=== PATIENT | female | born 1980 | race Caucasian/White ===

== ENCOUNTER 2023-04-29 14:19 | Outpatient (OUT) | payer OTHER, SELFPAY ==
--- NOTE | 2023-04-29 14:20 | XR_ITS ---
[address] [address] Patient Name: SERA MAHONEY MRN: [id number] date: 1980 Sex: F Assigned Patient Location: [facility] Current Patient Location: [facility] Accession/Order Number: [id number] Exam Date: 04/29/2023 14:20 Report Date: 04/29/2023 21:47 At the request of: STEFAN SOTO Procedure: XR ankle RT min 3V PROCEDURE: XR ankle RT min 3V COMPARISON: 02/20/2023 HISTORY: RIGHT ANKLE PAIN FINDINGS: BONES:Stable talus arthroplasty. Moderate enthesopathic spurring of the calcaneus. No acute fracture, dislocation or joint effusion SOFT TISSUES:Negative. No visible soft tissue swelling. EFFUSION:No significant joint effusion OTHER: Negative. IMPRESSION: Stable talus arthroplasty Electronically authenticated by: WELLINGTON NIX Date: 04/29/2023 21:47
== END 2023-04-29 14:20 | disposition home or self-care (01) ==
LOC: RAD 14:19
PROVIDERS: Visit Provider Physician Assistant
DX: M19.171 Post-traumatic osteoarthritis, right ankle and foot (principal)
CPT/HCPCS: 73610

== ENCOUNTER 2023-11-20 10:46 | Outpatient (OUT) | payer OTHER, SELFPAY ==
--- NOTE | 2023-11-20 | XR_ITS ---
The [address] [address] Patient Name: SERA MAHONEY MRN: [id number] date: 1980 Sex: F Assigned Patient Location: [facility] Current Patient Location: [facility] Accession/Order Number: [id number] Exam Date: 11/20/2023 10:50 Report Date: 11/20/2023 12:37 At the request of: FRANCIA COLLAZO Procedure: XR ankle RT min 3V PROCEDURE: XR ankle RT min 3V COMPARISON: 04/29/2023 HISTORY: RIGHT ANKLE PAIN FINDINGS: BONES:Stable talus replacement. Anatomic alignment with no acute fracture, dislocation or mechanical failure. Mild to moderate degenerative changes with joint space narrowing. Moderate enthesopathic spurring of the calcaneus at the Achilles and plantar insertions SOFT TISSUES:Negative. No visible soft tissue swelling. EFFUSION:None visible. OTHER: Negative. XR/XR ankle RT min 3V IMPRESSION: Stable talus replacement Electronically authenticated by: WELLINGTON NIX Date: 11/20/2023 12:37
== END 2023-11-20 10:47 | disposition home or self-care (01) ==
LOC: RAD 10:46
PROVIDERS: Visit Provider Podiatrist Foot & Ankle Surgery
DX: Z96.661 Presence of right artificial ankle joint (principal)
CPT/HCPCS: 73610

== ENCOUNTER 2023-12-04 09:27 | Outpatient (OUT) | payer OTHER, SELFPAY ==
--- OUTSIDE RECORDS SUMMARY | 2023-12-04 09:33 | XMS_ITS | CCD ---
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 HETAL RAMOS Primary Care ARLETH Ji Attending Unavailable CELESTE, Dr. HETAL RAMOS Primary Care ARLETH Ji Attending Unavailable CELESTE, Dr. HETAL RAMOS Referring Unapai labviola ALONSO, Dr. HETAL RAMOS Primary Care Unavai labviola ALONSO, Dr. HETAL RAMOS Attending Unavai labviola ALONSO, Dr. HETAL RAMOS Referring Unavai labviola ALONSO, Dr. HETAL RAMOS Attending Unavai labviola ALONSO, Dr. HETAL RAMOS Referring Unavai labviola ALONSO, Dr. HETAL RAMOS Primary Care Dinavai labviola ALONSO, Dr. HETAL RAMOS Primary Care Dinapai labviola ALONSO, Dr. HETAL RAMOS Attending Unavai labviola ALONSO, Dr. HETAL RAMOS Referring Unavai lable ALONSO, Dr. HETAL RAMOS Attending Unavai labviola ALONSO, Dr. HETAL RAMOS Referring Unavai labviola ALONSO, Dr. HETAL RAMOS Primary Care DinavaFRANCIA Mukherjee Admitting Unavailable FRANCIA COLLAZO Attending Unavailable BOYD, DR WELLINGTON Forrest Consulting Unavailable FRANCIA COLLAZO Consulting Unavailable FRANCIA COLLAZO Admitting Unavailable FRANCIA COLLAZO Attending Unavailable LIT, DR JERZY Watts Consulting Unavailable FRANCIA COLLAZO Consulting Unavailable FRANCIA COLLAZO Admitting Unavailable HIGHLANDER, FRANCIA Anderson Attending Unavailable LIT, DR JERZY Watts Consulting Unavailable HIGHLANDER, FRANCIA Anderson Consulting Unavailable HIGHLANDER, FRANCIA Anderson Admitting Unavailable HIGHLANDER, FRANCIA Anderson Attending Unavailable HIGHLANDER, FRANCIA Anderson Admitting Unavailable HIGHLANDER, FRANCIA Anderson Attending Unavailable ZIEBER, DR JERZY Watts Consulting Unavailable HIGHLANDER, FRANCIA Anderson Consulting Unavailable HIGHLANDER, FRANCIA Anderson Admitting Unavailable HIGHLANDER, FRANCIA Anderson Attending Unavailable HIGHLANDER, FRANCIA Anderson Consulting Unavailable COOPERMARLYN Consulting Unavailable HIGHLANDER, FRANCIA Anderson Admitting Unavailable HIGHLANDER, FRANCIA Anderson Attending Unavailable HIGHLANDER, FRANCIA Anderson Consulting Unavailable KERN, CALEB Consulting Unavailable JOSE ., JENNI MITCHELL Consulting Unavailable SHARP, ELYSE Consulting Unavailable JEFF II, KIM Consulting Unavailable HIGHLANDER, FRANCIA Anderson Admitting Unavailable HIGHLANDER, FRANCIA Anderson Attending Unavailable ZIMARIUSZER, DR JERZY Watts Consulting Unavailable HIGHLANDER, FRANCIA Anderson Consulting Unavailable RbadenCesar agarwalif Unavailable Celeste VALE, Hetal Recio Primary Care Provider Hetal Alonso MD K Unavailable ALONSO, HETAL Primary Care Unavailable HUTCHINSON DPM, KOREY Attending Unavailable HUTCHINSON DPM, KOREY Referring Unavailable ALONSO, HETAL Primary Care Unavailable DEWAYNE GARRISON MD Attending Unavailable DEWAYNE GARRISON MD Referring Unavailable ALONSO, HETAL Primary Care Unavailable ALONSO, HETAL Primary Care Unavailable STEFAN SOTO Attending Unavailabl e STEFAN SOTO Referring Unavailabl e DEWAYNE GARRISON MD Attending Unavailable DEWAYNE GARRISON MD Referring Unavailable ALONSO, HETAL Primary Care Unavailable ALONSO, HETAL Primary Care Unavailable ALONSO, HETAL Primary Care Unavailable STEFAN SOTO Attending Unavailabl e ALONSO, HETAL K Attending Unavailable ALONSO, HETAL K Primary Care Unavailable ALONSO, HETAL K Attending Unavailable ALONSO, HETAL K Primary Care Unavailable ALONSO, HETAL Primary Care Unavailable HIGHLANDER, FRANCIA Anderson Attending Unavailable ALONSO, HETAL Primary Care Unavailable STEFAN SOTO Attending Unavailabl e STEFAN SOTO Referring Unavailabl e ALONSO, HETAL Primary Care Unavailable HUTCHINSON DPM, KOREY Attending Unavailable ALONSO, HETAL Primary Care Unavailable HUTCHINSON DPM, KOREY Attending Unavailable ALONSO, HETAL Primary Care Unavailable HUTCHINSON DPM, KOREY Attending Unavailable HUTCHINSON DPM, KOREY Referring Unavailable HETAL ALONSO MD Attending Unavailable HETAL ALONSO Primary Care Unavailable Allergies Allergy Classification Reported Allergen(s) Allergy Type Date of Onset Reaction(s) Facility Acetaminophen / oxyCODONE (2 sources) Acetaminophen / oxyCODONE; Translations: [Percocet TABS] [facility]: Macrolides (antibiotic) (1 source) Azithromycin; Translations: [Zithromax PACK] [facility] Work Phone: (20 sources) Acetaminophen / oxyCODONE; Translations: [Percocet TABS] Drug Allergy 2 Halluc[facility], Rash [facility] Work Phone: (18 sources) Azithromycin; Translations: [Zithromax PACK] Drug Allergy 2 [facility] Work Phone: (2 sources) Acetaminophen / oxyCODONE Drug Allergy [facility] [place] Repository (2 sources) Adhesive agent Drug allergy (disorder) [facility] [place] Repository (3 sources) Azithromycin; Translations: [AZITHROMYCIN] Drug Allergy 2 [facility] [place] Repository (1 source) Acetaminophen / oxyCODONE; Translations: [OXYCODONE-ACETAM INOPHEN] Drug Allergy [address] [facility] 3 Repository Medications Current Medications Medication Drug Class(es) Dates Sig (Normalized) Sig (Original) acetaminophen 325 mg / HYDROcodone bitartrate 5 mg oral tablet (6 sources) Opioid Agonist take 1 tablet by mouth every six hours HYDROcodone-Aceta minophen 5-325 MG 1 tablet as needed Orally every 6 hrs Active [id number] actuat albuterol 0.09 mg/actuat metered dose inhaler (1 source) beta2-Adrenergic Agonist Start: 10-21-2023 End: 10-20-2024 take 2 puff(s) by inhalation every four hours for wheezing albuterol (ProAir HFA) 90 mcg/actuation inhaler Indications: Bronchitis Inhale 2 puffs every 4 hours if needed for wheezing or shortness of breath. 8.5 g 0 10/21/2023 10/20/2024 Active amLODIPine 5 mg / benazepril hydrochloride 20 mg oral capsule (20 sources) Dihydropyridine Calcium Channel Irina, Angiotensin Converting Enzyme Inhibitor Start: 03-17-2023 End: 06-28-2023 take 1 capsule by mouth once daily amLODIPine-benaze priL (Lotrel) 5-20 mg capsule Indications: Benign essential hypertension Take 1 capsule by mouth once daily. 90 capsule 3 06/28/2023 Active Start: 12-14-2020 take 5-20 mg by mout h once daily amLODIPine Besy-Benazepril HCl - 5-20 MG Oral Capsule TAKE 1 CAPSULE Daily Quantity: 90 Refills: 1 Ordered: 28-Jul-2022 Hetal Alonso MD Start : 14-Dec-2020 Active amLODIPine Benzoate 1 MG/ML (6 sources) take 1 mg by mouth once daily amLODIPine Benzoate 1 MG/ML 5 mL Orally Once a day Active DULoxetine 20 mg delayed release oral capsule (13 sources) Serotonin and Norepinephrine Reuptake Inhibitor Start: take 1 capsule by mouth once daily in the morning Cymbalta 20 MG 1 capsule Orally daily in the AM for 30 days Apr, Active Start: 07-18-2022 take 1 capsule by mo uth once daily DULoxetine HCl - 20 MG Oral Capsule Delayed Release Particles one by mouth daily Quantity: 90 Refills: 3 Ordered: 18-Jul-2022 Hetal Alonso MD Start : 18-Jul-2022 Active Ethinyl Estradiol / Levonorgestrel (2 sources) Progestin, Estrogen, Progestin-containing Intrauterine Device Start: 04-12-2020 take 1 tablet by mouth once daily L norgest/e.estradioL-e.estrad (Seasonique) 0.15 mg-30 mcg (84)/10 mcg (7) tablets,dose pack,3 month tablet Take 1 tablet by mouth once daily. 0 04/12/2020 Active gabapentin 300 mg oral capsule (6 sources) Anti-epileptic Agent take 1 capsule by mouth twice daily Gabapentin 300 MG 1 capsule Orally twice daily G89.29 Active meloxicam 15 mg oral tablet (17 sources) Nonsteroidal Anti-inflammatory Drug Start: 06-28-2023 End: 06-28-2023 take 1 tablet by mouth once daily meloxicam (Mobic) 15 mg tablet Indications: Avascular necrosis of right talus (CMS/HCC) Take 1 tablet (15 mg) by mouth once daily. 90 tablet 3 06/28/2023 Active Start: 03-24-2021 End: 07-18-2022 Meloxicam 15 MG Oral Tablet Quantity: 0 Refills: 0 Ordered: 24-Mar-2021 DO Start : 24-Mar-2021 End : 18-Jul-2022 Complete norethindrone 0.35 mg oral tablet (6 sources) take 1 tablet by akhil th every twenty-four hours Norethindrone 0.35 MG 1 tablet Orally Once a day Active [id number] Amitriptyline HCL 2%, Capsaicin 0.025%, Clonidine HCL 0.23%, Gabapentin 6%, Lidocaine HCL 5% (6 sources) Start: 04-05-2023 [id number] Amitriptyline HCL 2%, Capsaicin 0.025%, Clonidine HCL 0.23%, Gabapentin 6%, Lidocaine HCL 5% as directed Topical 1-2 grams every 6-8 hours as needed for 30 days Apr, Active TENS Unit (1 source) Start: 05-24-2023 TENS Unit Use as directed. May, Active Completed/Discontinued Medications Medication Drug Class(es) Dates Sig (Normalized) Sig (Original) amoxicillin 500 mg oral tablet (2 sources) Penicillin-class Antibacterial Start: 09-11-2022 take 1 tablet by mouth twice daily Amoxicillin 500 MG Oral Tablet One by mouth twice a day Quantity: 20 Refills: 1 Ordered: 11-Sep-2022 Hetal Alonso MD Start : 11-Sep-2022 Active betamethasone 0.5 mg/ml / clotrimazole 10 mg/ml topical cream (12 sources) Azole Antifungal, Corticosteroid Start: 08-11-2021 End: 07-18-2022 Clotrimazole-Betam ethasone 1-0.05 % External Cream APPLY AND RUB IN A THIN FILM TO AFFECTED AREAS TWICE DAILY.(AM AND PM). Quantity: 1 Refills: 3 Ordered: 11-Aug-2021 Hetal Alonso MD Start : 11-Aug-2021 End : 18-Jul-2022 Complete brompheniramine maleate 0.4 mg/ml / dextromethorphan hydrobromide 2 mg/ml / pseudoephedrine hydrochloride 6 mg/ml oral solution (1 source) alpha-Adrenergic Agonist, Uncompetitive N-szgkbi-G-aspartat e Receptor Antagonist, Sigma-1 Agonist Start: 10-21-2023 End: 10-31-2023 take 5 mL by mouth four times daily as needed for cough brompheniramine-ps eudoeph-DM 2-30-10 mg/5 mL syrup Indications: Bronchitis Take 5 mL by mouth 4 times a day as needed for cough for up to 10 days. 120 mL 0 10/21/2023 10/31/2023 24 hr buPROPion hydrochloride 150 mg extended release oral tablet (8 sources) Aminoketone Start: 03-24-2021 End: 07-18-2022 take 1 tablet by mouth once daily buPROPion HCl ER (XL) 150 MG Oral Tablet Extended Release 24 Hour TAKE 1 TABLET BY MOUTH DAILY Quantity: 90 Refills: 0 Ordered: 23-Mar-2022 Hetal Alonso MD Start : 24-Mar-2021 End : 18-Jul-2022 Complete Camrese 0.15-0.03 &0.01 MG Oral Tablet (17 sources) Start: 12-12-2020 Camrese 0.15-0.03 &0.01 MG Oral Tablet Quantity: 0 Refills: 0 Ordered: 12-Dec-2020 DO Start : 12-Dec-2020 Active ciprofloxacin 500 mg oral tablet (1 source) Quinolone Antimicrobial Start: 12-11-2021 take 1 tablet by mouth twice daily Ciprofloxacin HCl - 500 MG Oral Tablet one by mouth twice a day for 7 days Quantity: 14 Refills: 0 Ordered: 11-Dec-2021 Hetal Alonso MD Start : 11-Dec-2021 Active Disability Placard (7 sources) Start: 07-18-2022 Disability Placard Handicap Placard 5years, DX: Arthritis Quantity: 2 Refills: 0 Ordered: 18-Jul-2022 Hetal Alonso MD Start : 18-Jul-2022 Active fluconazole 150 mg oral tablet (15 sources) Azole Antifungal Start: 10-21-2023 End: 10-21-2023 take 1 tablet by mouth once fluconazole (Diflucan) 150 mg tablet Indications: Bronchitis Take 1 tablet (150 mg) by mouth 1 time for 1 dose. 1 tablet 0 10/21/2023 10/21/2023 Start: 09-11-2022 Fluconazole 15 0 MG Oral Tablet TAKE 1 TABLET ONCE AND REPEAT IN 1 WEEK. Quantity: 2 Refills: 1 Ordered: 11-Sep-2022 Hetal Alonso MD Start : 11-Sep-2022 Active Start: 08-11-2021 End: 07-18-2022 take 1 tablet by mouth once daily Fluconazole 100 MG Oral Tablet one by mouth daily Quantity: 7 Refills: 0 Ordered: 11-Aug-2021 Hetal Alonso MD Start : 11-Aug-2021 End : 18-Jul-2022 Complete ibuprofen 800 mg oral tablet (10 sources) Nonsteroidal Anti-inflammatory Drug Start: 12-11-2021 End: 07-18-2022 take 1 tablet by mouth every eight hours at mealtime as needed Ibuprofen 800 MG Oral Tablet TAKE 1 TABLET EVERY 8 HOURS WITH FOOD NEEDED. Quantity: 30 Refills: 1 Ordered: 11-Dec-2021 Hetal Alonso MD Start : 11-Dec-2021 End : 18-Jul-2022 Complete ketorolac tromethamine 10 mg oral tablet (9 sources) Nonsteroidal Anti-inflammatory Drug, Cyclooxygenase Inhibitor Start: 12-18-2021 End: 07-18-2022 take 1 tablet by mouth every six hours at mealtime Ketorolac Tromethamine 10 MG Oral Tablet TAKE 1 TABLET EVERY 6 HOURS WITH FOOD. Quantity: 20 Refills: 0 Ordered: 18-Dec-2021 Arleth Johnson Start : 18-Dec-2021 End : 18-Jul-2022 Complete methylPREDNISolone (1 source) Corticosteroid Start: 10-21-2023 End: 10-28-2023 methylPREDNISolone (Medrol Dospak) 4 mg tablets Indications: Bronchitis Take as directed on package. 21 tablet 0 10/21/2023 10/28/2023 tamsulosin hydrochloride 0.4 mg oral capsule (10 sources) alpha-Adrenergic Irina Start: 12-11-2021 End: 07-18-2022 take 1 capsule by mouth once daily Tamsulosin HCl - 0.4 MG Oral Capsule TAKE 1 CAPSULE Daily Quantity: 30 Refills: 0 Ordered: 11-Dec-2021 Hetal Alonso MD Start : 11-Dec-2021 End : 18-Jul-2022 Complete Problems Active Problems Problem Classification Problem Date Documented Da te Episodic/Chronic Adjustment disorders (19 sources) Adjustment disorder with mixed anxiety and depressed mood; Translations: [Adjustment disorder with mixed anxiety and depressed mood] Onset: 07-18-2023 07-18-2023 Chronic Chronic obstructive pulmonary disease and bronchiectasis (4 sources) Bronchitis, not specified as acute or chronic; Translations: [Bronchitis] Onset: 10-21-2023 Episodic Deficiency and other anemia (1 source) Anemia, unspecified; Translations: [ANEMIA UNSPECIFIED] Onset: 01-23-2023 Episodic Endometriosis (2 sources) Uterine adenomyosis; Translations: [Adenomyosis] Onset: 08-17-2013 07-18-2023 Chronic Essential hypertension (20 sources) Benign essential hypertension; Translations: [Benign essential hypertension] Onset: 01-23-2023 06-28-2023 Chronic Fracture of lower limb (17 sources) Fracture of talus; Translations: [Closed fracture of astragalus] Episodic Immunizations and screening for infectious disease (20 sources) Contact with and (suspected) exposure to other viral communicable diseases; Translations: [Exposure to influenza] Episodic Malaise and fatigue (17 sources) Fatigue; Translations: [Other malaise and fatigue] Episodic Comment on above: Added by Problem Kenia gilliam Migration; 2013-10-13; Mood disorders (19 sources) Depressive disorder; Translations: [Depressive disorder, not elsewhere classified] Onset: 07-18-2023 07-18-2023 Chronic Comment on above: Added by Problem Kenia gilliam Migration; 2013-10-13; Osteoarthritis (5 sources) Post-traumatic osteoarthritis, right ankle and foot; Translations: [POST-TRAUM OSTEOARTHRITIS RT ANK FT] Onset: 01-23-2023 Chronic Other acquired deformities (1 source) Contracture, right ankle; Translations: [CONTRACTURE RIGHT ANKLE] Onset: 01-23-2023 Chronic Other aftercare (1 source) alf (current) use of aspirin; Translations: [SKI TOW OPERATOR CURRENT USE OF ASPIRIN] Onset: 01-23-2023 Episodic Other bone disease and musculoskeletal deformities (20 sources) Avascular necrosis of the talus; Translations: [Aseptic necrosis of talus] Onset: 06-28-2023 06-28-2023 Chronic Other bone disease and musculoskeletal deformities (7 sources) Idiopathic aseptic necrosis of right ankle; Translations: [IDIOPATH ASEPTIC NECROSIS RT ANKLE] Onset: 01-08-2023 Chronic Other connective tissue disease (1 source) Achilles tendinitis, right leg; Translations: [ACHILLES TENDINITIS RIGHT LEG] Onset: 01-23-2023 Episodic Other connective tissue disease (1 source) Posterior tibial tendinitis, right leg; Translations: [POSTERIOR TIBIAL TENDINITIS RT LEG] Onset: 01-23-2023 Episodic Other connective tissue disease (1 source) Plantar fascial fibromatosis; Translations: [PLANTAR FASCIAL FIBROMATOSIS] Onset: 01-23-2023 Episodic Other injuries and conditions due to external causes (17 sources) Injury of hip region; Translations: [Hip and thigh injury] Episodic Other nervous system disorders (6 sources) Chronic pain; Translations: [Other chronic pain] Chronic Other nervous system disorders (6 sources) Complex regional pain syndrome, type I; Translations: [Complex regional pain syndrome I, unspecified] Chronic Other nervous system disorders (2 sources) Other chronic pain Chronic Other nervous system disorders (2 sources) Complex regional pain syndrome I, unspecified Chronic Other nervous system disorders (4 sources) Reflex sympathetic dystrophy of lower extremity; Translations: [Complex regional pain syndrome I of right lower limb] Chronic Other nervous system disorders (2 sources) Complex regional pain syndrome of lower limb; Translations: [Complex regional pain syndrome I of unspecified lower limb] Onset: 05-14-2023 07-18-2023 Chronic Other nervous system disorders (2 sources) Chronic pain syndrome; Translations: [Chronic pain syndrome] Onset: 05-14-2023 07-18-2023 Chronic Other non-traumatic joint disorders (1 source) Other specified joint disorders, right ankle and foot; Translations: [OTHER SPEC JOINT D/O RT ANKLE FOOT] Onset: 01-23-2023 Episodic Other non-traumatic joint disorders (7 sources) Pain in right ankle and joints of right foot; Translations: [PAIN IN RIGHT ANKLE] Onset: 07-25-2022 Episodic Other nutritional; endocrine; and metabolic disorders (20 sources) Body mass index 40+ - severely obese; Translations: [Body Mass Index 50.0-59.9, adult] Onset: 05-14-2023 07-18-2023 Chronic Other screening for suspected conditions (not mental disorders or infectious disease) (7 sources) Patient encounter status; Translations: [Other screening mammogram] Episodic Residual codes; unclassified (17 sources) Uses contraception; Translations: [Other specified conditions influencing health status] Episodic Residual codes; unclassified (17 sources) H/O: ; Translations: [Personal history of other genital system and obstetric disorders] Episodic Unclassified (1 source) PERSONAL HISTORY OF COVID-19; Translations: [PERSONAL HISTORY OF COVID-19] Onset: 01-23-2023 Past or Other Problems Problem Classification Problem Date Documented Date Episodic/Chronic Abdominal pain (16 sources) Right flank pain; Translations: [Abdominal pain, other specified site] Onset: 07-18-2023 Resolved: 07-18-2023 07-18-2023 Episodic Calculus of urinary tract (20 sources) Renal colic; Translations: [Renal colic] Onset: 07-18-2023 Resolved: 07-18-2023 07-18-2023 Episodic Genitourinary symptoms and ill-defined conditions (18 sources) Blood in urine; Translations: [Hematuria, unspecified] Onset: 07-18-2023 Resolved: 07-18-2023 07-18-2023 Episodic Lymphadenitis (4 sources) Lymphadenopathy; Translations: [Enlargement of lymph nodes] Onset: 07-18-2023 Resolved: 07-18-2023 07-18-2023 Episodic Mycoses (18 sources) Candidal intertrigo; Translations: [Candidiasis of skin and nails] Onset: 07-18-2023 Resolved: 07-18-2023 07-18-2023 Episodic Other connective tissue disease (5 sources) Cramp in lower limb; Translations: [Cramp of limb] Onset: 07-18-2023 Resolved: 07-18-2023 07-18-2023 Episodic Other connective tissue disease (4 sources) Pain in right foot; Translations: [PAIN IN RIGHT FOOT] Onset: 11-14-2022 Episodic Other injuries and conditions due to external causes (2 sources) Injury of left hip region; Translations: [Unspecified injury of left hip, initial encounter] Onset: 07-18-2023 Resolved: 07-18-2023 07-18-2023 Episodic Other non-traumatic joint disorders (2 sources) Ankle pain; Translations: [Pain in right ankle and joints of right foot] Onset: 05-14-2023 Resolved: 07-18-2023 07-18-2023 Episodic Other and delivery including normal (2 sources) Vaginal delivery; Translations: [Encounter for full-term uncomplicated delivery] Onset: 06-03-2012 07-18-2023 Episodic Other upper respiratory disease (19 sources) Congestion of nasal sinus; Translations: [Other disease of nasal cavity and sinuses] Onset: 07-18-2023 Resolved: 07-18-2023 07-18-2023 Episodic Other upper respiratory infections (20 sources) Acute pharyngitis; Translations: [Acute pharyngitis] Onset: 07-18-2023 Resolved: 07-18-2023 07-18-2023 Episodic Residual codes; unclassified (19 sources) History of ankle surgery; Translations: [Other postprocedural status] Onset: 05-14-2023 07-18-2023 Episodic Spondylosis; intervertebral disc disorders; other back problems (20 sources) Backache; Translations: [Backache, unspecified] Onset: 07-18-2023 Resolved: 07-18-2023 Episodic Superficial injury; contusion (19 sources) Foreign body of foot; Translations: [Superficial foreign body (splinter) of foot and toe(s), without major open wound and without mention of infection] Onset: 07-18-2023 Resolved: 07-18-2023 07-18-2023 Episodic Unclassified (2 sources) Onset: 06-28-2023 Resolved: 10-21-2023 06-28-2023 Results Test Name Value Interpretation Reference Range Facility Ambulatory Clinical Summaryo n 05-14-2023 Ambulatory Clinical Summary SERA WOO :1980 Visit Date:05/14/2023 Ambulatory Visit Instructions Your Diagnosis Right ankle pain CRPS 1, lower extremity History of ankle surgery Morbid obesity Chronic pain syndrome Your Care Team Attending Physician - DEWAYNE GARRISON MD Primary Care Physician - HETAL ALONSO MD Referring Physician - DEWAYNE GARRISON MD Procedures Performed OPEN REDUCTION OF A DISLOCATED TALUS (04/12/2020) Cholecystectomy; ACCESSORY NAVICULAR BONE REMOVAL Cholecystectomy (procedure) Ankle Surgery Discharge Vitals Heart Rate (Apical) 88 Blood Pressure 141/88 Height 66.14 in (168 cm) Weight 280.04 lb (127 kg) BMI 45 Systolic Blood Pressure: 141 mmHg High (05/14/23 11:18:00) Diastolic Blood Pressure: 88 mmHg (05/14/23 11:18:00) Apical Heart Rate: 88 bpm (05/14/23:18:00) SpO2: 98 % (05/14/23 11:18:00) Mean Arterial Pressure: 106 mmHg (05/14/23 11:18:00) BP Site2: Left arm (05/14/23 11:18:00) Height/Length Measured: 168 cm (05/14/23 11:18:00) Weight Measured: 127 kg (05/14/23 11:18:00) Body Mass Index Measured: 45 kg/m2 (05/14/23 11:18:00) Weight Measured - lbs2: 280 lb (05/14/23:18:00) Height/Length Measured - in2: 66 in (05/14/23 11:18:00) Body Mass Index Measured English2: 45.19 kg/m2 (05/14/23 11:18:00) BSA: 2.43 m2 (05/14/23 11:18:00) Ht/Wt Measurement Refused by Patient?2: No (05/14/23 11:18:00) What to do next Scheduled Follow-Up Appointments Appointment Type Reason for visit Day With Date Time Where City&State PMR Ortho F/U - (45) Saturday Mirza D (PT) (2) May 15, 2023 09:00 am EDT LW PT [address] [facility] [address] PM Follow Up LE pain Saturday DEWAYNE GARRISON MD June 17, 2023 01:15 pm EDT MM PMCL [address] [facility] [address] [facility] [address] Medications What How Much When Why Instructions New meloxicam (Mobic 15 mg oral tablet) 1 Tabs Oral DAILY Duration: 30 Days Refills: 5 Pickup at [facility] #[id number] New topiramate (Topamax 50 mg oral tablet) See instructions Refills: 5 1-2 tabs ORAL HS Pickup at [facility] #[id number] New venlafaxine (venlafaxine 37.5 mg oral tablet = effexor) 1 Tabs Oral TWICE A DAY Duration: 30 Days Refills: 5 Pickup at [facility] #[id number] Unchanged acetaminophen-hydrocodone (acetaminophen-HYDROcodone 325 mg-5 mg oral tablet) 2 Tabs Oral EVERY SIX HOURS as needed for Moderate to Severe Pain Closed dislocation of right talus Unchanged amlodipine-benazepril (amlodipine-benazepril 5 mg-20 mg oral capsule) 90 EA, TAKE 1 CAPSULE BY MOUTH DAILY Unchanged ethinyl estradiol-levonorgestrel (Ashlyna oral tablet) 1 Tabs Oral AT BEDTIME Unchanged methylPREDNISolone (Medrol 4 mg oral tablet) 1 Packets Oral DAILY Duration: 6 Days as directed on package labeling Unchanged ondansetron (Zofran 8 mg oral tablet) 1 Tabs Oral EVERY EIGHT HOURS as needed for as needed for nausea/vomiting Pharmacy Information [facility] #[id number]: [address] [place], [place] [id number] [phone] What How Much When Comments Stop Taking apixaban (Eliquis 2.5 mg oral tablet) 1 Tabs Oral TWICE A DAY Duration: 30 Days Stop Taking DULoxetine (DULoxetine 20 mg oral delayed release capsule) 90 EA, TAKE 1 CAPSULE BY MOUTH DAILY Allergies Percocet Hallucination Zithromax HIVES Problems Ongoing - Any problem that you are currently receiving treatment for. Acute pharyngitis Adjustment disorder with mixed anxiety and depressed mood Avascular necrosis of the talus Backache Benign essential hypertension Blood in urine Body mass index 40+ - severely obese Candidal intertrigo Chronic pain syndrome Congestion of nasal sinus CRPS 1, lower extremity History of ankle surgery Lymphadenopathy Morbid obesity Right ankle pain Common Emergency Awareness Tips IS IT A STROKE? Act FAST and Check for these signs: FACE Does the face look uneven? ARM Does one arm drift down? SPEECH Does their speech sound strange? TIME Call at any sign of stroke Heart Attack Signs Chest discomfort: Most heart attacks involve discomfort in the center of the chest and lasts more than a few minutes, or goes away and comes back. It can feel like uncomfortable pressure, squeezing, fullness or pain. Discomfort in upper body: Symptoms can include pain or discomfort in one or both arms, back, neck, jaw or stomach. Shortness of breath: With or without discomfort. Other signs: Breaking out in a cold sweat, nausea, or lightheaded. Remember, MINUTES DO MATTER. If you experience any of these heart attack warning signs, call --1 to get immediate medical attention! [facility] Comprehensive Intake - Texto n 05-14-2023 Comprehensive Intake - Text Comprehensive Intake Entered On: 05/14/2023 11:20 EDT Performed On: 05/14/2023 11:18 EDT by Destinee James Summary Chief Complaint : pt reports pain in ankle and foot, pt rartes pain a 5 out of 10 on vas, pt name and verifed. Bladder Control Issues? : No Urine Leakage? : No Presence or absence of urinary incontinence assessed : Yes CPT-II Medication list doc'd in medical record : Yes Influenza immunization administered or previously received : No Pneumococcal vaccine administered or previously received : No Destinee James - 05/14/2023 11:18 EDT Measurements Ht/Wt Measurement Refused by Patient? : No Weight Measured : 127 kg(Converted to: 280 lb 0 oz, 279.987 lb) Height/Length Measured : 168 cm(Converted to: 5 ft 6 in, 66.14 in) Body Mass Index Measured : 45 kg/m2 Body Mass Index documented : Yes Weight Measured - lbs : 280 lb(Converted to: 280 lb 0 oz, 127 kg) Height/Length Measured - in : 66 in(Converted to: 5 ft 6 in, 168 cm) Body Mass Index Measured Fijian : 45.19 kg/m2 BSA Fijian : 2.43 m2 Destinee James - 05/14/2023 11:18 EDT Vitals Require BP : Yes Systolic Blood Pressure : 141 mmHg (HI) Diastolic Blood Pressure : 88 mmHg Mean Arterial Pressure : 106 mmHg Apical Heart Rate : 88 bpm BP Site : Left arm Last Systolic BP : greater than or equal to 140 mmHg Last Diastolic BP : 80-89 mmHg SpO2 : 98 % Pain Present : No actual or suspected pain Pain : 5 Pain severity quantified : No pain present Destinee James - 05/14/2023 11:18 EDT Infection Screening - Ambulatory Exposure AND/OR close contact with a person under investigation or laboratory-confirmed COVID-19 individual within 14 days of symptom onset AND/OR any of the following: : No Do you live/work in a high risk situation (congregated living, hemodialysis, infusion clinic, correction, assisted living, long term, homeless care home, etc.)? : No Destinee James - 05/14/2023 11:18 EDT Depression Screening Is patient currently : None of the Below Feeling Down, Depressed, Hopeless : Not at all Little Interest - Pleasure in Activities : Not at all Initial Depression Screen Score : 0 Depression Screening Score 0 : No Destinee James - 05/14/2023 11:18 EDT Falls Risk Assessment Is the patient ambulatory (mobile) : Yes Have you had 2 or more falls in the past year : No Have you had a fall within the past year that has caused an injury : No Patient screen for fall risk : no falls in last year OR 1 fall with no injury in last year Destinee James - 05/14/2023 11:18 EDT [facility] PM-OP Progress Notes-Provide puja 05-14-2023 PM-OP Progress Notes-Provider Chief Complaint pt reports pain in ankle and foot, pt rartes pain a 5 out of 10 on vas, pt name and verifed. History of Present Illness This is a pleasant 42-year-old patient who presents to the pain clinic at [facility], for evaluation and treatment of her right ankle pain. Patient is referred to me by Dr. Gomez podiatry. Patient is accompanied by her who remains with her for the entire visit. History of her right ankle pain dates back to 3 years ago when she had a fall off a ladder. Patient suffered dislocation of her right ankle and he had surgery done. Patient continued to have pain and went to see a doctor in [place]. She had 3 deep printed talus implant done in December 2020. Patient states that surgery helped her a little however she continues to have chronic right ankle pain. She had her third surgery in April 2021 which was plantar fasciotomy. The surgery did not help her at all. Finally she had a her for surgery in January 2023 which was right ankle arthroplasty. Patient is still continues to have right foot and ankle pain. She has been walking with a cane. Patient was working 3 years ago and has not been able to go back to work since her injury. 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 Patient does want to go back to work and be able to perform activities of her daily living without any assistance. Patient has had physical therapy for 3 years and is still in physical therapy at [facility]. Her last session is tomorrow. Her physical therapy has been discontinued as she has not shown much progress. Patient hands been on and will which caused stomach irritation she stopped it. She had tried Cymbalta 20 mg daily which was not effective and she stopped it. She is currently on gabapentin 600 mg at bedtime without any relief. Patient states the gabapentin results and swelling of her right ankle. Patient has had muscle relaxants in the past which make her too sleepy. Patient had a lumbar sympathetic block 2 months ago which did not help her at all. She had an MRI of lumbar spine which shows a herniated disc at L5-S1 level. She was offered an epidural block however patient is leery about getting any spine injections at this point. Patient rates her pain as 3 on a visual analog scale of 0-10 while she is sitting. However her pain goes to a level of 6 on the same scale with walking. On her worst days her pain is rated as 8-9 on the same scale. She describes the pain as stabbing and burning in character. Aggravating factors include walking and prolonged standing. Alleviating factors include application of ice, elevation of RIGHT foot and rest. Patient also has difficulty sleeping due to nocturnal pain and spasm. Patient's pain affects activities of daily living. She rates quality of social life is below average with current treatment. Review of Systems Constitutional symptoms: No fever, Skin symptoms: No rash, Eye symptoms: No recent vision problems, ENMT symptoms: No sore throat, Respiratory symptoms: No shortness of breath, no cough. Cardiovascular symptoms: No chest pain, Gastrointestinal symptoms: No abdominal pain, no vomiting, no diarrhea. Genitourinary symptoms: No dysuria, Musculoskeletal symptoms: No back pain, no Muscle pain. Neurologic symptoms Weakness, No numbness, Additional review of systems information: All other systems reviewed and otherwise negative, except for what is mentioned in HPI section. Physical Exam Vitals & Measurements Systolic Blood Pressure: 141 mmHg High (05/14/23 11:18:00) Diastolic Blood Pressure: 88 mmHg (05/14/23 11:18:00) Apical Heart Rate: 88 bpm (05/14/23 11:18:00) SpO2: 98 % (05/14/23 11:18:00) Mean Arterial Pressure: 106 mmHg (05/14/2318:) BP Site2: Left arm (05/14/23:18:) Height/Length Measured: 168 cm (05/14/2318:) Weight Measured: 127 kg (05/14/2318:) Body Mass Index Measured: 45 kg/m2 (05/14/23:18:) Weight Measured - lbs2: 280 lb (05/14/2318:) Height/Length Measured - in2: 66 in (05/14/2318:) Body Mass Index Measured English2: 45.19 kg/m2 (05/14/2318:) BSA: 2.43 m2 (05/14/23:) Ht/Wt Measurement Refused by Patient?2: No (05/14/23) Depression Screening Scores Initial Depression Screen Score: 0 (05/14/2318:) Fall Risk Assessment Is the patient ambulatory (mobile): Yes (05/14/23:18:) Have you had a fall within the past: No (05/14/2318:) Have you had 2 or more falls in the past: No (05/14/2318:) Vital signs reviewed: normal The patient is awake, alert and oriented in time space and person and patient's affect is somewhat depressed. She does appear somewhat anxious. Patient is cooperative and does not appear to be in any acute distress. She is morbidly obese. She does exhibit some chronic pain behaviors. Thoughts are: organized Speech is clear and coherent. Gait is antalgic and is appropriate for the patient's condition. Pupils areequal, round and reactive to li (more content not included)... [facility] PT Outpatient Time Spent Wit h Pt-Texton 04-16-2023 PT Outpatient Time Spent With Pt-Text PT Outpatient Time Spent With Patient Entered On: 04/16/2023 17:54 EDT Performed On: 04/16/2023 17:53 EDT by Meredith Menendez PTA Time Spent with Patient - Outpatient PT Time In : 08:00 EST PT Time Out : 08:45 EST PT Therapeutic Exercise Time : 45 minutes ADJUNCT LATIN PROFESSOR Therapeutic Exercise Units : 3 units PT Total Timed Code Treatment Units : 3 units PT Total Timed Code Tx Minutes : 45 minutes 8 Min Rule Unit Check PT OP : 3 units PT Total Treatment Time Rehab : 45 minutes 8 Min Rule Unit Difference PT OP : 0 ShonMeredith zaragoza PTA - 04/16/2023 17:53 EDT [facility] PT Outpatient Time Spent Wit h Pt-Texton 03-26-2023 PT Outpatient Time Spent With Pt-Text PT Outpatient Time Spent With Patient Entered On: 03/26/2023 11:30 EDT Performed On: 03/26/2023 11:26 EDT by Meredith Menendez PTA Time Spent with Patient - Outpatient PT Time In : 08:45 EST PT Time Out : 09:30 EST PT Vasopneumatic Devices Time : 15 minutes ADJUNCT LATIN PROFESSOR Vasopneumatic Devices Units : 1 units PT Soft Tissue Mobility Time : 30 minutes ADJUNCT LATIN PROFESSOR Soft Tissue Mobility Units : 2 units PT Total Timed Code Treatment Units : 2 units PT Total Timed Code Tx Minutes : 30 minutes 8 Min Rule Unit Check PT OP : 2 units PT Total Untimed Code Treatment Minutes : 15 minutes PT Total Treatment Time Rehab : 45 minutes 8 Min Rule Unit Difference PT OP : 0 Meredith Menendez PTA - 03/26/2023 11:26 EDT [facility] Phone Msgon 03-20-2023 Phone Msg - From: Lilia Schneider To: KOREY HUTCHINSON DPM; Sent: 02/25/2023 10:43:13 EDT Caller Name: SERA WOO; Caller Number: H , B [phone] Sera called and is having her EMG done on March 05. She needs a referral to pain management so we can send the note over. [facility] - From: Heather Prajapati To: KOREY HUTCHINSON DPM; Sent: 03/07/2023 09:47:53 EDT Subject: General Message General Message: Bryce, I am reaching out in regards to patient Sera Woo and the MRI L spine that was ordered for her. Currently her insurance is requesting additional information prior to approving the test. They want to know what type of treatment that she has had for her L spine within the last 12 weeks. I have spoke to Sera a few times and she is somewhat frustrated because the test is time sensitive due to her discomfort. She did explain to me that she has been in pt for her ankle and that she needs the mri before she can complete other medical treatments that relate to her ankle/ spine. I do know from experience that the insurance a lot of times has a check list of things they want to see done before approving spine mris that include conservative treatment for the spine directly. In her situation it would be helpful if you could provide them additional information regarding her special situation. If you would like to provide additional clinical notes they can be faxed to [employer] @ [phone] or to expedite the process, phoned in at [phone] mri case# for insurance is [id number] and should be included Thanks, Genevieve Omalley auth rep [phone] Jennifer speaking to [employer] for further needs regarding authorization [facility] Phone Msg - From: Emy Davis To: KOREY HUTCHINSON DPM; Sent: 03/07/2023 09:54:43 EDT Subject: MRI Caller Name: SERA WOO; Caller Number: H , B [phone] Sera called to ask for your help in getting MRI approved. She asked that you call her so she can explain the problems she is having and that she has been doing P.T. and wasn't sure if you were aware of that. Either a peer to peer or maybe an addendum to her note might help? She is aware you are out of the office today and won't get this message until Saturday. [phone] Malinda Connolly is speaking to [employer] in regards to further action needed [facility] PT Outpatient Time Spent Wit h Pt-Texton 03-14-2023 PT Outpatient Time Spent With Pt-Text PT Outpatient Time Spent With Patient Entered On: 03/14/2023 10:28 EDT Performed On: 03/12/2023 9:30 EDT by Meredith Menendez PTA Time Spent with Patient - Outpatient PT Time In : 08:45 EST PT Time Out : 09:30 EST PT Therapeutic Exercise Time : 45 minutes ADJUNCT LATIN PROFESSOR Therapeutic Exercise Units : 3 units PT Total Timed Code Treatment Units : 3 units PT Total Timed Code Tx Minutes : 45 minutes 8 Min Rule Unit Check PT OP : 3 units PT Total Treatment Time Rehab : 45 minutes 8 Min Rule Unit Difference PT OP : 0 Meredith Menendez PTA - 03/14/2023 10:[address] [facility] PT Outpatient Time Spent Wit h Pt-Texton 03-05-2023 PT Outpatient Time Spent With Pt-Text PT Outpatient Time Spent With Patient Entered On: 03/05/2023 14:10 EDT Performed On: 03/05/2023 14:09 EDT by Meredith Menendez PTA Time Spent with Patient - Outpatient PT Time In : 11:45 EST PT Time Out : 12:30 EST PT Therapeutic Exercise Time : 45 minutes ADJUNCT LATIN PROFESSOR Therapeutic Exercise Units : 3 units PT Total Timed Code Treatment Units : 3 units PT Total Timed Code Tx Minutes : 45 minutes 8 Min Rule Unit Check PT OP : 3 units PT Total Treatment Time Rehab : 45 minutes 8 Min Rule Unit Difference PT OP : 0 Meredith Menendez PTA - 03/05/2023 14:[address] [facility] PT Outpatient Time Spent Wit h Pt-Texton 02-21-2023 PT Outpatient Time Spent With Pt-Text PT Outpatient Time Spent With Patient Entered On: 02/21/2023 18:13 EDT Performed On: 02/21/2023 18:12 EDT by Meredith Menendez PTA Time Spent with Patient - Outpatient PT Time In : 10:15 EST PT Time Out : 11:00 EST PT Gait Training Time : 45 minutes ADJUNCT LATIN PROFESSOR Gait Training Units : 3 units PT Total Timed Code Treatment Units : 3 units PT Total Timed Code Tx Minutes : 45 minutes 8 Min Rule Unit Check PT OP : 3 units PT Total Treatment Time Rehab : 45 minutes 8 Min Rule Unit Difference PT OP : 0 Meredith Menendez PTA - 02/21/2023 18:12 EDT [facility] PT Outpatient Time Spent Wit h Pt-Texton 02-18-2023 PT Outpatient Time Spent With Pt-Text PT Outpatient Time Spent With Patient Entered On: 02/18/2023 18:12 EDT Performed On: 02/18/2023 18:11 EDT by Meredith Menendez PTA Time Spent with Patient - Outpatient PT Time In : 16:30 EST PT Time Out : 17:15 EST PT Therapeutic Exercise Time : 45 minutes ADJUNCT LATIN PROFESSOR Therapeutic Exercise Units : 3 units PT Total Timed Code Treatment Units : 3 units PT Total Timed Code Tx Minutes : 45 minutes 8 Min Rule Unit Check PT OP : 3 units PT Total Treatment Time Rehab : 45 minutes 8 Min Rule Unit Difference PT OP : 0 Meredith Menendez PTA - 02/18/2023 18:11 EDT [facility] PT Outpatient Time Spent Wit h Pt-Texton 02-11-2023 PT Outpatient Time Spent With Pt-Text PT Outpatient Time Spent With Patient Entered On: 02/11/2023 19:12 EDT Performed On: 02/11/2023 19:09 EDT by Meredith Menendez PTA Time Spent with Patient - Outpatient PT Time In : 17:45 EST PT Time Out : 18:40 EST PT Vasopneumatic Devices Time : 15 minutes ADJUNCT LATIN PROFESSOR Vasopneumatic Devices Units : 1 units PT Therapeutic Exercise Time : 15 minutes ADJUNCT LATIN PROFESSOR Therapeutic Exercise Units : 1 units PT Soft Tissue Mobility Time : 25 minutes ADJUNCT LATIN PROFESSOR Soft Tissue Mobility Units : 2 units PT Total Timed Code Treatment Units : 3 units PT Total Timed Code Tx Minutes : 40 minutes 8 Min Rule Unit Check PT OP : 3 units PT Total Untimed Code Treatment Minutes : 15 minutes PT Total Treatment Time Rehab : 55 minutes 8 Min Rule Unit Difference PT OP : 0 PMR Charges after 6pm Qty - PT : 3 Meredith Menendez PTA - 02/11/2023 19:09 EDT [facility] AMB PODIATRY Physician Progr ess Noteon 01-19-2023 AMB PODIATRY Physician Progress Note Reason for Exam Right ankle pain Service 3 views right ankle. AP, lateral, mortise Findings Artificial talus noted in the ankle joint Overall the joint spaces appear fairly well-maintained Subcortical osteochondral defect noted to the anterior medial aspect of the distal tibia No acute fractures identified Impression Artificial talus noted in the ankle joint with osteochondral defect to the anterior medial distal tibia [facility] AMB PODIATRY Physician Progress Note Chief Complaint f/u right ankle pain R/R EMG report 5/10 pain pt used a cane 3 views right ankle History of Present Illness Patient presents to clinic for follow-up of right foot and ankle pain. At her last visit an EMG/NCV was ordered and a Medrol Dosepak was prescribed. She did obtain the EMG and would like to go over the results today. She took the Medrol Dosepak as prescribed which did provide some relief although she still does have consistent pain to her right foot and ankle. She presents to clinic ambulating with the assistance of a cane today. She denies any constitutional symptoms today. Physical Exam Vitals & Measurements Systolic Blood Pressure: 124 mmHg (01/08/23 09:38:00) Diastolic Blood Pressure: 82 mmHg (01/08/23 09:38:00) Mean Arterial Pressure: 96 mmHg (01/08/23 09:38:00) Height/Length Measured: 165 cm (01/08/23 09:38:00) Weight Measured: 119 kg (01/08/23 09:38:00) Body Mass Index Measured: 43.71 kg/m2 (01/08/23 09:38:00) Ht/Wt Measurement Refused by Patient?2: No (01/08/23 09:38:00) Depression Screening Scores No Depression Screening data available for this encounter. Fall Risk Assessment No Falls Risk Assessment data available for this encounter. General: Alert and oriented x3. In no acute distress. Lower Extremity Physical Exam: Vascular: DP and PT pulses are palpable, bilateral. CFT < 3 seconds to all digits, bilateral. Edema is absent, bilateral. Neurologic: Epicritic and protopathic sensations are grossly intact, bilateral. Saph/sural/SP/DP/plantar sensation intact to light touch, bilateral. Dermatologic: Skin appears well maintained and hydrated with normal texture, turgor, and temperature. No open lesions, bilateral. Signs of any soft tissue infection or cellulitis: absent. Several well-healed scars are noted to the right lower extremity Musculoskeletal: EHL/FHL/GS/TA gross motor intact with 5/5 muscle strength, bilateral. Tenderness to palpation: Right ankle diffusely. Laterally, anteriorly, anterior medially Pain to palpation of the distal anterior tibia Biomechanical: Ankle ROM: Decreased with the knee both extended and flexed, RIGHT Subtalar joint ROM: Decreased range of motion, RIGHT. CT scan right ankle: 1. Total talus implant noted with artifact making the images somewhat difficult 2. There is a cyst on the anterior medial distal tibia although it is difficult to determine if this is intra-articular due to artifact EMG/NCV: 1. Electrophysiologic evidence of lower segment lumbar radiculopathy L4-L5 Assessment/Plan This Visit Diagnosis 1. Osteochondral defect of distal tibia M95.8 Ordered: AMB Office/Outpt Est Pt Mod MDM / 30-39 min [id number], 57 Decision for surgery 01/08/2023 10:01:00 EST, Osteochondral defect of distal tibia / Avascular necrosis of the talus / Right ankle pain / Acute lumbar radiculopathy 2. Avascular necrosis of the talus M87.076 Ordered: AMB Office/Outpt Est Pt Mod MDM / 30-39 min [id number], 57 Decision for surgery 01/08/2023 10:01:00 EST, Osteochondral defect of distal tibia / Avascular necrosis of the talus / Right ankle pain / Acute lumbar radiculopathy 3. Right ankle pain M25.571 Ordered: AMB Office/Outpt Est Pt Mod MDM / 30-39 min [id number], 57 Decision for surgery 01/08/2023 10:01:00 EST, Osteochondral defect of distal tibia / Avascular necrosis of the talus / Right ankle pain / Acute lumbar radiculopathy 4. Acute lumbar radiculopathy M54.16 Ordered: AMB Office/Outpt Est Pt Mod MDM / 30-39 min [id number], 57 Decision for surgery 01/08/2023 10:01:00 EST, Osteochondral defect of distal tibia / Avascular necrosis of the talus / Right ankle pain / Acute lumbar radiculopathy Patient examined and evaluated. Diagnosis and treatment options discussed in detail with patient. EMG/NCV reviewed with patient which does reveal lumbar radiculopathy MRI lumbar spine ordered Referral to Dr. Wellington Jones of pain management Again we discussed the complexity of her right ankle pain. With acute lumbar radiculopathy this becomes even more complex as to the potential sources of her ankle pain I do believe she has pain in her ankle due to ankle pathology. However she has back pathology that is also likely contributing to her ankle pain. As such surgical intervention of the ankle may not provide the relief that she is looking for as the foot pain may be due to lumbar radiculopathy I am willing to perform an ankle joint arthroscopy with no guarantees of pain relief The patient and her do need to think this over however we will likely move forward with surgery Again we discussed this is a very difficult situation and her expectations do need to be adjusted. RTC: Postoperatively Patient and/or family was consulted regarding the goals, risks, and benefits of surgical intervention and the most common complications including delayed healing, mal position, infection, numbness, swelling, DVT, and residual pain and possible need for revisional (more content not included)... [facility] HEP B SURFACE ANTIGEN SCREEN on 01-11-2023 HBsAg Screen Negative Normal Negative [facility] Comment on above: Performed By: #### H BSANS ####[facility] [address] [place], [place] [address]SfDr. Raimundo Rayo HEPATITIS C ANTIBODYon 01-11 Hep C Virus Ab Non-Reactive Normal Non Reactive [facility] Comment on above: Result Comment: HCV antibody alone does not differentiate between previously resolved infection and active infection. Equivocal and Reactive HCV antibody results should be followed up with an HCV RNA test to support the diagnosis of active HCV infection. Performed By: #### H CV #### [facility] [address] [place], [place] [address] Dr. Raimundo Rayo HIV 1 AND 2 WITH REFLEXon HIV Screen 4th Generation wRfx Non-Reactive Normal Non Reactive [facility] Comment on above: Result Comment: HIV Negative HIV-1/HIV-2 antibodies and HIV-1 p24 antigen were NOT detected. There is no laboratory evidence of HIV infection. Performed By: #### H IV12 #### [facility] [address] [place], [place] [address] Dr. Raimundo Rayo RPR QUANTon 01-11-2023 Rapid Plasma Reagin, Quant Non-Reactive Normal NonRea<1:1 [facility] Comment on above: Result Comment: Plea Note: This test does not meet current guidelines for screening and diagnosis of syphilis. This test is intended for following treatment response in patients being treated for syphilis infection. To screen for syphilis infection, a reflex cascade that includes both RPR and a treponema-specific assay should be utilized, such as Treponema pallidum (Syphilis) Screening [place] ([id number]) or Rapid Plasma Reagin (RPR) Test With Reflex to Quantitative RPR and Confirmatory Treponema pallidum Antibodies ([id number]). Performed By: #### R PRQ #### [facility] Laboratory [address] [place] [address] Dr. Raimundo Rayo HIV 1/2 RAPID (EXPOSURE ONLY )on 01-10-2023 HIV AB Non-Reactive Normal NON-REACTIVE [facility] Comment on above: Performed By: #### R PDHIV #### [facility] Laboratory [address] [place] [address] Dr. Raimundo Rayo HIV AG Non-Reactive Normal NON-REACTIVE [facility] Comment on above: Performed By: #### R PDHIV #### [facility] Laboratory [address] [place] [address] Dr. Raimundo Rayo INTERNAL CONTROLS Within Normal Limits Normal Wi thin Normal Limits [facility] Comment on above: Performed By: #### R PDHIV #### [facility] Laboratory [address] [place] [address] Dr. Raimundo Rayo RAPID HIV INFO SEE BELOW Normal [facility] Comment on above: Result Comment: This test is used for the initial screening of the exposure source. Confirmation of all reactive results will be obtained through reference lab testing. Performed By: #### R PDHIV #### [facility] Laboratory [address] [place] [address] Dr. Raimundo Rayo POINT OF CARE GLUCOSEon Glucose [Mass/Vol] 86 mg/dL Normal 74-106 [facility] Comment on above: Performed By: #### P OCGLUC #### [facility] Laboratory [address] [place] [address] Dr. Raimundo Rayo Glucose [Mass/Vol] 79 mg/dL Normal 74-106 [facility] Comment on above: Performed By: #### P OCGLUC ####[facility] [id number] [place] [address]Dr. Raimundo Rayo PREG HCG QUALon 01-10-2023 , QUAL Negative Normal NEGATIVE [facility] Comment on above: Performed By: #### P REG #### [facility] Laboratory [address] [place] [address] Dr. Raimundo Rayo XR ANKLE RT MIN 3 VIEWSon XR ANKLE RT MIN 3 VIEWS EXAM: XR ANKLE RT MIN 3 VIEWS HISTORY: Pain COMPARISON: 11/14/2022. TECHNIQUE: 3 views of the right ankle were obtained. Limitations: The exam is suboptimal due to the presence of overlying splint. FINDINGS/impression: Prosthetic replacement of the talus is redemonstrated. Prominent plantar calcaneal spur is seen. Extensive soft tissue swelling is seen. Evidence of osteoarthritis is seen in the midfoot and the forefoot. An acute fracture cannot be evaluated due to the presence of osteopenia and overlying splint. Electronically authenticated by: CALEB KERN Date: 2023-01-10 16:24 Normal [facility] XR FOOT RT 2Von 01-10-2023 XR FOOT RT 2V EXAM: XR FOOT RT 2V. HISTORY: Pain. COMPARISON: 11/14/2022. TECHNIQUE: Intraoperative fluoroscopic view of the right ankle was obtained. Total fluoroscopy time: 32.1 seconds. FINDINGS/IMPRESSION: Intraoperative fluoroscopic utilization for right ankle surgery. Please refer to the operative report for detailed discussion. Electronically authenticated by: CALEB KERN Date: 2023-01-10 17:11 Normal [facility] Ambulatory Clinical Summaryo n 01-08-2023 Ambulatory Clinical Summary SERA WOO :1980 Visit Date:01/08/2023 Ambulatory Visit Instructions Your Care Team Attending Physician - EVANGELINA AUGUST, KOREY Primary Care Physician - HETAL ALONSO MD Procedures Performed OPEN REDUCTION OF A DISLOCATED TALUS (04/12/2020) ACCESSORY NAVICULAR BONE REMOVAL Ankle Surgery Cholecystectomy (procedure) Cholecystectomy; Discharge Vitals Blood Pressure 124/82 Height 165 cm Weight 119 kg BMI 43.71 Systolic Blood Pressure: 124 mmHg (01/08/23 09:38:00) Diastolic Blood Pressure: 82 mmHg (01/08/23 09:38:00) Mean Arterial Pressure: 96 mmHg (01/08/23 09:38:00) Height/Length Measured: 165 cm (01/08/23 09:38:00) Weight Measured: 119 kg (01/08/23 09:38:00) Body Mass Index Measured: 43.71 kg/m2 (01/08/23 09:38:00) Ht/Wt Measurement Refused by Patient?2: No (01/08/23 09:38:00) What to do next Scheduled Follow-Up Appointments No results Medications What How Much When Why Instructions Unchanged acetaminophen-hydrocodone (acetaminophen-HYDROcodone 325 mg-5 mg oral tablet) 2 Tabs Oral EVERY SIX HOURS as needed for Moderate to Severe Pain Closed dislocation of right talus Unchanged amlodipine-benazepril (amlodipine-benazepril 5 mg-20 mg oral capsule) 90 EA, TAKE 1 CAPSULE BY MOUTH DAILY Unchanged apixaban (Eliquis 2.5 mg oral tablet) 1 Tabs Oral TWICE A DAY Duration: 30 Days Unchanged DULoxetine (DULoxetine 20 mg oral delayed release capsule) 90 EA, TAKE 1 CAPSULE BY MOUTH DAILY Unchanged ethinyl estradiol-levonorgestrel (Ashlyna oral tablet) 1 Tabs Oral AT BEDTIME Unchanged methylPREDNISolone (Medrol 4 mg oral tablet) 1 Packets Oral DAILY Duration: 6 Days as directed on package labeling Unchanged ondansetron (Zofran 8 mg oral tablet) 1 Tabs Oral EVERY EIGHT HOURS as needed for as needed for nausea/vomiting Allergies Percocet (Hallucination) Zithromax (HIVES) Problems Ongoing - Any problem that you are currently receiving treatment for. Acute pharyngitis Adjustment disorder with mixed anxiety and depressed mood Avascular necrosis of the talus Backache Benign essential hypertension Blood in urine Body mass index 40+ - severely obese Candidal intertrigo Congestion of nasal sinus History of ankle surgery Lymphadenopathy Historical - Any problem that you are no longer receiving treatment for. ADENOMYOSIS Common Emergency Awareness Tips IS IT A STROKE? Act FAST and Check for these signs: FACE Does the face look uneven? ARM Does one arm drift down? SPEECH Does their speech sound strange? TIME Call at any sign of stroke Heart Attack Signs Chest discomfort: Most heart attacks involve discomfort in the center of the chest and lasts more than a few minutes, or goes away and comes back. It can feel like uncomfortable pressure, squeezing, fullness or pain. Discomfort in upper body: Symptoms can include pain or discomfort in one or both arms, back, neck, jaw or stomach. Shortness of breath: With or without discomfort. Other signs: Breaking out in a cold sweat, nausea, or lightheaded. Remember, MINUTES DO MATTER. If you experience any of these heart attack warning signs, call [id number] to get immediate medical attention! Normal [facility] Comprehensive Intake - Texto n 01-08-2023 Comprehensive Intake - Text Comprehensive Intake Entered On: 01/08/2023 9:40 EST Performed On: 01/08/2023 9:38 EST by Katiana Case MA Summary Chief Complaint : f/u right ankle pain R/R EMG report 03/13 pain pt used a cane 3 views right ankle Bladder Control Issues? : No Urine Leakage? : No Presence or absence of urinary incontinence assessed : Yes CPT-II Medication list doc'd in medical record : Yes Influenza immunization administered or previously received : Yes Pneumococcal vaccine administered or previously received : No Katiana Case MA - 01/08/2023 9:38 EST Measurements Ht/Wt Measurement Refused by Patient? : No Weight Measured : 119 kg(Converted to: 262 lb 6 oz, 262.350 lb) Height/Length Measured : 165 cm(Converted to: 5 ft 5 in, 64.96 in) Body Mass Index Measured : 43.71 kg/m2 Body Mass Index documented : Yes Katiana Case MA - 01/08/2023 9:38 EST Vitals Require BP : Yes Systolic Blood Pressure : 124 mmHg Diastolic Blood Pressure : 82 mmHg Mean Arterial Pressure : 96 mmHg Last Systolic BP : less than 130 mmHg Last Diastolic BP : 80-89 mmHg Pain Present : No actual or suspected pain Pain : 5 Pain severity quantified : No pain present Katiana Case MA - 01/08/2023 9:38 EST Infection Screening - Ambulatory Exposure AND/OR close contact with a person under investigation or laboratory-confirmed COVID-19 individual within 14 days of symptom onset AND/OR any of the following: : No Do you live/work in a high risk situation (congregated living, hemodialysis, infusion clinic, correction, assisted living, long term, homeless care home, etc.)? : No Katiana Case MA - 01/08/2023 9:38 EST Depression Screening Is patient currently : None of the Below Feeling Down, Depressed, Hopeless : Not at all Little Interest - Pleasure in Activities : Not at all Initial Depression Screen Score : 0 Depression Screening Score 0 : No Manpreet SHERMANKatiana - 01/08/2023 9:38 EST Falls Risk Assessment Is the patient ambulatory (mobile) : Yes Have you had 2 or more falls in the past year : No Have you had a fall within the past year that has caused an injury : No Patient screen for fall risk : no falls in last year OR 1 fall with no injury in last year Manpreet SHERMANKatiana - 01/08/2023 9:38 EST Normal [facility] CBC AUTO DIFFon 01-07-2023 BASO # 0.0 103/ul Normal 0.0-0.1 [facility] Comment on above: Performed By: #### C BC #### [facility] Laboratory [address] [place] [address] Dr. Raimundo Rayo Basophils/100 WBC (Bld) 0.6 % Normal 0.2-2.0 [facility] Comment on above: Performed By: #### C BC #### [facility] Laboratory [address] [place] [address] Dr. Raimundo Rayo EO # 0.1 103/ul Normal 0.0-0.7 [facility] Comment on above: Performed By: #### C BC #### [facility] Laboratory [address] [place] [address] Dr. Raimundo Rayo Eosinophils/100 WBC (Bld) 1.1 % Normal 0.9-7.0 [facility] Comment on above: Performed By: #### C BC #### [facility] Laboratory [address] [place] [address] Dr. Raimundo Rayo Erythrocyte distribution width (RBC) [Ratio] 13.6 % Normal 11.0-15.0 [facility] Comment on above: Performed By: #### C BC #### [facility] Laboratory [address] [place] [address] Dr. Raimundo Rayo Hematocrit (Bld) [Volume fraction] 40.0 % Normal 36.0-48.0 [facility] Comment on above: Performed By: #### C BC #### [facility] Laboratory [address] [place] [address] Dr. Raimundo Rayo Hemoglobin (Bld) [Mass/Vol] 13.0 g/dL Normal 12.0-16.0 [facility] Comment on above: Performed By: #### C BC #### [facility] Laboratory [address] [place] [address] Dr. Raimundo Rayo IG # 0.03 10e3/ul Normal 0.00-0.03 [facility] Comment on above: Performed By: #### C BC #### [facility] Laboratory [address] [place] [address] Dr. Raimundo Rayo IG % 0.4 % Normal 0.0-0.5 [facility] Comment on above: Performed By: #### C BC #### [facility] Laboratory [address] [place] [address] Dr. Raimundo Rayo LYMPH # 1.7 103/ul Normal 1.2-3.8 [facility] Comment on above: Performed By: #### C BC #### [facility] Laboratory [address] [place] [address] Dr. Raimnudo Rayo Lymphocytes/100 WBC (Bld) 23.8 % Normal 20.5-60.0 [facility] Comment on above: Performed By: #### C BC #### [facility] Laboratory [address] [place] [address] Dr. Raimundo Rayo MANUAL DIFF REQ NO Normal [facility] Comment on above: Performed By: #### C BC #### [facility] Laboratory [address] [place] [address] Dr. Raimundo Rayo MCH (RBC) [Entitic mass] 28.4 pg Normal 26.7-34.0 [facility] Comment on above: Performed By: #### C BC #### [facility] Laboratory [address] [place] [address] Dr. Raimundo Rayo MCHC (RBC) [Mass/Vol] 32.5 g/dL Normal 29.9-35.2 [facility] Comment on above: Performed By: #### C BC #### [facility] Laboratory [address] [place] [address] Dr. Raimundo Rayo MCV (RBC) [Entitic vol] 87.5 fL Normal 81.0-99.0 [facility] Comment on above: Performed By: #### C BC #### [facility] Laboratory [address] [place] [address] [address] Raimundo Rayo MONO # 0.6 103/ul Normal 0.3-0.8 [facility] Comment on above: Performed By: #### C BC #### [facility] Laboratory [address] [place] [address] Dr. Raimundo Rayo Monocytes/100 WBC (Bld) 8.0 % Normal 1.7-12.0 [facility] Comment on above: Performed By: #### C BC #### [facility] Laboratory [address] [place] [address] Dr. Raimundo Rayo NEUT # 4.8 103/ul Normal 1.4-6.5 [facility] Comment on above: Performed By: #### C BC #### [facility] Laboratory [address] [place] [address] Dr. Raimundo Rayo Neutrophils/100 WBC (Bld) 66.1 % Normal 43.0-75.0 [facility] Comment on above: Performed By: #### C BC #### [facility] Laboratory [address] [place] [address] Dr. Raimundo Rayo Platelet mean volume (Bld) [Entitic vol] 8.5 fL Critically low 9.5-13.5 [facility] Comment on above: Performed By: #### C BC #### [facility] Laboratory [address] [place] [address] Dr. Raimundo Rayo PLT 336 103/ul Normal 150-450 [facility] Comment on above: Performed By: #### C BC #### [facility] Laboratory [address] [place] [address] Dr. Raimundo Rayo RBC 4.57 106/ul Normal 4.20-5.40 [facility] Comment on above: Performed By: #### C BC #### [facility] Laboratory [address] [place] [address] Dr. Raimundo Rayo WBC 7.2 103/ul Normal 4.0-11.0 [facility] Comment on above: Performed By: #### C BC #### [facility] Laboratory [address] [address] [address] Raimundo Rayo PROF CHEM 8 (BAS METB)on Anion gap [Moles/Vol] 11.3 mmol/L Normal [facility] Comment on above: Performed By: #### B MP ####[facility] [id number] [place] [address]Dr. Raimundo Rayo Calcium [Mass/Vol] 9.1 mg/dL Normal 8.5-10.1 [facility] Comment on above: Performed By: #### B MP ####[facility] [address] [place] [address]Dr. Raimundo Rayo Chloride [Moles/Vol] 105 mmol/L Normal 98-107 [facility] Comment on above: Performed By: #### B MP ####[facility] [address] [place] [address]Dr. Raimundo Rayo CO2 [Moles/Vol] 27.0 mmol/L Normal 21.0-32.0 [facility] Comment on above: Performed By: #### B MP ####[facility] [address] [place] [address]Dr. Raimundo Rayo Creatinine [Mass/Vol] 0.53 mg/dL Critically low 0.55-1.02 [facility] Comment on above: Performed By: #### B MP ####[facility] [address] [place] [address]Dr. Raimundo Rayo EGFR-AF CYMRAES >60 Normal >=60 [facility] Comment on above: Performed By: #### B MP ####[facility] [address] [place] [address]Dr. Raimundo Rayo EGFR-NON AF CYMRAES >60 Normal >=60 [facility] Comment on above: Performed By: #### B MP ####[facility] [address] [place] [address]Dr. Raimundo Rayo Glucose [Mass/Vol] 104 mg/dL Normal 74-106 [facility] Comment on above: Performed By: #### B MP ####[facility] [address] [place], [place] [address]Dr. Raimundo Rayo Potassium [Moles/Vol] 4.3 mmol/L Normal 3.5-5.1 [facility] Comment on above: Performed By: #### B MP ####[facility] [address] [place], [place] [address]Du. Raimundo Rayo Sodium [Moles/Vol] 139 mmol/L Normal 136-145 [facility] Comment on above: Performed By: #### B MP ####[facility] [address] [place] [id number]. Raimundo Rayo Urea nitrogen [Mass/Vol] 10.0 mg/dL Normal 7.0-18.0 [facility] Comment on above: Performed By: #### B MP ####[facility] [address] [place] [address]Dr. Raimundo Rayo Urea nitrogen/Creatini ne [Mass ratio] 18.9 mg/mg Normal [facility] Comment on above: Performed By: #### B MP ####[facility] [address] [place] [address]Dr. Raimundo Rayo PT Outpatient Time Spent Wit h Pt-Texton 12-31-2022 PT Outpatient Time Spent With Pt-Text PT Outpatient Time Spent With Patient Entered On: 12/21/2022 9:14 EST Performed On: 12/21/2022 9:14 EST by Meredith Menendez PTA Time Spent with Patient - Outpatient PT Time In : 08:00 EST PT Time Out : 08:45 EST Meredith Menendez PTA - 12/21/2022 9:14 EST PT Therapeutic Exercise Time : 45 minutes ADJUNCT LATIN PROFESSOR Therapeutic Exercise Units : 3 units PT Total Timed Code Treatment Units : 3 units PT Total Timed Code Tx Minutes : 45 minutes 8 Min Rule Unit Check PT OP : 3 units PT Total Treatment Time Rehab : 45 minutes Ronald OMALLEY CCC/MANAGER LINE, Carolyn - 12/31/2022 10:23 EST 8 Min Rule Unit Difference PT OP : 0 Meredith Menendez PTA - 12/21/2022 9:14 EST Normal [facility] AMB PODIATRY Physician Progr ess Noteon 12-30-2022 AMB PODIATRY Physician Progress Note Chief Complaint Patient presents to discuss her right talus surgery DOS 12-16-2020 (at another facility) She has developed a cyst and would like to discuss treament options She has brought Cat scan rresults History of Present Illness Patient presents to clinic as an established patient with pain to her RIGHT foot and ankle. Approximately 3 years ago she suffered a significant right ankle injury that resulted in avascular necrosis of her talus. Approximately 1 year ago she had a total talus implanted into her right ankle. Over the course of the year pain has slowly had an and a cyst has developed on her tibia. She brought several discs with her with various imaging modalities including x-rays and CT scans. The physician who performed her total talus implant has offered her an ankle fusion. Prior to her injury she was a very active individual and would like to have some of that lifestyle back. She has a family and wants to be able to participate in the family events. She presents to clinic ambulating with the assistance of a cane today. She denies any constitutional symptoms today. Physical Exam Vitals & Measurements Systolic Blood Pressure: 134 mmHg (12/19/22 13:50:00) Diastolic Blood Pressure: 70 mmHg (12/19/22 13:50:00) Mean Arterial Pressure: 91 mmHg (12/19/22 13:50:00) Height/Length Measured: 165 cm (12/19/22 13:50:00) Weight Measured: 119 kg (12/19/22 13:50:00) Body Mass Index Measured: 43.71 kg/m2 (12/19/22 13:50:00) Weight Measured - lbs2: 262 lb (12/19/22 13:50:00) Height/Length Measured - in2: 65 in (12/19/22 13:50:00) Body Mass Index Measured English2: 43.59 kg/m2 (12/19/22 13:50:00) BSA: 2.33 m2 (12/19/22 13:50:00) Ht/Wt Measurement Refused by Patient?2: No (12/19/22 13:50:00) Depression Screening Scores Initial Depression Screen Score: 0 (12/19/22 13:50:00) Fall Risk Assessment Is the patient ambulatory (mobile): Yes (12/19/22 13:50:00) Have you had a fall within the past: No (12/19/22 13:50:00) Have you had 2 or more falls in the past: No (12/19/22 13:50:00) General: Alert and oriented x3. In no acute distress. Lower Extremity Physical Exam: Vascular: DP and PT pulses are palpable, bilateral. CFT < 3 seconds to all digits, bilateral. Edema is absent, bilateral. Neurologic: Epicritic and protopathic sensations are grossly intact, bilateral. Saph/sural/SP/DP/plantar sensation intact to light touch, bilateral. Dermatologic: Skin appears well maintained and hydrated with normal texture, turgor, and temperature. No open lesions, bilateral. Signs of any soft tissue infection or cellulitis: absent. Several well-healed scars are noted to the right lower extremity Musculoskeletal: EHL/FHL/GS/TA gross motor intact with 5/5 muscle strength, bilateral. Tenderness to palpation: Right ankle diffusely. Laterally, anteriorly, anterior medially Biomechanical: Ankle ROM: Decreased with the knee both extended and flexed, RIGHT Subtalar joint ROM: Decreased range of motion, RIGHT. CT scan right ankle: 1. Total talus implant noted with artifact making the images somewhat difficult 2. There is a cyst on the anterior medial distal tibia although it is difficult to determine if this is intra-articular due to artifact Assessment/Plan This Visit Diagnosis 1. Osteochondral defect of distal tibia M95.8 Ordered: AMB Office/Outpt Est Pt Mod [facility] / 30-39 min [id number], 12/19/2022 08:19:00 EST, Osteochondral defect of distal tibia / Avascular necrosis of the talus / Right ankle pain / Acute lumbar radiculopathy 2. Avascular necrosis of the talus M87.076 Ordered: AMB Office/Outpt Est Pt Mod [facility] / 30-39 min [id number], 12/19/2022 08:19:00 EST, Osteochondral defect of distal tibia / Avascular necrosis of the talus / Right ankle pain / Acute lumbar radiculopathy 3. Right ankle pain M25.571 Ordered: AMB Office/Outpt Est Pt Mod [facility] / 30-39 min [id number], 12/19/2022 08:19:00 EST, Osteochondral defect of distal tibia / Avascular necrosis of the talus / Right ankle pain / Acute lumbar radiculopathy 4. Acute lumbar radiculopathy M54.16 Ordered: AMB Office/Outpt Est Pt Mod [facility] / 30-39 min [id number], 12/19/2022 08:19:00 EST, Osteochondral defect of distal tibia / Avascular necrosis of the talus / Right ankle pain / Acute lumbar radiculopathy Patient examined and evaluated. Diagnosis and treatment options discussed in detail with patient. CT scan from outside facility reviewed and all findings discussed with patient She relates a history of back pain as well as shooting pain in her ankle. As such, EMG/NCV ordered Medrol Dosepak prescribed We did discuss several surgical treatment options. At this time we will continue conservative care as we determine if there is any involvement We did discuss at length that this is a very difficult situation and her expectations do need to be adjusted. RTC: After EMG/NCV Problem List/Past Medical History Ongoing Acute pharyngitis Adjustment disorder with mixed anxiety an (more content not included)... Normal [facility] Ambulatory Clinical Summaryo n 12-19-2022 Ambulatory Clinical Summary SERA WOO :1980 Visit Date:12/19/2022 Ambulatory Visit Instructions Your Care Team Attending Physician - EVANGELINA AUGUST, KOREY Primary Care Physician - HETAL ALONSO MD Procedures Performed OPEN REDUCTION OF A DISLOCATED TALUS (04/12/2020) ACCESSORY NAVICULAR BONE REMOVAL Ankle Surgery Cholecystectomy (procedure) Cholecystectomy; Discharge Vitals Blood Pressure 134/70 Height 165 cm Weight 119 kg BMI 43.71 Systolic Blood Pressure: 134 mmHg (12/19/22 13:50:00) Diastolic Blood Pressure: 70 mmHg (12/19/22 13:50:00) Mean Arterial Pressure: 91 mmHg (12/19/22 13:50:00) Height/Length Measured: 165 cm (12/19/22 13:50:00) Weight Measured: 119 kg (12/19/22 13:50:00) Body Mass Index Measured: 43.71 kg/m2 (12/19/22 13:50:00) Weight Measured - lbs2: 262 lb (12/19/22 13:50:00) Height/Length Measured - in2: 65 in (12/19/22 13:50:00) Body Mass Index Measured English2: 43.59 kg/m2 (12/19/22 13:50:00) BSA: 2.33 m2 (12/19/22 13:50:00) Ht/Wt Measurement Refused by Patient?2: No (12/19/22 13:50:00) What to do next Scheduled Follow-Up Appointments Appointment Type Reason for visit Day With Date Time Where City&State PMR Ortho F/U - (45) Saturday Meredith D (ADJUNCT LATIN PROFESSOR) (1) December 21, 2022 08:00 am EDT LW PT [address] [facility] [address] PMR Ortho F/U - (45) Saturday Meredith D (ADJUNCT LATIN PROFESSOR) (1) December 25, 2022 08:45 am EDT LW PT [address] [facility] [address] PMR Ortho F/U - (45) Saturday Mirza D (PT) (2) December 28, 2022 09:00 am EDT LW PT [address] [facility] [address] PMR Ortho F/U - (45) Saturday Meredith D (ADJUNCT LATIN PROFESSOR) (1) January 01, 2023 09:00 am EDT LW PT [address] [place] [address] PMR Ortho F/U - (45) Saturday Mirza D (PT) (2) January 04, 2023 09:00 am EDT LW PT [address] [facility] [address] PMR Ortho F/U - (45) Saturday Mirza D (PT) (2) January 09, 2023 09:00 am EDT LW PT [address] [facility] [address] Medications What How Much When Why Instructions New amlodipine-benazepril (amlodipine-benazepril 5 mg-20 mg oral capsule) 90 EA, TAKE 1 CAPSULE BY MOUTH DAILY New DULoxetine (DULoxetine 20 mg oral delayed release capsule) 90 EA, TAKE 1 CAPSULE BY MOUTH DAILY Unchanged acetaminophen-hydrocodone (acetaminophen-HYDROcodone 325 mg-5 mg oral tablet) 2 Tabs Oral EVERY SIX HOURS as needed for Moderate to Severe Pain Closed dislocation of right talus Unchanged apixaban (Eliquis 2.5 mg oral tablet) 1 Tabs Oral TWICE A DAY Duration: 30 Days Unchanged ethinyl estradiol-levonorgestrel (Ashlyna oral tablet) 1 Tabs Oral AT BEDTIME Unchanged ondansetron (Zofran 8 mg oral tablet) 1 Tabs Oral EVERY EIGHT HOURS as needed for as needed for nausea/vomiting Allergies Percocet (Hallucination) Zithromax (HIVES) Problems Ongoing - Any problem that you are currently receiving treatment for. Acute pharyngitis Adjustment disorder with mixed anxiety and depressed mood Avascular necrosis of the talus Backache Benign essential hypertension Blood in urine Body mass index 40+ - severely obese Candidal intertrigo Congestion of nasal sinus History of ankle surgery Lymphadenopathy Historical - Any problem that you are no longer receiving treatment for. ADENOMYOSIS Common Emergency Awareness Tips IS IT A STROKE? Act FAST and Check for these signs: FACE Does the face look uneven? ARM Does one arm drift down? SPEECH Does their speech sound strange? TIME Call at any sign of stroke Heart Attack Signs Chest discomfort: Most heart attacks involve discomfort in the center of the chest and lasts more than a few minutes, or goes away and comes back. It can feel like uncomfortable pressure, squeezing, fullness or pain. Discomfort in upper body: Symptoms can include pain or discomfort in one or both arms, back, neck, jaw or stomach. Shortness of breath: With or without discomfort. Other signs: Breaking out in a cold sweat, nausea, or lightheaded. Remember, MINUTES DO MATTER. If you experience any of these heart attack warning signs, call to get immediate medical attention! Normal [facility] Comprehensive Intake - Texto n 12-19-2022 Comprehensive Intake - Text Comprehensive Intake Entered On: 12/19/2022 13:53 EST Performed On: 12/19/2022 13:50 EST by Anastacia Lowe LPN Summary Chief Complaint : Patient presents to discuss her right talus surgery DOS 12-16-2020 (at another facility) She has developed a cyst and would like to discuss treament options She has brought Cat scan rresults Bladder Control Issues? : No Urine Leakage? : No Presence or absence of urinary incontinence assessed : Yes CPT-II Medication list doc'd in medical record : Yes Influenza immunization administered or previously received : No Pneumococcal vaccine administered or previously received : No Anastacia Lowe LPN - 12/19/2022 13:50 EST Measurements Ht/Wt Measurement Refused by Patient? : No Weight Measured : 119 kg(Converted to: 262 lb 6 oz, 262.350 lb) Height/Length Measured : 165 cm(Converted to: 5 ft 5 in, 64.96 in) Body Mass Index Measured : 43.71 kg/m2 Body Mass Index documented : Yes Weight Measured - lbs : 262 lb(Converted to: 262 lb 0 oz, 119 kg) Height/Length Measured - in : 65 in(Converted to: 5 ft 5 in, 165 cm) Body Mass Index Measured Fijian : 43.59 kg/m2 BSA Fijian : 2.33 m2 Anastacia Lowe LPN - 12/19/2022 13:50 EST Vitals Require BP : Yes Systolic Blood Pressure : 134 mmHg Diastolic Blood Pressure : 70 mmHg Mean Arterial Pressure : 91 mmHg Last Systolic BP : 130-139 mmHg Last Diastolic BP : less than 80 mmHg Pain Present : No actual or suspected pain Pain : 0 Pain severity quantified : No pain present Anastacia Lowe LPN 12/19/2022 13:50 EST Infection Screening - Ambulatory Exposure AND/OR close contact with a person under investigation or laboratory-confirmed COVID-19 individual within 14 days of symptom onset AND/OR any of the following: : No Do you live/work in a high risk situation (congregated living, hemodialysis, infusion clinic, correction, assisted living, long term, homeless care home, etc.)? : No Anastacia Lowe LPN - 12/19/2022 13:50 EST Depression Screening Is patient currently : None of the Below Feeling Down, Depressed, Hopeless : Not at all Little Interest - Pleasure in Activities : Not at all Initial Depression Screen Score : 0 Depression Screening Score 0 : No Anastacia Lowe LPN 12/19/2022 13:50 EST Falls Risk Assessment Is the patient ambulatory (mobile) : Yes Have you had 2 or more falls in the past year : No Have you had a fall within the past year that has caused an injury : No Patient screen for fall risk : no falls in last year OR 1 fall with no injury in last year Anastacia Lowe LPN 12/19/2022 13:50 EST Normal [facility] PT Outpatient Time Spent Wit h Pt-Texton 12-07-2022 PT Outpatient Time Spent With Pt-Text PT Outpatient Time Spent With Patient Entered On: 12/07/2022 14:35 EST Performed On: 12/07/2022 14:33 EST by Meredith Menendez PTA Time Spent with Patient - Outpatient PT Time In : 13:30 EST PT Time Out : 14:15 EST PT Therapeutic Exercise Time : 45 minutes ADJUNCT LATIN PROFESSOR Therapeutic Exercise Units : 3 units PT Total Timed Code Treatment Units : 3 units PT Total Timed Code Tx Minutes : 45 minutes 8 Min Rule Unit Check PT OP : 3 units PT Total Treatment Time Rehab : 45 minutes 8 Min Rule Unit Difference PT OP : 0 PMR Chart Review : Yes Meredith Menendez PTA - 12/07/2022 14:33 EST Normal [facility] PT Outpatient Time Spent Wit h Pt-Texton 11-30-2022 PT Outpatient Time Spent With Pt-Text PT Outpatient Time Spent With Patient Entered On: 11/30/2022 17:35 EST Performed On: 11/30/2022 17:34 EST by Meredith Menendez PTA Time Spent with Patient - Outpatient PT Time In : 16:45 EST PT Time Out : 17:30 EST PT Therapeutic Exercise Time : 35 minutes ADJUNCT LATIN PROFESSOR Therapeutic Exercise Units : 2 units PT Soft Tissue Mobility Time : 10 minutes ADJUNCT LATIN PROFESSOR Soft Tissue Mobility Units : 1 units PT Total Timed Code Treatment Units : 3 units PT Total Timed Code Tx Minutes : 45 minutes 8 Min Rule Unit Check PT OP : 3 units PT Total Treatment Time Rehab : 45 minutes 8 Min Rule Unit Difference PT OP : 0 Meredith Menendez PTA - 11/30/2022 17:34 EST Normal [facility] PT Outpatient Time Spent Wit h Pt-Texton 11-27-2022 PT Outpatient Time Spent With Pt-Text PT Outpatient Time Spent With Patient Entered On: 11/27/2022 13:16 EST Performed On: 11/23/2022 9:30 EST by Meredith Menendez PTA Time Spent with Patient - Outpatient PT Time In : 09:30 EST PT Time Out : 10:15 EST PT Therapeutic Exercise Time : 45 minutes ADJUNCT LATIN PROFESSOR Therapeutic Exercise Units : 3 units PT Total Timed Code Treatment Units : 3 units PT Total Timed Code Tx Minutes : 45 minutes 8 Min Rule Unit Check PT OP : 3 units PT Total Treatment Time Rehab : 45 minutes 8 Min Rule Unit Difference PT OP : 0 Meredith Menendez PTA - 11/27/2022 13:15 EST Normal [facility] CT ANKLE RT WO CONon [address] ANKLE RT WO CON EXAMINATION: CT ANKLE RT WO CON HISTORY: Idiopathic aseptic necrosis of bone COMPARISON: 01/04/2022, 11/14/2022 TECHNIQUE: Multi-planar CT images were created without IV contrast. Dose reduction techniques were achieved by using automated exposure control and/or adjustment of mA and/or kV according to patient size and/or use of iterative reconstruction technique. FINDINGS: BONES: Total talus arthroplasty. No acute fracture or dislocation. No mechanical failure. Moderate enthesopathic spurring of the calcaneus at the Achilles and plantar insertions. Mild degenerative changes with joint space narrowing in the midfoot. Moderate enthesopathic spurring of the patella at the quadriceps insertion. SOFT TISSUES: Negative. No visible soft tissue swelling. EFFUSION: None visible. OTHER: Negative. IMPRESSION: Stable talus arthroplasty with underlying degenerative changes No acute abnormality Electronically authenticated by: WELLINGTON NIX Date: 2022-11-21 16:19 Normal [facility] PT Outpatient Time Spent Wit h Pt-Texton 11-09-2022 PT Outpatient Time Spent With Pt-Text PT Outpatient Time Spent With Patient Entered On: 11/09/2022 17:32 EST Performed On: 11/09/2022 10:30 EST by Meredith Menendez PTA Time Spent with Patient - Outpatient PT Time In : 09:45 EST PT Time Out : 10:30 EST PT Therapeutic Exercise Time : 15 minutes ADJUNCT LATIN PROFESSOR Therapeutic Exercise Units : 1 units PT Soft Tissue Mobility Time : 22 minutes ADJUNCT LATIN PROFESSOR Soft Tissue Mobility Units : 1 units PT Iontophoresis Time : 8 minutes ADJUNCT LATIN PROFESSOR Iontophoresis Units : 1 units PT Total Timed Code Treatment Units : 3 units PT Total Timed Code Tx Minutes : 45 minutes 8 Min Rule Unit Check PT OP : 3 units PT Total Treatment Time Rehab : 45 minutes 8 Min Rule Unit Difference PT OP : 0 Meredith Menendez PTA - 11/09/2022 17:29 EST Normal [facility] PT Outpatient Historical Rock a - Texton 2022 PT Outpatient Historical Data - Text PT Outpatient Historical Data Entered On: 2022 10:15 EST Performed On: 2022 10:15 EST by Meredith Menendez PTA PT Outpatient Historical Data Gericare Aide Teacher Goals : Yes Plan : Yes Manual Therapy : Yes Therapeutic Exercises : Yes Total Visit Count : 28 Precautions/Special Notes : 11/2 Calf -3 KE -5 soleus INV 14, EV 5 STN 4, ff/RF 7 1st MTP 34 deg Left calf KE 5 KF 6 Strength grossly 4/5 except Inver -4/5; tenderness HL and TIB Post. 09/10/22 DF KE 2 KF 3 Shon PALACIO Meredith 2022 10:15 EST Intermediate Goals - Historical PT Outpt Pt Goal - grid Goal #1 PT Patient,Caregiver Goal : Walk normally without pain Status : Progressing, continue Shon PALACIO Meredith 2022 10:15 EST General Function Goal #1 Goal #2 Goal #3 Goal : Ambulate community distances with normal gait mechanics Return to work Ascend and descend stairs with reciprocal pattern Duration : 6 Weeks 6 Weeks 6 Weeks Status : Initial Initial Progressing, continue Comment : without limitations working on 3-4 step Shon PALACIO [facility] 2022 10:15 EST Shon PALACIO [facility] 2022 10:15 EST Shon PALACIO [facility] 2022 10:15 EST Plan - Historical PT Frequency Rehab Outpatient : 2 times per week PT Duration Rehab Outpatient : 6 Weeks PT Anticipated Treatments, Needs - Outpt : Balance training, Therapeutic exercises, Pain Management, Posture/Body mechanics training, Gait training PT Plan/Goals Established w Pt/Caregiver : Yes Shon PALACIO [facility] 2022 10:15 EST Manual Therapy - Historical Manual Therapy Activity 1 Activity 2 Type/Technique : Myofascial/Soft tissue mobilization IASTM, Myofascial/Soft tissue mobilization Region : Other: achilles, gastroc and soleus Other: plantar fascia Equipment/Medium : Deep prep Descriptor : 15 15 Shon PALACIO Meredith 2022 10:15 EST Shon PALACIO [facility] 2022 10:15 EST Therapeutic Exercise - Historical Custom Therapeutic Exercise Exercise 1 Exercise 2 Exercise 3 Exercise 4 Exercise : NuStep joint mobs Talocrural and subtalar Anterior glides 1st MTP Slow reversals and hold relax stretch into extension of 1st MTP Repetition/Time : Grade III 5' x10 Resist or Assist : Not Performed : X Comment : Shon PALACIO Meredith 2022 10:15 EST Shon ADJUNCT LATIN PROFESSOR, 2022 10:15 EST Shon ADJUNCT LATIN PROFESSOR, 2022 10:15 EST Shon ADJUNCT LATIN PROFESSOR, 2022 10:15 EST Exercise 5 Exercise 6 Exercise 7 Exercise 8 Exercise : Small knee bends for dynamic achilles stretch slant board stretch Eccentric T-band Posterior Tib Gait training Repetition/Time : 10 30 x 3* 10x2 HEP Resist or Assist : red Not Performed : X X Comment : *Knee extended and then bent shorter stride to normalize patter. Shon ADJUNCT LATIN PROFESSOR, Meredith - 2022 10:15 EST Shon ADJUNCT LATIN PROFESSOR, 2022 10:15 EST Shon ADJUNCT LATIN PROFESSOR, 2022 10:15 EST Shon ADJUNCT LATIN PROFESSOR, 2022 10:15 EST Exercise 9 Exercise 10 Exercise 11 Exercise 12 Exercise : Forward step downs Half dome PF/DF, INV/EV, CW/CCW Bilateral FWD stretch LAQ/ HS curls Repetition/Time : Resist or Assist : 2.5#/green Not Performed : X Comment : 2 then 4 tibial FWD translation Shon ADJUNCT LATIN PROFESSOR, Meredith - 2022 10:15 EST Shon ADJUNCT LATIN PROFESSOR, Meredith - 2022 10:15 EST Shon ADJUNCT LATIN PROFESSOR, 2022 10:15 EST Shon ADJUNCT LATIN PROFESSOR, 2022 10:15 EST Exercise 14 Exercise 15 Exercise 16 Exercise 17 Exercise : Upright bike True [place] Strap Calf Stretch KE and KF Half dome PWB alphabet Repetition/Time : 30x3 Resist or Assist : 3 115# Not Performed : X X Comment : Shon ADJUNCT LATIN PROFESSOR, Meredith - 2022 10:15 EST Shon ADJUNCT LATIN PROFESSOR, 2022 10:15 EST Shon ADJUNCT LATIN PROFESSOR, 2022 10:15 EST Shon ADJUNCT LATIN PROFESSOR, 2022 10:15 EST Exercise 18 Exercise 20 Exercise 22 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 PT Outpatient Time Spent Wit h Pt-Texton 2022 PT Outpatient Time Spent With Pt-Text PT Outpatient Time Spent With Patient Entered On: 2022 10:59 EST Performed On: 2022 10:59 EST by Meredith Menendez PTA Time Spent with Patient - Outpatient PT Time In : 10:15 EST PT Time Out : 11:00 EST PT Therapeutic Exercise Time : 45 minutes ADJUNCT LATIN PROFESSOR Therapeutic Exercise Units : 3 units PT Total Timed Code Treatment Units : 3 units PT Total Timed Code Tx Minutes : 45 minutes 8 Min Rule Unit Check PT OP : 3 units PT Total Treatment Time Rehab : 45 minutes 8 Min Rule Unit Difference PT OP : 0 PMR Chart Review : Yes Shon HAKEEMMeredith - 2022 10:59 EST Normal [facility] Office Visit (Family Medicin e)on 09-11-2022 Follow-up visit Diagnoses/Problems Lymphadenopathy (785.6) (R59.1) Morbid obesity with BMI of 40.0-44.9, adult (278.01,V85.41) (E66.01,Z68.41) Orders Lymphadenopathy Start: Amoxicillin 500 MG Oral Tablet; One by mouth twice a day Start: Fluconazole 150 MG Oral Tablet; TAKE 1 TABLET ONCE AND REPEAT IN 1 WEEK Patient Discussion/Summary Begin taking amoxicillin for swollen lymph nodes Above normal BMI nutrition and physical activity reviewed Antibiotics frequently give you yeast infections Begin Diflucan for yeast infection Follow up if symptoms don't improve Blood pressure well controlled Schedule annual wellness exam Follow-up if symptoms do not improve biopsy may be necessary Provider Impressions By signing my name below, I, Shaunna Ellis, attest that this documentation has been prepared under the direction and in the presence of Dr. Hetal Alonso. Cynthia Lofton 09/11/22 Chief Complaint swollen gland. Adult Risk Screening Initial Fall Risk Screening: SERA has not fallen in the last 6 months. Tobacco Screening: SERA does not use tobacco. Depression/Suicide Screening: During the past 2 weeks, the patient has not felt down, depressed or hopeless. During the past 2 weeks, the patient has not felt little interest or pleasure in doing things. History of Present Illness Patient is a 41 y/o female who presents here today for evaluation of swollen gland. Bump is present behind her left ear and is painful to touch. Symptoms began 10 days ago. She had dental work recently so she followed up with her dentist and was told she doesn't have an infection. Patient denies recent upper respiratory infection. She has a dog. Patient reports increased fatigue; her has noticed she has been napping more. She reports she had a reaction to z-michele years ago. She states she usually has an infection after completing antibiotic. Review of Systems Constitutional: no chills, no fever and no night sweats. Eyes: no blurred vision and no eyesight problems. ENT: no hearing loss, no nasal congestion, no nasal discharge, no hoarseness and no sore throat. Neck: no mass(es) and no swelling. Cardiovascular: no chest pain, no intermittent leg claudication, no lower extremity edema, no palpitations and no syncope. Respiratory: no cough, no shortness of breath during exertion, no shortness of breath at rest and no wheezing. Gastrointestinal: no abdominal pain, no blood in stools, no constipation, no diarrhea, no melena, no nausea, no rectal pain and no vomiting. Genitourinary: no dysuria, no change in urinary frequency, no urinary hesitancy, no feelings of urinary urgency and no vaginal discharge. Musculoskeletal: no arthralgias, no back pain and no myalgias. Integumentary: no new skin lesions and no rashes. Neurological: no difficulty walking, no headache, no limb weakness, no numbness and no tingling. Psychiatric: no anxiety, no depression, no anhedonia and no substance use disorders. Endocrine: no recent weight gain and no recent weight loss. Hematologic/Lymphatic: no tendency for easy bruising and no swollen glands. Active Problems Adjustment disorder with mixed anxiety and depressed mood (309.28) (F43.23) Avascular necrosis of right talus (733.44) (M87.071) Back pain (724.5) (M54.9) Benign essential hypertension (401.1) (I10) Body mass index (BMI) of 50.0 to 59.9 in adult (V85.43) (Z68.43) Candidiasis, intertrigo (112.3) (B37.2) Depression (311) (F32.A) Added by Problem List Migration; 2013-10-13 Encounter for immunization (V03.89) (Z23) Encounter for screening mammogram for breast cancer (V76.12) (Z12.31) Exposure to influenza (V01.79) (Z20.828) Fatigue (780.79) (R53.83) Added by Problem List Migration; 2013-10-13 Foreign body in foot (917.6) (S90.859A) Hematuria (599.70) (R31.9) Hip injury, left, initial encounter (959.6) (S79.912A) History of ankle surgery (V45.89) (Z98.890) Kidney stones (592.0) (N20.0) Leg cramps (729.82) (R25.2) Morbid obesity with BMI of 40.0-44.9, adult (278.01,V85.41) (E66.01,Z68.41) Morbid obesity with BMI of 50.0-59.9, adult (278.01,V85.43) (E66.01,Z68.43) Pharyngitis, acute (462) (J02.9) Preoperative clearance (V72.84) (Z01.818) Renal colic (788.0) (N23) Right flank pain (789.09) (R10.9) Sinus congestion (478.19) (R09.81) Sore throat (462) (J02.9) Uses control (V49.89) (Z78.9) Past Medical History History of (V13.29) History of Talus fracture (825.21) (S92.109A) Surgical History History of Ankle Surgery talus History of Cholecystectomy Family History Family history of Salivary gland cancer Social History Mother Never a smoker No alcohol use No drug use Uses control (V49.89) (Z78.9) Allergies Percocet TABS Hallucinations;; Updated By: Arleth Sanz; 12/18/2021 8:44:55 AM Zithromax PACK Recorded By: Irma Cox; 02/11/2014 2:59:16 PM Current Meds Medication NameInstr (more content not included)... Normal [facility] Office Visit (Family Medicin art)on 08-20-2022 Follow-up visit Diagnoses/Problems Depression (311) (F32.A) Added by Problem List Migration; 2013-10-13 Leg cramps (729.82) (R25.2) Morbid obesity with BMI of 40.0-44.9, adult (278.01,V85.41) (E66.01,Z68.41) Patient Discussion/Summary Depression stable well-controlled Continue taking duloxetine Follow up in 6 months Above normal BMI nutrition and physical activity reviewed Right leg cramps: Remember to stretch well Recommend magnesium, calcium and iron supplement Drink plenty of water Try lidocaine patch or sports cream Schedule annual wellness exam Provider Impressions By signing my name below, I, Shaunna Ellis, attest that this documentation has been prepared under the direction and in the presence of Dr. Hetal Alonso. Cynthia Lofton 08/20/22 Chief Complaint 1 month follow up. Adult Risk Screening Initial Fall Risk Screening: SERA has not fallen in the last 6 months. Tobacco Screening: SERA does not use tobacco. Depression/Suicide Screening: During the past 2 weeks, the patient has not felt down, depressed or hopeless. During the past 2 weeks, the patient has not felt little interest or pleasure in doing things. History of Present Illness Patient is a 41 y/o female with a history of HTN who presents here today for a follow up visit regarding medication management. She is using a cane. Patient reports blurry vision on 20 mg duloxetine. She states it has been hard for her to adjust from distance to close up. Patient denies weakness on one side, numbness, dropping, trouble thinking of words or trouble swallowing. She states pain is still present when she walks but has resolved at rest. She is able to sleep. Patient reports atrophy in her calf muscle since she had the boot. She has resumed physical therapy. She has constant leg cramps at night. She is staying well hydrated and taking magnesium supplement. She states she had a calf lengthening surgery. She is following a low sodium diet. Her dad has unexplained leg cramps in both legs. Applying heat helps a little. Review of Systems Constitutional: no chills, no fever and no night sweats. Eyes: no blurred vision and no eyesight problems. ENT: no hearing loss, no nasal congestion, no nasal discharge, no hoarseness and no sore throat. Neck: no mass(es) and no swelling. Cardiovascular: no chest pain, no intermittent leg claudication, no lower extremity edema, no palpitations and no syncope. Respiratory: no cough, no shortness of breath during exertion, no shortness of breath at rest and no wheezing. Gastrointestinal: no abdominal pain, no blood in stools, no constipation, no diarrhea, no melena, no nausea, no rectal pain and no vomiting. Genitourinary: no dysuria, no change in urinary frequency, no urinary hesitancy, no feelings of urinary urgency and no vaginal discharge. Musculoskeletal: no arthralgias, no back pain and no myalgias. Integumentary: no new skin lesions and no rashes. Neurological: no difficulty walking, no headache, no limb weakness, no numbness and no tingling. Psychiatric: no anxiety, no depression, no anhedonia and no substance use disorders. Endocrine: no recent weight gain and no recent weight loss. Hematologic/Lymphatic: no tendency for easy bruising and no swollen glands. Active Problems Adjustment disorder with mixed anxiety and depressed mood (309.28) (F43.23) Avascular necrosis of right talus (733.44) (M87.071) Back pain (724.5) (M54.9) Benign essential hypertension (401.1) (I10) Body mass index (BMI) of 50.0 to 59.9 in adult (V85.43) (Z68.43) Candidiasis, intertrigo (112.3) (B37.2) Depression (311) (F32.A) Added by Problem List Migration; 2013-10-13 Encounter for immunization (V03.89) (Z23) Encounter for screening mammogram for breast cancer (V76.12) (Z12.31) Exposure to influenza (V01.79) (Z20.828) Fatigue (780.79) (R53.83) Added by Problem List Migration; 2013-10-13 Foreign body in foot (917.6) (S90.859A) Hematuria (599.70) (R31.9) Hip injury, left, initial encounter (959.6) (S79.912A) History of ankle surgery (V45.89) (Z98.890) Kidney stones (592.0) (N20.0) Morbid obesity with BMI of 40.0-44.9, adult (278.01,V85.41) (E66.01,Z68.41) Morbid obesity with BMI of 50.0-59.9, adult (278.01,V85.43) (E66.01,Z68.43) Pharyngitis, acute (462) (J02.9) Preoperative clearance (V72.84) (Z01.818) Renal colic (788.0) (N23) Right flank pain (789.09) (R10.9) Sinus congestion (478.19) (R09.81) Sore throat (462) (J02.9) Uses control (V49.89) (Z78.9) Past Medical History History of (V13.29) History of Talus fracture (825.21) (S92.109A) Surgical History History of Ankle Surgery talus History of Cholecystectomy Family History Family history of Salivary gland cancer Social History Mother Never a smoker No alcohol use No drug use Uses control (V49.89) (Z78.9) Allergies Percocet TABS Hallucinations;; Updated By: Renuka Sanz (more content not included)... Normal [employer] Office Visit (Family Medicin e)on 07-18-2022 Follow-up visit Diagnoses/Problems Benign essential hypertension (401.1) (I10) Avascular necrosis of right talus (733.44) (M87.071) Morbid obesity with BMI of 40.0-44.9, adult (278.01,V85.41) (E66.01,Z68.41) * Orders Avascular necrosis of right talus Start: Disability Placard; Handicap Placard 5years, DX: Arthritis Pain Management Referral Evaluation and Treatment Evaluate AND Treat Status: Active Requested for: [id number] AMA Intake Activity Log Entry by kyle montes ([email or web address]) on 2022-07-24 10:13 Status Change: To Closed - Unable To Schedule-Patient Will Schedule With Non-, per patient her doctor wants her to see Dr.David Jenni VALE i gave her the direct number to schedule Start: DULoxetine HCl - 20 MG Oral Capsule Delayed Release Particles; one by mouth daily Benign essential hypertension Renew: amLODIPine Besy-Benazepril HCl - 5-20 MG Oral Capsule; TAKE 1 CAPSULE Daily Encounter for immunization Temporarily Stop: Fluarix Quadrivalent 0.5 ML Intramuscular Suspension Prefilled Syringe Encounter for screening mammogram for breast cancer Mamm - Screening Mammogram w/ Tomosynthesis; Status:Hold For - Scheduling; Requested for:[id number]; Radiologist to Determine Optimal Study : Y What are the patient's signs and symptoms ? : Annual Screening Mammogram Avascular necrosis of right talus (733.44) (M87.071) Patient Discussion/Summary Health maintenance Schedule mammogram Recommend covid booster Chronic pain: Secondary to avascular necrosis of the foot and chronic ankle issue This may also be affecting your mood and the sadness The medication should help with the mild depression as well as the pain I also recommend pain management if no improvement Begin taking 20 mg Duloxetine Given disability placard Given referral to pain management HTN: Blood pressure well controlled Continue taking medication as prescribed High BMI Weight reduction will help pressure on the joints Above normal BMI. Remember to exercise regularly and follow a healthy diet. Schedule annual wellness exam Provider Impressions By signing my name below, I, Shaunna Ellis, attest that this documentation has been prepared under the direction and in the presence of Dr. Hetal Alonso. Cynthia Lofton 07/18/22 Chief Complaint possible low blood pressure/ pain management. Adult Risk Screening Initial Fall Risk Screening: SERA has not fallen in the last 6 months. Tobacco Screening: SERA does not use tobacco. Depression/Suicide Screening: During the past 2 weeks, the patient has not felt down, depressed or hopeless. During the past 2 weeks, the patient has not felt little interest or pleasure in doing things. History of Present Illness Patient is a 41 y/o female with a history of HTN who presents here today for evaluation of low blood pressure and to discuss pain. She is using a cane and wearing a brace. She has been struggling for quite some time with the chronic pain in her foot and the joint pain struggling with her weight it is very frustrating for her we had a long extensive discussion It is really impacting her life she wants to get back to being active and it is very hard due to the pain the surgery was successful however she is still bothered by joint pain in her foot and other areas which has been problematic and its leading to some sadness and feeling a little bit down she has some mild depressive symptoms does get tearful at times but but for the most part is doing well note not a danger to herself or others her quality of life is poor at this time and she is asking for some sort of help with pain and also with her mood Patient has not had surgery since last office visit. She needs to have a slight revision and have scar tissue removed. She also injured a ligament. She has a follow up appointment with her surgeon to discuss her options. She is not ready for surgery. She has resumed physical therapy. Patient reports constant pain. Her doctor recommended antidepressant for pain. She is concerned about starting medication since she had a reaction to Wellbutrin. She reports she took Cymbalta years ago for back pain and felt jittery but states medication helped. She has been taking Advil at night. She would like a disability placard. Patient reports she has occasional dizzy spells. She was concerned symptoms were due to low blood pressure Patient is unsure if she should get the new covid booster. Patient would like a referral to ob-leaf coverer. Patient reports she has lost weight 55 lbs since March with [employer]. Review of Systems Constitutional: no chills, no fever and no night sweats. Eyes: no blurred vision and no eyesight problems. ENT: no hearing loss, no nasal congestion, no nasal discharge, no hoarseness and no sore throat. Neck: no mass(es) and no swelling. Cardiovascular: no chest pain, no intermittent leg claudication, no lower extremity edema, no palpitations and no syncope. Respiratory: no (more content not included)... Normal [facility] CORONAVIRUS 2019, SCREEN ASY MPTOMATICon 01-23-2022 SARS-CoV-2 (COVID-19) RNA MEKA+probe Ql (Unsp spec) Not detected Normal Not Detected [facility] Comment on above: Result Comment: . This assay is designed to detect the N, ORF1ab and/or S genes of SARS-CoV-2 via nucleic acid amplification. A Negative (NOT DETECTED) result does not preclude 2019-nCoV infection since the adequacy of sample collection and/or low viral burden may result in presence of viral nucleic acids below the clinical sensitivity of this test method. Negative (NOT DETECTED) result should not be used as the sole basis for treatment or other patient management decisions. Rather negative results should be combined with clinical observations, patient history, and epidemiological information to make patient management decisions. Fact sheet for providers: https://www.fda.gov/media/820599/download Fact sheet for patients: https://www.fda.gov/media/650801/download This test has received FDA Emergency Use Authorization (EUA) and has been verified by [facility] ([facility]). This test is only authorized for the duration of time that circumstances exist to justify the authorization of the emergency use of in vitro diagnostic tests for the detection of SARS-CoV-2 virus and/or diagnosis of COVID-19 infection under section 564(b)(1) of the Act, 21 U.S.C. 360bbb-3(b)(1), unless the authorization is terminated or revoked sooner. [facility] is certified under CLIA-88 as qualified to perform high complexity testing. Testing is performed in the [facility] laboratories located at [address] [place] [address]. Performed By: #### C OVSC #### [address] [place] [address] Covid 19 Resultson 2 SARS-CoV-2 (COVID-19) RNA MEKA+probe Ql (Unsp spec) NEGATIVE COVID-19 Test Coronaviruses are common world-wide and are the cause of many common colds. SARS-COV2 is a new coronavirus that began circulating worldwide in 2019 so we are calling it COVID-19. It has been estimated that four out of five patients with COVID-19 will recover at home without the need for medical attention. Symptoms of COVID-19 may include cough, fever, shortness of breath, loss of taste or smell and other flu-like symptoms including chills, sore muscles, sore throat, and headache. Severe illness is more common in older people and people with other health problems such as high blood pressure, obesity, and immune system problems. If the test is positive, you have COVID-19. You will be contacted by the ordering physicians office and instructed to remain on home isolation, in accordance with CDC guidelines. You may also be contacted by the [facility] to see if any of your close contacts may have been exposed to the virus and need to quarantine. If the test is negative, you likely do not have COVID-19 at this time, but you still may have a different illness that can spread to other people (like Influenza, or the Flu) and could still be at risk for getting COVID-19. We recommend that you stay away from other people to limit the spread of illness until your symptoms are improving and you are fever-free for 24 hours without the use of fever lowering medications such as acetaminophen or ibuprofen. No test is 100% accurate so if you are still concerned you may have COVID-19, talk to your doctor about the need to continue to stay away from others. Medicines Unless your provider told you not to use the following: Acetaminophen (Tylenol and others) is generally safe. Anti-inflammatory medications, such as Ibuprofen (Advil or Motrin) or Naproxen (Aleve) can also be used. Zkfw-zyd-elizkbc cough and cold medicines can be used according to the instructions on the package. Some kddj-bit-nfdahac medicines also contain acetaminophen. Make sure you are not taking more than your recommended dose. For those not hospitalized, there is no specific treatment available for this illness. Antibiotics do not treat Coronaviruses. Follow-Up Follow up with your doctor by scheduling a virtual visit or consider follow-up at one of our urgent care fever clinics. If you are having difficulty breathing, or are very weak and having difficulty standing, this is a medical emergency. Call 911 or have someone take you to the nearest emergency room immediately. If possible, wear a facemask. Additional guidance from the CDC for patients who tested POSITIVE for COVID-19 How to isolate: Isolate yourself in a specific room at home and limit your contact with others. Use a separate bathroom from other members of the household, when possible. Leave home only to get essential medical care. Do not go to work, school or public areas. Avoid using public transportation, ride-sharing, or taxis. Restrict contact with pets and other animals. If you must care for your pet or be around animals while you are sick, wash your hands before and after your interaction and wear a facemask. Make sure that shared spaces in the home have good airflow, such as by an air conditioner or an opened window, weather permitting. Personal Hygiene Procedures: Wear a face mask when in the same room as other people or pets. If a face mask interferes with your breathing, others should wear a mask when sharing space with you. Frequent hand-washing: wash your hands with soap and water for at least 20 seconds. If soap and water are not available, use alcohol-based hand veterinary technician. Avoid touching your eyes, nose, and mouth with unwashed hands. Household Hygiene Procedures: Avoid sharing personal household items such as dishes, glassware, cups, eating utensils, towels or bedding with other people or pets in your home. After use, these items should be washed with soap and hot water. Disinfect all high-touch surfaces every day with antibacterial cleaning solutions such as Lysol wipes, bleach, cleansers, etc. High-touch surfaces include tabletops, doorknobs, bathroom fixtures, toilets, phones, keyboards, tablets and bedside tables. Immediately clean any surfaces that may have blood, poop or body fluids on them, using antibacterial cleaning solutions such as Lysol wipes, bleach, cleansers, etc. If clothing or bedding come into contact with blood, poop or body fluids, they should be washed immediately. Follow the directions on the laundry detergent and clothing labels but hot water is recommended when possible. Stopping home isolation precautions: If possible, consult your doctor before stopping home isolation precautions. According to the CDC, you can discontinue home isolation precautions when you have met both of these criteria: Your fever and respiratory symptoms have been gone for 24 stanley (more content not included)... Normal [facility] CORONAVIRUS 2019, SCREEN ASY MPTOMATICon 01-22-2022 Lab Specimen Source Nasal, Nasopharyngeal Normal [facility] Comment on above: Performed By: #### C OVSC #### [address] [place] [address] Coronavirus 2019 RNA by PCR, Screening Asymptomticon 01-22-2022 Coronavirus 2019 RNA by PCR, Screening Asymptomtic Not detected Normal See Below SG-Rgxfxpl-Rq rupinder TAYLOR 400 DO Work Phone: Comment on above: SOURCE: Nasal, Nasop haryngealReference Range: Not Detected.This assay is designed to detect the N, ORF1ab and/or S genes of SARS-CoV-2 via nucleic acid amplification. A Negative (NOT DETECTED) result does not preclude 2019-nCoV infection since the adequacy of sample collection and/or low viral burden may result in presence of viral nucleic acids below the clinical sensitivity of this test method. Negative (NOT DETECTED) result should not be used as the sole basis for treatment or other patient management decisions. Rather negative results should be combined with clinical observations, patient history, and epidemiological information to make patient management decisions.Fact sheet for providers: https://www.fda.gov/media/915888/downloadFact sheet for patients: https://www.fda.gov/media/707833/downloadThis test has received FDA Emergency Use Authorization (EUA) and has been verified by [facility] ([facility]). This test is only authorized for the duration of time that circumstances exist to justify the authorization of the emergency use of in vitro diagnostic tests for the detection of SARS-CoV-2 virus and/or diagnosis of COVID-19 infection under section 564(b)(1) of the Act, 21 U.S.C. 360bbb-3(b)(1), unless the authorization is terminated or revoked sooner. [facility] is certified under CLIA-88 as qualified to perform high complexity testing. [facility] is performed in the [facility] laboratories located at [address] [place] [address]. ABDOMEN AP VIEWon 01-19-2022 ABDOMEN AP VIEW Patient Name: SERA WOO STUDY: ABDOMEN AP VIEW INDICATION: kidney stones N20.0: Kidney stones. COMPARISON: January 19 ACCESSION NUMBER(S): [id number] ORDERING CLINICIAN: ABI KARIMI FINDINGS: Postsurgical changes right upper quadrant. Bowel gas pattern unremarkable. No pathologic calcifications noted. IMPRESSION: Grossly unremarkable radiographs of the abdomen. Electronically signed by: FRANCIA HINKLE MD Normal [facility] BASIC METABOLIC PANELon 01-02 Anion gap [Moles/Vol] 12 mmol/L Normal 10 - 20 [facility] Comment on above: Performed By: #### B MP #### [address] [place] [address] Calcium [Mass/Vol] 9.3 mg/dL Normal 8.6 - 10.3 [facility] Comment on above: Performed By: #### B MP #### [address] [address] Chloride [Moles/Vol] 104 mmol/L Normal 98 - 107 [facility] Comment on above: Performed By: #### B MP #### [address] [place] [address] Creatinine [Mass/Vol] 0.61 mg/dL Normal 0.50 - 1.05 [facility] Comment on above: Performed By: #### B MP #### [address] [place] [address] eGFR FEMALE >90 Normal >90 [facility] Comment on above: Result Comment: CALC ULATIONS OF ESTIMATED GFR ARE PERFORMED USING THE 2020 CKD-EPI STUDY REFIT EQUATION WITHOUT THE RACE VARIABLE FOR THE IDMS-TRACEABLE CREATININE METHODS. https://jasn.asnjournals.org/content//ASN.7756599022 Performed By: #### B MP #### [address] [place] [address] Glucose [Mass/Vol] 96 mg/dL Normal 74 - 99 [facility] Comment on above: Performed By: #### B MP #### [address] [place] [address] HCO3 (Bld) [Moles/Vol] 24 mmol/L Normal 21 - 32 [facility] Comment on above: Performed By: #### B MP #### [address] [place] [address] Potassium [Moles/Vol] 4.2 mmol/L Normal 3.5 - 5.3 [facility] Comment on above: Performed By: #### B MP #### [address] [address] Sodium [Moles/Vol] 136 mmol/L Normal 136 - 145 [facility] Comment on above: Performed By: #### B MP #### [address] [place] [address] Urea nitrogen [Mass/Vol] 11 mg/dL Normal 6 - 23 [facility] Comment on above: Performed By: #### B MP #### [address] [address] CBCon 01-19-2022 Erythrocyte distribution width (RBC) [Ratio] 14.5 % Normal 11.5 - 14.5 [facility] Comment on above: Performed By: #### C BC #### [address] [address] Hematocrit (Bld) [Volume fraction] 43.9 % Normal 36.0 - 46.0 [facility] Comment on above: Performed By: #### C BC #### [address] [address] Hemoglobin (Bld) [Mass/Vol] 13.8 g/dL Normal 12.0 - 16.0 [facility] Comment on above: Performed By: #### C BC #### [address] [address] MCHC (RBC) [Mass/Vol] 31.4 g/dL Low 32.0 - 36.0 [facility] Comment on above: Performed By: #### C BC #### [address] [address] MCV (RBC) [Entitic vol] 88 fL Normal 80 - 100 [facility] Comment on above: Performed By: #### C BC #### [address] [address] NUCLEATED RBC 0.0 /100 WBC Normal 0.0 - 0.0 [facility] Comment on above: Performed By: #### C BC #### [address] [address] Platelets (Bld) [#/Vol] 348 10*3/uL Normal 150 - 450 [facility] Comment on above: Performed By: #### C BC #### [address] [address] RBC 5.00 x10E12/L Normal 4.00 - 5.20 [facility] Comment on above: Performed By: #### C BC #### [address] [address] WBC (Bld) [#/Vol] 7.6 10*3/uL Normal 4.4 - 11.3 [facility] Comment on above: Performed By: #### C BC #### [address] [address] COAGULATION SCREENon 022 aPTT Coag (Bld) [Time] 31 s Normal 26 - 39 [facility] Comment on above: Result Comment: Note new reference range as of 10/03/2021 at 10:00am. Performed By: #### C OAGS #### [address] [address] PT Coag (PPP) [Time] 11.2 s Normal 9.8 - 13.4 [facility] Comment on above: Result Comment: Note new reference range as of 10/03/2021 at 10:00am. Performed By: #### C OAGS #### [address] [address] PT, INR 1.0 Normal 0.9 - 1.1 [facility] Comment on above: Performed By: #### C OAGS #### [address] [address] Cult, Urineon 01-19-2022 Bacteria identified Cx Nom (U) ST-Tuvmyjs-Ot rupinder SJW 400 DO Work Phone: Laboratory - Chemistry and C hemistry - challengeon 03-18-2022 Anion gap [Moles/Vol] 12 mmol/L 10 - 20 WI-Ngiymep-Xt stfranko Thanx 400 DO Work Phone: Calcium [Mass/Vol] 9.3 mg/dL 8.6 - 10.3 VK-Bqaqmbr-Du stfranko Thanx 400 DO Work Phone: Chloride [Moles/Vol] 104 mmol/L 98 - 107 ZK-Mrcwubb-Zp stfranko Thanx 400 DO Work Phone: CO2 [Moles/Vol] 24 mmol/L 21 - 32 MP-Urolog y-We stfranko Thanx 400 DO Work Phone: Creatinine [Mass/Vol] 0.61 mg/dL See Below GR-Cujqyvv-Lw rupinder Thanx 400 DO Work Phone: Comment on above: Reference Range: 0.5 0 - 1.05 Glucose [Mass/Vol] 96 mg/dL 74 - 99 MD-Roxnmsv-De rupinder [facility] 400 DO Work Phone: Potassium [Moles/Vol] 4.2 mmol/L 3.5 - 5.3 OK-Ayvdrdc-Oc stfranko Thanx 400 DO Work Phone: Sodium [Moles/Vol] 136 mmol/L 136 - 145 KC-Ywfgidc-Fp rupinder [facility] 400 DO Work Phone: Urea nitrogen [Mass/Vol] 11 mg/dL 6 - 23 LI-Yncffnj-Qg Curiyofranko Thanx 400 DO Work Phone: Laboratory - Coagulationon 0 - aPTT Coag (PPP) [Time] 31 s 26 - 39 KC-Bvtzxea-Zo Curiyofranko Thanx 400 DO Work Phone: Comment on above: Note new reference truong blancas as of 10/03/2021 at 10:00am. INR Coag (PPP) [Relative time] 1.0 {INR} 0.9 - 1.1 QT-Vwzyhei-Jf Curiyofranko Thanx 400 DO Work Phone: PT Coag (PPP) [Time] 11.2 s 9.8 - 13.4 GB-Vuvwghk-Is stgris[place]ake SJW 400 DO Work Phone: Comment on above: Note new reference truong blancas as of 10/03/2021 at 10:00am. Laboratory - Hematology and Cell countson 01-19-2022 Erythrocyte distribution width (RBC) [Ratio] 14.5 % See Below TI-Ueidbjc-Aw [place] SJW 400 DO Work Phone: Comment on above: Reference Range: 11. 5 - 14.5 Hematocrit (Bld) [Volume fraction] 43.9 % See Below FX-Beoyewy-Cn [place] SJW 400 DO Work Phone: Comment on above: Reference Range: 36. 0 - 46.0 Hemoglobin (Bld) [Mass/Vol] 13.8 g/dL See Below EY-Kgcebtu-Iq [place] SJW 400 DO Work Phone: Comment on above: Reference Range: 12. 0 - 16.0 MCHC (RBC) [Mass/Vol] 31.4 g/dL below low threshold See Below GC-Xneqqgh-Jg stlake SJW 400 DO Work Phone: Comment on above: Reference Range: 32. 0 - 36.0 MCV (RBC) [Entitic vol] 88 fL 80 - 100 ON-Oazdqwh-Bo [place] SJW 400 DO Work Phone: Platelets (Bld) [#/Vol] 348 10*3/uL 150 - 450 UA-Pnsxpqo-Dd stlake SJW 400 DO Work Phone: RBC (Bld) [#/Vol] 5.00 {x10E12/L} See Below MP -Urology-We stlake SJW 400 DO Work Phone: Comment on above: Reference Range: 4.0 0 - 5.20 WBC (Bld) [#/Vol] 7.6 10*3/uL 4.4 - 11.3 MP-Uro logy-We [place] SJW 400 DO Work Phone: No Panel Informationon 01-19 >90 >90 RH-Arksmwc-Md [facility] 400 DO Work Phone: Comment on above: CALCULATIONS OF BONNY MATED GFR ARE PERFORMED USING THE 2020 CKD-EPI STUDY REFIT EQUATION WITHOUT THE RACE VARIABLE FOR THE IDMS-TRACEABLE CREATININE METHODS.https://jasn.asnjournals.org/content/early//ASN.20 93042026 0.0 {/100_WBC} 0.0 - 0.0 MP-Urology -We [facility] 400 DO Work Phone: Radiologyon 01-19-2022 XR Abdomen AP Normal -Urology- We [facility] 400 DO Work Phone: URINE CULTURE,BACTERIALon URINE CULTURE,BACTERIAL PATIENT: SERA WOO LOCATION: [facility]#: [id number] : 76 AGE: SEX: F ORDERED BY: ABI KARIMI SOURCE: URINE COLLECTED: 01/19/22 09:45 ANTIBIOTICS AT [facility].: RECEIVED : 01/19/22 18:45 SITE: Unspecified R E S U L T S URINE CULTURE,BACTERIAL FINAL 01/20/22 11:20 MIXED URETHRAL ELIUD. Normal [facility] Comment on above: Performed By: #### U RINC #### [facility] [address] [place] [address] CORONAVIRUS 2019, SCREEN ASY MPTOMATICon 01-15-2022 DATE OF SYMPTOM ONSET [YYYYMMDD]? Canceled Normal [facility] Comment on above: Order Comment: TEST CORONAVIRUS 2019, SCREEN ASYMPTOMATIC WAS CANCELLED, 01/15/2022 11:50 Updated order placed for STAT test. Performed By: #### C OVSC #### [facility] [address] [place] [address] SARS-CoV-2 (COVID-19) RNA MEKA+probe Ql (Unsp spec) Canceled Normal [facility] Comment on above: Order Comment: TEST CORONAVIRUS 2018, SCREEN ASYMPTOMATIC WAS CANCELLED, 01/15/2022 11:50 Updated order placed for STAT test. Result Comment: . This assay is designed to detect the N, ORF1ab and/or S genes of SARS-CoV-2 via nucleic acid amplification. A Negative (NOT DETECTED) result does not preclude 2019-nCoV infection since the adequacy of sample collection and/or low viral burden may result in presence of viral nucleic acids below the clinical sensitivity of this test method. Negative (NOT DETECTED) result should not be used as the sole basis for treatment or other patient management decisions. Rather negative results should be combined with clinical observations, patient history, and epidemiological information to make patient management decisions. Fact sheet for providers: https://www.fda.gov/media/131988/download Fact sheet for patients: https://www.fda.gov/media/614595/download This test has received FDA Emergency Use Authorization (EUA) and has been verified by [facility] ([facility]). This test is only authorized for the duration of time that circumstances exist to justify the authorization of the emergency use of in vitro diagnostic tests for the detection of SARS-CoV-2 virus and/or diagnosis of COVID-19 infection under section 564(b)(1) of the Act, 21 U.S.C. 360bbb-3(b)(1), unless the authorization is terminated or revoked sooner. [facility] is certified under CLIA-88 as qualified to perform high complexity testing. [facility] is performed in the [facility] laboratories located at [address] [place] [address]. Performed By: #### C OVSC #### [place] [address] DATE OF SYMPTOM ONSET [[id number]]? Canceled Normal [facility] Comment on above: Order Comment: TEST CORONAVIRUS 2018, SCREEN ASYMPTOMATIC WAS CANCELLED, 01/15/2022 11:49 Updated order placed for STAT test. Performed By: #### C OVSC #### [place] [address] SARS-CoV-2 (COVID-19) RNA MEKA+probe Ql (Unsp spec) Canceled Normal [facility] Comment on above: Order Comment: TEST CORONAVIRUS 2018, SCREEN ASYMPTOMATIC WAS CANCELLED, 01/15/2022 11:49 Updated order placed for STAT test. Result Comment: . This assay is designed to detect the N, ORF1ab and/or S genes of SARS-CoV-2 via nucleic acid amplification. A Negative (NOT DETECTED) result does not preclude 2019-nCoV infection since the adequacy of sample collection and/or low viral burden may result in presence of viral nucleic acids below the clinical sensitivity of this test method. Negative (NOT DETECTED) result should not be used as the sole basis for treatment or other patient management decisions. Rather negative results should be combined with clinical observations, patient history, and epidemiological information to make patient management decisions. Fact sheet for providers: https://www.fda.gov/media/225936/download Fact sheet for patients: https://www.fda.gov/media/198675/download This test has received FDA Emergency Use Authorization (EUA) and has been verified by [facility] ([facility]). This test is only authorized for the duration of time that circumstances exist to justify the authorization of the emergency use of in vitro diagnostic tests for the detection of SARS-CoV-2 virus and/or diagnosis of COVID-19 infection under section 564(b)(1) of the Act, 21 U.S.C. 360bbb-3(b)(1), unless the authorization is terminated or revoked sooner. [facility] is certified under CLIA-88 as qualified to perform high complexity testing. [facility] is performed in the [facility] laboratories located at [address] [place] [address]. Performed By: #### C OVSC #### [address] [place] [address] Lab Specimen Source Nasal, Nasopharyngeal Normal [facility] Comment on above: Order Comment: TEST CORONAVIRUS 2018, SCREEN ASYMPTOMATIC WAS CANCELLED, 01/15/2022 11:49 Updated order placed for STAT test. Performed By: #### C OVSC #### [facility] [address] [place] [address] CORONAVIRUS 2019, SCREEN ASY MPTOMATICon 01-12-2022 Lab Specimen Source Nasal, Nasopharyngeal Normal [facility] Comment on above: Order Comment: TEST CORONAVIRUS 2018, SCREEN ASYMPTOMATIC WAS CANCELLED, 01/15/2022 11:50 Updated order placed for STAT test. Performed By: #### C OVSC #### [facility] [address] [place] [address] CORONAVIRUS 2018, SCREEN ASY MPTOMATICon 01-08-2022 Lab Specimen Source Nasal, Nasopharyngeal Normal [facility] Comment on above: Order Comment: TEST CORONAVIRUS 2018, SCREEN ASYMPTOMATIC WAS CANCELLED, 01/15/2022 11:50 Updated order placed for STAT test. Performed By: #### C OVSC #### [facility] [address] [place] [address] Chart Updateon 01-03-2022 Chart Update Chart Update CT images from [facility] received Right upper pole non-obstructing stone. Too small to determine HU Skin to stone distance 13cm. Signatures Electronically signed by : Abi Karimi MD; Jan 03 2022 8:30PM EST (Author) Normal [facility] Office Visit (Urology)on Follow-up visit Diagnoses/Problems Assessed Kidney stones (592.0) (N20.0) Orders Kidney stones Xray Abdomen AP View; Status:Hold For - Scheduling,Retrospective Authorization; Requested for:11Jan2022; Perform:[facility]; Due:11Apr2022; Last Updated By:Katie Scott; 12/28/2021 3:25:30 PM;Ordered; For:Kidney stones; Ordered By:Abi Karimi; Radiologist to Determine Optimal Study : Y What are the patient's signs and symptoms? : kidney stones Provider Impressions 41-year-old female see me regarding kidney stones Kindly referred by Cathleen Sanz [facility]: Obesity, BMI greater than 50, depression, hypertension Saw Cathleen Sanz 12/18. Right renal colic beginning end of November, subsided to more achy tolerable pain. No longer symptomatic. First stone episode. CTU from [facility] 12/11/2021: Report only available. 5 mm nonobstructing right-sided stone. Punctate left-sided nonobstructing stone. Patient leaning away from surgery to do rough year of medical accident. Patient goals are avoid anesthesia, avoid surgery. #Right nephrolithiasis-no longer symptomatic -We discussed management options, the 3 that I think are most pertinent for observation, ESWL, and ureteroscopy. She is stated that she is not interested in any invasive surgery, is not interested in ureteroscopy at this time. We discussed that ESWL may not be best suited for her given her body habitus, though I will assess the CT scan and also a KUB to assess whether the stone may be amenable to ESWL. I noted to her that it would have a lower stone clearance rate given her body habitus, approaching 50 to 60%. We will rediscuss this after the CT scan images are obtained -KUB Saturday before procedure to confirm radiopaque -If not radiopaque or not amenable to ESWL, will continue with surveillance Chief Complaint An interactive audio and video telecommunication system which permits real time communications between the patient (at the originating site) and provider (at the distant site) was utilized to provide this telehealth service. Verbal consent was requested and obtained from SERA WOO on this date, 12/28/2021 02:30 PM , for a telehealth visit. kidney stones History of Present [id number] female see me regarding kidney stones Kindly referred by Cathleen Sanz [facility]: Obesity, BMI greater than 50, depression, hypertension Saw Cathleen Sanz 12/18. Right renal colic beginning end of November, subsided to more achy tolerable pain. No longer symptomatic. First stone episode. CTU from [facility] 12/11/2021: Report only available. 5 mm nonobstructing right-sided stone. Punctate left-sided nonobstructing stone. Patient leaning away from surgery to do rough year of medical accident. Patient goals are avoid anesthesia, avoid surgery. Review of Systems A 12 system review was completed and is negative with the exception of those signs and symptoms noted in the history of present illness. Active Problems Problems Adjustment disorder with mixed anxiety and depressed mood (309.28) (F43.23) Avascular necrosis of right talus (733.44) (M87.071) Back pain (724.5) (M54.9) Benign essential hypertension (401.1) (I10) Body mass index (BMI) of 50.0 to 59.9 in adult (V85.43) (Z68.43) Candidiasis, intertrigo (112.3) (B37.2) Depression (311) (F32.A) Added by Problem List Migration; 2013-10-13 Exposure to influenza (V01.79) (Z20.828) Fatigue (780.79) (R53.83) Added by Problem List Migration; 2013-10-13 Foreign body in foot (917.6) (S90.859A) Hematuria (599.70) (R31.9) Hip injury, left, initial encounter (959.6) (S79.912A) History of ankle surgery (V45.89) (Z98.890) Kidney stones (592.0) (N20.0) Morbid obesity with BMI of 50.0-59.9, adult (278.01,V85.43) (E66.01,Z68.43) Pharyngitis, acute (462) (J02.9) Preoperative clearance (V72.84) (Z01.818) Renal colic (788.0) (N23) Right flank pain (789.09) (R10.9) Sinus congestion (478.19) (R09.81) Sore throat (462) (J02.9) Uses control (V49.89) (Z78.9) Past Medical History Problems History of (V13.29) History of Talus fracture (825.21) (S92.109A) Surgical History Problems History of Ankle Surgery talus History of Cholecystectomy Family History Father Family history of Salivary gland cancer Social History Problems Mother Never a smoker No alcohol use No drug use Uses control (V49.89) (Z78.9) Allergies Medication Percocet TABS Hallucinations;; Updated By: Arleth Sanz; 12/18/2021 8:44:55 AM Zithromax PACK Recorded By: Irma Cox; 02/11/2014 2:59:16 PM Current Meds Medication NameInstruction amLODIPine Besy-Benazepril HCl - 5-20 MG Oral CapsuleTAKE 1 CAPSULE Daily Camrese 0.15-0.03 AND0.01 MG Oral Tablet Clotrimazole-Betamethasone 1-0.05 % External CreamAPPLY AND RUB IN A THIN FILM TO AFFECTED AREAS TWICE DAILY.(AM AND PM). Fluconazole 100 MG Oral Tabletone by mouth daily I (more content not included)... Normal [facility] CORONAVIRUS 2018, SCREEN ASY MPTOMATICon 12-20-2021 Lab Specimen Source Nasal, Nasopharyngeal Normal [facility] Comment on above: Order Comment: TEST CORONAVIRUS 2018, SCREEN ASYMPTOMATIC WAS CANCELLED, 01/15/2022 11:50 Updated order placed for STAT test. Performed By: #### C OVSC #### [facility] [address] [place] [address] IO UA (automated w/o microsc opy)on 12-18-2021 Protein (U) [Mass/Vol] Negative VH-Mjonsng-Og [place] [address] Work Phone: IO UA (automated w/o microscopy) (+)small - 15 RU-Lxspyte-Zg [place] [address] Work Phone: IO UA (automated w/o microscopy) Negative ZY-Iubkszu-[place]q [place] [address] Work Phone: IO UA (automated w/o microscopy) Normal (0.2-1.0 mg/dl) MG-Urolog y-We [place] [address] Work Phone: IO UA (automated w/o microscopy) 8.0 1 MG[facility] Work Phone: IO UA (automated w/o microscopy) Trace QQ-Vidvamc-Vg [place] [address] Work Phone: IO UA (automated w/o microscopy) 1.025 1 AX-Jtdaatw-Mw [place] [address] Work Phone: IO UA (automated w/o microscopy) Clear IU-Ptowxei-Ct [place] [address] Work Phone: IO UA (automated w/o microscopy) Yellow EO-Rhubmmt-At [place] [facility] [address] Work Phone: IO Ultrasound, measurement p ost-void resid urine and/or bl cap; no imagon 12-18-2021 IO Ultrasound, measurement post-void resid urine and/or bl cap; no imag 5 mL [place] [address] Work Phone: Office Visit (Urology)on Follow-up visit Diagnoses/Problems Assessed Kidney stones (592.0) (N20.0) Renal colic (788.0) (N23) Right flank pain (789.09) (R10.9) Orders Hematuria IO Ultrasound, measurement post-void resid urine and/or bl cap; no imag; Status:Complete; Done: [id number] 08:17AM Performed:In Office; Due:13Gfu6933;Ordered; For:Hematuria; Ordered By:Arleth Sanz; Kidney stones IO UA (automated w/o microscopy); Status:Complete; Done: 51Xju7131 08:22AM Performed:In Office; Due:74Hkw9623;Ordered; For:Kidney stones; Ordered By:Arleth Sanz; Renal colic, Right flank pain Start: Ketorolac Tromethamine 10 MG Oral Tablet; TAKE 1 TABLET EVERY 6 HOURS WITH FOOD Rx By: Arleth Sanz; Dispense: 5 Days ; #:20 Tablet; Refill: 0;For: Renal colic, Right flank pain; NILSON = N; Verified Transmission to [facility] [address]; Last Updated By: Amelia Longoria; 12/18/2021 8:45:56 AM Patient Discussion/Summary 41-year-old female who presents for evaluation of intermittent right flank pain. CT scan identified nonobstructing 5 mm stone. Her symptoms are consistent with intermittent obstruction. She was unable to tolerate tamsulosin. We discussed further management including observation versus consideration of intervention. Patient travels frequently with her daughter and would like to proceed with treatment of the stone as she is worried about having severe pain and an attack while out of town. She was given a prescription for Toradol with instructions not to use in conjunction with meloxicam. If pain becomes severe she will consider restarting tamsulosin or may contact the office and we could consider alfuzosin or Rapaflo as an alternative. I will arrange for her to have a telehealth visit in the near future with Dr. Karimi and we will schedule her preemptively for stone treatment in January with Dr. Karimi. Patient verbalized understanding of plan and is in agreement Provider Impressions PMH, PSH, FH, and SH reviewed Chief Complaint Kidney Stones History of Present [id number] female who presents for evaluation of nephrolithiasis, . Patient developed severe intermittent right flank pain for 10 days beginning at the end of Nov. She states at this time the right flank is achy. Initially she developed severe flank pain when she did not urinate for 5-6 hours, Which resolved when she urinated. She saw PCP and underwent CT scan which identified 5 mm nonobstructing right stone. No other stones were identified in either kidney. Denies dysuria and gross hematuria. Patient drinks 2 cups of coffee daily and significant amounts of water. Occasional alcohol, up to 1/week. Patient with strong family history of of nephrolithiasis. Patient denies previous personal history of stones. Patient was given tamsulosin for 2 days with significant somnolence and fatigue, Therefore she discontinued. She has a history of a significant injury to her right leg and takes meloxicam as well as Tylenol intermittently. She states this really does not seem to have any effect on her flank pain. Review of Systems Constitutional: no fever, no chills and not feeling poorly. Eyes: no eyesight problems. ENT: no hearing loss, no nosebleeds and no sore throat. Cardiovascular: no chest pain, no palpitations and no lower extremity edema. Respiratory: no shortness of breath, no wheezing, no cough and no shortness of breath during exertion. Gastrointestinal: no abdominal pain, no constipation, no heartburn, no diarrhea, no vomiting and no blood in stools. Genitourinary: no dysuria, no incontinence, normal micturition, no pelvic pain, no vaginal discharge and as noted in HPI. Musculoskeletal: no arthralgias and no gait abnormality. Integumentary: no skin lesions, no change in a mole and no skin wound. Neurological: no confusion, no dizziness, no fainting and no difficulty walking. Psychiatric: not suicidal, no anxiety and no depression. All other systems have been reviewed and are negative for complaint. Active Problems Problems Adjustment disorder with mixed anxiety and depressed mood (309.28) (F43.23) Avascular necrosis of right talus (733.44) (M87.071) Back pain (724.5) (M54.9) Benign essential hypertension (401.1) (I10) Body mass index (BMI) of 50.0 to 59.9 in adult (V85.43) (Z68.43) Candidiasis, intertrigo (112.3) (B37.2) Depression (311) (F32.A) Added by Problem List Migration; 2013-10-13 Exposure to influenza (V01.79) (Z20.828) Fatigue (780.79) (R53.83) Added by Problem List Migration; 2013-10-13 Foreign body in foot (917.6) (S90.859A) Hematuria (599.70) (R31.9) Hip injury, left, initial encounter (959.6) (S79.912A) History of ankle surgery (V45.89) (Z98.890) Morbid obesity with BMI of 50.0-59.9, adult (278.01,V85.43) (E66.01,Z68.43) Pharyngitis, acute (462) (J02.9) Preoperative clearance (V72.84) (Z01.818) Renal colic (788.0) (N23) Right flank pain (789.09) (R10.9) Sinus congestion (478.19) (R09.81) Sore throat (462) (J02. (more content not included)... Normal [facility] Tobacco Screening.on 022 Fall risk assessment a) No falls within the last year [place] [address] Work Phone: Tobacco use status [facility]PH[facility] b) No RP-Zcqaudr-Xb [place] [address] Work Phone: Cult, Urineon 12-11-2021 Bacteria identified Cx Nom (U[facility] Work Phone: IO UA (automated w/o microsc opy)on 12-11-2021 Protein (U) [Mass/Vol] Negative Normal [facility] [employer] Work Phone: IO UA (automated w/o microscopy) (+)small - 15 Abnormal [facility] [employer] Work Phone: IO UA (automated w/o microscopy) Negative Normal [facility] [employer] Work Phone: IO UA (automated w/o microscopy) Normal (0.2-1.0 mg/dl) Normal [facility] [employer] Work Phone: IO UA (automated w/o microscopy) 6.0 1 [facility] [employer] Work Phone: IO UA (automated w/o microscopy) (++)moderate - 40 Abnormal [facility] [employer] Work Phone: IO UA (automated w/o microscopy) 1.020 1 [facility] [employer] Work Phone: IO UA (automated w/o microscopy) Hazy [facility] [employer] Work Phone: IO UA (automated w/o microscopy) Soila [facility] [employer] Work Phone: Office Visit ([facility] e)on 12-11-2021 Follow-up visit Diagnoses/Problems Right flank pain (789.09) (R10.9) Hematuria (599.70) (R31.9) Renal colic (788.0) (N23) Morbid obesity with BMI of 50.0-59.9, adult (278.01,V85.43) (E66.01,Z68.43) Orders Hematuria Start: Ciprofloxacin HCl - 500 MG Oral Tablet; one by mouth twice a day for 7 days Cult, Urine; Status:Resulted - Requires Verification,Retrospective Authorization; Done: [id number] 04:31PM Start: Ibuprofen 800 MG Oral Tablet; TAKE 1 TABLET EVERY 8 HOURS WITH FOOD NEEDED Start: Tamsulosin HCl - 0.4 MG Oral Capsule (Flomax); TAKE 1 CAPSULE Daily Hematuria, Renal colic, Right flank pain CT Abdomen and Pelvis without Contrast; Status:Hold For - Scheduling; Requested for:11Dec2021; Patient taking Metformin or Derivatives? : No Radiologist to Determine Optimal Study : Y What are the patient's signs and symptoms? : Right-sided flank pain worse after urinating moderate blood in urine rule out kidney stone Right flank pain IO UA (automated w/o microscopy); Status:Resulted - Requires Verification,Retrospective Authorization; Done: 11Dec2021 12:37PM Patient Discussion/Summary Urine test in office today showed some blood consistent with a kidney stone Urine sample sent for culture Stat CT scan Begin taking 500 mg Cipro Begin taking 800 mg of Ibuprofen Begin taking 0.4 mg Flomax Drink plenty of water Filter urine Follow up if symptoms don't improve Further plan pending CT results We will consult urology if no improvement Above normal BMI nutrition and physical activity reviewed Provider Impressions By signing my name below, I, Cynthia Lofton, Shaunna, attest that this documentation has been prepared under the direction and in the presence of Dr. Hetal Alonso. Cynthia Lofton 12/11/21 Chief Complaint possible kidney stone. Adult Risk Screening Initial Fall Risk Screening: SERA has not fallen in the last 6 months. Tobacco Screening: SERA does not use tobacco. Blood Pressure monitoring Blood Pressure Controlled, Systolic <130 mm Hg Blood Pressure Controlled, Diastolic 80-89mm Hg Depression/Suicide Screening: During the past 2 weeks, the patient has not felt down, depressed or hopeless. During the past 2 weeks, the patient has not felt little interest or pleasure in doing things. She does not have a risk of suicide. She has not had thoughts of harming others. History of Present Illness Patient is a 41 y/o female who presents here today for evaluation of possible kidney stone. She has a history of chronic back pain. She complains of back pain on the right side after she urinates; symptoms have been present for 2-3 days and begin 5 minutes after she urinates. Pain lasts for 2 hours. Patient denies dysuria, nausea, hematuria, mucus or smith material. Patient is using a cane today. She states her foot has not improved since last office visit. She states she will have another scan soon. She reports she takes medication once a week for right ankle pain. Review of Systems Constitutional: no chills, no fever and no night sweats. Eyes: no blurred vision and no eyesight problems. ENT: no hearing loss, no nasal congestion, no nasal discharge, no hoarseness and no sore throat. Neck: no mass(es) and no swelling. Cardiovascular: no chest pain, no intermittent leg claudication, no lower extremity edema, no palpitations and no syncope. Respiratory: no cough, no shortness of breath during exertion, no shortness of breath at rest and no wheezing. Gastrointestinal: no abdominal pain, no blood in stools, no constipation, no diarrhea, no melena, no nausea, no rectal pain and no vomiting. Genitourinary: as noted in HPI, no dysuria, no change in urinary frequency, no urinary hesitancy, no feelings of urinary urgency and no vaginal discharge. Musculoskeletal: as noted in HPI, no arthralgias, no back pain and no myalgias. Integumentary: no new skin lesions and no rashes. Neurological: no difficulty walking, no headache, no limb weakness, no numbness and no tingling. Psychiatric: no anxiety, no depression, no anhedonia and no substance use disorders. Endocrine: no recent weight gain and no recent weight loss. Hematologic/Lymphatic: no tendency for easy bruising and no swollen glands. Active Problems Adjustment disorder with mixed anxiety and depressed mood (309.28) (F43.23) Avascular necrosis of right talus (733.44) (M87.071) Back pain (724.5) (M54.9) Benign essential hypertension (401.1) (I10) Body mass index (BMI) of 50.0 to 59.9 in adult (V85.43) (Z68.43) Candidiasis, intertrigo (112.3) (B37.2) Depression (311) (F32.A) Added by Problem List Migration; 2013-10-13 Exposure to influenza (V01.79) (Z20.828) Fatigue (780.79) (R53.83) Added by Problem List Migration; 2013-10-13 Foreign body in foot (917.6) (S90.859A) Hip injury, left, initial encounter (959.6) (S79.918H) History of ankle surgery (V45.89) (Z98.890) Pharyngitis, acute (462) (J02.9) Preoperative cl (more content not included)... Normal [facility] Radiologyon 12-11-2021 CT Abdomen and Pelvis WO contrast Normal -[facility] Work Phone: URINE CULTURE,BACTERIALon URINE CULTURE,BACTERIAL PATIENT: SERA WOO [place] [facility] [id number] : 76 AGE: SEX: F ORDERED BY: HETAL ALONSO SOURCE: URINE COLLECTED: 12/11/21 16:31 ANTIBIOTICS AT [facility].: RECEIVED : 12/12/21 00:54 SITE: Clean Catch/Voided R E S U L T S URINE CULTURE,BACTERIAL FINAL 12/12/21 17:23 NO SIGNIFICANT GROWTH. Normal [facility] Comment on above: Performed By: #### U RINC #### [facility] [address] [place] [address] XR foot RT min 3V*on 021 XR foot RT min 3V* [facility] [place] [address] [place] [id number] XRay Report Signed Patient: Sera Woo MR#: [id number] : 1980 Acct:[id number] Age/Sex: 40 / F ADM Date: 04/04/21 [place] [facility] [place] Type: [facility] CLI Attending Dr: Francia Collazo DPM, MS Ordering Provider: Francia Collazo DPM MS Date of Service: 04/04/21 XR/XR ankle RT min 3V*: M25.571 ([id number]) XR/XR foot RT min 3V*: M79.671 Copies to: Francia Collazo DPM, MS Right ankle and right foot 04/04/2021. CLINICAL DATA: Right ankle and right foot pain and stiffness. RIGHT ANKLE: 3 views of the right ankle were obtained and are compared with a prior study 03/21/2021. There is redemonstration of an artificial talus. This finding appears unchanged in p osition. No acute fracture or dislocation is identified. Mild degenerative changes are seen. No localized soft tissue swelling is noted. RIGHT FOOT FINDINGS: 3 views of the right foot were obtained and are compared with a prior study 02/21/2021. An artificial talus is again noted. Postsurgical changes related to bunionectomy are suspected at the head of the first metatarsal. No acute fracture or dislocation is identified. Mild arthritic changes are seen. There is posterior and plantar calcaneal spurring. No localized soft tissue swelling is visualized. XR/XR ankle RT min 3V* IMPRESSION: Postsurgical changes including an artificial talus. Mild degenerative disease. No acute bony abnormality. Impression dictated by: Mynor Saenz Jr., M.D.04/04/2021 2:40 PM Dictation Location: [place] [address] Transcribed By: [facility] 04/04/21 1440 Dictated By: Mynor Saenz Jr, MD 04/04/21 1414 Signed By: 04/04/21 1440 Normal [facility] XR ankle RT min 3V*on 2020 XR ankle RT min 3V* [facility] [place] [address] [place] [address] XRay Report Signed Patient: Sera Woo MR#: [id number] 73 : 1980 Acct:[id number] Age/Sex: 40 / F ADM Date: 03/21/21 [place] [facility] [place] Type: [facility] CLI Attending Dr: Francia Collazo DPM, MS Ordering Provider: Francia Collazo DPM, MS Date of Service: 03/21/21 XR/XR ankle RT min 3V*: M25.571 Copies to: Francia Collazo DPM, MS RIGHT ANKLE - 3 views CLINICAL DATA: Follow-up after ankle joint replacement. Ankle pain and stiffness COMPARISON: 02/21/2021 AP, lateral and oblique views were obtained. A prosthetic talus is again visualized, unchanged in position. There is osteopenia. There is no acute fracture or dislocation calcaneal spurs are noted. There is diffuse soft tissue swelling. XR/XR ankle RT min 3V* IMPRESSION: STABLE APPEARANCE OF THE ANKLE. NO ACUTE FINDINGS. Impression dictated by: Chelsey Bobo M.D.03/21/2021 11:41 AM Dictation Location: [place] [address] Transcribed By: [facility] 03/21/21 1141 Dictated By: Chelsey Bobo MD 03/21/21 1139 Signed By: 03/21/21 1141 Normal [facility] XR ankle RT min 3V*on 2020 XR ankle RT min 3V* [facility] [place] [address] [place] [address] XRay Report Signed Patient: Sera Woo MR#: [id number] 73 : 1980 Acct:[id number] Age/Sex: 40 / F ADM Date: 02/21/21 [place] [facility] [place]: Type: [facility] Attending Dr: Francia Collazo DPM, MS Ordering Provider: Francia Collazo DPM, MS Date of Service: 02/21/21 XR/XR ankle RT min 3V*: M25.571 ([id number]) XR/XR foot RT min 3V*: M79.671 Copies to: Frnacia Collazo DPM, MS CLINICAL DATA: Ankle stiffness and generalized foot pain. History of artificial talus. RIGHT ANKLE - 3 VIEWS COMPARISON: None AP, lateral and oblique views of the right ankle with simulated weight bearing were obtained. There is a talar prosthesis. No acute fractures or dislocation are identified. A chronic-appearing bony ossicle is seen along the anterior edge of the distal tibia. There is mild diffuse soft tissue swelling. XR/XR foot RT min 3V* IMPRESSION: NO ACUTE BONY FINDINGS. ARTIFICIAL TALUS. RIGHT FOOT - 3 views COMPARISON: None AP, lateral and oblique views were obtained. There is a prosthetic talus. There is deformity at the distal first metatarsal. Correlation is recommended as to whether is been prior bunionectomy. This might also be degenerative. There is no acute fracture or dislocation. Posterior and plantar calcaneal spurs are visualized. There are no significant soft tissue abnormalities. IMPRESSION: POSTOPERATIVE AND DEGENERATIVE CHANGES. NO ACUTE BONY FINDINGS. Impression dictated by: Chelsey Bobo M.D.02/21/2021 12:11 PM Dictation Location: [place] [address] Transcribed By: [facility] 02/21/21 1211 Dictated By: Chelsey Bobo MD 02/21/21 1207 Signed By: 02/21/21 1211 [facility] Initial Visit (Orthopaedic S urgery)on 10-10-2020 Initial Visit (Orthopaedic Surgery) Patient Discussion/Summary We have discussed your treatment options, risks and benefits and surgery for your condition was selected and recommended. You will have to be tested for covid 19 48-72 hours prior to surgery. task force will call you to help you get your test done. Please do not eat, drink, or chew anything after midnight the night before your surgery. Please call Pamela Dias at [phone] to schedule your surgery and if you have any further questions. Chief Complaint Pt here for right ankle pain. /tc History of Present [id number] woman who presents today for evaluation of her right ankle and foot pain that started on 04/12/2020 when she unfortunately fell off of a ladder and sustained a severe lateral talus dislocation. Dislocation was irreducible closed and so the patient had to be taken urgently to the operating room at outside facility for open reduction of the dislocation. She was originally nonweightbearing and was doing well and starting to progress to weightbearing and did therapy for over 30 sessions. She was doing well until August and then started developing more severe pain and swelling. She has burning pain also over the dorsal foot dorsal lateral foot and anteromedial medial ankle area. Now she states she cannot tolerate more than 5 minutes of standing or walking at a time due to the pain. 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 She takes [place] nightly and Advil throughout the day but still states that her pain remains quite high. Past medical history of morbid obesity Past surgical history of open reduction of the talus right foot 04/12/[address] [facility] Dr. Duran Family history noncontributory to presenting problem Social history non-smoker Medications include control pill, Advil and [place] REVIEW OF SYSTEMS Constitutional: no unplanned weight loss Psychiatric: no suicidal ideation ENT: no vision changes, no sinus problems Pulmonary: no shortness of breath during office visit today Lymphatic: no enlarged lymph nodes Cardiovascular: no chest pain or shortness of breath during office visit today Gastrointestinal: no stomach problems Genitourinary: no dysuria Skin: no rashes Endocrine: no thyroid problems Neurological: no headache, no numbness Hematological: no easy bruising Musculoskeletal: limb pain, limb swelling PHYSICAL EXAMINATION Constitutional Exam: patient's height and weight reviewed, well-kempt Psychiatric Exam: alert and oriented x 3, appropriate mood and behavior Eye Exam: DARWIN, EOMI Pulmonary Exam: breathing non-labored, no apparent distress Lymphatic exam: no appreciable lymphadenopathy in the lower extremities Cardiovascular exam: DP pulses 2+ bilaterally, PT 2+ bilaterally, toes are pink with good capillary refill, no pitting edema Skin exam: no open lesions, rashes, abrasions or ulcerations Neurological exam: sensation to light touch intact in both lower extremities in peripheral and dermatomal distributions (except for dysesthesias and decreased sensation over the anterior medial ankle and dorsal lateral and dorsal foot on the right) Musculoskeletal exam: Right foot and ankle: Tender palpation across the ankle anteriorly and also across the talus and across the subtalar joints on palpation, some motion remains in the ankle but some limitation present, subtalar joint painful with motion and some stiffness noted, stable ligamentous exam, motor intact but mild calf atrophy DATA/RESULTS REVIEW I personally reviewed the patient's x-ray images and reports of the right foot brought by a disc from outside facility include only AP and lateral of the right foot with some issues on exposure that shows talus with possible sclerosis. DATA/RESULTS REVIEW I personally reviewed the patient's MRI images and reports of the right ankle show significant talar avascular necrosis involving talar dome and posterior talus particularly medially with no specific surrounding marrow edema and minimal collapse, chondromalacia and loss of cartilage thickness noted, other findings noted in the reports are not clinically significant as she does not have pain or issues there. Assessment: Right foot and ankle status post total lateral talar dislocation with subsequent frequent developments of avascular necrosis with cartilage damage both the ankle joint and subtalar joint levels, history of morbid obesity, tendinitis as consequence of injury Plan: I discussed with the patient the differential diagnosis, complex nature of the condition(s) and available treatment option(s). The patient states that she wants to be very active in the future including hiking and playing with her 3 kids. I discussed with her that this injury is a life altering injury and that most likely we can improve function but we will never be able to make her foot and ankle normal as the left side is. Walking and hiking is still a possibility but she may have to adjust intensity and amount of those activities as they are higher impact. She sustained a severe injury which caused disruption of blood flow to the talus. Unfortunately her weight also does play a role as it does stress those joints even further. We discussed options with respect to her significant talar avascular necrosis treatment since her pain is progressing despite a full course of conservative treatments. Options would be tibiotalar calcaneal fusion, total talar replacements, amputation, talectomy. We discussed with her at length that we do not have a great solution for this significant problem with respect to returning full function. In light of her injury severity, MRI findings, comorbidities and our opinion the best option would be tibiotalocalcaneal fusion with bone grafting.. This will give her a stable ankle and subtalar joints. I explained what the fusion would entail and what motion would be left in the foot which would be that through the arch only. She would not have ankle or subtalar joint range of motion and so I demonstrated what motion she will have left after the fusion successfully heals. Fusion will have to be utilizing a hindfoot fusion nail. Other options including a 3D printed talar replacements are experimental and I do not particularly recommend them. However she is seeing a specialist who has done 20 or so of those cases and so I would recommend she go ahead and see that additional opinion as the may have different opinion on success of that type of interposition Talar replacement. I discussed with her that after fusion surgery she would have to be nonweightbearing for 2 to 3 months followed by using boot followed by likely a shoe with a rocker-bottom type sole which will assist with walking plus or minus insert. It can take up to 9 months to a year to get her endurance back to do walking type activities. Nonunion can occur and we discussed risks of the surgery in detail. She would have to be admitted overnight and also be on anticoagulation after surgery as she is at higher risk for DVT and PE due to her medical comorbidities and her being on control pills. We discussed pain control as she cannot tolerate oxycodone or Percocet. She does do well with [place] and Dilaudid. We discussed with her that she will have to stay in the hospital least overnight and possibly a drain may need to be placed which we would remove before she would be discharged home. She is comfortable with nonweightbearing restriction and use of crutches as she has done that previously without a problem. She will let us know when she makes her final decision on what procedure she would like to have done after she gets her additional consults. She will have to be cleared medically. I also went through the incision locations and reviewed with her why we do a fibular osteotomy with removing a section of the fibula to allow for appropriate compression across the tibial talocalcaneal fusion. I discussed with patient the procedure in detail, risks and benefits of procedure, post-op protocol, anesthetic used with possible regional block, timeline of recovery, need for protective weightbearing and/or bracing after procedure, pain management protocol, DVT prophylaxis protocol, home preparation suggestions, pre-op surgery preparation, and other pertinent information. Discussed with the patient the following regarding COVID-19. WIth all surgery, the patient understands that the risk is never zero. Discussed that if they get COVID19 around surgery or already have COVID19, then they are at risk of increased complications including pneumonia which may require ventilator use. Other risks include need for dialysis, shock, and up to deathl Discussed with patient that we are doing everything possible to minimize risk of being infected with COVID19, including screening and testing when necessary, and have taken additional steps to keep them safe. The patient voiced understanding of the increased risks with respect to COVID , and other risks and benefits of surgery. They would like to proceed with surgery. Please refer to the discussion section below for further treatment details and plan. The patient's questions were answered in detail. She also is having some depression symptoms that she reports which is not uncommon after such a devastating injury. She has no suicidal ideation. I discussed with her that it would be helpful if she reached out to her PCP to begin discussion on whether any medicine treatment would be helpful. This would aid her recovery. Patient voiced understanding and agreement. Note dictated with ProtoStarnurse companion software, completed without full type editing to avoid delay. Vitals Vital Signs Recorded: [id number] 05:30PM Height5 ft 5 in [id number] lb BMI Iiuwlrojkp60.93 BSA Calculated2.31 Signatures Electronically signed by : Ebony Shah MD; Oct 10 2020 5:36PM EST (Author) Normal [facility] Vital Signs Date Time Vital Sign Value Performing Clinician Facility 10-21-2023 13:20-0500 Diastolic blood pressure 80 mm[Hg] Hetal Alonso MD Work Phone: [facility] 10-21-2023 13:20-0500 Systolic blood pressure 130 mm[Hg] Hetal Alonso MD Work Phone: [facility] 10-21-2023 13:05-0500 Body height 167.6 cm Hetal Alonso MD Work Phone: [facility] 10-21-2023 13:05-0500 Body mass index (BMI) [Ratio] 53.75 kg/m2 Hetal Alonso MD Work Phone: [facility] 10-21-2023 13:05-0500 Body temperature 98.2 [degF] Hetal Alonso MD Work Phone: [facility] 10-21-2023 13:05-0500 Body weight 151.05 kg Hetal Alonso MD Work Phone: [facility] 10-21-2023 13:05-0500 Heart rate 92 /min Hetal Alonso MD Work Phone: [facility] 10-21-2023 13:05-0500 SaO2% (BldA) [Mass fraction] 96 % Hetal Alonso MD Work Phone: [facility] 06-28-2023 11:54-0400 Diastolic blood pressure 80 mm[Hg] Hetal Alonso MD Work Phone: [facility] 06-28-2023 11:54-0400 Systolic blood pressure 130 mm[Hg] Hetal Alonso MD Work Phone: [facility] 06-28-2023 11:08-0400 Body mass index (BMI) [Ratio] 51.81 kg/m2 Hetal Alonso MD Work Phone: [facility] 06-28-2023 11:08-0400 Body temperature 97.81 [degF] Hetal Alonso MD Work Phone: [facility] 06-28-2023 11:08-0400 Body weight 145.6 kg Hetal Alonso MD Work Phone: [facility] 06-28-2023 11:08-0400 Heart rate 94 /min Hetal Alonso MD Work Phone: [facility] 04-29-2023 10:45-0400 Body height 165.1 cm Evan Feliciano Other [employer] Other 04-29-2023 10:45-0400 Diastolic blood pressure 80 mm[Hg] Evan Feliciano Other [employer] Other 04-29-2023 10:45-0400 SaO2% (BldA) [Mass fraction] 98 % Evantammie Feliciano Other [employer] Other 04-29-2023 10:45-0400 Systolic blood pressure 140 mm[Hg] Evan Feliciano Other [employer] Other 04-05-2023 10:00-0400 Body weight 140.62 kg Evan Feliciano Other [employer] Other 04-05-2023 10:00-0400 SaO2% (BldA) [Mass fraction] 98 % Evantammie Feliciano Other [employer] Other 09-11-2022 10:28-0500 Body height 167.64 cm Hetal Alonso Work Phone: [facility] Work Phone: 09-11-2022 10:28-0500 Body mass index (BMI) [Ratio] 43.74 kg/m2 Hetal Alonso Work Phone: [facility] Work Phone: 09-11-2022 10:28-0500 Body surface area Derived from formula 2.28 m2 Hetal Alonso Work Phone: [facility] Work Phone: 09-11-2022 10:28-0500 Body temperature 96.9 [degF] Hetal Alonso Work Phone: [facility] Work Phone: 09-11-2022 10:28-0500 Body weight 122.93 kg Hetal Alonso Work Phone: [facility] Work Phone: 09-11-2022 10:28-0500 Diastolic blood pressure 76 mm[Hg] Hetal Alonso Work Phone: [facility] Work Phone: 09-11-2022 10:28-0500 Heart rate 79 /min Hetal Alonso Work Phone: [facility] Work Phone: 09-11-2022 10:28-0500 SaO2% (BldA) [Mass fraction] 100 % Hetal Alonso Work Phone: [facility] Work Phone: 09-11-2022 10:28-0500 Systolic blood pressure 124 mm[Hg] Hetal Alonso Work Phone: [facility] Work Phone: 08-20-2022 09:28-0400 Body height 167.64 cm Hetal Alonso Work Phone: [facility] Work Phone: 08-20-2022 09:28-0400 Body mass index (BMI) [Ratio] 43.9 kg/m2 Hetal Alonso Work Phone: [facility] Work Phone: 08-20-2022 09:28-0400 Body surface area Derived from formula 2.28 m2 Hetal Alonso Work Phone: [facility] Work Phone: 08-20-2022 09:28-0400 Body temperature 96.9 [degF] Hetal Alonso Work Phone: [facility] Work Phone: 08-20-2022 09:28-0400 Body weight 123.38 kg Hetal Alonso Work Phone: [facility] Work Phone: 08-20-2022 09:28-0400 Diastolic blood pressure 72 mm[Hg] Hetal Alonso Work Phone: [facility] Work Phone: 08-20-2022 09:28-0400 Heart rate 78 /min Hetal Alonso Work Phone: [facility] Work Phone: 08-20-2022 09:28-0400 SaO2% (BldA) [Mass fraction] 99 % Hetal Alonso Work Phone: [facility] Work Phone: 08-20-2022 09:28-0400 Systolic blood pressure 124 mm[Hg] Hetal Alonso Work Phone: [facility] Work Phone: 07-18-2022 09:42-0400 Body height 167.64 cm Hetal Alonso Work Phone: [facility] Work Phone: 07-18-2022 09:42-0400 Body mass index (BMI) [Ratio] 44.87 kg/m2 Hetal Alonso Work Phone: [facility] Work Phone: 07-18-2022 09:42-0400 Body surface area Derived from formula 2.3 m2 Hetal Alonso Work Phone: [facility] Work Phone: 07-18-2022 09:42-0400 Body weight 126.1 kg Hetal Alonso Work Phone: [facility] Work Phone: 07-18-2022 09:42-0400 Diastolic blood pressure 72 mm[Hg] Hetal Alonso Work Phone: [facility] Work Phone: 07-18-2022 09:42-0400 Heart rate 97 /min Hetal Alonso Work Phone: [facility] Work Phone: 07-18-2022 09:42-0400 SaO2% (BldA) [Mass fraction] 99 % Hetal Alonso Work Phone: [facility] Work Phone: 07-18-2022 09:42-0400 Systolic blood pressure 118 mm[Hg] Hetal Alonso Work Phone: [facility] Work Phone: 12-18-2021 08:10-0500 Body height 167.64 cm Hetal Alonso Work Phone: [facility] [id number] Work Phone: 12-18-2021 08:10-0500 Body mass index (BMI) [Ratio] 51.65 kg/m2 Hetal Alonso Work Phone: MF-Vqlykva-Erenydyi [facility] [id number] Work Phone: 12-18-2021 08:10-0500 Body surface area Derived from formula 2.44 m2 Hetal Alonso Work Phone: DF-Jtzkorc-Oazudisx [facility] [id number] Work Phone: 12-18-2021 08:10-0500 Body temperature 96.9 [degF] Hetal Alonso Work Phone: BC-Vxsktil-Rizcwbkz [facility] [id number] Work Phone: 12-18-2021 08:10-0500 Body weight 145.15 kg Hetal Alonso Work Phone: ND-Jigjoid-Qjfeeror [facility] [id number] Work Phone: 12-18-2021 08:10-0500 Diastolic blood pressure 99 mm[Hg] Hetal Alonso Work Phone: JA-Zorfmbz-Livgjuzm [facility] [id number] Work Phone: 12-18-2021 08:10-0500 Heart rate 106 /min Hetal Alonso Work Phone: ZA-Tdlqzqe-Rmzrjzkz [facility] [id number] Work Phone: 12-18-2021 08:10-0500 Systolic blood pressure 155 mm[Hg] Hetal Alonso Work Phone: CO-Cxknojn-Wjiullfz [facility] [id number] Work Phone: 12-11-2021 12:24-0500 Body height 167.64 cm Hetal Alonso Work Phone: [facility] Work Phone: 12-11-2021 12:24-0500 Body mass index (BMI) [Ratio] 51.65 kg/m2 Hetal Alonso Work Phone: [facility] Work Phone: 12-11-2021 12:24-0500 Body surface area Derived from formula 2.44 m2 Hetal Alonso Work Phone: [facility] Work Phone: 12-11-2021 12:24-0500 Body temperature 98.3 [degF] Hetal Alonso Work Phone: [facility] Work Phone: 12-11-2021 12:24-0500 Body weight 145.15 kg Hetal Alonso Work Phone: [facility] Work Phone: 12-11-2021 12:24-0500 Diastolic blood pressure 80 mm[Hg] Hetal Alonso Work Phone: [facility] Work Phone: 12-11-2021 12:24-0500 Heart rate 80 /min Hetal Alonso Work Phone: [facility] Work Phone: 12-11-2021 12:24-0500 Systolic blood pressure 120 mm[Hg] Hetal Alonso Work Phone: [facility] Work Phone: 08-11-2021 15:04-0400 Body height 167.64 cm Hetal Alonso Work Phone: [facility] Work Phone: 08-11-2021 15:04-0400 Body mass index (BMI) [Ratio] 51.65 kg/m2 Hetal Alonso Work Phone: [facility] Work Phone: 08-11-2021 15:04-0400 Body surface area Derived from formula 2.44 m2 Hetal Alonso Work Phone: [facility] Work Phone: 08-11-2021 15:04-0400 Body temperature 98.8 [degF] Hetal Alonso Work Phone: [facility] Work Phone: 08-11-2021 15:04-0400 Body weight 145.15 kg Hetal Alonso Work Phone: [facility] Work Phone: 08-11-2021 15:04-0400 Diastolic blood pressure 78 mm[Hg] Hetal Alonso Work Phone: [facility] Work Phone: 08-11-2021 15:04-0400 Heart rate 108 /min Hetal Alonso Work Phone: [facility] Work Phone: 08-11-2021 15:04-0400 Heart rate 80 /min Hetal Alonso Work Phone: [facility] Work Phone: 08-11-2021 15:04-0400 Systolic blood pressure 142 mm[Hg] Hetal Alonso Work Phone: [facility] Work Phone: 08-11-2021 15:04-0400 Systolic blood pressure 130 mm[Hg] Hetal Alonso Work Phone: [facility] Work Phone: 03-24-2021 09:41-0400 Body mass index (BMI) [Ratio] 52.13 kg/m2 Hetal Alonso Work Phone: [facility] Work Phone: 03-24-2021 09:41-0400 Body surface area Derived from formula 2.45 m2 Hetal Alonso Work Phone: [facility] Work Phone: 03-24-2021 09:41-0400 Body temperature 97.7 [degF] Hetal Alonso Work Phone: [facility] Work Phone: 03-24-2021 09:41-0400 Body weight 146.51 kg Hetal Alonso Work Phone: [facility] Work Phone: 03-24-2021 09:41-0400 Diastolic blood pressure 86 mm[Hg] Hetal Alonso Work Phone: [facility] Work Phone: 03-24-2021 09:41-0400 Heart rate 64 /min Hetal Alonso Work Phone: [facility] Work Phone: 03-24-2021 09:41-0400 Systolic blood pressure 152 mm[Hg] Hetal Alonso Work Phone: [facility] Work Phone: Encounters Encounter Date Encounter Type Care Provider Facility Start: 10-21-2023 End: 10-22-2023 ambulatory HETAL ALONSO MD Facility:[id number] Start: 10-21-2023 End: 10-21-2023 ambulatory [facility] Start: 10-21-2023 End: 10-21-2023 Office outpatient visit 15 minutes Hetal Alonso MD Work Phone: [facility] Comment on above: Bronchitis (Primary Dx) Start: 07-18-2023 End: 07-18-2023 ambulatory DEWAYNE GARRISON MD Facility:[facility] Start: 06-28-2023 End: 06-28-2023 ambulatory [facility] Start: 06-28-2023 End: 06-28-2023 Office outpatient visit 15 minutes Hetal Alonso MD Work Phone: [facility] Comment on above: 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); Benign essential hypertension; Morbid obesity with body mass index (BMI) of 50.0 to 59.9 in adult (CMS/HCC) Start: 05-30-2023 End: 05-30-2023 ambulatory Evan Feliciano Other [employer] Other Start: 05-30-2023 Telephone encounter Evan Feliciano [facility] Start: 05-16-2023 (PROC) PROCEDURE Evan Braden Heriberto Turner [facility] Start: 05-16-2023 End: 05-16-2023 ambulatory Evan Feliciano Other [employer] Other Start: 05-14-2023 End: 05-15-2023 ambulatory [facility] Facility:[facility] Start: 05-09-2023 End: 07-06-2023 ambulatory [facility] Facility:[id number] Start: 05-01-2023 End: 05-01-2023 ambulatory Evan Feliciano Other [employer] Other Start: 05-01-2023 Telephone encounter Evan Feliciano [facility] Start: 04-29-2023 End: 04-29-2023 ambulatory Evan Feliciano Other [employer] Other Start: 04-29-2023 Office outpatient vi sit 25 minutes Evan Feliciano [facility] Start: 04-15-2023 End: 04-16-2023 ambulatory [facility] Facility:[id number] Start: 04-05-2023 End: 04-05-2023 ambulatory Evan Feliciano Other [employer] Other Start: 04-05-2023 Office consultation new/estab patient 60 min Evantammie Feliciano [facility] [place] Start: 04-05-2023 Telephone encounter Evan Feliciano [facility] Start: 03-07-2023 ambulatory [facility] Facility: [id number] Start: 02-25-2023 ambulatory [facility] Start: 02-20-2023 End: 02-21-2023 ambulatory [facility] Facility:H1 Start: 02-06-2023 End: 05-04-2023 ambulatory HETAL ALONSO Facility:[id number] Start: 01-10-2023 End: 01-10-2023 ambulatory FRANCIA COLLAZO Facility:H1 Start: 01-08-2023 Encounter for other preprocedural examination FRANCIA Anderson [facility] Start: 01-08-2023 Encounter for preprocedural cardiovascular examination FRANCIA Anderson [facility] Start: 01-08-2023 Encounter for preprocedural laboratory examination FRANCIA Anderson [facility] Start: 01-08-2023 End: 01-09-2023 ambulatory HETAL ALONSO Facility:[facility] Start: 01-07-2023 End: 01-08-2023 ambulatory FRANCIA COLLAZO Facility:H1 Start: 01-07-2023 End: 01-08-2023 Encounter for preprocedural laboratory examination FRANCIA COLLAZO Facility:H1 Start: 12-19-2022 End: 12-20-2022 ambulatory HETAL ALONSO Facility:[facility] Start: 11-21-2022 End: 11-22-2022 ambulatory FRANCIA COLLAZO Facility:H1 Start: 11-14-2022 End: 11-15-2022 ambulatory FRANCIA COLLAZO Facility:H1 Start: 2022 End: 02-02-2023 ambulatory HETAL ALONSO Facility:[id number] Start: 09-11-2022 Current tobacco non- user cad cap copd pv eliane Alonso Work Phone: [facility] Work Phone: Start: 09-11-[address] HETAL ALONSO Facility:[id number] Start: 08-20-[address] HETAL ALONSO Facility:[id number] Start: 08-20-2022 Current tobacco non- user cad cap copd pv eliane Alonso Work Phone: [facility] Work Phone: Start: 07-25-2022 End: 07-26-2022 ambulatory FRANCIA Justin COLLAZO Facility:H1 Start: 07-18-2022 Current tobacco non- user cad cap copd pv eliane Alonso Work Phone: [facility] Work Phone: Start: 07-18-[address] HETAL ALONSO Facility:[id number] Start: 04-25-2022 End: 04-26-2022 ambulatory FRANCIA [facility] Facility:H1 Start: 03-23-2022 Rx Renewal Hetal turner Work Phone: [facility] Work Phone: Start: 03-14-2022 ambulatory [facility] Faci lity:H1 Start: 01-23-2022 Chart Update Hetal turner Work Phone: [facility]st[facility] 400 DO Work Phone: Start: 01-03-2022 Chart Update Hetal turner Work Phone: FZ-Leyrkrk-Yqzvhvkk [facility] 400 DO Work Phone: Start: 12-28-[address] HETAL ALONSO Facility:[id number] Start: 12-20-2021 AUDIT Hetal turner Work Phone: ZX[facility]Jvqdxbs-Lonnqkiu [facility] 400 DO Work Phone: Start: 12-18-2021 NPV, Provider: Arleth Sanz, Status: Pen, Time: 8:00 AM Hetal Alonso Work Phone: [facility] Work Phone: Start: 12-18-2021 Office outpatient ne w 45 minutes Hetal Alonso Work Phone: YE[facility]Cdsaxbh[facility]Dymmcqqf [facility] [id number] Work Phone: Start: 12-18-[address] HETAL ALONSO Facility:[id number] Start: 12-11-2021 Current tobacco non- user cad cap copd pv dm Hetal Alonso Work Phone: [facility] Work Phone: Start: 12-11-[address] HETAL WEAVER TREVA ALONSO Facility:[id number] Start: 08-11-2021 Current tobacco non- user cad cap copd pv dm Hetal Alonso Work Phone: [facility] Work Phone: Start: 08-11-2021 Patient encounter procedure Hetal Alonso Work Phone: [facility] Work Phone: Start: 03-24-2021 Current tobacco non- user cad cap copd pv dm Hetal Alonso Work Phone: [facility] Work Phone: Preoperative state Hetal choudhury Work Phone: [facility] Work Phone: Procedures Date Procedure Procedure Detail Performing Clinician Ankle Surgery Hetal turner Work Phone: Comment on above: talus; Cholecystectomy Hetal ho Work Phone: Plan of Treatment Date Care Activity Detail Author Start: 2028 Zoster Vaccines (1 o f 2) Zoster Vaccines (1 of 2) [facility] Start: 10-21-2023 End: 10-21-2024 XR Chest 2 Views XR chest 2 views Imaging Routine Bronchitis Expected: 10/21/2023, Expires: 10/21/2024 [facility] Service Area Work Phone: Comment on above: Expected: 10/21/2023 , Expires: 10/21/2024 Start: 07-05-2023 Influenza vaccination Influenza Vacc ine (#1) [facility] Start: 08-20-2022 [facility]UV, Provider: Hetal Alonso, Status: Pen, Time: 8:45 AM [facility], Provider: Hetal Alonso, Status: Pen, Time: 8:45 AM [facility] Work Phone: Start: 01-16-2022 [facility], Provider: Abi Karimi, Status: Pen, Time: 10:[address] [facility], Provider: Abi Karimi, Status: Pen, Time: 10:30 AM [facility]Gvcpqcc-Ewpdegir [facility] 400 DO Work Phone: Start: 12-28-2021 [facility], Provider : Abi Karimi, Status: Pen, Time: 2:30 PM VIRNPVDANIALE, Provider: Abi Karimi, Status: Pen, Time: 2:30 PM EF-Azexucs[facility]Cbncxgwy [facility] [id number] Work Phone: Start: 10-31-2021 COVID-19 Vaccine (4 - Pfizer series) COVID-19 Vaccine (4 - Pfizer series) [facility] Start: 04-21-2021 [facility]UV, Provider: Hetal Alonso, Status: Pen, Time: 2:30 PM [facility], Provider: Hetal Alonso, Status: Pen, Time: 2:30 PM -[facility] Work Phone: Start: 2018 Screening for malign ant neoplasm of breast Mammogram [facility] Start: 2000 DTaP/Tdap/Td Vaccine s (1 - Tdap) DTaP/Tdap/Td Vaccines (1 - Tdap) [facility] Start: 1999 Screening for malign ant neoplasm of cervix [facility] Start: 1996 Diabetes mellitus screening Diabetes Screening [facility] Start: 1996 Hepatitis C screening Hepatitis C [facility] Start: 1979 MMR Vaccines (1 of 1 - Standard series) MMR Vaccines (1 of 1 - Standard series) [facility] Start: 1978 Hepatitis B Vaccines (1 of 3 - 3-dose series) Hepatitis B Vaccines (1 of 3 - 3-dose series) [facility] Start: 1978 HIV screening HIV Screening [facility] Start: 1978 Lipid panel Lipid Panel [facility] Start: 1978 Yearly Adult Physical Yearly Adult P hysical [facility] Immunizations Immunization Date Immunization Notes Care Provider Fa cility 09-05-2021 [employer] COVI D-19 Vacc 30 MCG/0.3ML Intramuscular Suspension [facility]etal K [facility]onso [facility] Work Phone: 02-12-2021 Pfizer-BioNTech COVI D-19 Vacc 30 MCG/0.3ML Intramuscular Suspension Hetal K Alonso [facility] Work Phone: Comment on above: Series: 01-22-2021 Pfizer-BioNT[employer] COVI D-19 Vacc 30 MCG/0.3ML Intramuscular Suspension Hetal Hemal [employer] Work Phone: [facility] Work Phone: Comment on above: Series: Payers Date Payer Category Payer Unknown 1980 Unknown [id number] 2.16. [id number] 1978 Unknown [id number] 2.16. [id number] 1978 Unknown [id number] 2.16. 840.1.491517.3.579.2.356 1978 Unknown [id number] 2.16. 840.1.068736.3.579.2.356 1978 Unknown [id number] 2.16. 840.1.971766.3.579.2.356 1978 Unknown [id number] 2.16. 840.1.428231.3.579.2.356 1978 Unknown [id number] 2.16.84 0.1.453200.3.579.2.593 1978 Unknown [id number] 2.16.84 0.1.417036.3.579.2.593 1978 Unknown [id number] 2.16.84 0.1.947727.3.579.2.593 1978 Unknown [id number] 2.16.84 0.1.676015.3.579.2.593 1978 Unknown [id number] 2.16.84 0.1.494900.3.579.2.593 1978 Unknown [id number] 2.16.84 0.1.331554.3.579.2.593 1978 Unknown [id number] 2.16.84 0.1.307564.3.579.2.593 1978 Unknown [id number] 2.16.84 0.1.025166.3.579.2.593 1978 Unknown [id number] 2.16.8 40.1.635096.3.579.2.159 1978 Unknown [id number] 2.16.8 40.1.033180.3.579.2.159 1978 Unknown [id number] 2.16.8 40.1.782178.3.579.2.159 1978 Unknown [id number] 2.16.8 40.1.526768.3.579.2.159 1978 Unknown [id number] 2.16.8 40.1.581041.3.579.2.159 1978 Unknown [id number] 2.16.8 40.1.625406.3.579.2.159 1978 Unknown [id number] 2.16.8 40.1.453363.3.579.2.159 1978 Unknown [id number] 2.16.8 40.1.207515.3.579.2.1244 1978 Unknown [id number] 2.16.8 40.1.748833.3.579.2.1244 1978 Unknown [id number] 2.16.8 40.1.541254.3.579.2.159 1978 Unknown [id number] 2.16.8 40.1.046226.3.579.2.159 1978 Unknown [id number] 2.16.8 40.1.976557.3.579.2.159 1978 Unknown [id number] 2.16.8 40.1.575107.3.579.2.159 1978 Unknown [id number] 2.16.8 40.1.374636.3.579.2.159 1978 Unknown [id number] 2.16.8 40.1.164428.3.579.2.159 1959 Unknown [id number] Social History Date Type Detail Facility Start: 07-18-2023 End: 10-21-2023 Never a smoker Never a smoker [facility] Work Phone: Start: 07-18-2023 End: 10-21-2023 Sex Assigned At [facility] [employer] Other Start: 06-28-2023 Tobacco smoking status NHIS Never smoked tobacco [facility] Work Phone: Start: 06-28-2023 Tobacco use and exposure Smokeless tobacco non-user [facility] Work Phone: Start: 07-18-2023 End: 11-03-2023 Alcohol intake Current drinker of alcohol (finding) [facility] Work Phone: Start: 1980 Sex Assigned At Not on file [facility] Work Phone: Start: 10-11-2023 End: 10-21-2023 Exposure to SARS-CoV-2 (event) Not sure [facility] Clinical Notes 04-04-2020 to 10-21-2023 Hetal Alonso MD - 10/21/2023 12:15 PM ESTAssessment & Plan Note - Hetal Alonso MD - 07/18/2023 7:51 PM EDTAssessment & Plan Note - Hetal Alonso MD - 07/18/2023 7:51 PM EDT Note Date & Type Note Facility 10-21-2023 Note PROCEDURE: XR CHEST 2 VIEWS HISTORY: COUGH COMPARISON: None FINDINGS: The lungs are clear bilaterally. There is no focal infiltrate, pleural effusion or pneumothorax. The cardiomediastinal contours are unremarkable. There are no acute bony or soft tissue abnormalities. There is no blunting of the costophrenic angles on the lateral view. IMPRESSION: No acute cardiopulmonary process. Electronically signed by: Oliver Infante MD 10/21/2023 02:17 PM EST Technologist: TSR Dictated By: OLIVER INFANTE MD Signed By: OLIVER INFANTE MD Signed Out: 10/21/23 14:17:29 [facility] 10-21-2023 History of Present illness Narrative Subjective Patient ID: Sera Woo is a 42 y.o. female who presents for Sinusitis (Pt is here for sinus infection ). Upper respiratory symptoms 2 weeks duration Getting worse Cough and congestion no fever chills no shortness of breath but harsh cough keeping her awake at night Review of Systems Constitutional: no chills, no fever and no night sweats. Eyes: no blurred vision and no eyesight problems. ENT: no hearing loss, no nasal congestion, no nasal discharge, no hoarseness and no sore throat. Cardiovascular: no chest pain, no intermittent leg claudication, no lower extremity edema, no palpitations and no syncope. Respiratory: no cough, no shortness of breath during exertion, no shortness of breath at rest and no wheezing. Gastrointestinal: no abdominal pain, no blood in stools, no constipation, no diarrhea, no melena, no nausea, no rectal pain and no vomiting. Genitourinary: no dysuria, no change in urinary frequency, no urinary hesitancy, no feelings of urinary urgency and no vaginal discharge. Musculoskeletal: no arthralgias, no back pain and no myalgias. Integumentary: no new skin lesions and no rashes. Neurological: no difficulty walking, no headache, no limb weakness, no numbness and no tingling. Psychiatric: no anxiety, no depression, no anhedonia and no substance use disorders. Endocrine: no recent weight gain and no recent weight loss. Hematologic/Lymphatic: no tendency for easy bruising and no swollen glands . Objective BP 130/80 Pulse 92 Temp 36.8 C (98.2 F) Ht 1.676 m (5' 6 ) Wt (!) 151 kg (333 lb) SpO2 96% BMI 53.75 kg/m Physical Exam The patient appeared well nourished and normally developed. Vital signs as documented. Head exam is unremarkable. No scleral icterus or corneal arcus noted. Pupils are equal round reactive to light extraocular movements are intact no hemorrhages noted on funduscopic exam mouth mucous membranes are moist no exudates ears canals clear TMs are mitchell pearly not injected nose no rhinorrhea or epistaxis Neck is without jugular venous distension, thyromegaly, or carotid bruits. Carotid upstrokes are brisk bilaterally. Lungs are clear to auscultation and percussion. Cardiac exam reveals the PMI to be normally sized and situated. Rhythm is regular. First and second heart sounds normal. No murmurs, rubs or gallops. Abdominal exam reveals normal bowel sounds, no masses, no organomegaly and no aortic enlargement. Extremities are nonedematous and both femoral and pedal pulses are normal. Neurologic exam DTRs are equal bilaterally no focal deficits strength is symmetrical heme lymph no palpable lymph nodes in the neck axilla or groin Nose congestion and cough no accessory muscle use or retractions Assessment/Plan Problem List Items Addressed This Visit Bronchitis - Primary Relevant Medications albuterol (ProAir HFA) 90 mcg/actuation inhaler Other Relevant Orders XR chest 2 views Hetal Alonso MD documented in this encounter [facility] Work Phone: 07-18-2023 Evaluation + Plan note Associated Problem(s): Morbid obesity with body mass index (BMI) of 50.0 to 59.9 in adult ([facility]) Above normal BMI nutrition and physical activity reviewed [facility] Work Phone: 07-18-2023 Miscellaneous Notes Associated Problem(s): Morbid obesity with body mass index (BMI) of 50.0 to 59.9 in adult ([facility]) Above normal BMI nutrition and physical activity reviewed Associated Problem(s): Avascular necrosis of right talus (CMS/HCC) Persistant pain Continue current managment documented in this encounter [facility] Work Phone: 07-18-2023 Evaluation + Plan note Associated Problem(s): Avascular necrosis of right talus (CMS/HCC) Persistant pain Continue current managment [facility] Work Phone: 06-28-2023 History of Present illness Narrative Subjective Patient ID: Sera Woo is a 42 y.o. female who presents for Med Refill. 42 year old here today for follow-up for follow-up hypertension and follow-up of vascular necrosis She is asking for prescription for meloxicam that has helped her like it refilled She is still struggling with this still trying with weight loss but still having a hard time walking blood pressure has been stable no chest pain or shortness of breath no exertional symptoms Her mental health is improving significantly now that she is having surgery and is moving she obviously would like a better outcome with her foot but is doing okay No angina palpitations or syncope for the blood pressure otherwise doing well Hypertension This is a chronic problem. The current episode started more than 1 year ago. The problem is controlled. Pertinent negatives include no anxiety, blurred vision, chest pain, headaches, malaise/fatigue, neck pain, orthopnea, palpitations, peripheral edema, PND, shortness of breath or sweats. There are no associated agents to hypertension. Risk factors for coronary artery disease include dyslipidemia, family history and obesity. Past treatments include calcium channel blockers and ISHA inhibitors. The current treatment provides moderate improvement. There are no compliance problems. There is no history of angina, kidney disease, CAD/NH, CVA, heart failure, left ventricular hypertrophy, PVD or retinopathy. There is no history of chronic renal disease, coarctation of the aorta, hyperaldosteronism, hypercortisolism, hyperparathyroidism, a hypertension causing med, pheochromocytoma, renovascular disease, sleep apnea or a thyroid problem. Review of Systems Constitutional: Negative for malaise/fatigue. Eyes: Negative for blurred vision. Respiratory: Negative for shortness of breath. Cardiovascular: Negative for chest pain, palpitations, orthopnea and PND. Musculoskeletal: Negative for neck pain. Neurological: Negative for headaches. Constitutional: no chills, no fever and no night sweats. Eyes: no blurred vision and no eyesight problems. ENT: no hearing loss, no nasal congestion, no nasal discharge, no hoarseness and no sore throat. Cardiovascular: no chest pain, no intermittent leg claudication, no lower extremity edema, no palpitations and no syncope. Respiratory: no cough, no shortness of breath during exertion, no shortness of breath at rest and no wheezing. Gastrointestinal: no abdominal pain, no blood in stools, no constipation, no diarrhea, no melena, no nausea, no rectal pain and no vomiting. Genitourinary: no dysuria, no change in urinary frequency, no urinary hesitancy, no feelings of urinary urgency and no vaginal discharge. Musculoskeletal: no arthralgias, no back pain and no myalgias. Integumentary: no new skin lesions and no rashes. Neurological: no difficulty walking, no headache, no limb weakness, no numbness and no tingling. Psychiatric: no anxiety, no depression, no anhedonia and no substance use disorders. Endocrine: no recent weight gain and no recent weight loss. Hematologic/Lymphatic: no tendency for easy bruising and no swollen glands . Objective BP 130/80 Pulse 94 Temp 36.6 C (97.8 F) Wt 146 kg (321 lb) BMI 51.81 kg/m Physical Exam The patient appeared well nourished and normally developed. Vital signs as documented. Head exam is unremarkable. No scleral icterus or corneal arcus noted. Pupils are equal round reactive to light extraocular movements are intact no hemorrhages noted on funduscopic exam mouth mucous membranes are moist no exudates ears canals clear TMs are mitchell pearly not injected nose no rhinorrhea or epistaxis Neck is without jugular venous distension, thyromegaly, or carotid bruits. Carotid upstrokes are brisk bilaterally. Lungs are clear to auscultation and percussion. Cardiac exam reveals the PMI to be normally sized and situated. Rhythm is regular. First and second heart sounds normal. No murmurs, rubs or gallops. Abdominal exam reveals normal bowel sounds, no masses, no organomegaly and no aortic enlargement. Extremities are nonedematous and both femoral and pedal pulses are normal. Neurologic exam DTRs are equal bilaterally no focal deficits strength is symmetrical heme lymph no palpable lymph nodes in the neck axilla or groin Assessment/Plan Problem List Items Addressed This Visit Benign essential hypertension Relevant Medications amLODIPine-benazepriL (Lotrel) 5-20 mg capsule Morbid obesity with body mass index (BMI) of 50.0 to 59.9 in adult (CMS/HCC) Above normal BMI nutrition and physical activity reviewed Avascular necrosis of right talus (CMS/HCC) - Primary Persistant pain Continue current managment Relevant Medications meloxicam (Mobic) 15 mg tablet Hetal Alonso MD documented in this encounter [facility] Work Phone: 04-29-2023 Evaluation note Encounter Date Diagnosis Assessment Notes Apr, Right ankle pain (ICD-10 - M25.571) 42 y/o female here for follow up status post right lumbar sympathetic block under fluoroscopic guidance. Patient reports minimal pain relief or improved function following the procedure. She complains of right foot and ankle pain. She also complains of swelling in the right foot, she is concered this is related to Gabapentin. Different treatment options were discussed in detail with the patient and I recommend she follow up with her surgeon for further treatment as recent imaging does not coincide with her symptoms. In the meantime, I will prescribe a TENS unit with ankle sleeve for pain. Apr, Lumbar radiculopathy (ICD-10 - M54.16) I independently reviewed recent imaging of the lumbar spine which shows a disc bulge at the L5-S1 level. Patient also complaints of pain to the outer aspect of the right ankle and foot. I recommend we proceed with a right L5,S1 transforaminal epidural steroid injection under fluoroscopic guidance. Risks and benefits of procedure explained to patient; patient verbalizes understanding. Apr, CRPS (complex regional pain syndrome) (ICD-10 - G90.50) Patient is encouraged to follow up with her ankle surgeon as I do not believe she has true CRPS Apr, Chronic pain (ICD-10 - G89.29) Follow up after procedure [employer] Other 06-16-2023 NoteProcedure: MR Lumbar Spine without contrast Clinical indication: Right ankle pain, radiculopathy Comparison: CR lumbar spine 02/06/2017, CT abdomen pelvis 12/11/2021 Technique: Multiplanar multisequence MRI of the lumbar spine without intravenous contrast per standard protocol Findings: Examination is limited secondary to body habitus. Segmentation: For this report, the last well formed disc is labeled L5-S1. Alignment: The vertebral bodies are anatomically aligned. Spinal canal: The overall caliber of the spinal canal is reduced likely on the basis of congenitally short pedicles. Vertebral bodies: No acute/recent fracture, significant chronic height loss, or focal osseous lesion. Bone marrow: Normal. Conus medullaris and cauda equina: The conus medullaris is located at T12-L1 and is normal. The cauda equina are unremarkable. Discs: Mild disc height loss L5-S1. Disc desiccation involves L4-5 and L5-S1. T12-L1: No stenosis. L1-L2 : No stenosis.. L2-L3 : No stenosis. L3-L4 : Small central zone disc protrusion and mild facet arthrosis without central canal or foraminal stenosis. L4-L5 : Mild facet arthrosis without central canal or foraminal stenosis. L5-S1 : Small diffuse posterior disc bulge with superimposed and right central zone disc extrusion contacts and posteriorly displaces the descending right S1 nerve root (axial T1 image 6 series 602) and results in mild central canal stenosis. Mild facet arthrosis and disc bulge causes mild left foraminal stenosis. Sacroiliac joints: Mild degenerative changes of the bilateral sacroiliac joints. Paraspinal musculature: Normal. Visualized abdomen and pelvis: Normal. Additional comment: None. IMPRESSION: Central and right central zone disc extrusion at L5-S1 posteriorly displacing the descending right S1 nerve root and causing mild central canal stenosis. Electronically signed by: Quentin Carney MD 04/19/2023 3:05 PM CDT Technologist: Dictated By: QUENTIN CARNEY MD Signed By: QUENTIN CARNEY MD Signed Out: 04/19/23 16:05:36[facility]06-02-2023 Evaluation note* Encounter Date Diagnosis Assessment Notes Treatment Notes Treatment Clinical Notes Apr, Chronic pain (ICD-10 - G89.29) Proceed with treatment plan. Apr, CRPS (complex regional pain syndrome) (ICD-10 - G90.50) 42 year old female presents with complaints of pain in the right foot and ankle. She has a localized area of pain at the medial aspect of the right ankle. She states at times the ankle swells, and turns purple in color. She states pain started after a fall in April of 2020, she notes this fall resulted in her dislocating the talus bone of the right foot and tearing of soft tissues. Prior to examining the patient I reviewed recent progress notes from the referring provider, Dr. Mo. History, physical examination and available images are consistent with lumbar radiculopathy and CRPS. I recommend proceeding with a sypathetic nerve block. Risks and benefits of procedure explained to patient; patient verbalizes understanding. She has a lumbar spine MRI approval through her insurance, I recommend she proceed with that as planned. In the meantime I will start Cymbalta 20 mg daily as well as a topical compound cream as needed to painful areas. She can continue Gabapentin as prescribed. Apr, Right ankle pain (ICD-10 - M25.571) Proceed with sympathetic nerve block. Apr, Lumbar radiculopathy (ICD-10 - M54.16) Stable, proceed with lumbar spine MRI. Apr, Other Medical deci yessica making shows a new problem to me with further workup planned or suggested with the potential for extensive treatment options that were considered with the most applicable given this patient's situation as noted above. Treatment options considered include a combination of physical therapy approaches, pharmacologic management, and interventional procedures. Those most applicable to the patient were discussed at this time. Risk of complications and/or morbidity and mortality is high given that acute and chronic pain poses a threat to life and bodily function if undertreated, poorly treated or with failure to maintain adequate treatment and timely followup. Given the serious and fluctuating nature of pain with extensive consideration for whenever pain changes, there always remains the possibility of prolonged functional impairment requiring constant patient reassessment and high-level medical decision making. The amount and complexity of data reviewed is high given that patient labs, radiology reports, and other test were obtained, reviewed and summarized as applicable from the physician portal and/or outside medical records. Pertinent positive and negative findings were considered in medical decision-making. [employer] Other 05-31-2023 NotePT Outpatient Progress Note Entered On: 04/03/2023 13:04 EDT Performed On: 04/03/2023 12:59 EDT by Abdoulaye Aguiar PT Review/Treatments Provided Total Visit Count : 56 Visit Count Reviewed? : Yes Pain Present : Yes actual or suspected pain Diagnosis : Reason for Visit: M19.171=POST TRAUMATIC ARTHRITIS OF R ANKLE, SX 01/10/23 Precautions/Special Notes : 03/01/23 looked at patient's orthotic materials. Modified metatarsal cookie to use as lateral heel wedge to encourage calcaneus into more eversion. [place] okay to patient butwill have patient use for awhile to ascertain tolerability. Attending Physician : Name: STEFAN SOTO Subjective : Has had a rough week, ankle really hurting and swelling. Sees pain mgmnt doctor next week. Aquatics : Yes Abdoulaye Aguiar PT - 04/03/2023 12:59 EDT Pain Assessment Pain Location : Ankle Laterality : Right Self Report Pain : Numeric rating scale Numeric Pain Scale : 6 Numeric Pain Score : 6 Abdoulaye Aguiar PT - 04/03/2023 12:59 EDT Aquatic Therapy Aqua Ankle - grid Exercise 1 Exercise 2 Exercise 3 Exercise 4 Exercise : Warm-up walk Calf stretch Ankle Pumps, Ankle circles, Alphabet trace One leg stance Reps/Time : 5' 20x3 2x20 30x3 Comment : KE and KF alphabet x1 Abdoulaye Aguiar PT - 04/03/2023 12:59 EDT Abdoulaye Aguiar PT - 04/03/2023 12:59 EDT Abdoulaye Aguiar PT - 04/03/2023 12:59 EDT Abdoulaye Aguiar PT - 04/03/2023 12:59 EDT Exercise 5 Exercise 6 Exercise 7 Exercise 8 Exercise : Calf Raises, Other: Toe raises Other: Standing Inversion and Eversion Other: Squats Step-up, Other: and Lateral step downs Reps/Time : x20 ea x15 ea x30 x20 ea Comment : bottom pool step; lateral 15x today Cosme DAWN Abdoulaye 04/03/2023 12:59 EDT Cosme DAWN Abdoulaye - 04/03/2023 12:59 EDT Cosme DAWN Abdoulaye 04/03/2023 12:59 EDT Cosme DAWN Abdoulaye 04/03/2023 12:59 EDT Exercise 9 Exercise 10 Exercise 11 Exercise 12 Exercise : Carioca, Step/Plant, March walk, Retro walk, Lateral walk Other: Flex, Abd, Extension ofhips Water cycle - deep Other: Gait training trying to improve toe off, delaying heel off slightly. Reps/Time : 6w x20 ea 5' 4w - 0 Comment : ABDuction, hang with noodle Cosme DAWN Abdoulaye 04/03/2023 12:59 EDT Abdoulaye Aguiar PT 04/03/2023 12:59 EDT Cosme DAWN Abdoulaye 04/03/2023 12:59 EDT Cosme DAWN Abdoulaye 04/03/2023 12:59 EDT Exercise 13 Exercise : Cool down walk Reps/Time : 3' Comment : Cosme DAWN Abdoulaye 04/03/2023 12:59 EDT Education *Barriers To Learning : None evident *Teaching Method : Demonstration Patient Education - PT Outpatient : Home exercise program - progression/modification Abdoulaye Aguiar PT 04/03/2023 12:59 EDT Assessment PT Clinical Assessment Summary : Sebastián session okay despite occasional Zings in ankle, most always associated with plantar flexion. Cosme DAWN Abdoulaye 04/03/2023 12:59 EDT Plan Frequency : 2 times per week *Duration : 8 Weeks *Treatments : Balance training, Manual therapy, Therapeutic exercises, Patient education, Gait training *Plan for Next Visit : Finish up on land visits. to see pain management MD Home Exercise Program/Other PT Treatment Provided : Initiated Treatment Plan/Goals Established with Patient/Caregiver : Yes Abdoulaye Aguiar PT 04/03/2023 12:59 EDT Time Spent with Patient - Outpatient PT Time In : 10:30 EST PT Time Out : 11:20 EST PT Aquatic Group Therapy Units : 1 units PT Aquatic Group Therapy Time : 30 minutes PT Aquatic Units : 1 units PT Aquatic Time : 20 minutes PT Total Timed Code Treatment Units : 1 units PT Total Timed Code Tx Minutes : 20 minutes 8 Min Rule Unit Check PT OP : 1 units PT Total Untimed Code Treatment Minutes : 30 minutes PT Total Treatment Time Rehab : 50 minutes 8 Min Rule Unit Difference PT OP : 0 Abdoulaye [facility]uiar [facility] - [facility] Outpatient Progress Note Entered On: 03/29/2023 9:55 EDT Performed On: 03/29/2023 9:02 EDT by Abdoulaye Aguiar PT Review/Treatments Provided Pain Present : Yes actual or suspected pain Subjective : Wants to cont 1X/week to keep mobility and flexibility that she already has until nerve work an be accomplished. Therapeutic Exercise : Yes Manual Therapy : Yes Abdoulaye Aguiar PT - 03/29/2023 13:40 EDT Total Visit Count : 55 Visit Count Reviewed? 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 Modified metatarsal cookie to use as lateral heel wedge to encourage calcaneus into more eversion. [place] okay to patient butwill have patient use for awhile to ascertain tolerability. Attending Physician : Name: STEFAN SOTO PT, Lonnie - 03/29/2023 9:02 EDT Pain Assessment Pain Location : Ankle Laterality : Right Self Report Pain : Numeric rating scale Numeric Pain Scale : 6 Numeric Pain Score : 6 Abdoulaye Aguiar PT - 03/29/2023 13:40 EDT Therapeutic Exercise Custom Therapeutic Exercise Exercise 1 Exercise 2 Exercise 3 Exercise 4 Exercise : Ankle ROM Right Towel Stretch t-band 4X Seated AROM (PF/DF)(Inv/Ev) Equipment/Device : Repetition/Time : x20 ea 20x3 KE and KF 15x2 x20 ea Resist or Assist : Red Not Performed : X HEP Given : Comment : Abdoulaye Aguiar PT 03/29/2023 13:40 EDT Cosme DAWN, Abdoulaye 03/29/2023 13:40 EDT Cosme DAWN, Abdoulaye 03/29/2023 13:40 EDT Cosme DAWN, Abdoulaye 03/29/2023 13:40 EDT Exercise 5 Exercise 6 Exercise 7 Exercise 8 Exercise : Seated Baps Standing with relaxed foot Modified tandem stand Seated Dome Equipment/Device : Repetition/Time : 10 ea 1 minute 10x2 3x10 Resist or Assist : Not Performed : X X X HEP Given : Comment : x4 way and CW/CCW Cosme DAWN, Abdoulaye 03/29/2023 13:40 EDT Cosme DAWN, Abdoulaye 03/29/2023 13:40 EDT Cosme DAWN, Abdoulaye 03/29/2023 13:40 EDT Cosme DAWN, Abdoulaye 03/29/2023 13:40 EDT Exercise 9 Exercise 10 Exercise 11 Exercise 12 Exercise : calcaneal distraction and mobs subtalar mobs for eversion Calcaneal eversion mobs standing Closed chain calcaneal eversion using slant board Equipment/Device : Slant board Repetition/Time : grade II grade III 4' grade II 2' 30 PWB rocking laterally into board Resist or Assist : Not Performed : X HEP Given : Yes Comment : Cosme DAWN Abdoulaye 03/29/2023 13:40 EDT Cosme DAWN, Abdoulaye 03/29/2023 13:40 EDT Cosme DAWN, Abdoulaye 03/29/2023 13:40 EDT Cosme DAWN, Abdoulaye 03/29/2023 13:40 EDT Exercise 14 Exercise : Gait training without AD Equipment/Device : Repetition/Time : 25 min Resist or Assist : Not Performed : HEP Given : Comment : Cosme DAWN Abdoulaye 03/29/2023 13:40 EDT Manual Therapy Manual Therapy Activity 1 Activity 2 Type/Technique : IASTM, Manual stretch, Myofascial/Soft tissue mobilization Region : Right ankle Equipment/Medium : Deep prep, Smart tools Deep prep Descriptor : 15' Cosme DAWN Abdoulaye 03/29/2023 13:40 EDT Abdoulaye Aguiar PT - 03/29/2023 13:40 EDT Education *Barriers To Learning : None evident *Teaching Method : Explanation Patient Education - PT Outpatient : Home exercise program - progression/modification Abdoulaye Aguiar PT - 03/29/2023 13:40 EDT Assessment PT Clinical Assessment Summary : Sebastián session well although mobs and pushing range quite uncomfortable. Will cont to work with patient on limited basis to maintain present range and improve upon mobility if possible; also, encourage cont's work on weightbearing and gait. Abdoulaye Aguiar PT - 03/29/2023 13:40 EDT Plan Frequency : 2 times per week *Duration : 8 Weeks *Treatments : Balance training, Manual therapy, Therapeutic exercises, Patient education, Gait training *Plan for Next Visit : Cont as above to patient tolerance, ankle and achilles. Home Exercise Program/Other PT Treatment Provided : Initiated Treatment Plan/Goals Established with Patient/Caregiver : Yes Abdoulaye Aguiar PT - 03/29/2023 13:40 EDT Time Spent with Patient - Outpatient PT Time In : 09:04 EST PT Time Out : 09:54 EST PT Therapeutic Exercise Units : 2 units PT Therapeutic Exercise Time : 24 minutes PT Soft Tissue Mobility Units : 1 units PT Soft Tissue Mobility Time : 15 minutes PT Total Timed Code Treatment Units : 3 units PT Total Timed Code Tx Minutes : 39 minutes 8 Min Rule Unit Check PT OP : 3 units PT Total Treatment Time Rehab : 39 minutes 8 Min Rule Unit Difference PT OP : 0 Abdoulaye Aguiar PT - 03/29/2023 13:[address] [facility] 03-29-2023 NotePT Outpatient Progress Note Entered On: 03/26/2023 9:34 EDT Performed On: 03/26/2023 8:59 EDT by Meredith Menendez PTA Review/Treatments Provided Total Visit Count : 54 Visit Count Reviewed? : Yes Pain Present : Yes actual or suspected pain Diagnosis : Reason for Visit: M19.171=POST TRAUMATIC ARTHRITIS OF R ANKLE, SX 01/10/23 Precautions/Special Notes : 03/01/23 looked at patient's orthotic materials. Modified metatarsal cookie to use as lateral heel wedge to encourage calcaneus into more eversion. [place] okay to patient butwill have patient use for awhile to ascertain tolerability. Attending Physician : Name: STEFAN SOTO Shon HAKEEM 03/26/2023 8:59 EDT Subjective : Pt saw a neurologist and was swativien a diagnosis of CRPS. Will be seeing pain management for trial injections. Pt is experiencing increased swelling in the evening. has not been able to complete her ankle and calf stretching d/t pain, and now feels very tight. Shon HAKEEM 03/26/2023 11:24 EDT Manual Therapy : Yes Modalities : Yes Shon HAKEEM Meredith - 03/26/2023 8:59 EDT Pain Assessment Pain Location : Ankle Laterality : Right Self Report Pain : Numeric rating scale Numeric Pain Scale : 5 = Moderate pain Numeric Pain Score : 5 Shon HAKEEM 03/26/2023 8:59 EDT Manual Therapy Manual Therapy Activity 1 Activity 2 Type/Technique : IASTM, Manual stretch, Myofascial/Soft tissue mobilization Region : Right ankle Equipment/Medium : Deep prep, Smart tools Deep prep Shon HAKEEM 03/26/2023 8:59 EDT Shon PALACIO 03/26/2023 8:59 EDT Modalities Modalities Activity 1 Modality : Vasopneumatic device therapy Body Region : R ankle Settings : H Minutes : 15 minutes Shon PALACIO 03/26/2023 8:59 EDT Education *Barriers To Learning : None evident *Teaching Method : Demonstration, Explanation Patient Education - PT Outpatient : N/A Shno HAKEEM 03/26/2023 8:59 EDT Assessment PT Response to Treatment : Tolerated well PT Clinical Assessment Summary : Pt responded well to manual work and edema was reduced with use ofvasopneumatic device. Shon HAKEEM 03/26/2023 8:59 EDT Plan Frequency : 2 times per week *Duration : 8 Weeks *Treatments : Balance training, Manual therapy, Therapeutic exercises, Patient education, Gait training *Plan for Next Visit : Resume full routine Home Exercise Program/Other PT Treatment Provided : Initiated Treatment Plan/Goals Established with Patient/Caregiver : Yes ShonNew zaragoza PTA03/26/2023 8:59 EDT Time Spent with Patient - Outpatient PT Time In : 00:00 EST PT Time Out : 00:00 EST PT Soft Tissue Mobility Time : 0 minutes ADJUNCT LATIN PROFESSOR Soft Tissue Mobility Units : 0 units PT Total Timed Code Treatment Units : 0 units PT Total Timed Code Tx Minutes : 0 minutes 8 Min Rule Unit Check PT OP : 0 units PT Total Treatment Time Rehab : 0 minutes 8 Min Rule Unit Difference PT OP : 0 Meredith Menendez PTA - 03[facility]23 [facility] Outpatient Progress Note Entered On: 03/12/2023 10:13 EDT Performed On: 03/12/2023 8:54 EDT by Meredith Menendez PTA Review/Treatments Provided Total Visit Count : 52 Visit Count Reviewed? 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 Modified metatarsal cookie to use as lateral heel wedge to encourage calcaneus into more eversion. [place] okay to patient butwill have patient use for awhile to ascertain tolerability. Attending Physician : Name: STEFAN SOTO Subjective : Pt states she is still having trouble getting started d/t pain, but as she continues to ambulate, it improves. Feels she walks best at home in bare feet, but shoes with support pose a problem with stability. Therapeutic Exercise : Yes Meredith Menendez PTA 03/12/2023 8:54 EDT Therapeutic Exercise Custom Therapeutic Exercise Exercise 1 Exercise 2 Exercise 3 Exercise 4 Exercise : Ankle ROM Right Towel Stretch t-band 4X Seated AROM (PF/DF)(Inv/Ev) Equipment/Device : Repetition/Time : x20 ea 20x3 KE and KF 15x2 x20 ea Resist or Assist : Red Not Performed : X HEP Given : Comment : Meredith Menendez PTA 03/12/2023 8:54 EDT Meredith Menendez PTA 03/12/2023 8:54 EDT Meredith Menendez PTA 03/12/2023 8:54 EDT Meredith Menendez PTA 03/12/2023 8:54 EDT Exercise 5 Exercise 6 Exercise 7 Exercise 8 Exercise : Seated Baps Standing with relaxed foot Modified tandem stand Seated Dome Equipment/Device : Repetition/Time : 10 ea 1 minute 10x2 3x10 Resist or Assist : Not Performed : X X X HEP Given : Comment : x4 way and CW/CCW Shon PALACIO Meredith 03/12/2023 8:54 EDT Shon PALACIO Meredith 03/12/2023 8:54 EDT Shon PALACIO [facility] 03/12/2023 8:54 EDT Shon PALACIO Meredith 03/12/2023 8:54 EDT Exercise 9 Exercise 10 Exercise 11 Exercise 12 Exercise : calcaneal distraction and mobs subtalar mobs for eversion Calcaneal eversion mobs standing Closed chain calcaneal eversion using slant board Equipment/Device : Slant board Repetition/Time : grade II grade III 4' grade II 2' 30 PWB rocking laterally into board Resist or Assist : Not Performed : X HEP Given : Yes Comment : Shon PALACIO Meredith 03/12/2023 8:54 EDT Shon PALACIO Meredith 03/12/2023 8:54 EDT Shon PALACIO [facility] 03/12/2023 8:54 EDT Shon PALACIO [facility] 03/12/2023 8:54 EDT Exercise 14 Exercise : Gait training without AD Equipment/Device : Repetition/Time : 25 min Resist or Assist : Not Performed : HEP Given : Comment : Shon PALACIO Meredith 03/12/2023 8:54 EDT Education *Barriers To Learning : None evident *Teaching Method : Demonstration, Explanation Patient Education - PT Outpatient : N/A Shon PALACIO Meredith 03/14/2023 10:24 EDT Assessment PT Response to Treatment : Tolerated well PT Clinical Assessment Summary : Added lateral hip strengthening this visit for increasing stability for gait tasks. addressed pt's concerns with pain management not scheduling her until she has and MRI for the spine, whch will not be approved until she completed 6 weeks of PT for her spine. New Menendez PTAa 03/14/2023 10:24 EDT Plan Frequency : 2 times per week *Duration : 8 Weeks *Treatments : Balance training, Manual therapy, Therapeutic exercises, Patient education, Gait training *Plan for Next Visit : progess hip and LE strengthening for gait talks Home Exercise Program/Other PT Treatment Provided : Initiated Treatment Plan/Goals Established with Patient/Caregiver : Yes Meredith Menendez PTA - 03/14/2023 10:24 EDT Time Spent with Patient - Outpatient PT Time In : 00:00 EST PT Time Out : 00:00 EST PT Therapeutic Exercise Time : 0 minutes ADJUNCT LATIN PROFESSOR Therapeutic Exercise Units : 0 units PT Total Timed Code Treatment Units : 0 units PT Total Timed Code Tx Minutes : 0 minutes 8 Min Rule Unit Check PT OP : 0 units PT Total Treatment Time Rehab : 0 minutes 8 Min Rule Unit Difference PT OP : 0 Meredith Menendez PTA 03[facility]PT Outpatient Progress Note Entered On: 03/05/2023 12:28 EDT Performed On: 03/05/2023 11:48 EDT by Meredith Menendez PTA Review/Treatments Provided Total Visit Count : 49 Visit Count Reviewed? 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 Modified metatarsal cookie to use as lateral heel wedge to encourage calcaneus into more eversion. [place] okay to patient butwill have patient use for awhile to ascertain tolerability. Attending Physician : Name: STEFAN SOTO Subjective : Pt continues to have nerve pain at anterior ankle but feels good today. Has been walking barefoot at home without AD, feeling good. Therapeutic Exercise : Yes Meredith Menendez PTA 03/05/2023 11:48 EDT Therapeutic Exercise Custom Therapeutic Exercise Exercise 1 Exercise 2 Exercise 3 Exercise 4 Exercise : Ankle ROM Right Towel Stretch t-band 4X Seated AROM (PF/DF)(Inv/Ev) Equipment/Device : Repetition/Time : x20 ea 20x3 KE and KF 15x2 x20 ea Resist or Assist : Red Not Performed : X HEP Given : Comment : Meredith Menendez PTA 03/05/2023 11:48 EDT Meredith Menendez PTA 03/05/2023 11:48 EDT Meredith Menendez PTA 03/05/2023 11:48 EDT Meredith Menendez PTA 03/05/2023 11:48 EDT Exercise 5 Exercise 6 Exercise 7 Exercise 8 Exercise : Seated Baps Standing with relaxed foot Modified tandem stand Seated Dome Equipment/Device : Repetition/Time : 10 ea 1 minute 10x2 3x10 Resist or Assist : Not Performed : X X X HEP Given : Comment : x4 way and CW/CCW Shon PALACIO, [facility] 03/05/2023 11:48 EDT Shon PALACIO, [facility] 03/05/2023 11:48 EDT Shon PALACIO, [facility] 03/05/2023 11:48 EDT Shon PALACIO [facility] 03/05/2023 11:48 EDT Exercise 9 Exercise 10 Exercise 11 Exercise 12 Exercise : calcaneal distraction and mobs subtalar mobs for eversion Calcaneal eversion mobs standing Closed chain calcaneal eversion using slant board Equipment/Device : Slant board Repetition/Time : grade II grade III 4' grade II 2' 30 PWB rocking laterally into board Resist or Assist : Not Performed : X X HEP Given : Yes Comment : Shon PALACIO [facility] 03/05/2023 11:48 EDT Shon PALACIO [facility] 03/05/2023 11:48 EDT Shon PALACIO [facility] 03/05/2023 11:48 EDT Shon PALACIO [facility] 03/05/2023 11:48 EDT Exercise 14 Exercise : Gait training without AD Equipment/Device : Repetition/Time : Resist or Assist : Not Performed : HEP Given : Comment : Shon PALACIO [facility] 03/05/2023 11:48 EDT Education *Barriers To Learning : None evident *Teaching Method : Demonstration, Explanation Patient Education - PT Outpatient : N/A Shon PALACIO [facility] 03/05/2023 14:06 EDT Assessment PT Response to Treatment : Tolerated well PT Clinical Assessment Summary : Focused on gait training in even and uneven surfaces with emphasison symmetrical sstride length and WS without use of ADs. Pt demonstrates improvement with progressive trials. Shon PALACIO [facility] 03/05/2023 14:06 EDT Plan Frequency : 2 times per week *Duration : 8 Weeks *Treatments : Balance training, Manual therapy, Therapeutic exercises, Patient education, Gait training *Plan for Next Visit : Assess response to inceased ambulation without AD. Home Exercise Program/Other PT Treatment Provided : Initiated Treatment Plan/Goals Established with Patient/Caregiver : Yes Meredith Menendez PTA - 03/05/2023 14:06 EDT Time Spent with Patient - Outpatient PT Time In : 00:00 EST PT Time Out : 00:00 EST PT Therapeutic Exercise Time : 0 minutes ADJUNCT LATIN PROFESSOR Therapeutic Exercise Units : 0 units PT Total Timed Code Treatment Units : 0 units PT Total Timed Code Tx Minutes : 0 minutes 8 Min Rule Unit Check PT OP : 0 units PT Total Treatment Time Rehab : 0 minutes 8 Min Rule Unit Difference PT OP : 0 Shon HAKEEM Meredith - 03[facility]23 [facility] Outpatient Progress Note Entered On: 03/15/2023 10:13 EDT Performed On: 03/15/2023 9:00 EDT by Abdoulaye Aguiar PT Review/Treatments Provided Total Visit Count : 53 Visit Count Reviewed? : Yes Pain Present : Yes actual or suspected pain Diagnosis : Reason for Visit: M19.171=POST TRAUMATIC ARTHRITIS OF R ANKLE, SX 01/10/23 Precautions/Special Notes : 03/01/23 looked at patient's orthotic materials. Modified metatarsal cookie to use as lateral heel wedge to encourage calcaneus into more eversion. [place] okay to patient butwill have patient use for awhile to ascertain tolerability. Attending Physician : Name: STEFAN SOTO Subjective : Had a bad day yesterday, not as bad today. Therapeutic Exercise : Yes Abdoulaye Aguiar PT - 03/15/2023 9:00 EDT Pain Assessment Pain Location : Ankle Laterality : Right Self Report Pain : Numeric rating scale Numeric Pain Scale : 4 Numeric Pain Score : 4 Abdoulaye Aguiar PT - 03/15/2023 9:00 EDT Therapeutic Exercise Custom Therapeutic Exercise Exercise 1 Exercise 2 Exercise 3 Exercise 4 Exercise : Ankle ROM Right Towel Stretch t-band 4X Seated AROM (PF/DF)(Inv/Ev) Equipment/Device : Repetition/Time : x20 ea 20x3 KE and KF 15x2 x20 ea Resist or Assist : Red Not Performed : X HEP Given : Comment : Abdoulaye Aguiar PT - 03/15/2023 9:00 EDT [facility], Abdoulaye - 03/15/2023 9:00 EDT Daphnerefugio PT, Abdoulaye - 03/15/2023 9:00 EDT [facility] PT, Abdoulaye - 03/15/2023 9:00 EDT Exercise 5 Exercise 6 Exercise 7 Exercise 8 Exercise : Seated Baps Standing with relaxed foot Modified tandem stand Seated Dome Equipment/Device : Repetition/Time : 10 ea 1 minute 10x2 3x10 Resist or Assist : Not Performed : X X X HEP Given : Comment : x4 way and CW/CCW [facility]dudley LÓPEZ, Abdoulaye - 03/15/2023 9:00 EDT Daphnerefugio PT, Abdoulaye - 03/15/2023 9:00 EDT Daphnerefugio PT, Abdoulaye 03/15/2023 9:00 EDT Daphnerefugio PT, Abdoulaye - 03/15/2023 9:00 EDT Exercise 9 Exercise 10 Exercise 11 Exercise 12 Exercise : calcaneal distraction and mobs subtalar mobs for eversion Calcaneal eversion mobs standing Closed chain calcaneal eversion using slant board Equipment/Device : Slant board Repetition/Time : grade II grade III 4' grade II 2' 30 PWB rocking laterally into board Resist or Assist : Not Performed : X HEP Given : Yes Comment : Cosme DAWN Abdoulaye - 03/15/2023 9:00 EDT Daphnerefugio DAWN Abdoulaye - 03/15/2023 9:00 EDT Cosme LÓPEZ Abdoulaye - 03/15/2023 9:00 EDT Daphnerefugio PT, Abdoulaye - 03/15/2023 9:00 EDT Exercise 14 Exercise : Gait training without AD Equipment/Device : Repetition/Time : 25 min Resist or Assist : Not Performed : HEP Given : Comment : Cosme LÓPEZ Abdoulaye - 03/15/2023 9:00 EDT Education *Barriers To Learning : None evident *Teaching Method : Explanation Patient Education - PT Outpatient : Home exercise program - progression/modification Cosme DAWN Abdoulaye - 03/15/2023 9:00 EDT Assessment PT Clinical Assessment Summary : Having a better day; patient reports she feels better after manualsessions in regards to comfort and mobility Abdoulaye Aguiar PT - 03/15/2023 9:00 EDT Plan Frequency : 2 times per week *Duration : 8 Weeks *Treatments : Balance training, Manual therapy, Therapeutic exercises, Patient education, Gait training *Plan for Next Visit : Cont manual therapy, exercises, gait training. Home Exercise Program/Other PT Treatment Provided : Initiated Treatment Plan/Goals Established with Patient/Caregiver : Yes Abdoulaye Aguiar PT - 03/15/2023 9:00 EDT Time Spent with Patient - Outpatient PT Time In : 09:00 EST PT Time Out : 09:40 EST PT Therapeutic Exercise Units : 3 units PT Therapeutic Exercise Time : 40 minutes PT Total Timed Code Treatment Units : 3 units PT Total Timed Code Tx Minutes : 40 minutes 8 Min Rule Unit Check PT OP : 3 units PT Total Treatment Time Rehab : 40 minutes 8 Min Rule Unit Difference PT OP : 0 Abdoul[facility] - 03[facility]15[facility]23 [facility] Out[facility] Progress Note Entered On: 03/13/2023 13:29 EDT Performed On: 03/13/2023 10:30 EDT by Favio Whittaker PT Review/Treatments Provided Total Visit Count : 52 Visit Count Reviewed? : Yes Intermediate Goals Reviewed : Yes Diagnosis : Reason for Visit: M19.171=POST TRAUMATIC ARTHRITIS OF R ANKLE, SX 01/10/23 Precautions/Special Notes : 03/01/23 looked at patient's orthotic materials. Modified metatarsal cookie to use as lateral heel wedge to encourage calcaneus into more eversion. [place] okay to patient butwill have patient use for awhile to ascertain tolerability. Attending Physician : Name: STEFAN SOTO Subjective : good day per pt., using 1 walking stick Aquatics : Yes Favio Whittaker PT - 03/13/2023 13:19 EDT Intermediate Goals PT Outpt Pt Goal - grid Goal #1 PT Patient,Caregiver Goal : Walk with normal gait characteristics (non-everted) using appropriate toe-off. Duration : 8 weeks Status : Initial Date : 02/06/2023 EDT Favio Whittaker PT - 03/13/2023 13:19 EDT General Function Goal #1 Goal #2 Goal #3 Goal : Ambulate community distances with normal gait mechanics Transition to independent home or community exercise program Transition to independent home or community exercise program Duration : 8 Weeks 8 Weeks 8 Weeks Status : Initial Initial Initial Date : 02/06/2023 EDT 02/06/2023 EDT 02/06/2023 EDT [facility] PT, Favio 03/13/2023 13:19 EDT [facility] PT, Favio - 03/13/2023 13:19 EDT Panfil[facility] PT, Favio - 03/13/2023 13:19 EDT Aquatic Therapy Aqua Ankle - grid Exercise 1 Exercise 2 Exercise 3 Exercise 4 Exercise : Warm-up walk Calf stretch Ankle Pumps, Ankle circles, Alphabet trace One leg stance Reps/Time : 5' 20x3 2x20 30x3 Comment : KE and KF alphabet x1 Panfilo PT, Favio 03/13/2023 13:19 EDT [facility] PT, Favio 03/13/2023 13:19 EDT [facility] PT, Favio 03/13/2023 13:19 EDT [facility] PT, Favio - 03/13/2023 13:19 EDT Exercise 5 Exercise 6 Exercise 7 Exercise 8 Exercise : Calf Raises, Other: Toe raises Other: Standing Inversion and Eversion Other: Squats Step-up, Other: and Lateral step downs Reps/Time : x20 ea x15 ea x30 x20 ea Comment : bottom pool step; lateral 15x today Panfilo PT, Favio 03/13/2023 13:19 EDT Panfilo PT, Favio 03/13/2023 13:19 EDT [facility] PT, Favio 03/13/2023 13:19 EDT Panfil[facility] PT, Favio 03/13/2023 13:19 EDT Exercise 9 Exercise 10 Exercise 11 Exercise 12 Exercise : Carioca, Step/Plant, March walk, Retro walk, Lateral walk Other: Flex, Abd, Extension ofhips Water cycle - deep Other: Gait training trying to improve toe off, delaying heel off slightly. Reps/Time : 6w x20 ea 5' 4w - 0 Comment : ABDuction, hang with noodle Panfilo PT, Favio 03/13/2023 13:19 EDT Panfilo PT, Favio 03/13/2023 13:19 EDT [facility] PT, Favio - 03/13/2023 13:19 EDT Favio Whittaker PT 03/13/2023 13:19 EDT Exercise 13 Exercise : Cool down walk Reps/Time : 3' Comment : Favio Whittaker PT 03/13/2023 13:19 EDT Education *Barriers To Learning : None evident *Teaching Method : Demonstration, Explanation Patient Education - PT Outpatient : Other: SL walk Favio Whittaker PT 03/13/2023 13:19 EDT Assessment PT Response to Treatment : Tolerated well PT Clinical Assessment Summary : Pt. takes time to do exercises, walking with good form. Favio Whittaker PT 03/13/2023 13:19 EDT Plan Frequency : 2 times per week *Duration : 8 Weeks *Treatments : Balance training, Manual therapy, Therapeutic exercises, Patient education, Gait training *Plan for Next Visit : continue protocal Home Exercise Program/Other PT Treatment Provided : Initiated Treatment Plan/Goals Established with Patient/Caregiver : Yes Favio Whittaker PT 03/13/2023 13:19 EDT Time Spent with Patient - Outpatient PT Time In : 10:30 EST PT Time Out : 11:15 EST PT Aquatic Group Therapy Units : 1 units PT Aquatic Group Therapy Time : 15 minutes PT Aquatic Units : 2 units PT Aquatic Time : 30 minutes PT Total Timed Code Treatment Units : 2 units PT Total Timed Code Tx Minutes : 30 minutes 8 Min Rule Unit Check PT OP : 2 units PT Total Untimed Code Treatment Minutes : 15 minutes PT Total Treatment Time Rehab : 45 minutes 8 Min Rule Unit Difference PT OP : 0 [facility]io Whittaker [facility] 03[facility]13/[facility]23 [facility] Out[facility] Progress Note Entered On: 03/08/2023 11:03 EDT Performed On: 03/08/2023 10:55 EDT by Abdoulaye Aguiar PT Review/Treatments Provided Total Visit Count : 51 Visit Count Reviewed? : Yes Pain Present : Yes actual or suspected pain Diagnosis : Reason for Visit: M19.171=POST TRAUMATIC ARTHRITIS OF R ANKLE, SX 01/10/23 Precautions/Special Notes : 03/01/23 looked at patient's orthotic materials. Modified metatarsal cookie to use as lateral heel wedge to encourage calcaneus into more eversion. [place] okay to patient butwill have patient use for awhile to ascertain tolerability. Attending Physician : Name: STEFAN SOTO Subjective : Had very busy week, ankle has flared. Patient says it feels like nerve pain which can come and leave suddenly, usually with change and loading of ankle position. Trying to get int to seepain doctor Therapeutic Exercise : Yes Modalities : Yes Cosme DAWN Abdoulaye - 03/08/2023 10:55 EDT Allergies & Medications (As Of: 03/08/2023 11:03:27 EDT) Allergies (Active) Percocet Estimated Onset Date: Unspecified ; Reactions: Hallucination ; Created By: Nereyda Henry RN; Reaction Status: Active ; Category: Drug ; Substance: Percocet ; Type: Allergy ; Updated By: Nereyda Henry RN; Reviewed Date: 04/12/2020 17:46 EDT Zithromax Estimated Onset Date: Unspecified ; Reactions: HIVES ; Created By: Chelsey Pablo LPN; Reaction Status: Active ; Category: Drug ; Substance: Zithromax ; Type: Allergy ; Updated By: Chelsey Pablo LPN; Reviewed Date: 04/12/2020 17:46 EDT Medication List (As Of: 03/08/2023 11:03:27 EDT) Prescription/Discharge Order methylPREDNISolone : methylPREDNISolone ; Status: Prescribed ; Ordered As Mnemonic: Medrol 4 mg oral tablet ; Simple Display Line: 1 packets, ORAL, DAILY, for 6 days, as directed on package labeling,21 tabs, 0 Refill(s) ; Ordering Provider: KOREY HUTCHINSON DPM; Catalog Code: methylPREDNISolone ; Order Dt/Tm: 12/19/2022 14:39:08 EST apixaban : apixaban ; Status: Prescribed ; Ordered As Mnemonic: Eliquis 2.5 mg oral tablet ; SimpleDisplay Line: 2.5 mg = 1 tabs, ORAL, BID, for 30 days, 60 tabs, 0 Refill(s) ; Ordering Provider: YARELI FOREMAN DPM, RES; Catalog Code: apixaban ; Order Dt/Tm: 04/14/2020 12:48:53 EDT ; Comment: To prevent or treat blood clots ondansetron : ondansetron ; Status: Prescribed ; Ordered As Mnemonic: Zofran 8 mg oral tablet ; Simple Display Line: 8 mg = 1 tabs, ORAL, [id number], PRN: as needed for nausea/vomiting, 30 tabs, 0 Refill(s) ; Ordering Provider: YARELI FOREMAN DPM, RES; Catalog Code: ondansetron ; Order Dt/Tm: 04/14/2020 11:00:03 EDT acetaminophen-hydrocodone : acetaminophen-hydrocodone ; Status: Prescribed ; Ordered As Mnemonic: acetaminophen-HYDROcodone 325 mg-5 mg oral tablet ; Simple Display Line: 2 tabs, ORAL, [id number], PRN: Moderate to Severe Pain, 30 tabs, 0 Refill(s) ; Ordering Provider: YARELI FOREMAN DPM, RES; CatalogCode: acetaminophen-hydrocodone ; Order Dt/Tm: 04/14/2020 10:56:20 EDT Home Meds amLODIPine-benazepril : amLODIPine-benazepril ; Status: Documented ; Ordered As Mnemonic: amlodipine-benazepril 5 mg-20 mg oral capsule ; Simple Display Line: 90 EA, TAKE 1 CAPSULE BY MOUTH DAILY, 0 Refill(s) ; Catalog Code: amlodipine- benazepril ; Order Dt/Tm: 12/19/2022 13:54:50 EST ; Comment: Responsible Provider: HETAL ALONSO DULoxetine : DULoxetine ; Status: Documented ; Ordered As Mnemonic: DULoxetine 20 mg oral delayed release capsule ; Simple Display Line: 90 EA, TAKE 1 CAPSULE BY MOUTH DAILY, 0 Refill(s) ; Catalog Code: DULoxetine ; Order Dt/Tm: 12/19/2022 13:54:53 EST ; Comment: Responsible Provider: HETAL ALONSO ethinyl estradiol-levonorgestrel : ethinyl estradiol-levonorgestrel ; Status: Documented ; Ordered As Mnemonic: Ashlyna oral tablet ; Simple Display Line: 1 tabs, ORAL, QHS, 0 Refill(s) ; Catalog Code: ethinyl estradiol-levonorgestrel ; Order Dt/Tm: 04/12/2020 15:40:40 EDT Pain Assessment Pain Location : Ankle Laterality : Right Self Report Pain : Numeric rating scale Numeric Pain Scale : 5 = Moderate pain Numeric Pain Score : 5 Abdoulaye Aguiar PT - 03/08/2023 10:55 EDT Therapeutic Exercise Custom Therapeutic Exercise Exercise 1 Exercise 2 Exercise 3 Exercise 4 Exercise : Ankle ROM Right Towel Stretch t-band 4X Seated AROM (PF/DF)(Inv/Ev) Equipment/Device : Repetition/Time : x20 ea 20x3 KE and KF 15x2 x20 ea Resist or Assist : Red Not Performed : X HEP Given : Comment : Abdoulaye Aguiar PT - 03/08/2023 10:55 EDT Abdoulaye Aguiar PT - 03/08/2023 10:55 EDT Abdoulaye Aguiar PT - 03/08/2023 10:55 EDT Abdoulaye Aguiar PT - 03/08/2023 10:55 EDT Exercise 5 Exercise 6 Exercise 7 Exercise 8 Exercise : Seated Baps Standing with relaxed foot Modified tandem stand Seated Dome Equipment/Device : Repetition/Time : 10 ea 1 minute 10x2 3x10 Resist or Assist : Not Performed : X X X HEP Given : Comment : x4 way and CW/CCW Erwin Aguiar PT (more content not included)...[facility] 03-06-2023 NotePT Outpatient Progress Note Entered On: 03/06/2023 13:16 EDT Performed On: 03/06/2023 13:08 EDT by Abdoulaye Aguiar PT Review/Treatments Provided Total Visit Count : 50 Visit Count Reviewed? 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 Modified metatarsal cookie to use as lateral heel wedge to encourage calcaneus into more eversion. [place] okay to patient butwill have patient use for awhile to ascertain tolerability. Attending Physician : Name: STEFAN SOTO Subjective : WAs busy yesterday on feet, did walking without support and did okay. Another busy daytoday. Aquatics : Yes Abdoulaye Aguiar PT - 03/06/2023 13:08 EDT Aquatic Therapy Aqua Ankle - grid Exercise 1 Exercise 2 Exercise 3 Exercise 4 Exercise : Warm-up walk Calf stretch Ankle Pumps, Ankle circles One leg stance Reps/Time : 3' 20x3 x20 10x3 Comment : KE and KF Daphnerefugio PT, Abdoulaye - 03/06/2023 13:08 EDT Cosme PT, Abdoulaye - 03/06/2023 13:08 EDT Cosme PT, Abdoulaye - 03/06/2023 13:08 EDT Cosme PT, Abdoulaye - 03/06/2023 13:08 EDT Exercise 5 Exercise 6 Exercise 7 Exercise 8 Exercise : Calf Raises, Other: Toe raises Other: Standing Inversion and Eversion Other: Squats Step-up, Other: and Lateral step downs Reps/Time : x20 ea x15 ea x20 x20 ea Comment : bottom pool step Cosme PT, Abdoulaye - 03/06/2023 13:08 EDT Cosme PT, Abdoulaye - 03/06/2023 13:08 EDT Cosme PT, Abdoulaye - 03/06/2023 13:08 EDT Cosme PT, Abdoulaye - 03/06/2023 13:08 EDT Exercise 9 Exercise 10 Exercise 11 Exercise 12 Exercise : Carioca, Step/Plant, March walk, Retro walk, Lateral walk Other: Flex, Abd, Extension ofhips Water cycle - bench Other: Gait training trying to improve toe off, delaying heel off slightly. Reps/Time : 4w ea x20 ea 3' 4w - 0 Comment : Cosme DAWN Abdoulaye - 03/06/2023 13:08 EDT Cosme PT, Abdoulaye - 03/06/2023 13:08 EDT Cosme PT, Abdoulaye - 03/06/2023 13:08 EDT Cosme PT, Abdoulaye - 03/06/2023 13:08 EDT Exercise 13 Exercise : Cool down walk Reps/Time : 3' Comment : Cosme DAWN Abdoulaye - 03/06/2023 13:08 EDT Education *Barriers To Learning : None evident *Teaching Method : Explanation Patient Education - PT Outpatient : Home exercise program - progression/modification Cosme DAWN Abdoulaye - 03/06/2023 13:08 EDT Assessment PT Clinical Assessment Summary : Did well despite increased and additions in exercise Cosme DAWN Abdoulaye - 03/06/2023 13:08 EDT Plan Frequency : 2 times per week *Duration : 8 Weeks *Treatments : Balance training, Manual therapy, Therapeutic exercises, Patient education, Gait training *Plan for Next Visit : Cont and push better gait, strength, and balance. Home Exercise Program/Other PT Treatment Provided : Initiated Treatment Plan/Goals Established with Patient/Caregiver : Yes Abdoulaye Augiar PT - 03/06/2023 13:08 EDT Time Spent with Patient - Outpatient PT Time In : 10:30 EST PT Time Out : 11:15 EST PT Aquatic Group Therapy Units : 1 units PT Aquatic Group Therapy Time : 15 minutes PT Aquatic Units : 2 units PT Aquatic Time : 30 minutes PT Total Timed Code Treatment Units : 2 units PT Total Timed Code Tx Minutes : 30 minutes 8 Min Rule Unit Check PT OP : 2 units PT Total Untimed Code Treatment Minutes : 15 minutes PT Total Treatment Time Rehab : 45 minutes 8 Min Rule Unit Difference PT OP : 0 Abdoulaye Aguiar PT - 03/06/2023 13:[facility] Outpatient Progress Note Entered On: 03/01/2023 10:40 EDT Performed On: 03/01/2023 10:28 EDT by Abdoulaye Aguiar PT Review/Treatments Provided Total Visit Count : 48 Visit Count Reviewed? 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 Modified metatarsal cookie to use as lateral heel wedge to encourage calcaneus into more eversion. [place] okay to patient butwill have patient use for awhile to ascertain tolerability. Attending Physician : Name: STEFAN SOTO Subjective : Patient reports she is doing her new exercises, the lateral slant board exercise has to be done at the end as it is tender. She brought in all her orthotics and materials for therapist to look at. Therapeutic Exercise : Yes Abdoulaye Aguiar PT - 03/01/2023 10:28 EDT Therapeutic Exercise Custom Therapeutic Exercise Exercise 1 Exercise 2 Exercise 3 Exercise 4 Exercise : Ankle ROM Right Towel Stretch t-band 4X Seated AROM (PF/DF)(Inv/Ev) Equipment/Device : Repetition/Time : x20 ea 20x3 KE and KF 15x2 x20 ea Resist or Assist : Red Not Performed : X HEP Given : Comment : Cosme DAWN, Abdoulaye - 03/01/2023 10:28 EDT Cosme PT, Abdoulaye - 03/01/2023 10:28 EDT Cosme PT, Abdoulaye - 03/01/2023 10:28 EDT Cosme PT, Abdoulaye - 03/01/2023 10:28 EDT Exercise 5 Exercise 6 Exercise 7 Exercise 8 Exercise : Seated Baps Standing with relaxed foot Modified tandem stand Seated Dome Equipment/Device : Repetition/Time : 10 ea 1 minute 10x2 3x10 Resist or Assist : Not Performed : X X X HEP Given : Comment : x4 way and CW/CCW Cosme DAWN, Abdoulaye 03/01/2023 10:28 EDT Cosme DAWN, Abdoulaye - 03/01/2023 10:28 EDT Cosme DAWN, Abdoulaye - 03/01/2023 10:28 EDT Cosme DAWN, Abdoulaye 03/01/2023 10:28 EDT Exercise 9 Exercise 10 Exercise 11 Exercise 12 Exercise : calcaneal distraction and mobs subtalar mobs for eversion Calcaneal eversion mobs standing Closed chain calcaneal eversion using slant board Equipment/Device : Slant board Repetition/Time : grade II grade III 4' grade II 2' 30 PWB rocking laterally into board Resist or Assist : Not Performed : X X HEP Given : Yes Comment : Cosme DAWN Abdoulaye 03/01/2023 10:28 EDT Cosme DAWN Abdoulaye 03/01/2023 10:28 EDT Cosme DAWN, Abdoulaye - 03/01/2023 10:28 EDT Cosme DAWN, Abdoulaye - 03/01/2023 10:28 EDT Education *Barriers To Learning : None evident *Teaching Method : Demonstration, Explanation Patient Education - PT Outpatient : Anatomy, Precautions reviewed Cosme DAWN Abdoulaye - 03/01/2023 10:28 EDT Assessment PT Clinical Assessment Summary : Sebastián well; will cont on trying to improve ankle mobility, tay DF and Eversion. Will see how lateral wedge works in encouraging better pronation; but this may be counter to needs of fascia and knee so will monitor symptoms. Abdoulaye Aguiar PT - 03/01/2023 10:28 EDT Plan Frequency : 2 times per week *Duration : 8 Weeks *Treatments : Balance training, Manual therapy, Therapeutic exercises, Patient education, Gait training *Plan for Next Visit : Cont to tolerance, avoiding aggravation of plantar fascia Home Exercise Program/Other PT Treatment Provided : Initiated Treatment Plan/Goals Established with Patient/Caregiver : Yes Abdoulaye Aguiar PT - 03/01/2023 10:28 EDT Time Spent with Patient - Outpatient PT Time In : 10:05 EST PT Time Out : 10:55 EST PT Therapeutic Exercise Units : 1 units PT Therapeutic Exercise Time : 20 minutes PT Orthotic Management, Train Units : 2 units PT Orthotic Management, Train Time : 30 minutes PT Total Timed Code Treatment Units : 3 units PT Total Timed Code Tx Minutes : 50 minutes 8 Min Rule Unit Check PT OP : 3 units PT Total Treatment Time Rehab : 50 minutes 8 Min Rule Unit Difference PT OP : 0 Abdoulaye Aguiar PT - 03/01/2023 10:[facility] Outpatient Progress Note Entered On: 02/27/2023 11:05 EDT Performed On: 02/27/2023 10:54 EDT by Abdoulaye Aguiar PT Review/Treatments Provided Total Visit Count : 47 Visit Count Reviewed? : Yes Diagnosis : Reason for Visit: M19.171=POST TRAUMATIC ARTHRITIS OF R ANKLE, SX 01/10/23 Attending Physician : Name: STEFAN SOTO Subjective : Patient walking without sticks at home but using them out of the house. Wants to work more on walking, trying to get foot relaxed. Says she feels better without shoes as with shoes she feels more unstable. Therapeutic Exercise : Yes Abdoulaye Aguiar PT - 02/27/2023 10:54 EDT Therapeutic Exercise Custom Therapeutic Exercise Exercise 1 Exercise 2 Exercise 3 Exercise 4 Exercise : Ankle ROM Right Towel Stretch t-band 4X Seated AROM (PF/DF)(Inv/Ev) Equipment/Device : Repetition/Time : x20 ea 20x3 KE and KF 15x2 x20 ea Resist or Assist : Red Not Performed : HEP Given : Comment : Abdoulaye Aguiar PT 02/27/2023 10:54 EDT Cosme PT, Abdoulaye 02/27/2023 10:54 EDT Cosme PT, Abdoulaye 02/27/2023 10:54 EDT Cosme PT, Abdoulaye 02/27/2023 10:54 EDT Exercise 5 Exercise 6 Exercise 7 Exercise 8 Exercise : Seated Baps Standing with relaxed foot Modified tandem stand Seated Dome Equipment/Device : Repetition/Time : 10 ea 1 minute 10x2 3x10 Resist or Assist : Not Performed : HEP Given : Comment : x4 way and CW/CCW Cosme DAWN, Abdoulaye 02/27/2023 10:54 EDT Cosme PT, Abdoulaye 02/27/2023 10:54 EDT Cosme PT, Abdoulaye 02/27/2023 10:54 EDT Cosme PT, Abdoulaye 02/27/2023 10:54 EDT Exercise 9 Exercise 10 Exercise 11 Exercise 12 Exercise : calcaneal distraction and mobs subtalar mobs for eversion Calcaneal eversion mobs standing Closed chain calcaneal eversion using slant board Equipment/Device : Slant board Repetition/Time : grade II grade III 4' grade II 2' 30 PWB rocking laterally into board Resist or Assist : Not Performed : X HEP Given : Yes Comment : Cosme DAWN Abdoulaye 02/27/2023 10:54 EDT Cosme DAWN, Abdoulaye 02/27/2023 10:54 EDT Cosme DAWN, Abdoulaye 02/27/2023 10:54 EDT Cosme DAWN, Abdoulaye 02/27/2023 10:54 EDT Education *Barriers To Learning : None evident *Teaching Method : Demonstration, Explanation Patient Education - PT Outpatient : Home exercise program - progression/modification Cosme DAWN Abdoulaye 02/27/2023 10:54 EDT Assessment PT Clinical Assessment Summary : Sebastián well; in standing/walking very limited calcaneal eversion/pronation in right ankle, however, some give noted when moblizing into calcaneal eversion with patient sidelying. Discussed possible orthotics including use of lateral heel wedge if ankle allows... might have to be done serially. Instability with shoes may be a result of higher center of gravity and give of midsole. Abdoulaye Aguiar PT - 02/27/2023 10:54 EDT Plan Frequency : 2 times per week *Duration : 8 Weeks *Treatments : Balance training, Manual therapy, Therapeutic exercises, Patient education, Gait training *Plan for Next Visit : Cont per plan Home Exercise Program/Other PT Treatment Provided : Initiated Treatment Plan/Goals Established with Patient/Caregiver : Yes Cosme LÓPEZAbdoulaye - 02/27/2023 10:54 EDT Time Spent with Patient - Outpatient PT Time In : 09:03 EST PT Time Out : 09:55 EST PT Therapeutic Exercise Units : 3 units PT Therapeutic Exercise Time : 52 minutes PT Total Timed Code Treatment Units : 3 units PT Total Timed Code Tx Minutes : 52 minutes 8 Min Rule Unit Check PT OP : 3 units PT Total Treatment Time Rehab : 52 minutes 8 Min Rule Unit Difference PT OP : 0 Abdoulaye Aguiar PT - 02/27/2023 10:[facility] Outpatient Progress Note Entered On: 02/26/2023 16:12 EDT Performed On: 02/26/2023 16:00 EDT by Mesha Elder DPT Review/Treatments Provided Total Visit Count : 46 Visit Count Reviewed? : Yes Diagnosis : Reason for Visit: M19.171=POST TRAUMATIC ARTHRITIS OF R ANKLE, SX 01/10/23 Attending Physician : Name: STEFAN SOTO Subjective : I was hurting after but it was okay. re: first aquatic session Aquatics : Yes Jerrod KATZ, Mesha - 02/26/2023 16:01 EDT Aquatic Therapy Aqua Ankle - grid Exercise 11 Exercise 1 Exercise 2 Exercise 3 Exercise : Water cycle - bench Warm-up walk Calf stretch Ankle Pumps, Ankle circles Reps/Time : 3' 3' 20x3 x20 Comment : BRITANY and MICHAEL Elder DPT, Mesha - 02/26/2023 16:13 EDT Jerrod KATZ, Mesha - 02/26/2023 16:01 EDT Jerrod KATZ, Mesha - 02/26/2023 16:01 EDT Jerrod KATZ, Mesha 02/26/2023 16:13 EDT Exercise 4 Exercise 5 Exercise 6 Exercise 7 Exercise : One leg stance Calf Raises, Other: Toe raises Other: Standing Inversion and Eversion Other: Squats Reps/Time : 10x3 x20 ea x15 ea x20 Comment : Jerrod KATZ, [facility] 02/26/2023 16:01 EDT Jerrod WHITET, [facility] 02/26/2023 16:01 EDT Jerrod KATZ, [facility] 02/26/2023 16:01 EDT Jerrod WHITET, [facility] 02/26/2023 16:01 EDT Exercise 8 Exercise 9 Exercise 10 Exercise 12 Exercise : Step-up March walk, Retro walk, Lateral walk Other: Flex, Abd, Extension of hips Other: Gait training trying to improve toe off, delaying heel off slightly. Reps/Time : x10 4w ea x15 ea 4w - 0 Comment : bottom pool step Jerrod KATZ, [facility] 02/26/2023 16:13 EDT Jerrod KATZ, [facility] 02/26/2023 16:01 EDT Jerrod KATZ, [facility] 02/26/2023 16:01 EDT Jerrod KATZ, [facility] 02/26/2023 16:13 EDT Exercise 13 Exercise : Cool down walk Reps/Time : 3' Comment : Jerrod KATZ, [place] 02/26/2023 16:13 EDT Education *Barriers To Learning : None evident *Teaching Method : Demonstration, Explanation Patient Education - PT Outpatient : Other: exercise technique Jerrod KATZ, [facility] 02/26/2023 16:13 EDT Assessment PT Response to Treatment : Tolerated well PT Clinical Assessment Summary : Pt reports less soreness following this tx compared to first aquatic session. Notes benefit with water walking and focus on mechanics. Group charge due to pt overlap. Jerrod KATZ, [place] 02/26/2023 16:13 EDT Plan Frequency : 2 times per week *Duration : 8 Weeks *Treatments : Balance training, Manual therapy, Therapeutic exercises, Patient education, Gait training *Plan for Next Visit : f/u on land; pt requesting print out of aquatic ex's Home Exercise Program/Other PT Treatment Provided : Initiated Treatment Plan/Goals Established with Patient/Caregiver : Yes Torstendwaine WHITET, [facility] 02/26/2023 16:13 EDT Time Spent with Patient - Outpatient PT Time In : 16:00 EST Torstendwaine DPT, [facility] 02/26/2023 16:01 EDT PT Time Out : 16:38 EST Torstendwaine DPT, [facility] 02/26/2023 16:13 EDT PT Aquatic Group Therapy Units : 1 units PT Aquatic Group Therapy Time : 15 minutes Jerrod DPT, [facility] 02/26/2023 16:01 EDT PT Aquatic Units : 2 units PT Aquatic Time : 23 minutes PT Total Timed Code Treatment Units : 2 units PT Total Timed Code Tx Minutes : 23 minutes 8 Min Rule Unit Check PT OP : 2 units Torstenestephaniai DPT, [place] 02/26/2023 16:13 EDT PT Total Untimed Code Treatment Minutes : 15 minutes Jerrod WHITET, [facility] 02/26/2023 16:01 EDT PT Total Treatment Time Rehab : 38 minutes Greggjj DPT, [place] 02/26/2023 16:13 EDT 8 Min Rule Unit Difference PT OP : 0 Torstendwaine WHITET, [facility] 02/26/2023 16:[address] [facility] 02-22-2023 NotePT Outpatient Progress Note Entered On: 02/22/2023 11:38 EDT Performed On: 02/22/2023 11:27 EDT by Abdoulaye Aguiar PT Review/Treatments Provided Total Visit Count : 45 Visit Count Reviewed? : Yes Pain Present : Yes actual or suspected pain Diagnosis : Reason for Visit: M19.171=POST TRAUMATIC ARTHRITIS OF R ANKLE, SX 01/10/23 Attending Physician : Name: STEFAN SOTO Subjective : Here for pool therapy as adjunct to land to work on gait and balance. Aquatics : Yes Abdoulaye Aguiar PT - 02/22/2023 11:27 EDT Pain Assessment Laterality : Right Self Report Pain : Numeric rating scale Numeric Pain Scale : 4 Numeric Pain Score : 4 Abdoulaye Aguiar PT - 02/22/2023 11:27 EDT Aquatic Therapy Aqua Ankle - grid Exercise 1 Exercise 2 Exercise 3 Exercise 4 Exercise : Warm-up walk Calf stretch Ankle Pumps, Ankle circles, Cool down walk (Comment: Inv/Eversion [Cosme DAWN, Abdoulaye 02/22/2023 11:27 EDT] ) One leg stance Reps/Time : 3' 20x3 x20 10x3 Resist/Assist : Comment : BRITANY and KF Cosme DAWN, Abdoulaye 02/22/2023 11:27 EDT Cosme PT, Abdoulaye 02/22/2023 11:27 EDT Cosme DAWN, Abdoulaye 02/22/2023 11:27 EDT Cosme PT, Abdoulaye 02/22/2023 11:27 EDT Exercise 5 Exercise 6 Exercise 8 Exercise 9 Exercise : Calf Raises, Other: squats Other: Standing Inversion and Eversion Step-up March walk, Retro walk, Lateral walk Reps/Time : x20 ea x10 ea x10 4w ea Resist/Assist : Other: small red step Comment : Cosme DAWN Abdoulaye 02/22/2023 11:27 EDT Cosme DAWN, Abdoulaye 02/22/2023 11:27 EDT Cosme DAWN, Abdoulaye 02/22/2023 11:27 EDT Cosme DAWN, Abdoulaye 02/22/2023 11:27 EDT Exercise 10 Exercise 12 Exercise 13 Exercise : Other: Flex, Abd, Extension of hips Other: Gait training trying to improve toe off, delaying heel off slightly. Water cycle - bench Reps/Time : x10 ea 4w 3' Resist/Assist : Comment : Cosme DAWN Abdoulaye 02/22/2023 11:27 EDT Cosme DAWN Abdoulaye 02/22/2023 11:27 EDT Cosme DAWN, Abdoulaye 02/22/2023 11:27 EDT Education *Barriers To Learning : None evident *Teaching Method : Demonstration, Explanation Patient Education - PT Outpatient : Home exercise program - progression/modification Cosme DAWN Abdoulaye 02/22/2023 11:27 EDT Assessment PT Clinical Assessment Summary : Sebastián first pool session okay... struggling with PF/DF due to pain at times, often released with distraction and mobs. Cosme DAWN Abdoulaye 02/22/2023 11:27 EDT Plan Frequency : 2 times per week *Duration : 8 Weeks *Treatments : Balance training, Manual therapy, Therapeutic exercises, Patient education, Gait training *Plan for Next Visit : Cont and progress to tolerance Home Exercise Program/Other PT Treatment Provided : Initiated Treatment Plan/Goals Established with Patient/Caregiver : Yes Cosme DAWN Abdoulaye - 02/22/2023 11:27 EDT Time Spent with Patient - Outpatient PT Time In : 10:00 EST PT Time Out : 10:40 EST PT Aquatic Units : 3 units PT Aquatic Time : 40 minutes PT Total Timed Code Treatment Units : 3 units PT Total Timed Code Tx Minutes : 40 minutes 8 Min Rule Unit Check PT OP : 3 units PT Total Treatment Time Rehab : 40 minutes 8 Min Rule Unit Difference PT OP : 0 TrinityAbdoulaye buckner [facility] Outpatient Progress Note Entered On: 02/21/2023 11:00 EDT Performed On: 02/21/2023 10:54 EDT by Meredith Menendez PTA Review/Treatments Provided Pain Present : Yes actual or suspected pain Subjective : Per pt, findings of nerve study indicates issues stemming from L4- L5, pt to have MRI for further diagnostic and possible affect on ankle. Pt is eager to begin gait training with LRD. Gait : Yes Meredith Menendez PTA 02/21/2023 17:53 EDT Total Visit Count : 44 Visit Count Reviewed? : Yes Diagnosis : Reason for Visit: M19.171=POST TRAUMATIC ARTHRITIS OF R ANKLE, SX 01/10/23 Attending Physician : Name: STEFAN SOTO PTA, Paula - 02/21/2023 10:54 EDT Pain Assessment Pain Location : Ankle Laterality : Right Self Report Pain : Numeric rating scale Numeric Pain Scale : 5 = Moderate pain Numeric Pain Score : 5 Meredith Menendez PTA 02/21/2023 17:53 EDT Gait Analysis PMR Ambulation Comments : Pt progressed to ambulation with B SPC this session with emphasis on symmetrical stance and proper WS. Use of mirror and video for additional feedback helpfull. Pt attemptedgait in batista with use of 1/2 wall; progressively increased confidence. Meredith Menendez PTA 02/21/2023 17:53 EDT Education *Barriers To Learning : None evident *Teaching Method : Demonstration, Explanation Patient Education - PT Outpatient : Body mechanics, Ergonomics, Introduction to aquatic rehab policies & procedures Meredith Menendez PTA 02/21/2023 17:53 EDT Assessment PT Response to Treatment : Tolerated well PT Clinical Assessment Summary : Pt educated on initiating symmetrical stance with static stand vs.R foot extended out in front and full WBing on L. Significant time spent of gait re-education and noted improvement with B canes vs. crutches or singe cane. 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 : Yes Diagnosis : Reason for Visit: M19.171=POST TRAUMATIC ARTHRITIS OF R ANKLE, SX 01/10/23 Attending Physician : Name: STEFAN SOTO Subjective : Feeling stiff with movement, having good and bad days. Therapeutic Exercise : Yes Meredith Menendez PTA 02/18/2023 16:40 EDT Therapeutic Exercise Custom Therapeutic Exercise Exercise 1 Exercise 2 Exercise 3 Exercise 4 Exercise : Ankle ROM Right Towel Stretch t-band 4X Seated AROM (PF/DF)(Inv/Ev) Repetition/Time : x20 ea 20x3 KE and KF 10x2 x20 ea Resist or Assist : Red Not Performed : HEP Given : Comment : Shon PALACIO Meredith 02/18/2023 16:40 EDT Shon PALACIO [facility] 02/18/2023 16:40 EDT Shon PALACIO [facility] 02/18/2023 16:40 EDT Shon PALACIO [facility] 02/18/2023 16:40 EDT Exercise 5 Exercise 6 Exercise 7 Exercise 8 Exercise : Seated Baps Standing with relaxed foot Modified tandem stand Seated Dome Repetition/Time : 10 ea 1 minute 10x2 3x10 Resist or Assist : Not Performed : HEP Given : Comment : x4 way and CW/CCW Shon PALACIO [facility] 02/18/2023 16:40 EDT Shon PALACIO [facility] 02/18/2023 16:40 EDT Shon PALACIO [facility] 02/18/2023 16:40 EDT Shon PALACIO [facility] 02/18/2023 16:40 EDT Exercise 9 Exercise : calcaneal distraction and mobs Repetition/Time : grade II Resist or Assist : Not Performed : X HEP Given : Yes Comment : Shon PALACIO Meredith 02/18/2023 16:40 EDT Education *Barriers To Learning : None evident *Teaching Method : Demonstration, Explanation Patient Education - PT Outpatient : N/A Shon PALACIO [facility] 02/18/2023 18:02 EDT Assessment PT Response to Treatment : Tolerated well PT Clinical Assessment Summary : Added BAPS today with good effort; very challenging. Increased attention to symmetrical stance and WS. Pt exhibits improvement with placement and control. Shon PALACIO Meredith 02/18/2023 18:02 EDT Plan Frequency : 2 times per week *Duration : 8 Weeks *Treatments : Balance training, Manual therapy, Therapeutic exercises, Patient education, Gait training *Plan for Next Visit : Begin gait training. 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 02-22-2023 NotePT Outpatient Progress Note Entered On: 02/15/2023 9:03 EDT Performed On: 02/15/2023 8:13 EDT by Abdoulaye Aguiar PT Review/Treatments Provided Total Visit Count : 43 Visit Count Reviewed? : Yes Pain Present : Yes actual or suspected pain Diagnosis : Reason for Visit: M19.171=POST TRAUMATIC ARTHRITIS OF R ANKLE, SX 01/10/23 Attending Physician : Name: STEFAN SOTO Subjective : Patient reports she has had a few rough times via increased activity but doing better in general. Therapeutic Exercise : Yes Abdoulaye Aguiar PT - 02/15/2023 8:13 EDT Pain Assessment Pain Location : Ankle Self Report Pain : Numeric rating scale Numeric Pain Scale : 3 Numeric Pain Score : 3 Abdoulaye Aguiar PT - 02/15/2023 8:13 EDT Therapeutic Exercise Custom Therapeutic Exercise Exercise 1 Exercise 2 Exercise 3 Exercise 4 Exercise : Ankle ROM Right Towel Stretch t-band 4X Seated AROM (PF/DF)(Inv/Ev) Repetition/Time : x20 ea 20x3 KE and KF 10x2 x20 ea Resist or Assist : Red Not Performed : HEP Given : Abdoulaye Aguiar PT - 02/15/2023 8:13 EDT Abdoulaey Aguiar PT - 02/15/2023 8:13 EDT Abdoulaye Aguiar PT - 02/15/2023 8:13 EDT Abdoulaye Aguiar PT - 02/15/2023 8:13 EDT Exercise 5 Exercise 6 Exercise 7 Exercise 8 Exercise : Standing Baps Standing with relaxed foot Modified tandem stand Seated Dome Repetition/Time : next 1 minute 10x2 3x10 Resist or Assist : Not Performed : HEP Given : Abdoulaye Aguiar PT - 02/15/2023 8:13 EDT Abdoulaye Aguiar PT 02/15/2023 8:13 EDT Trinitydudley PTAbdoulaye - 02/15/2023 8:13 EDT Daphnerefugio LÓPEZ Abdoulaye 02/15/2023 8:13 EDT Exercise 9 Exercise 10 Exercise : calcaneal distraction and mobs minisquat Repetition/Time : grade IIL Resist or Assist : Not Performed : X HEP Given : Yes Trinitydudley LÓPEZAbdoulaye 02/15/2023 8:13 EDT Daphnerefugio LÓPEZ Abdoulaye 02/15/2023 8:13 EDT Education *Barriers To Learning : None evident *Teaching Method : Demonstration, Explanation Patient Education - PT Outpatient : Home exercise program - progression/modification Abdoulaye Aguiar PT 02/22/2023 11:25 EDT Assessment PT Clinical Assessment Summary : Sebastián well, some discomfort right medial ankle; amb without boot. Abdoulaye Aguiar PT 02/22/2023 11:25 EDT Plan Frequency : 2 times per week *Duration : 8 Weeks *Treatments : Balance training, Manual therapy, Therapeutic exercises, Patient education, Gait training *Plan for Next Visit : Cont and progress as tolerated. Home Exercise Program/Other PT Treatment Provided : Initiated Treatment Plan/Goals Established with Patient/Caregiver : Yes Abdoulaye Aguiar PT 02/22/2023 11:25 EDT Time Spent with Patient - Outpatient PT Time In : 08:15 EST PT Time Out : 09:00 EST PT Therapeutic Exercise Units : 3 units PT Therapeutic Exercise Time : 45 minutes PT Total Timed Code Treatment Units : 3 units PT Total Timed Code Tx Minutes : 45 minutes 8 Min Rule Unit Check PT OP : 3 units PT Total Treatment Time Rehab : 45 minutes 8 Min Rule Unit Difference PT OP : 0 Abdoulaye Aguiar PT 02/22/2023 11:[address] 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 No bone fracture or dislocation. Prominent calcaneal plantar spur. SOFT TISSUES:Anterior soft tissue swelling. EFFUSION:None visible. OTHER: Negative. IMPRESSION: 1. Stable surgical changes without evidence of hardware failure or change in alignment. Electronically authenticated by: JERZY MURRIETA Date: 2023-02-20 10:43[facility]04-14-2023 NotePT Outpatient Progress Note Entered On: 02/11/2023 19:01 EDT Performed On: 02/11/2023 17:49 EDT by Meredith Menendez PTA Review/Treatments Provided Total Visit Count : 42 Visit Count Reviewed? 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 Therapeutic Exercise : Yes Manual Therapy : Yes Modalities : Yes Meredith Menendez PTA 02/11/2023 17:49 EDT Therapeutic Exercise Custom Therapeutic Exercise Exercise 1 Exercise 2 Exercise 3 Exercise 4 Exercise : Ankle ROM Right Towel Stretch t-band 4X Seated AROM (PF/DF)(Inv/Ev) Repetition/Time : x20 ea 20x3 KE and KF 10x2 x20 ea Resist or Assist : Red Not Performed : HEP Given : Comment : Meredith Menendez PTA 02/11/2023 17:49 EDT Meredith Menendez PTA 02/11/2023 17:49 EDT Meredith Menendez PTA 02/11/2023 17:49 EDT Meredith Menendez PTA 02/11/2023 17:49 EDT Exercise 5 Exercise 6 Exercise 7 Exercise 8 Exercise : Seated Baps Standing with relaxed foot Modified tandem stand Seated Dome Repetition/Time : next 1 minute 10x2 3x10 Resist or Assist : Not Performed : HEP Given : Comment : Meredith Menendez PTA 02/11/2023 17:49 EDT Meredith Mennedez PTA 02/11/2023 17:49 EDT Meredith Menendez PTA 02/11/2023 17:49 EDT Meredith Menendez PTA 02/11/2023 17:49 EDT Exercise 9 Exercise : calcaneal distraction and mobs Repetition/Time : grade II Resist or Assist : Not Performed : X HEP Given : Yes Comment : Meredith Menendez PTA 02/11/2023 17:49 EDT Manual Therapy Manual Therapy Activity 1 Activity 2 Type/Technique : Myofascial/Soft tissue mobilization Myofascial/Soft tissue mobilization Region : Other: plantar fascia right Other: R achilles Equipment/Medium : Deep prep Deep prep ShonMeredith mora PTA 02/11/2023 17:49 EDT Shon PTA Meredith 02/11/2023 17:49 EDT Modalities Modalities Activity 1 Modality : Vasopneumatic device therapy Body Region : R ankle Settings : M Minutes : 15 minutes Shonmila PALACIO Meredith 02/11/2023 17:49 EDT Education *Barriers To Learning : None evident *Teaching Method : Demonstration, Explanation Patient Education - PT Outpatient : N/A Meredith Menendez PTA 02/11/2023 17:49 EDT Assessment PT Response to Treatment : Tolerated well PT Clinical Assessment Summary : Pt responded well to vasopneumatic treatment with decreased pain and edema following session. New Menendez PTA02/11/2023 17:49 EDT Plan Frequency : 2 times per week *Duration : 8 Weeks *Treatments : Balance training, Manual therapy, Therapeutic exercises, Patient education, Gait training *Plan for Next Visit : progress as tolerated. Home Exercise Program/Other PT Treatment Provided : Initiated Treatment Plan/Goals Established with Patient/Caregiver : Yes ShonMeredith zaragoza PTA 02/11/2023 17:49 EDT Time Spent with Patient - Outpatient PT Time In : 00:00 EST PT Time Out : 00:00 EST PT Therapeutic Exercise Time : 0 minutes ADJUNCT LATIN PROFESSOR Therapeutic Exercise Units : 0 units PT Total Timed Code Treatment Units : 0 units PT Total Timed Code Tx Minutes : 0 minutes 8 Min Rule Unit Check PT OP : 0 units PT Total Treatment Time Rehab : 0 minutes 8 Min Rule Unit Difference PT OP : 0 Meredith Menendez PTA 02[facility]11/2023 [facility] Outpatient Progress Note Entered On: 02/08/2023 9:24 EDT Performed On: 02/08/2023 8:15 EDT by Abdoulaye Aguiar PT Review/Treatments Provided Total Visit Count : 41 Visit Count Reviewed? : Yes Pain Present : Yes actual or suspected pain Diagnosis : Reason for Visit: M19.171=POST TRAUMATIC ARTHRITIS OF R ANKLE, SX 01/10/23 Attending Physician : Name: BRITTANY STEFAN BROWN Subjective : Feels she is doing okay, exercises went fine at home. Therapeutic Exercise : Yes Manual Therapy : Yes Abdoulaye Aguiar PT - 02/08/2023 8:15 EDT Pain Assessment Laterality : Right Self Report Pain : Numeric rating scale Numeric Pain Scale : 4 Numeric Pain Score : 4 Abdoulaye Aguiar PT - 02/08/2023 8:15 EDT Therapeutic Exercise Custom Therapeutic Exercise Exercise 1 Exercise 2 Exercise 3 Exercise 4 Exercise : Ankle ROM Right Towel Stretch t-band 4X Seated AROM (PF/DF)(Inv/Ev) Repetition/Time : x20 ea 20x3 KE and KF 10x2 x20 ea Resist or Assist : Red Abdoulaye Aguiar PT - 02/08/2023 8:15 EDT Abdoulaye Aguiar PT - 02/08/2023 8:15 EDT Abdoulaye Aguiar PT - 02/08/2023 8:15 EDT Abdoulaye Aguiar PT 02/08/2023 8:15 EDT Exercise 5 Exercise 6 Exercise 7 Exercise 8 Exercise : Seated Baps Standing with relaxed foot Modified tandem stand Seated Dome Repetition/Time : next 1 minute 10x2 3x10 Resist or Assist : Abdoulaye Aguiar PT - 02/08/2023 8:15 EDT Abdoulaye Aguiar PT - 02/08/2023 8:15 EDT Abdoulaye Aguiar PT - 02/08/2023 8:15 EDT Abdoulaye Aguiar PT - 02/08/2023 8:15 EDT Exercise 9 Exercise : calcaneal distraction and mobs Repetition/Time : grade II Resist or Assist : Abdoulaye Aguiar PT 02/08/2023 8:15 EDT Manual Therapy Manual Therapy Activity 1 Type/Technique : Myofascial/Soft tissue mobilization Region : Other: plantar fascia right Equipment/Medium : Deep prep Abdoulaye Aguiar PT - 02/08/2023 8:15 EDT Education *Barriers To Learning : None evident *Teaching Method : Demonstration, Explanation, Printed materials Patient Education - PT Outpatient : Home exercise program - progression/modification Abdoulaye Aguiar PT 02/08/2023 8:15 EDT Assessment PT Clinical Assessment Summary : Sebastián well, did well with new exercises. Still stands with greater supination on right; calcaneus not everting well. Abdoulaye Aguiar PT - 02/08/2023 8:15 EDT Plan Frequency : 2 times per week *Duration : 8 Weeks *Treatments : Balance training, Manual therapy, Therapeutic exercises, Patient education, Gait training *Plan for Next Visit : Cont with exericise, gentle mobs, fascia massage Home Exercise Program/Other PT Treatment Provided : Initiated Treatment Plan/Goals Established with Patient/Caregiver : Yes Abdoulaye Aguiar PT - 02/08/2023 8:15 EDT Time Spent with Patient - Outpatient PT Time In : 08:15 EST PT Time Out : 09:19 EST PT Therapeutic Exercise Units : 3 units PT Therapeutic Exercise Time : 52 minutes PT Soft Tissue Mobility Units : 1 units PT Soft Tissue Mobility Time : 10 minutes PT Total Timed Code Treatment Units : 4 units PT Total Timed Code Tx Minutes : 62 minutes 8 Min Rule Unit Check PT OP : 4 units PT Total Treatment Time Rehab : 62 minutes 8 Min Rule Unit Difference PT OP : 0 Abdoulaye Aguiar PT - 02/08/2023 8:[facility]PT Outpatient Evaluation Entered On: 02/06/2023 9:04 EDT Performed On: 02/06/2023 8:20 EDT by Abdoulaye Aguiar PT Reason for Treatment Total Visit Count : 40 Patient/Family Subjective Statement : Patient pleased with progress so far since surgery. Feels sheis about 70% WB. Visit Count Reviewed? : Yes *Reason for Referral/Chief Complaint : Had surgical debridment of right ankle, removed cyst. Arrived in brace and shoe, WBAT with crutches. wants close to FWB in two weeks. Abdoulaye Aguiar PT - 02/06/2023 8:20 EDT Subjective Precautions : No Orders Qualified Diagnosis : Reason for Visit: M19.171=POST TRAUMATIC ARTHRITIS OF R ANKLE, SX 01/10/23 Pain Present : Yes actual or suspected pain Attending Physician : Name: STEFAN SOTO Pain/Functional Deficit Resulted From : Surgery Chronicity of Condition PT : Acute (less than 3 months) Affect/Behavior : Appropriate, Calm, Cooperative Orientation : Oriented x 4 Cosme DAWN Abdoulaye 02/06/2023 8:20 EDT Past Medical History, Hospitalizations, Surgeries History of Comorbidities,Personal Factor : No personal factors and/or comorbidities Rehab Problems and Meds Reviewed : Patient's problem and medication lists were reviewed Rehab Outpt Past Medical History : No Significant Medical History Cosme DAWN Abdoulaye 02/06/2023 8:20 EDT Pain Assessment Laterality : Right Quality : Aching, Dull, Throbbing Self Report Pain : Numeric rating scale Numeric Pain Scale : 5 = Moderate pain Numeric Pain Score : 5 Cosme DAWN Abdoulaye 02/06/2023 8:20 EDT Home Environment Living Environment : Home Environment No qualifying data available *Living Situation : Home Independently *Lives With : Child(ant), Spouse Lives In : Single level home 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[employer], 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, 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 Cosme DAWN Abdoulaye 02/06/2023 8:20 EDT Home Environment II Prior Functional Status Grid ADL : Independent Mobility : Independent Instrumental ADL : Independent Cognitive-Communication Skills : Independent Cosme DAWN Abdoulaye 02/06/2023 13:42 EDT Living Environment : Home Environment No qualifying data available Abdoulaye Aguiar PT 02/06/2023 8:20 EDT Therapeutic Exercise Custom Therapeutic Exercise Exercise 1 Exercise 2 Exercise 4 Exercise 6 Exercise : Ankle ROM Right Towel Stretch Seated AROM (PF/DF)(Inv/Ev) Standing with relaxed foot Repetition/Time : x20 ea 20x3 KE and KF x20 ea 1 minute Cosme DAWN Abdoulaye 02/06/2023 8:20 EDT Abdoulaye Aguiar PT 02/06/2023 8:20 EDT Abdoulaye Aguiar PT 02/06/2023 8:20 EDT Abdoulaye Aguiar PT 02/06/2023 8:20 EDT LE ROM/Strength Document LE Range Degrees : Yes Cosme DAWN Abdoulaye 02/06/2023 8:20 EDT Right Lower Extremity Strength Grid Ankle Dorsiflexion : 4 Ankle Plantarflexion : 4- Ankle Eversion : 4- Ankle Inversion : 3+ Abdoulaye Aguiar PT 02/06/2023 8:20 EDT LE ROM Degrees LLE Range of Motion (in degrees) Grid Left Ankle Dorsiflexion,Knee Extended Left Ankle Plantarflexion Range Motion Left Ankle Inversion Range Left Ankle Eversion Range Active : 12 55 21 22 Cosme PT, Abdoulaye 02/06/2023 8:20 EDT Dittrick PT, Abdoulaye 02/06/2023 8:20 EDT Dittrick PT, Abdoulaye 02/06/2023 8:20 EDT Dittrick PT, Abdoulaye 02/06/2023 8:20 EDT RLE Range of Motion (in degrees) Grid Right Ankle Dorsiflexion,Knee Extended Right Ankle Plantarflexion Range Motion Right Ankle Inversion Range Right Ankle Eversion Range Active : -6 54 12 7 Cosme PT, Abdoulaye 02/06/2023 8:20 EDT Cosme PT, Abdoulaye 02/06/2023 8:20 EDT Cosme PT, Abdoulaye 02/06/2023 8:20 EDT Trinityttrick PT, Abdoulaye 02/06/2023 8:20 EDT Education *Barriers To Learning : None evident *Teaching Method : Demonstration, Explanation, Printed materials Patient Education - PT Outpatient : Home exercise program - initiation Abdoulaye Aguiar PT 02/06/2023 13:42 EDT Falls and Education Assessment Fall In The Past Year : No Prior Level of Functioning : Other: had difficulting due to bone cyst Does Patient Have Adequate Support System : Yes Signs/Symptoms of Abuse/Neglect : No Pt. Notified of Benefits and Risks of Therapy : Yes Treatment Plan Discussed with Patient : Yes Discuss Cancel/No Show Policy : Yes Abdoulaye Aguiar PT 02/06/2023 13:42 EDT Assessment *Patient/Family Receptiveness : Good *Rehabilitation Potential : Good Impairments/Limitations : Ambulation deficits, Balance deficits, Pain limiting function, Range of motion deficits, Strength deficits PT Clinical Assessment Summary : Patient recovering from surgical excision and debridement of bone cyst in left ankle, one month out. Patient with pain, limited ROM, strength deficits, gait and balance deficits. All need addressed. Patient given basic exercises such as ROM, heel cord stretching, and standing in place with effort to keep foot relaxed into normal position (non-everted). Presentation of Characteristics PT : Sta (more content not included)...[facility]02-24-2023 NotePT Outpatient Progress Note Entered On: 12/28/2022 13:14 EST Performed On: 12/28/2022 12:57 EST by Abdoulaye Aguiar PT Review/Treatments Provided Rehab Reassessment : Reassessment Total Visit Count : 39 Visit Count Reviewed? 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 09/10/22 DF KE 2 KF 3 12/28/2022 DF KE -4 deg, KF 0 deg (decreased) Inversion 16 deg, Eversion 2 deg MMT DF 4/5, PF 4/5, Invers 4/5, eversion -4/5 sl pain Inversion nicely improved. Attending Physician : Name: FRANCIA COLLAZO Subjective : Patient was seen her original surgeon and second opinion. Original Surgeon wants to open her up, thoroughly debride, remove bone cyst and and shave tibia to remove impingement. Patient likely going for this. Abdoulaye Aguiar PT - 12/28/2022 12:57 EST Pain Assessment Pain Location : Ankle Laterality : Right Quality : Radiating, Sharp Time Pattern : Intermittent Onset : Sudden Duration : Normally amb with 2/10 pain, but onset of significant in weight bearing occurs intermittently which prevents her from walking normally, reaching 7-7/10 levels in anteromedial Talocrural joint. 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 [Abdoulaye Aguiar PT - 12/28/2022 12:57 EST] ) Date : 12/28/2022 EST Abdoulaye Aguiar PT - 12/28/2022 12:57 EST General Function Goal #1 Goal #2 Goal #3 Goal : Ambulate community distances with normal gait mechanics Return to work Ascend and descend stairs with reciprocal pattern Duration : 6 Weeks 6 Weeks 6 Weeks Status : Partially Met Not met Partially Met Date : 12/28/2022 EST (Comment: See Walking goal comment; bone cyst/impingement preventing normalization of gait. [Abdoulaye Aguiar PT - 12/28/2022 12:57 EST] ) 12/28/2022 EST 12/28/2022 EST Comment : without limitations working on 3-4 step Abdoulaye Aguiar PT - 12/28/2022 12:57 EST Abdoulaye Aguiar PT - 12/28/2022 12:57 EST Abdoulaye Aguiar PT - 12/28/2022 12:57 EST Education *Barriers To Learning : None evident *Teaching Method : Explanation Patient Education - PT Outpatient : Anatomy, Etiology of current dysfunction, Home exercise program- reinforced compliance Abdoulaye Aguiar PT 12/28/2022 12:57 EST Assessment PT Clinical Assessment Summary : Patient still stuggling with impingement in anteromedial ankle. ROM for dorsiflexion has regressed because of this despite best efforts to improve this through manualtherapy and stretching. Further therapy at this point not justified, but will be needed if patient does have surgery to correct these issues. Abdoulaye Aguiar PT 12/28/2022 12:57 EST Plan Frequency : 2 times per week *Duration : 6 Weeks *Treatments : Balance training, Therapeutic exercises, Pain Management, Posture/Body mechanics training, Gait training *Plan for Next Visit : D/C with HEP in effect. May need more therapy if surgery performed to correct impingement issue. Treatment Plan/Goals Established with Patient/Caregiver : Yes Abdoulaye Aguiar PT - 12/28/2022 12:57 EST Time Spent with Patient - Outpatient PT Time In : 09:05 EST PT Time Out : 09:45 EST PT Re-Evaluation Units, 28407 : 1 units PT Re-Evaluation Time, 92192 : 45 minutes PT Total Untimed Code Treatment Minutes : 45 minutes PT Total Treatment Time Rehab : 45 minutes Cosme PT, Abdoulaye - 12/28/2022 12:57 [facility] 12-28-2022 NotePT Outpatient Progress Note Entered On: 12/21/2022 9:14 EST Performed On: 12/21/2022 8:08 EST by Meredith Menendez PTA Review/Treatments Provided Total Visit Count : 38 Visit Count Reviewed? : Yes Diagnosis : Reason for Visit: M19.171 POST TRAUMATIC ARTHIRITIS OF RIGHT ANKLE Precautions/Special Notes : 09/05 Calf -3 KE -5 soleus INV 14, EV 5 STN 4, ff/RF 7 1st MTP 34 deg Left calf KE 5 KF 6 Strength grossly 4/5 except Inver -4/5; tenderness HL and TIB Post. 09/10/22 DF KE 2 KF 3 Attending Physician : Name: FRANCIA COLLAZO Subjective : Pt saw her surgeon last week and is planning to schedule surgery for early next month. Therapeutic Exercise : Yes Meredith Menendez PTA - 12/21/2022 8:08 EST Therapeutic Exercise Custom Therapeutic Exercise Exercise 1 Exercise 2 Exercise 3 Exercise 4 Exercise : NuStep joint mobs Talocrural and subtalar Anterior glides 1st MTP Slow reversals and hold relax stretch into extension of 1st MTP Repetition/Time : 5 Grade III 5' 3' x10 Resist or Assist : 5 Not Performed : X Comment : Shon PALACIO, Meredith - 12/21/2022 8:08 EST Shon ADJUNCT LATIN PROFESSOR, Meredith - 12/21/2022 8:08 EST Shon ADJUNCT LATIN PROFESSOR, Meerdith - 12/21/2022 8:08 EST Shon ADJUNCT LATIN PROFESSOR, Meredith - 12/21/2022 8:08 EST Exercise 5 Exercise 6 Exercise 7 Exercise 8 Exercise : Small knee bends for dynamic achilles stretch slant board stretch T- band Posterior Tib; Tib Anterior Gait training Repetition/Time : 10 30 x 3* 15x2 Resist or Assist : red Not Performed : X X Comment : *Knee extended and then bent shorter stride to normalize patter. Meredith Menendez PTA - 12/21/2022 8:08 EST Shon ADJUNCT LATIN PROFESSOR, Meredith - 12/21/2022 8:08 EST Shon ADJUNCT LATIN PROFESSOR, Meredith - 12/21/2022 8:08 EST Shon ADJUNCT LATIN PROFESSOR, Meredith - 12/21/2022 8:08 EST Exercise 9 Exercise 10 Exercise 11 Exercise 12 Exercise : Forward step downs Half dome PF/DF, INV/EV, CW/CCW Bilateral FWD stretch LAQ/ HS curls Repetition/Time : Resist or Assist : 2.5#/green Not Performed : X Comment : 2 then 4 tibial FWD translation Shon ADJUNCT LATIN PROFESSOR, Meredith 12/21/2022 8:08 EST Shon ADJUNCT LATIN PROFESSOR, Meredith 12/21/2022 8:08 EST Shon ADJUNCT LATIN PROFESSOR, Meredith 12/21/2022 8:08 EST Shon ADJUNCT LATIN PROFESSOR, Meredith 12/21/2022 8:08 EST Exercise 13 Exercise 14 Exercise 15 Exercise 16 Exercise : distraction and t/s and subtalar mobs Upright bike True [place] Strap Calf Stretch KE andKF Repetition/Time : 10' 30x3 Resist or Assist : grade III 3 115# Not Performed : X X X Comment : Shon ADJUNCT LATIN PROFESSOR, Meredith 12/21/2022 8:08 EST Shon ADJUNCT LATIN PROFESSOR, Meredith 12/21/2022 8:08 EST Shon ADJUNCT LATIN PROFESSOR, Meredith 12/21/2022 8:08 EST Shon ADJUNCT LATIN PROFESSOR, Meredith 12/21/2022 8:08 EST Exercise 17 Exercise 18 Exercise 20 Exercise 21 Exercise : Half dome PWB alphabet 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, 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; athletic tape to foot to relieve PF and to soleus WS with metronome Repetition/Time : done 10' Resist or Assist : Not Performed : X Comment : Shon ADJUNCT LATIN PROFESSOR, Meredith 12/21/2022 8:08 EST Shon ADJUNCT LATIN PROFESSOR, Meredith 12/21/2022 8:08 EST Shon ADJUNCT LATIN PROFESSOR, Meredith 12/21/2022 8:08 EST Shon ADJUNCT LATIN PROFESSOR, Meredith 12/21/2022 8:08 EST Exercise 22 Exercise : Gait trianing with metronome Repetition/Time : 15' Resist or Assist : Not Performed : X Comment : Shon ADJUNCT LATIN PROFESSOR, Meredith 12/21/2022 8:08 EST Education *Barriers To Learning : None evident *Teaching Method : Demonstration, Explanation Patient Education - PT Outpatient : N/A Shon ADJUNCT LATIN PROFESSOR, Meredith 12/21/2022 8:08 EST Assessment PT Response to Treatment : Tolerated well PT Clinical Assessment Summary : Reviewed HEP and POC with pt. Pt demonstrates 100% skill and comprehension with HEP. Meredith Menendez PTA - 12/21/2022 8:08 EST Plan Frequency : 2 times per week *Duration : 6 Weeks *Treatments : Balance training, Therapeutic exercises, Pain Management, Posture/Body mechanics training, Gait training *Plan for Next Visit : Discuss plan for DC, resuming after surgery. Treatment Plan/Goals Established with Patient/Caregiver : Yes Meredith Menendez PTA - 12/21/2022 8:08 EST Time Spent with Patient - Outpatient PT Time In : 00:00 EST PT Time Out : 00:00 EST PT Therapeutic Exercise Time : 0 minutes ADJUNCT LATIN PROFESSOR Therapeutic Exercise Units : 0 units PT Total Timed Code Treatment Units : 0 units PT Total Timed Code Tx Minutes : 0 minutes 8 Min Rule Unit Check PT OP : 0 units PT Total Treatment Time Rehab : 0 minutes 8 Min Rule Unit Difference PT OP : 0 Meredith Menendez PTA 12/21/2022 8:08 [facility] 12-28-2022 NotePT Outpatient Progress Note Entered On: 12/07/2022 14:32 EST Performed On: 12/07/2022 13:29 EST by Meredith Menendez PTA Review/Treatments Provided Total Visit Count : 36 Visit Count Reviewed? : Yes Diagnosis : Reason for Visit: M19.171 POST TRAUMATIC ARTHIRITIS OF RIGHT ANKLE Precautions/Special Notes : 09/05 Calf -3 KE -5 soleus INV 14, EV 5 STN 4, ff/RF 7 1st MTP 34 deg Left calf KE 5 KF 6 Strength grossly 4/5 except Inver -4/5; tenderness HL and TIB Post. 09/10/22 DF KE 2 KF 3 Attending Physician : Name: FRANCIA COLLAZO Subjective : Pt feeling better today but states her plantar fasciitis is painful today. Also presenting with increased edema. Therapeutic Exercise : Yes Meredith Menendez PTA - 12/07/2022 13:29 EST Therapeutic Exercise Custom Therapeutic Exercise Exercise 1 Exercise 2 Exercise 3 Exercise 4 Exercise : NuStep joint mobs Talocrural and subtalar Anterior glides 1st MTP Slow reversals and hold relax stretch into extension of 1st MTP Repetition/Time : 5 Grade III 5' x10 Resist or Assist : 5 Not Performed : X Comment : Meredith Menendez PTA - 12/07/2022 13:29 EST Shon ADJUNCT LATIN PROFESSOR, Meredith - 12/07/2022 13:29 EST Shon ADJUNCT LATIN PROFESSOR, Meredith - 12/07/2022 13:29 EST Shon ADJUNCT LATIN PROFESSOR, 12/07/2022 13:29 EST Exercise 5 Exercise 6 Exercise 7 Exercise 8 Exercise : Small knee bends for dynamic achilles stretch slant board stretch T- band Posterior Tib; Tib Anterior Gait training Repetition/Time : 10 30 x 3* 15x2 Resist or Assist : red Not Performed : X Comment : *Knee extended and then bent shorter stride to normalize patter. Shon ADJUNCT LATIN PROFESSOR, Meredith 12/07/2022 13:29 EST Shon ADJUNCT LATIN PROFESSOR, Meredith - 12/07/2022 13:29 EST Shon ADJUNCT LATIN PROFESSOR, 12/07/2022 13:29 EST Shon ADJUNCT LATIN PROFESSOR, Meredith - 12/07/2022 13:29 EST Exercise 9 Exercise 10 Exercise 11 Exercise 12 Exercise : Forward step downs Half dome PF/DF, INV/EV, CW/CCW Bilateral FWD stretch LAQ/ HS curls Repetition/Time : Resist or Assist : 2.5#/green Not Performed : X Comment : 2 then 4 tibial FWD translation Shon ADJUNCT LATIN PROFESSOR, Meredith - 12/07/2022 13:29 EST Shon ADJUNCT LATIN PROFESSOR, Meredith - 12/07/2022 13:29 EST Shon ADJUNCT LATIN PROFESSOR, Meredith - 12/07/2022 13:29 EST Shon ADJUNCT LATIN PROFESSOR, Meredith - 12/07/2022 13:29 EST Exercise 13 Exercise 14 Exercise 15 Exercise 16 Exercise : distraction and t/s and subtalar mobs Upright bike True [place] Strap Calf Stretch KE andKF Repetition/Time : 10' 30x3 Resist or Assist : grade III 3 115# Not Performed : X X X Comment : Shon ADJUNCT LATIN PROFESSOR, Meredith 12/07/2022 13:29 EST Shon ADJUNCT LATIN PROFESSOR, Meredith - 12/07/2022 13:29 EST Shon ADJUNCT LATIN PROFESSOR, Meredith - 12/07/2022 13:29 EST Shon ADJUNCT LATIN PROFESSOR, Meredith - 12/07/2022 13:29 EST Exercise 17 Exercise 18 Exercise 20 Exercise 21 Exercise : Half dome PWB alphabet 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, 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; athletic tape to foot to relieve PF and to soleus WS with metronome Repetition/Time : done 10' Resist or Assist : Not Performed : X Comment : Meredith Menendez PTA 12/07/2022 13:29 EST Shon PALACIO Meredith 12/07/2022 13:29 EST Shon PALACIO, Meredith 12/07/2022 13:29 EST New Menendez PTAa 12/07/2022 13:29 EST Exercise 22 Exercise : Gait trianing with metronome Repetition/Time : 15' Resist or Assist : Not Performed : X Comment : Meredith Menendez PTA 12/07/2022 13:29 EST Education *Barriers To Learning : None evident *Teaching Method : Demonstration, Explanation Patient Education - PT Outpatient : N/A Meredith Menendez PTA 12/07/2022 13:29 EST Assessment PT Response to Treatment : Tolerated well PT Clinical Assessment Summary : Pt demonstrated improvement in normalizing gait with progressive trials this visit. Educated on avoiding overcorrection of foot placement at weight acceptace. Shon PALACIO Meredith 12/07/2022 13:29 EST Plan Frequency : 2 times per week *Duration : 6 Weeks *Treatments : Balance training, Therapeutic exercises, Pain Management, Posture/Body mechanics training, Gait training *Plan for Next Visit : continue with gait training to further normalize. Treatment Plan/Goals Established with Patient/Caregiver : Yes Meredith Menendez PTA 12/07/2022 13:29 EST Time Spent with Patient - Outpatient PT Time In : 00:00 EST PT Time Out : 00:00 EST PT Therapeutic Exercise Time : 0 minutes ADJUNCT LATIN PROFESSOR Therapeutic Exercise Units : 0 units PT Total Timed Code Treatment Units : 0 units PT Total Timed Code Tx Minutes : 0 minutes 8 Min Rule Unit Check PT OP : 0 units PT Total Treatment Time Rehab : 0 minutes 8 Min Rule Unit Difference PT OP : 0 PMR Chart Review : Yes Meredith Menendez PTA [facility] Progress Note Entered On: 12/12/2022 13:29 EST Performed On: 12/12/2022 13:19 EST by Abdoulaye Aguiar PT Review/Treatments Provided Total Visit Count : 37 Visit Count Reviewed? : Yes Pain Present : Yes actual or suspected pain Diagnosis : Reason for Visit: M19.171 POST TRAUMATIC ARTHIRITIS OF RIGHT ANKLE Precautions/Special Notes : 09/05 Calf -3 KE -5 soleus INV 14, EV 5 STN 4, ff/RF 7 1st MTP 34 deg Left calf KE 5 KF 6 Strength grossly 4/5 except Inver -4/5; tenderness HL and TIB Post. 09/10/22 DF KE 2 KF 3 Attending Physician : Name: FRANCIA COLLAZO Subjective : Plantar fascia feeling better, most of pain getting her in anteromedial aspect. Can sometime walk without much pain then suddeny can't due to pain in talar area. Therapeutic Exercise : Yes Manual Therapy : Yes Abdoulaye Aguiar PT - 12/12/2022 13:19 EST Pain Assessment Pain Location : Ankle Laterality : Right Self Report Pain : Numeric rating scale Numeric Pain Scale : 4 Numeric Pain Score : 4 Abdoulaye Aguiar PT - 12/12/2022 13:19 EST Therapeutic Exercise Custom Therapeutic Exercise Exercise 1 Exercise 2 Exercise 3 Exercise 4 Exercise : NuStep joint mobs Talocrural and subtalar Anterior glides 1st MTP Slow reversals and hold relax stretch into extension of 1st MTP Repetition/Time : 5 Grade III 5' 3' x10 Resist or Assist : 5 Not Performed : X Comment : Abdoulaye Aguiar PT - 12/12/2022 13:19 EST Abdoulaye Aguiar PT - 12/12/2022 13:19 EST Abdoulaye Aguiar PT - 12/12/2022 13:19 EST Abdoulaye Aguiar PT - 12/12/2022 13:19 EST Exercise 5 Exercise 6 Exercise 7 Exercise 8 Exercise : Small knee bends for dynamic achilles stretch slant board stretch T- band Posterior Tib; Tib Anterior Gait training Repetition/Time : 10 30 x 3* 15x2 Resist or Assist : red Not Performed : X X Comment : *Knee extended and then bent shorter stride to normalize patter. Abdoulaye Aguiar PT - 12/12/2022 13:19 EST Erwin Aguiar PTe - 12/12/2022 13:19 EST Mirza Aguiar PTnie - 12/12/2022 13:19 EST Mirza Aguiar PTnie - 12/12/2022 13:19 EST Exercise 9 Exercise 10 Exercise 11 Exercise 12 Exercise : Forward step downs Half dome PF/DF, INV/EV, CW/CCW Bilateral FWD stretch LAQ/ HS curls Repetition/Time : Resist or Assist : 2.5#/green Not Performed : X Comment : 2 then 4 tibial FWD translation Trinitydudley PT, Abdoulaye - 12/12/2022 13:19 EST Trinityttrick PT, Abdoulaye - 12/12/2022 13:19 EST Trinityttrick PT, Abdoulaye - 12/12/2022 13:19 EST Dittrick PT, Abdoulaye - 12/12/2022 13:19 EST Exercise 13 Exercise 14 Exercise 15 Exercise 16 Exercise : distraction and t/s and subtalar mobs Upright bike True [place] Strap Calf Stretch KE andKF Repetition/Time : 10' 30x3 Resist or Assist : grade III 3 115# Not Performed : X X X Comment : Cosme PT, Abdoulaye - 12/12/2022 13:19 EST Cosme PT, Abdoulaye - 12/12/2022 13:19 EST Trinityttrick PT, Abdoulaye - 12/12/2022 13:19 EST Daphnerick PT, Abdoulaye - 12/12/2022 13:19 EST Exercise 17 Exercise 18 Exercise 20 Exercise 21 Exercise : Half dome PWB alphabet 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, 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; athletic tape to foot to relieve PF and to soleus WS with metronome Repetition/Time : done 10' Resist or Assist : Not Performed : X Comment : Cosme PT, Abdoulaye - 12/12/2022 13:19 EST Trinityttrick PT, Abdoulaye - 12/12/2022 13:19 EST Trinityttrick PT, Abdoulaye - 12/12/2022 13:19 EST Trinityttrick PT, Abdoulaye - 12/12/2022 13:19 EST Exercise 22 Exercise : Gait trianing with metronome Repetition/Time : 15' Resist or Assist : Not Performed : X Comment : Cosme PT, Abdoulaye - 12/12/2022 13:19 EST Manual Therapy Manual Therapy Activity 1 Activity 2 Activity 3 Type/Technique : Myofascial/Soft tissue mobilization IASTM, Myofascial/Soft tissue mobilization Other: Cupping Region : Other: achilles, gastroc and soleus Other: plantar fascia Other: R calf and ankle Equipment/Medium : Deep prep Descriptor : 15 n10 no Abdoulaye Aguiar PT - 12/12/2022 13:19 EST Abdoulaye Aguiar PT - 12/12/2022 13:19 EST Abdoulaye Aguiar PT - 12/12/2022 13:19 EST Education *Barriers To Learning : None evident *Teaching Method : Explanation Patient Education - PT Outpatient : Home exercise program - progression/modification Abdoulaye Aguiar PT - 12/12/2022 13:19 EST Assessment PT Clinical Assessment Summary : Worked a lot on calf and ankle to gain mobility, tay into DF. Still considerable resistance to post glides. Have noticed better pronation. Soleus still needs work. Also worked on Plantar fascia today, finishing with slant board stretch. Patient to see a new doctor here at [facility] for consult regarding cyst and her options. Abdoulaye Aguiar PT - 12/12/2022 13:19 EST Plan Frequency : 2 times per week *Duration : 6 Weeks *Treatments : Balance training, Therapeutic exercises, Pain Management, Posture/Body mechanics training, Gait training *Plan for Next Visit : Cont per plan, this therapist will be back end of the month (more content not included)...[facility]02-01-2023 NotePT Outpatient Progress Note Entered On: 12/05/2022 10:08 EST Performed On: 12/05/2022 9:02 EST by Abdoulaye Aguiar PT Review/Treatments Provided Therapeutic Exercise : Yes Modalities : Yes Abdoulaye Aguiar PT - 12/05/2022 13:22 EST Total Visit Count : 35 Visit Count Reviewed? : Yes Pain Present : Yes actual or suspected pain Diagnosis : Reason for Visit: M19.171 POST TRAUMATIC ARTHIRITIS OF RIGHT ANKLE Precautions/Special Notes : 09/05 Calf -3 KE -5 soleus INV 14, EV 5 STN 4, ff/RF 7 1st MTP 34 deg Left calf KE 5 KF 6 Strength grossly 4/5 except Inver -4/5; tenderness HL and TIB Post. 09/10/22 DF KE 2 KF 3 Attending Physician : Name: FRANCIA COLLAZO Subjective : Had a great day last session, but has not been as good, tay today where she is experiencing pain anteromedial ankle (Talus) and shooting up to proximal tibia. Manual Therapy : Yes Cosme DAWN, Abdoulaye - 12/05/2022 9:02 EST Pain Assessment Pain Location : Ankle Laterality : Right Self Report Pain : Numeric rating scale Numeric Pain Scale : 6 Numeric Pain Score : 6 Cosme DAWN, Abdoulaye - 12/05/2022 9:02 EST Therapeutic Exercise Custom Therapeutic Exercise Exercise 1 Exercise 2 Exercise 3 Exercise 4 Exercise : NuStep joint mobs Talocrural and subtalar Anterior glides 1st MTP Slow reversals and hold relax stretch into extension of 1st MTP Repetition/Time : 5 Grade III 5' x10 Resist or Assist : 5 Not Performed : X Comment : Cosme PT, Abdoulaye - 12/05/2022 13:22 EST Cosme PT, Abdoulaye - 12/05/2022 13:22 EST Cosme PT, Abdoulaye - 12/05/2022 13:22 EST Cosme PT, Abdoulaye - 12/05/2022 13:22 EST Exercise 5 Exercise 6 Exercise 7 Exercise 8 Exercise : Small knee bends for dynamic achilles stretch slant board stretch T- band Posterior Tib; Tib Anterior Gait training Repetition/Time : 10 30 x 3* 15x2 Resist or Assist : red Not Performed : X Comment : *Knee extended and then bent shorter stride to normalize patter. Daphnerefugio PT, Abdoulaye - 12/05/2022 13:22 EST Cosme PT, Abdoulaye - 12/05/2022 13:22 EST Cosme PT, Abdoulaye - 12/05/2022 13:22 EST Cosme PT, Abdoulaye - 12/05/2022 13:22 EST Exercise 9 Exercise 10 Exercise 11 Exercise 12 Exercise : Forward step downs Half dome PF/DF, INV/EV, CW/CCW Bilateral FWD stretch LAQ/ HS curls Repetition/Time : Resist or Assist : 2.5#/green Not Performed : X Comment : 2 then 4 tibial FWD translation Cosme PT, Abdoulaye - 12/05/2022 13:22 EST Cosme PT, Abdoulaye - 12/05/2022 13:22 EST Cosme PT, Abdoulaye - 12/05/2022 13:22 EST Cosme PT, Abdoulaye - 12/05/2022 13:22 EST Exercise 13 Exercise 14 Exercise 15 Exercise 16 Exercise : distraction and t/s and subtalar mobs Upright bike True [place] Strap Calf Stretch KE andKF Repetition/Time : 10' 30x3 Resist or Assist : grade III 3 115# Not Performed : X X X Comment : Cosme DAWN, Abdoulaye - 12/05/2022 13:22 EST Cosme PT, Abdoulaye - 12/05/2022 13:22 EST Cosme PT, Abdoulaye - 12/05/2022 13:22 EST Cosme PT, Abdoulaye - 12/05/2022 13:22 EST Exercise 17 Exercise 18 Exercise 20 Exercise 21 Exercise : Half dome PWB alphabet 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, 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; athletic tape to foot to relieve PF and to soleus WS with metronome Repetition/Time : done 10' Resist or Assist : Not Performed : X Comment : Cosme DAWN Abdoulaye - 12/05/2022 13:22 EST Cosme PT, Abdoulaye - 12/05/2022 13:22 EST Cosme PT, Abdoulaye - 12/05/2022 13:22 EST Cosme PT, Abdoulaye - 12/05/2022 13:22 EST Exercise 22 Exercise : Gait trianing with metronome Repetition/Time : 15' Resist or Assist : Not Performed : X Comment : Cosme DAWN Abdoulaye - 12/05/2022 13:22 EST Manual Therapy Manual Therapy Activity 1 Activity 2 Activity 3 Type/Technique : Myofascial/Soft tissue mobilization IASTM, Myofascial/Soft tissue mobilization Other: Cupping Region : Other: achilles, gastroc and soleus Other: plantar fascia Other: R calf and ankle Equipment/Medium : Deep prep Descriptor : 10 no no Cosme DAWN Abdoulaye - 12/05/2022 9:02 EST Cosme DAWN Abdoulaye - 12/05/2022 13:22 EST Cosme DAWN, Abdoulaye - 12/05/2022 13:22 EST Modalities Modalities Activity 1 Activity 2 Modality : Iontophoresis Ice massage Body Region : superior-ant talus kaleb Settings : 14 hour patch Cosme DAWN Abdoulaye - 12/05/2022 13:22 EST Cosme PT, Abdoulaye - 12/05/2022 13:22 EST Education *Barriers To Learning : None evident *Teaching Method : Demonstration, Explanation Patient Education - PT Outpatient : Home exercise program - progression/modification Cosme DAWN, Abdoulaye - 12/05/2022 13:22 EST Assessment PT Clinical Assessment Summary : Sebastián well; as patient was pretty sore in talo- crural joint, Ice massage and ionto done to superior talar area; still worked on calf to mobiize and stretch. Patient able to walk better after treatment. Cosme DAWN, Abdoulaye - 12/05/2022 13:22 EST Plan Frequency : 2 times per week *Duration : 6 Weeks *Treatments : Balanc (more content not included)...[facility]02-01-2023 NotePT Outpatient Progress Note Entered On: 11/30/2022 17:34 EST Performed On: 11/30/2022 16:41 EST by Meredith Menendez PTA Review/Treatments Provided Total Visit Count : 34 Visit Count Reviewed? : Yes Diagnosis : Reason for Visit: M19.171 POST TRAUMATIC ARTHIRITIS OF RIGHT ANKLE Precautions/Special Notes : 09/05 Calf -3 KE -5 soleus INV 14, EV 5 STN 4, ff/RF 7 1st MTP 34 deg Left calf KE 5 KF 6 Strength grossly 4/5 except Inver -4/5; tenderness HL and TIB Post. 09/10/22 DF KE 2 KF 3 Attending Physician : Name: FRANCIA COLLAZO Subjective : Pt states the plantar fasciitis is no better but no worse. Was able to perform many activities and walked without the cane most of the day. Therapeutic Exercise : Yes Manual Therapy : Yes Meredith Menendez PTA - 11/30/2022 16:41 EST Therapeutic Exercise Custom Therapeutic Exercise Exercise 1 Exercise 2 Exercise 3 Exercise 4 Exercise : NuStep joint mobs Talocrural and subtalar Anterior glides 1st MTP Slow reversals and hold relax stretch into extension of 1st MTP Repetition/Time : 5 Grade III 5' x10 Resist or Assist : 5 Not Performed : X Comment : Meredith Menendez PTA - 11/30/2022 16:41 EST Meredith Menendez PTA - 11/30/2022 16:41 EST Shon ADJUNCT LATIN PROFESSOR, 11/30/2022 16:41 EST Shon ADJUNCT LATIN PROFESSOR, 11/30/2022 16:41 EST Exercise 5 Exercise 6 Exercise 7 Exercise 8 Exercise : Small knee bends for dynamic achilles stretch slant board stretch Eccentric T-band Posterior Tib Gait training Repetition/Time : 10 30 x 3* 10x2 HEP Resist or Assist : red Not Performed : X X Comment : *Knee extended and then bent shorter stride to normalize patter. Shon ADJUNCT LATIN PROFESSOR, 11/30/2022 16:41 EST Shon ADJUNCT LATIN PROFESSOR, 11/30/2022 16:41 EST Shon ADJUNCT LATIN PROFESSOR, 11/30/2022 16:41 EST Shon ADJUNCT LATIN PROFESSOR, 11/30/2022 16:41 EST Exercise 9 Exercise 10 Exercise 11 Exercise 12 Exercise : Forward step downs Half dome PF/DF, INV/EV, CW/CCW Bilateral FWD stretch LAQ/ HS curls Repetition/Time : Resist or Assist : 2.5#/green Not Performed : X Comment : 2 then 4 tibial FWD translation Shon ADJUNCT LATIN PROFESSOR, Meredith - 11/30/2022 16:41 EST Shon ADJUNCT LATIN PROFESSOR, Meredith - 11/30/2022 16:41 EST Shon ADJUNCT LATIN PROFESSOR, 11/30/2022 16:41 EST Shon ADJUNCT LATIN PROFESSOR, 11/30/2022 16:41 EST Exercise 14 Exercise 15 Exercise 16 Exercise 17 Exercise : Upright bike True [place] Strap Calf Stretch KE and KF Half dome PWB alphabet Repetition/Time : 30x3 Resist or Assist : 3 115# Not Performed : X X X Comment : Shon ADJUNCT LATIN PROFESSOR, Meredith - 11/30/2022 16:41 EST Shon ADJUNCT LATIN PROFESSOR, Meredith - 11/30/2022 16:41 EST Shon ADJUNCT LATIN PROFESSOR, Meredith - 11/30/2022 16:41 EST Shon ADJUNCT LATIN PROFESSOR, 11/30/2022 16:41 EST Exercise 18 Exercise 20 Exercise 21 Exercise 22 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, 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; athletic tape to foot to relieve PF and to soleus WS with metronome Gait trianing with metronome Repetition/Time : done 10' 15' Resist or Assist : Not Performed : X X Comment : Shon ADJUNCT LATIN PROFESSOR, Meredith - 11/30/2022 16:41 EST Shon PALACIO, Meredith - 11/30/2022 16:41 EST Shon PALACIO, 11/30/2022 16:41 EST Shon PALACIO, 11/30/2022 16:41 EST Manual Therapy Manual Therapy Activity 1 Activity 2 Activity 3 Type/Technique : Myofascial/Soft tissue mobilization IASTM, Myofascial/Soft tissue mobilization Other: Cupping Region : Other: achilles, gastroc and soleus Other: plantar fascia Other: R calf and ankle Equipment/Medium : Deep prep Descriptor : 10 Shon PALACIO, Meredith 11/30/2022 16:41 EST Shon PALACIO, 11/30/2022 16:41 EST Shon PALACIO, 11/30/2022 16:41 EST Education *Barriers To Learning : None evident *Teaching Method : Demonstration, Explanation Patient Education - PT Outpatient : N/A Shon PALACIO 11/30/2022 16:41 EST Assessment PT Response to Treatment : Tolerated well PT Clinical Assessment Summary : Pt demonstrated significant improvement in gait mechanics this session. Pt was able to keep symmetrical timing of stride in sync with metronome beats. Shon PALACIO 11/30/2022 16:41 EST Plan Frequency : 2 times per week *Duration : 6 Weeks *Treatments : Balance training, Therapeutic exercises, Pain Management, Posture/Body mechanics training, Gait training *Plan for Next Visit : Continue gait training. Treatment Plan/Goals Established with Patient/Caregiver : Yes Shon PALACIO Meredith 11/30/2022 16:41 EST Time Spent with Patient - Outpatient PT Time In : 00:00 EST PT Time Out : 00:00 EST PT Therapeutic Exercise Time : 0 minutes ADJUNCT LATIN PROFESSOR Therapeutic Exercise Units : 0 units PT Total Timed Code Treatment Units : 0 units PT Total Timed Code Tx Minutes : 0 minutes 8 Min Rule Unit Check PT OP : 0 units PT Total Treatment Time Rehab : 0 minutes 8 Min Rule Unit Difference PT OP : 0 New Menendez [facility]a [facility] Progress Note Entered On: 11/28/2022 10:15 EST Performed On: 11/28/2022 8:57 EST by Abdoulaye Aguiar PT Review/Treatments Provided Total Visit Count : 33 Visit Count Reviewed? : Yes Pain Present : Yes actual or suspected pain Diagnosis : Reason for Visit: M19.171 POST TRAUMATIC ARTHIRITIS OF RIGHT ANKLE Precautions/Special Notes : 09/05 Calf -3 KE -5 soleus INV 14, EV 5 STN 4, ff/RF 7 1st MTP 34 deg Left calf KE 5 KF 6 Strength grossly 4/5 except Inver -4/5; tenderness HL and TIB Post. 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 Pt considering getting second opinion. Fascitis not as painful last few days. Still stretching and exercising. Therapeutic Exercise : Yes Manual Therapy : Yes Modalities : Yes Abdoulaye Aguiar PT - 11/28/2022 8:57 EST Pain Assessment Pain Location : Ankle Self Report Pain : Numeric rating scale Numeric Pain Scale : 3 Numeric Pain Score : 3 Abdoulaye Aguiar PT - 11/28/2022 8:57 EST Therapeutic Exercise Custom Therapeutic Exercise Exercise 1 Exercise 2 Exercise 3 Exercise 4 Exercise : NuStep joint mobs Talocrural and subtalar Anterior glides 1st MTP Slow reversals and hold relax stretch into extension of 1st MTP Repetition/Time : 5 Grade III 5' x10 Resist or Assist : 5 Not Performed : X Comment : Abdoulaye Aguiar PT - 11/28/2022 8:57 EST Abdoulaye Aguiar PT - 11/28/2022 8:57 EST Abdoulaye Aguiar PT - 11/28/2022 8:57 EST Abdoulaye Aguiar PT - 11/28/2022 8:57 EST Exercise 5 Exercise 6 Exercise 7 Exercise 8 Exercise : Small knee bends for dynamic achilles stretch slant board stretch Eccentric T-band Posterior Tib Gait training Repetition/Time : 10 30 x 3* 10x2 HEP Resist or Assist : red Not Performed : X X Comment : *Knee extended and then bent shorter stride to normalize patter. Abdoulaye Aguiar PT - 11/28/2022 8:57 EST Abdoulaye Aguiar PT - 11/28/2022 8:57 EST Abdoulaye Aguiar PT - 11/28/2022 8:57 EST Dittrick PT, Abdoulaye - 11/28/2022 8:57 EST Exercise 9 Exercise 10 Exercise 11 Exercise 12 Exercise : Forward step downs Half dome PF/DF, INV/EV, CW/CCW Bilateral FWD stretch LAQ/ HS curls Repetition/Time : Resist or Assist : 2.5#/green Not Performed : X Comment : 2 then 4 tibial FWD translation Dittrick PT, Abdoulaye - 11/28/2022 8:57 EST Dittrick PT, Abdoulaye - 11/28/2022 8:57 EST Dittrick PT, Abdoulaye - 11/28/2022 8:57 EST Dittrick PT, Abdoulaye 11/28/2022 8:57 EST Exercise 14 Exercise 15 Exercise 16 Exercise 17 Exercise : Upright bike True [place] Strap Calf Stretch KE and KF Half dome PWB alphabet Repetition/Time : 30x3 Resist or Assist : 3 115# Not Performed : X X X Comment : Cosme PT, Abdoulaye - 11/28/2022 8:57 EST Dittrick PT, Abdoulaye - 11/28/2022 8:57 EST Dittrick PT, Abdoulaye - 11/28/2022 8:57 EST Dittrick PT, Abdoulaye - 11/28/2022 8:57 EST Exercise 18 Exercise 20 Exercise 21 Exercise 22 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, 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; athletic tape to foot to relieve PF and to soleus WS with metronome Gait trianing with metronome Repetition/Time : done 10' 15' Resist or Assist : Not Performed : X X Comment : Trinityttrick PT, Abdoulaye - 11/28/2022 8:57 EST Dittrick PT, Abdoulaye - 11/28/2022 8:57 EST Dittrick PT, Abdoulaye - 11/28/2022 8:57 EST Dittrick PT, Abdoulaye 11/28/2022 8:57 EST Manual Therapy Manual Therapy Activity 1 Activity 2 Activity 3 Type/Technique : Myofascial/Soft tissue mobilization IASTM, Myofascial/Soft tissue mobilization Other: Cupping Region : Other: achilles, gastroc and soleus Other: plantar fascia Other: R calf and ankle Equipment/Medium : Deep prep Descriptor : 15 10 Abdoulaye Aguiar PT - 11/28/2022 8:57 EST Cosme DAWN, Abdoulaye - 11/28/2022 8:57 EST Cosme DAWN, Abdoulaye - 11/28/2022 8:57 EST Modalities Modalities Activity 1 Modality : Iontophoresis Body Region : superior-ant med mall Settings : 14 hour patch Abdoulaye Aguiar PT - 11/28/2022 8:57 EST Taping/Bandaging/Strapping Taping/Bandaging/Strapping Grid Activity 1 Activity 2 Technique : Adhesive taping Adhesive taping Rationale : Reduce/Correct limitations/deformities Pain management, Reduce/Correct limitations/deformities Region : Other: soleus and gastroc Right foot Tape Type : Kinesiotape Athletic tape Cosme DAWN Abdoulaye - 11/28/2022 8:57 EST Cosme DAWN, Abdoulaye - 11/28/2022 8:57 EST Education *Barriers To Learning : None evident *Teaching Method : Explanation Patient Education - PT Outpatient : Anatomy, Body mechanics Cosme DAWN, Abdoulaye - 11/28/2022 8:57 EST Assessment PT Clinical Assessment Summary : Sebastián well; patient had many questions regarding next step regardingbone cyst; wants to pursue 2nd opinion before having cyst worked on. Used kinesiotape to reduce stress on achilles and taping of foot for fascia. Cosme DAWN Abdoulaye - 11/28/2022 8:57 EST Plan (more content not included)...[facility]01-25-2023 NotePT Outpatient Progress Note Entered On: 11/23/2022 17:22 EST Performed On: 11/23/2022 17:22 EST by Meredith Menendez PTA Review/Treatments Provided Subjective : Pt is experiencing increased plantar fascia pain today. Pt expresses frustration with recovery. Therapeutic Exercise : Yes Manual Therapy : Yes Meredith Menendez PTA - 11/27/2022 13:05 EST Total Visit Count : 32 Visit Count Reviewed? : Yes Diagnosis : Reason for Visit: M19.171 POST TRAUMATIC ARTHIRITIS OF RIGHT ANKLE Precautions/Special Notes : 11/2 Calf -3 KE -5 soleus INV 14, EV 5 STN 4, ff/RF 7 1st MTP 34 deg Left calf KE 5 KF 6 Strength grossly 4/5 except Inver -4/5; tenderness HL and TIB Post. 09/10/22 DF KE 2 KF 3 Attending Physician : Name: FRANCIA COLLAZO Shon ADJUNCT LATIN PROFESSOR, Meredith 11/23/2022 17:22 EST Therapeutic Exercise Custom Therapeutic Exercise Exercise 1 Exercise 2 Exercise 3 Exercise 4 Exercise : NuStep joint mobs Talocrural and subtalar Anterior glides 1st MTP Slow reversals and hold relax stretch into extension of 1st MTP Repetition/Time : 5 Grade III 5' x10 Resist or Assist : 5 Not Performed : X Comment : Shon ADJUNCT LATIN PROFESSOR, Meredith - 11/27/2022 13:05 EST Shon ADJUNCT LATIN PROFESSOR, Meredith 11/27/2022 13:05 EST Shon ADJUNCT LATIN PROFESSOR, 11/27/2022 13:05 EST Shon ADJUNCT LATIN PROFESSOR, 11/27/2022 13:05 EST Exercise 5 Exercise 6 Exercise 7 Exercise 8 Exercise : Small knee bends for dynamic achilles stretch slant board stretch Eccentric T-band Posterior Tib Gait training Repetition/Time : 10 30 x 3* 10x2 HEP Resist or Assist : red Not Performed : X X Comment : *Knee extended and then bent shorter stride to normalize patter. Shon ADJUNCT LATIN PROFESSOR, Meredith - 11/27/2022 13:05 EST Shon ADJUNCT LATIN PROFESSOR, Meredith - 11/27/2022 13:05 EST Shon ADJUNCT LATIN PROFESSOR, 11/27/2022 13:05 EST Shon ADJUNCT LATIN PROFESSOR, Meredith - 11/27/2022 13:05 EST Exercise 9 Exercise 10 Exercise 11 Exercise 12 Exercise : Forward step downs Half dome PF/DF, INV/EV, CW/CCW Bilateral FWD stretch LAQ/ HS curls Repetition/Time : Resist or Assist : 2.5#/green Not Performed : X Comment : 2 then 4 tibial FWD translation Shon ADJUNCT LATIN PROFESSOR, Meredith 11/27/2022 13:05 EST Shon ADJUNCT LATIN PROFESSOR, Meredith - 11/27/2022 13:05 EST Shon ADJUNCT LATIN PROFESSOR, Meredith - 11/27/2022 13:05 EST Shon ADJUNCT LATIN PROFESSOR, Meredith 11/27/2022 13:05 EST Exercise 14 Exercise 15 Exercise 16 Exercise 17 Exercise : Upright bike True [place] Strap Calf Stretch KE and KF Half dome PWB alphabet Repetition/Time : 30x3 Resist or Assist : 3 115# Not Performed : X X X Comment : Shon PALACIO, [facility] 11/27/2022 13:05 EST Shon ADJUNCT LATIN PROFESSOR, Meredith 11/27/2022 13:05 EST Shon ADJUNCT LATIN PROFESSOR, [facility] 11/27/2022 13:05 EST Shon PALACIO, Meredith 11/27/2022 13:05 EST Exercise 18 Exercise 20 Exercise 21 Exercise 22 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, 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; athletic tape to foot to relieve PF and to soleus WS with metronome Gait trianing with metronome Repetition/Time : done 10' 15' Resist or Assist : Not Performed : Comment : Shon PALACIO, [facility] 11/27/2022 13:05 EST Shon ADJUNCT LATIN PROFESSOR, [facility] 11/27/2022 13:05 EST Shon [facility], Meredith 11/27/2022 13:05 EST Shon ADJUNCT LATIN PROFESSOR, Meredith 11/27/2022 13:05 EST Manual Therapy Manual Therapy Activity 1 Activity 2 Activity 3 Type/Technique : Myofascial/Soft tissue mobilization IASTM, Myofascial/Soft tissue mobilization Other: Cupping Region : Other: achilles, gastroc and soleus Other: plantar fascia Other: R calf and ankle Equipment/Medium : Deep prep Descriptor : 15 Shon PALACIO, [facility] 11/27/2022 13:05 [facility]/27/[facility] 13:05 EST Shon PALACIO, Meredith - 11/27/2022 13:05 EST Education *Barriers To Learning : None evident *Teaching Method : Demonstration, Explanation Patient Education - PT Outpatient : [facility] 11/27/2022 13:05 EST Assessment PT Response to Treatment : Tolerated well PT Clinical Assessment Summary : Pt educated on focusing on gait mechanics and strengthening techniques. Shon PALACIO Meredith 11/27/2022 13:05 EST Plan Frequency : 2 times per week *Duration : 6 Weeks *Treatments : Balance training, Therapeutic exercises, Pain Management, Posture/Body mechanics training, Gait training *Plan for Next Visit : Assess HEP Treatment Plan/Goals Established with Patient/Caregiver : Yes Shon PALACIO Meredith 11/27/2022 13:05 EST Time Spent with Patient - Outpatient PT Time In : 00:00 EST PT Time Out : 00:00 EST PT Therapeutic Exercise Time : 0 minutes ADJUNCT LATIN PROFESSOR Therapeutic Exercise Units : 0 units PT Total Timed Code Treatment Units : 0 units PT Total Timed Code Tx Minutes : 0 minutes 8 Min Rule Unit Check PT OP : 0 units PT Total Treatment Time Rehab : 0 minutes 8 Min Rule Unit Difference PT OP : 0 Meredith Menendez PTA - 11/27/2022 13:05 [facility] 11-16-2022 NotePT Outpatient Progress Note Entered On: 10/19/2022 17:07 EST Performed On: 10/19/2022 17:06 EST by Meredith Menendez PTA Review/Treatments Provided Subjective : Pt is experiencing more pain than usual today. Pt reports she has purchased shoes she feels may improve her gait; will assess Therapeutic Exercise : Yes Manual Therapy : Yes Meredith Menendez PTA - 10/22/2022 18:43 EST Total Visit Count : 25 Visit Count Reviewed? : Yes Diagnosis : Reason for Visit: M19.171 POST TRAUMATIC ARTHRITIS OF RIGHT ANKLE Precautions/Special Notes : 09/05 Calf -3 KE -5 soleus INV 14, EV 5 STN 4, ff/RF 7 1st MTP 34 deg Left calf KE 5 KF 6 Strength grossly 4/5 except Inver -4/5; tenderness HL and TIB Post. 09/10/22 DF KE 2 KF 3 Attending Physician : Name: FRANCIA COLLAZO PTA, Paula - 10/19/2022 17:06 EST Therapeutic Exercise Custom Therapeutic Exercise Exercise 1 Exercise 2 Exercise 3 Exercise 4 Exercise : NuStep joint mobs Talocrural and subtalar Anterior glides 1st MTP Slow reversals and hold relax stretch into extension of 1st MTP Repetition/Time : Grade III 5' x10 Resist or Assist : Not Performed : X Comment : not performed 09/21/22 Meredith Menendez PTA - 10/22/2022 18:43 EST Meredith Menendez PTA - 10/22/2022 18:43 EST Meredith Menendez PTA - 10/22/2022 18:43 EST Meredith Menendez PTA - 10/22/2022 18:43 EST Exercise 5 Exercise 6 Exercise 7 Exercise 8 Exercise : Small knee bends for dynamic achilles stretch slant board stretch Eccentric T-band Posterior Tib Gait training Repetition/Time : 10 30 x 3* 10x2 HEP Resist or Assist : red Not Performed : Comment : *Knee extended and then bent shorter stride to normalize patter. Shon ADJUNCT LATIN PROFESSOR, [facility] 10/22/2022 18:43 EST Sohn ADJUNCT LATIN PROFESSOR, [facility] 10/22/2022 18:43 EST Shon ADJUNCT LATIN PROFESSOR, [facility] 10/22/2022 18:43 EST Shno ADJUNCT LATIN PROFESSOR, [facility] 10/22/2022 18:43 EST Exercise 9 Exercise 10 Exercise 11 Exercise 12 Exercise : Forward step downs Half dome PF/DF, INV/EV, CW/CCW Bilateral FWD stretch LAQ/ HS curls Repetition/Time : Resist or Assist : 2.5#/green Not Performed : Comment : 2 then 4 tibial FWD translation Shon ADJUNCT LATIN PROFESSOR, [facility] 10/22/2022 18:43 EST Shon [facility], [facility] 10/22/2022 18:43 EST Shon ADJUNCT LATIN PROFESSOR, [facility] 10/22/2022 18:43 EST Shon ADJUNCT LATIN PROFESSOR, [facility] 10/22/2022 18:43 EST Exercise 14 Exercise 15 Exercise 16 Exercise 17 Exercise : Upright bike True [place] Strap Calf Stretch KE and KF Half dome PWB alphabet Repetition/Time : 30x3 Resist or Assist : 3 115# Not Performed : Comment : Shon ADJUNCT LATIN PROFESSOR, [facility] 10/22/2022 18:43 EST Shon ADJUNCT LATIN PROFESSOR, [facility] 10/22/2022 18:43 EST Shon ADJUNCT LATIN PROFESSOR, [facility] 10/22/2022 18:43 EST Shon ADJUNCT LATIN PROFESSOR, [facility] 10/22/2022 18:43 EST Exercise 18 Exercise 20 Exercise 22 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 Repetition/Time : 15' Resist or Assist : Not Performed : Comment : Shon ADJUNCT LATIN PROFESSOR, [facility] 10/22/2022 18:43 EST Shon ADJUNCT LATIN PROFESSOR, [facility] 10/22/2022 18:43 EST Shon ADJUNCT LATIN PROFESSOR, [facility] 10/22/2022 18:43 EST Manual Therapy Manual Therapy Activity 1 Type/Technique : Myofascial/Soft tissue mobilization Region : Other: achilles, gastroc and soleus Equipment/Medium : Deep prep Descriptor : 15 Shon HAKEEMMeredith - 10/22/2022 18:43 EST Education *Barriers To Learning : None evident *Teaching Method : Demonstration, Explanation Patient Education - PT Outpatient : N/A Shon HAKEEMMeredith - 10/22/2022 18:43 EST Assessment PT Response to Treatment : Tolerated well PT Clinical Assessment Summary : Unseccessful with chosing a shoe for improved gait; bases were alltoo thick, causing supination. Pt advised to purchase minimal barefoot shoes. ShonMeredith zaragoza PTA - 10/22/2022 18:43 EST Plan Frequency : 2 times per week *Duration : 6 Weeks *Treatments : Balance training, Therapeutic exercises, Pain Management, Posture/Body mechanics training, Gait training *Plan for Next Visit : assess shoes after purchase. Treatment Plan/Goals Established with Patient/Caregiver : Yes Meredith Menendez PTA - 10/22/2022 18:43 EST Time Spent with Patient - Outpatient PT Time In : 00:00 EST PT Time Out : 00:00 EST PT Therapeutic Exercise Time : 0 minutes ADJUNCT LATIN PROFESSOR Therapeutic Exercise Units : 0 units PT Total Timed Code Treatment Units : 0 units PT Total Timed Code Tx Minutes : 0 minutes 8 Min Rule Unit Check PT OP : 0 units PT Total Treatment Time Rehab : 0 minutes 8 Min Rule Unit Difference PT OP : 0 Shon PALACIO Meredith - [facility]22[facility]22 [facility] Outpatient Progress Note Entered On: 10/22/2022 11:45 EST Performed On: 10/22/2022 11:06 EST by Meredith Menendez PTA Review/Treatments Provided Total Visit Count : 26 Visit Count Reviewed? : Yes Diagnosis : Reason for Visit: M19.171 POST TRAUMATIC ARTHRITIS OF RIGHT ANKLE Precautions/Special Notes : 09/05 Calf -3 KE -5 soleus INV 14, EV 5 STN 4, ff/RF 7 1st MTP 34 deg Left calf KE 5 KF 6 Strength grossly 4/5 except Inver -4/5; tenderness HL and TIB Post. 09/10/22 DF KE 2 KF 3 Attending Physician : Name: FRANCIA COLLAZO Subjective : Pt ordered multiple pair of minimalistic-barefoot style of shoes, in wide, with hopes to normalize gait pattern and correct supination. Pt finds deep tissue mobilization most helpful to improve mobility for longer periods of time. Therapeutic Exercise : Yes Manual Therapy : Yes Modalities : Yes Shon ADJUNCT LATIN PROFESSOR, Meredith 10/22/2022 11:06 EST Therapeutic Exercise Custom Therapeutic Exercise Exercise 1 Exercise 2 Exercise 3 Exercise 4 Exercise : NuStep joint mobs Talocrural and subtalar Anterior glides 1st MTP Slow reversals and hold relax stretch into extension of 1st MTP Repetition/Time : Grade III 5' x10 Resist or Assist : Not Performed : X Comment : not performed 09/21/22 Shon ADJUNCT LATIN PROFESSOR, [facility] 10/22/2022 11:06 EST Shon ADJUNCT LATIN PROFESSOR, [facility] 10/22/2022 11:06 EST Shon ADJUNCT LATIN PROFESSOR, [facility] 10/22/2022 11:06 EST Shon ADJUNCT LATIN PROFESSOR, [facility] 10/22/2022 11:06 EST Exercise 5 Exercise 6 Exercise 7 Exercise 8 Exercise : Small knee bends for dynamic achilles stretch slant board stretch Eccentric T-band Posterior Tib Gait training Repetition/Time : 10 30 x 3* 10x2 HEP Resist or Assist : red Not Performed : Comment : *Knee extended and then bent shorter stride to normalize patter. Shon ADJUNCT LATIN PROFESSOR, [facility] 10/22/2022 11:06 EST Shon ADJUNCT LATIN PROFESSOR, [facility] 10/22/2022 11:06 EST Shon ADJUNCT LATIN PROFESSOR, [facility] 10/22/2022 11:06 EST Shon ADJUNCT LATIN PROFESSOR, [facility] 10/22/2022 11:06 EST Exercise 9 Exercise 10 Exercise 11 Exercise 12 Exercise : Forward step downs Half dome PF/DF, INV/EV, CW/CCW Bilateral FWD stretch LAQ/ HS curls Repetition/Time : Resist or Assist : 2.5#/green Not Performed : Comment : 2 then 4 tibial FWD translation Shon ADJUNCT LATIN PROFESSOR, [facility] 10/22/2022 11:06 EST Shon ADJUNCT LATIN PROFESSOR, [facility] 10/22/2022 11:06 EST Shon ADJUNCT LATIN PROFESSOR, [facility] 10/22/2022 11:06 EST Shon ADJUNCT LATIN PROFESSOR, [facility] 10/22/2022 11:06 EST Exercise 14 Exercise 15 Exercise 16 Exercise 17 Exercise : Upright bike True [place] Strap Calf Stretch KE and KF Half dome PWB alphabet Repetition/Time : 30x3 Resist or Assist : 3 115# Not Performed : Comment : Shon PALACIO [facility] 10/22/2022 11:06 [facility] 11:06 [facility] 10/22/[facility]22 11:06 EST [facility] 10/22/2022 11:06 EST Exercise 18 Exercise 20 Exercise 22 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, 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; athletic tape to foot to relieve PF and to soleus Gait trianing with B walking sticks Repetition/Time : done Resist or Assist : Not Performed : Comment : Shon PALACIO [facility] 10/22/2022 11:06 EST [facility]22/2022 11:06 EST [facility] 10/22/2022 11:06 EST Manual Therapy Manual Therapy Activity 1 Type/Technique : Myofascial/Soft tissue mobilization Region : Other: achilles, gastroc and soleus Equipment/Medium : Deep prep Descriptor : 15 [facility] 10/22/2022 11:06 EST Modalities Modalities Activity 1 Activity 2 Activity 3 Modality : Iontophoresis Ultrasound Hot packs Body Region : Post Tib under MMall Post Tib L soleus and ankle Settings : 14 hr patch 1.5 w/cm, 50% Minutes : 10 minutes [facility] 10/22/2022 11:06 EST [facility] 10/22/2022 11:06 EST [facility] 10/22/2022 11:06 EST Education *Barriers To Learning : None evident *Teaching Method : Demonstration, Explanation Patient Education - PT Outpatient : N/A Shon PALACIO [facility] 10/22/2022 11:06 EST Assessment PT Response to Treatment : Tolerated well PT Clinical Assessment Summary : Pt responded well to today's treatment, with improved mobility anddecreased pain. Able to ambulate without cane upon exit. Shon PALACIO [facility] 10/22/2022 11:06 EST Plan Frequency : 2 times per week *Duration : 6 Weeks *Treatments : Balance training, Therapeutic exercises, Pain Management, Posture/Body mechanics training, Gait training *Plan for Next Visit : Assess new shoes Treatment Plan/Goals Established with Patient/Caregiver : Yes Meredith Menendez PTA - 10/22/2022 11:06 EST Time Spent with Patient - Outpatient PT Time In : 00:00 EST PT Time Out : 00:00 EST PT Therapeutic Exercise Time : 0 minutes ADJUNCT LATIN PROFESSOR Therapeutic Exercise Units : 0 units PT Total Timed Code Treatment Units : 0 units PT Total Timed Code Tx Minutes : 0 minutes 8 Min Rule Unit Check PT OP : 0 units PT Total Treatment Time Rehab : 0 minutes 8 Min Rule Unit Diff (more content not included)...[facility]01-13-2023 NotePT Outpatient Progress Note Entered On: 2022 10:59 EST Performed On: 2022 10:16 EST by Meredith Menendez PTA Review/Treatments Provided Total Visit Count : 29 Visit Count Reviewed? : Yes Diagnosis : Reason for Visit: M19.171 POST TRAUMATIC ARTHIRITIS OF RIGHT ANKLE Precautions/Special Notes : 09/05 Calf -3 KE -5 soleus INV 14, EV 5 STN 4, ff/RF 7 1st MTP 34 deg Left calf KE 5 KF 6 Strength grossly 4/5 except Inver -4/5; tenderness HL and TIB Post. 09/10/22 DF KE 2 KF 3 Attending Physician : Name: FRANCIA COLLAZO Subjective : Pt reports a significant improvement in plantar pain after last session. Pt has been training without AD. Has been using the can only in the evening. Therapeutic Exercise : Yes Meredith Menendez PTA - 2022 10:16 EST Therapeutic Exercise Custom Therapeutic Exercise Exercise 1 Exercise 2 Exercise 3 Exercise 4 Exercise : NuStep joint mobs Talocrural and subtalar Anterior glides 1st MTP Slow reversals and hold relax stretch into extension of 1st MTP Repetition/Time : Grade III 5' x10 Resist or Assist : Not Performed : X Comment : Meredith Menendez PTA - 2022 10:16 EST Meredith Menendez PTA - 2022 10:16 EST Meredith Menendez PTA - 2022 10:16 EST Meredith Menendez PTA - 2022 10:16 EST Exercise 5 Exercise 6 Exercise 7 Exercise 8 Exercise : Small knee bends for dynamic achilles stretch slant board stretch Eccentric T-band Posterior Tib Gait training Repetition/Time : 10 30 x 3* 10x2 HEP Resist or Assist : red Not Performed : X X Comment : *Knee extended and then bent shorter stride to normalize patter. Shon ADJUNCT LATIN PROFESSOR, Meredith 2022 10:16 EST Shon ADJUNCT LATIN PROFESSOR, Meredith 2022 10:16 EST Shon ADJUNCT LATIN PROFESSOR, Meredith - 2022 10:16 EST Shon ADJUNCT LATIN PROFESSOR, 2022 10:16 EST Exercise 9 Exercise 10 Exercise 11 Exercise 12 Exercise : Forward step downs Half dome PF/DF, INV/EV, CW/CCW Bilateral FWD stretch LAQ/ HS curls Repetition/Time : Resist or Assist : 2.5#/green Not Performed : X Comment : 2 then 4 tibial FWD translation Shon ADJUNCT LATIN PROFESSOR, Meredith - 2022 10:16 EST Shon ADJUNCT LATIN PROFESSOR, Meredith 2022 10:16 EST Shon ADJUNCT LATIN PROFESSOR, Meredith 2022 10:16 EST Shon ADJUNCT LATIN PROFESSOR, Meredith - 2022 10:16 EST Exercise 14 Exercise 15 Exercise 16 Exercise 17 Exercise : Upright bike True [place] Strap Calf Stretch KE and KF Half dome PWB alphabet Repetition/Time : 30x3 Resist or Assist : 3 115# Not Performed : X X Comment : Shon PALACIO, Meredith 2022 10:16 EST Shon ADJUNCT LATIN PROFESSOR, Meredith 2022 10:16 EST Shon ADJUNCT LATIN PROFESSOR, Meredith 2022 10:16 EST Shon ADJUNCT LATIN PROFESSOR, Meredith 2022 10:16 EST Exercise 18 Exercise 20 Exercise 21 Exercise 22 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, 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; athletic tape to foot to relieve PF and to soleus WS with metronome Gait trianing with metronome Repetition/Time : done 10' 15' Resist or Assist : Not Performed : Comment : Shon ADJUNCT LATIN PROFESSOR, Meredith 2022 10:16 EST Shon ADJUNCT LATIN PROFESSOR, Meredith 2022 10:16 EST Shon ADJUNCT LATIN PROFESSOR, Meredith 2022 10:16 EST ShonMeredith zaragoza PTA 2022 10:16 EST Education *Barriers To Learning : None evident *Teaching Method : Demonstration, Explanation Patient Education - PT Outpatient : Home exercise program - progression/modification Meredith Menendez PTA 2022 10:16 EST Assessment PT Response to Treatment : Tolerated well PT Clinical Assessment Summary : Educated pt on improving gait symmetry with use of metronome nelson. Standing WS with emphasis on weight acceptance on R with hip shift to improved alignment and retrainproprioception. Meredith Menendez PTA 2022 10:16 EST Plan Frequency : 2 times per week *Duration : 6 Weeks *Treatments : Balance training, Therapeutic exercises, Pain Management, Posture/Body mechanics training, Gait training *Plan for Next Visit : continue gait work Treatment Plan/Goals Established with Patient/Caregiver : Yes Meredith Menendez PTA 2022 10:16 EST Time Spent with Patient - Outpatient PT Time In : 00:00 EST PT Time Out : 00:00 EST PT Therapeutic Exercise Time : 0 minutes ADJUNCT LATIN PROFESSOR Therapeutic Exercise Units : 0 units PT Total Timed Code Treatment Units : 0 units PT Total Timed Code Tx Minutes : 0 minutes 8 Min Rule Unit Check PT OP : 0 units PT Total Treatment Time Rehab : 0 minutes 8 Min Rule Unit Difference PT OP : 0 Meredith Menendez PTA 2022 10:16 [facility] 11-16-2022 NotePT Outpatient Progress Note Entered On: 11/16/2022 10:17 EST Performed On: 11/16/2022 9:01 EST by Abdoulaye Aguiar PT Review/Treatments Provided Total Visit Count : 31 Visit Count Reviewed? : Yes Pain Present : Yes actual or suspected pain Diagnosis : Reason for Visit: M19.171 POST TRAUMATIC ARTHIRITIS OF RIGHT ANKLE Precautions/Special Notes : 09/05 Calf -3 KE -5 soleus INV 14, EV 5 STN 4, ff/RF 7 1st MTP 34 deg Left calf KE 5 KF 6 Strength grossly 4/5 except Inver -4/5; tenderness HL and TIB Post. 09/10/22 DF KE 2 KF 3 Attending Physician : Name: FRANCIA COLLAZO Subjective : Had flair up of medial malleolus, had injection of PF; CT planned: suspects cyst. Therapeutic Exercise : Yes Manual Therapy : Yes Modalities : Yes Abdoulaye Aguiar PT 11/16/2022 9:01 EST Pain Assessment Pain Location : Heel Laterality : Right Self Report Pain : Numeric rating scale Numeric Pain Scale : 5 = Moderate pain Numeric Pain Score : 5 Cosme PT, Abdoulaye - 11/16/2022 9:01 EST Therapeutic Exercise Custom Therapeutic Exercise Exercise 1 Exercise 2 Exercise 3 Exercise 4 Exercise : NuStep joint mobs Talocrural and subtalar Anterior glides 1st MTP Slow reversals and hold relax stretch into extension of 1st MTP Repetition/Time : 5 Grade III 5' x10 Resist or Assist : 5 Not Performed : X Comment : Daphnerefugio PT, Abdoulaye - 11/16/2022 9:01 EST Daphnerick PT, Abdoulaye - 11/16/2022 9:01 EST Daphnerick PT, Abdoulaye - 11/16/2022 9:01 EST Daphnerick PT, Abdoulaye - 11/16/2022 9:01 EST Exercise 5 Exercise 6 Exercise 7 Exercise 8 Exercise : Small knee bends for dynamic achilles stretch slant board stretch Eccentric T-band Posterior Tib Gait training Repetition/Time : 10 30 x 3* 10x2 HEP Resist or Assist : red Not Performed : X X Comment : *Knee extended and then bent shorter stride to normalize patter. Daphnerefugio PT, Abdoulaye - 11/16/2022 9:01 EST Daphnerick PT, Abdoulaye - 11/16/2022 9:01 EST Daphnerick PT, Abdoulaye - 11/16/2022 9:01 EST Daphnerick PT, Abdoulaye - 11/16/2022 9:01 EST Exercise 9 Exercise 10 Exercise 11 Exercise 12 Exercise : Forward step downs Half dome PF/DF, INV/EV, CW/CCW Bilateral FWD stretch LAQ/ HS curls Repetition/Time : Resist or Assist : 2.5#/green Not Performed : X Comment : 2 then 4 tibial FWD translation Cosme PT, Abdoulaye - 11/16/2022 9:01 EST Trinityttrick PT, Abdoulaye - 11/16/2022 9:01 EST Trinityttrick PT, Abdoulaye - 11/16/2022 9:01 EST Trinityttrick PT, Abdoulaye - 11/16/2022 9:01 EST Exercise 14 Exercise 15 Exercise 16 Exercise 17 Exercise : Upright bike True [place] Strap Calf Stretch KE and KF Half dome PWB alphabet Repetition/Time : 30x3 Resist or Assist : 3 115# Not Performed : X X X Comment : Cosme DAWN Abdoulaye - 11/16/2022 9:01 EST Cosme PT, Abdoulaye - 11/16/2022 9:01 EST Cosme DAWN, Abdoulaye - 11/16/2022 9:01 EST Cosme DAWN Abdoulaye - 11/16/2022 9:01 EST Exercise 18 Exercise 20 Exercise 21 Exercise 22 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, 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; athletic tape to foot to relieve PF and to soleus WS with metronome Gait trianing with metronome Repetition/Time : done 10' 15' Resist or Assist : Not Performed : Comment : Cosme DAWN Abdoulaye - 11/16/2022 9:01 EST Cosme DAWN Abdoulaye - 11/16/2022 9:01 EST Cosme DAWN Abdoulaye - 11/16/2022 9:01 EST Cosme DAWN, Abdoulaye - 11/16/2022 9:01 EST Manual Therapy Manual Therapy Activity 1 Activity 2 Activity 3 Type/Technique : Myofascial/Soft tissue mobilization IASTM, Myofascial/Soft tissue mobilization Other: Cupping Region : Other: achilles, gastroc and soleus Other: plantar fascia Other: R calf and ankle Equipment/Medium : Deep prep Descriptor : 15 Cosme DAWN Abdoulaye - 11/16/2022 9:01 EST Cosme DAWN Abdoulaye - 11/16/2022 9:01 EST Cosme DAWN, Abdoulaye - 11/16/2022 9:01 EST Modalities Modalities Activity 1 Modality : Iontophoresis Body Region : superior-ant med mall Settings : 14 hour patch Minutes : 10 minutes Cosme DAWN Abdoulaye 11/16/2022 9:01 EST Education *Barriers To Learning : None evident *Teaching Method : Explanation Patient Education - PT Outpatient : Home exercise program - progression/modification Cosme DAWN Abdoulaye - 11/16/2022 9:01 EST Assessment PT Clinical Assessment Summary : Sebastián session well; as patient still recovering from painful med ankle worked primarily on STM of calf and achilles including use of smart tools, some ankle mobs, ex and ionto to involved area. Abdoulaye Aguiar PT - 11/16/2022 9:01 EST Plan Frequency : 2 times per week *Duration : 6 Weeks *Treatments : Balance training, Therapeutic exercises, Pain Management, Posture/Body mechanics training, Gait training *Plan for Next Visit : Cont per poc, focusing tay on mobilizing and lengthening calf tay soleus Treatment Plan/Goals Established with Patient/Caregiver : Yes Abdoulaye Aguiar PT - 11/16/2022 9:01 EST Time Spent with Patient - Outpatient PT Time In : 09:02 EST PT Time Out : 09:47 EST PT Ther (more content not included)...[facility]01-13-2023 NotePT Outpatient Progress Note Entered On: 11/09/2022 10:31 EST Performed On: 11/09/2022 9:50 EST by Meredith Menendez PTA Review/Treatments Provided Manual Therapy : Yes Modalities : Yes Meredith Menendez PTA - 11/09/2022 17:23 EST Total Visit Count : 30 Visit Count Reviewed? : Yes Diagnosis : Reason for Visit: M19.171 POST TRAUMATIC ARTHIRITIS OF RIGHT ANKLE Precautions/Special Notes : 09/05 Calf -3 KE -5 soleus INV 14, EV 5 STN 4, ff/RF 7 1st MTP 34 deg Left calf KE 5 KF 6 Strength grossly 4/5 except Inver -4/5; tenderness HL and TIB Post. 09/10/22 DF KE 2 KF 3 Attending Physician : Name: FRANCIA COLLAZO PTA, Paula - 11/09/2022 9:50 EST Subjective : Pt was very sore and fatigued after last visit but feels it was a significant progression towards normalizing gait. Has been working on symmetrical stepping but pain is limiting. has returned to use of cane, but is maintaining work on WS and improved pattern. Meredith Menendez PTA - 11/09/2022 17:23 EST Therapeutic Exercise : Yes Meredith Menendez PTA - 11/09/2022 9:50 EST Therapeutic Exercise Custom Therapeutic Exercise Exercise 1 Exercise 2 Exercise 3 Exercise 4 Exercise : NuStep joint mobs Talocrural and subtalar Anterior glides 1st MTP Slow reversals and hold relax stretch into extension of 1st MTP Repetition/Time : 5 Grade III 5' x10 Resist or Assist : 5 Not Performed : X X Comment : Shon ADJUNCT LATIN PROFESSOR, 11/09/2022 9:50 EST Shon ADJUNCT LATIN PROFESSOR, 11/09/2022 9:50 EST Shon ADJUNCT LATIN PROFESSOR, 11/09/2022 9:50 EST Shon ADJUNCT LATIN PROFESSOR, 11/09/2022 9:50 EST Exercise 5 Exercise 6 Exercise 7 Exercise 8 Exercise : Small knee bends for dynamic achilles stretch slant board stretch Eccentric T-band Posterior Tib Gait training Repetition/Time : 10 30 x 3* 10x2 HEP Resist or Assist : red Not Performed : X X Comment : *Knee extended and then bent shorter stride to normalize patter. Shon ADJUNCT LATIN PROFESSOR, 11/09/2022 9:50 EST Shon ADJUNCT LATIN PROFESSOR, 11/09/2022 9:50 EST Shon ADJUNCT LATIN PROFESSOR, 11/09/2022 9:50 EST Shon ADJUNCT LATIN PROFESSOR, 11/09/2022 9:50 EST Exercise 9 Exercise 10 Exercise 11 Exercise 12 Exercise : Forward step downs Half dome PF/DF, INV/EV, CW/CCW Bilateral FWD stretch LAQ/ HS curls Repetition/Time : Resist or Assist : 2.5#/green Not Performed : X Comment : 2 then 4 tibial FWD translation Shon ADJUNCT LATIN PROFESSOR, 11/09/2022 9:50 EST Shon ADJUNCT LATIN PROFESSOR, 11/09/2022 9:50 EST Shon ADJUNCT LATIN PROFESSOR, 11/09/2022 9:50 EST Shon ADJUNCT LATIN PROFESSOR, 11/09/2022 9:50 EST Exercise 14 Exercise 15 Exercise 16 Exercise 17 Exercise : Upright bike True [place] Strap Calf Stretch KE and KF Half dome PWB alphabet Repetition/Time : 30x3 Resist or Assist : 3 115# Not Performed : X X Comment : Shon ADJUNCT LATIN PROFESSOR, 11/09/2022 9:50 EST Shon ADJUNCT LATIN PROFESSOR, 11/09/2022 9:50 EST Shon ADJUNCT LATIN PROFESSOR, 11/09/2022 9:50 EST Shon ADJUNCT LATIN PROFESSOR, 11/09/2022 9:50 EST Exercise 18 Exercise 20 Exercise 21 Exercise 22 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, 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; athletic tape to foot to relieve PF and to soleus WS with metronome Gait trianing with metronome Repetition/Time : done 10' 15' Resist or Assist : Not Performed : Comment : Shon PALACIO, Meredith - 11/09/2022 9:50 EST Shon ADJUNCT LATIN PROFESSOR, Meredith 11/09/2022 9:50 EST Shon ADJUNCT LATIN PROFESSOR, Meredith 11/09/2022 9:50 EST Shon ADJUNCT LATIN PROFESSOR, Meredith 11/09/2022 9:50 EST Manual Therapy Manual Therapy Activity 1 Activity 2 Activity 3 Type/Technique : Myofascial/Soft tissue mobilization IASTM, Myofascial/Soft tissue mobilization Other: Cupping Region : Other: achilles, gastroc and soleus Other: plantar fascia Other: R calf and ankle Equipment/Medium : Deep prep Descriptor : 15 5' static Shon ADJUNCT LATIN PROFESSOR, Meredith - 11/09/2022 17:23 EST Shon ADJUNCT LATIN PROFESSOR, Meredith 11/09/2022 17:23 EST Shon ADJUNCT LATIN PROFESSOR, Meredith 11/09/2022 17:23 EST Modalities Modalities Activity 1 Modality : Iontophoresis Body Region : R Plantar fascia Shon PALACIO, Meredith 11/09/2022 17:23 EST Education *Barriers To Learning : None evident *Teaching Method : Demonstration, Explanation Patient Education - PT Outpatient : N/A Shon PALACIO Meredith 11/09/2022 17:23 EST Assessment PT Response to Treatment : Tolerated well PT Clinical Assessment Summary : Pt tolerated addition of cupping technique to faciliate increased blood flow and MFR. Applied Iontophoresis to plantar portion of R foot for pain relief. continued focus on symmetry with gait pattern. Shon PALACIO Meredith 11/09/2022 17:23 EST Plan Frequency : 2 times per week *Duration : 6 Weeks *Treatments : Balance training, Therapeutic exercises, Pain Management, Posture/Body mechanics training, Gait training *Plan for Next Visit : Assess response from cupping. Treatment Plan/Goals Established with Patient/Caregiver : Yes Shon PALACIO Meredith 11/09/2022 17:23 EST Time Spent with Patient - Outpatient PT Time In : 00:00 EST PT Time (more content not included)...[facility]01-11-2023 NotePROCEDURE: XR FOOT RT MIN 3 VIEWS, XR ANKLE RT MIN 3 VIEWS HISTORY: Pain in right foot ; medial foot and ankle pain, no known injury COMPARISON: XR foot right 11/30/2021, XR ankle right 07/25/2022 FINDINGS: BONES:Prosthetic replacement of the talus. No fracture, dislocation, or bone lesion. Mild degenerative change of first metatarsophalangeal joint. Prominent calcaneal plantar spur. Degenerative osteophyte along the anterior articular margin of tibial plafond. SOFT TISSUES:No visible soft tissue swelling. EFFUSION:None visible. OTHER: Negative. IMPRESSION: 1. No acute bone abnormality. 2. Stable surgical changes without evidence of hardware failure or change in alignment. 3. Mild degenerative changes. Electronically authenticated by: JERZY MURRIETA Date: 2022-11-14 13:42[facility]01-11-2023 NotePROCEDURE: XR FOOT RT MIN 3 VIEWS, XR ANKLE RT MIN 3 VIEWS HISTORY: Pain in right foot ; medial foot and ankle pain, no known injury COMPARISON: XR foot right 11/30/2021, XR ankle right 07/25/2022 FINDINGS: BONES:Prosthetic replacement of the talus. No fracture, dislocation, or bone lesion. Mild degenerative change of first metatarsophalangeal joint. Prominent calcaneal plantar spur. Degenerative osteophyte along the anterior articular margin of tibial plafond. SOFT TISSUES:No visible soft tissue swelling. EFFUSION:None visible. OTHER: Negative. IMPRESSION: 1. No acute bone abnormality. 2. Stable surgical changes without evidence of hardware failure or change in alignment. 3. Mild degenerative changes. Electronically authenticated by: JERZY MURRIETA Date: 2022-11-14 13:42[facility]12-30-2022 NotePT Outpatient Progress Note Entered On: 11/02/2022 10:26 EST Performed On: 11/02/2022 10:18 EST by Abdoulaye Aguiar PT Review/Treatments Provided Total Visit Count : 28 Visit Count Reviewed? : Yes Pain Present : Yes actual or suspected pain Diagnosis : Reason for Visit: M19.171 POST TRAUMATIC ARTHRITIS OF RIGHT ANKLE Precautions/Special Notes : 09/05 Calf -3 KE -5 soleus INV 14, EV 5 STN 4, ff/RF 7 1st MTP 34 deg Left calf KE 5 KF 6 Strength grossly 4/5 except Inver -4/5; tenderness HL and TIB Post. 09/10/22 DF KE 2 KF 3 Attending Physician : Name: FRANCIA COLLAZO Subjective : Patient notes walking is better with toe shoes but fascia is acting up more not allowing her to roll medial onto heel. A bit of anterior jiméenz pain. Therapeutic Exercise : Yes Manual Therapy : Yes Modalities : Yes Cosme PT, Abdoulaye - 11/02/2022 10:18 EST Pain Assessment Pain Location : Heel Laterality : Right Self Report Pain : Numeric rating scale Numeric Pain Scale : 4 Numeric Pain Score : 4 Dittrick PT, Abdoulaye - 11/02/2022 10:18 EST Therapeutic Exercise Custom Therapeutic Exercise Exercise 1 Exercise 2 Exercise 3 Exercise 4 Exercise : NuStep joint mobs Talocrural and subtalar Anterior glides 1st MTP Slow reversals and hold relax stretch into extension of 1st MTP Repetition/Time : Grade III 5' x10 Resist or Assist : Not Performed : X Comment : Cosme PT, Abdoulaye - 11/02/2022 10:18 EST Dittrick PT, Abdoulaye - 11/02/2022 10:18 EST Dittrick PT, Abdoulaye - 11/02/2022 10:18 EST Dittrick PT, Abdoulaye - 11/02/2022 14:13 EST Exercise 5 Exercise 6 Exercise 7 Exercise 8 Exercise : Small knee bends for dynamic achilles stretch slant board stretch Eccentric T-band Posterior Tib Gait training Repetition/Time : 10 30 x 3* 10x2 HEP Resist or Assist : red Not Performed : X X Comment : *Knee extended and then bent shorter stride to normalize patter. Trinityttrick PT, Abdoulaye - 11/02/2022 14:13 EST Dittrick PT, Abdoulaye - 11/02/2022 10:18 EST Dittrick PT, Abdoulaye - 11/02/2022 14:13 EST Dittrick PT, Abdoulaye - 11/02/2022 10:18 EST Exercise 9 Exercise 10 Exercise 11 Exercise 12 Exercise : Forward step downs Half dome PF/DF, INV/EV, CW/CCW Bilateral FWD stretch LAQ/ HS curls Repetition/Time : Resist or Assist : 2.5#/green Not Performed : X Comment : 2 then 4 tibial FWD translation Dittrick PT, Abdoulaye - 11/02/2022 10:18 EST Dittrick PT, Abdoulaye - 11/02/2022 10:18 EST Dittrick PT, Abdoulaye - 11/02/2022 10:18 EST Dittrick PT, Abdoulaye - 11/02/2022 14:13 EST Exercise 14 Exercise 15 Exercise 16 Exercise 17 Exercise : Upright bike True [place] Strap Calf Stretch KE and KF Half dome PWB alphabet Repetition/Time : 30x3 Resist or Assist : 3 115# Not Performed : X X Comment : Trinityttrick PT, Abdoulaye - 11/02/2022 14:13 EST Dittrick PT, Abdoulaye - 11/02/2022 10:18 EST Dittrick PT, Abdoulaye - 11/02/2022 14:13 EST Dittrick PT, Abdoulaye - 11/02/2022 10:18 EST Exercise 18 Exercise 20 Exercise 22 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, 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; athletic tape to foot to relieve PF and to soleus Gait trianing with B walking sticks Repetition/Time : done Resist or Assist : Not Performed : Comment : Daphnerick PT, Abdoulaye - 11/02/2022 10:18 EST Dittrick PT, Abdoulaye - 11/02/2022 10:18 EST Dittrick PT, Abdoulaye - 11/02/2022 10:18 EST Manual Therapy Manual Therapy Activity 1 Activity 2 Type/Technique : Myofascial/Soft tissue mobilization IASTM, Myofascial/Soft tissue mobilization Region : Other: achilles, gastroc and soleus Other: plantar fascia Equipment/Medium : Deep prep Descriptor : 15 15 Dittrick PT, Abdoulaye - 11/02/2022 10:18 EST Dittrick PT, Abdoulaye - 11/02/2022 10:18 EST Modalities Modalities Activity 1 Activity 2 Activity 3 Modality : Iontophoresis Ultrasound Hot packs Body Region : PF and post tib (prox) achilles, PT, PF L soleus and ankle Settings : 14 hr patch 1.5 w/cm, 50% Minutes : 12 minutes Dittrick PT, Abdoulaye - 11/02/2022 10:18 EST Dittrick PT, Abdoulaye - 11/02/2022 10:18 EST Dittrick PT, Abdoulaye - 11/02/2022 10:18 EST Education *Barriers To Learning : None evident *Teaching Method : Demonstration, Explanation Patient Education - PT Outpatient : Home exercise program - progression/modification Abdoulaye Aguiar PT - 11/02/2022 14:13 EST Assessment PT Clinical Assessment Summary : Sebastián session well; doing better with toe shoes but plantar fascia aggravated. Cont work on releasing soleus and TC and Subtalar joints, treating inflammation of PF andPost tib. Abdoulaye Aguiar PT - 11/02/2022 14:13 EST Plan Frequency : 2 times per week *Duration : 6 Weeks *Treatments : Balance training, Therapeutic exercises, Pain Management, Posture/Body mechanics training, Gait training *Plan for Next Visit : Cont as above. Treatment Plan/Goals Established with Patient/Caregiver : Yes Abdoulaye Aguiar PT - 11/02/2022 14:13 EST Time Spent with Patient - Outpatient PT Time In : 09:00 EST PT T (more content not included)...[facility]12-30-2022 NotePT Outpatient Progress Note Entered On: 10/26/2022 10:18 EST Performed On: 10/26/2022 9:49 EST by Meredith Menendez PTA Review/Treatments Provided Total Visit Count : 27 Visit Count Reviewed? : Yes Diagnosis : Reason for Visit: M19.171 POST TRAUMATIC ARTHRITIS OF RIGHT ANKLE Precautions/Special Notes : 09/05 Calf -3 KE -5 soleus INV 14, EV 5 STN 4, ff/RF 7 1st MTP 34 deg Left calf KE 5 KF 6 Strength grossly 4/5 except Inver -4/5; tenderness HL and TIB Post. 09/10/22 DF KE 2 KF 3 Attending Physician : Name: FRANCIA COLLAZO Subjective : Pt received barefoot shoes and brought them in to assess. Manual Therapy : Yes Gait : Yes Meredith Menendez PTA - 10/26/2022 9:49 EST Manual Therapy Manual Therapy Activity 1 Type/Technique : Myofascial/Soft tissue mobilization Region : Other: achilles, gastroc and soleus Equipment/Medium : Deep prep Descriptor : 15 Meredith Menendez PTA - 10/26/2022 9:49 EST Gait Analysis PMR Ambulation Comments : Assessment of gait with various Minimal Barefoot shoes for proper mechanics and stability. Pt demonstrates improved alignment and decreased supination with WBing. Pt educated on discontinued use of insert to improve contact. Meredith Menendez PTA 10/26/2022 9:49 EST Education *Barriers To Learning : None evident *Teaching Method : Demonstration Patient Education - PT Outpatient : N/A Meredith Menendez PTA 10/26/2022 9:49 EST Assessment PT Response to Treatment : Tolerated well PT Clinical Assessment Summary : Pt exhibits overall improvement with gait mechanics with new shoes. Cues for decreased recurvatum upon weight acceptance. Responded well to manual work today. Meredith Menendez PTA 10/26/2022 9:49 EST Plan Frequency : 2 times per week *Duration : 6 Weeks *Treatments : Balance training, Therapeutic exercises, Pain Management, Posture/Body mechanics training, Gait training *Plan for Next Visit : Continue with gait mechanins with LRD Treatment Plan/Goals Established with Patient/Caregiver : Yes Meredith Menendez PTA 10/26/2022 9:49 EST Time Spent with Patient - Outpatient PT Time In : 00:00 EST PT Time Out : 00:00 EST PT Soft Tissue Mobility Time : 0 minutes ADJUNCT LATIN PROFESSOR Soft Tissue Mobility Units : 0 units PT Total Timed Code Treatment Units : 0 units PT Total Timed Code Tx Minutes : 0 minutes 8 Min Rule Unit Check PT OP : 0 units PT Total Treatment Time Rehab : 0 minutes 8 Min Rule Unit Difference PT OP : 0 Meredith Menendez PTA 10/26/2022 9:49 [facility] 09-06-2022 History of Present illness NarrativePatient is a 41 y/o female who presents here today for evaluation of swollen gland. Bump is presentbehind her left ear and is painful to touch. Symptoms began 10 days ago. She had dental work recently so she followed up with her dentist and was told she doesn't have an infection. Patient denies recent upper respiratory infection. She has a dog. Patient reports increased fatigue; her has noticed she has been napping more. She reports she had a reaction to z-michele years ago. She states sheusually has an infection after completing antibiotic.[facility] Work Phone: 1(759) 724-392110-30-2022 History of Present illness NarrativePatient is a 41 y/o female who presents here today for evaluation of swollen gland. Bump is presentbehind her left ear and is painful to touch. Symptoms began 10 days ago. She had dental work recently so she followed up with her dentist and was told she doesn't have an infection. Patient denies recent upper respiratory infection. She has a dog. Patient reports increased fatigue; her has n oticed she has been napping more. She reports she had a reaction to z-michele years ago. She states sheusually has an infection after completing antibiotic.[facility] Work Phone: 1(856) 708-111009-21-2022 NotePROCEDURE: XR ANKLE RT MIN 3 VIEWS HISTORY: Pain of right ankle joint COMPARISON: XR ankle right 04/25/2022 FINDINGS: BONES:Prosthetic replacement of the talus. Stable mild-moderate degenerative changes of the midfoot. Prominent calcaneal plantar spur. SOFT TISSUES:No visible soft tissue swelling. EFFUSION:None visible. OTHER: Negative. IMPRESSION: 1. Stable surgical changes without evidence of hardware failure or change in alignment. Electronically authenticated by: JERZY MURRIETA Date: 2022-07-25 17:41[facility]06-23-2022 NotePROCEDURE: XR ANKLE RT MIN 3 VIEWS HISTORY: Pain of right ankle joint COMPARISON: XR ankle right 11/30/2021 FINDINGS: BONES:Prosthetic replacement of the talus without evidence of hardware fracture or appreciable change in alignment. Degenerative ossified along the anterior articular margin of the tibial plafond. Large calcaneal plantar spur. Mild degenerative changes of the midfoot. SOFT TISSUES:No visible soft tissue swelling. EFFUSION:None visible. OTHER: Negative. IMPRESSION: 1. Stable surgical changes without evidence of hardware failure or change in alignment. Electronically authenticated by: JERZY MURRIETA Date: 2022-04-26 09:59[facility]02-14-2022 History of Present illness Narrative* Patient is a 41 y/o female who presents here today for evaluation of possible kidney stone. She hasa history of chronic back pain. She complains of back pain on the right side after she urinates; symptoms have been present for 2-3 days and begin 5 minutes after she urinates. Pain lasts for 2 hours. Patient denies dysuria, nausea, hematuria, mucus or smith material. * Patient is using a cane today. She states her foot has not improved since last office visit. She states she will have another scan soon. She reports she takes medication once a week for right ankle pain. -[facility] Work Phone: 1([phone]) 267-602501-01-2022 History of Present illness Narrative* 41y female who presents for evaluation of nephrolithiasis, . Patient developed severe intermittent right flank pain for 10 days beginning at the end of Nov. She states at this time the right flank is achy. Initially she developed severe flank pain when she did not urinate for 5-6 hours,Which resolved when she urinated. She saw PCP and underwent CT scan which identified 5 mm nonobstructing right stone. No other stones were identified in either kidney. Denies dysuria and gross hematuria. * Patient drinks 2 cups of coffee daily and significant amounts of water. Occasional alcohol, up to 1/week. * Patient with strong family history of of nephrolithiasis. Patient denies previous personal history of stones. * Patient was given tamsulosin for 2 days with significant somnolence and fatigue, Therefore she discontinued. She has a history of a significant injury to her right leg and takes meloxicam as well as Tylenol intermittently. She states this really does not seem to have any effect on her flank pain. [id number] Work Phone: 1([phone]) 771-568001-01-2022 History of Present illness Narrative* 41y female who presents for evaluation of nephrolithiasis, . Patient developed severe intermittent right flank pain for 10 days beginning at the end of Nov. She states at this time the right flank is achy. Initially she developed severe flank pain when she did not urinate for 5-6 hours,Which resolved when she urinated. She saw PCP and underwent CT scan which identified 5 mm nonobstructing right stone. No other stones were identified in either kidney. Denies dysuria and gross hematuria. * Patient drinks 2 cups of coffee daily and significant amounts of water. Occasional alcohol, up to 1/week. * Patient with strong family history of of nephrolithiasis. Patient denies previous personal history of stones. * Patient was given tamsulosin for 2 days with significant somnolence and fatigue, Therefore she discontinued. She has a history of a significant injury to her right leg and takes meloxicam as well as Tylenol intermittently. She states this really does not seem to have any effect on her flank pain. -[facility] Work Phone: 1([phone]) 212-531706-01-2020 History general Narrative - Reported* Type Description Date Surgical History dislocated talus-[facility] 04/05 020 Surgical History total talus implant-Dr Vance 12/2020 Surgical History plantar fasciotomy 04/2021 Surgical History ankle arthroplasty, tenotomy, p lantar fascia 01/2023 Hospitalization History see above [employer] Other [facility] Other Evaluation note* Diagnosis Avascular necrosis of right talus (CMS/HCC)- Primary Benign essential hypertension Essential hypertension, benign Morbid obesity with body mass index (BMI) of 50.0 to 59.9 in adult ([facility]/HCC) documented in this encounter [facility] Work Phone: Evaluation note* Diagnosis Bronchitis- Primary Bronchitis, not specified as acute or chronic documented in this encounter [facility] Work Phone: History of Present illness NarrativeVery pleasant 40-year-old with recent surgery on her foot blood pressure was found to be high she has not any chest pain chest tightness or shortness of breath is very concerned about taking medication and would like to start losing weight but she has terrible plantar fasciitis this is causing a significant amount of depression which is been bothering her for several weeks because she had the surgery I will repair the ankle but now has severe plantar fasciitis that is making it very difficult for her to walk and it is subsequently giving her significant depression and she cannot exercise and manage her blood pressure with conservative means patient is here to discuss these issues she is nota danger to herself or others but has been tearful and sad for several weeks- [facility] Work Phone: History of Present illness Narrative* Patient is a 40 y/o female with a history of HTN, anxiety and depression who presents here today for evaluation of a rash under her breasts. Patient is using a cane in office today * Patient has 2 days left of amoxicillin for a dental procedure. Patient states she gets a yeast infection every time she is on antibiotics. She has been using ketoconazole cream; she reports rash has started resolved but has return. Patient complains of itchiness. She reports her armpits are also itc serjio. Patient has also been taking probiotics. * Patient reports she had a procedure for plantar fasciitis on right foot and another procedure to lengthened her calf muscle. * Patient will be going on vacation tomorrow to [place]. [facility] Work Phone: History of Present illness Narrative* Patient is a 40 y/o female with a history of HTN, anxiety and depression who presents here today for evaluation of a rash under her breasts. Patient is using a cane in office today * Patient has 2 days left of amoxicillin for a dental procedure. Patient states she gets a yeast infection every time she is on antibiotics. She has been using ketoconazole cream; she reports rash has started resolved but has return. Patient complains of itchiness. She reports her armpits are also itc serjio. Patient has also been taking probiotics. * Patient reports she had a procedure for plantar fasciitis on right foot and another procedure to lengthened her calf muscle. * Patient will be going on vacation tomorrow to [place]. [facility] Work Phone: History of Present illness Narrative* Patient is a 41 y/o female with a history of HTN who presents here today for evaluation of low blood pressure and to discuss pain. She is using a cane and wearing a brace. * Patient has not had surgery since last office visit. She needs to have a slight revision and have scar tissue removed. She also injured a ligament. She has a follow up appointment with her surgeon todiscuss her options. She is not ready for surgery. She has resumed physical therapy. Patient reports constant pain. Her doctor recommended antidepressant for pain. She is concerned about starting medication since she had a reaction to Wellbutrin. She reports she took Cymbalta years ago for back pain and felt jittery but states medication helped. She has been taking Advil at night. She would like a disability placard. * Patient reports she has occasional dizzy spells. She was concerned symptoms were due to low blood pressure * Patient is unsure if she should get the new covid booster. * Patient would like a referral to ob-leaf coverer. * Patient reports she has lost weight 55 lbs since March with [employer]. [facility] Work Phone: History of Present illness Narrative* Patient is a 41 y/o female with a history of HTN who presents here today for evaluation of low blood pressure and to discuss pain. She is using a cane and wearing a brace. * Patient has not had surgery since last office visit. She needs to have a slight revision and have scar tissue removed. She also injured a ligament. She has a follow up appointment with her surgeon todiscuss her options. She is not ready for surgery. She has resumed physical therapy. Patient reports constant pain. Her doctor recommended antidepressant for pain. She is concerned about starting medication since she had a reaction to Wellbutrin. She reports she took Cymbalta years ago for back pain and felt jittery but states medication helped. She has been taking Advil at night. She would like a disability placard. * Patient reports she has occasional dizzy spells. She was concerned symptoms were due to low blood pressure * Patient is unsure if she should get the new covid booster. * Patient would like a referral to ob-leaf coverer. * Patient reports she has lost weight 55 lbs since March with [employer]. [facility] Work Phone: History of Present illness Narrative* Patient is a 41 y/o female with a history of HTN who presents here today for evaluation of low blood pressure and to discuss pain. She is using a cane and wearing a brace. * She has been struggling for quite some time with the chronic pain in her foot and the joint pain struggling with her weight it is very frustrating for her we had a long extensive discussion * It is really impacting her life she wants to get back to being active and it is very hard due to the pain the surgery was successful however she is still bothered by joint pain in her foot and other areas which has been problematic and its leading to some sadness and feeling a little bit down she has some mild depressive symptoms does get tearful at times but but for the most part is doing well note not a danger to herself or others her quality of life is poor at this time and she is asking forsome sort of help with pain and also with her mood * Patient has not had surgery since last office visit. She needs to have a slight revision and have scar tissue removed. She also injured a ligament. She has a follow up appointment with her surgeon todiscuss her options. She is not ready for surgery. She has resumed physical therapy. Patient reports constant pain. Her doctor recommended antidepressant for pain. She is concerned about starting medication since she had a reaction to Wellbutrin. She reports she took Cymbalta years ago for back pain and felt jittery but states medication helped. She has been taking Advil at night. She would like a disability placard. * Patient reports she has occasional dizzy spells. She was concerned symptoms were due to low blood pressure * Patient is unsure if she should get the new covid booster. * Patient would like a referral to ob-leaf coverer. * Patient reports she has lost weight 55 lbs since March with [employer]. -[facility] Work Phone: History of Present illness Narrative* Patient is a 41 y/o female with a history of HTN who presents here today for a follow up visit regarding medication management. She is using a cane. * Patient reports blurry vision on 20 mg duloxetine. She states it has been hard for her to adjust from distance to close up. Patient denies weakness on one side, numbness, dropping, trouble thinking of words or trouble swallowing. She states pain is still present when she walks but has resolved at rest. She is able to sleep. * Patient reports atrophy in her calf muscle since she had the boot. She has resumed physical therapy. She has constant leg cramps at night. She is staying well hydrated and taking magnesium supplement. She states she had a calf lengthening surgery. She is following a low sodium diet. Her dad has unex plained leg cramps in both legs. Applying heat helps a little. [facility] Work Phone: History of Present illness Narrative* Patient is a 41 y/o female with a history of HTN who presents here today for a follow up visit regarding medication management. She is using a cane. * Patient reports blurry vision on 20 mg duloxetine. She states it has been hard for her to adjust from distance to close up. Patient denies weakness on one side, numbness, dropping, trouble thinking of words or trouble swallowing. She states pain is still present when she walks but has resolved at rest. She is able to sleep. * Patient reports atrophy in her calf muscle since she had the boot. She has resumed physical therapy. She has constant leg cramps at night. She is staying well hydrated and taking magnesium supplement. She states she had a calf lengthening surgery. She is following a low sodium diet. Her dad has unex plained leg cramps in both legs. Applying heat helps a little. -[facility] Work Phone: Summary Purpose Family History Unknown Family Member Name Dates Details Salivary gland cancer: Fathe r Status:Active Unknown Family Member Name Dates Details Salivary gland cancer: Fathe r Status:Active Unknown Family Member Name Dates Details Salivary gland cancer: Fathe r Status:Active Unknown Family Member Name Dates Details Salivary gland cancer: Fathe r Status:Active Unknown Family Member Name Dates Details Salivary gland cancer: Fathe r Status:Active Unknown Family Member Name Dates Details Salivary gland cancer: Fathe r Status:Active Unknown Family Member Name Dates Details Salivary gland cancer: Fathe r Status:Active Unknown Family Member Name Dates Details Salivary gland cancer: Fathe r Status:Active Unknown Family Member Name Dates Details Salivary gland cancer: Fathe r Status:Active Unknown Family Member Name Dates Details Salivary gland cancer: Fathe r Status:Active Unknown Family Member Name Dates Details Salivary gland cancer: Fathe r Status:Active Unknown Family Member Name Dates Details Salivary gland cancer: Fathe r Status:Active Unknown Family Member Name Dates Details Salivary gland cancer: Fathe r Status:Active Unknown Family Member Name Dates Details Salivary gland cancer: Fathe r Status:Active Unknown Family Member Name Dates Details Salivary gland cancer: Fathe r Status:Active Unknown Family Member Name Dates Details Salivary gland cancer: Fathe r Status:Active Unknown Family Member Name Dates Details Salivary gland cancer: Fathe r Status:Active Advance Directives No Advanced Directives Records FoundNo Advanced Directives Records FoundNo Advanced Directives Records FoundNo Advanced Directives Records FoundNo Advanced Directives Records FoundNo Advanced Directives Records FoundNo Advanced Directives Records FoundNo Advanced Directives Records FoundNo Advanced Directives Records Found Chief Complaint pt is here for f/u from ankle surgery and HTN. also would like something for anxiety.Rash under breasts.Rash under breasts.possible kidney stone.Kidney StonesKidney Stonespossible low blood pressure/ pain management.possible low blood pressure/ pain management.possible low blood pressure/ pain management.1 month follow up.1 month follow up.swollen gland.swollen gland. Reason for Referral Specialty Diagnoses / Procedures Referred By Aaron gilliam Referred To Contact Radiology Diagnoses Bronchitis Procedures XR chest [place] [id number] [address] [address] Referral ID Status Reason Start Date Expiration Date Visits Requested Visits Authorized [id number] Authorized Perform Procedure 3 10/20/2024 1 1 Additional Source Comments INFORMATION SOURCE (unrecogn ized section and content) DATE CREATED AUTHOR 10/11/2020 [employer] DATE CREATED AUTHOR AUTHOR'S ORGANIZ ATION 11/19/2021 [facility] DATE CREATED AUTHOR AUTHOR'S ORGANIZ ATION 01/25/2022 [facility] DATE CREATED AUTHOR AUTHOR'S ORGANIZ ATION 09/12/2022 [facility] DATE CREATED AUTHOR AUTHOR'S ORGANIZ ATION 09/16/2022 [employer] DATE CREATED AUTHOR AUTHOR'S ORGANIZ ATION 03/09/2023 [facility] DATE CREATED AUTHOR AUTHOR'S ORGANIZ ATION 07/19/2023 [facility] DATE CREATED AUTHOR AUTHOR'S ORGANIZ ATION 10/23/2023 [facility] DATE CREATED AUTHOR AUTHOR'S ORGANIZ ATION 10/26/2023 [facility] REASON FOR VISIT (unrecogniz ed section and content) Reason Comments Sinusitis Pt is here for sinus infection Reason Comments Med Refill RIGHT L5, S1 TRANSFORAMINAL EPIDURAL STEROID INJFOLLOW UP AFTER RIGHT SYMPATHETIC NBREF BY DR MO FOR PAIN IN RIGHT ANKLE AND JOINTS OF RIGHT FOOT Care Teams (unrecognized sec tion and content) 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 This clinical summary was aggregated from multiple sources. Caution should be exercised in using it in the provision of clinical care. This summary normalizes information from multiple sources, and as a consequence, information in this document may materially change the coding, format and clinical context of patient data. In addition, data may be omitted in some cases. CLINICAL DECISIONS SHOULD BE BASED ON THE PRIMARY CLINICAL RECORDS. [facility] [employer], [facility]. provides no warranty or guarantee of the accuracy or completeness of information in this document.
--- NOTE | 2023-12-04 09:36 | CT_ITS ---
The [address] [address] Patient Name: SERA MAHONEY MRN: [id number] date: 1980 Sex: F Assigned Patient Location: CT Current Patient Location: CT Accession/Order Number: [id number] Exam Date: 12/04/2023 09:42 Report Date: 12/04/2023 11:46 At the request of: FRANCIA COLLAZO Procedure: CT ankle RT wo con Exam Type: CT RIGHT ANKLE Exam Date and Time: 12/04/2023 9:42 AM EST Indication: 43 years old Female with pain, prior surgery Comparison: Radiographs 11/10/2023 TECHNIQUE: Axial CT images of the right ankle were obtained without intravenous contrast. Coronal and sagittal reformatted images were obtained. Dose reduction techniques were achieved by using automated exposure control and/or adjustment of mA and/or kV according to patient size and/or use of iterative reconstruction technique. FINDINGS: No acute displaced fractures identified. There are surgical changes from right ankle arthroplasty. Hardware appears intact. Ankle mortise appears intact. The midfoot appears congruent. Lisfranc joint is congruent on this nonweightbearing study. No bony erosive or surgical changes identified. The knee is congruent with mild to moderate tricompartmental osteoarthritis. No joint effusion. CT/CT ankle RT wo con IMPRESSION: Postsurgical changes without acute abnormality. Electronically authenticated by: SARI BROOKS Date: 12/04/2023 11:46
== END 2023-12-04 09:28 | disposition home or self-care (01) ==
LOC: CT 09:27
PROVIDERS: Visit Provider Podiatrist Foot & Ankle Surgery
DX: M87.071 Idiopathic aseptic necrosis of right ankle (principal); M19.171 Post-traumatic osteoarthritis, right ankle and foot; Z96.661 Presence of right artificial ankle joint
CPT/HCPCS: 73700

== ENCOUNTER 2024-01-20 08:52 | Outpatient (OUT) | payer OTHER, SELFPAY ==
--- NOTE | 2024-01-20 08:55 | ECG_ITS ---
The [facility] Test Date: 2024-01-20 Pat Name: SERA MAHONEY Department: Room: - Gender: Female [employer] Service Coordinator: : 1980 Requested By: Order Number: [id number] Reading MD: RAMON CAST Measurements Intervals [place] Rate: 77 P: 44 WA: 151 QRS: 13 QRSD: 74 T: 27 QT: 351 QTc: 397 Interpretive Statements SINUS RHYTHM Compared to ECG 01/07/2023 09:49:50 No significant changes Electronically Signed On 01-20-2024 22:21:33 EDT by RAMON CAST
--- OUTSIDE RECORDS SUMMARY | 2024-01-20 09:07 | XMS_ITS | CCD ---
Author Name Unknown Address [id number] [place] [address] [facility] Care Team Providers Care Grease Renderer Name Role Phone Hetal Alonso Unavailable Unavailable Unavailable Unavailable Unavailable CELESTE, Dr. HETAL RAMOS Primary Care ARLEHT Ji Attending Unavailable CELESTE, Dr. HETAL RAMOS Primary Care ARLETH Ji Attending Unavailable CELESTE, Dr. HETAL RAMOS Referring Unaidi labviola ALONSO, Dr. HETAL RAMOS Primary Care Efreni labviola ALONSO, Dr. HETAL RAMOS Attending Unavai labviola ALONSO, Dr. HETAL RAMSO Referring Unavai lable ALONSO, Dr. HETAL RAMOS Attending Unavai lable CELESTE, Dr. HETAL RAMOS Referring Unavai labviola ALONSO, Dr. HETAL RAMOS Primary Care Dinavai labviola ALONSO, Dr. HETAL RAMOS Primary Care Unavai labviola ALONSO, Dr. HETAL RAMOS Attending Unavai lable CELESTE, Dr. HETAL RAMOS Referring Unavai lable CELESTE, Dr. HETAL RAMOS Attending Unavai labviola ALONSO, Dr. HETAL RAMOS Referring Unavai labviola ALONSO, Dr. HETAL RAMOS Primary Care FRANCIA Lucero Admitting Unavailable FRANCIA COLLAZO Attending Unavailable BOYD, DR WELLINGTON Forrest Consulting Unavailable FRANCIA COLLAZO Consulting Unavailable FRANCIA COLLAZO Admitting Unavailable FRANCIA COLLAZO Attending Unavailable LIT, DR JERZY Watts Consulting Unavailable FRANCIA COLLAZO Consulting Unavailable HIGHLANDER, FRANCIA Anderson Admitting Unavailable [...] Admitting Unavailable HIGHLANDER, FRANCIA Anderson Attending Unavailable KALAER, DR JERZY Watts Consulting Unavailable HIGHLANDER, FRANCIA Anderson Consulting Unavailable BradenCesarif Unavailable Hetal Alonso MD Primary Care Provider Hetal Alonso MD Unavailable ALONSO, HETAL Primary Care Unavailable HUTCHINSON DPM, KOREY Attending Unavailable HUTCHNISON DPM, KOREY Referring Unavailable ALONSO, HETAL Primary [...] STEFAN SOTO Attending Unavailabl e ALONSO, HETAL Primary Care Unavailable HIGHLANDER, FRANCIA [...] Referring Unavailable HETAL ALONSO MD Attending Unavailable ALONSO, HETAL Primary Care Unavailable ALONSO, HETAL K Attending Unavailable ALONSO, HETAL K Primary Care Unavailable HETAL ALONSO Attending Unavailable HETAL ALONSO Primary Care Unavailable HETAL ALONSO Attending Unavailable HETAL ALONSO Primary Care Unavailable Hetal Alonso MD Unavailable Allergies Allergy Classification Reported Allergen(s) Allergy Type Date of Onset Reaction(s) Facility Acetaminophen / oxyCODONE (2 sources) Acetaminophen / oxyCODONE; Translations: [Percocet TABS] [facility] [place] Work Phone: Macrolides (antibiotic) (1 source) Azithromycin; Translations: [Zithromax PACK] [facility] [place] Work Phone: (20 sources) Acetaminophen / oxyCODONE; Translations: [Percocet TABS] Drug Allergy 2 Hallucinations, Rash [facility] [place] Work Phone: (19 sources) Azithromycin; Translations: [Zithromax PACK] Drug Allergy 2 Rash [facility] [place] Work Phone: (2 sources) Acetaminophen / oxyCODONE Drug Allergy [facility] Repository (2 sources) Adhesive agent Drug allergy (disorder) [facility] Repository (3 sources) Azithromycin; Translations: [AZITHROMYCIN] Drug Allergy 2 [facility] Rep[facility] (1 source) Acetaminophen / oxyCODONE; Translations: [...] as needed Orally every 6 hrs Active [id number] 200 actuat albuterol 0.09 mg/actuat metered dose inhaler (2 sources) beta2-Adrenergic Agonist Start: 10-21-2023 End: 10-20-2024 take [...] : 18-Jul-2022 Active Ethinyl Estradiol / Levonorgestrel (3 sources) Progestin, Estrogen, Progestin-containing Intrauterine Device Start: [...] G89.29 Active meloxicam 15 mg oral tablet (18 sources) Nonsteroidal Anti-inflammatory Drug Start: 06-28-2023 End: [...] oral solution (1 source) alpha-Adrenergic Agonist, Uncompetitive U-ttbfoo-H-aspartat e Receptor Antagonist, Sigma-1 Agonist Start: 10-21-2023 [...] Hetal Alonso MD Start : 18-Jul-2022 Active escitalopram 5 mg oral tablet (1 source) Serotonin Reuptake Inhibitor Start: 12-27-2023 End: 01-12-2024 take 1 tablet by mouth once daily escitalopram (Lexapro) 5 mg tablet Indications: Adjustment disorder with mixed anxiety and depressed mood Take 1 tablet (5 mg) by mouth once daily. 90 tablet 3 12/27/2023 01/12/2024 Discontinued (Side effects) fluconazole 150 mg oral tablet (15 sources) [...] Active Problems Problem Classification Problem Date Documented Date Episodic/Chronic Adjustment disorders (20 sources) Adjustment disorder with mixed anxiety and depressed mood; Translations: [Adjustment disorder with mixed anxiety and depressed mood] Onset: 07-18-2023 07-18-2023 Chronic Chronic obstructive pulmonary disease and bronchiectasis (5 sources) Bronchitis; Translations: [Bronchitis, not specified as acute or chronic] Onset: 10-21-2023 10-21-2023 Episodic Deficiency and other anemia (1 source) Anemia, unspecified; Translations: [ANEMIA UNSPECIFIED] Onset: 01-23-2023 Episodic Endometriosis (3 sources) Uterine adenomyosis; Translations: [Adenomyosis] Onset: 08-17-2013 [...] Episodic Comment on above: Added by Problem Lis t Migration; 2013-10-13; Osteoarthritis (5 sources) Post-traumatic osteoarthritis, right ankle and foot; Translations: [POST-TRAUM OSTEOARTHRITIS RT ANK FT] Onset: 01-23-2023 Chronic Other acquired deformities (1 source) Contracture, right ankle; Translations: [CONTRACTURE RIGHT ANKLE] Onset: 01-23-2023 Chronic Other aftercare (1 source) roasterman (current) use of aspirin; Translations: [CHCF CURRENT USE OF ASPIRIN] Onset: 01-23-2023 Episodic [...] [PLANTAR FASCIAL FIBROMATOSIS] Onset: 01-23-2023 Episodic Other connective tissue disease (2 sources) Other symptoms and signs involving the musculoskeletal system; Translations: [Other symptoms and signs involving the musculoskeletal system] Onset: 12-27-2023 Episodic Other connective tissue disease (2 sources) Paraparesis; Translations: [Other symptoms and signs involving the musculoskeletal system] Onset: 01-17-2024 12-27-2023 Episodic Other injuries and conditions due to [...] lower limb] Chronic Other nervous system disorders (3 sources) Complex regional pain syndrome of lower limb; Translations: [Complex regional pain syndrome I of unspecified lower limb] Onset: 05-14-2023 07-18-2023 Chronic Other nervous system disorders (3 sources) Chronic pain syndrome; Translations: [Chronic pain syndrome] Onset: 05-14-2023 07-18-2023 Chronic Other non-traumatic joint disorders (1 source) Other specified joint disorders, right ankle and foot; Translations: [OTHER SPEC JOINT D/O RT ANKLE FOOT] Onset: 01-23-2023 Episodic Other non-traumatic joint disorders (7 sources) Pain in right ankle and joints of right foot; Translations: [PAIN IN RIGHT ANKLE] Onset: 07-25-2022 Episodic Other non-traumatic joint disorders (2 sources) Pain in right hip; Translations: [Pain in right hip] Onset: 12-27-2023 Episodic Other non-traumatic joint disorders (2 sources) Pain in left hip; Translations: [Pain in left hip] Onset: 12-27-2023 Episodic Other non-traumatic joint disorders (2 sources) Hip pain; Translations: [Pain in right hip] Onset: 01-17-2024 12-27-2023 Episodic Other nutritional; endocrine; and metabolic disorders [...] Problem Date Documented Date Episodic/Chronic Abdominal pain (17 sources) Right flank pain; Translations: [Abdominal pain, other specified site] Onset: 07-18-2023 Resolved: 07-18-2023 07-18-2023 Episodic Calculus of urinary tract (20 sources) Renal colic; Translations: [Renal colic] Onset: 07-18-2023 Resolved: 07-18-2023 07-18-2023 Episodic Genitourinary symptoms and ill-defined conditions (20 sources) Blood in urine; Translations: [Hematuria, unspecified] Onset: 07-18-2023 Resolved: 07-18-2023 07-18-2023 Episodic Lymphadenitis (5 sources) Lymphadenopathy; Translations: [Enlargement of lymph nodes] Onset: 07-18-2023 Resolved: 07-18-2023 07-18-2023 Episodic Mood disorders (20 sources) Depressive disorder; Translations: [Depressive disorder, not elsewhere classified] Onset: 07-18-2023 Resolved: 12-27-2023 07-18-2023 Chronic Comment on above: Added by Problem Lis t Migration; 2013-10-13; Mycoses (19 sources) Candidal intertrigo; Translations: [Candidiasis of skin and nails] Onset: 07-18-2023 Resolved: 07-18-2023 07-18-2023 Episodic Other connective tissue disease (6 sources) Cramp in lower limb; Translations: [Cramp of limb] Onset: 07-18-2023 Resolved: 07-18-2023 07-18-2023 Episodic Other connective tissue disease (4 sources) Pain in right foot; Translations: [PAIN IN RIGHT FOOT] Onset: 11-14-2022 Episodic Other injuries and conditions due to external causes (3 sources) Injury of left hip region; Translations: [Unspecified injury of left hip, initial encounter] Onset: 07-18-2023 Resolved: 07-18-2023 07-18-2023 Episodic Other non-traumatic joint disorders (3 sources) Ankle pain; Translations: [Pain in right ankle and joints of right foot] Onset: 05-14-2023 Resolved: 07-18-2023 07-18-2023 Episodic Other and delivery including normal (3 sources) Vaginal delivery; Translations: [Encounter for full-term uncomplicated delivery] Onset: 06-03-2012 07-18-2023 Episodic Other upper respiratory disease (20 sources) Congestion of nasal sinus; Translations: [Other disease of nasal cavity and sinuses] Onset: 07-18-2023 Resolved: 07-18-2023 07-18-2023 Episodic Other upper respiratory infections (20 sources) Acute pharyngitis; Translations: [Acute pharyngitis] Onset: 07-18-2023 Resolved: 07-18-2023 07-18-2023 Episodic Residual codes; unclassified (20 sources) History of ankle surgery; Translations: [Other postprocedural status] Onset: 05-14-2023 07-18-2023 Episodic Spondylosis; intervertebral disc disorders; other back problems (20 sources) Backache; Translations: [Backache, unspecified] Onset: 07-18-2023 Resolved: 07-18-2023 Episodic Superficial injury; contusion (20 sources) Foreign body of foot; Translations: [Superficial foreign body (splinter) of foot and toe(s), without major open wound and without mention of infection] Onset: 07-18-2023 Resolved: 07-18-2023 07-18-2023 Episodic Unclassified (3 sources) Onset: 06-28-2023 Resolved: 12-27-2023 06-28-2023 Results Test Name Value Interpretation Reference [...] 11:18:00) Weight Measured - lbs2: 280 lb (05/14/23 11:18:00) Height/Length Measured - in2: 66 in (05/14/23 [...] 15, 2023 09:00 am EDT LW PT [address] [facility] [address] PM Follow Up LE pain Saturday DEWAYNE GARRISON MD June 17, 2023 01:15 pm EDT MM PMCL [address] [facility] [address] [facility] [address] Medications What How Much When Why Instructions New meloxicam (Mobic 15 mg oral tablet) 1 Tabs Oral DAILY Duration: 30 Days Refills: 5 Pickup at [facility] #52360 New topiramate (Topamax 50 mg oral tablet) See instructions Refills: 5 1-2 tabs ORAL HS Pickup at [facility] #63160 New venlafaxine (venlafaxine 37.5 mg oral tablet = effexor) 1 Tabs Oral TWICE A DAY Duration: 30 Days Refills: 5 Pickup at [facility] #21674 Unchanged acetaminophen-hydrocodone (acetaminophen-HYDROcodone 325 mg-5 mg oral [...] for as needed for nausea/vomiting Pharmacy Information [id number]: [address] [place], [place] [id number] [phone] What How Much When Comments Stop Taking [...] call to get immediate medical attention! Normal [facility] Comprehensive Intake - Texto n 05-14-2023 [...] or previously received : No Destinee James 05/14/2023 11:18 EDT Measurements Ht/Wt Measurement Refused [...] in, 168 cm) Body Mass Index Measured Armenian : 45.19 kg/m2 BSA Armenian : 2.43 m2 Destinee James 05/14/2023 11:18 EDT Vitals Require BP : [...] quantified : No pain present Destinee James 05/14/2023 11:18 EDT Infection Screening - Ambulatory Exposure AND/OR close contact with a person under investigation or laboratory-confirmed COVID-19 individual within 14 days of symptom onset AND/OR any of the following: : No Do you live/work in a high risk situation (congregated living, hemodialysis, infusion clinic, halfway, assisted living, halfway, homeless halfway, etc.)? : No Destinee James 05/14/2023 11:18 EDT Depression Screening Is patient currently : None of the Below Feeling Down, Depressed, Hopeless : Not at all Little Interest - Pleasure in Activities : Not at all Initial Depression Screen Score : 0 Depression Screening Score 0 : No Destinee James 05/14/2023 11:18 EDT Falls Risk Assessment Is [...] Destinee James - 05/14/2023 11:18 EDT Normal [facility] PM-OP Progress Notes-Provide puja 05-14-2023 PM-OP Progress Notes-Provider Chief Complaint pt reports pain in ankle and foot, pt rartes pain a 5 out of 10 on vas, pt name and verifed. History of Present Illness This is a pleasant 42-year-old patient who presents to the pain clinic at [facility], for evaluation and treatment of [...] and went to see a doctor in [place]. She had 3 deep printed talus implant [...] since her injury. She is now a [id number] mom. Patient does want to go back to work and be able to perform activities of her daily living without any assistance. Patient has had physical therapy for 3 years and is still in physical therapy at [facility]. Her last session is tomorrow. Her physical [...] (05/14/23 11:18:00) Diastolic Blood Pressure: 88 mmHg (05/14/23:18:00) Apical Heart Rate: 88 bpm (05/14/23:18:00) SpO2: 98 % (05/14/23:18:00) Mean Arterial Pressure: 106 mmHg (05/14/23:18:00) BP Site2: Left arm (05/14/23:18:00) Height/Length Measured: 168 cm (05/14/23:18:00) Weight Measured: 127 kg (05/14/23:18:00) Body Mass Index Measured: 45 kg/m2 (05/14/23:18:00) Weight Measured - lbs2: 280 lb (05/14/2318:00) Height/Length Measured - in2: 66 in (05/14/2318:00) Body Mass Index Measured English2: 45.19 kg/m2 (05/14/23:18:00) BSA: 2.43 m2 (05/14/23:18:00) Ht/Wt Measurement Refused by Patient?2: No (05/14/23 11:18:00) Depression Screening Scores Initial Depression Screen Score: 0 (05/14/23 11:18:00) Fall Risk Assessment Is the patient ambulatory (mobile): Yes (05/14/23 11:18:00) Have you had a fall within the past: No (05/14/23 11:18:00) Have you had 2 or more falls in the past: No (05/14/23 11:18:00) Vital signs reviewed: normal The patient is [...] to li (more content not included)... Normal [facility] PT Outpatient Time Spent Wit h Pt-Texton 04-16-2023 PT Outpatient Time Spent With Pt-Text PT Outpatient Time Spent With Patient Entered On: 04/16/2023 17:54 EDT Performed On: 04/16/2023 17:53 EDT by Meredith Menendez PTA Time Spent with Patient - Outpatient PT Time In : 08:00 EST PT Time Out : 08:45 EST PT Therapeutic Exercise Time : 45 minutes MICA SIZER Therapeutic Exercise Units : 3 units PT Total Timed Code Treatment Units : 3 units PT Total Timed Code Tx Minutes : 45 minutes 8 Min Rule Unit Check PT OP : 3 units PT Total Treatment Time Rehab : 45 minutes 8 Min Rule Unit Difference PT OP : 0 Meredith Menendez PTA - 04/16/2023 17:53 EDT Normal [facility] PT Outpatient Time Spent Wit h Pt-Texton 03-26-2023 PT Outpatient Time Spent With Pt-Text PT Outpatient Time Spent With Patient Entered On: 03/26/2023 11:30 EDT Performed On: 03/26/2023 11:26 EDT by Meredith Menendez PTA Time Spent with Patient - Outpatient PT Time In : 08:45 EST PT Time Out : 09:30 EST PT Vasopneumatic Devices Time : 15 minutes MICA SIZER Vasopneumatic Devices Units : 1 units PT Soft Tissue Mobility Time : 30 minutes MICA SIZER Soft Tissue Mobility Units : 2 units [...] OP : 0 Shon Meredith PALACIO - 03/26/2023 11:26 EDT Normal [facility] Phone Msgon 03-20-2023 Phone Msg - From: Lilia Schneider To: KOREY HUTCHINSON DPM; Sent: 02/25/2023 10:43:13 EDT Caller Name: SERA WOO; Caller Number: H , B [phone] Sera called and is having her EMG done on March 05. She needs a referral to pain management so we can send the note over. Patient has been approved for MRI See Jennifer Normal [facility] Phone Msg - From: Heather Prajapati To: [...] they can be faxed to [employer] @ [phone] or to expedite the process, phoned in at [phone] mri case# for insurance is [id number] and should be included Thanks, Genevieve Omalley auth rep [id number] Malinda Connolly speaking to [employer] for further needs regarding authorization Normal [facility] Phone Msg - From: Emy Davis To: KOREY HUTCHINSON DPM; Sent: 03/07/2023 09:54:43 EDT Subject: MRI Caller Name: SERA WOO; Caller Number: H , B [phone] Sera called to ask for your help [...] and won't get this message until Saturday. [phone] Malinda Connolly is speaking to [employer] [facility] in regards to further action needed [facility] PT Outpatient Time Spent Wit h Pt-Texton 03-14-2023 PT Outpatient Time Spent With Pt-Text PT Outpatient Time Spent With Patient Entered On: 03/14/2023 10:28 EDT Performed On: 03/12/2023 9:30 EDT by Meredith Menendez PTA Time Spent with Patient - Outpatient PT Time In : 08:45 EST PT Time Out : 09:30 EST PT Therapeutic Exercise Time : 45 minutes MICA SIZER Therapeutic Exercise Units : 3 units PT Total Timed Code Treatment Units : 3 units PT Total Timed Code Tx Minutes : 45 minutes 8 Min Rule Unit Check PT OP : 3 units PT Total Treatment Time Rehab : 45 minutes 8 Min Rule Unit Difference PT OP : 0 Meredith Menendez PTA - 03/14/2023 10:28 EDT Normal [facility] PT Outpatient Time Spent Wit h Pt-Texton 03-05-2023 PT Outpatient Time Spent With Pt-Text PT Outpatient Time Spent With Patient Entered On: 03/05/2023 14:10 EDT Performed On: 03/05/2023 14:09 EDT by Meredith Menendez PTA Time Spent with Patient - Outpatient PT Time In : 11:45 EST PT Time Out : 12:30 EST PT Therapeutic Exercise Time : 45 minutes MICA SIZER Therapeutic Exercise Units : 3 units PT Total Timed Code Treatment Units : 3 units PT Total Timed Code Tx Minutes : 45 minutes 8 Min Rule Unit Check PT OP : 3 units PT Total Treatment Time Rehab : 45 minutes 8 Min Rule Unit Difference PT OP : 0 Meredith Menendez PTA - 03/05/2023 14:09 EDT [facility] PT Outpatient Time Spent Wit h Pt-Texton 02-21-2023 PT Outpatient Time Spent With Pt-Text PT Outpatient Time Spent With Patient Entered On: 02/21/2023 18:13 EDT Performed On: 02/21/2023 18:12 EDT by Meredith Menendez PTA Time Spent with Patient - Outpatient PT Time In : 10:15 EST PT Time Out : 11:00 EST PT Gait Training Time : 45 minutes MICA SIZER Gait Training Units : 3 units PT Total Timed Code Treatment Units : 3 units PT Total Timed Code Tx Minutes : 45 minutes 8 Min Rule Unit Check PT OP : 3 units PT Total Treatment Time Rehab : 45 minutes 8 Min Rule Unit Difference PT OP : 0 Meredith Menendez PTA - 02/21/2023 18:12 EDT [facility] PT Outpatient Time Spent Wit h Pt-Texton 02-18-2023 PT Outpatient Time Spent With Pt-Text PT Outpatient Time Spent With Patient Entered On: 02/18/2023 18:12 EDT Performed On: 02/18/2023 18:11 EDT by Meredith Menendez PTA Time Spent with Patient - Outpatient PT Time In : 16:30 EST PT Time Out : 17:15 EST PT Therapeutic Exercise Time : 45 minutes MICA SIZER Therapeutic Exercise Units : 3 units PT Total Timed Code Treatment Units : 3 units PT Total Timed Code Tx Minutes : 45 minutes 8 Min Rule Unit Check PT OP : 3 units PT Total Treatment Time Rehab : 45 minutes 8 Min Rule Unit Difference PT OP : 0 Meredith Menendez PTA - 02/18/2023 18:11 EDT Normal [facility] PT Outpatient Time Spent Wit h Pt-Texton 02-11-2023 PT Outpatient Time Spent With Pt-Text PT Outpatient Time Spent With Patient Entered On: 02/11/2023 19:12 EDT Performed On: 02/11/2023 19:09 EDT by Meredith Menendez PTA Time Spent with Patient - Outpatient PT Time In : 17:45 EST PT Time Out : 18:40 EST PT Vasopneumatic Devices Time : 15 minutes MICA SIZER Vasopneumatic Devices Units : 1 units PT Therapeutic Exercise Time : 15 minutes MICA SIZER Therapeutic Exercise Units : 1 units PT Soft Tissue Mobility Time : 25 minutes MICA SIZER Soft Tissue Mobility Units : 2 units [...] Menendez PTA - 02/11/2023 19:09 EDT Normal [facility] Physician Progr ess Noteon 01-19-2023 [facility] P[facility] Physician Progress Note Reason for Exam [...] to the anterior medial distal tibia Normal [facility] AMB PODIATRY Physician Progress Note Chief [...] Est Pt Mod MDM / 30-39 min 21239, 57 Decision for surgery 01/08/2023 10:01:00 EST, Osteochondral defect of distal tibia / Avascular necrosis of the talus / Right ankle pain / Acute lumbar radiculopathy 2. Avascular necrosis of the talus M87.076 Ordered: AMB Office/Outpt Est Pt Mod MDM / 30-39 min 01614, 57 Decision for surgery 01/08/2023 10:01:00 EST, Osteochondral defect of distal tibia / Avascular necrosis of the talus / Right ankle pain / Acute lumbar radiculopathy 3. Right ankle pain M25.571 Ordered: AMB Office/Outpt Est Pt Mod MDM / 30-39 min [id number], 57 Decision for surgery 01/08/2023 10:01:00 EST, Osteochondral defect of distal tibia / Avascular necrosis of the talus / Right ankle pain / Acute lumbar radiculopathy 4. Acute lumbar radiculopathy M54.16 Ordered: AMB Office/Outpt Est Pt Mod MDM / 30-39 min [id number], 57 Decision for surgery 01/08/2023 10:01:00 EST, [...] for revisional (more content not included)... Normal [facility] HEP B SURFACE ANTIGEN SCREEN on 01-11-2023 HBsAg Screen Negative Normal Negative [facility] Comment on above: Performed By: #### H BSA ####[facility] [id number] [id number]. Raimundo Rayo HEPATITIS C ANTIBODYon 01-11 Hep C Virus Ab Non-Reactive Normal Non Reactive [facility] Comment on above: Result Comment: HCV antibody alone does not differentiate between previously resolved infection and active infection. Equivocal and Reactive HCV antibody results should be followed up with an HCV RNA test to support the diagnosis of active HCV infection. Performed By: #### H CV #### [facility] [address] [place] [address] Dr. Raimundo Rayo HIV 1 AND 2 WITH REFLEXon HIV Screen 4th Generation wRfx Non-Reactive Normal Non Reactive [facility] Comment on above: Result Comment: HIV Negative HIV-1/HIV-2 antibodies and HIV-1 p24 antigen were NOT detected. There is no laboratory evidence of HIV infection. Performed By: #### H IV12 #### [facility] [address] [place] [address] Dr. Raimundo Rayo RPR QUANTon 01-11-2023 Rapid Plasma Reagin, Quant Non-Reactive Normal NonRea<1:1 [facility] Comment on above: Result Comment: Plea se Note: This test does not meet current guidelines for screening and diagnosis of syphilis. This test is intended for following treatment response in patients being treated for syphilis infection. To screen for syphilis infection, a reflex cascade that includes both RPR and a treponema-specific assay should be utilized, such as Treponema pallidum (Syphilis) Screening [place] ([id number]) or Rapid Plasma Reagin (RPR) Test With Reflex to Quantitative RPR and Confirmatory Treponema pallidum Antibodies ([id number]). Performed By: #### R PRQ #### [facility] [address] [place] [address] Dr. Raimundo Rayo HIV 1/2 RAPID (EXPOSURE ONLY )on 01-10-2023 HIV AB Non-Reactive Normal NON-REACTIVE [facility] Comment on above: Performed By: #### R PDHIV #### [facility] [address] [place] [address] Dr. Raimundo Rayo HIV AG Non-Reactive Normal NON-REACTIVE [facility] Comment on above: Performed By: #### R PDHIV #### [facility] [address] [address] [address] Raimundo Rayo INTERNAL CONTROLS Within Normal Limits Normal Wi thin Normal Limits [facility] Comment on above: Performed By: #### R PDHIV #### [facility] [address] [address] [address] Raimundo Rayo RAPID HIV INFO SEE BELOW Normal [facility] Comment on above: Result Comment: This test is used for the initial screening of the exposure source. Confirmation of all reactive results will be obtained through reference lab testing. Performed By: #### R PDHIV #### [facility] [address] [address] [address] Raimundo Rayo POINT OF CARE GLUCOSEon Glucose [Mass/Vol] 86 mg/dL Normal 74-106 [facility] Comment on above: Performed By: #### P OCGLUC #### [facility] [address] [address] [address] Raimundo Rayo Glucose [Mass/Vol] 79 mg/dL Normal 74-106 [facility] Comment on above: Performed By: #### P OCGLUC ####[facility] [address] [address]Dr. Raimundo Rayo PREG HCG QUALon 01-10-2023 , QUAL Negative Normal NEGATIVE [facility] Comment on above: Performed By: #### P REG #### [facility] [address] [address] [address] Raimundo Rayo XR ANKLE RT MIN [...] by: CALEB KERN Date: 2023-01-10 16:24 Normal [facility] XR FOOT RT 2Von 01-10-2023 XR FOOT RT 2V EXAM: XR FOOT RT 2V. HISTORY: Pain. COMPARISON: 11/14/2022. TECHNIQUE: Intraoperative fluoroscopic view of the right ankle was obtained. Total fluoroscopy time: 32.1 seconds. FINDINGS/IMPRESSION: Intraoperative fluoroscopic utilization for right ankle surgery. Please refer to the operative report for detailed discussion. Electronically authenticated by: CALEB WALLACEWAL Date: 2023-01-10 17:11 Normal [facility] Ambulatory Clinical Summaryo n 01-08-2023 [...] call to get immediate medical attention! Normal [facility] Comprehensive Intake - Texto n 01-08-2023 [...] : No pain present Katiana Case MA 01/08/2023 9:38 EST Infection Screening - Ambulatory Exposure AND/OR close contact with a person under investigation or laboratory-confirmed COVID-19 individual within 14 days of symptom onset AND/OR any of the following: : No Do you live/work in a high risk situation (congregated living, hemodialysis, infusion clinic, halfway, assisted living, halfway, homeless halfway, etc.)? : No Katiana Case MA 01/08/2023 9:38 EST Depression Screening Is patient currently : None of the Below Feeling Down, Depressed, Hopeless : Not at all Little Interest - Pleasure in Activities : Not at all Initial Depression Screen Score : 0 Depression Screening Score 0 : No Katiana Case MA 01/08/2023 9:38 EST Falls Risk Assessment Is the patient ambulatory (mobile) : Yes Have you had 2 or more falls in the past year : No Have you had a fall within the past year that has caused an injury : No Patient screen for fall risk : no falls in last year OR 1 fall with no injury in last year Katiana Case MA 01/08/2023 9:38 EST Normal [facility] CBC AUTO DIFFon 01-07-2023 BASO # 0.0 103/ul Normal 0.0-0.1 [facility] Comment on above: Performed By: #### C BC #### [facility] [address] [place] [address] Dr. Raimundo Rayo Basophils/100 WBC (Bld) 0.6 % Normal 0.2-2.0 [facility] Comment on above: Performed By: #### C BC #### [facility] [address] [place] [address] Dr. Raimundo Rayo EO # 0.1 103/ul Normal 0.0-0.7 [facility] Comment on above: Performed By: #### C BC #### [facility] [address] [place] [address] Dr. Raimundo Rayo Eosinophils/100 WBC (Bld) 1.1 % Normal 0.9-7.0 [facility] Comment on above: Performed By: #### C BC #### [facility] [address] [place] [address] Dr. Raimundo Rayo Erythrocyte distribution width (RBC) [Ratio] 13.6 % Normal 11.0-15.0 [facility] Comment on above: Performed By: #### C BC #### [facility] [address] [place] [address] Dr. Raimundo Rayo Hematocrit (Bld) [Volume fraction] 40.0 % Normal 36.0-48.0 [facility] Comment on above: Performed By: #### C BC #### [facility] [address] [place] [address] Dr. Raimundo Rayo Hemoglobin (Bld) [Mass/Vol] 13.0 g/dL Normal 12.0-16.0 [facility] Comment on above: Performed By: #### C BC #### [facility] [address] [place] [address] Dr. Raimundo Rayo IG # 0.03 10e3/ul Normal 0.00-0.03 [facility] Comment on above: Performed By: #### C BC #### [facility] [address] [place] [address] Dr. Raimundo Rayo IG % 0.4 % Normal 0.0-0.5 [facility] Comment on above: Performed By: #### C BC #### [facility] [address] [place] [address] Dr. Raimundo Rayo LYMPH # 1.7 103/ul Normal 1.2-3.8 [facility] Comment on above: Performed By: #### C BC #### [facility] [address] [place] [address] Dr. Raimundo Rayo Lymphocytes/100 WBC (Bld) 23.8 % Normal 20.5-60.0 [facility] Comment on above: Performed By: #### C BC #### [facility] [address] [place] [address] Dr. Raimundo Rayo MANUAL DIFF REQ NO Normal [facility] Comment on above: Performed By: #### C BC #### [facility] [address] [place] [address] Dr. Raimundo Rayo MCH (RBC) [Entitic mass] 28.4 pg Normal 26.7-34.0 [facility] Comment on above: Performed By: #### C BC #### [facility] [address] [place] [address] Dr. Raimundo Rayo MCHC (RBC) [Mass/Vol] 32.5 g/dL Normal 29.9-35.2 [facility] Comment on above: Performed By: #### C BC #### [facility] [address] [place] [address] Dr. Raimundo Rayo MCV (RBC) [Entitic vol] 87.5 fL Normal 81.0-99.0 [facility] Comment on above: Performed By: #### C BC #### [facility] [address] [place] [address] Dr. Raimundo Rayo MONO # 0.6 103/ul Normal 0.3-0.8 [facility] Comment on above: Performed By: #### C BC #### [facility] [address] [place] [address] Dr. Raimundo Rayo Monocytes/100 WBC (Bld) 8.0 % Normal 1.7-12.0 [facility] Comment on above: Performed By: #### C BC #### [facility] [address] [place] [address] Dr. Raimundo Rayo NEUT # 4.8 103/ul Normal 1.4-6.5 [facility] Comment on above: Performed By: #### C BC #### [facility] [address] [address] [address] Raimundo Rayo Neutrophils/100 WBC (Bld) 66.1 % Normal 43.0-75.0 [facility] Comment on above: Performed By: #### C BC #### [facility] [address] [address] [address] Raimundo Rayo Platelet mean volume (Bld) [Entitic vol] 8.5 fL Critically low 9.5-13.5 [facility] Comment on above: Performed By: #### C BC #### [facility] [address] [address] [address] Raimundo Rayo PLT 336 103/ul Normal 150-450 [facility] Comment on above: Performed By: #### C BC #### [facility] [address] [address] [address] Raimundo Rayo RBC 4.57 106/ul Normal 4.20-5.40 [facility] Comment on above: Performed By: #### C BC #### [facility] [address] [address] [address] Raimundo Rayo WBC 7.2 103/ul Normal 4.0-11.0 [facility] Comment on above: Performed By: #### C BC #### [facility] [address] [address] [address] Raimundo Rayo PROF CHEM 8 (BAS METB)on Anion gap [Moles/Vol] 11.3 mmol/L Normal [facility] Comment on above: Performed By: #### B MP ####[facility] [address] [address]Dr. Raimundo Rayo Calcium [Mass/Vol] 9.1 mg/dL Normal 8.5-10.1 [facility] Comment on above: Performed By: #### B MP ####[facility] [address] [address]Dr. Raimundo Rayo Chloride [Moles/Vol] 105 mmol/L Normal 98-107 [facility] Comment on above: Performed By: #### B MP ####[facility] [address] [address]Dr. Raimundo Rayo CO2 [Moles/Vol] 27.0 mmol/L Normal 21.0-32.0 [facility] Comment on above: Performed By: #### B MP ####[facility] [address] [address]Dr. Raimundo Rayo Creatinine [Mass/Vol] 0.53 mg/dL Critically low 0.55-1.02 [facility] Comment on above: Performed By: #### B MP ####[facility] [address] [address]Dr. Raimundo Rayo EGFR-AF HAITIAN >60 Normal >=60 [facility] Comment on above: Performed By: #### B MP ####[facility] [address] [place], [place] [address]Dr. Raimundo Rayo EGFR-NON AF HAITIAN >60 Normal >=60 [facility] Comment on above: Performed By: #### B MP ####[facility] [address] [place], [place] [address]Dr. Raimundo Rayo Glucose [Mass/Vol] 104 mg/dL Normal 74-106 [facility] Comment on above: Performed By: #### B MP ####[facility] [address] [place], [place] [address]Dr. Raimundo Rayo Potassium [Moles/Vol] 4.3 mmol/L Normal 3.5-5.1 [facility] Comment on above: Performed By: #### B MP ####[facility] [address] [place], [place] [address]Dr. Raimundo Rayo Sodium [Moles/Vol] 139 mmol/L Normal 136-145 [facility] Comment on above: Performed By: #### B MP ####[facility] [address] [address]Dr. Raimundo Rayo Urea nitrogen [Mass/Vol] 10.0 mg/dL Normal 7.0-18.0 [facility] Comment on above: Performed By: #### B MP ####[facility] [address] [place], [place] [address]Yw. Raimundo Rayo Urea nitrogen/Creatini ne [Mass ratio] 18.9 mg/mg Normal [facility] Comment on above: Performed By: #### B MP ####[facility] [address] [place], [place] [address]Hi. Raimundo Rayo PT Outpatient Time Spent Wit [...] PT Therapeutic Exercise Time : 45 minutes MICA SIZER Therapeutic Exercise Units : 3 units PT Total Timed Code Treatment Units : 3 units PT Total Timed Code Tx Minutes : 45 minutes 8 Min Rule Unit Check PT OP : 3 units PT Total Treatment Time Rehab : 45 minutes Ronald MS CCC/FACTORY MACHINE COMPUTER OPERATOR, Carolyn - 12/31/2022 10:23 EST 8 Min Rule Unit Difference PT OP : 0 Meredith Menendez PTA - 12/21/2022 9:14 EST Normal [facility] AMB PODIATRY Physician Progr ess Noteon [...] 13:50:00) Weight Measured - lbs2: 262 lb (12/19/22:50:00) Height/Length Measured - in2: 65 in (12/19/22 [...] Est Pt Mod MDM / 30-39 min 36033, 12/19/2022 08:19:00 EST, Osteochondral defect of distal tibia / Avascular necrosis of the talus / Right ankle pain / Acute lumbar radiculopathy 2. Avascular necrosis of the talus M87.076 Ordered: AMB Office/Outpt Est Pt Mod MDM / 30-39 min 56101, 12/19/2022 08:19:00 EST, Osteochondral defect of distal tibia / Avascular necrosis of the talus / Right ankle pain / Acute lumbar radiculopathy 3. Right ankle pain M25.571 Ordered: AMB Office/Outpt Est Pt Mod MDM / 30-39 min 67019, 12/19/2022 08:19:00 EST, Osteochondral defect of distal tibia / Avascular necrosis of the talus / Right ankle pain / Acute lumbar radiculopathy 4. Acute lumbar radiculopathy M54.16 Ordered: AMB Office/Outpt Est Pt Mod MDM / 30-39 min [id number], 12/19/2022 08:19:00 EST, Osteochondral defect of distal [...] anxiety an (more content not included)... Normal [facility] Ambulatory Clinical Summaryo n 12-19-2022 Ambulatory [...] Ortho F/U - (45) Saturday Meredith D (MICA SIZER) (1) December 21, 2022 08:00 am EDT [facility] [address] [facility] [address] PMR Ortho F/U - (45) Saturday Meredith D (MICA SIZER) (1) December 25, 2022 08:45 am EDT LW PT [address] [facility] [address] PMR Ortho F/U - (45) Saturday Mirza D (PT) (2) December 28, 2022 09:00 am EDT LW [facility] [address] [facility] [address] PMR Ortho F/U - (45) Saturday Meredith D (MICA SIZER) (1) January 01, 2023 09:00 am EDT LW PT [address] [facility] [address] PMR Ortho F/U - (45) Saturday Mirza D (PT) (2) January 04, 2023 09:00 am EDT LW PT [address] [facility] [address] PMR Ortho F/U - (45) Saturday Mirza D (PT) (2) January 09, 2023 09:00 am EDT LW PT [address] [facility] [address] Medications What How Much When Why Instructions [...] --1 to get immediate medical attention! Normal [facility] Comprehensive Intake - Texto n 12-19-2022 [...] in, 165 cm) Body Mass Index Measured Armenian : 43.59 kg/m2 BSA Armenian : 2.33 m2 Anastacia Lowe LPN - [...] : No pain present Anastacia Lowe LPN - 12/19/2022 13:50 EST Infection Screening - Ambulatory Exposure AND/OR close contact with a person under investigation or laboratory-confirmed COVID-19 individual within 14 days of symptom onset AND/OR any of the following: : No Do you live/work in a high risk situation (congregated living, hemodialysis, infusion clinic, halfway, assisted living, halfway, homeless halfway, etc.)? : No Anastacia Lowe LPN - 12/19/2022 13:50 EST Depression Screening Is patient currently : None of the Below Feeling Down, Depressed, Hopeless : Not at all Little Interest - Pleasure in Activities : Not at all Initial Depression Screen Score : 0 Depression Screening Score 0 : No Anastacia Lowe LPN - 12/19/2022 13:50 EST Falls Risk Assessment Is [...] injury in last year Anastacia Lowe LPN - 12/19/2022 13:50 EST Normal [facility] PT Outpatient Time Spent Wit h Pt-Texton 12-07-2022 PT Outpatient Time Spent With Pt-Text PT Outpatient Time Spent With Patient Entered On: 12/07/2022 14:35 EST Performed On: 12/07/2022 14:33 EST by Meredith Menendez PTA Time Spent with Patient - Outpatient PT Time In : 13:30 EST PT Time Out : 14:15 EST PT Therapeutic Exercise Time : 45 minutes MICA SIZER Therapeutic Exercise Units : 3 units PT [...] Menendez PTA - 12/07/2022 14:33 EST Normal [facility] PT Outpatient Time Spent Wit h Pt-Texton 11-30-2022 PT Outpatient Time Spent With Pt-Text PT Outpatient Time Spent With Patient Entered On: 11/30/2022 17:35 EST Performed On: 11/30/2022 17:34 EST by Meredith Menendez PTA Time Spent with Patient - Outpatient PT Time In : 16:45 EST PT Time Out : 17:30 EST PT Therapeutic Exercise Time : 35 minutes MICA SIZER Therapeutic Exercise Units : 2 units PT Soft Tissue Mobility Time : 10 minutes MICA SIZER Soft Tissue Mobility Units : 1 units PT Total Timed Code Treatment Units : 3 units PT Total Timed Code Tx Minutes : 45 minutes 8 Min Rule Unit Check PT OP : 3 units PT Total Treatment Time Rehab : 45 minutes 8 Min Rule Unit Difference PT OP : 0 Meredith Menendez PTA - 11/30/2022 17:34 EST Normal [facility] PT Outpatient Time Spent Wit h Pt-Texton 11-27-2022 PT Outpatient Time Spent With Pt-Text PT Outpatient Time Spent With Patient Entered On: 11/27/2022 13:16 EST Performed On: 11/23/2022 9:30 EST by Meredith Menendez PTA Time Spent with Patient - Outpatient PT Time In : 09:30 EST PT Time Out : 10:15 EST PT Therapeutic Exercise Time : 45 minutes MICA SIZER Therapeutic Exercise Units : 3 units PT Total Timed Code Treatment Units : 3 units PT Total Timed Code Tx Minutes : 45 minutes 8 Min Rule Unit Check PT OP : 3 units PT Total Treatment Time Rehab : 45 minutes 8 Min Rule Unit Difference PT OP : 0 Meredith Menendez PTA - 11/27/2022 13:15 EST Normal [facility] CT ANKLE RT WO CONon 18-[address] ANKLE RT WO CON EXAMINATION: [...] by: WELLINGTON NIX Date: 2022-11-21 16:19 Normal [facility] PT Outpatient Time Spent Wit h Pt-Texton 11-09-2022 PT Outpatient Time Spent With Pt-Text PT Outpatient Time Spent With Patient Entered On: 11/09/2022 17:32 EST Performed On: 11/09/2022 10:30 EST by Meredith Menendez PTA Time Spent with Patient - Outpatient PT Time In : 09:45 EST PT Time Out : 10:30 EST PT Therapeutic Exercise Time : 15 minutes MICA SIZER Therapeutic Exercise Units : 1 units PT Soft Tissue Mobility Time : 22 minutes MICA SIZER Soft Tissue Mobility Units : 1 units PT Iontophoresis Time : 8 minutes MICA SIZER Iontophoresis Units : 1 units PT Total Timed Code Treatment Units : 3 units PT Total Timed Code Tx Minutes : 45 minutes 8 Min Rule Unit Check PT OP : 3 units PT Total Treatment Time Rehab : 45 minutes 8 Min Rule Unit Difference PT OP : 0 Meredith Menendez PTA - 11/09/2022 17:29 EST Normal [facility] PT Outpatient Historical Rock a - Texton 2022 PT Outpatient Historical Data - Text PT Outpatient Historical Data Entered On: 2022 10:15 EST Performed On: 2022 10:15 EST by Meredith Menendez PTA PT Outpatient Historical Data Regional Clinical Research Associate Goals : Yes Plan : Yes Manual Therapy : Yes Therapeutic Exercises : Yes Total Visit Count : 28 Precautions/Special Notes : 09/05 Calf -3 KE -5 soleus INV 14, EV 5 STN 4, ff/RF 7 1st MTP 34 deg Left calf KE 5 KF 6 Strength grossly 4/5 except Inver -4/5; tenderness HL and TIB Post. 09/10/22 DF KE 2 KF 3 Meredith Menendez PTA - 2022 10:15 EST Nursing Home Goals - Historical PT Outpt Pt Goal - grid Goal #1 PT Patient,Caregiver Goal : Walk normally without pain Status : Progressing, continue Meredith Menendez PTA - 2022 10:15 EST General Function Goal #1 Goal #2 Goal #3 Goal : Ambulate community distances with normal gait mechanics Return to work Ascend and descend stairs with reciprocal pattern Duration : 6 Weeks 6 Weeks 6 Weeks Status : Initial Initial Progressing, continue Comment : without limitations working on 3-4 step Shon PALACIO, Meredith 2022 10:15 EST Shon PALACIO, Meredith 2022 10:15 EST Shon PALACIO, Meredith 2022 10:15 EST Plan - Historical PT Frequency Rehab Outpatient : 2 times per week PT Duration Rehab Outpatient : 6 Weeks PT Anticipated Treatments, Needs - Outpt : Balance training, Therapeutic exercises, Pain Management, Posture/Body mechanics training, Gait training PT Plan/Goals Established w Pt/Caregiver : Yes Shon PALACIO, Meredith 2022 10:15 EST Manual Therapy - Historical Manual Therapy Activity 1 Activity 2 Type/Technique : Myofascial/Soft tissue mobilization IASTM, Myofascial/Soft tissue mobilization Region : Other: achilles, gastroc and soleus Other: plantar fascia Equipment/Medium : Deep prep Descriptor : 15 15 Shon PALACIO, Meredith 2022 10:15 EST Shon PALACIO, Meredith 2022 10:15 EST Therapeutic Exercise - Historical Custom Therapeutic Exercise Exercise 1 Exercise 2 Exercise 3 Exercise 4 Exercise : NuStep joint mobs Talocrural and subtalar Anterior glides 1st MTP Slow reversals and hold relax stretch into extension of 1st MTP Repetition/Time : Grade III 5' x10 Resist or Assist : Not Performed : X Comment : Shon PALACIO, Meredith 2022 10:15 EST Shon PALACIO, Meredith 2022 10:15 EST Shon PALACIO, Meredith 2022 10:15 EST Shon PALACIO, Meredith 2022 10:15 EST Exercise 5 Exercise 6 Exercise 7 Exercise 8 Exercise : Small knee bends for dynamic achilles stretch slant board stretch Eccentric T-band Posterior Tib Gait training Repetition/Time : 10 30 x 3* 10x2 HEP Resist or Assist : red Not Performed : X X Comment : *Knee extended and then bent shorter stride to normalize patter. Shon PALACIO, Meredith 2022 10:15 EST Shon PALACIO, Meredith 2022 10:15 EST Shon PALACIO, Meredith 2022 10:15 EST Shon MICA SIZER, Meredith 2022 10:15 EST Exercise 9 Exercise 10 Exercise 11 Exercise 12 Exercise : Forward step downs Half dome PF/DF, INV/EV, CW/CCW Bilateral FWD stretch LAQ/ HS curls Repetition/Time : Resist or Assist : 2.5#/green Not Performed : X Comment : 2 then 4 tibial FWD translation Shon MICA SIZER, Meredith - 2022 10:15 EST Shon MICA SIZER, Meredith - 2022 10:15 EST Shon MICA SIZER, Meredith - 2022 10:15 EST Shon MICA SIZER, Meredith - 2022 10:15 EST Exercise 14 Exercise 15 Exercise 16 Exercise 17 Exercise : Upright bike True [place] Strap Calf Stretch KE and KF Half dome PWB alphabet Repetition/Time : 30x3 Resist or Assist : 3 115# Not Performed : X X Comment : Shon MICA SIZER, Meredith 2022 10:15 EST Shon MICA SIZER, Meredith - 2022 10:15 EST Shon MICA SIZER, Meredith - 2022 10:15 EST Shon MICA SIZER, Meredith - 2022 10:15 EST Exercise 18 Exercise 20 Exercise 22 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, 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; athletic tape to foot to relieve PF and to soleus Gait trianing with B walking sticks Repetition/Time : done Resist or Assist : Not Performed : Comment : Shon MICA SIZER, Meredith - 2022 10:15 EST Shon MICA SIZER, Meredith - 2022 10:15 EST Shon MICA SIZER, Meredith - 2022 10:15 EST Normal [facility] PT Outpatient Time Spent Wit h Pt-Texton 2022 PT Outpatient Time Spent With Pt-Text PT Outpatient Time Spent With Patient Entered On: 2022 10:59 EST Performed On: 2022 10:59 EST by Meredith Menendez PTA Time Spent with Patient - Outpatient PT Time In : 10:15 EST PT Time Out : 11:00 EST PT Therapeutic Exercise Time : 45 minutes MICA SIZER Therapeutic Exercise Units : 3 units PT Total Timed Code Treatment Units : 3 units PT Total Timed Code Tx Minutes : 45 minutes 8 Min Rule Unit Check PT OP : 3 units PT Total Treatment Time Rehab : 45 minutes 8 Min Rule Unit Difference PT OP : 0 PMR Chart Review : Yes Meredith Menendez PTA - 2022 10:59 EST Normal [facility] Office Visit (Family Gallito cordova)on 09-11-2022 Follow-up visit Diagnoses/Problems Lymphadenopathy (785.6) (R59.1) [...] Medication NameInstr (more content not included)... Normal [facility] Office Visit (Family Medicin e)on 08-20-2022 Follow-up visit Diagnoses/Problems Depression (311) (F32.A) [...] By signing my name below, I, Cynthia LagunaShaunna condon, attest that this documentation has been prepared [...] Renuka Sanz (more content not included)... Normal [facility] Office Visit (Family Medicin e)on 07-18-2022 Follow-up visit Diagnoses/Problems Benign essential hypertension (401.1) (I10) Avascular necrosis of right talus (733.44) (M87.071) Morbid obesity with BMI of 40.0-44.9, adult (278.01,V85.41) (E66.01,Z68.41) * Orders Avascular necrosis of right talus Start: Disability Placard; Handicap Placard 5years, DX: Arthritis Pain Management Referral Evaluation and Treatment Evaluate AND Treat Status: Active Requested for: [id number] AMA Intake Activity Log Entry by kyle montes ([email or web address]) on 2022-07-24 10:13 Status Change: To Closed - Unable To Schedule[facility] patient her doctor wants her to [...] w/ Tomosynthesis; Status:Hold For - Scheduling; Requested for:[id number]; Radiologist to Determine Optimal Study : Y [...] booster. 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 Patient reports she has lost weight 55 [...] Respiratory: no (more content not included)... Normal [facility] CORONAVIRUS 2019, SCREEN ASY MPTOMATICon 01-23-2022 SARS-CoV-2 (COVID-19) RNA MEKA+probe Ql (Unsp spec) Not detected Normal Not Detected [facility] Comment on above: Result Comment: . This [...] patient management decisions. Fact sheet for providers: https://www.fda.gov/media/485854/download Fact sheet for patients: https://www.fda.gov/media/826059/download This test has received FDA Emergency Use Authorization (EUA) and has been verified by [facility] ([facility]). This test is only authorized for the duration of time that circumstances exist to justify the authorization of the emergency use of in vitro diagnostic tests for the detection of SARS-CoV-2 virus and/or diagnosis of COVID-19 infection under section 564(b)(1) of the Act, 21 U.S.C. 360bbb-3(b)(1), unless the authorization is terminated or revoked sooner. [facility] is certified under CLIA-88 as qualified to perform high complexity testing. Testing is performed in the [facility] laboratories located at [address] [place] [address]. Performed By: #### C OVSC #### [address] [place] [address] Covid 19 Resultson 2 SARS-CoV-2 (COVID-19) RNA [...] You may also be contacted by the [facility] to see if any of your close [...] or Naproxen (Aleve) can also be used. Hlav-omr-evtfdbh cough and cold medicines can be used according to the instructions on the package. Some txzv-iru-upcojxd medicines also contain acetaminophen. Make sure you [...] water are not available, use alcohol-based hand coordinate measuring equipment operator. Avoid touching your eyes, nose, and mouth [...] 24 stanley (more content not included)... Normal [facility] CORONAVIRUS 2019, SCREEN ASY MPTOMATICon 01-22-2022 Lab Specimen Source Nasal, Nasopharyngeal Normal [facility] Comment on above: Performed By: #### C OVSC #### [facility] [address] [place] [address] Coronavirus 2019 RNA by PCR, Screening Asymptomticon 01-22-2022 Coronavirus 2019 RNA by PCR, Screening Asymptomtic Not detected Normal See Below OY-Nugfxiq-Jr franko TAYLOR 400 DO Work Phone: Comment on [...] make patient management decisions.Fact sheet for providers: https://www.fda.gov/media/116794/downloadFact sheet for patients: https://www.fda.gov/media/889607/downloadThis test has received FDA Emergency Use Authorization (EUA) and has been verified by [facility] ([facility]). This test is only authorized for the duration of time that circumstances exist to justify the authorization of the emergency use of in vitro diagnostic tests for the detection of SARS-CoV-2 virus and/or diagnosis of COVID-19 infection under section 564(b)(1) of the Act, 21 U.S.C. 360bbb-3(b)(1), unless the authorization is terminated or revoked sooner. [facility] is certified under CLIA-88 as qualified to perform high complexity testing. Testing is performed in the [facility] laboratories located at [address] [place] [address]. ABDOMEN AP VIEWon 01-19-2022 ABDOMEN AP VIEW Patient Name: SERA WOO STUDY: ABDOMEN AP VIEW INDICATION: kidney stones N20.0: Kidney stones. COMPARISON: January 19 ACCESSION NUMBER(S): [id number] ORDERING CLINICIAN: ABI KARIMI FINDINGS: Postsurgical changes right upper quadrant. Bowel gas pattern unremarkable. No pathologic calcifications noted. IMPRESSION: Grossly unremarkable radiographs of the abdomen. Electronically signed by: FRANCIA HINKLE MD Normal [facility] [place] [place] BASIC METABOLIC PANELon 01-02 Anion gap [Moles/Vol] 12 mmol/L Normal 10 - 20 [facility] [place] [place] Comment on above: Performed By: #### B MP #### [address] [address] Calcium [Mass/Vol] 9.3 mg/dL Normal 8.6 - 10.3 [facility] [place] [place] Comment on above: Performed By: #### B MP #### [address] [address] Chloride [Moles/Vol] 104 mmol/L Normal 98 - 107 [facility] [place] [place] Comment on above: Performed By: #### B MP #### [address] [address] Creatinine [Mass/Vol] 0.61 mg/dL Normal 0.50 - 1.05 [facility] [place] [place] Comment on above: Performed By: #### B MP #### [address] [address] eGFR FEMALE >90 Normal >90 [facility] [place] [place] Comment on above: Result Comment: CALC ULATIONS OF ESTIMATED GFR ARE PERFORMED USING THE 2020 CKD-EPI STUDY REFIT EQUATION WITHOUT THE RACE VARIABLE FOR THE IDMS-TRACEABLE CREATININE METHODS. https://jasn.asnjournals.org/content//ASN.2762370943 Performed By: #### B MP #### [address] [address] Glucose [Mass/Vol] 96 mg/dL Normal 74 - 99 [facility] [place] [place] Comment on above: Performed By: #### B MP #### [address] [address] HCO3 (Bld) [Moles/Vol] 24 mmol/L Normal 21 - 32 [facility] [place] [place] Comment on above: Performed By: #### B MP #### [address] [address] Potassium [Moles/Vol] 4.2 mmol/L Normal 3.5 - 5.3 [facility] [place] [place] Comment on above: Performed By: #### B MP #### [address] [address] Sodium [Moles/Vol] 136 mmol/L Normal 136 - 145 [facility] [place] [place] Comment on above: Performed By: #### B MP #### [address] [address] Urea nitrogen [Mass/Vol] 11 mg/dL Normal 6 - 23 [facility] [place] [place] Comment on above: Performed By: #### B MP #### [address] [address] CBCon 01-19-2022 Erythrocyte distribution width (RBC) [Ratio] 14.5 % Normal 11.5 - 14.5 [facility] [place] [place] Comment on above: Performed By: #### C BC #### [address] [address] Hematocrit (Bld) [Volume fraction] 43.9 % Normal 36.0 - 46.0 [facility] [place] [place] Comment on above: Performed By: #### C BC #### [address] [address] Hemoglobin (Bld) [Mass/Vol] 13.8 g/dL Normal 12.0 - 16.0 [facility] [place] [place] Comment on above: Performed By: #### C BC #### [address] [address] MCHC (RBC) [Mass/Vol] 31.4 g/dL Low 32.0 - 36.0 [facility] [place] [place] Comment on above: Performed By: #### C BC #### [address] [address] MCV (RBC) [Entitic vol] 88 fL Normal 80 - 100 [facility] [place] [place] Comment on above: Performed By: #### C BC #### [address] [address] NUCLEATED RBC 0.0 /100 WBC Normal 0.0 - 0.0 [facility] [place] [place] Comment on above: Performed By: #### C BC #### [address] [address] Platelets (Bld) [#/Vol] 348 10*3/uL Normal 150 - 450 [facility] [place] [place] Comment on above: Performed By: #### C BC #### [address] [address] RBC 5.00 x10E12/L Normal 4.00 - 5.20 [facility] [place] [place] Comment on above: Performed By: #### C BC #### [address] [address] WBC (Bld) [#/Vol] 7.6 10*3/uL Normal 4.4 - 11.3 [facility] Comment on above: Performed By: #### C BC #### [address] [place] [address] COAGULATION SCREENon 022 aPTT Coag (Bld) [Time] 31 s Normal 26 - 39 [facility] [place] [place] Comment on above: Result Comment: Note new reference range as of 10/03/2021 at 10:00am. Performed By: #### C OAGS #### [address] [place] [address] PT Coag (PPP) [Time] 11.2 s Normal 9.8 - 13.4 [facility] [place] [place] Comment on above: Result Comment: Note new reference range as of 10/03/2021 at 10:00am. Performed By: #### C OAGS #### [address] [place] [address] PT, INR 1.0 Normal 0.9 - 1.1 [facility] [place] [place] Comment on above: Performed By: #### C OAGS #### [address] [place] [address] Cult, Urineon 01-19-2022 Bacteria identified Cx Nom (U) RL-Wkaxfhx-La Greetz 400 DO Work Phone: Laboratory - Chemistry and C hemistry - challengeon 01-19-2022 Anion gap [Moles/Vol] 12 mmol/L 10 - 20 WP-Klcswca-Ys Greetz 400 DO Work Phone: Calcium [Mass/Vol] 9.3 mg/dL 8.6 - 10.3 QQ-Cmyuyyd-Gi [employer] 400 DO Work Phone: Chloride [Moles/Vol] 104 mmol/L 98 - 107 EP-Idqadny-Ej AppwoRxmeMilk A Deal 400 DO Work Phone: CO2 [Moles/Vol] 24 mmol/L 21 - 32 MP-Urolog y-We [employer] 400 DO Work Phone: Creatinine [Mass/Vol] 0.61 mg/dL See Below JO-Ufqtchk-Gr stfranko SJW 400 DO Work Phone: Comment on above: Reference Range: 0.5 0 - 1.05 Glucose [Mass/Vol] 96 mg/dL 74 - 99 OI-Itdgsmx-Su stfranko SJW 400 DO Work Phone: Potassium [Moles/Vol] 4.2 mmol/L 3.5 - 5.3 KP-Kzfrqsr-Wv stfranko SJW 400 DO Work Phone: Sodium [Moles/Vol] 136 mmol/L 136 - 145 EA-Pphmken-Yl stfranko SJW 400 DO Work Phone: Urea nitrogen [Mass/Vol] 11 mg/dL 6 - 23 WI-Ntkqrah-Fs stfranko TAYLOR 400 DO Work Phone: Laboratory - Coagulationon 0 01-19-2022 aPTT Coag (PPP) [Time] 31 s 26 - 39 EG-Rnquobs-Oi rupinder MOTLEY 400 DO Work Phone: Comment on above: Note new reference r yonny as of 10/03/2021 at 10:00am. INR Coag (PPP) [Relative time] 1.0 {INR} 0.9 - 1.1 VX-Nwmuorb-Wv rupinder MOTLEY 400 DO Work Phone: PT Coag (PPP) [Time] 11.2 s 9.8 - 13.4 HC-Oghsnmg-Ua rupinder MOTLEY 400 DO Work Phone: Comment on above: Note new reference r oynny as of 10/03/2021 at 10:00am. Laboratory - Hematology and Cell countson 01-19-2022 Erythrocyte distribution width (RBC) [Ratio] 14.5 % See Below GP-Mpkybjp-Oz rupinder MOTLEYW 400 DO Work Phone: Comment on above: Reference Range: 11. 5 - 14.5 Hematocrit (Bld) [Volume fraction] 43.9 % See Below WZ-Rozjvdg-Rq rupinder MOTLEYW 400 DO Work Phone: Comment on above: Reference Range: 36. 0 - 46.0 Hemoglobin (Bld) [Mass/Vol] 13.8 g/dL See Below JJ-Xcwwusx-Sg stfranko MOTLEYW 400 DO Work Phone: Comment on above: Reference Range: 12. 0 - 16.0 MCHC (RBC) [Mass/Vol] 31.4 g/dL below low threshold See Below KC-Aldygsg-Tz stfranko MOTLEYW 400 DO Work Phone: Comment on above: Reference Range: 32. 0 - 36.0 MCV (RBC) [Entitic vol] 88 fL 80 - 100 GT-Uavjsan-Is stfranko MOTLEY 400 DO Work Phone: Platelets (Bld) [#/Vol] 348 10*3/uL 150 - 450 OF-Lqnfepg-Uq rupinder MOTLEY 400 DO Work Phone: RBC (Bld) [#/Vol] 5.00 {x10E12/L} See Below MP -Urology-We rupinder MOTLEYW 400 DO Work Phone: Comment on above: Reference Range: 4.0 0 - 5.20 WBC (Bld) [#/Vol] 7.6 10*3/uL 4.4 - 11.3 MP-Uro logy-We rupinder MOTLEY 400 DO Work Phone: No Panel Informationon 01-19 >90 >90 QW-Mbcnwhz-Cn rupinder MOTLEY 400 DO Work Phone: Comment on above: CALCULATIONS OF BONNY MATED GFR ARE PERFORMED USING THE 2020 CKD-EPI STUDY REFIT EQUATION WITHOUT THE RACE VARIABLE FOR THE IDMS-TRACEABLE CREATININE METHODS.https://jasn.asnjournals.org/content//ASN.20 21838286 0.0 {/100_WBC} 0.0 - 0.0 MP-Urology -We rupinder MOTLEY 400 DO Work Phone: Radiologyon 01-19-2022 XR Abdomen AP Normal MP-Urology- We rupinder SJW 400 DO Work Phone: URINE CULTURE,BACTERIALon URINE CULTURE,BACTERIAL PATIENT: SERA WOO LOCATION: [facility] BILL#: [id number] : 76 AGE: SEX: F ORDERED BY: ABI KARIMI SOURCE: URINE COLLECTED: 01/19/22 09:45 ANTIBIOTICS AT JAIRON.: RECEIVED : 01/19/22 18:45 SITE: Unspecified R E S U L T S URINE CULTURE,BACTERIAL FINAL 01/20/22 11:20 MIXED URETHRAL ELIUD. Normal [facility] [place] [place] Comment on above: Performed By: #### U RINC #### [facility] [address] [place] [address] CORONAVIRUS 2019, SCREEN ASY MPTOMATICon 01-15-2022 DATE OF SYMPTOM ONSET [YYYYMMDD]? Canceled Normal [facility] Comment on above: Order Comment: TEST CORONAVIRUS 2018, SCREEN ASYMPTOMATIC WAS CANCELLED, 01/15/2022 11:50 Updated order placed for STAT test. Performed By: #### C OVSC #### [facility] [address] [place] [address] SARS-CoV-2 (COVID-19) RNA MEKA+probe Ql (Unsp spec) Canceled Normal [facility] Comment on above: Order Comment: TEST CORONAVIRUS [...] patient management decisions. Fact sheet for providers: https://www.fda.gov/media/537847/download Fact sheet for patients: https://www.fda.gov/media/535480/download This test has received FDA Emergency Use Authorization (EUA) and has been verified by [facility] ([facility]). This test is only authorized for the duration of time that circumstances exist to justify the authorization of the emergency use of in vitro diagnostic tests for the detection of SARS-CoV-2 virus and/or diagnosis of COVID-19 infection under section 564(b)(1) of the Act, 21 U.S.C. 360bbb-3(b)(1), unless the authorization is terminated or revoked sooner. [facility] is certified under CLIA-88 as qualified to perform high complexity testing. Testing is performed in the [facility] laboratories located at [address] [place] [address]. Performed By: #### C OVSC #### [address] [place] [address] DATE OF SYMPTOM ONSET [YYYYMMDD]? Canceled Normal [facility] Comment on above: Order Comment: TEST CORONAVIRUS 2019, SCREEN ASYMPTOMATIC WAS CANCELLED, 01/15/2022 11:49 Updated order placed for STAT test. Performed By: #### C OVSC #### [address] [place] [address] SARS-CoV-2 (COVID-19) RNA MEKA+probe Ql (Unsp spec) Canceled Normal [facility] Comment on above: Order Comment: TEST CORONAVIRUS [...] patient management decisions. Fact sheet for providers: https://www.fda.gov/media/490907/download Fact sheet for patients: https://www.fda.gov/media/120844/download This test has received FDA Emergency Use Authorization (EUA) and has been verified by [facility] ([facility]). This test is only authorized for the duration of time that circumstances exist to justify the authorization of the emergency use of in vitro diagnostic tests for the detection of SARS-CoV-2 virus and/or diagnosis of COVID-19 infection under section 564(b)(1) of the Act, 21 U.S.C. 360bbb-3(b)(1), unless the authorization is terminated or revoked sooner. [facility] is certified under CLIA-88 as qualified to perform high complexity testing. Testing is performed in the [facility] laboratories located at [address] [place] [address]. Performed By: #### C OVSC #### [address] [place] [address] Lab Specimen Source Nasal, Nasopharyngeal Normal [facility] Comment on above: Order Comment: TEST CORONAVIRUS 2018, SCREEN ASYMPTOMATIC WAS CANCELLED, 01/15/2022 11:49 Updated order placed for STAT test. Performed By: #### C OVSC #### [address] [place] [address] CORONAVIRUS 2018, SCREEN ASY MPTOMATICon 01-12-2022 Lab Specimen Source Nasal, Nasopharyngeal Normal [facility] Comment on above: Order Comment: TEST CORONAVIRUS 2018, SCREEN ASYMPTOMATIC WAS CANCELLED, 01/15/2022 11:50 Updated order placed for STAT test. Performed By: #### C OVSC #### [address] [place] [address] CORONAVIRUS 2019, SCREEN ASY MPTOMATICon 01-08-2022 Lab Specimen Source Nasal, Nasopharyngeal Normal [facility] Comment on above: Order Comment: TEST CORONAVIRUS 2018, SCREEN ASYMPTOMATIC WAS CANCELLED, 01/15/2022 11:50 Updated order placed for STAT test. Performed By: #### C OVSC #### [address] [place] [address] Chart Updateon 01-03-2022 Chart Update Chart Update CT images from [facility] received Right upper pole non-obstructing stone. Too small to determine HU Skin to stone distance 13cm. Signatures Electronically signed by : Abi Karimi MD; Jan 03 2022 8:30PM EST (Author) Normal [facility] Office Visit (Urology)on Follow-up visit Diagnoses/Problems Assessed Kidney stones (592.0) (N20.0) Orders Kidney stones Xray Abdomen AP View; Status:Hold For - Scheduling,Retrospective Authorization; Requested for:11Jan2022; Perform:[facility]iology Services Imaging; Due:11Apr2022; Last Updated By:Katie Scott; 12/28/2021 3:25:30 PM;Ordered; For:Kidney stones; Ordered By:Abi Karimi; Radiologist to Determine Optimal Study : Y What are the patient's signs and symptoms? : kidney stones Provider Impressions 41-year-old female see me regarding kidney stones Kindly referred by Cathleen Sanz [facility]: Obesity, BMI greater than 50, depression, hypertension Saw Cathleen Sanz 12/18. Right renal colic beginning end of November, subsided to more achy tolerable pain. No longer symptomatic. First stone episode. CTU from [facility] 12/11/2021: Report only available. 5 [...] telehealth visit. kidney stones History of Present Vyiqoop37-sebc-thk female see me regarding kidney stones Kindly referred by Cathleen Sanz [facility]: Obesity, BMI greater than 50, depression, hypertension Saw Cathleen Sanz 12/18. Right renal colic beginning end of November, subsided to more achy tolerable pain. No longer symptomatic. First stone episode. CTU from [facility] 12/11/2021: Report only available. 5 [...] (more content not included)... Normal [facility] CORONAVIRUS 2019, SCREEN ASY MPTOMATICon 12-20-2021 Lab Specimen Source Nasal, Nasopharyngeal Normal [facility] Comment on above: Order Comment: TEST CORONAVIRUS 2018, SCREEN ASYMPTOMATIC WAS CANCELLED, 01/15/2022 11:50 Updated order placed for STAT test. Performed By: #### C OVSC #### [facility] [address] [place] [address] IO UA (automated w/o microsc opy)on 12-18-2021 Protein (U) [Mass/Vol] Negative ZZ-Zffpuqx-Wg [place] [address] Work Phone: IO UA (automated w/o microscopy) (+)small - 15 AH-Sbathbc-Ez [place] [address] Work Phone: IO UA (automated w/o microscopy) Negative LV-Rpgtdpb-[place] [address] Work Phone: IO UA (automated w/o microscopy) Normal (0.2-1.0 mg/dl) MG-Urolog y-We [place] [address] Work Phone: IO UA (automated w/o microscopy) 8.0 1 MJ-Ilkkcqy-Lv [place] [address] Work Phone: IO UA (automated w/o microscopy) Trace WO-Jepojsk-[place] [address] Work Phone: IO UA (automated w/o microscopy) 1.025 1 QU-Pqdloel-[place] [address] Work Phone: IO UA (automated w/o microscopy) Clear SB-Fozwozj-[place] [address] Work Phone: IO UA (automated w/o microscopy) Yellow JR-Pamhdcx-[place] [address] Work Phone: IO Ultrasound, measurement p ost-void resid urine and/or bl cap; no imagon 12-18-2021 IO Ultrasound, measurement post-void resid urine and/or bl cap; no imag 5 mL NQ-Batfupn[place] [address] Work Phone: Office Visit (Urology)on Follow-up visit Diagnoses/Problems Assessed Kidney stones (592.0) (N20.0) Renal colic (788.0) (N23) Right flank pain (789.09) (R10.9) Orders Hematuria IO Ultrasound, measurement post-void resid urine and/or bl cap; no imag; Status:Complete; Done: 18Dec2021 08:17AM Performed:In Office; Due:[id number];Ordered; For:Hematuria; Ordered By:Arleth Sanz; Kidney stones IO UA (automated w/o microscopy); Status:Complete; Done: 18Dec2021 08:22AM Performed:In Office; Due:[id number];Ordered; For:Kidney stones; Ordered By:Arleth Sanz; Renal colic, Right flank pain Start: Ketorolac Tromethamine 10 MG Oral Tablet; TAKE 1 TABLET EVERY 6 HOURS WITH FOOD Rx By: Arleth Sanz; Dispense: 5 Days ; #:20 Tablet; Refill: 0;For: Renal colic, Right flank pain; NILSON = N; Verified Transmission to [facility] [address]; Last Updated By: System, [employer]; 12/18/2021 8:45:56 AM Patient Discussion/Summary 41-year-old female [...] Chief Complaint Kidney Stones History of Present Skashpg42a female who presents for evaluation of nephrolithiasis, [...] (462) (J02. (more content not included)... Normal [facility] Tobacco Screening.on 022 Fall risk assessment a) No falls within the last year SZ-Upfhwnf-Jy [place] [address] Work Phone: Tobacco use status CPHS b) No DG-Cnxmoae-Iz [place] [address] Work Phone: Cult, Urineon 12-11-2021 Bacteria identified Cx Nom (U) [facility] Work Phone: IO UA (automated w/o microsc opy)on 12-11-2021 Protein (U) [Mass/Vol] Negative Normal [facility] Work Phone: IO UA (automated w/o microscopy) (+)small - 15 Abnormal [facility] Work Phone: IO UA (automated w/o microscopy) Negative Normal [facility] Work Phone: IO UA (automated w/o microscopy) Normal (0.2-1.0 mg/dl) Normal [facility] Work Phone: IO UA (automated w/o microscopy) 6.0 1 [facility] Work Phone: IO UA (automated w/o microscopy) (++)moderate - 40 Abnormal [facility] Work Phone: IO UA (automated w/o microscopy) 1.020 1 [facility] Work Phone: IO UA (automated w/o microscopy) Hazy [facility] Work Phone: IO UA (automated w/o microscopy) Soila [facility] Work Phone: Office Visit ([facility])on 12-11-2021 Follow-up visit Diagnoses/Problems Right flank pain (789.09) (R10.9) Hematuria (599.70) (R31.9) Renal colic (788.0) (N23) Morbid obesity with BMI of 50.0-59.9, adult (278.01,V85.43) (E66.01,Z68.43) Orders Hematuria Start: Ciprofloxacin HCl - 500 MG Oral Tablet; one by mouth twice a day for 7 days Cult, Urine; Status:Resulted - Requires Verification,Retrospective Authorization; Done: 11Dec2021 04:31PM Start: Ibuprofen 800 MG Oral Tablet; [...] By signing my name below, I, Cynthia LoftonShaunna, attest that this documentation has been prepared under the direction and in the presence of Dr. Hetal Alonso. Cynthia Rolly 12/11/21 Chief Complaint possible kidney stone. Adult [...] (S90.859A) Hip injury, left, initial encounter (959.6) (S79.912A) History of ankle surgery (V45.89) (Z98.890) Pharyngitis, acute (462) (J02.9) Preoperative cl (more content not included)... Normal [facility] Radiologyon 12-11-2021 CT Abdomen and Pelvis WO contrast Normal -[facility]-Juan mohamud Work Phone: URINE CULTURE,BACTERIALon URINE CULTURE,BACTERIAL PATIENT: SERA WOO [place] [facility] [place] [id number] : [birth year] AGE: SEX: F ORDERED BY: HETAL ALONSO SOURCE: URINE COLLECTED: 12/11/21 16:31 ANTIBIOTICS AT JAIRON.: RECEIVED : 12/12/21 00:54 SITE: Clean Catch/Voided R E S U L T S URINE CULTURE,BACTERIAL FINAL 12/12/21 17:23 NO SIGNIFICANT GROWTH. Normal [facility] Comment on above: Performed By: #### U [facility] #### [facility] [address] [place] [address] XR foot RT min 3V*on 021 XR foot RT min 3V* [facility] Main [place] [address] [place] [address] XRay Report Signed Patient: Sera Woo MR#: [id number] 73 : 1980 Acct:[id number] Age/Sex: 40 / F ADM Date: 04/04/21 [place] [facility] [place] Type[place] [facility] Attending Dr: Francia Collazo DPM, MS Ordering Provider: Francia Collazo DPM, MS Date of Service: 04/04/21 XR/XR ankle RT min 3V*: M25.571 ([id number]) XR/XR foot RT min 3V*: M79.671 Copies [...] Saenz Jr., M.D.04/04/2021 2:40 PM Dictation Location: [facility] Transcribed By: [facility] 04/04/21 1440 Dictated By: Mynor Saenz Jr, MD 04/04/21 1414 Signed By: 04/04/21 1440 [facility] XR ankle RT min 3V*on 2020 XR ankle RT min 3V* [place] [id number] XRay Report Signed Patient: Sera Woo MR#: [id number] 73 : 1980 Acct:[id number] Age/Sex: 40 / F ADM Date: 03/21/21 [place] [facility] [place]: Type: [facility] Attending Dr: Francia Collazo DPM, MS [...] Chelsey Bobo M.D.03/21/2021 11:41 AM Dictation Location: [facility]11 Transcribed By: [facility] 03/21/21 1141 Dictated By: Chelsey Bobo MD 03/21/21 1139 Signed By: 03/21/21 1141 [facility] XR ankle RT min 3V*on 2020 XR ankle RT min 3V* [address] [address] XRay Report Signed Patient: Sera Woo MR#: [id number] [birth year] : 1980 Acct:[id number] Age/Sex: 40 / F ADM Date: 02/21/21 [place] [facility] [place]: Type: [facility] Attending Dr: Francia Collazo DPM, MS Ordering Provider: Francia Collazo DPM, MS Date of Service: 02/21/21 XR/XR ankle RT min 3V*: M25.571 ([id number]) XR/XR foot RT min 3V*: M79.671 Copies to: Francia Collazo DPM, MS CLINICAL DATA: Ankle stiffness [...] Chelsey Bobo M.D.02/21/2021 12:11 PM Dictation Location: [place] [address] Transcribed By: [facility] 02/21/21 1211 Dictated By: Chelsey Bobo MD 02/21/21 1207 Signed By: 02/21/21 1211 [facility] Initial Visit (Orthopaedic S urgery)on [...] your surgery. Please call Pamela Dias at [phone] to schedule your surgery and if you have any further questions. Chief Complaint Pt here for right ankle pain. /tc History of Present [id number] woman who presents today for evaluation of [...] at outside facility on 09/27/2020 and her track walker surgeon placed her on nonweightbearing restrictions with boot and 2 crutches. 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 She takes Coarsegold nightly and Advil throughout the day but still states that her pain remains quite high. Past medical history of morbid obesity Past surgical history of open reduction of the talus right foot 04/12/[address] [facility] Dr. Duran Family history noncontributory to presenting problem Social history non-smoker Medications include control pill, Advil and Coarsegold REVIEW OF SYSTEMS Constitutional: no unplanned weight [...] or Percocet. She does do well with Coarsegold and Dilaudid. We discussed with her that [...] voiced understanding and agreement. Note dictated with Mr Ban[employer] funeral director software, completed without full type editing to avoid delay. Vitals Vital Signs Recorded: [id number] 05:30PM Height5 ft 5 in Fxohdz769 lb BMI Iguwsfiies79.93 BSA Calculated2.31 Signatures Electronically signed by : Ebony Shah MD; Oct 10 2020 5:36PM EST (Author) [facility] Vital Signs Date Time Vital Sign Value Performing Clinician Facility 12-27-2023 11:24-0500 Body height 167.6 cm Hetal Alonso MD Work Phone: [facility] 12-27-2023 11:24-0500 Body mass index (BMI) [Ratio] 53.75 kg/m2 Hetal Alonso MD Work Phone: [facility] 12-27-2023 11:24-0500 Body temperature 98.01 [degF] Hetal Alonso MD Work Phone: [facility] 12-27-2023 11:24-0500 Body weight 151.05 kg Hetal Alonso MD Work Phone: [facility] 12-27-2023 11:24-0500 Diastolic blood pressure 80 mm[Hg] Hetal Alonso MD Work Phone: [phone] [place] [address] 12-27-2023 11:24-0500 Heart rate 80 /min Hetal Alonso MD Work Phone: 7(536)[phone] [place] [address] 12-27-2023 11:24-0500 Systolic blood pressure 138 mm[Hg] Hetal Alonso MD Work Phone: 1(425)[phone] [place] [address] 10-21-2023 13:20-0500 Diastolic blood pressure 80 mm[Hg] Hetal Alonso MD Work Phone: 3(669)[phone] [address] 10-21-2023 13:20-0500 Systolic blood pressure 130 mm[Hg] Hetal Alonso MD Work Phone: 6(955)[phone] [place] [address] 10-21-2023 13:05-0500 Body height 167.6 cm Hetal Alonso MD Work Phone: 8(726)[phone] [place] [address] 10-21-2023 13:05-0500 Body mass index (BMI) [Ratio] 53.75 kg/m2 Hetal Alonso MD Work Phone: [facility] 10-21-2023 13:05-0500 Body temperature 98.2 [degF] Hetal Alonso MD Work Phone: [phone] [place] [address] 10-21-2023 13:05-0500 Body weight 151.05 kg Hetal Alonso MD Work Phone: [facility] 10-21-2023 13:05-0500 Heart rate 92 /min Hteal Alonso MD Work Phone: [facility] 10-21-2023 13:05-0500 SaO2% (BldA) [Mass fraction] 96 % Hetal Alonso MD Work Phone: [facility] 06-28-2023 11:54-0400 Diastolic blood pressure 80 mm[Hg] Hetal Alonso MD Work Phone: [facility] 06-28-2023 11:54-0400 Systolic blood pressure 130 mm[Hg] Hetal Alonso MD Work Phone: [facility] 06-28-2023 11:08-0400 Body mass index (BMI) [Ratio] 51.81 kg/m2 Hetal Alonso MD Work Phone: [facility] 06-28-2023 11:08-0400 Body temperature 97.81 [degF] Hetal Alonso MD Work Phone: [facility] 06-28-2023 11:08-0400 Body weight 145.6 kg Hetal Alonso MD Work Phone: [facility] 06-28-2023 11:08-0400 Heart rate 94 /min Hetal Alonso MD Work Phone: [facility] 04-29-2023 10:45-0400 Body height 165.1 cm Evan Feliciano Other [facility] Other 04-29-2023 10:45-0400 Diastolic blood pressure 80 mm[Hg] Evan Feliciano Other [facility] Other 04-29-2023 10:45-0400 SaO2% (BldA) [Mass fraction] 98 % Evan Feliciano Other [facility] Other 04-29-2023 10:45-0400 Systolic blood pressure 140 mm[Hg] Evan Feliciano Other [facility] Other 04-05-2023 10:00-0400 Body weight 140.62 kg Evan Feliciano Other [facility] Other 04-05-2023 10:00-0400 SaO2% (BldA) [Mass fraction] 98 % Evan Feliciano Other [facility] Other 09-11-2022 10:28-0500 Body height 167.64 cm Hetal Alonso Work Phone: [facility] Work Phone: 09-11-2022 10:28-0500 Body mass index (BMI) [Ratio] 43.74 kg/m2 Hetal Recio Spiration Work Phone: [facility] Work Phone: 09-11-2022 10:28-0500 Body surface area Derived from formula 2.28 m2 Hetal Recio Alonso Work Phone: [facility] Work Phone: 09-11-2022 10:28-0500 Body temperature 96.9 [degF] Hetal Recio Alonso Work Phone: [facility] Work Phone: 09-11-2022 10:28-0500 Body weight 122.93 kg Hetal Alonso Work Phone: [facility] Work Phone: 09-11-2022 10:28-0500 Diastolic blood pressure 76 mm[Hg] Hetal Recio Alonso Work Phone: [facility] Work Phone: 09-11-2022 10:28-0500 Heart rate 79 /min Hetal Recio Spiration Work Phone: [facility] Work Phone: 09-11-2022 10:28-0500 SaO2% (BldA) [Mass fraction] 100 % Hetal Recio Spiration Work Phone: [facility] Work Phone: 09-11-2022 10:28-0500 Systolic blood pressure 124 mm[Hg] Hetal Alonso Work Phone: [facility] Work Phone: 08-20-2022 09:28-0400 Body height 167.64 cm Hetal Alonso Work Phone: [facility] Work Phone: 08-20-2022 09:28-0400 Body mass index (BMI) [Ratio] 43.9 kg/m2 Hetal Alonso Work Phone: [facility] Work Phone: 08-20-2022 09:28-0400 Body surface area Derived from formula 2.28 m2 Hetal Alonso Work Phone: [facility] Work Phone: 08-20-2022 09:28-0400 Body temperature 96.9 [degF] Hetal Alonso Work Phone: [facility] Work Phone: 08-20-2022 09:28-0400 Body weight 123.38 kg Hetal Alonso Work Phone: [facility] Work Phone: 08-20-2022 09:28-0400 Diastolic blood pressure 72 mm[Hg] Hetal Alonso Work Phone: [facility] Work Phone: 08-20-2022 09:28-0400 Heart rate 78 /min Hetal Alonso Work Phone: [facility] Work Phone: 08-20-2022 09:28-0400 SaO2% (BldA) [Mass fraction] 99 % Hetal Alonso Work Phone: [facility] Work Phone: 08-20-2022 09:28-0400 Systolic blood pressure 124 mm[Hg] Hetal Alonso Work Phone: [facility] Work Phone: 07-18-2022 09:42-0400 Body height 167.64 cm Hetal Alonso Work Phone: [facility] Work Phone: 07-18-2022 09:42-0400 Body mass index (BMI) [Ratio] 44.87 kg/m2 Hetal Alonso Work Phone: [facility] Work Phone: 07-18-2022 09:42-0400 Body surface area Derived from formula 2.3 m2 Hetal Alonso Work Phone: [facility] Work Phone: 07-18-2022 09:42-0400 Body weight 126.1 kg Hetal Alonso Work Phone: [facility] Work Phone: 07-18-2022 09:42-0400 Diastolic blood pressure 72 mm[Hg] Hetal Alonso Work Phone: [facility] Work Phone: 07-18-2022 09:42-0400 Heart rate 97 /min Hetal Alonso Work Phone: [facility] Work Phone: 07-18-2022 09:42-0400 SaO2% (BldA) [Mass fraction] 99 % Hetal Alonso Work Phone: [facility] Work Phone: 07-18-2022 09:42-0400 Systolic blood pressure 118 mm[Hg] Hetal Alonso Work Phone: [facility] Work Phone: 12-18-2021 08:10-0500 Body height 167.64 cm Hetal Alonso Work Phone: VR[facility]Veaashe-Xvvhytwu [facility] [id number] Work Phone: 12-18-2021 08:10-0500 Body mass index (BMI) [Ratio] 51.65 kg/m2 Hetal Alonso Work Phone: SK-Jybbjjf-Gxwdmdaa [facility] [id number] Work Phone: 12-18-2021 08:10-0500 Body surface area Derived from formula 2.44 m2 Hetal Alonso Work Phone: GL-Igyfxss-Hhtwenny [facility] [address] Work Phone: 12-18-2021 08:10-0500 Body temperature 96.9 [degF] Hetal Alonso Work Phone: LO-Whqltvb-Jkaazrdz [facility] [address] Work Phone: 12-18-2021 08:10-0500 Body weight 145.15 kg Hetal Alonso Work Phone: CV-Xrbtxzh-Ohqgpaur [facility] [address] Work Phone: 12-18-2021 08:10-0500 Diastolic blood pressure 99 mm[Hg] Hetal Alonso Work Phone: RI-Sxyncqw-Hafwmaib [facility] [id number] Work Phone: 12-18-2021 08:10-0500 Heart rate 106 /min Hetal Alonso Work Phone: ZQ-Kffcwnz-Upgsnvzr [facility] [id number] Work Phone: 12-18-2021 08:10-0500 Systolic blood pressure 155 mm[Hg] Hetal Alonso Work Phone: AS-Uacyweh-Fkinbskq [facility] [address] Work Phone: 12-11-2021 12:24-0500 Body height 167.64 cm Hetal Alonso Work Phone: [facility] Work Phone: 12-11-2021 12:24-0500 Body mass index (BMI) [Ratio] 51.65 kg/m2 Hetal Alonso Work Phone: [facility] Work Phone: 12-11-2021 12:24-0500 Body surface area Derived from formula 2.44 m2 Hetal Alonso Work Phone: [facility] Work Phone: 12-11-2021 12:24-0500 Body temperature 98.3 [degF] Hetal Alonso Work Phone: [facility] Work Phone: 12-11-2021 12:24-0500 Body weight 145.15 kg Hetal Alonso Work Phone: [facility] Work Phone: 12-11-2021 12:24-0500 Diastolic blood pressure 80 mm[Hg] Hetal Alonso Work Phone: [facility] Work Phone: 12-11-2021 12:24-0500 Heart rate 80 /min Hetal Alonso Work Phone: [facility] Work Phone: 12-11-2021 12:24-0500 Systolic blood pressure 120 mm[Hg] Hetal Alonso Work Phone: [facility] Work Phone: 08-11-2021 15:04-0400 Body height 167.64 cm Hetal Alonso Work Phone: [facility] Work Phone: 08-11-2021 15:04-0400 Body mass index (BMI) [Ratio] 51.65 kg/m2 Hetal Alonso Work Phone: [facility] Work Phone: 08-11-2021 15:04-0400 Body surface area Derived from formula 2.44 m2 Hetal Alonso Work Phone: [facility] Work Phone: 08-11-2021 15:04-0400 Body temperature 98.8 [degF] Hetal Alonso Work Phone: [facility] Work Phone: 08-11-2021 15:04-0400 Body weight 145.15 kg Hetal Alonso Work Phone: [facility] Work Phone: 08-11-2021 15:04-0400 Diastolic blood pressure 78 mm[Hg] Hetal Alonso Work Phone: [facility] Work Phone: 08-11-2021 15:04-0400 Heart rate 108 /min Hetal Alonso Work Phone: [facility] Work Phone: 08-11-2021 15:04-0400 Heart rate 80 /min Hetaljean carlos Alonso Work Phone: [facility] Work Phone: 08-11-2021 15:04-0400 Systolic blood pressure 142 mm[Hg] Hetal Alonso Work Phone: [facility] Work Phone: 08-11-2021 15:04-0400 Systolic blood pressure 130 mm[Hg] Hetal Hemal Alonso Work Phone: [facility] Work Phone: 03-24-2021 09:41-0400 Body mass index (BMI) [Ratio] 52.13 kg/m2 Hetal Alonso Work Phone: [facility] Work Phone: 03-24-2021 09:41-0400 Body surface area Derived from formula 2.45 m2 Hetal Alonso Work Phone: [facility] Work Phone: 03-24-2021 09:41-0400 Body temperature 97.7 [degF] Hetal Alonso Work Phone: [facility] Work Phone: 03-24-2021 09:41-0400 Body weight 146.51 kg Hetal Alonso Work Phone: [facility] Work Phone: 03-24-2021 09:41-0400 Diastolic blood pressure 86 mm[Hg] Hetal Alonso Work Phone: [facility] Work Phone: 03-24-2021 09:41-0400 Heart rate 64 /min Hetal Alonso Work Phone: [facility] Work Phone: 03-24-2021 09:41-0400 Systolic blood pressure 152 mm[Hg] Hetal Alonso Work Phone: [facility] Work Phone: Encounters Encounter Date Encounter Type Care Provider Facility Start: 12-27-2023 End: 12-27-2023 ambulatory HETAL ALONSO [facility] Ambulatory Start: 12-27-2023 End: 12-27-2023 Office outpatient visit 25 minutes Hetal Alonso MD Work Phone: [facility] Comment on above: Adjustment disorder with mixed anxiety and depressed mood (Primary Dx); Weakness of both lower extremities; Bilateral hip pain Start: 10-21-2023 End: 10-22-2023 ambulatory HETAL ALONSO MD Facility:[id number] Start: 10-21-2023 End: 10-21-2023 ambulatory [facility] Ambulatory Start: 10-21-2023 End: 10-21-2023 Office outpatient visit 15 minutes Hetal Alonso MD Work Phone: [facility] Comment on above: Bronchitis (Primary Dx) Start: 07-18-2023 End: 07-18-2023 ambulatory DEWAYNE GARRISON MD Facility:[facility] Start: 06-28-2023 End: 06-28-2023 ambulatory [facility]ulatory Start: 06-28-2023 End: 06-28-2023 Office outpatient visit 15 minutes Hetal Alonso MD Work Phone: [facility] Comment on above: 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); Benign essential hypertension; Morbid obesity with body mass index (BMI) of 50.0 to 59.9 in adult (CMS/HCC) Start: 05-30-2023 End: 05-30-2023 ambulatory Evan Feliciano Other [facility] Other Start: 05-30-2023 Telephone encounter Evan Feliciano [facility] Start: 05-16-2023 (PROC) PROCEDURE Evan Louis [facility] Start: 05-16-2023 End: 05-16-2023 ambulatory Evan Feliciano Other [facility] Other Start: 05-14-2023 End: 05-15-2023 ambulatory HETAL BANNER Facility:[facility] Start: 05-09-2023 End: 07-06-2023 ambulatory [facility] Facility:[id number] Start: 05-01-2023 End: 05-01-2023 ambulatory Evan Braden Other [facility] Other Start: 05-01-2023 Telephone encounter Evan Feliciano [facility] Start: 04-29-2023 End: 04-29-2023 ambulatory Evan Feliciano Other [facility] Other Start: 04-29-2023 Office outpatient vi sit 25 minutes Evan Feliciano [facility] Start: 04-15-2023 End: 04-16-2023 ambulatory HETAL ALONSO Facility:[id number] Start: 04-05-2023 End: 04-05-2023 ambulatory Evan Feliciano Other [facility] Other Start: 04-05-2023 Office consultation new/estab patient 60 min Evan Feliciano [facility] [place] Start: 04-05-2023 Telephone encounter Evan Feliciano [facility] Start: 03-07-2023 ambulatory HETAL ALONSO Facility: [id number] Start: 02-25-2023 ambulatory HETAL ALONSO Facility: [facility] Start: 02-20-2023 End: 02-21-2023 ambulatory FRANCIA COLLAZO Facility:[facility] Start: 02-06-2023 End: 05-04-2023 ambulatory HETAL ALONSO Facility:[id number] Start: 01-10-2023 End: 01-10-2023 ambulatory FRANCIA COLLAZO Facility:[facility] Start: 01-08-2023 Encounter for other preprocedural examination FRANCIA COLLAZO [facility] Start: 01-08-2023 Encounter for preprocedural cardiovascular examination FRANCIA COLLAZO [facility] Start: 01-08-2023 Encounter for preprocedural laboratory examination FRANCIA COLLAZO [facility] Start: 01-08-2023 End: 01-09-2023 ambulatory HETAL ALONSO Facility:[id number] Start: 01-07-2023 End: 01-08-2023 ambulatory FRANCIA COLLAZO Facility:[facility] Start: 01-07-2023 End: 01-08-2023 Encounter for preprocedural laboratory examination FRANCIA COLLAZO Facility:[facility] Start: 12-19-2022 End: 12-20-2022 ambulatory HETAL ALONSO Facility:[facility] Start: 11-21-2022 End: 11-22-2022 ambulatory FRANCIA COLLAZO Facility:[facility] Start: 11-14-2022 End: 11-15-2022 ambulatory FRANCIA COLLAZO Facility:[facility] Start: 2022 End: 02-02-2023 ambulatory HETAL ALONSO Facility:[id number] Start: 09-11-2022 Current tobacco non- user cad cap copd pv dm Hetal Alonso Work Phone: [facility] Work Phone: Start: 09-11-[address] HETAL ALONSO Facility:[id number] Start: 08-20-[address] HETAL ALONSO Facility:[id number] Start: 08-20-2022 Current tobacco non- user cad cap copd pv dm Hetal Alonso Work Phone: [facility] Work Phone: Start: 07-25-2022 End: 07-26-2022 ambulatory FRANCIA Anderson [facility] Facility:[facility] Start: 07-18-2022 Current tobacco non- user cad cap copd pv dm Hetal Alonso Work Phone: [facility] Work Phone: Start: 07-18-[address] HETAL ALONSO Facility:[id number] Start: 04-25-2022 End: 04-26-2022 ambulatory FRANCIA Anderson [facility] Facility:[facility]1 Start: 03-23-2022 Rx Renewal Hetal turner Work Phone: [facility] Work Phone: Start: 03-14-2022 ambulatory FRANCIA Anderson [facility] Faci lity:H1 Start: 01-23-2022 Chart Update Hetal turner Work Phone: WO-Lldcnle-Wemcbftb [facility] 400 DO Work Phone: Start: 01-03-2022 Chart Update Hetal Ferrari s Work Phone: GM-Dacnyqd-Sjkojcaf [facility] 400 DO Work Phone: Start: 12-28-[address] HETAL ALONSO Facility:[id number] Start: 12-20-2021 AUDIT Hetal turner Work Phone: SN-Pvtpkhj-Msdfknoq [facility]JW 400 DO Work Phone: Start: 12-18-2021 NPV, Provider: Arleth Sanz, Status: Pen, Time: 8:00 AM Hetal Alonso Work Phone: [facility] Work Phone: Start: 12-18-2021 Office outpatient ne w 45 minutes Hetal Alonso Work Phone: SG-Icjyvrz-Satsvlev [facility] [id number] Work Phone: Start: 12-18-[address] HETAL ALONSO Facility:[id number] Start: 12-11-2021 Current tobacco non- user cad cap copd pv dm Hetal Alonso Work Phone: [facility] Work Phone: Start: 12-11-[address] HETAL ALONSO Facility:[id number] Start: 08-11-2021 Current tobacco non- user cad cap copd pv dm Hetal Alonso Work Phone: [facility] Work Phone: Start: 08-11-2021 Patient encounter procedure Hetal Alonso Work Phone: [facility] Work Phone: Start: 03-24-2021 Current tobacco non- user cad cap copd pv Hetal Alonso Work Phone: [facility] Work Phone: Preoperative state Hetal Wagner rs Work Phone: [facility] Work Phone: Procedures Date Procedure Procedure Detail Performing Clinician Ankle Surgery Hetal turner Work Phone: Comment on above: talus; Cholecystectomy Hetal ho Work Phone: Plan of Treatment Date Care Activity Detail Author Start: 2028 Zoster Vaccines (1 o f 2) Zoster Vaccines (1 of 2) [facility] Start: 10-21-2023 End: 10-21-2024 XR Chest 2 Views XR chest 2 views Imaging Routine Bronchitis Expected: 10/21/2023, Expires: 10/21/2024 [facility] Service Area Work Phone: Comment on above: Expected: 10/21/2023 , Expires: 10/21/2024 Start: 07-05-2023 COVID-19 Vaccine () COVID-19 Vaccine () [facility] Start: 07-05-2023 Influenza vaccination Influenza Vacc ine (#1) [facility] Start: 08-20-2022 [facility], Provider: Hetal Alonso, Status: Pen, Time: 8:45 AM [facility], Provider: Hetal Alonso, Status: Pen, Time: 8:45 AM -[facility] Work Phone: Start: 01-16-2022 [facility], Provider: Abi Karimi, Status: Pen, Time: 10:30 AM [facility], Provider: Abi Karimi, Status: Pen, Time: 10:30 AM [facility] 400 DO Work Phone: Start: 12-28-2021 [facility], Provider : Abi Karimi, Status: Pen, Time: 2:30 PM [facility], Provider: Abi Karimi, Status: Pen, Time: 2:30 PM LM-Ccnmmsu-Rltnhtyi [facility] [id number] Work Phone: Start: 10-31-2021 COVID-19 Vaccine (4 - Pfizer series) COVID-19 Vaccine (4 - Pfizer series) [facility] Start: 04-21-2021 [facility], Provider: Hetal Alonso, Status: Pen, Time: 2:30 PM [facility], Provider: Hetal Alonso, Status: Pen, Time: 2:30 PM [facility] Work Phone: Start: 2018 Screening for malign ant neoplasm of breast Mammogram [facility] Start: 2000 DTaP/Tdap/Td Vaccine s (1 - Tdap) DTaP/Tdap/Td Vaccines (1 - Tdap) [facility] Start: 1999 Screening for malign ant neoplasm of cervix [facility] Start: 1996 Diabetes mellitus screening Diabetes Screening [facility] Start: 1996 Hepatitis C screening Hepatitis C Sc [facility] Start: 1979 MMR Vaccines (1 of 1 - Standard series) MMR Vaccines (1 of 1 - Standard series) [facility] Start: 1978 Hepatitis B Vaccines (1 of 3 - 3-dose series) Hepatitis B Vaccines (1 of 3 - 3-dose series) [facility] Start: 1978 HIV screening HIV Screening [facility] Start: 1978 Lipid panel Lipid Panel [facility] Start: 1978 Screening for malign ant neoplasm of colon [facility] Start: 1978 Yearly Adult Physical Yearly Adult P hysical [facility] Immunizations Immunization Date Immunization Notes Care Provider Fa cility 09-05-2021 Pfizer-BioNTech COVI D-19 Vacc 30 MCG/0.3ML Intramuscular Suspension Hetal Alonso Work Phone: [facility] Work Phone: 02-12-2021 Pfizer-BioNTech COVI D-19 Vacc 30 MCG/0.3ML Intramuscular Suspension Hetal Alonso Work Phone: [facility] Work Phone: Comment on above: Series: 01-22-2021 Pfizer-BioNTech COVI D-19 Vacc 30 MCG/0.3ML Intramuscular Suspension Hetal Alonso Work Phone: [facility] Work Phone: Comment on above: Series: Payers Date Payer Category Payer Unknown 1980 Unknown [id number] 2.16. [id number] 1978 Unknown [id number] 2.16. [id number] 1978 Unknown [id number] 2.16. 840.1.353485.3.579.2.356 1978 Unknown [id number] 2.16. 840.1.835514.3.579.2.356 1978 Unknown [id number] 2.16. 840.1.587591.3.579.2.356 1978 Unknown [id number] 2.16. 840.1.771950.3.579.2.356 1978 Unknown [id number] 2.16.84 0.1.411813.3.579.2.593 1978 Unknown [id number] 2.16.84 0.1.673660.3.579.2.593 1978 Unknown [id number] 2.16.84 0.1.668484.3.579.2.593 1978 Unknown [id number] 2.16.84 0.1.093336.3.579.2.593 1978 Unknown [id number] 2.16.84 0.1.996650.3.579.2.593 1978 Unknown [id number] 2.16.84 0.1.254065.3.579.2.593 1978 Unknown [id number] 2.16.84 0.1.453079.3.579.2.593 1978 Unknown [id number] 2.16.84 0.1.628412.3.579.2.593 1978 Unknown [id number] 2.16.8 40.1.622199.3.579.2.159 1978 Unknown [id number] 2.16.8 40.1.527636.3.579.2.159 1978 Unknown [id number] 2.16.8 40.1.662489.3.579.2.159 1978 Unknown [id number] 2.16.8 40.1.267711.3.579.2.159 1978 Unknown [id number] 2.16.8 40.1.203422.3.579.2.159 1978 Unknown [id number] 2.16.8 40.1.036664.3.579.2.159 1978 Unknown [id number] 2.16.8 40.1.805699.3.579.2.159 1978 Unknown [id number] 2.16.8 40.1.569174.3.579.2.159 1978 Unknown [id number] 2.16.8 40.1.001203.3.579.2.159 1978 Unknown [id number] 2.16.8 40.1.619751.3.579.2.159 1978 Unknown [id number] 2.16.8 40.1.901522.3.579.2.159 1978 Unknown [id number] 2.16.8 40.1.314519.3.579.2.159 1978 Unknown [id number] 2.16.8 40.1.757288.3.579.2.159 1978 Unknown [id number] 2.16.8 40.1.995012.3.579.2.1244 1978 Unknown [id number] 2.16.8 40.1.203794.3.579.2.1244 1978 Unknown [id number] 2.16.8 40.1.886062.3.579.2.1244 1959 Unknown [id number] Social History Date Type Detail Facility Start: 07-18-2023 End: 12-27-2023 Never a smoker Never a smoker [facility] Work Phone: Start: 07-18-2023 End: 12-27-2023 [facility] Start: 06-28-2023 Tobacco smoking status NHIS Never smoked tobacco [facility] Work Phone: Start: 06-28-2023 Tobacco use and exposure Smokeless tobacco non-user [facility] Work Phone: Start: 07-18-2023 End: 12-27-2023 Alcohol intake Current drinker of alcohol (finding) [facility] Work Phone: Start: 1980 [facility] Start: 10-11-2023 End: 12-27-2023 Exposure to SARS-CoV-2 (event) Not sure [facility] Clinical Notes 04-04-2020 to 12-27-2023 Hetal Alonso MD - 12/27/2023 11:15 AM Misty Alonso MD - 10/21/2023 12:15 PM ESTAssessment & Plan Note - Hetal Alonso MD - 07/18/2023 7:51 PM EDT Note Date & Type Note Facility 12-27-2023 History of Present illness Narrative Subjective Patient ID: Sera Woo is a 43 y.o. female who presents for Anxiety (She is scheduled to have surgery on her ankle in 5 weeks. She is very anxious about it. ) and Hip Pain (Bilateral hip pain, chiropractor suggested PT. ). Very pleasant 43-year-old is going to have surgery on her ankle in 5 weeks Needs reconstruction Has had discomfort for over a year in that ankle ever since the accident This is leading to a great deal of anxiety adjustment issues insomnia and in general not feeling well a lot of emotional instability as a result of the uncertainty of this and her frustration as she has gained weight because she has not been able to walk because of the pain in her legs she is also developed some weakness in her lower extremities and also now has bilateral hip pain is going on for several weeks making it difficult for her to move walk and function is also waking her up at night no injury to her back no incontinence no numbness or tingling in the legs No SI or HI not danger to herself or others her quality of life is not good Review of Systems Constitutional: no chills, no [...] and no swollen glands . Objective BP 138/80 Pulse 80 Temp 36.7 C (98 F) Ht 1.676 m (5' 6 ) Wt (!) 151 kg (333 lb) BMI 53.75 kg/m Physical Exam The patient [...] Assessment/Plan Problem List Items Addressed This Visit Adjustment disorder with mixed anxiety and depressed mood - Primary Weakness of both lower extremities Bilateral hip pain Relevant Orders Referral to Physical Therapy Begin Lexapro 5 mg Recommend counseling Physical therapy for strengthening of the weakness in the legs and bilateral hip weakness Above normal BMI nutrition and physical activity reviewed Schedule annual wellness exam otherwise follow-up in 6 to 8 weeks to make sure medication is working Hetal Alonso MD documented in this encounter [facility] Work Phone: 10-21-2023 Note PROCEDURE: XR CHEST 2 VIEWS [...] OLIVER INFANTE MD Signed Out: 10/21/23 14:17:29 [facility] 10-21-2023 History of Present illness Narrative [...] Hetal Alonso MD documented in this encounter [facility] Work Phone: 07-18-2023 Evaluation + Plan note Associated Problem(s): Morbid obesity with body mass index (BMI) of 50.0 to 59.9 in adult (CMS/HCC) Above normal BMI nutrition and physical activity reviewed [facility] Work Phone: 07-18-2023 Miscellaneous Notes Associated Problem(s): Morbid obesity with body mass index (BMI) of 50.0 to 59.9 in adult (CMS/HCC) Above normal BMI nutrition and physical activity reviewed Associated Problem(s): Avascular necrosis of right talus (CMS/HCC) Persistant pain Continue current managment documented in this encounter [facility] Work Phone: 07-18-2023 Evaluation + Plan note Associated Problem(s): Avascular necrosis of right talus (CMS/HCC) Persistant pain Continue current managment [facility] Work Phone: 06-28-2023 History of Present illness [...] is no history of angina, kidney disease, CAD/VA, CVA, heart failure, left ventricular hypertrophy, PVD [...] Hetal Alonso MD documented in this encounter [facility] Work Phone: 04-29-2023 Evaluation note Encounter Date [...] (ICD-10 - G89.29) Follow up after procedure [facility] Other 06-16-2023 NoteProcedure: MR Lumbar Spine without [...] By: QUENTIN CARNEY MD Signed Out: 04/19/23 16:05:36[facility]06-02-2023 Evaluation note* Encounter Date Diagnosis Assessment [...] negative findings were considered in medical decision-making. [facility] Other 05-31-2023 NotePT Outpatient Progress Note Entered [...] wedge to encourage calcaneus into more eversion. Rombauer okay to patient butwill have patient use [...] 6 Numeric Pain Score : 6 Cosme PT, Abdoulaye 04/03/2023 12:59 EDT Aquatic Therapy Aqua Ankle - grid Exercise 1 Exercise 2 Exercise 3 Exercise 4 Exercise : Warm-up walk Calf stretch Ankle Pumps, Ankle circles, Alphabet trace One leg stance Reps/Time : 5' 20x3 2x20 30x3 Comment : KE and KF alphabet x1 Cosme PT, Abdoulaye 04/03/2023 12:59 EDT Cosme PT, Abdoulaye 04/03/2023 12:59 EDT Cosme PT, Abdoulaye 04/03/2023 12:59 EDT Cosme PT, Abdoulaye 04/03/2023 12:59 EDT Exercise 5 Exercise 6 Exercise 7 Exercise 8 Exercise : Calf Raises, Other: Toe raises Other: Standing Inversion and Eversion Other: Squats Step-up, Other: and Lateral step downs Reps/Time : x20 ea x15 ea x30 x20 ea Comment : bottom pool step; lateral 15x today Cosme DAWN, Abdoulaye 04/03/2023 12:59 EDT Cosme PT, Abdoulaye 04/03/2023 12:59 EDT Cosme PT, Abdoulaye 04/03/2023 12:59 EDT Cosme PT, Abdoulaye 04/03/2023 12:59 EDT Exercise 9 Exercise 10 Exercise 11 Exercise 12 Exercise : Carioca, Step/Plant, March walk, Retro walk, Lateral walk Other: Flex, Abd, Extension ofhips Water cycle - deep Other: Gait training trying to improve toe off, delaying heel off slightly. Reps/Time : 6w x20 ea 5' 4w - 0 Comment : ABDuction, hang with noodle Cosme PT, Abdoulaye 04/03/2023 12:59 EDT Cosme PT, Abdoulaye 04/03/2023 12:59 EDT Cosme PT, Abdoulaye 04/03/2023 12:59 EDT Cosme PT, Abdoulaye 04/03/2023 12:59 EDT Exercise 13 Exercise : Cool down walk Reps/Time : 3' Comment : DittAbdoulaye huff PT - 04/03/2023 12:59 EDT Education *Barriers To Learning : None evident *Teaching Method : Demonstration Patient Education - PT Outpatient : Home exercise program - progression/modification Abdoulaye Aguiar PT - 04/03/2023 12:59 EDT Assessment PT Clinical Assessment Summary : Sebastián session okay despite occasional Zings in ankle, most always associated with plantar flexion. Abdoulaye Aguiar PT - 04/03/2023 12:59 EDT Plan Frequency : 2 times per week *Duration : 8 Weeks *Treatments : Balance training, Manual therapy, Therapeutic exercises, Patient education, Gait training *Plan for Next Visit : Finish up on land visits. to see pain management MD Home Exercise Program/Other PT Treatment Provided : Initiated Treatment Plan/Goals Established with Patient/Caregiver : Yes Abdoulaye Aguiar PT - 04/03/2023 12:59 EDT Time Spent with Patient [...] 0 Abdoulaye [facility]uiar PT - [facility]23 12:[facility] Out[facility] Progress Note Entered [...] wedge to encourage calcaneus into more eversion. Rombauer okay to patient butwill have patient use for awhile to ascertain tolerability. Attending Physician : Name: STEFAN SOTO PT, Abdoulaye - 03/29/2023 9:02 EDT Pain Assessment Pain [...] : Comment : Abdoulaye Aguiar PT - 03/29/2023 13:40 EDT Abdoulaye Aguiar PT - 03/29/2023 13:40 EDT Abdoulaye Aguiar PT 03/29/2023 13:40 EDT Abdoulaye Aguiar PT - 03/29/2023 13:40 EDT Exercise 5 Exercise 6 Exercise 7 Exercise 8 Exercise : Seated Baps Standing with relaxed foot Modified tandem stand Seated Dome Equipment/Device : Repetition/Time : 10 ea 1 minute 10x2 3x10 Resist or Assist : Not Performed : X X X HEP Given : Comment : x4 way and CW/CCW Abdoulaye Aguiar PT 03/29/2023 13:40 EDT Abdoulaye Aguiar PT - 03/29/2023 13:40 EDT Abdoulaye Aguiar PT - 03/29/2023 13:40 EDT Cosme DAWN Abdoulaye 03/29/2023 13:40 EDT Exercise 9 Exercise [...] X HEP Given : Yes Comment : Abdoulaye Aguiar PT 03/29/2023 13:40 EDT Cosme DAWN Abdoulaye 03/29/2023 13:40 EDT Cosme DAWN Abdoulaye 03/29/2023 13:40 EDT Cosme DAWN Abdoulaye 03/29/2023 13:40 EDT Exercise 14 Exercise [...] 15' Cosme DAWN Abdoulaye 03/29/2023 13:40 EDT Cosme DAWN Abdoulaye 03/29/2023 13:40 EDT Education *Barriers To Learning : None evident *Teaching Method : Explanation Patient Education - PT Outpatient : Home exercise program - progression/modification Cosme DAWN Abdoulaye 03/29/2023 13:40 EDT Assessment PT Clinical Assessment Summary : Sebastián session well although mobs and pushing range quite uncomfortable. Will cont to work with patient on limited basis to maintain present range and improve upon mobility if possible; also, encourage cont's work on weightbearing and gait. Cosme DAWN Abdoulaye 03/29/2023 13:40 EDT Plan Frequency : 2 times per week *Duration : 8 Weeks *Treatments : Balance training, Manual therapy, Therapeutic exercises, Patient education, Gait training *Plan for Next Visit : Cont as above to patient tolerance, ankle and achilles. Home Exercise Program/Other PT Treatment Provided : Initiated Treatment Plan/Goals Established with Patient/Caregiver : Yes Cosme DAWN Abdoulaye 03/29/2023 13:40 EDT Time Spent with Patient [...] Rule Unit Difference PT OP : 0 Cosme PTAbdoulaye - 03/29/2023 13:[facility] Outpatient Progress Note Entered [...] wedge to encourage calcaneus into more eversion. Rombauer okay to patient butwill have patient use for awhile to ascertain tolerability. Attending Physician : Name: STEFAN SOTO PTA, Paula - 03/26/2023 8:59 EDT Subjective : Pt saw a neurologist and was givien a diagnosis of CRPS. Will be seeing pain management for trial injections. Pt is experiencing increased swelling in the evening. has not been able to complete her ankle and calf stretching d/t pain, and now feels very tight. Meredith Menendez PTA - 03/26/2023 11:24 EDT Manual Therapy : Yes Modalities : Yes Meredith Menendez PTA 03/26/2023 8:59 EDT Pain Assessment Pain Location : Ankle Laterality : Right Self Report Pain : Numeric rating scale Numeric Pain Scale : 5 = Moderate pain Numeric Pain Score : 5 Meredith Menendez PTA - 03/26/2023 8:59 EDT Manual Therapy Manual Therapy Activity 1 Activity 2 Type/Technique : IASTM, Manual stretch, Myofascial/Soft tissue mobilization Region : Right ankle Equipment/Medium : Deep prep, Smart tools Deep prep Meredith Menendez PTA 03/26/2023 8:59 EDT Meredith Menendez PTA 03/26/2023 8:59 EDT Modalities Modalities Activity 1 Modality : Vasopneumatic device therapy Body Region : R ankle Settings : H Minutes : 15 minutes Meredith Menendez PTA 03/26/2023 8:59 EDT Education *Barriers To Learning : None evident *Teaching Method : Demonstration, Explanation Patient Education - PT Outpatient : N/A Shon HAKEEMMeredith - 03/26/2023 8:59 EDT Assessment PT Response to Treatment : Tolerated well PT Clinical Assessment Summary : Pt responded well to manual work and edema was reduced with use ofvasopneumatic device. Shon PALACIO Meredith David 03/26/2023 8:59 EDT Plan Frequency : 2 times per week *Duration : 8 Weeks *Treatments : Balance training, Manual therapy, Therapeutic exercises, Patient education, Gait training *Plan for Next Visit : Resume full routine Home Exercise Program/Other PT Treatment Provided : Initiated Treatment Plan/Goals Established with Patient/Caregiver : Yes Shon PALACIO Meredith - 03/26/2023 8:59 EDT Time Spent with Patient - Outpatient PT Time In : 00:00 EST PT Time Out : 00:00 EST PT Soft Tissue Mobility Time : 0 minutes MICA SIZER Soft Tissue Mobility Units : 0 units PT Total Timed Code Treatment Units : 0 units PT Total Timed Code Tx Minutes : 0 minutes 8 Min Rule Unit Check PT OP : 0 units PT Total Treatment Time Rehab : 0 minutes 8 Min Rule Unit Difference PT OP : 0 Shon PALACIO Meredith - 03/26/2023 8:[facility]PT Outpatient Progress Note Entered On: [...] wedge to encourage calcaneus into more eversion. Rombauer okay to patient butwill have patient use for awhile to ascertain tolerability. Attending Physician : Name: STEFAN SOTO Subjective : Pt states she is still having trouble getting started d/t pain, but as she continues to ambulate, it improves. Feels she walks best at home in bare feet, but shoes with support pose a problem with stability. Therapeutic Exercise : Yes Shon PALACIO, Meredith - 03/12/2023 8:54 EDT Therapeutic Exercise Custom Therapeutic Exercise Exercise 1 Exercise 2 Exercise 3 Exercise 4 Exercise : Ankle ROM Right Towel Stretch t-band 4X Seated AROM (PF/DF)(Inv/Ev) Equipment/Device : Repetition/Time : x20 ea 20x3 KE and KF 15x2 x20 ea Resist or Assist : Red Not Performed : X HEP Given : Comment : Shon PALACIO, Meredith - 03/12/2023 8:54 EDT Shon PALACIO, Meredith - 03/12/2023 8:54 EDT Shon PALACIO, Meredith - 03/12/2023 8:54 EDT Shon PALACIO, 03/12/2023 8:54 EDT Exercise 5 Exercise 6 Exercise 7 Exercise 8 Exercise : Seated Baps Standing with relaxed foot Modified tandem stand Seated Dome Equipment/Device : Repetition/Time : 10 ea 1 minute 10x2 3x10 Resist or Assist : Not Performed : X X X HEP Given : Comment : x4 way and CW/CCW Shon PALACIO, Meredith - 03/12/2023 8:54 EDT Shon PALACIO, Meredith - 03/12/2023 8:54 EDT Shon PALACIO, Meredith - 03/12/2023 8:54 EDT Shon PALACIO, 03/12/2023 8:54 EDT Exercise 9 Exercise 10 [...] HEP Given : Yes Comment : Shon PALACIO, Meredith - 03/12/2023 8:54 EDT Shon MICA SIZER, Meredith - 03/12/2023 8:54 EDT Shon PALACIO, Meredith - 03/12/2023 8:54 EDT Shon PALACIO, Meredith - 03/12/2023 8:54 EDT Exercise 14 Exercise : Gait training without AD Equipment/Device : Repetition/Time : 25 min Resist or Assist : Not Performed : HEP Given : Comment : Meredith Menendez PTA - 03/12/2023 8:54 EDT Education *Barriers To Learning : None evident *Teaching Method : Demonstration, Explanation Patient Education - PT Outpatient : N/A Meredith Menendez PTA - 03/14/2023 10:24 EDT Assessment PT Response to Treatment : Tolerated well PT Clinical Assessment Summary : Added lateral hip strengthening this visit for increasing stability for gait tasks. addressed pt's concerns with pain management not scheduling her until she has and MRI for the spine, whch will not be approved until she completed 6 weeks of PT for her spine. Meredith Menendez PTA 03/14/2023 10:24 EDT Plan Frequency : 2 times per week *Duration : 8 Weeks *Treatments : Balance training, Manual therapy, Therapeutic exercises, Patient education, Gait training *Plan for Next Visit : progess hip and LE strengthening for gait talks Home Exercise Program/Other PT Treatment Provided : Initiated Treatment Plan/Goals Established with Patient/Caregiver : Yes Shonmila PALACIOMeredith 03/14/2023 10:24 EDT Time Spent with Patient - Outpatient PT Time In : 00:00 EST PT Time Out : 00:00 EST PT Therapeutic Exercise Time : 0 minutes MICA SIZER Therapeutic Exercise Units : 0 units PT Total Timed Code Treatment Units : 0 units PT Total Timed Code Tx Minutes : 0 minutes 8 Min Rule Unit Check PT OP : 0 units PT Total Treatment Time Rehab : 0 minutes 8 Min Rule Unit Difference PT OP : 0 Meredith Menendez PTA - 03/14/2023 10:[address] [facility] Out[facility] Progress Note [...] wedge to encourage calcaneus into more eversion. Rombauer okay to patient butwill have patient use for awhile to ascertain tolerability. Attending Physician : Name: STEFAN SOTO Subjective : Pt continues to have nerve pain at anterior ankle but feels good today. Has been walking barefoot at home without AD, feeling good. Therapeutic Exercise : Yes Shon PALACIO, Meredith - 03/05/2023 11:48 EDT Therapeutic Exercise Custom Therapeutic Exercise Exercise 1 Exercise 2 Exercise 3 Exercise 4 Exercise : Ankle ROM Right Towel Stretch t-band 4X Seated AROM (PF/DF)(Inv/Ev) Equipment/Device : Repetition/Time : x20 ea 20x3 KE and KF 15x2 x20 ea Resist or Assist : Red Not Performed : X HEP Given : Comment : Shon PALACIO, Meredith 03/05/2023 11:48 EDT Shon MICA SIZER, Meredith 03/05/2023 11:48 EDT Shon MICA SIZER, Meredith 03/05/2023 11:48 EDT Shon MICA SIZER, Meredith 03/05/2023 11:48 EDT Exercise 5 Exercise 6 Exercise 7 Exercise 8 Exercise : Seated Baps Standing with relaxed foot Modified tandem stand Seated Dome Equipment/Device : Repetition/Time : 10 ea 1 minute 10x2 3x10 Resist or Assist : Not Performed : X X X HEP Given : Comment : x4 way and CW/CCW Shon PALACIO, Meredith 03/05/2023 11:48 EDT Shon PALACIO, Meredith 03/05/2023 11:48 EDT Shon MICA SIZER, Meredith - 03/05/2023 11:48 EDT Shon PALACIO, Meredith 03/05/2023 11:48 EDT Exercise 9 Exercise 10 [...] HEP Given : Yes Comment : Shon PALACIO, Meredith 03/05/2023 11:48 EDT Shon MICA SIZER, Meredith 03/05/2023 11:48 EDT Shon MICA SIZER, Meredith 03/05/2023 11:48 EDT Shon MICA SIZER, Meredith 03/05/2023 11:48 EDT Exercise 14 Exercise : Gait training without AD Equipment/Device : Repetition/Time : Resist or Assist : Not Performed : HEP Given : Comment : Mereidth Menendez PTA 03/05/2023 11:48 EDT Education *Barriers To Learning : None evident *Teaching Method : Demonstration, Explanation Patient Education - PT Outpatient : N/A Meredith Menendez PTA David 03/05/2023 14:06 EDT Assessment PT Response to Treatment : Tolerated well PT Clinical Assessment Summary : Focused on gait training in even and uneven surfaces with emphasison symmetrical sstride length and WS without use of ADs. Pt demonstrates improvement with progressive trials. Meredith Menendez PTA David 03/05/2023 14:06 EDT Plan Frequency : 2 times per week *Duration : 8 Weeks *Treatments : Balance training, Manual therapy, Therapeutic exercises, Patient education, Gait training *Plan for Next Visit : Assess response to inceased ambulation without AD. Home Exercise Program/Other PT Treatment Provided : Initiated Treatment Plan/Goals Established with Patient/Caregiver : Yes Meredith Menendez PTA 03/05/2023 14:06 EDT Time Spent with Patient - Outpatient PT Time In : 00:00 EST PT Time Out : 00:00 EST PT Therapeutic Exercise Time : 0 minutes MICA SIZER Therapeutic Exercise Units : 0 units PT Total Timed Code Treatment Units : 0 units PT Total Timed Code Tx Minutes : 0 minutes 8 Min Rule Unit Check PT OP : 0 units PT Total Treatment Time Rehab : 0 minutes 8 Min Rule Unit Difference PT OP : 0 Meredith Menendez PTA 03/05/2023 14:[address] [facility]PT Outpatient Progress Note [...] wedge to encourage calcaneus into more eversion. Rombauer okay to patient butwill have patient use for awhile to ascertain tolerability. Attending Physician : Name: STEFAN SOTO Subjective : Had a bad day yesterday, not as bad today. Therapeutic Exercise : Yes Trinitydudley LÓPEZ Abdoulaye - 03/15/2023 9:00 EDT Pain Assessment Pain Location : Ankle Laterality : Right Self Report Pain : Numeric rating scale Numeric Pain Scale : 4 Numeric Pain Score : 4 Cosme DAWN Abdoulaye - 03/15/2023 9:00 EDT Therapeutic Exercise Custom Therapeutic Exercise Exercise 1 Exercise 2 Exercise 3 Exercise 4 Exercise : Ankle ROM Right Towel Stretch t-band 4X Seated AROM (PF/DF)(Inv/Ev) Equipment/Device : Repetition/Time : x20 ea 20x3 KE and KF 15x2 x20 ea Resist or Assist : Red Not Performed : X HEP Given : Comment : Cosme DAWN Abdoulaye - 03/15/2023 9:00 EDT Cosme DAWN Abdoulaye - 03/15/2023 9:00 EDT Cosme DAWN Abdoulaye - 03/15/2023 9:00 EDT Cosme DAWN Abdoulaye - 03/15/2023 9:00 EDT Exercise 5 Exercise 6 Exercise 7 Exercise 8 Exercise : Seated Baps Standing with relaxed foot Modified tandem stand Seated Dome Equipment/Device : Repetition/Time : 10 ea 1 minute 10x2 3x10 Resist or Assist : Not Performed : X X X HEP Given : Comment : x4 way and CW/CCW Cosme DAWN Abdoulaye - 03/15/2023 9:00 EDT Cosme DAWN Abdoulaye - 03/15/2023 9:00 EDT Cosme DAWN Abdoulaye - 03/15/2023 9:00 EDT Cosme DAWN Abdoulaye - 03/15/2023 9:00 EDT Exercise 9 [...] DAWN Abdoulaye - 03/15/2023 9:00 EDT Daphnerefugio LÓPEZ Abdoulaye - 03/15/2023 9:00 EDT Cosme DAWN Abdoulaye - 03/15/2023 9:00 EDT Daphnerefugio LÓPEZ Abdoulaye - 03/15/2023 9:00 EDT Exercise 14 Exercise : Gait training without AD Equipment/Device : Repetition/Time : 25 min Resist or Assist : Not Performed : HEP Given : Comment : Daphnerefugio LÓPEZ Abdoulaye - 03/15/2023 9:00 EDT Education *Barriers To Learning : None evident *Teaching Method : Explanation Patient Education - PT Outpatient : Home exercise program - progression/modification Daphnerefugio LPÓEZ Abdoulaye - 03/15/2023 9:00 EDT Assessment PT Clinical Assessment Summary : Having a better day; patient reports she feels better after manualsessions in regards to comfort and mobility Daphnerefugio LÓPEZ Abdoulaye - 03/15/2023 9:00 EDT Plan Frequency : 2 times per week *Duration : 8 Weeks *Treatments : Balance training, Manual therapy, Therapeutic exercises, Patient education, Gait training *Plan for Next Visit : Cont manual therapy, exercises, gait training. Home Exercise Program/Other PT Treatment Provided : Initiated Treatment Plan/Goals Established with Patient/Caregiver : Yes Cosme DAWNAbdoulaye - 03/15/2023 9:00 EDT Time Spent with [...] Rule Unit Difference PT OP : 0 Trinitytammirefugio LÓPEZ Abdoulaye - 03/15/2023 9:00 [facility] 03-13-2023 NotePT Outpatient Progress Note Entered On: 03/13/2023 13:29 EDT Performed On: 03/13/2023 10:30 EDT by Favio Whittaker PT Review/Treatments Provided Total Visit Count : 52 Visit Count Reviewed? 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 Modified metatarsal cookie to use as lateral heel wedge to encourage calcaneus into more eversion. Rombauer okay to patient butwill have patient use for awhile to ascertain tolerability. Attending Physician : Name: BRITTANY STEFAN KEVIN Subjective : good day per pt., using 1 walking stick Aquatics : Yes Panfilo PT, Favio 03/13/2023 13:19 EDT Nursing Home Goals PT Outpt Pt Goal - grid Goal #1 PT Patient,Caregiver Goal : Walk with normal gait characteristics (non-everted) using appropriate toe-off. Duration : 8 weeks Status : Initial Date : 02/06/2023 EDT Panfilo PT, Favio 03/13/2023 13:19 EDT General Function Goal #1 [...] EDT Panfilo PT, Favio 03/13/2023 13:19 EDT Aquatic Therapy Aqua Ankle [...] Panfilo PT, Favio 03/13/2023 13:19 EDT Exercise 5 Exercise 6 Exercise 7 Exercise 8 Exercise : Calf Raises, Other: Toe raises Other: Standing Inversion and Eversion Other: Squats Step-up, Other: and Lateral step downs Reps/Time : x20 ea x15 ea x30 x20 ea Comment : bottom pool step; lateral 15x today Panfilo PT, Favio 03/13/2023 13:19 EDT Panfilo PT, Favio 03/13/2023 13:19 EDT Panfilo PT, [facility] 03/13/2023 13:19 EDT Panfilo PT, Favio 03/13/2023 [...] : ABDuction, hang with noodle Panfilo PT, [facility] 03/13/2023 13:19 EDT Panfilo PT, [facility] 03/13/2023 13:19 EDT Panfilo PT, [facility] 03/13/2023 13:19 EDT Panfilo PT, [facility] 03/13/2023 13:19 EDT Exercise 13 Exercise : Cool down walk Reps/Time : 3' Comment : Panfilo DAWN, [facility] 03/13/2023 13:19 EDT Education *Barriers To Learning : None evident *Teaching Method : Demonstration, Explanation Patient Education - PT Outpatient : Other: SL walk Panfilo PT, [facility] 03/13/2023 13:19 EDT Assessment PT Response to Treatment : Tolerated well PT Clinical Assessment Summary : Pt. takes time to do exercises, walking with good form. Panfilo PT, [facility] 03/13/2023 13:19 EDT Plan Frequency : 2 times per week *Duration : 8 Weeks *Treatments : Balance training, Manual therapy, Therapeutic exercises, Patient education, Gait training *Plan for Next Visit : continue protocal Home Exercise Program/Other PT Treatment Provided : Initiated Treatment Plan/Goals Established with Patient/Caregiver : Yes Panfilo PT, [facility] 03/13/2023 13:19 EDT Time Spent with Patient [...] PT OP : 0 Favio Whittaker PT - 03/13/2023 13:[facility] Out[facility] Progress Note Entered On: 03/08/2023 [...] wedge to encourage calcaneus into more eversion. Rombauer okay to patient butwill have patient use [...] Modalities : Yes Abdoulaye Aguiar PT - 03/08/2023 10:55 EDT Allergies & Medications [...] Line: 8 mg = 1 tabs, ORAL, [id number], PRN: as needed for nausea/vomiting, 30 tabs, 0 Refill(s) ; Ordering Provider: YARELI FOREMAN DPM, RES; Catalog Code: ondansetron ; Order Dt/Tm: 04/14/2020 11:00:03 EDT acetaminophen-hydrocodone : acetaminophen-hydrocodone ; Status: Prescribed ; Ordered As Mnemonic: acetaminophen-HYDROcodone 325 mg-5 mg oral tablet ; Simple Display Line: 2 tabs, ORAL, [id number], PRN: Moderate to Severe Pain, 30 tabs, [...] CW/CCW Erwin Aguiar PT (more content not included)...[facility] 03-06-2023 NotePT Outpatient Progress Note Entered [...] wedge to encourage calcaneus into more eversion. Rombauer okay to patient butwill have patient use for awhile to ascertain tolerability. Attending Physician : Name: STEFAN SOTO Subjective : WAs busy yesterday on feet, did walking without support and did okay. Another busy daytoday. Aquatics : Yes Cosme PT, Abdoulaye - 03/06/2023 13:08 EDT Aquatic Therapy Aqua Ankle - grid Exercise 1 Exercise 2 Exercise 3 Exercise 4 Exercise : Warm-up walk Calf stretch Ankle Pumps, Ankle circles One leg stance Reps/Time : 3' 20x3 x20 10x3 Comment : KE and KF Cosme PT, Abdoulaye - 03/06/2023 13:08 EDT [...] 3' 4w - 0 Comment : Cosme DAWN, Abdoulaye - 03/06/2023 13:08 EDT Cosme DAWN Abdoulaye - 03/06/2023 13:08 EDT Abdoulaye Aguiar PT - 03/06/2023 13:08 EDT Abdoulaye Aguiar PT - 03/06/2023 13:08 EDT Exercise 13 Exercise : Cool down walk Reps/Time : 3' Comment : Abdoulaye Aguiar PT - 03/06/2023 13:08 EDT Education *Barriers To Learning : None evident *Teaching Method : Explanation Patient Education - PT Outpatient : Home exercise program - progression/modification Abdoulaye Aguiar PT - 03/06/2023 13:08 EDT Assessment PT Clinical Assessment Summary : Did well despite increased and additions in exercise Abdoulaye Aguiar PT - 03/06/2023 13:08 EDT Plan Frequency : 2 times per week *Duration : 8 Weeks *Treatments : Balance training, Manual therapy, Therapeutic exercises, Patient education, Gait training *Plan for Next Visit : Cont and push better gait, strength, and balance. Home Exercise Program/Other PT Treatment Provided : Initiated Treatment Plan/Goals Established with Patient/Caregiver : Yes Abdoulaye Aguiar PT - 03/06/2023 13:08 EDT Time Spent [...] 0 Abd[facility] - [facility] Progress Note Entered On: [...] wedge to encourage calcaneus into more eversion. Rombauer okay to patient butwill have patient use [...] : Comment : Abdoulaye Aguiar PT - 03/01/2023 10:28 EDT Abdoulaye Aguiar PT - 03/01/2023 10:28 EDT Abdoulaye Aguiar PT - 03/01/2023 10:28 EDT Erwin Aguiar PTe - 03/01/2023 10:28 EDT Exercise 5 Exercise 6 Exercise 7 Exercise 8 Exercise : Seated Baps Standing with relaxed foot Modified tandem stand Seated Dome Equipment/Device : Repetition/Time : 10 ea 1 minute 10x2 3x10 Resist or Assist : Not Performed : X X X HEP Given : Comment : x4 way and CW/CCW Erwin Aguiar PTe - 03/01/2023 10:28 EDT Erwin Aguiar PTe - 03/01/2023 10:28 EDT Mirza Aguiar PTnie - 03/01/2023 10:28 EDT Erwin Aguiar PTe - 03/01/2023 10:28 EDT Exercise 9 Exercise 10 [...] X HEP Given : Yes Comment : Abdoulaye Aguiar PT - 03/01/2023 10:28 EDT Abdoulaye Aguiar PT - 03/01/2023 10:28 EDT Abdoulaye Aguiar PT - 03/01/2023 10:28 EDT Abdoulaye Aguiar PT - 03/01/2023 10:28 EDT Education *Barriers To Learning : None evident *Teaching Method : Demonstration, Explanation Patient Education - PT Outpatient : Anatomy, Precautions reviewed Abdoulaye Aguiar PT - 03/01/2023 10:28 EDT Assessment PT Clinical [...] 0 Abdoulaye Aguiar PT - 03/01/2023 10:[address] [facility] Out[facility] Progress Note Entered On: [...] : Abdoulaye Aguiar PT 02/27/2023 10:54 EDT Abdoulaye Aguiar PT - 02/27/2023 10:54 EDT Abdoulaye Aguiar PT 02/27/2023 10:54 EDT Abdoulaye Aguiar PT - 02/27/2023 10:54 EDT Exercise 5 Exercise 6 Exercise 7 Exercise 8 Exercise : Seated Baps Standing with relaxed foot Modified tandem stand Seated Dome Equipment/Device : Repetition/Time : 10 ea 1 minute 10x2 3x10 Resist or Assist : Not Performed : HEP Given : Comment : x4 way and CW/CCW Abdoulaye Aguiar PT 02/27/2023 10:54 EDT Abdoulaye Aguiar PT - 02/27/2023 10:54 EDT Abdoulaye Aguiar PT - 02/27/2023 10:54 EDT Abdoulaye Aguiar PT 02/27/2023 10:54 EDT Exercise 9 Exercise 10 [...] X HEP Given : Yes Comment : Abdoulaye Aguiar PT 02/27/2023 10:54 EDT Cosme DAWN Abdoulaye 02/27/2023 10:54 EDT Cosme DAWN Abdoulaye 02/27/2023 10:54 EDT Cosme DAWN Abdoulaye 02/27/2023 10:54 EDT Education *Barriers To [...] center of gravity and give of midsole. Cosme DAWN Abdoulaye 02/27/2023 10:54 EDT Plan Frequency : 2 times per week *Duration : 8 Weeks *Treatments : Balance training, Manual therapy, Therapeutic exercises, Patient education, Gait training *Plan for Next Visit : Cont per plan Home Exercise Program/Other PT Treatment Provided : Initiated Treatment Plan/Goals Established with Patient/Caregiver : Yes Cosme DAWNAbdoulaye 02/27/2023 10:54 EDT Time Spent with Patient [...] Rule Unit Difference PT OP : 0 Cosme DAWN Abdoulaye 02/[facility]2023 10:[facility] Outpatient Progress Note Entered On: [...] re: first aquatic session Aquatics : Yes Rusaidai DPT, Mesha 02/26/2023 16:01 EDT Aquatic Therapy Aqua Ankle - grid Exercise 11 Exercise 1 Exercise 2 Exercise 3 Exercise : Water cycle - bench Warm-up walk Calf stretch Ankle Pumps, Ankle circles Reps/Time : 3' 3' 20x3 x20 Comment : KE and KF Rucinski DPT, Mesha 02/26/2023 16:13 EDT Rucinski DPT, Mesha 02/26/2023 16:01 EDT Rucinski DPT, Mesha02/26/2023 16:01 EDT Rucinski DPT, Mesha02/26/2023 16:13 EDT Exercise 4 Exercise 5 Exercise 6 Exercise 7 Exercise : One leg stance Calf Raises, Other: Toe raises Other: Standing Inversion and Eversion Other: Squats Reps/Time : 10x3 x20 ea x15 ea x20 Comment : Rucinski DPT, Mesha 02/26/2023 16:01 EDT Rucinski DPT, Mesha 02/26/2023 16:01 EDT Rucinski DPT, Mesha02/26/2023 16:01 EDT Rucinski DPT, Mesha02/26/2023 16:01 EDT Exercise 8 Exercise 9 Exercise 10 Exercise 12 Exercise : Step-up March walk, Retro walk, Lateral walk Other: Flex, Abd, Extension of hips Other: Gait training trying to improve toe off, delaying heel off slightly. Reps/Time : x10 4w ea x15 ea 4w - 0 Comment : bottom pool step Rucinski DPT, Mesha 02/26/2023 16:13 EDT Rucinski DPT, Mesha 02/26/2023 16:01 EDT Rucinski DPT, Mesha 02/26/2023 16:01 EDT Rucinski DPT, Mesha 02/26/2023 16:13 EDT Exercise 13 Exercise : Cool down walk Reps/Time : 3' Comment : Rucinski DPT, [facility] 02/26/2023 16:13 EDT Education *Barriers To Learning : None evident *Teaching Method : Demonstration, Explanation Patient Education - PT Outpatient : Other: exercise technique Jerrod KATZ, [facility] 02/26/2023 16:13 EDT Assessment PT Response to Treatment : Tolerated well PT Clinical Assessment Summary : Pt reports less soreness following this tx compared to first aquatic session. Notes benefit with water walking and focus on mechanics. Group charge due to pt overlap. Jerrod KATZ, [facility] 02/26/2023 16:13 EDT Plan Frequency : 2 times per week *Duration : 8 Weeks *Treatments : Balance training, Manual therapy, Therapeutic exercises, Patient education, Gait training *Plan for Next Visit : f/u on land; pt requesting print out of aquatic ex's Home Exercise Program/Other PT Treatment Provided : Initiated Treatment Plan/Goals Established with Patient/Caregiver : Yes Jerrod KATZ, [facility] 02/26/2023 16:13 EDT Time Spent with Patient - Outpatient PT Time In : 16:00 EST Jerrod KATZ, [facility] 02/26/2023 16:01 EDT PT Time Out : 16:38 EST Jerrod KATZ, [facility] 02/26/2023 16:13 EDT PT Aquatic Group Therapy Units : 1 units PT Aquatic Group Therapy Time : 15 minutes Jerrod KATZ, [facility] 02/26/2023 16:01 EDT PT Aquatic Units : 2 units PT Aquatic Time : 23 minutes PT Total Timed Code Treatment Units : 2 units PT Total Timed Code Tx Minutes : 23 minutes 8 Min Rule Unit Check PT OP : 2 units Jerrod KATZ, [facility] 02/26/2023 16:13 EDT PT Total Untimed Code Treatment Minutes : 15 minutes Jerrod KATZ, [facility] 02/26/2023 16:01 EDT PT Total Treatment Time Rehab : 38 minutes Jerrod KATZ, [facility] 02/26/2023 16:13 EDT 8 Min Rule Unit Difference PT OP : 0 Jerrod KATZ, [facility] Outpatient Progress Note Entered [...] Ankle circles, Cool down walk (Comment: Inv/Eversion [Abdoulaye Aguiar PT - 02/22/2023 11:27 EDT] ) One leg stance Reps/Time : 3' 20x3 x20 10x3 Resist/Assist : Comment : KE and KF Abdoulaye Aguiar PT - 02/22/2023 11:27 EDT Abdoulaye Aguiar PT - 02/22/2023 11:27 EDT Abdoulaye Aguiar PT - 02/22/2023 11:27 EDT Abdoulaye Aguiar PT - 02/22/2023 11:27 EDT Exercise 5 Exercise 6 Exercise 8 Exercise 9 Exercise : Calf Raises, Other: squats Other: Standing Inversion and Eversion Step-up March walk, Retro walk, Lateral walk Reps/Time : x20 ea x10 ea x10 4w ea Resist/Assist : Other: small red step Comment : Abdoulaye Aguiar PT - 02/22/2023 11:27 EDT Abdoulaye Aguiar PT - 02/22/2023 11:27 EDT Erwin Aguiar PTe - 02/22/2023 11:27 EDT Abdoulaye Aguiar PT - 02/22/2023 11:27 EDT Exercise 10 Exercise 12 Exercise 13 Exercise : Other: Flex, Abd, Extension of hips Other: Gait training trying to improve toe off, delaying heel off slightly. Water cycle - bench Reps/Time : x10 ea 4w 3' Resist/Assist : Comment : Abdoulaye Aguiar PT - 02/22/2023 11:27 EDT Abdoulaye Aguiar PT - 02/22/2023 11:27 EDT Abdoulaye Aguiar PT - 02/22/2023 11:27 EDT Education *Barriers To Learning : None evident *Teaching Method : Demonstration, Explanation Patient Education - PT Outpatient : Home exercise program - progression/modification Abdoulaye Aguiar PT - 02/22/2023 11:27 EDT Assessment PT Clinical Assessment Summary : Sebastián first pool session okay... struggling with PF/DF due to pain at times, often released with distraction and mobs. Abdoulaye Aguiar PT - 02/22/2023 11:27 EDT Plan Frequency : 2 times per week *Duration : 8 Weeks *Treatments : Balance training, Manual therapy, Therapeutic exercises, Patient education, Gait training *Plan for Next Visit : Cont and progress to tolerance Home Exercise Program/Other PT Treatment Provided : Initiated Treatment Plan/Goals Established with Patient/Caregiver : Yes Abdoulaye Aguiar PT - 02/22/2023 11:27 EDT Time Spent with [...] OP : 0 Abdoulaye Aguiar PT - 02/22/2023 11:[facility] Outpatient Progress Note Entered On: 02/21/2023 11:00 EDT Performed On: 02/21/2023 10:54 EDT by Meredith Menenedz PTA Review/Treatments Provided Pain Present : Yes [...] 01/10/23 Attending Physician : Name: BRITTANY STEFAN LYNN Shon PALACIO [facility] 02/21/2023 10:54 EDT Pain Assessment Pain Location : Ankle Laterality : Right Self Report Pain : Numeric rating scale Numeric Pain Scale : 5 = Moderate pain Numeric Pain Score : 5 Shon PALACIO Meredith 02/21/2023 17:53 EDT Gait Analysis PMR Ambulation Comments : Pt progressed to ambulation with B SPC this session with emphasis on symmetrical stance and proper WS. Use of mirror and video for additional feedback helpfull. Pt attemptedgait in batista with use of 1/2 wall; progressively increased confidence. Shon PALACIO Meredith 02/21/2023 17:53 EDT Education *Barriers To Learning : None evident *Teaching Method : Demonstration, Explanation Patient Education - PT Outpatient : Body mechanics, Ergonomics, Introduction to aquatic rehab policies & procedures Shon PALACIO Meredith 02/21/2023 17:53 EDT Assessment PT Response to Treatment : Tolerated well PT Clinical Assessment Summary : Pt educated on initiating symmetrical stance with static stand vs.R foot extended out in front and full WBing on L. Significant time spent of gait re-education and noted improvement with B canes vs. crutches or singe cane. Shon PALACIO Meredith 02/21/2023 17:53 EDT Plan Frequency : 2 times per week *Duration : 8 Weeks *Treatments : Balance training, Manual therapy, Therapeutic exercises, Patient education, Gait training *Plan for Next Visit : continue gait work in pool Home Exercise Program/Other PT Treatment Provided : Initiated Treatment Plan/Goals Established with Patient/Caregiver : Yes Shon PALACIO Meredith 02/21/2023 17:53 EDT Time Spent with Patient - Outpatient PT Time In : 00:00 EST PT Time Out : 00:00 EST PT Gait Training Time : 0 minutes MICA SIZER Gait Training Units : 0 units PT Total Timed Code Treatment Units : 0 units PT Total Timed Code Tx Minutes : 0 minutes 8 Min Rule Unit Check PT OP : 0 units PT Total Treatment Time Rehab : 0 minutes 8 Min Rule Unit Difference PT OP : 0 Meredith Menendez PTA - 02/21/2023 17:[address] [facility] Outpatient Progress Note Entered On: [...] Given : Comment : Meredith Menendez PTA 02/18/2023 16:40 EDT Meredith Menendez PTA 02/18/2023 16:40 EDT Meredith Menendez PTA 02/18/2023 16:40 EDT Meredith Menendez PTA 02/18/2023 16:40 EDT Exercise 5 Exercise 6 Exercise 7 Exercise 8 Exercise : Seated Baps Standing with relaxed foot Modified tandem stand Seated Dome Repetition/Time : 10 ea 1 minute 10x2 3x10 Resist or Assist : Not Performed : HEP Given : Comment : x4 way and CW/CCW Meredith Menendez PTA 02/18/2023 16:40 EDT Meredith Menendez PTA 02/18/2023 16:40 EDT Meredith Menendez PTA 02/18/2023 16:40 EDT Meredith Menendez PTA 02/18/2023 16:40 EDT Exercise 9 Exercise : calcaneal distraction and mobs Repetition/Time : grade II Resist or Assist : Not Performed : X HEP Given : Yes Comment : Meredith Menendez PTA 02/18/2023 16:40 EDT Education *Barriers To Learning : None evident *Teaching Method : Demonstration, Explanation Patient Education - PT Outpatient : N/A Meredith Menendez PTA - 02/18/2023 18:02 EDT Assessment PT Response to Treatment : Tolerated well PT Clinical Assessment Summary : Added BAPS today with good effort; very challenging. Increased attention to symmetrical stance and WS. Pt exhibits improvement with placement and control. Meredith Menendez PTA - 02/18/2023 18:02 EDT Plan Frequency : 2 times per week *Duration : 8 Weeks *Treatments : Balance training, Manual therapy, Therapeutic exercises, Patient education, Gait training *Plan for Next Visit : Begin gait training. Home Exercise Program/Other PT Treatment Provided : Initiated Treatment Plan/Goals Established with Patient/Caregiver : Yes Meredith Menendez PTA - 02/18/2023 18:02 EDT Time Spent with Patient - Outpatient PT Time In : 00:00 EST PT Time Out : 00:00 EST PT Therapeutic Exercise Time : 0 minutes MICA SIZER Therapeutic Exercise Units : 0 units PT Total Timed Code Treatment Units : 0 units PT Total Timed Code Tx Minutes : 0 minutes 8 Min Rule Unit Check PT OP : 0 units PT Total Treatment Time Rehab : 0 minutes 8 Min Rule Unit Difference PT OP : 0 Meredith Menendez PTA - 02/18/2023 18:[address] [facility] Outpatient Progress Note Entered On: 02/15/2023 9:03 EDT Performed On: 02/15/2023 8:13 EDT by Abdoulaye Aguiar PT Review/Treatments Provided Total Visit Count : 43 Visit Count Reviewed? 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 Therapeutic Exercise : Yes Abdoulaye Aguiar PT - 02/15/2023 8:13 EDT Pain Assessment Pain Location : Ankle Self Report Pain : Numeric rating scale Numeric Pain Scale : 3 Numeric Pain Score : 3 Abdoulaye Aguiar PT 02/15/2023 8:13 EDT Therapeutic Exercise Custom Therapeutic Exercise Exercise 1 Exercise 2 Exercise 3 Exercise 4 Exercise : Ankle ROM Right Towel Stretch t-band 4X Seated AROM (PF/DF)(Inv/Ev) Repetition/Time : x20 ea 20x3 KE and KF 10x2 x20 ea Resist or Assist : Red Not Performed : HEP Given : Cosme DAWN Abdoulaye 02/15/2023 8:13 EDT Cosme PT Abdoulaye 02/15/2023 8:13 EDT Cosme PT Abdoulaye 02/15/2023 8:13 EDT Cosme PT Abdoulaye 02/15/2023 8:13 EDT Exercise 5 Exercise 6 Exercise 7 Exercise 8 Exercise : Standing Baps Standing with relaxed foot Modified tandem stand Seated Dome Repetition/Time : next 1 minute 10x2 3x10 Resist or Assist : Not Performed : HEP Given : Cosme DAWN Abdoulaye 02/15/2023 8:13 EDT Cosme DAWN Abdoulaye 02/15/2023 8:13 EDT Cosme PT Abdoulaye 02/15/2023 8:13 EDT Cosme DAWN Abdoulaye 02/15/2023 8:13 EDT Exercise 9 Exercise 10 Exercise : calcaneal distraction and mobs minisquat Repetition/Time : grade IIL Resist or Assist : Not Performed : X HEP Given : Yes Cosme DAWN Abdoulaye 02/15/2023 8:13 EDT Cosme DAWN Abdoulaye 02/15/2023 8:13 EDT Education *Barriers To Learning : None evident *Teaching Method : Demonstration, Explanation Patient Education - PT Outpatient : Home exercise program - progression/modification Cosme DAWN Abdoulaye 02/22/2023 11:25 EDT Assessment PT Clinical Assessment Summary : Sebastián well, some discomfort right medial ankle; amb without boot. Cosme DAWN Abdoulaye 02/22/2023 11:25 EDT Plan Frequency : 2 times per week *Duration : 8 Weeks *Treatments : Balance training, Manual therapy, Therapeutic exercises, Patient education, Gait training *Plan for Next Visit : Cont and progress as tolerated. Home Exercise Program/Other PT Treatment Provided : Initiated Treatment Plan/Goals Established with Patient/Caregiver : Yes Cosme DAWN Abdoulaye 02/22/2023 11:25 EDT Time Spent with Patient [...] Rule Unit Difference PT OP : 0 Cosme PTAbdoulaye - 02/22/2023 11:25 [facility] 02-20-2023 NotePROCEDURE: XR ANKLE RT MIN [...] Electronically authenticated by: JERZY MURRIETA Date: 2023-02-20 10:43[facility]04-14-2023 NotePT Outpatient Progress Note Entered [...] Modalities : Yes Meredith Menendez PTA - 02/11/2023 17:49 EDT Therapeutic Exercise Custom Therapeutic Exercise Exercise 1 Exercise 2 Exercise 3 Exercise 4 Exercise : Ankle ROM Right Towel Stretch t-band 4X Seated AROM (PF/DF)(Inv/Ev) Repetition/Time : x20 ea 20x3 KE and KF 10x2 x20 ea Resist or Assist : Red Not Performed : HEP Given : Comment : Meredith Menendez PTA - 02/11/2023 17:49 EDT Meredith Menendez PTA 02/11/2023 [...] Given : Comment : Shon PALACIO Meredith 02/11/2023 17:49 EDT Shon PALACIO Meredith 02/11/2023 17:49 EDT Shon PALACIO Meredith 02/11/2023 17:49 EDT Shon PALACIO Meredith 02/11/2023 17:49 EDT Exercise 9 Exercise : calcaneal distraction and mobs Repetition/Time : grade II Resist or Assist : Not Performed : X HEP Given : Yes Comment : Shon PALACIO Meredith 02/11/2023 17:49 EDT Manual Therapy Manual Therapy Activity 1 Activity 2 Type/Technique : Myofascial/Soft tissue mobilization Myofascial/Soft tissue mobilization Region : Other: plantar fascia right Other: R achilles Equipment/Medium : Deep prep Deep prep Shon PALACIO Meredith - 02/11/2023 17:49 EDT Shon PALACIO Meredith - 02/11/2023 17:49 EDT Modalities Modalities Activity 1 Modality : Vasopneumatic device therapy Body Region : R ankle Settings : M Minutes : 15 minutes Shon PALACIO Meredith - 02/11/2023 17:49 EDT Education *Barriers To Learning : None evident *Teaching Method : Demonstration, Explanation Patient Education - PT Outpatient : N/A Shon PALACIO Meredith 02/11/2023 17:49 EDT Assessment PT Response to Treatment : Tolerated well PT Clinical Assessment Summary : Pt responded well to vasopneumatic treatment with decreased pain and edema following session. Shon PALACIO Meredith 02/11/2023 17:49 EDT Plan Frequency : 2 times per week *Duration : 8 Weeks *Treatments : Balance training, Manual therapy, Therapeutic exercises, Patient education, Gait training *Plan for Next Visit : progress as tolerated. Home Exercise Program/Other PT Treatment Provided : Initiated Treatment Plan/Goals Established with Patient/Caregiver : Yes Shon PALACIO Meredith 02/11/2023 17:49 EDT Time Spent with Patient - Outpatient PT Time In : 00:00 EST PT Time Out : 00:00 EST PT Therapeutic Exercise Time : 0 minutes MICA SIZER Therapeutic Exercise Units : 0 units PT Total Timed Code Treatment Units : 0 units PT Total Timed Code Tx Minutes : 0 minutes 8 Min Rule Unit Check PT OP : 0 units PT Total Treatment Time Rehab : 0 minutes 8 Min Rule Unit Difference PT OP : 0 Shon Meredith PALACIO - 02/11/2023 17:[address] [facility] Outpatient Progress Note Entered On: 02/08/2023 9:24 EDT Performed On: 02/08/2023 8:15 EDT by Abdoulaye Aguiar PT Review/Treatments Provided Total Visit Count : 41 Visit Count Reviewed? : Yes Pain Present : Yes actual or suspected pain Diagnosis : Reason for Visit: M19.171=POST TRAUMATIC ARTHRITIS OF R ANKLE, SX 01/10/23 Attending Physician : Name: STEFAN SOTO Subjective : Feels she is doing okay, [...] 10x2 x20 ea Resist or Assist : Abdoulaye Marquez PT - 02/08/2023 8:15 EDT Abdoulaye Aguiar PT - 02/08/2023 8:15 EDT Abdoulaye Aguiar PT - 02/08/2023 8:15 EDT Abdoulaye Aguiar PT - 02/08/2023 8:15 EDT Exercise 5 Exercise 6 Exercise 7 Exercise 8 Exercise : Seated Baps Standing with relaxed foot Modified tandem stand Seated Dome Repetition/Time : next 1 minute 10x2 3x10 Resist or Assist : Abdoulaye Aguiar PT - 02/08/2023 8:15 EDT Abdoulaye Aguiar PT 02/08/2023 8:15 EDT Abdoulaye Aguiar PT 02/08/2023 8:15 EDT Abdoulaye Aguiar PT 02/08/2023 8:15 EDT Exercise 9 Exercise : [...] calcaneus not everting well. Abdoulaye Aguiar PT 02/08/2023 8:15 EDT Plan Frequency : 2 [...] PT OP : 0 Abdoulaye Aguiar PT [facility]2023 [facility] Outpatient Evaluation Entered On: 02/06/2023 [...] FWB in two weeks. Abdoulaye Aguiar PT 02/06/2023 8:20 EDT Subjective Precautions : No Orders Qualified Diagnosis : Reason for Visit: M19.171=POST TRAUMATIC ARTHRITIS OF R ANKLE, SX 01/10/23 Pain Present : Yes actual or suspected pain Attending Physician : Name: STEFAN SOTO Pain/Functional Deficit Resulted From : Surgery Chronicity of Condition PT : Acute (less than 3 months) Affect/Behavior : Appropriate, Calm, Cooperative Orientation : Oriented x 4 Abdoulaye Aguiar PT - 02/06/2023 8:20 EDT Past Medical History, Hospitalizations, Surgeries History of Comorbidities,Personal Factor : No personal factors and/or comorbidities Rehab Problems and Meds Reviewed : Patient's problem and medication lists were reviewed Rehab Outpt Past Medical History : No Significant Medical History Abdoulaye Aguiar PT 02/06/2023 8:20 EDT Pain Assessment Laterality : Right Quality : Aching, Dull, Throbbing Self Report Pain : Numeric rating scale Numeric Pain Scale : 5 = Moderate pain Numeric Pain Score : 5 Abdoulaye Aguiar PT 02/06/2023 8:20 EDT Home Environment Living Environment : Home Environment No qualifying data available *Living Situation : Home Independently *Lives With : Child(ant), Spouse Lives In : Single level home 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, 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, 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 Abdoulaye Aguiar PT 02/06/2023 8:20 EDT Home Environment II Prior Functional Status Grid ADL : Independent Mobility : Independent Instrumental ADL : Independent Cognitive-Communication Skills : Independent Abdoulaye Aguiar PT 02/06/2023 13:42 EDT Living Environment : Home Environment No qualifying data available Abdoulaye Aguiar PT 02/06/2023 8:20 EDT Therapeutic Exercise Custom Therapeutic Exercise Exercise 1 Exercise 2 Exercise 4 Exercise 6 Exercise : Ankle ROM Right Towel Stretch Seated AROM (PF/DF)(Inv/Ev) Standing with relaxed foot Repetition/Time : x20 ea 20x3 KE and KF x20 ea 1 minute Cosme PT, Abdoulaye - 02/06/2023 8:20 EDT Dittrick PT, Abdoulaye - 02/06/2023 8:20 EDT Didudley PT, Abdoulaye - 02/06/2023 8:20 EDT Didudley PT, Abdoulaye - 02/06/2023 8:20 EDT LE ROM/Strength Document LE Range Degrees : Yes Cosme PT, Abdoulaye 02/06/2023 8:20 EDT Right Lower Extremity Strength Grid Ankle Dorsiflexion : 4 Ankle Plantarflexion : 4- Ankle Eversion : 4- Ankle Inversion : 3+ Cosme PT, Abdoulaye 02/06/2023 8:20 EDT LE ROM Degrees LLE Range of Motion (in degrees) Grid Left Ankle Dorsiflexion,Knee Extended Left Ankle Plantarflexion Range Motion Left Ankle Inversion Range Left Ankle Eversion Range Active : 12 55 21 22 Dittrefugio PT, Abdoulaye - 02/06/2023 8:20 EDT Ditammirick PT, Abdoulaye - 02/06/2023 8:20 EDT Cosme PT, Abdoulaye - 02/06/2023 8:20 EDT Ditammirick PT, Abdoulaye 02/06/2023 8:20 EDT RLE Range of Motion (in degrees) Grid Right Ankle Dorsiflexion,Knee Extended Right Ankle Plantarflexion Range Motion Right Ankle Inversion Range Right Ankle Eversion Range Active : -6 54 12 7 Dittrick PT, Abdoulaye - 02/06/2023 8:20 EDT Dittrick PT, Abdoulaye - 02/06/2023 8:20 EDT Dittrick PT, Abdoulaye - 02/06/2023 8:20 EDT Dittrick PT, Abdoulaye - 02/06/2023 8:20 EDT Education *Barriers To Learning : None evident *Teaching Method : Demonstration, Explanation, Printed materials Patient Education - PT Outpatient : Home exercise program - initiation Trinitytammirefugio PT, Abdoulaye 02/06/2023 13:42 EDT Falls and Education Assessment [...] Show Policy : Yes Abdoulaye Aguiar PT - 02/06/2023 13:42 EDT Assessment *Patient/Family Receptiveness : [...] Characteristics PT : Sta (more content not included)...[facility]02-24-2023 NotePT Outpatient Progress Note Entered On: 12/28/2022 13:14 EST Performed On: 12/28/2022 12:57 EST by Adboulaye Aguiar PT Review/Treatments Provided Rehab Reassessment : Reassessment Total Visit Count : 39 Visit Count Reviewed? : Yes [employer] Associate Goals Reviewed : Yes Pain Present : [...] : 8 Numeric Pain Score : 8 Trinitydudley LÓPEZErwine - 12/28/2022 12:57 EST Regional Clinical Research Associate Goals PT Outpt Pt Goal - grid Goal #1 PT Patient,Caregiver Goal : Walk normally without pain Status : Partially Met (Comment: Has episodes of significant pain due to impingement a Talocrural joint which limits her walking. [Cosme DAWN Abdoulaye - 12/28/2022 12:57 EST] ) Date : 12/28/2022 EST Cosme DAWN Abdoulaye - 12/28/2022 12:57 EST General Function Goal #1 Goal #2 Goal #3 Goal : Ambulate community distances with normal gait mechanics Return to work Ascend and descend stairs with reciprocal pattern Duration : 6 Weeks 6 Weeks 6 Weeks Status : Partially Met Not met Partially Met Date : 12/28/2022 EST (Comment: See Walking goal comment; bone cyst/impingement preventing normalization of gait. [Daphnerefugio LÓPEZ Abdoulaye - 12/28/2022 12:57 EST] ) 12/28/2022 EST 12/28/2022 EST Comment : without limitations working on 3-4 step Cosme DAWN Abdoulaye - 12/28/2022 12:57 EST Cosme DAWN Abdoulaye - 12/28/2022 12:57 EST Cosme DAWN Abdoulaye - 12/28/2022 12:57 EST Education *Barriers To Learning : None evident *Teaching Method : Explanation Patient Education - PT Outpatient : Anatomy, Etiology of current dysfunction, Home exercise program- reinforced compliance TrinityAbdoulaye bukcner PT - 12/28/2022 12:57 EST Assessment PT Clinical Assessment Summary : Patient still stuggling with impingement in anteromedial ankle. ROM for dorsiflexion has regressed because of this despite best efforts to improve this through manualtherapy and stretching. Further therapy at this point not justified, but will be needed if patient does have surgery to correct these issues. Cosme LÓPEZAbdoulaye - 12/28/2022 12:57 EST Plan Frequency : 2 times per week *Duration : 6 Weeks *Treatments : Balance training, Therapeutic exercises, Pain Management, Posture/Body mechanics training, Gait training *Plan for Next Visit : D/C with HEP in effect. May need more therapy if surgery performed to correct impingement issue. Treatment Plan/Goals Established with Patient/Caregiver : Yes Trinitytammirefugio LÓPEZAbdoulaye - 12/28/2022 12:57 EST Time Spent with Patient - Outpatient PT Time In : 09:05 EST PT Time Out : 09:45 EST PT Re-Evaluation Units, 42018 : 1 units PT Re-Evaluation Time, 27670 : 45 minutes PT Total Untimed Code Treatment Minutes : 45 minutes PT Total Treatment Time Rehab : 45 minutes Trinitydudley DAWNAbdoulaye - [facility] Progress Note Entered [...] X Comment : Meredith Menendez PTA - 12/21/2022 8:08 EST Meredith Menendez PTA - 12/21/2022 8:08 EST Shon MICA SIZER, 12/21/2022 8:08 EST Shon MICA SIZER, 12/21/2022 8:08 EST Exercise 5 Exercise 6 Exercise 7 Exercise 8 Exercise : Small knee bends for dynamic achilles stretch slant board stretch T- band Posterior Tib; Tib Anterior Gait training Repetition/Time : 10 30 x 3* 15x2 Resist or Assist : red Not Performed : X X Comment : *Knee extended and then bent shorter stride to normalize patter. Shon MICA SIZER, 12/21/2022 8:08 EST Shon MICA SIZER, 12/21/2022 8:08 EST Shon MICA SIZER, 12/21/2022 8:08 EST Shon MICA SIZER, 12/21/2022 8:08 EST Exercise 9 Exercise 10 Exercise 11 Exercise 12 Exercise : Forward step downs Half dome PF/DF, INV/EV, CW/CCW Bilateral FWD stretch LAQ/ HS curls Repetition/Time : Resist or Assist : 2.5#/green Not Performed : X Comment : 2 then 4 tibial FWD translation Shon MICA SIZER, Meredith - 12/21/2022 8:08 EST Shon MICA SIZER, 12/21/2022 8:08 EST Shon MICA SIZER, 12/21/2022 8:08 EST Shon MICA SIZER, 12/21/2022 8:08 EST Exercise 13 Exercise 14 Exercise 15 Exercise 16 Exercise : distraction and t/s and subtalar mobs Upright bike True [place] Strap Calf Stretch KE andKF Repetition/Time : 10' 30x3 Resist or Assist : grade III 3 115# Not Performed : X X X Comment : Shon MICA SIZER, Meredith - 12/21/2022 8:08 EST Shon MICA SIZER, 12/21/2022 8:08 EST Shon MICA SIZER, 12/21/2022 8:08 EST Shon MICA SIZER, 12/21/2022 8:08 EST Exercise 17 Exercise 18 Exercise 20 Exercise 21 Exercise : Half dome PWB alphabet 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, 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; athletic tape to foot to relieve PF and to soleus WS with metronome Repetition/Time : done 10' Resist or Assist : Not Performed : X Comment : Shon HAKEEM Meredith 12/21/2022 8:08 EST Shon PALACIO Meredith 12/21/2022 8:08 EST Shon PALACIO Meredith 12/21/2022 8:08 EST Shon PALACIO Meredith 12/21/2022 8:08 EST Exercise 22 Exercise : Gait trianing with metronome Repetition/Time : 15' Resist or Assist : Not Performed : X Comment : Shon HAKEEMMeredith 12/21/2022 8:08 EST Education *Barriers To Learning : None evident *Teaching Method : Demonstration, Explanation Patient Education - PT Outpatient : N/A Shon HAKEEM Meredith 12/21/2022 8:08 EST Assessment PT Response to Treatment : Tolerated well PT Clinical Assessment Summary : Reviewed HEP and POC with pt. Pt demonstrates 100% skill and comprehension with HEP. Shon PALACIO Meredith 12/21/2022 8:08 EST Plan Frequency : 2 times per week *Duration : 6 Weeks *Treatments : Balance training, Therapeutic exercises, Pain Management, Posture/Body mechanics training, Gait training *Plan for Next Visit : Discuss plan for DC, resuming after surgery. Treatment Plan/Goals Established with Patient/Caregiver : Yes Shno PALACIO Meredith 12/21/2022 8:08 EST Time Spent with Patient - Outpatient PT Time In : 00:00 EST PT Time Out : 00:00 EST PT Therapeutic Exercise Time : 0 minutes MICA SIZER Therapeutic Exercise Units : 0 units PT Total Timed Code Treatment Units : 0 units PT Total Timed Code Tx Minutes : 0 minutes 8 Min Rule Unit Check PT OP : 0 units PT Total Treatment Time Rehab : 0 minutes 8 Min Rule Unit Difference PT OP : 0 Shon PALACIO Meredith 12/21/2022 8:08 [facility] 12-28-2022 NotePT Outpatient Progress Note Entered On: [...] with increased edema. Therapeutic Exercise : Yes Shon MICA SIZER, Meredith 12/07/2022 13:29 EST Therapeutic Exercise Custom Therapeutic Exercise Exercise 1 Exercise 2 Exercise 3 Exercise 4 Exercise : NuStep joint mobs Talocrural and subtalar Anterior glides 1st MTP Slow reversals and hold relax stretch into extension of 1st MTP Repetition/Time : 5 Grade III 5' x10 Resist or Assist : 5 Not Performed : X Comment : Shon MICA SIZER, Meredith 12/07/2022 13:29 EST Shon MICA SIZER, Meredith 12/07/2022 13:29 EST Shon MICA SIZER, Meredith 12/07/2022 13:29 EST Shon MICA SIZER, Meredith 12/07/2022 13:29 EST Exercise 5 Exercise 6 Exercise 7 Exercise 8 Exercise : Small knee bends for dynamic achilles stretch slant board stretch T- band Posterior Tib; Tib Anterior Gait training Repetition/Time : 10 30 x 3* 15x2 Resist or Assist : red Not Performed : X Comment : *Knee extended and then bent shorter stride to normalize patter. Shon MICA SIZER, Meredith 12/07/2022 13:29 EST Shon MICA SIZER, Meredith 12/07/2022 13:29 EST Shon MICA SIZER, Meredith 12/07/2022 13:29 EST Shon MICA SIZER, Meredith 12/07/2022 13:29 EST Exercise 9 Exercise 10 Exercise 11 Exercise 12 Exercise : Forward step downs Half dome PF/DF, INV/EV, CW/CCW Bilateral FWD stretch LAQ/ HS curls Repetition/Time : Resist or Assist : 2.5#/green Not Performed : X Comment : 2 then 4 tibial FWD translation Shon MICA SIZER, Meredith 12/07/2022 13:29 EST Shon MICA SIZER, Meredith 12/07/2022 13:29 EST Shon MICA SIZER, [facility] 12/07/2022 13:29 EST Shon PALACIO, [facility] 12/07/2022 13:29 EST Exercise 13 Exercise 14 Exercise 15 Exercise 16 Exercise : distraction and t/s and subtalar mobs Upright bike True [place] Strap Calf Stretch KE andKF Repetition/Time : 10' 30x3 Resist or Assist : grade III 3 115# Not Performed : X X X Comment : Shon PALACIO, [facility] 12/07/2022 13:29 EST Shon PALACIO, [facility] 12/07/2022 13:29 EST Shon PALACIO, [facility] 12/07/2022 13:29 EST Shon PALACIO, [facility] 12/07/2022 13:29 EST Exercise 17 Exercise 18 Exercise 20 Exercise 21 Exercise : Half dome PWB alphabet 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, 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; athletic tape to foot to relieve PF and to soleus WS with metronome Repetition/Time : done 10' Resist or Assist : Not Performed : X Comment : Shon PALACIO, [facility] 12/07/2022 13:29 EST Shon PALACIO, [facility] 12/07/2022 13:29 EST Shon PALACIO, [facility] 12/07/2022 13:29 EST Shon PALACIO, [facility] 12/07/2022 13:29 EST Exercise 22 Exercise : Gait trianing with metronome Repetition/Time : 15' Resist or Assist : Not Performed : X Comment : Shon PALACIO [facility] 12/07/2022 13:29 EST Education *Barriers To Learning : None evident *Teaching Method : Demonstration, Explanation Patient Education - PT Outpatient : N/A Shon PALACIO [facility] 12/07/2022 13:29 EST Assessment PT Response to Treatment : Tolerated well PT Clinical Assessment Summary : Pt demonstrated improvement in normalizing gait with progressive trials this visit. Educated on avoiding overcorrection of foot placement at weight acceptace. Shon PALACIO [facility] 12/07/2022 13:29 EST Plan Frequency : 2 times per week *Duration : 6 Weeks *Treatments : Balance training, Therapeutic exercises, Pain Management, Posture/Body mechanics training, Gait training *Plan for Next Visit : continue with gait training to further normalize. Treatment Plan/Goals Established with Patient/Caregiver : Yes Meredith Menendez PTA - 12/07/2022 13:29 EST Time Spent with Patient - Outpatient PT Time In : 00:00 EST PT Time Out : 00:00 EST PT Therapeutic Exercise Time : 0 minutes MICA SIZER Therapeutic Exercise Units : 0 units PT Total Timed Code Treatment Units : 0 units PT Total Timed Code Tx Minutes : 0 minutes 8 Min Rule Unit Check PT OP : 0 units PT Total Treatment Time Rehab : 0 minutes 8 Min Rule Unit Difference PT OP : 0 PMR Chart Review : Yes Meredith Menendez PTA - [facility] Progress Note Entered On: [...] - 12/12/2022 13:19 EST Abdoulaye Aguiar PT 12/12/2022 13:19 EST Dittrick PT, Abdoulaye - 12/12/2022 13:19 EST Dittrick PT, Abdoulaye - 12/12/2022 13:19 EST Exercise 5 Exercise 6 Exercise 7 Exercise 8 Exercise : Small knee bends for dynamic achilles stretch slant board stretch T- band Posterior Tib; Tib Anterior Gait training Repetition/Time : 10 30 x 3* 15x2 Resist or Assist : red Not Performed : X X Comment : *Knee extended and then bent shorter stride to normalize patter. Dittrick PT, Abdoulaye - 12/12/2022 13:19 EST Dittrick PT, Abdoulaye - 12/12/2022 13:19 EST Dittrick PT, Abdoulaye - 12/12/2022 13:19 EST Dittrick PT, Abdoulaye - 12/12/2022 13:19 EST Exercise 9 Exercise 10 Exercise 11 Exercise 12 Exercise : Forward step downs Half dome PF/DF, INV/EV, CW/CCW Bilateral FWD stretch LAQ/ HS curls Repetition/Time : Resist or Assist : 2.5#/green Not Performed : X Comment : 2 then 4 tibial FWD translation Dittrick PT, Abdoulaye - 12/12/2022 13:19 EST Dittrick PT, Abdoulaye - 12/12/2022 13:19 EST Dittrick PT, Abdoulaye - 12/12/2022 13:19 EST Dittrick PT, Abdoulaye - 12/12/2022 13:19 EST Exercise 13 Exercise 14 Exercise 15 Exercise 16 Exercise : distraction and t/s and subtalar mobs Upright bike True [place] Strap Calf Stretch KE andKF Repetition/Time : 10' 30x3 Resist or Assist : grade III 3 115# Not Performed : X X X Comment : Dittrick PT, Abdoulaye - 12/12/2022 13:19 EST Dittrick PT, Abdoulaye - 12/12/2022 13:19 EST Dittrick PT, Abdoulaye - 12/12/2022 13:19 EST Dittrick PT, Abdoulaye - 12/12/2022 13:19 EST Exercise 17 Exercise 18 Exercise 20 Exercise 21 Exercise : Half dome PWB alphabet 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, 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; athletic tape to foot to relieve PF and to soleus WS with metronome Repetition/Time : done 10' Resist or Assist : Not Performed : X Comment : Abdoulaye Aguiar PT - 12/12/2022 13:19 EST Trinitydudley DAWN Abdoulaye - 12/12/2022 13:19 EST Daphnerefugio DAWN Abdoulaye - 12/12/2022 13:19 EST Cosme DAWN Abdoulaye - 12/12/2022 13:19 EST Exercise 22 Exercise : Gait trianing with metronome Repetition/Time : 15' Resist or Assist : Not Performed : X Comment : Abdoulaye Aguiar PT - 12/12/2022 13:19 EST Manual Therapy Manual Therapy Activity 1 Activity 2 Activity 3 Type/Technique : Myofascial/Soft tissue mobilization IASTM, Myofascial/Soft tissue mobilization Other: Cupping Region : Other: achilles, gastroc and soleus Other: plantar fascia Other: R calf and ankle Equipment/Medium : Deep prep Descriptor : 15 n10 no Cosme DAWN Abdoulaye - 12/12/2022 13:19 EST Daphnerefugio DAWN Abdoulaye - 12/12/2022 13:19 EST Daphnerefugio DAWN Abdoulaye - 12/12/2022 13:19 EST Education *Barriers To [...] to see a new doctor here at [facility] for consult regarding cyst and her options. Abdoulaye Aguiar PT 12/12/2022 13:19 EST Plan Frequency : 2 times per week *Duration : 6 Weeks *Treatments : Balance training, Therapeutic exercises, Pain Management, Posture/Body mechanics training, Gait training *Plan for Next Visit : Cont per plan, this therapist will be back end of the month (more content not included)...[facility]02-01-2023 NotePT Outpatient Progress Note Entered On: [...] to proximal tibia. Manual Therapy : Yes Abdoulaye Aguiar PT - 12/05/2022 9:02 EST Pain Assessment Pain Location : Ankle Laterality : Right Self Report Pain : Numeric rating scale Numeric Pain Scale : 6 Numeric Pain Score : 6 Abdoulaye Aguiar PT - 12/05/2022 9:02 EST Therapeutic Exercise Custom Therapeutic Exercise Exercise 1 Exercise 2 Exercise 3 Exercise 4 Exercise : NuStep joint mobs Talocrural and subtalar Anterior glides 1st MTP Slow reversals and hold relax stretch into extension of 1st MTP Repetition/Time : 5 Grade III 5' x10 Resist or Assist : 5 Not Performed : X Comment : Abdoulaye Aguiar PT - 12/05/2022 13:22 EST Abdoulaye Aguiar PT - 12/05/2022 13:22 EST Abdoulaye Aguiar PT - 12/05/2022 13:22 EST Abdoulaye Aguiar PT - 12/05/2022 13:22 EST Exercise 5 Exercise [...] to normalize patter. Abdoulaye Aguiar PT - 12/05/2022 13:22 EST Dittrick PT, Abdoulaye - 12/05/2022 13:22 EST Dittrick PT, Abdoulaye - 12/05/2022 13:22 EST Dittrick PT, Abdoulaye - 12/05/2022 13:22 EST Exercise 9 Exercise 10 Exercise 11 Exercise 12 Exercise : Forward step downs Half dome PF/DF, INV/EV, CW/CCW Bilateral FWD stretch LAQ/ HS curls Repetition/Time : Resist or Assist : 2.5#/green Not Performed : X Comment : 2 then 4 tibial FWD translation Dittrick PT, Abdoulaye - 12/05/2022 13:22 EST Dittrick PT, Abdoulaye - 12/05/2022 13:22 EST Dittrick PT, Abdoulaye - 12/05/2022 13:22 EST Dittrick PT, Abdoulaye - 12/05/2022 13:22 EST Exercise 13 Exercise 14 Exercise 15 Exercise 16 Exercise : distraction and t/s and subtalar mobs Upright bike True [place] Strap Calf Stretch KE andKF Repetition/Time : 10' 30x3 Resist or Assist : grade III 3 115# Not Performed : X X X Comment : Dittrick PT, Abdoulaye - 12/05/2022 13:22 EST Dittrick PT, Abdoulaye - 12/05/2022 13:22 EST Dittrick PT, Abdoulaye - 12/05/2022 13:22 EST Dittrick PT, Abdoulaye - 12/05/2022 13:22 EST Exercise 17 Exercise 18 Exercise 20 Exercise 21 Exercise : Half dome PWB alphabet 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, 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; athletic tape to foot to relieve PF and to soleus WS with metronome Repetition/Time : done 10' Resist or Assist : Not Performed : X Comment : Dittrick PT, Abdoulaye - 12/05/2022 13:22 EST Dittrick PT, Abdoulaye - 12/05/2022 13:22 EST Dittrick PT, Abdoulaye - 12/05/2022 13:22 EST Dittrick PT, Abdoulaye - 12/05/2022 13:22 EST Exercise [...] DAWN Abdoulaye - 12/05/2022 13:22 EST Cosme DAWN Abdoulaye - 12/05/2022 13:22 EST Modalities Modalities Activity 1 Activity 2 Modality : Iontophoresis Ice massage Body Region : superior-ant talus kaleb Settings : 14 hour patch Trinitydudley DAWN Abdoulaye 12/05/2022 13:22 EST Cosme DAWN Abdoulaye - 12/05/2022 13:22 EST Education *Barriers To Learning : None evident *Teaching Method : Demonstration, Explanation Patient Education - PT Outpatient : Home exercise program - progression/modification Trinitydudley LÓPEZ Abdoulaye 12/05/2022 13:22 EST Assessment PT Clinical Assessment Summary : Sebastián well; as patient was pretty sore in talo- crural joint, Ice massage and ionto done to superior talar area; still worked on calf to mobiize and stretch. Patient able to walk better after treatment. Trinitydudley DAWN Abdoulaye 12/05/2022 13:22 EST Plan Frequency : 2 times per week *Duration : 6 Weeks *Treatments : Balanc (more content not included)...[facility]02-01-2023 NotePT Outpatient Progress Note Entered On: [...] Exercise : Yes Manual Therapy : Yes Shon MICA SIZER, Meredith - 11/30/2022 16:41 EST Therapeutic Exercise Custom Therapeutic Exercise Exercise 1 Exercise 2 Exercise 3 Exercise 4 Exercise : NuStep joint mobs Talocrural and subtalar Anterior glides 1st MTP Slow reversals and hold relax stretch into extension of 1st MTP Repetition/Time : 5 Grade III 5' x10 Resist or Assist : 5 Not Performed : X Comment : Shon MICA SIZER, Meredith - 11/30/2022 16:41 EST Shon MICA SIZER, Meredith 11/30/2022 16:41 EST Shon MICA SIZER, Meredith - 11/30/2022 16:41 EST Shon MICA SIZER, 11/30/2022 16:41 EST Exercise 5 Exercise 6 Exercise 7 Exercise 8 Exercise : Small knee bends for dynamic achilles stretch slant board stretch Eccentric T-band Posterior Tib Gait training Repetition/Time : 10 30 x 3* 10x2 HEP Resist or Assist : red Not Performed : X X Comment : *Knee extended and then bent shorter stride to normalize patter. Shon MICA SIZER, Meredith - 11/30/2022 16:41 EST Shon MICA SIZER, Meredith - 11/30/2022 16:41 EST Shon MICA SIZER, Meredith - 11/30/2022 16:41 EST Shon MICA SIZER, Meredith - 11/30/2022 16:41 EST Exercise 9 Exercise 10 Exercise 11 Exercise 12 Exercise : Forward step downs Half dome PF/DF, INV/EV, CW/CCW Bilateral FWD stretch LAQ/ HS curls Repetition/Time : Resist or Assist : 2.5#/green Not Performed : X Comment : 2 then 4 tibial FWD translation Shon MICA SIZER, Meredith - 11/30/2022 16:41 EST Shon MICA SIZER, Meredith 11/30/2022 16:41 EST Shon MICA SIZER, Meredith 11/30/2022 16:41 EST Shon MICA SIZER, Meredith - 11/30/2022 16:41 EST Exercise 14 Exercise 15 Exercise 16 Exercise 17 Exercise : Upright bike True [place] Strap Calf Stretch KE and KF Half dome PWB alphabet Repetition/Time : 30x3 Resist or Assist : 3 115# Not Performed : X X X Comment : Shon PALACIO, [facility] 11/30/2022 16:41 EST Shon MICA SIZER, [facility] 11/30/2022 16:41 EST Shon MICA SIZER, [facility] 11/30/2022 16:41 EST Shon MICA SIZER, Meredith 11/30/2022 16:41 EST Exercise 18 Exercise 20 Exercise 21 Exercise 22 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 11/30/2022 16:41 EST Shon MICA SIZER, [facility] 11/30/2022 16:41 EST Manual Therapy Manual Therapy Activity 1 Activity 2 Activity 3 Type/Technique : Myofascial/Soft tissue mobilization IASTM, Myofascial/Soft tissue mobilization Other: Cupping Region : Other: achilles, gastroc and soleus Other: plantar fascia Other: R calf and ankle Equipment/Medium : Deep prep Descriptor : 10 Shon PALACIO, [facility] 11/30/2022 16:[address] [facility] 11/30/2022 16:41 EST Shon MICA SIZER, [facility] 11/30/2022 16:41 EST Education *Barriers To Learning : None evident *Teaching Method : Demonstration, Explanation Patient Education - PT Outpatient : [facility]41 EST Assessment PT Response to Treatment : Tolerated well PT Clinical Assessment Summary : Pt demonstrated significant improvement in gait mechanics this session. Pt was able to keep symmetrical timing of stride in sync with metronome beats. [facility] 11/30/2022 16:41 EST Plan Frequency : 2 times per week *Duration : 6 Weeks *Treatments : Balance training, Therapeutic exercises, Pain Management, Posture/Body mechanics training, Gait training *Plan for Next Visit : Continue gait training. Treatment Plan/Goals Established with Patient/Caregiver : Yes Meredith Menendez PTA - 11/30/2022 16:41 EST Time Spent with Patient - Outpatient PT Time In : 00:00 EST PT Time Out : 00:00 EST PT Therapeutic Exercise Time : 0 minutes MICA SIZER Therapeutic Exercise Units : 0 units PT Total Timed Code Treatment Units : 0 units PT Total Timed Code Tx Minutes : 0 minutes 8 Min Rule Unit Check PT OP : 0 units PT Total Treatment Time Rehab : 0 minutes 8 Min Rule Unit Difference PT OP : 0 Meredith Menendez PTA - [facility] Out[facility] Progress Note Entered On: [...] X Comment : Cosme DAWN Abdoulaye - 11/28/2022 8:57 EST Dittrick PT, Abdoulaye - 11/28/2022 8:57 EST Dittrick PT, Abdoulaye - 11/28/2022 8:57 EST Dittrick PT, Abdoulaye - 11/28/2022 8:57 EST Exercise 5 Exercise 6 Exercise 7 Exercise 8 Exercise : Small knee bends for dynamic achilles stretch slant board stretch Eccentric T-band Posterior Tib Gait training Repetition/Time : 10 30 x 3* 10x2 HEP Resist or Assist : red Not Performed : X X Comment : *Knee extended and then bent shorter stride to normalize patter. 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; athletic tape to foot to relieve PF and to soleus WS with metronome Gait trianing with metronome Repetition/Time : done 10' 15' Resist or Assist : Not Performed : X X Comment : Abdoulaye Aguiar PT - 11/28/2022 8:57 EST Abdoulaye Aguiar PT - 11/28/2022 8:57 EST Abdoulaye Aguiar PT 11/28/2022 8:57 EST Abdoulaye Aguiar PT 11/28/2022 8:57 EST Manual Therapy Manual Therapy Activity 1 Activity 2 Activity 3 Type/Technique : Myofascial/Soft tissue mobilization IASTM, Myofascial/Soft tissue mobilization Other: Cupping Region : Other: achilles, gastroc and soleus Other: plantar fascia Other: R calf and ankle Equipment/Medium : Deep prep Descriptor : 15 10 Abdoulaye Aguiar PT 11/28/2022 8:57 EST Abdoulaye Aguiar PT 11/28/2022 8:57 EST Abdoulaye Aguiar PT 11/28/2022 8:57 EST Modalities Modalities Activity 1 Modality : Iontophoresis Body Region : superior-ant med mall Settings : 14 hour patch Abdoulaye Aguiar PT 11/28/2022 8:57 EST Taping/Bandaging/Strapping Taping/Bandaging/Strapping Grid Activity 1 Activity 2 Technique : Adhesive taping Adhesive taping Rationale : Reduce/Correct limitations/deformities Pain management, Reduce/Correct limitations/deformities Region : Other: soleus and gastroc Right foot Tape Type : Kinesiotape Athletic tape Abdoulaye Aguiar PT - 11/28/2022 8:57 EST Abdoulaye Aguiar PT 11/28/2022 8:57 EST Education *Barriers To Learning : None evident *Teaching Method : Explanation Patient Education - PT Outpatient : Anatomy, Body mechanics Abdoulaye Aguiar PT 11/28/2022 8:57 EST Assessment PT Clinical Assessment Summary : Sebastián well; patient had many questions regarding next step regardingbone cyst; wants to pursue 2nd opinion before having cyst worked on. Used kinesiotape to reduce stress on achilles and taping of foot for fascia. Abdoulaye Aguiar PT - 11/28/2022 8:57 EST Plan (more content not included)...[facility]01-25-2023 NotePT Outpatient Progress Note Entered On: [...] : Name: FRANCIA COLLAZO PTA, Paula - 11/23/2022 17:22 EST Therapeutic Exercise Custom Therapeutic Exercise Exercise 1 Exercise 2 Exercise 3 Exercise 4 Exercise : NuStep joint mobs Talocrural and subtalar Anterior glides 1st MTP Slow reversals and hold relax stretch into extension of 1st MTP Repetition/Time : 5 Grade III 5' x10 Resist or Assist : 5 Not Performed : X Comment : Meredith Menendez PTA - 11/27/2022 13:05 EST Meredith Menendez PTA - 11/27/2022 13:05 EST Meredith Menendez PTA - 11/27/2022 13:05 EST Meredith Menendez PTA - 11/27/2022 13:05 EST Exercise 5 Exercise 6 Exercise 7 Exercise 8 Exercise : Small knee bends for dynamic achilles stretch slant board stretch Eccentric T-band Posterior Tib Gait training Repetition/Time : 10 30 x 3* 10x2 HEP Resist or Assist : red Not Performed : X X Comment : *Knee extended and then bent shorter stride to normalize patter. Meredith Menendez PTA - 11/27/2022 13:05 EST Meredith Menendez PTA - 11/27/2022 13:05 EST Meredith Menendez PTA 11/27/2022 13:05 EST Shon MICA SIZER, Meredith - 11/27/2022 13:05 EST Exercise 9 Exercise 10 Exercise 11 Exercise 12 Exercise : Forward step downs Half dome PF/DF, INV/EV, CW/CCW Bilateral FWD stretch LAQ/ HS curls Repetition/Time : Resist or Assist : 2.5#/green Not Performed : X Comment : 2 then 4 tibial FWD translation Shon MICA SIZER, Meredith - 11/27/2022 13:05 EST Shon MICA SIZER, Meredith - 11/27/2022 13:05 EST Shon MICA SIZER, Meredith - 11/27/2022 13:05 EST Shon MICA SIZER, Meredith - 11/27/2022 13:05 EST Exercise 14 Exercise 15 Exercise 16 Exercise 17 Exercise : Upright bike True [place] Strap Calf Stretch KE and KF Half dome PWB alphabet Repetition/Time : 30x3 Resist or Assist : 3 115# Not Performed : X X X Comment : Shon MICA SIZER, Meredith - 11/27/2022 13:05 EST Shon MICA SIZER, Meredith - 11/27/2022 13:05 EST Shon MICA SIZER, Meredith - 11/27/2022 13:05 EST Shon MICA SIZER, Meredith - 11/27/2022 13:05 EST Exercise 18 Exercise 20 Exercise 21 Exercise 22 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, 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; athletic tape to foot to relieve PF and to soleus WS with metronome Gait trianing with metronome Repetition/Time : done 10' 15' Resist or Assist : Not Performed : Comment : Shon MICA SIZER, Meredith - 11/27/2022 13:05 EST Shon MICA SIZER, Meredith 11/27/2022 13:05 EST Shon MICA SIZER, Meredith - 11/27/2022 13:05 EST Shon MICA SIZER, Meredith - 11/27/2022 13:05 EST Manual Therapy Manual Therapy Activity 1 Activity 2 Activity 3 Type/Technique : Myofascial/Soft tissue mobilization IASTM, Myofascial/Soft tissue mobilization Other: Cupping Region : Other: achilles, gastroc and soleus Other: plantar fascia Other: R calf and ankle Equipment/Medium : Deep prep Descriptor : 15 Shon MICA SIZER, Meredith 11/27/2022 13:05 EST Shon PALACIO Meredith - 11/27/2022 13:05 EST Shon HAKEEM Meredith 11/27/2022 13:05 EST Education *Barriers To Learning : None evident *Teaching Method : Demonstration, Explanation Patient Education - PT Outpatient : N/A Meredith Menendez PTA - 11/27/2022 13:05 EST Assessment PT Response to Treatment : Tolerated well PT Clinical Assessment Summary : Pt educated on focusing on gait mechanics and strengthening techniques. Shon HAKEEM Meredith 11/27/2022 13:05 EST Plan Frequency : 2 times per week *Duration : 6 Weeks *Treatments : Balance training, Therapeutic exercises, Pain Management, Posture/Body mechanics training, Gait training *Plan for Next Visit : Assess HEP Treatment Plan/Goals Established with Patient/Caregiver : Yes Shonmila PALACIO Meredith - 11/27/2022 13:05 EST Time Spent with Patient - Outpatient PT Time In : 00:00 EST PT Time Out : 00:00 EST PT Therapeutic Exercise Time : 0 minutes MICA SIZER Therapeutic Exercise Units : 0 units PT Total Timed Code Treatment Units : 0 units PT Total Timed Code Tx Minutes : 0 minutes 8 Min Rule Unit Check PT OP : 0 units PT Total Treatment Time Rehab : 0 minutes 8 Min Rule Unit Difference PT OP : 0 [facility]on HA[facility]EM [facility]eredith [facility] Note Entered On: 10/19/2022 17:07 EST Performed On: 10/19/2022 17:06 EST by Meredith Menendez PTA Review/Treatments Provided Subjective : Pt is experiencing more pain than usual today. Pt reports she has purchased shoes she feels may improve her gait; will assess Therapeutic Exercise : Yes Manual Therapy : Yes Shon PTAMeredith - 10/22/2022 18:43 EST Total Visit Count [...] KF 3 Attending Physician : Name: FRANCIA COLLAZOereaux MICA SIZER, [facility] 10/19/2022 17:06 EST Therapeutic Exercise Custom Therapeutic Exercise Exercise 1 Exercise 2 Exercise 3 Exercise 4 Exercise : NuStep joint mobs Talocrural and subtalar Anterior glides 1st MTP Slow reversals and hold relax stretch into extension of 1st MTP Repetition/Time : Grade III 5' x10 Resist or Assist : Not Performed : X Comment : not performed 09/21/22 Shon MICA SIZER, [facility] 10/22/2022 18:43 EST Shon MICA SIZER, [facility] 10/22/2022 18:43 EST Shon MICA SIZER, [facility] 10/22/2022 18:43 EST Shon MICA SIZER, [facility] 10/22/2022 18:43 EST Exercise 5 Exercise 6 Exercise 7 Exercise 8 Exercise : Small knee bends for dynamic achilles stretch slant board stretch Eccentric T-band Posterior Tib Gait training Repetition/Time : 10 30 x 3* 10x2 HEP Resist or Assist : red Not Performed : Comment : *Knee extended and then bent shorter stride to normalize patter. Shon MICA SIZER, [facility] 10/22/2022 18:43 EST Shon MICA SIZER, [facility] 10/22/2022 18:43 EST Shon MICA SIZER, [facility] 10/22/2022 18:43 EST Shon MICA SIZER, [facility] 10/22/2022 18:43 EST Exercise 9 Exercise 10 Exercise 11 Exercise 12 Exercise : Forward step downs Half dome PF/DF, INV/EV, CW/CCW Bilateral FWD stretch LAQ/ HS curls Repetition/Time : Resist or Assist : 2.5#/green Not Performed : Comment : 2 then 4 tibial FWD translation Shon MICA SIZER, [facility] 10/22/2022 18:43 EST Shon MICA SIZER, [facility] 10/22/2022 18:43 EST Shon MICA SIZER, [facility] 10/22/2022 18:43 EST Shon MICA SIZER, [facility] 10/22/2022 18:43 EST Exercise 14 Exercise 15 Exercise 16 Exercise 17 Exercise : Upright bike True [place] Strap Calf Stretch KE and KF Half dome PWB alphabet Repetition/Time : 30x3 Resist or Assist : 3 115# Not Performed : Comment : Shon MICA SIZER, Meredith 10/22/2022 18:43 EST Shon PALACIO, [facility] 10/22/2022 18:43 EST Shon PALACIO, [facility] 10/22/2022 18:43 EST Shon PALACIO, [facility] 10/22/2022 18:43 EST Exercise 18 Exercise 20 Exercise 22 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 Repetition/Time : 15' Resist or Assist : Not Performed : Comment : Shon PALACIO, [facility] 10/22/2022 18:43 EST Shon PALACIO, [facility] 10/22/2022 18:43 EST Shon PALACIO, [facility] 10/22/2022 18:43 EST Manual Therapy Manual Therapy Activity 1 Type/Technique : Myofascial/Soft tissue mobilization Region : Other: achilles, gastroc and soleus Equipment/Medium : Deep prep Descriptor : 15 Shon PALACIO, [facility] 10/22/2022 18:43 EST Education *Barriers To Learning : None evident *Teaching Method : Demonstration, Explanation Patient Education - PT Outpatient : N/A Shon PALACIO [facility] 10/22/2022 18:43 EST Assessment PT Response to Treatment : Tolerated well PT Clinical Assessment Summary : Unseccessful with chosing a shoe for improved gait; bases were alltoo thick, causing supination. Pt advised to purchase minimal barefoot shoes. Shon PALACIO [facility] 10/22/2022 18:43 EST Plan Frequency : 2 times per week *Duration : 6 Weeks *Treatments : Balance training, Therapeutic exercises, Pain Management, Posture/Body mechanics training, Gait training *Plan for Next Visit : assess shoes after purchase. Treatment Plan/Goals Established with Patient/Caregiver : Yes Shon PALACIO [facility] 10/22/2022 18:43 EST Time Spent with Patient - Outpatient PT Time In : 00:00 EST PT Time Out : 00:00 EST PT Therapeutic Exercise Time : 0 minutes MICA SIZER Therapeutic Exercise Units : 0 units PT Total Timed Code Treatment Units : 0 units PT Total Timed Code Tx Minutes : 0 minutes 8 Min Rule Unit Check PT OP : 0 units PT Total Treatment Time Rehab : 0 minutes 8 Min Rule Unit Difference PT OP : 0 ShonNew zaragoza PTAa - 10/22/2022 18:43 [facility] 11-16-2022 NotePT Outpatient Progress Note Entered On: [...] Modalities : Yes Meredith Menendez PTA - 10/22/2022 11:06 EST Therapeutic Exercise Custom Therapeutic Exercise Exercise 1 Exercise 2 Exercise 3 Exercise 4 Exercise : NuStep joint mobs Talocrural and subtalar Anterior glides 1st MTP Slow reversals and hold relax stretch into extension of 1st MTP Repetition/Time : Grade III 5' x10 Resist or Assist : Not Performed : X Comment : not performed 09/21/22 Meredith Menendez PTA - 10/22/2022 11:06 EST Meredith Menendez PTA - 10/22/2022 11:06 EST Meredith Menendez PTA - 10/22/2022 11:06 EST Meredith Menendez PTA - 10/22/2022 11:06 EST Exercise 5 Exercise 6 Exercise 7 Exercise 8 Exercise : Small knee bends for dynamic achilles stretch slant board stretch Eccentric T-band Posterior Tib Gait training Repetition/Time : 10 30 x 3* 10x2 HEP Resist or Assist : red Not Performed : Comment : *Knee extended and then bent shorter stride to normalize patter. Meredith Menendez PTA - 10/22/2022 11:06 EST Meredith Menendez PTA - 10/22/2022 11:06 EST Meredith Menendez PTA - 10/22/2022 11:06 EST Shon MICA SIZER, [facility] 10/22/2022 11:06 EST Exercise 9 Exercise 10 Exercise 11 Exercise 12 Exercise : Forward step downs Half dome PF/DF, INV/EV, CW/CCW Bilateral FWD stretch LAQ/ HS curls Repetition/Time : Resist or Assist : 2.5#/green Not Performed : Comment : 2 then 4 tibial FWD translation Shon MICA SIZER, [facility] 10/22/2022 11:06 EST Shon MICA SIZER, [facility] 10/22/2022 11:06 EST Shon MICA SIZER, [facility] 10/22/2022 11:06 EST Shon MICA SIZER, [facility] 10/22/2022 11:06 EST Exercise 14 Exercise 15 Exercise 16 Exercise 17 Exercise : Upright bike True [place] Strap Calf Stretch KE and KF Half dome PWB alphabet Repetition/Time : 30x3 Resist or Assist : 3 115# Not Performed : Comment : Shon MICA SIZER, [facility] 10/22/2022 11:06 EST Shon [facility], [facility] 10/22/2022 11:06 EST Shon MICA SIZER, [facility] 10/22/2022 11:06 EST Hson MICA SIZER, [facility] 10/22/2022 11:06 EST Exercise 18 Exercise 20 Exercise 22 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, 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; athletic tape to foot to relieve PF and to soleus Gait trianing with B walking sticks Repetition/Time : done Resist or Assist : Not Performed : Comment : Shon MICA SIZER, [facility] 10/22/2022 11:06 EST Shon MICA SIZER, [facility] 10/22/2022 11:06 EST Shon MICA SIZER, [facility] 10/22/2022 11:06 EST Manual Therapy Manual Therapy Activity 1 Type/Technique : Myofascial/Soft tissue mobilization Region : Other: achilles, gastroc and soleus Equipment/Medium : Deep prep Descriptor : [facility]22 11:06 EST Modalities Modalities Activity 1 Activity 2 Activity 3 Modality : Iontophoresis Ultrasound Hot packs Body Region : Post Tib under MMall Post Tib L soleus and ankle Settings : 14 hr patch 1.5 w/cm, 50% Minutes : 10 minutes Shon MICA SIZER, Meredith 10/22/2022 11:06 EST Shonmila PALACIO Meredith 10/22/2022 11:06 EST Shon PALACIO Meredith 10/22/2022 11:06 EST Education *Barriers To Learning : None evident *Teaching Method : Demonstration, Explanation Patient Education - PT Outpatient : N/A Shon PALACIO Meredtih 10/22/2022 11:06 EST Assessment PT Response to Treatment : Tolerated well PT Clinical Assessment Summary : Pt responded well to today's treatment, with improved mobility anddecreased pain. Able to ambulate without cane upon exit. Shon PALACIO Meredith 10/22/2022 11:06 EST Plan Frequency : 2 times per week *Duration : 6 Weeks *Treatments : Balance training, Therapeutic exercises, Pain Management, Posture/Body mechanics training, Gait training *Plan for Next Visit : Assess new shoes Treatment Plan/Goals Established with Patient/Caregiver : Yes Shon PALACIO Meredith 10/22/2022 11:06 EST Time Spent with Patient - Outpatient PT Time In : 00:00 EST PT Time Out : 00:00 EST PT Therapeutic Exercise Time : 0 minutes MICA SIZER Therapeutic Exercise Units : 0 units PT Total Timed Code Treatment Units : 0 units PT Total Timed Code Tx Minutes : 0 minutes 8 Min Rule Unit Check PT OP : 0 units PT Total Treatment Time Rehab : 0 minutes 8 Min Rule Unit Diff (more content not included)...[facility]01-13-2023 NotePT Outpatient Progress Note Entered On: [...] in the evening. Therapeutic Exercise : Yes Shon PALACIO, Meredith 2022 10:16 EST Therapeutic Exercise Custom Therapeutic Exercise Exercise 1 Exercise 2 Exercise 3 Exercise 4 Exercise : NuStep joint mobs Talocrural and subtalar Anterior glides 1st MTP Slow reversals and hold relax stretch into extension of 1st MTP Repetition/Time : Grade III 5' x10 Resist or Assist : Not Performed : X Comment : Shon PALACIO, Meredith 2022 10:16 EST Shon PALACIO, Meredith 2022 10:16 EST Shon MICA SIZER, Meredith 2022 10:16 EST Shon MICA SIZER, Meredith 2022 10:16 EST Exercise 5 Exercise 6 Exercise 7 Exercise 8 Exercise : Small knee bends for dynamic achilles stretch slant board stretch Eccentric T-band Posterior Tib Gait training Repetition/Time : 10 30 x 3* 10x2 HEP Resist or Assist : red Not Performed : X X Comment : *Knee extended and then bent shorter stride to normalize patter. Shon PALACIO, Meredith 2022 10:16 EST Shon PALACIO, Meredith 2022 10:16 EST Shon MICA SIZER, Meredith 2022 10:16 EST Shon PALACIO, Meredith 2022 10:16 EST Exercise 9 Exercise 10 Exercise 11 Exercise 12 Exercise : Forward step downs Half dome PF/DF, INV/EV, CW/CCW Bilateral FWD stretch LAQ/ HS curls Repetition/Time : Resist or Assist : 2.5#/green Not Performed : X Comment : 2 then 4 tibial FWD translation Shon PALACIO, Meredith 2022 10:16 EST Shon MICA SIZER, Mreedith 2022 10:16 EST Shon MICA SIZER, Meredith 2022 10:16 EST Shon MICA SIZER, Meredith 2022 10:16 EST Exercise 14 Exercise 15 Exercise 16 Exercise 17 Exercise : Upright bike True [place] Strap Calf Stretch KE and KF Half dome PWB alphabet Repetition/Time : 30x3 Resist or Assist : 3 115# Not Performed : X X Comment : Shon PALACIO, Meredith 2022 10:16 EST Shon PALACIO, Meredith 2022 10:16 EST Shon MICA SIZER, Meredith 2022 10:16 EST Shon PALACIO, Meredith 2022 10:16 EST Exercise 18 Exercise 20 Exercise 21 Exercise 22 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, 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; athletic tape to foot to relieve PF and to soleus WS with metronome Gait trianing with metronome Repetition/Time : done 10' 15' Resist or Assist : Not Performed : Comment : Shon New PALACIOa 2022 10:16 EST Shon MICA SIZER, Meredith 2022 10:16 EST Shon PALACIO Meredith 2022 10:16 EST Shon MICA SIZER, Meredith 2022 10:16 EST Education *Barriers To Learning : None evident *Teaching Method : Demonstration, Explanation Patient Education - PT Outpatient : Home exercise program - progression/modification Shon HAKEEM Meredith 2022 10:16 EST Assessment PT Response to Treatment : Tolerated well PT Clinical Assessment Summary : Educated pt on improving gait symmetry with use of metronome nelson. Standing WS with emphasis on weight acceptance on R with hip shift to improved alignment and retrainproprioception. Shon PTA, Meredith 2022 10:16 EST Plan Frequency : 2 times per week *Duration : 6 Weeks *Treatments : Balance training, Therapeutic exercises, Pain Management, Posture/Body mechanics training, Gait training *Plan for Next Visit : continue gait work Treatment Plan/Goals Established with Patient/Caregiver : Yes Shonmila PALACIO Meredith 2022 10:16 EST Time Spent with Patient - Outpatient PT Time In : 00:00 EST PT Time Out : 00:00 EST PT Therapeutic Exercise Time : 0 minutes MICA SIZER Therapeutic Exercise Units : 0 units PT Total Timed Code Treatment Units : 0 units PT Total Timed Code Tx Minutes : 0 minutes 8 Min Rule Unit Check PT OP : 0 units PT Total Treatment Time Rehab : 0 minutes 8 Min Rule Unit Difference PT OP : 0 New Menendez PTAa 2022 10:16 [facility] 11-16-2022 NotePT Outpatient Progress Note Entered On: [...] Modalities : Yes Abdoulaye Aguiar PT - 11/16/2022 9:01 EST Pain Assessment Pain Location : Heel Laterality : Right Self Report Pain : Numeric rating scale Numeric Pain Scale : 5 = Moderate pain Numeric Pain Score : 5 Abdoulaye Aguiar PT - 11/16/2022 9:01 EST Therapeutic Exercise Custom Therapeutic Exercise Exercise 1 Exercise 2 Exercise 3 Exercise 4 Exercise : NuStep joint mobs Talocrural and subtalar Anterior glides 1st MTP Slow reversals and hold relax stretch into extension of 1st MTP Repetition/Time : 5 Grade III 5' x10 Resist or Assist : 5 Not Performed : X Comment : Abdoulaye Aguiar PT - 11/16/2022 9:01 EST Abdoulaye Aguiar PT - 11/16/2022 9:01 EST Abdoulaye Aguiar PT - 11/16/2022 9:01 EST Abdoulaye Aguiar PT - 11/16/2022 9:01 EST Exercise 5 Exercise 6 Exercise 7 Exercise 8 Exercise : Small knee bends for dynamic achilles stretch slant board stretch Eccentric T-band Posterior Tib Gait training Repetition/Time : 10 30 x 3* 10x2 HEP Resist or Assist : red Not Performed : X X Comment : *Knee extended and then bent shorter stride to normalize patter. Abdoulaye Augiar PT - 11/16/2022 9:01 EST Abdoulaye Aguiar PT - 11/16/2022 9:01 EST Dittrick PT, Abdoulaye - 11/16/2022 9:01 EST Dittrick PT, Abdoulaye - 11/16/2022 9:01 EST Exercise 9 Exercise 10 Exercise 11 Exercise 12 Exercise : Forward step downs Half dome PF/DF, INV/EV, CW/CCW Bilateral FWD stretch LAQ/ HS curls Repetition/Time : Resist or Assist : 2.5#/green Not Performed : X Comment : 2 then 4 tibial FWD translation Ditammirick PT, Abdoulaye - 11/16/2022 9:01 EST Dittrick PT, Abdoulaye - 11/16/2022 9:01 EST Dittrick PT, Abdoulaye - 11/16/2022 9:01 EST Dittrick PT, Abdoulaye - 11/16/2022 9:01 EST Exercise 14 Exercise 15 Exercise 16 Exercise 17 Exercise : Upright bike True [place] Strap Calf Stretch KE and KF Half dome PWB alphabet Repetition/Time : 30x3 Resist or Assist : 3 115# Not Performed : X X X Comment : Cosme PT, Abdoulaye - 11/16/2022 9:01 EST Dittrick PT, Abdoulaye - 11/16/2022 9:01 EST Dittrick PT, Abdoulaye - 11/16/2022 9:01 EST Dittrick PT, Abdoulaye - 11/16/2022 9:01 EST Exercise 18 Exercise 20 Exercise 21 Exercise 22 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, 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; athletic tape to foot to relieve PF and to soleus WS with metronome Gait trianing with metronome Repetition/Time : done 10' 15' Resist or Assist : Not Performed : Comment : Daphnerick PT, Abdoulaye - 11/16/2022 9:01 EST Dittrick PT, Abdoulaye - 11/16/2022 9:01 EST Dittrick PT, Abdoulaye - 11/16/2022 9:01 EST Dittrick PT, Abdoulaye - 11/16/2022 9:01 EST Manual Therapy Manual Therapy Activity 1 Activity 2 Activity 3 Type/Technique : Myofascial/Soft tissue mobilization IASTM, Myofascial/Soft tissue mobilization Other: Cupping Region : Other: achilles, gastroc and soleus Other: plantar fascia Other: R calf and ankle Equipment/Medium : Deep prep Descriptor : 15 Trinitytammirefugio DAWNErwine - 11/16/2022 9:01 EST Cosme DAWN Abdoulaye - 11/16/2022 9:01 EST Cosme DAWN Abdoulaye - 11/16/2022 9:01 EST Modalities Modalities Activity 1 Modality : Iontophoresis Body Region : superior-ant med mall Settings : 14 hour patch Minutes : 10 minutes Cosme DAWN Abdoulaye - 11/16/2022 9:01 EST Education *Barriers To Learning [...] mobs, ex and ionto to involved area. Cosme DAWN Abdoulaye - 11/16/2022 9:01 EST Plan Frequency : 2 times per week *Duration : 6 Weeks *Treatments : Balance training, Therapeutic exercises, Pain Management, Posture/Body mechanics training, Gait training *Plan for Next Visit : Cont per poc, focusing tay on mobilizing and lengthening calf tay soleus Treatment Plan/Goals Established with Patient/Caregiver : Yes Cosme DAWN Abdoulaye - 11/16/2022 9:01 EST Time Spent with Patient - Outpatient PT Time In : 09:02 EST PT Time Out : 09:47 EST PT Ther (more content not included)...[facility]01-13-2023 NotePT Outpatient Progress Note Entered On: [...] 3 Attending Physician : Name: FRANCIA COLLAZO MICA SIZER, Meredith 11/09/2022 9:50 EST Subjective : Pt was very sore and fatigued after last visit but feels it was a significant progression towards normalizing gait. Has been working on symmetrical stepping but pain is limiting. has returned to use of cane, but is maintaining work on WS and improved pattern. Shon MICA SIZER, Meredith - 11/09/2022 17:23 EST Therapeutic Exercise : Yes Shon MICA SIZER, Meredith - 11/09/2022 9:50 EST Therapeutic Exercise Custom Therapeutic Exercise Exercise 1 Exercise 2 Exercise 3 Exercise 4 Exercise : NuStep joint mobs Talocrural and subtalar Anterior glides 1st MTP Slow reversals and hold relax stretch into extension of 1st MTP Repetition/Time : 5 Grade III 5' x10 Resist or Assist : 5 Not Performed : X X Comment : Shon MICA SIZER, Meredith 11/09/2022 9:50 EST Shon MICA SIZER, Meredith 11/09/2022 9:50 EST Shon MICA SIZER, Meredith 11/09/2022 9:50 EST Shon MICA SIZER, Meredith 11/09/2022 9:50 EST Exercise 5 Exercise 6 Exercise 7 Exercise 8 Exercise : Small knee bends for dynamic achilles stretch slant board stretch Eccentric T-band Posterior Tib Gait training Repetition/Time : 10 30 x 3* 10x2 HEP Resist or Assist : red Not Performed : X X Comment : *Knee extended and then bent shorter stride to normalize patter. Shon MICA SIZER, Meredith 11/09/2022 9:50 EST Shon MICA SIZER, Meredith 11/09/2022 9:50 EST Shon MICA SIZER, Meredith 11/09/2022 9:50 EST Shon MICA SIZER, Meredith 11/09/2022 9:50 EST Exercise 9 Exercise 10 Exercise 11 Exercise 12 Exercise : Forward step downs Half dome PF/DF, INV/EV, CW/CCW Bilateral FWD stretch LAQ/ HS curls Repetition/Time : Resist or Assist : 2.5#/green Not Performed : X Comment : 2 then 4 tibial FWD translation Shon MICA SIZER, Meredith 11/09/2022 9:50 EST Shon MICA SIZER, Meredith - 11/09/2022 9:50 EST Shon MICA SIZER, 11/09/2022 9:50 EST Shon MICA SIZER, 11/09/2022 9:50 EST Exercise 14 Exercise 15 Exercise 16 Exercise 17 Exercise : Upright bike True [place] Strap Calf Stretch KE and KF Half dome PWB alphabet Repetition/Time : 30x3 Resist or Assist : 3 115# Not Performed : X X Comment : Shon MICA SIZER, Meredith - 11/09/2022 9:50 EST Shon MICA SIZER, Meredith - 11/09/2022 9:50 EST Shon MICA SIZER, Meredith - 11/09/2022 9:50 EST Shon MICA SIZER, 11/09/2022 9:50 EST Exercise 18 Exercise 20 Exercise 21 Exercise 22 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, 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; athletic tape to foot to relieve PF and to soleus WS with metronome Gait trianing with metronome Repetition/Time : done 10' 15' Resist or Assist : Not Performed : Comment : Shon MICA SIZER, Meredith - 11/09/2022 9:50 EST Shon MICA SIZER, Meredith - 11/09/2022 9:50 EST Shon MICA SIZER, 11/09/2022 9:50 EST Shon MICA SIZER, 11/09/2022 9:50 EST Manual Therapy Manual Therapy Activity 1 Activity 2 Activity 3 Type/Technique : Myofascial/Soft tissue mobilization IASTM, Myofascial/Soft tissue mobilization Other: Cupping Region : Other: achilles, gastroc and soleus Other: plantar fascia Other: R calf and ankle Equipment/Medium : Deep prep Descriptor : 15 5' static Shon MICA SIZER, Meredith 11/09/2022 17:23 EST Shon MICA SIZER, Meredith - 11/09/2022 17:23 EST Shon MICA SIZER, Meredith - 11/09/2022 17:23 EST Modalities Modalities Activity 1 Modality : Iontophoresis Body Region : R Plantar fascia Shon MICA SIZER, Meredith - 11/09/2022 17:23 EST Education *Barriers To Learning : None evident *Teaching Method : Demonstration, Explanation Patient Education - PT Outpatient : N/A ShonMeredith zaragoza PTA - 11/09/2022 17:23 EST Assessment PT Response to Treatment : Tolerated well PT Clinical Assessment Summary : Pt tolerated addition of cupping technique to faciliate increased blood flow and MFR. Applied Iontophoresis to plantar portion of R foot for pain relief. continued focus on symmetry with gait pattern. Meredith Menendez PTA - 11/09/2022 17:23 EST Plan Frequency : 2 times per week *Duration : 6 Weeks *Treatments : Balance training, Therapeutic exercises, Pain Management, Posture/Body mechanics training, Gait training *Plan for Next Visit : Assess response from cupping. Treatment Plan/Goals Established with Patient/Caregiver : Yes Meredith Menendez PTA - 11/09/2022 17:23 EST Time Spent with Patient - Outpatient PT Time In : 00:00 EST PT Time (more content not included)...[facility]01-11-2023 NotePROCEDURE: XR FOOT RT MIN 3 [...] Mild degenerative changes. Electronically authenticated by: JERZY MURRIEAT Date: 2022-11-14 13:42[facility]01-11-2023 NotePROCEDURE: XR FOOT RT MIN [...] Electronically authenticated by: JERZY MURRIETA Date: 2022-11-14 13:42[facility]12-30-2022 NotePT Outpatient Progress Note Entered [...] medial onto heel. A bit of anterior jiménez pain. Therapeutic Exercise : Yes Manual Therapy : Yes Modalities : Yes Abdoulaye Aguiar PT - 11/02/2022 10:18 EST Pain Assessment Pain Location : Heel Laterality : Right Self Report Pain : Numeric rating scale Numeric Pain Scale : 4 Numeric Pain Score : 4 Abdoulaye Aguiar PT - 11/02/2022 10:18 EST Therapeutic Exercise Custom Therapeutic Exercise Exercise 1 Exercise 2 Exercise 3 Exercise 4 Exercise : NuStep joint mobs Talocrural and subtalar Anterior glides 1st MTP Slow reversals and hold relax stretch into extension of 1st MTP Repetition/Time : Grade III 5' x10 Resist or Assist : Not Performed : X Comment : Abdoulaye Aguiar PT - 11/02/2022 10:18 EST Abdoulaye Aguiar PT - 11/02/2022 10:18 EST Abdoulaye Aguiar PT - 11/02/2022 10:18 EST Abdoulaye Aguiar PT - 11/02/2022 14:13 EST Exercise 5 Exercise [...] : 2 then 4 tibial FWD translation Ditammirick PT, Abdoulaye - 11/02/2022 10:18 EST Dittrick [...] Not Performed : X X Comment : Dittrick PT, Abdoulaye - 11/02/2022 14:13 EST Dittrick PT, Abdoulaye - 11/02/2022 10:18 EST Dittrick PT, Abdoulaye - 11/02/2022 14:13 EST Dittrick PT, Abdoulaye - 11/02/2022 10:18 EST Exercise 18 Exercise 20 Exercise 22 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, 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; athletic tape to foot to relieve PF and to soleus Gait trianing with B walking sticks Repetition/Time : done Resist or Assist : Not Performed : Comment : Trinityttrick PT, Abdoulaye - 11/02/2022 10:18 EST Dittrick PT, Abdoulaye - 11/02/2022 10:18 EST Dittrick PT, Abdoulaye - 11/02/2022 10:18 EST Manual Therapy Manual Therapy Activity 1 Activity 2 Type/Technique : Myofascial/Soft tissue mobilization IASTM, Myofascial/Soft tissue mobilization Region : Other: achilles, gastroc and soleus Other: plantar fascia Equipment/Medium : Deep prep Descriptor : 15 15 Trinitydudley LÓPEZ Abdoulaye - 11/02/2022 10:18 EST Cosme PT Abdoulaye - 11/02/2022 10:18 EST Modalities Modalities Activity 1 Activity 2 Activity 3 Modality : Iontophoresis Ultrasound Hot packs Body Region : PF and post tib (prox) achilles, PT, PF L soleus and ankle Settings : 14 hr patch 1.5 w/cm, 50% Minutes : 12 minutes Cosme DAWN Abdoulaye - 11/02/2022 10:18 EST Cosme PT Abdoulaye - 11/02/2022 10:18 EST Daphnerefugio PT Abdoulaye - 11/02/2022 10:18 EST Education *Barriers To Learning : None evident *Teaching Method : Demonstration, Explanation Patient Education - PT Outpatient : Home exercise program - progression/modification Daphnerefugio LÓPEZ Abdoulaye - 11/02/2022 14:13 EST Assessment PT Clinical Assessment Summary : Sebastián session well; doing better with toe shoes but plantar fascia aggravated. Cont work on releasing soleus and TC and Subtalar joints, treating inflammation of PF andPost tib. Trinitytammirefugio LÓPEZ Abdoulaye - 11/02/2022 14:13 EST Plan Frequency : 2 times per week *Duration : 6 Weeks *Treatments : Balance training, Therapeutic exercises, Pain Management, Posture/Body mechanics training, Gait training *Plan for Next Visit : Cont as above. Treatment Plan/Goals Established with Patient/Caregiver : Yes Daphnerefugio LÓPEZ Abdoulaye - 11/02/2022 14:13 EST Time Spent with Patient - Outpatient PT Time In : 09:00 EST PT T (more content not included)...[facility]12-30-2022 NotePT Outpatient Progress Note Entered On: 10/26/2022 10:18 EST Performed On: 10/26/2022 9:49 EST by Meredith Menendez PTA Review/Treatments Provided Total Visit Count : 27 Visit Count Reviewed? 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 Pt demonstrates improved alignment and decreased supination with WBing. Pt educated on discontinued use of insert to improve contact. Shon PTA, Meredith 10/26/2022 9:49 EST Education *Barriers To Learning : None evident *Teaching Method : Demonstration Patient Education - PT Outpatient : N/A Shon PALACIO Meredith 10/26/2022 9:49 EST Assessment PT Response to Treatment : Tolerated well PT Clinical Assessment Summary : Pt exhibits overall improvement with gait mechanics with new shoes. Cues for decreased recurvatum upon weight acceptance. Responded well to manual work today. Shon PALACIO Meredith 10/26/2022 9:49 EST Plan Frequency : 2 [...] Soft Tissue Mobility Time : 0 minutes MICA SIZER Soft Tissue Mobility Units : 0 units PT Total Timed Code Treatment Units : 0 units PT Total Timed Code Tx Minutes : 0 minutes 8 Min Rule Unit Check PT OP : 0 units PT Total Treatment Time Rehab : 0 minutes 8 Min Rule Unit Difference PT OP : 0 Shon HAKEEM Meredith 10/26/2022 9:49 [facility] 09-06-2022 History of Present illness NarrativePatient is [...] states sheusually has an infection after completing antibiotic.[facility] Work Phone: 1(552) 807-114810-30-2022 History of Present illness NarrativePatient is a [...] states sheusually has an infection after completing antibiotic.[facility] Work Phone: 1(350) 357-576309-21-2022 NotePROCEDURE: XR ANKLE RT MIN 3 VIEWS [...] Electronically authenticated by: JERZY MURRIETA Date: 2022-07-25 17:41[facility]06-23-2022 NotePROCEDURE: XR ANKLE RT MIN [...] Electronically authenticated by: JERZY MURRIETA Date: 2022-04-26 09:59[facility]02-14-2022 History of Present illness Narrative* [...] once a week for right ankle pain. -[facility] Work Phone: 1(286) 173-245801-01-2022 History of Present illness Narrative* 41y female [...] have any effect on her flank pain. [facility] [address] Work Phone: 1(283) 323-449301-01-2022 History of Present illness Narrative* 41y female [...] have any effect on her flank pain. 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 Benign essential hypertension Essential hypertension, benign Morbid obesity with body mass index (BMI) of 50.0 to 59.9 in adult (CMS/HCC) documented in this encounter [facility] Work Phone: Evaluation note* Diagnosis Bronchitis- Primary Bronchitis, not specified as acute or chronic documented in this encounter [facility] Work Phone: Evaluation note* Diagnosis Adjustment disorder with mixed anxiety and depressed mood- Primary Weakness of both lower extremities Bilateral hip pain Pain in joint, pelvic region and thigh documented in this encounter [facility] Work Phone: History of Present illness NarrativeVery [...] has been tearful and [facility] Work Phone: History of Present [...] will be going on vacation tomorrow to [place]. [facility] Work Phone: History of Present illness Narrative* [...] will be going on vacation tomorrow to [place]. [facility] Work Phone: History of Present illness Narrative* [...] a follow up appointment with her surgeon zoltancuss her options. 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 * Patient reports she has lost weight 55 lbs since March with [employer]. -[facility] Work Phone: History of Present [...] a follow up appointment with her surgeon zoltancuss her options. 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 * Patient reports she has lost weight 55 lbs since March with [employer]. 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 * Patient reports she has lost weight 55 lbs since March with [employer]. [facility] Work Phone: History of Present illness Narrative* [...] both legs. Applying heat helps a little. -[facility] Work Phone: History of Present [...] both legs. Applying heat helps a little. [facility] Work Phone: Reason for referral (narrative)* Consultation (Routine) - Pending Review Specialty Diagnoses / Procedures Referred By Aaron gilliam Referred To Contact Physical Therapy Diagnoses B[place] [address] [address] [place] [address] Referral ID Status Reason Start Date Expiration Date Visits Requested Visits Authorized [id number] Pending Review Specialty Services Required 12/27/2023 12/26/2024 1 1 [facility] Work Phone: Summary Purpose Family History Unknown [...] Referral Specialty Diagnoses / Procedures Referred By Contac t Referred To Contact Radiology Diagnoses Bronchitis Procedures XR [place] 2 [place] [id number] [place] [address] Referral ID Status Reason Start Date Expiration Date Visits Requested Visits Authorized [id number] Authorized Perform Procedure 3 10/20/2024 1 1 Additional Source Comments INFORMATION SOURCE (unrecogn ized section and content) DATE CREATED AUTHOR 10/11/2020 [employer] DATE CREATED AUTHOR AUTHOR'S ORGANIZ ATION 11/19/2021 [facility] DATE CREATED AUTHOR AUTHOR'S ORGANIZ ATION 01/25/2022 [facility] [place] [place] DATE CREATED AUTHOR AUTHOR'S ORGANIZ ATION 09/12/2022 [facility] DATE CREATED AUTHOR AUTHOR'S ORGANIZ ATION 09/16/2022 [employer] DATE CREATED AUTHOR AUTHOR'S ORGANIZ ATION 03/09/2023 [facility] DATE CREATED AUTHOR AUTHOR'S ORGANIZ ATION 07/19/2023 [facility] DATE CREATED AUTHOR AUTHOR'S ORGANIZ ATION 10/26/2023 [facility] DATE CREATED AUTHOR AUTHOR'S ORGANIZ ATION 01/04/2024 [facility] REASON FOR VISIT (unrecogniz ed section and content) Reason Comments Anxiety She is scheduled to have surgery on her ankle in 5 weeks. She is very anxious about it. Hip Pain Bilateral hip pain, chiropractor suggested PT. 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 [facility] [employer] [facility]. provides no warranty or guarantee of the accuracy or completeness of information in this document.
--- NOTE | 2024-01-20 10:00 | PM.PRESUREVA ---
History of Present Illness History of Present Illness Chief complaint: post traumatic arthritis right ankle Narrative: Patient presents for preadmission testing. The patient reports right ankle pain. The patient states she has had her review surgeries on her right foot and ankle, and continues to have pain. She ambulates with a cane. She is not currently taking any pain medication. She denies numbness, tingling, weakness, or any other complaints. Review of Systems ROS Narrative REVIEW OF SYSTEMS: Negative except as stated in HPI, ten or more systems reviewed. Constitutional: No fever , chills, weakness ENT: No sore throat or epistaxis Cardiovascular: No edema, chest pain, palpitations, or activity intolerance Respiratory: No shortness of breath, cough, or wheezing Gastrointestinal: No abdominal pain, constipation, diarrhea, or vomiting Genitourinary: No dysuria or hematuria Neurological: No numbness, tingling, weakness, or headache Psychiatric: No mood changes [facility] Medical History (Updated 01/20/24 @ 09:35 by Carolyne Walker NP) Depression ?F32.A - Depression, unspecified (ICD-10) Anxiety ?F41.9 - Anxiety disorder, unspecified (ICD-10) COVID-19 ?U07.1 - COVID-19 (ICD-10) Pneumonia ?J18.9 - Pneumonia, unspecified organism (ICD-10) Kidney stones ?N20.0 - Calculus of kidney (ICD-10) Heartburn ?R12 - Heartburn (ICD-10) Nausea ?R11.0 - Nausea (ICD-10) Postoperative nausea and vomiting ?R11.2 - Nausea with vomiting, unspecified (ICD-10) ?Z98.890 - Other specified postprocedural states (ICD-10) Posterior tibial tendinitis ?M76.829 - Posterior tibial tendinitis, unspecified leg (ICD-10) Avascular necrosis of talus ?M87.073 - Idiopathic aseptic necrosis of unspecified ankle (ICD-10) Impingement of ankle joint ?M25.879 - Other specified joint disorders, unspecified ankle and foot (ICD-10) Achilles tendinitis ?M76.60 - Achilles tendinitis, unspecified leg (ICD-10) Plantar fascial fibromatosis ?M72.2 - Plantar fascial fibromatosis (ICD-10) Post-traumatic arthritis of right ankle ?M19.171 - Post-traumatic osteoarthritis, right ankle and foot (ICD-10) Hypertension ?I10 - Essential (primary) hypertension (ICD-10) Heart murmur ?R01.1 - Cardiac murmur, unspecified (ICD-10) ASD (atrial septal defect) ?Q21.10 - Atrial septal defect, unspecified (ICD-10) Surgical History (Updated 01/20/24 @ 09:35 by Carolyne Walker NP) H/O tooth extraction ?K08.409 - Partial loss of teeth, unspecified cause, unspecified class (ICD-10) History of cholecystectomy ?Z90.49 - Acquired absence of other specified parts of digestive tract (ICD-10) History of foot surgery ?Z98.890 - Other specified postprocedural states (ICD-10) History of ankle surgery ?Z98.890 - Other specified postprocedural states (ICD-10) History of foot surgery ?Z98.890 - Other specified postprocedural states (ICD-10) History of foot surgery ?Z98.890 - Other specified postprocedural states (ICD-10) History of ankle surgery ?Z98.890 - Other specified postprocedural states (ICD-10) History of ankle surgery ?Z98.890 - Other specified postprocedural states (ICD-10) Presence of artificial ankle joint ?Z96.669 - Presence of unspecified artificial ankle joint (ICD-10) Family History (Updated 01/20/24 @ 09:35 by Carolyne Walker NP) Other Family history of coronary artery disease Family history of diabetes mellitus Family history of myocardial infarction Salivary gland cancer Social History (Updated 01/20/24 @ 09:27 by Carolyne Walker NP) Within the past year, how often did you have a drink containing alcohol: monthly or less Smoking status: Never smoker Non-prescribed substance use: denies use Highest level of school completed/degree received: Bachelor's degree Meds Home Medications and Allergies Home Medications Medication Instructions Recorded Confirmed Type L norgest/E estradiol-E estrad 1 tab PO DAILY 01/20/24 01/20/24 History 0.15 mg-30 mcg (84)/10 mcg(7) tabs,3mos (Camrese) amlodipine 5 mg-benazepril 20 mg 1 cap PO QPM 01/20/24 01/20/24 History capsule cholecalciferol (vitamin D3) 10 10 mcg PO DAILY 01/20/24 01/20/24 History mcg (400 unit) capsule omega 8-lme-qkt-fish oil 1,000 mg 1 cap PO DAILY 01/20/24 01/20/24 History (120 mg-180 mg) capsule (Fish Oil) Allergies Allergy/AdvReac Type Severity Reaction Status Date / Time acetaminophen [From Percocet] Allergy Hallucinati Verified 01/20/24 09:21 ng azithromycin [From Zithromax] Allergy Vomiting Verified 01/20/24 09:21 oxycodone [From Percocet] Allergy Hallucinati Verified 01/20/24 09:21 ng Exam Narrative Exam Narrative: Constitutional: Awake, alert, comfortable, well-appearing, nontoxic, interactive, vital signs as charted Head: Normocephalic, atraumatic Neck: Supple, normal appearance, normal range of motion, no meningeal signs, no lymphadenopathy Respiratory: No respiratory distress, breath sounds clear Cardiovascular: Regular rate and rhythm, Systolic murmur noted Musculoskeletal: Antalgic gait, ambulates with a cane, diffuse right ankle tenderness, range of motion limited due to pain, sensation intact, good capillary refill Skin: No rashes or induration, no lesions, only visible skin inspected Neuro: No neurological deficits, normal sensation Psychiatric: Oriented ?3, Anxious affect Assessment and Plan Assessment and Plan (1) Posterior tibial tendinitis: (2) Avascular necrosis of talus: (3) Impingement of ankle joint: (4) Achilles tendinitis: (5) Plantar fascial fibromatosis: (6) Post-traumatic arthritis of right ankle: (7) Presence of artificial ankle joint: Plan Removal of right ankle implant, right ankle and hindfoot fusion with soft tissue balancing and bone graft as needed scheduled with Dr. Whiteside 01/27/2024.
[2024-01-20 11:07] LABS: Anion Gap 14.6; BUN Creatinine Ratio 15.2; Calcium 9.2 mg/dL (8.5-10.1); Carbon Dioxide 25.6 mmol/L (21.0-32.0); Chloride 101 mmol/L (98-107); Estimated GFR (African America >60 (>=60); Estimated GFR (Non-African Ame >60 (>=60); Glucose 88 mg/dL (74-106); Potassium 4.2 mmol/L (3.5-5.1); Sodium 137 mmol/L (136-145)
== END 2024-01-20 08:53 | disposition home or self-care (01) ==
LOC: PST 08:52
PROVIDERS: Visit Provider Podiatrist Foot & Ankle Surgery
DX: Z01.810 Encounter for preprocedural cardiovascular examination (principal); Z01.812 Encounter for preprocedural laboratory examination; Z01.818 Encounter for other preprocedural examination; M19.171 Post-traumatic osteoarthritis, right ankle and foot; Z96.661 Presence of right artificial ankle joint
CPT/HCPCS: 80048; 87081; 87086; 87150; 87186; 93005; G0463

== ENCOUNTER 2024-01-28 12:30 | Observation (INO) | payer OTHER, SELFPAY ==
[2024-01-20 09:58] VITALS: BP 131/80; PULSE 86; RESP 22; TEMP 36.6; O2SAT 99; BMI 53.4
[2024-01-27] VITALS (17 sets, daily range): BP systolic 101–173; BP diastolic 75–110; PULSE 90–129; RESP 9–29; TEMP 36.3–37.1; O2SAT 86–97; BMI 53.8
--- NOTE | 2024-01-27 | FL_ITS ---
[address] [address] Patient Name: SERA MAHONEY MRN: [id number] date: 1980 Sex: F [facility] Accession/Order Number: [id number] Exam Date: 01/27/2024 08:30 Report Date: 01/27/2024 15:29 At the request of: FRANCIA COLLAZO Procedure: FL fluoroscopy <1hr NON-READ EXAM: FL fluoroscopy <1hr NON-READ HISTORY: TECHNIQUE: FINDINGS: Please see Operative Report. Electronically authenticated by: RADIOLOGIST NO Date: 01/27/2024 15:29
--- OUTSIDE RECORDS SUMMARY | 2024-01-27 06:18 | XMS_ITS | CCD ---
Author Organization [facility] Care Team Providers Care Second Cook And Baker Name Role Phone Hetal Alonso Unavailable Unavailable Unavailable Unavailable Unavailable CELESTE, Dr. HETAL RAMOS Primary Care ARLETH Ji Attending Unavailable CELESTE, Dr. HETAL RAMOS Primary [facility] ARLETH Ji Attending Unavailable CELESTE, Dr. HETAL RAMOS Referring Unatni labviola ALONSO, Dr. HETAL RAMOS [facility] ALONSO, Dr. HETAL RAMOS Attending Unavai labviola ALONSO, Dr. HETAL RAMOS Referring Unavai lable ALONSO, Dr. HETAL RAMOS Attending Unavai lable ALONSO, Dr. HETAL RAMOS Referring Unavai lable ALONSO, Dr. HETAL RAMOS [facility], Dr. HETAL RAMOS Primary Care [place] [facility] labviola ALONSO, Dr. HETAL RAMOS Attending Unavai lable ALONSO, Dr. HETAL RAMOS Referring Unavai lable ALONSO, Dr. HETAL RAMOS Attending Unavai lable ALONSO, Dr. HETAL RAMOS Referring Unavai lable ALONSO, Dr. HETAL RAMOS Primary Care [facility] FRANCIA Chatterjee Admitting Unavailable FRANCIA COLLAZO Attending Unavailable BOYD, DR WELLINGTON Forrest Consulting Unavailable FRANCIA COLLAZO Consulting Unavailable FRANCIA COLLAZO Admitting Unavailable FRANCIA COLLAZO Attending Unavailable LIT, DR JERZY Watts Consulting Unavailable FRANCIA COLLAZO Consulting Unavailable RFANCIA COLLAZO Admitting Unavailable FRANCIA COLLAZO Attending Unavailable [...] Attending Unavailable HIGHLANDER, FRANCIA Anderson Consulting Unavailable MARLYN COOPER Consulting Unavailable HIGHLANDER, FRANCIA Anderson Admitting Unavailable HIGHLANDER, FRANCIA Anderson Attending Unavailable HIGHLANDER, FRANCIA Anderson Consulting Unavailable KERN, CALEB Consulting Unavailable JOSE ., JENNI MITCHELL Consulting Unavailable SHARP, ELYSE Consulting Unavailable JEFF II, KIM Consulting Unavailable HIGHLANDER, FRANCIA Anderson Admitting Unavailable HIGHLANDER, FRANCIA Anderson Attending Unavailable LIT, DR JERZY Watts Consulting Unavailable HIGHLANDER, FRANCIA Anderson Consulting Unavailable Evan Feliciano Unavailable Hetal Alonso MD Primary Care Provider [...] Attending Unavailable ALONSO, HETAL Primary Care Unavailable ALONSO HETAL K Attending Unavailable ALONSO, HETAL K Primary Care Unavailable ALONSO, HETAL K Attending Unavailable ALONSO, HETAL K Primary Care Unavailable ALONSO, HETAL K Attending Unavailable HETAL ALONSO Primary Care Unavailable Hetal Alonso MD Unavailable Allergies Allergy Classification Reported Allergen(s) Allergy Type Date of Onset Reaction(s) Facility Acetaminophen / oxyCODONE (2 sources) Acetaminophen / oxyCODONE; Translations: [Percocet TABS] [facility] [employer] Work [facility]: Macrolides (antibiotic) (1 source) Azithromycin; Translations: [Zithromax PACK] Drug Allergy [facility] [employer] Work Phone: (20 sources) Acetaminophen / oxyCODONE; Translations: [Percocet TABS] Drug Allergy 2 Hallucinations, Rash [facility] [employer] Work Phone: (19 sources) Azithromycin; Translations: [Zithromax PACK] Drug Allergy 2 [facility] [employer] Work Phone: (2 sources) Acetaminophen / oxyCODONE Drug Allergy [facility] Repository (2 sources) Adhesive agent Drug allergy (disorder) [facility] Repository (3 sources) Azithromycin; Translations: [AZITHROMYCIN] Drug Allergy [address] [facility] Repository (1 source) Acetaminophen / oxyCODONE; Translations: [OXYCODONE-ACETAM INOPHEN] Drug Allergy 2 [facility] 3 Repository Medications Current Medications Medication Drug Class(es) Dates Sig (Normalized) Sig (Original) acetaminophen 325 mg / HYDROcodone bitartrate 5 mg oral tablet (6 sources) Opioid Agonist take 1 tablet by mouth every six hours HYDROcodone-Aceta minophen 5-325 MG 1 tablet as needed Orally every 6 hrs Active [id number] 200 actuat albuterol 0.09 mg/actuat metered dose [...] Start: 07-18-2022 take 1 capsule by mo ut once daily DULoxetine HCl - 20 MG [...] oral solution (1 source) alpha-Adrenergic Agonist, Uncompetitive S-mtjbte-M-aspartat e Receptor Antagonist, Sigma-1 Agonist Start: 10-21-2023 [...] Comment on above: Added by Problem Kenia tawana Migration; 2013-10-13; Osteoarthritis (5 sources) Post-traumatic osteoarthritis, right ankle and foot; Translations: [POST-TRAUM OSTEOARTHRITIS RT ANK FT] Onset: 01-23-2023 Chronic Other acquired deformities (1 source) Contracture, right ankle; Translations: [CONTRACTURE RIGHT ANKLE] Onset: 01-23-2023 Chronic Other aftercare (1 source) longterm (current) use of aspirin; Translations: [CORRECTION CURRENT USE OF ASPIRIN] Onset: 01-23-2023 Episodic [...] Added by Problem Kenia gilliam Migration; 2013-10-13; Mycoses (19 sources) Candidal intertrigo; [...] 15, 2023 09:00 am EDT LW PT [address] [facility] [address] PM Follow Up LE pain Saturday DEWAYNE GARRISON MD June 17, 2023 01:15 pm EDT MM PMCL [address] [facility] [address] [facility] [address] Medications What How Much When Why Instructions New meloxicam (Mobic 15 mg oral tablet) 1 Tabs Oral DAILY Duration: 30 Days Refills: 5 Pickup at [facility] #[id number] New topiramate (Topamax 50 mg oral tablet) See instructions Refills: 5 1-2 tabs ORAL HS Pickup at [facility] #[id number] New venlafaxine (venlafaxine 37.5 mg oral tablet = effexor) 1 Tabs Oral TWICE A DAY Duration: 30 Days Refills: 5 Pickup at [facility] #[id number] Unchanged acetaminophen-hydrocodone (acetaminophen-HYDROcodone 325 mg-5 mg oral [...] for as needed for nausea/vomiting [id number]: [address] [place], [place] [id number] [phone] What How Much When Comments Stop Taking [...] call to get immediate medical attention! Normal [facility] Comprehensive Intake - Texto n 05-14-2023 Comprehensive [...] in, 168 cm) Body Mass Index Measured Citizen Of [place] : 45.19 kg/m2 BSA Citizen [place] : 2.43 m2 Destinee James - 05/14/2023 [...] risk situation (congregated living, hemodialysis, infusion clinic, fpc, assisted living, longterm, homeless snf, etc.)? : No Destinee James 05/14/2023 11:18 [...] no injury in last year Destinee James 05/14/2023 11:18 EDT [facility] PM-OP Progress Notes-Provide puja 05-14-2023 PM-OP Progress Notes-Provider Chief Complaint pt reports pain in ankle and foot, pt rartes pain a 5 out of 10 on vas, pt name and verifed. History of Present Illness This is a pleasant 42-year-old patient who presents to the pain clinic at [facility], for evaluation and treatment of her right [...] and went to see a doctor in [place]. She had 3 deep printed talus implant [...] since her injury. 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 Patient does want to go back to work and be able to perform activities of her daily living without any assistance. Patient has had physical therapy for 3 years and is still in physical therapy at [facility]. Her last session is tomorrow. Her physical [...] Measurements Systolic Blood Pressure: 141 mmHg High (05/14/23:18:00) Diastolic Blood Pressure: 88 mmHg (05/14/23:18:00) Apical Heart Rate: 88 bpm (05/14/23:18:) SpO2: 98 % (05/14/23:) Mean Arterial Pressure: 106 mmHg (05/14/2318:) BP Site2: Left arm (05/14/23:18:00) Height/Length Measured: 168 cm (05/14/23:18:00) Weight Measured: 127 kg (05/14/2318:) Body Mass Index Measured: 45 kg/m2 (05/14/23:18:) Weight Measured - lbs2: 280 lb (05/14/2318:) Height/Length Measured - in2: 66 in (05/14/2318:) Body Mass Index Measured English2: 45.19 kg/m2 (05/14/23:18:00) BSA: 2.43 m2 (05/14/23:18:00) Ht/Wt Measurement Refused by Patient?2: No (05/14/2318:00) Depression Screening Scores Initial Depression Screen Score: [...] to li (more content not included)... Normal [facility] PT Outpatient Time Spent Wit h Pt-Texton 04-16-2023 PT Outpatient Time Spent With Pt-Text PT Outpatient Time Spent With Patient Entered On: 04/16/2023 17:54 EDT Performed On: 04/16/2023 17:53 EDT by Meredith Menendez PTA Time Spent with Patient - Outpatient PT Time In : 08:00 EST PT Time Out : 08:45 EST PT Therapeutic Exercise Time : 45 minutes RESTAURANT ASSISTANT MANAGER Therapeutic Exercise Units : 3 units PT Total Timed Code Treatment Units : 3 units PT Total Timed Code Tx Minutes : 45 minutes 8 Min Rule Unit Check PT OP : 3 units PT Total Treatment Time Rehab : 45 minutes 8 Min Rule Unit Difference PT OP : 0 Meredith Menendez PTA - 04/16/2023 17:53 EDT Normal [facility] PT Outpatient Time Spent Wit h Pt-Texton 03-26-2023 PT Outpatient Time Spent With Pt-Text PT Outpatient Time Spent With Patient Entered On: 03/26/2023 11:30 EDT Performed On: 03/26/2023 11:26 EDT by Meredith Menendez PTA Time Spent with Patient - Outpatient PT Time In : 08:45 EST PT Time Out : 09:30 EST PT Vasopneumatic Devices Time : 15 minutes RESTAURANT ASSISTANT MANAGER Vasopneumatic Devices Units : 1 units PT Soft Tissue Mobility Time : 30 minutes RESTAURANT ASSISTANT MANAGER Soft Tissue Mobility Units : 2 units [...] Menendez PTA - 03/26/2023 11:26 EDT Normal [facility] Phone Msgon 03-20-2023 Phone Msg - From: Lilia Schneider To: KOREY HUTCHINSON DPM; Sent: 02/25/2023 10:43:13 EDT Caller Name: SERA WOO; Caller Number: H , B [phone] Sera called and is having her EMG done on March 05. She needs a referral to pain management so we can send the note over. Patient has been approved for MRI See [facility] Phone Msg - From: Heather Prajapati [...] they can be faxed to [employer] @ [phone] or to expedite the process, phoned in at [phone] mri case# for insurance is [id number] and should be included Thanks, Genevieve Omalley auth rep [id number] Malinda Connolly speaking to [employer] for further needs regarding authorization Normal [facility] Phone Msg - From: Emy Davis To: KOREY HUTCHINSON DPM; Sent: 03/07/2023 09:54:43 EDT Subject: MRI Caller Name: SERA WOO; Caller Number: H , B [phone] Sera called to ask for your help [...] and won't get this message until Saturday. [phone] Malinda Connolly is speaking to [facility] [employer] in regards to further action needed Normal [facility] PT Outpatient Time Spent Wit h Pt-Texton 03-14-2023 PT Outpatient Time Spent With Pt-Text PT Outpatient Time Spent With Patient Entered On: 03/14/2023 10:28 EDT Performed On: 03/12/2023 9:30 EDT by Meredith Menendez PTA Time Spent with Patient - Outpatient PT Time In : 08:45 EST PT Time Out : 09:30 EST PT Therapeutic Exercise Time : 45 minutes RESTAURANT ASSISTANT MANAGER Therapeutic Exercise Units : 3 units PT Total Timed Code Treatment Units : 3 units PT Total Timed Code Tx Minutes : 45 minutes 8 Min Rule Unit Check PT OP : 3 units PT Total Treatment Time Rehab : 45 minutes 8 Min Rule Unit Difference PT OP : 0 Meredith Menendez PTA - 03/14/2023 10:28 EDT Normal [facility] PT Outpatient Time Spent Wit h Pt-Texton 03-05-2023 PT Outpatient Time Spent With Pt-Text PT Outpatient Time Spent With Patient Entered On: 03/05/2023 14:10 EDT Performed On: 03/05/2023 14:09 EDT by Meredith Menendez PTA Time Spent with Patient - Outpatient PT Time In : 11:45 EST PT Time Out : 12:30 EST PT Therapeutic Exercise Time : 45 minutes RESTAURANT ASSISTANT MANAGER Therapeutic Exercise Units : 3 units PT Total Timed Code Treatment Units : 3 units PT Total Timed Code Tx Minutes : 45 minutes 8 Min Rule Unit Check PT OP : 3 units PT Total Treatment Time Rehab : 45 minutes 8 Min Rule Unit Difference PT OP : 0 Meredith Menendez PTA - 03/05/2023 14:09 EDT Normal [facility] PT Outpatient Time Spent Wit h Pt-Texton 02-21-2023 PT Outpatient Time Spent With Pt-Text PT Outpatient Time Spent With Patient Entered On: 02/21/2023 18:13 EDT Performed On: 02/21/2023 18:12 EDT by Meredith Menendez PTA Time Spent with Patient - Outpatient PT Time In : 10:15 EST PT Time Out : 11:00 EST PT Gait Training Time : 45 minutes RESTAURANT ASSISTANT MANAGER Gait Training Units : 3 units PT Total Timed Code Treatment Units : 3 units PT Total Timed Code Tx Minutes : 45 minutes 8 Min Rule Unit Check PT OP : 3 units PT Total Treatment Time Rehab : 45 minutes 8 Min Rule Unit Difference PT OP : 0 Meredith Menendez PTA - 02/21/2023 18:12 EDT Normal [facility] PT Outpatient Time Spent Wit h Pt-Texton 02-18-2023 PT Outpatient Time Spent With Pt-Text PT Outpatient Time Spent With Patient Entered On: 02/18/2023 18:12 EDT Performed On: 02/18/2023 18:11 EDT by Meredith Menendez PTA Time Spent with Patient - Outpatient PT Time In : 16:30 EST PT Time Out : 17:15 EST PT Therapeutic Exercise Time : 45 minutes RESTAURANT ASSISTANT MANAGER Therapeutic Exercise Units : 3 units PT Total Timed Code Treatment Units : 3 units PT Total Timed Code Tx Minutes : 45 minutes 8 Min Rule Unit Check PT OP : 3 units PT Total Treatment Time Rehab : 45 minutes 8 Min Rule Unit Difference PT OP : 0 Meredith Menendez PTA - 02/18/2023 18:11 EDT Normal [facility] PT Outpatient Time Spent Wit h Pt-Texton 02-11-2023 PT Outpatient Time Spent With Pt-Text PT Outpatient Time Spent With Patient Entered On: 02/11/2023 19:12 EDT Performed On: 02/11/2023 19:09 EDT by Meredith Menendez PTA Time Spent with Patient - Outpatient PT Time In : 17:45 EST PT Time Out : 18:40 EST PT Vasopneumatic Devices Time : 15 minutes RESTAURANT ASSISTANT MANAGER Vasopneumatic Devices Units : 1 units PT Therapeutic Exercise Time : 15 minutes RESTAURANT ASSISTANT MANAGER Therapeutic Exercise Units : 1 units PT Soft Tissue Mobility Time : 25 minutes RESTAURANT ASSISTANT MANAGER Soft Tissue Mobility Units : 2 units [...] Menendez PTA - 02/11/2023 19:09 EDT Normal [facility] AMB PODIATRY Physician Progr ess Noteon 01-19-2023 [...] to the anterior medial distal tibia Normal [facility] AMB PODIATRY Physician Progress Note Chief Complaint [...] Est Pt Mod MDM / 30-39 min 80012, 57 Decision for surgery 01/08/2023 10:01:00 EST, Osteochondral defect of distal tibia / Avascular necrosis of the talus / Right ankle pain / Acute lumbar radiculopathy 2. Avascular necrosis of the talus M87.076 Ordered: AMB Office/Outpt Est Pt Mod MDM / 30-39 min 24325, 57 Decision for surgery 01/08/2023 10:01:00 EST, Osteochondral defect of distal tibia / Avascular necrosis of the talus / Right ankle pain / Acute lumbar radiculopathy 3. Right ankle pain M25.571 Ordered: AMB Office/Outpt Est Pt Mod MDM / 30-39 min 53790, 57 Decision for surgery 01/08/2023 10:01:00 EST, Osteochondral defect of distal tibia / Avascular necrosis of the talus / Right ankle pain / Acute lumbar radiculopathy 4. Acute lumbar radiculopathy M54.16 Ordered: AMB Office/Outpt Est Pt Mod MDM / 30-39 min 08259, 57 Decision for surgery 01/08/2023 10:01:00 EST, [...] for revisional (more content not included)... Normal [facility] HEP B SURFACE ANTIGEN SCREEN on 01-11-2023 HBsAg Screen Negative Normal Negative [facility] Comment on above: Performed By: #### H BSA ####[facility] [id number] [address]Dr. Raimundo aRyo HEPATITIS C ANTIBODYon 01-11 Hep C Virus Ab Non-Reactive Normal Non Reactive [facility] Comment on above: Result Comment: HCV antibody alone does not differentiate between previously resolved infection and active infection. Equivocal and Reactive HCV antibody results should be followed up with an HCV RNA test to support the diagnosis of active HCV infection. Performed By: #### H CV #### [facility] [address] [place] [address] Dr. Raimundo Rayo HIV 1 AND 2 WITH REFLEXon HIV Screen 4th Generation wRfx Non-Reactive Normal Non Reactive [facility] Comment on above: Result Comment: HIV Negative HIV-1/HIV-2 antibodies and HIV-1 p24 antigen were NOT detected. There is no laboratory evidence of HIV infection. Performed By: #### H IV12 #### [facility] [address] [place] [address] Dr. Raimundo Rayo RPR QUANTon 01-11-2023 Rapid Plasma Reagin, Quant Non-Reactive Normal NonRea<1:1 [facility] Comment on above: Result Comment: Plea se Note: This test does not meet current guidelines for screening and diagnosis of syphilis. This test is intended for following treatment response in patients being treated for syphilis infection. To screen for syphilis infection, a reflex cascade that includes both RPR and a treponema-specific assay should be utilized, such as Treponema pallidum (Syphilis) Screening Irion (792405) or Rapid Plasma Reagin (RPR) Test With Reflex to Quantitative RPR and Confirmatory Treponema pallidum Antibodies (472546). Performed By: #### R PRQ #### [facility] [address] [place] [address] Dr. Raimundo Rayo HIV 1/2 RAPID (EXPOSURE ONLY )on 01-10-2023 HIV AB Non-Reactive Normal NON-REACTIVE [facility] Comment on above: Performed By: #### R PDHIV #### [facility] [address] [place] [address] Dr. Raimundo Rayo HIV AG Non-Reactive Normal NON-REACTIVE [facility] Comment on above: Performed By: #### R PDHIV #### [facility] [address] [place] [address] Dr. Raimundo Rayo INTERNAL CONTROLS Within Normal Limits Normal Wi thin Normal Limits [facility] Comment on above: Performed By: #### R PDHIV #### [facility] [address] [address] [address] Raimundo Rayo RAPID HIV INFO SEE BELOW Normal [facility] Comment on above: Result Comment: This test is used for the initial screening of the exposure source. Confirmation of all reactive results will be obtained through reference lab testing. Performed By: #### R PDHIV #### [facility] [address] [address] [address] Raimundo Rayo POINT OF CARE GLUCOSEon 03-0 Glucose [Mass/Vol] 86 mg/dL Normal 74-[address] [facility] Comment on above: Performed By: #### P OCGLUC #### [facility] [address] [address] [address] Raimundo Rayo Glucose [Mass/Vol] 79 mg/dL Normal 74-[address] [facility] Comment on above: Performed By: #### P OCGLUC ####[facility] [address] [address]Dr. Raimundo Rayo PREG HCG QUALon 01-10-2023 , QUAL Negative Normal NEGATIVE [facility] Comment on above: Performed By: #### P REG #### [facility] [address] [address] [address] Raimundo Rayo XR ANKLE RT MIN [...] CALEB KERN Date: 2023-01-10 16:[address] [facility] XR FOOT RT 2Von 01-10-2023 XR FOOT RT 2V EXAM: XR FOOT RT 2V. HISTORY: Pain. COMPARISON: 11/14/2022. TECHNIQUE: Intraoperative fluoroscopic view of the right ankle was obtained. Total fluoroscopy time: 32.1 seconds. FINDINGS/IMPRESSION: Intraoperative fluoroscopic utilization for right ankle surgery. Please refer to the operative report for detailed discussion. Electronically authenticated by: CALEB KERN Date: 2023-01-10 17:11 Normal [facility] Ambulatory Clinical Summaryo n 01-08-2023 Ambulatory Clinical [...] call to get immediate medical attention! Normal [facility] Comprehensive Intake - Texto n 01-08-2023 Comprehensive [...] previously received : No Katiana Case MA 01/08/2023 9:38 EST Measurements Ht/Wt Measurement Refused by Patient? : No Weight Measured : 119 kg(Converted to: 262 lb 6 oz, 262.350 lb) Height/Length Measured : 165 cm(Converted to: 5 ft 5 in, 64.96 in) Body Mass Index Measured : 43.71 kg/m2 Body Mass Index documented : Yes Katiana Case MA 01/08/2023 9:38 EST Vitals Require BP : [...] risk situation (congregated living, hemodialysis, infusion clinic, fpc, assisted living, longterm, homeless snf, etc.)? : No Katiana Case MA 01/08/2023 [...] Katiana Case MA 01/08/2023 9:38 EST Normal [facility] CBC AUTO DIFFon 01-07-2023 BASO # 0.0 103/ul Normal 0.0-0.1 [facility] Comment on above: Performed By: #### C BC #### [facility] [address] [address] [address] Raimundo Rayo Basophils/100 WBC (Bld) 0.6 % Normal 0.2-2.0 [facility] Comment on above: Performed By: #### C BC #### [facility] [address] [place] [address] Dr. Raimundo Rayo EO # 0.1 103/ul Normal 0.0-0.7 [facility] Comment on above: Performed By: #### C BC #### [facility] [address] [place] [address] Dr. Raimundo Rayo Eosinophils/100 WBC (Bld) 1.1 % Normal 0.9-7.0 [facility] Comment on above: Performed By: #### C BC #### [facility] [address] [place] [address] Dr. Raimundo Rayo Erythrocyte distribution width (RBC) [Ratio] 13.6 % Normal 11.0-15.0 [facility] Comment on above: Performed By: #### C BC #### [facility] [address] [place] [address] Dr. Raimundo Rayo Hematocrit (Bld) [Volume fraction] 40.0 % Normal 36.0-48.0 [facility] Comment on above: Performed By: #### C BC #### [facility] [address] [place] [address] Dr. Raimundo Rayo Hemoglobin (Bld) [Mass/Vol] 13.0 g/dL Normal 12.0-16.0 [facility] Comment on above: Performed By: #### C BC #### [facility] [address] [place] [address] Dr. Raimundo Rayo IG # 0.03 10e3/ul Normal 0.00-0.[address] [facility] Comment on above: Performed By: #### C BC #### [facility] [address] [place] [address] Dr. Raimundo Rayo IG % 0.4 % Normal 0.0-0.[address] [facility] Comment on above: Performed By: #### C BC #### [facility] [address] [place] [address] Dr. Raimundo Rayo LYMPH # 1.7 103/ul Normal 1.2-3.[address] [facility] Comment on above: Performed By: #### C BC #### [facility] [address] [address] [address] Raimundo Rayo Lymphocytes/100 WBC (Bld) 23.8 % Normal 20.5-60.0 [facility] Comment on above: Performed By: #### C BC #### [facility] [address] [place] [address] Dr. Raimundo Rayo MANUAL DIFF REQ NO Normal [facility] Comment on above: Performed By: #### C BC #### [facility] [address] [place] [address] Dr. Raimundo Rayo MCH (RBC) [Entitic mass] 28.4 pg Normal 26.7-34.0 [facility] Comment on above: Performed By: #### C BC #### [facility] [address] [place] [address] Dr. Raimundo Rayo MCHC (RBC) [Mass/Vol] 32.5 g/dL Normal 29.9-35.[address] [facility] Comment on above: Performed By: #### C BC #### [facility] [address] [place] [address] Dr. Raimundo Rayo MCV (RBC) [Entitic vol] 87.5 fL Normal 81.0-99.0 [facility] Comment on above: Performed By: #### C BC #### [facility] [address] [place] [address] Dr. Raimundo Rayo MONO # 0.6 103/ul Normal 0.3-0.[address] [facility] Comment on above: Performed By: #### C BC #### [facility] [address] [place] [address] Dr. Raimundo Rayo Monocytes/100 WBC (Bld) 8.0 % Normal 1.7-12.[address] [facility] Comment on above: Performed By: #### C BC #### [facility] [address] [place] [address] Dr. Raimundo Rayo NEUT # 4.8 103/ul Normal 1.4-6.[address] [facility] Comment on above: Performed By: #### C BC #### [facility] [address] [address] [address] Raimundo Rayo Neutrophils/100 WBC (Bld) 66.1 % Normal 43.0-75.[address] [facility] Comment on above: Performed By: #### C BC #### [facility] [address] [address] [address] Raimundo Rayo Platelet mean volume (Bld) [Entitic vol] 8.5 fL Critically low 9.5-13.[address] [facility] Comment on above: Performed By: #### C BC #### [facility] [address] [address] [address] Raimundo Rayo PLT 336 103/ul Normal 150-[address] [facility] Comment on above: Performed By: #### C BC #### [facility] [address] [address] [address] Raimundo Rayo RBC 4.57 106/ul Normal 4.20-5.[address] [facility] Comment on above: Performed By: #### C BC #### [facility] [address] [address] [address] Raimundo Rayo WBC 7.2 103/ul Normal 4.0-11.[address] [facility] Comment on above: Performed By: #### C BC #### [facility] [address] [address] [address] Raimundo Rayo PROF CHEM 8 (BAS METB)on Anion gap [Moles/Vol] 11.3 mmol/L Normal [facility] Comment on above: Performed By: #### B MP ####[facility] [address] [address]Dr. Raimundo Rayo Calcium [Mass/Vol] 9.1 mg/dL Normal 8.5-10.[address] [facility] Comment on above: Performed By: #### B MP ####[facility] [address] [id number]. Raimundo Rayo Chloride [Moles/Vol] 105 mmol/L Normal 98-[address] [facility] Comment on above: Performed By: #### B MP ####[facility] [address] [address]Dr. Raimundo Rayo CO2 [Moles/Vol] 27.0 mmol/L Normal 21.0-32.0 [facility] Comment on above: Performed By: #### B MP ####[facility] [address] [address]Dr. Raimundo Rayo Creatinine [Mass/Vol] 0.53 mg/dL Critically low 0.55-1.[address] [facility] Comment on above: Performed By: #### B MP ####[facility] [address] [address]Dr. Raimundo Rayo EGFR-AF BELARUSIAN >60 Normal >=60 [facility] Comment on above: Performed By: #### B MP ####[facility] [address] [place], [place] [address]Dr. Karynpradeep Rayo EGFR-NON AF BELARUSIAN >60 Normal >=[address] [facility] Comment on above: Performed By: #### B MP ####[facility] [address] [place], [place] [address]Dr. Raimundo Girma Glucose [Mass/Vol] 104 mg/dL Normal 74-[address] [facility] Comment on above: Performed By: #### B MP ####[facility] [address] [place], [place] [address]Dr. Raimundo Rayo Potassium [Moles/Vol] 4.3 mmol/L Normal 3.5-5.[address] [facility] Comment on above: Performed By: #### B MP ####[facility] [address] [place], [place] [address]Dr. Raimundo Rayo Sodium [Moles/Vol] 139 mmol/L Normal 136-[address] [facility] Comment on above: Performed By: #### B MP ####[facility] [address] [place], [place] [address]Dr. Raimundo Rayo Urea nitrogen [Mass/Vol] 10.0 mg/dL Normal 7.0-18.[address] [facility] Comment on above: Performed By: #### B MP ####[facility] [address] [place], [place] [address]Dr. Yilan Rayo Urea nitrogen/Creatini ne [Mass ratio] 18.9 mg/mg Normal [facility] Comment on above: Performed By: #### B ####[facility] [address] [place], [place] [address]EcCortes Rayo PT Outpatient Time Spent Wit h [...] PT Therapeutic Exercise Time : 45 minutes RESTAURANT ASSISTANT MANAGER Therapeutic Exercise Units : 3 units PT Total Timed Code Treatment Units : 3 units PT Total Timed Code Tx Minutes : 45 minutes 8 Min Rule Unit Check PT OP : 3 units PT Total Treatment Time Rehab : 45 minutes Ronald MS ENGLISH/HAT BODY INSPECTOR, Carolyn - 12/31/2022 10:23 EST 8 Min Rule Unit Difference PT OP : 0 Meredith Menendez PTA - 12/21/2022 9:14 EST Normal [facility] AMB PODIATRY Physician Progr ess Noteon 12-30-2022 [...] (12/19/22 13:50:00) Diastolic Blood Pressure: 70 mmHg (12/19/22:50:00) Mean Arterial Pressure: 91 mmHg (12/19/22 13:50:00) Height/Length Measured: 165 cm (12/19/22 13:50:00) Weight Measured: 119 kg (12/19/22:50:00) Body Mass Index Measured: 43.71 kg/m2 (12/19/22 13:50:00) Weight Measured - lbs2: 262 lb (12/19/22:50:00) Height/Length Measured - in2: 65 in (12/19/22:50:00) Body Mass Index Measured English2: 43.59 kg/m2 (12/19/22:50:00) BSA: 2.33 m2 (12/19/22:50:00) Ht/Wt Measurement Refused by Patient?2: No (12/19/22:50:00) Depression Screening Scores Initial Depression Screen Score: 0 (12/19/22 13:50:00) Fall Risk Assessment Is the patient ambulatory (mobile): Yes (12/19/22 13:50:00) Have you had a fall within the past: No (12/19/22:50:00) Have you had 2 or more falls [...] Est Pt Mod MDM / 30-39 min 35687, 12/19/2022 08:19:00 EST, Osteochondral defect of distal tibia / Avascular necrosis of the talus / Right ankle pain / Acute lumbar radiculopathy 2. Avascular necrosis of the talus M87.076 Ordered: AMB Office/Outpt Est Pt Mod MDM / 30-39 min 66767, 12/19/2022 08:19:00 EST, Osteochondral defect of distal tibia / Avascular necrosis of the talus / Right ankle pain / Acute lumbar radiculopathy 3. Right ankle pain M25.571 Ordered: AMB Office/Outpt Est Pt Mod MDM / 30-39 min 69964, 12/19/2022 08:19:00 EST, Osteochondral defect of distal tibia / Avascular necrosis of the talus / Right ankle pain / Acute lumbar radiculopathy 4. Acute lumbar radiculopathy M54.16 Ordered: AMB Office/Outpt Est Pt Mod MDM / 30-39 min 14551, 12/19/2022 08:19:00 EST, Osteochondral defect of distal [...] anxiety an (more content not included)... Normal [facility] Ambulatory Clinical Summaryo n 12-19-2022 Ambulatory Clinical [...] Ortho F/U - (45) Saturday Meredith D (RESTAURANT ASSISTANT MANAGER) (1) December 21, 2022 08:00 am EDT LW PT [address] [facility] [address] PMR Ortho F/U - (45) Saturday Meredith D (RESTAURANT ASSISTANT MANAGER) (1) December 25, 2022 08:45 am EDT LW PT [address] [facility] [address] PMR Ortho F/U - (45) Saturday Mirza D (PT) (2) December 28, 2022 09:00 am EDT LW PT [address] [facility] [address] PMR Ortho F/U - (45) Saturday Meredith D (RESTAURANT ASSISTANT MANAGER) (1) January 01, 2023 09:00 am EDT LW PT [address] [facility] [address] PMR Ortho F/U - (45) Saturday Mirza D (PT) (2) January 04, 2023 09:00 am EDT LW PT [address] [facility] [address] PMR Ortho F/U - (45) Saturday Mirza D (PT) (2) January 09, 2023 09:00 am EDT LW PT [address] [facility] [address] Medications What How Much When Why Instructions [...] of these heart attack warning signs, call 07-05- to get immediate medical attention! Normal [facility] Comprehensive Intake - Texto n 12-19-2022 Comprehensive [...] in, 165 cm) Body Mass Index Measured Citizen Of [place] : 43.59 kg/m2 BSA Citizen Of [place] : 2.33 m2 Anastacia Lowe LPN - [...] risk situation (congregated living, hemodialysis, infusion clinic, fpc, assisted living, longterm, homeless snf, etc.)? : No Anastacia Lowe LPN - [...] Lowe LPN - 12/19/2022 13:50 EST Normal [facility] PT Outpatient Time Spent Wit h Pt-Texton 12-07-2022 PT Outpatient Time Spent With Pt-Text PT Outpatient Time Spent With Patient Entered On: 12/07/2022 14:35 EST Performed On: 12/07/2022 14:33 EST by Meredith Menendez PTA Time Spent with Patient - Outpatient PT Time In : 13:30 EST PT Time Out : 14:15 EST PT Therapeutic Exercise Time : 45 minutes RESTAURANT ASSISTANT MANAGER Therapeutic Exercise Units : 3 units PT [...] Menendez PTA - 12/07/2022 14:33 EST Normal [facility] PT Outpatient Time Spent Wit h Pt-Texton 11-30-2022 PT Outpatient Time Spent With Pt-Text PT Outpatient Time Spent With Patient Entered On: 11/30/2022 17:35 EST Performed On: 11/30/2022 17:34 EST by Meredith Menendez PTA Time Spent with Patient - Outpatient PT Time In : 16:45 EST PT Time Out : 17:30 EST PT Therapeutic Exercise Time : 35 minutes RESTAURANT ASSISTANT MANAGER Therapeutic Exercise Units : 2 units PT Soft Tissue Mobility Time : 10 minutes RESTAURANT ASSISTANT MANAGER Soft Tissue Mobility Units : 1 units PT Total Timed Code Treatment Units : 3 units PT Total Timed Code Tx Minutes : 45 minutes 8 Min Rule Unit Check PT OP : 3 units PT Total Treatment Time Rehab : 45 minutes 8 Min Rule Unit Difference PT OP : 0 Meredith Menendez PTA - 11/30/2022 17:34 EST Normal [facility] PT Outpatient Time Spent Wit h Pt-Texton 11-27-2022 PT Outpatient Time Spent With Pt-Text PT Outpatient Time Spent With Patient Entered On: 11/27/2022 13:16 EST Performed On: 11/23/2022 9:30 EST by Meredith Menendez PTA Time Spent with Patient - Outpatient PT Time In : 09:30 EST PT Time Out : 10:15 EST PT Therapeutic Exercise Time : 45 minutes RESTAURANT ASSISTANT MANAGER Therapeutic Exercise Units : 3 units PT Total Timed Code Treatment Units : 3 units PT Total Timed Code Tx Minutes : 45 minutes 8 Min Rule Unit Check PT OP : 3 units PT Total Treatment Time Rehab : 45 minutes 8 Min Rule Unit Difference PT OP : 0 Meredith Menendez PTA - 11/27/2022 13:15 EST Normal [facility] CT ANKLE RT WO CONon 023 CT ANKLE RT WO CON EXAMINATION: [...] by: WELLINGTON NIX Date: 2022-11-21 16:19 Normal [facility] PT Outpatient Time Spent Wit h Pt-Texton 11-09-2022 PT Outpatient Time Spent With Pt-Text PT Outpatient Time Spent With Patient Entered On: 11/09/2022 17:32 EST Performed On: 11/09/2022 10:30 EST by Meredith Menendez PTA Time Spent with Patient - Outpatient PT Time In : 09:45 EST PT Time Out : 10:30 EST PT Therapeutic Exercise Time : 15 minutes RESTAURANT ASSISTANT MANAGER Therapeutic Exercise Units : 1 units PT Soft Tissue Mobility Time : 22 minutes RESTAURANT ASSISTANT MANAGER Soft Tissue Mobility Units : 1 units PT Iontophoresis Time : 8 minutes RESTAURANT ASSISTANT MANAGER Iontophoresis Units : 1 units PT Total Timed Code Treatment Units : 3 units PT Total Timed Code Tx Minutes : 45 minutes 8 Min Rule Unit Check PT OP : 3 units PT Total Treatment Time Rehab : 45 minutes 8 Min Rule Unit Difference PT OP : 0 Meredith Menendez PTA - 11/09/2022 17:29 EST Normal [facility] PT Outpatient Historical Rock a - Texton 2022 PT Outpatient Historical Data - Text PT Outpatient Historical Data Entered On: 2022 10:15 EST Performed On: 2022 10:15 EST by Meredith Menendez PTA PT Outpatient Historical Data Halfway Goals : Yes Plan : Yes Manual [...] Meredith Menendez PTA - 2022 10:15 EST Planogrammer Goals - Historical PT Outpt Pt Goal [...] : without limitations working on 3-4 step Meredith Menendez PTA - 2022 10:15 EST Shon RESTAURANT ASSISTANT MANAGER, Meredith - 2022 10:15 EST Shon RESTAURANT ASSISTANT MANAGER, Meredith - 2022 10:15 EST Plan - Historical PT [...] Meredith 2022 10:15 EST Shon PALACIO, Meredith - 2022 10:15 EST Therapeutic Exercise - Historical [...] Shon PALACIO, Meredith 2022 10:15 EST Shon RESTAURANT ASSISTANT MANAGER, Meredith 2022 10:15 EST Shon RESTAURANT ASSISTANT MANAGER, Meredith 2022 10:15 EST Exercise 5 Exercise [...] Shon PALACIO, Meredith 2022 10:15 EST Shon RESTAURANT ASSISTANT MANAGER, Meredith 2022 10:15 EST Shon RESTAURANT ASSISTANT MANAGER, Meredith 2022 10:15 EST Shon RESTAURANT ASSISTANT MANAGER, Meredith 2022 10:15 EST Exercise 9 Exercise 10 Exercise 11 Exercise 12 Exercise : Forward step downs Half dome PF/DF, INV/EV, CW/CCW Bilateral FWD stretch LAQ/ HS curls Repetition/Time : Resist or Assist : 2.5#/green Not Performed : X Comment : 2 then 4 tibial FWD translation Shon PALACIO, Meredith - 2022 10:15 EST Shon RESTAURANT ASSISTANT MANAGER, Meredith - 2022 10:15 EST Shon RESTAURANT ASSISTANT MANAGER, Meredith - 2022 10:15 EST Shon RESTAURANT ASSISTANT MANAGER, Meredith 2022 10:15 EST Exercise 14 Exercise 15 Exercise 16 Exercise 17 Exercise : Upright bike True [place] Strap Calf Stretch KE and KF Half dome PWB alphabet Repetition/Time : 30x3 Resist or Assist : 3 115# Not Performed : X X Comment : Shon PALACIO, Meredith - 2022 10:15 EST Shon RESTAURANT ASSISTANT MANAGER, Meredith - 2022 10:15 EST Shon RESTAURANT ASSISTANT MANAGER, Meredith - 2022 10:15 EST Shon RESTAURANT ASSISTANT MANAGER, [facility] - 2022 10:15 EST Exercise 18 Exercise 20 Exercise 22 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, telegraphic service dispatcher NEW: 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 posterior tib; athletic tape to foot to relieve PF and to soleus Gait trianing with B walking sticks Repetition/Time : done Resist or Assist : Not Performed : Comment : Shon PALACIO, Meredith - 2022 10:15 EST Shon RESTAURANT ASSISTANT MANAGER, Meredith - 2022 10:15 EST Shon RESTAURANT ASSISTANT MANAGER, Meredith - 2022 10:15 EST Normal [facility] PT Outpatient Time Spent Wit h Pt-Texton 2022 PT Outpatient Time Spent With Pt-Text PT Outpatient Time Spent With Patient Entered On: 2022 10:59 EST Performed On: 2022 10:59 EST by Meredith Menendez PTA Time Spent with Patient - Outpatient PT Time In : 10:15 EST PT Time Out : 11:00 EST PT Therapeutic Exercise Time : 45 minutes RESTAURANT ASSISTANT MANAGER Therapeutic Exercise Units : 3 units PT [...] Menendez PTA - 2022 10:59 EST Normal [facility] Office Visit (Family Gallito cordova)on 09-11-2022 Follow-up [...] Normal [facility] Office Visit (Family Medicin e)on 08-20-2022 Follow-up [...] Evaluate AND Treat Status: Active Requested for: [id number] AMA Intake Activity Log Entry by kyle [...] w/ Tomosynthesis; Status:Hold For - Scheduling; Requested for:18Jul2022; Radiologist to Determine Optimal Study : Y What are the patient's signs and symptoms ? : Annual Screening Mammogram Avascular necrosis of right talus (733.44) (M87.025) Patient Discussion/Summary Health maintenance Schedule mammogram Recommend [...] booster. Patient would like a referral to ob-collar folder operator. Patient reports she has lost weight 55 [...] Respiratory: no (more content not included)... Normal [facility] CORONAVIRUS 2019, SCREEN ASY MPTOMATICon 01-23-2022 SARS-CoV-2 (COVID-19) RNA MEKA+probe Ql (Unsp spec) Not detected Normal Not Detected [facility] Comment on above: Result Comment: . This [...] patient management decisions. Fact sheet for providers: https://www.fda.gov/media/355007/download Fact sheet for patients: https://www.fda.gov/media/415307/download This test has received FDA Emergency Use Authorization (EUA) and has been verified by [facility] ([facility]). This test is only authorized for the duration of time that circumstances exist to justify the authorization of the emergency use of in vitro diagnostic tests for the detection of SARS-CoV-2 virus and/or diagnosis of COVID-19 infection under section 564(b)(1) of the Act, 21 U.S.C. 360bbb-3(b)(1), unless the authorization is terminated or revoked sooner. [facility] is certified under CLIA-88 as qualified to perform high complexity testing. Testing is performed in the [facility] laboratories located at [address] [place] [address]. Performed By: #### C OVSC #### [address] [place] [address] Covid 19 Resultson 2 SARS-CoV-2 (COVID-19) RNA [...] You may also be contacted by the [place] Department of Health to see if any of your close [...] or Naproxen (Aleve) can also be used. Ludv-kfk-wjweeek cough and cold medicines can be used according to the instructions on the package. Some nfci-syh-gxmwdrx medicines also contain acetaminophen. Make sure you [...] water are not available, use alcohol-based hand group social worker. Avoid touching your eyes, nose, and mouth [...] 24 stanley (more content not included)... Normal [facility] CORONAVIRUS 2019, SCREEN ASY MPTOMATICon 01-22-2022 Lab Specimen Source Nasal, Nasopharyngeal Normal [facility] Comment on above: Performed By: #### C OVSC #### [facility] [address] [place] [address] Coronavirus 2019 RNA by PCR, Screening Asymptomticon 01-22-2022 Coronavirus 2019 RNA by PCR, Screening Asymptomtic Not detected Normal See Below QA-Rhiywyy-Dm [address] SJW 400 DO Work Phone: Comment [...] make patient management decisions.Fact sheet for providers: https://www.fda.gov/media/679968/downloadFact sheet for patients: https://www.fda.gov/media/183574/downloadThis test has received FDA Emergency Use Authorization (EUA) and has been verified by [facility] ([facility]). This test is only authorized for the duration of time that circumstances exist to justify the authorization of the emergency use of in vitro diagnostic tests for the detection of SARS-CoV-2 virus and/or diagnosis of COVID-19 infection under section 564(b)(1) of the Act, 21 U.S.C. 360bbb-3(b)(1), unless the authorization is terminated or revoked sooner. [facility] is certified under CLIA-88 as qualified to perform high complexity testing. Testing is performed in the [facility] laboratories located at [address] [place] [address]. ABDOMEN AP VIEWon 01-19-2022 ABDOMEN AP VIEW Patient Name: SERA WOO STUDY: ABDOMEN AP VIEW INDICATION: kidney stones N20.0: Kidney stones. COMPARISON: January 19 ACCESSION NUMBER(S): [id number] ORDERING CLINICIAN: ABI KARIMI FINDINGS: Postsurgical changes right upper quadrant. Bowel gas pattern unremarkable. No pathologic calcifications noted. IMPRESSION: Grossly unremarkable radiographs of the abdomen. Electronically signed by: FRANCIA HINKLE MD Normal [facility] BASIC METABOLIC PANELon 01-02 Anion gap [Moles/Vol] 12 mmol/L Normal 10 - 20 [facility] Comment on above: Performed By: #### B MP #### [address] [address] Calcium [Mass/Vol] 9.3 mg/dL Normal 8.6 - 10.3 [facility] Comment on above: Performed By: #### B MP #### [address] [address] Chloride [Moles/Vol] 104 mmol/L Normal 98 - 107 [facility] Comment on above: Performed By: #### B MP #### [address] [place] [address] Creatinine [Mass/Vol] 0.61 mg/dL Normal 0.50 - 1.05 [facility] Comment on above: Performed By: #### B MP #### [address] [place] [address] eGFR FEMALE >90 Normal >90 [facility] Comment on above: Result Comment: CALC ULATIONS OF ESTIMATED GFR ARE PERFORMED USING THE 2020 CKD-EPI STUDY REFIT EQUATION WITHOUT THE RACE VARIABLE FOR THE IDMS-TRACEABLE CREATININE METHODS. https://jasn.asnjournals.org/content/early/ASN.2746837160 Performed By: #### B MP #### [address] [address] Glucose [Mass/Vol] 96 mg/dL Normal 74 - 99 [facility] Comment on above: Performed By: #### B MP #### [address] [place] [address] HCO3 (Bld) [Moles/Vol] 24 mmol/L Normal 21 - 32 [facility] Comment on above: Performed By: #### B MP #### [address] [address] Potassium [Moles/Vol] 4.2 mmol/L Normal 3.5 - 5.3 [facility] Comment on above: Performed By: #### B MP #### [address] [address] Sodium [Moles/Vol] 136 mmol/L Normal 136 - 145 [facility] Comment on above: Performed By: #### B MP #### [address] [address] Urea nitrogen [Mass/Vol] 11 mg/dL Normal 6 - 23 [facility] Comment on above: Performed By: #### B MP #### [address] [address] CBCon 01-19-2022 Erythrocyte distribution width (RBC) [Ratio] 14.5 % Normal 11.5 - 14.5 [facility] Comment on above: Performed By: #### C BC #### [address] [place] [address] Hematocrit (Bld) [Volume fraction] 43.9 % Normal 36.0 - 46.0 [facility] Comment on above: Performed By: #### C BC #### [address] [place] [address] Hemoglobin (Bld) [Mass/Vol] 13.8 g/dL Normal 12.0 - 16.0 [facility] Comment on above: Performed By: #### C BC #### [address] [address] MCHC (RBC) [Mass/Vol] 31.4 g/dL Low 32.0 - 36.0 [facility] Comment on above: Performed By: #### C BC #### [address] [address] MCV (RBC) [Entitic vol] 88 fL Normal 80 - 100 [facility] Comment on above: Performed By: #### C BC #### [address] [address] NUCLEATED RBC 0.0 /100 WBC Normal 0.0 - 0.0 [facility] Comment on above: Performed By: #### C BC #### [address] [address] Platelets (Bld) [#/Vol] 348 10*3/uL Normal 150 - 450 [facility] Comment on above: Performed By: #### C BC #### [address] [address] RBC 5.00 x10E12/L Normal 4.00 - 5.20 [facility] Comment on above: Performed By: #### C BC #### [address] [address] WBC (Bld) [#/Vol] 7.6 10*3/uL Normal 4.4 - 11.3 [facility] Comment on above: Performed By: #### C BC #### [address] [place] [address] COAGULATION SCREENon 022 aPTT Coag (Bld) [Time] 31 s Normal 26 - 39 [facility] Comment on above: Result Comment: Note new reference range as of 10/03/2021 at 10:00am. Performed By: #### C OAGS #### [address] [place] [address] PT Coag (PPP) [Time] 11.2 s Normal 9.8 - 13.4 [facility] Comment on above: Result Comment: Note new reference range as of 10/03/2021 at 10:00am. Performed By: #### C OAGS #### [address] [place] [address] PT, INR 1.0 Normal 0.9 - 1.1 [facility] Comment on above: Performed By: #### C OAGS #### [address] [place] [address] Cult, Urineon 01-19-2022 Bacteria identified Cx Nom (U) JR-Hyzcwuz-Rw Zase 400 DO Work Phone: Laboratory - Chemistry and C hemistry - challengeon 01-19-2022 Anion gap [Moles/Vol] 12 mmol/L 10 - 20 EA-Yichipl-Tc [employer] SJW 400 DO Work Phone: Calcium [Mass/Vol] 9.3 mg/dL 8.6 - 10.3 IG-Finryom-Rg stlaVIDA Software SJW 400 DO Work Phone: Chloride [Moles/Vol] 104 mmol/L 98 - 107 RJ-Npnopcs-Qs stlaOakland Single Parents' NetworkW 400 DO Work Phone: CO2 [Moles/Vol] 24 mmol/L 21 - 32 MP-Urolog y-We stlaVIDA Software SJW 400 DO Work Phone: Creatinine [Mass/Vol] 0.61 mg/dL See Below XO-Budqljg-Ri stlake Line[employer]W 400 DO Work Phone: Comment on above: Reference Range: 0.5 0 - 1.05 Glucose [Mass/Vol] 96 mg/dL 74 - 99 BW-Nkumijo-Ux stfranko SJW 400 DO Work Phone: Potassium [Moles/Vol] 4.2 mmol/L 3.5 - 5.3 XG-Tuukwzq-Js stfranko SJW 400 DO Work Phone: Sodium [Moles/Vol] 136 mmol/L 136 - 145 JA-Utpsxds-Lo stfranko SJW 400 DO Work Phone: Urea nitrogen [Mass/Vol] 11 mg/dL 6 - 23 TM-Pjckoie-Ie stfranko SJW 400 DO Work Phone: Laboratory - Coagulationon 0 01-19-2022 aPTT Coag (PPP) [Time] 31 s 26 - 39 RC-Stfcbmw-Ar stfranko MOTLEY 400 DO Work Phone: Comment on above: Note new reference r yonny as of 10/03/2021 at 10:00am. INR Coag (PPP) [Relative time] 1.0 {INR} 0.9 - 1.1 TD-Qzvxmhy-Tz stfranko SJW 400 DO Work Phone: PT Coag (PPP) [Time] 11.2 s 9.8 - 13.4 DQ-Djqyese-Ok stfranko TAYLOR 400 DO Work Phone: Comment on above: Note new reference r yonny as of 10/03/2021 at 10:00am. Laboratory - Hematology and Cell countson 01-19-2022 Erythrocyte distribution width (RBC) [Ratio] 14.5 % See Below IX-Hvdkxuw-Sj rupinder MOTLEYW 400 DO Work Phone: Comment on above: Reference Range: 11. 5 - 14.5 Hematocrit (Bld) [Volume fraction] 43.9 % See Below QZ-Cylvhos-Sj stfranko MOTLEYW 400 DO Work Phone: Comment on above: Reference Range: 36. 0 - 46.0 Hemoglobin (Bld) [Mass/Vol] 13.8 g/dL See Below OO-Jftvvwd-Wa stlake SJW 400 DO Work Phone: Comment on above: Reference Range: 12. 0 - 16.0 MCHC (RBC) [Mass/Vol] 31.4 g/dL below low threshold See Below PP-Doekiuj-Xh stlake SJW 400 DO Work Phone: Comment on above: Reference Range: 32. 0 - 36.0 MCV (RBC) [Entitic vol] 88 fL 80 - 100 UH-Ahzbckq-Cm stlake SJW 400 DO Work Phone: Platelets (Bld) [#/Vol] 348 10*3/uL 150 - 450 JV-Wmmadki-Wv stlake SJW 400 DO Work Phone: RBC (Bld) [#/Vol] 5.00 {x10E12/L} See Below MP -Urology-We stlake SJW 400 DO Work Phone: Comment on above: Reference Range: 4.0 0 - 5.20 WBC (Bld) [#/Vol] 7.6 10*3/uL 4.4 - 11.3 MP-Uro logy-We stfranko SJW 400 DO Work Phone: No Panel Informationon 01-19 >90 >90 OO-Zmyybou-Rb stfranko SJW 400 DO Work Phone: Comment on above: CALCULATIONS OF BONNY MATED GFR ARE PERFORMED USING THE 2020 CKD-EPI STUDY REFIT EQUATION WITHOUT THE RACE VARIABLE FOR THE IDMS-TRACEABLE CREATININE METHODS.https://jasn.asnjournals.org/content//ASN.20 09171305 0.0 {/100_WBC} 0.0 - 0.0 MP-Urology -We stlake [place] 400 DO Work Phone: Radiologyon 01-19-2022 XR Abdomen AP Normal MP-Urology- We stlatraci [place]W 400 DO Work Phone: URINE CULTURE,BACTERIALon URINE CULTURE,BACTERIAL PATIENT: SERA WOO LOCATION: [facility] DEMOND#: [id number] : 76 AGE: SEX: F ORDERED BY: ABI KARIMI SOURCE: URINE COLLECTED: 01/19/22 09:45 ANTIBIOTICS AT JAIRON.: RECEIVED : 01/19/22 18:45 SITE: Unspecified R E S U L T S URINE CULTURE,BACTERIAL FINAL 01/20/22 11:20 MIXED URETHRAL ELIUD. Normal [facility] Comment on above: Performed By: #### U RINC #### [facility] [address] [place] [address] CORONAVIRUS 2019, SCREEN ASY MPTOMATICon 01-15-2022 DATE OF SYMPTOM ONSET [YYYYMMDD]? Canceled Normal [facility] Comment on above: Order Comment: TEST CORONAVIRUS 2018, SCREEN ASYMPTOMATIC WAS CANCELLED, 01/15/2022 11:50 Updated order placed for STAT test. Performed By: #### C OVSC #### [facility] [address] [place] [address] SARS-CoV-2 (COVID-19) RNA MEKA+probe Ql (Unsp spec) Canceled Normal [facility] Comment on above: Order Comment: TEST [...] patient management decisions. Fact sheet for providers: https://www.fda.gov/media/925931/download Fact sheet for patients: https://www.fda.gov/media/149395/download This test has received FDA Emergency Use Authorization (EUA) and has been verified by [facility] ([facility]). This test is only authorized for the duration of time that circumstances exist to justify the authorization of the emergency use of in vitro diagnostic tests for the detection of SARS-CoV-2 virus and/or diagnosis of COVID-19 infection under section 564(b)(1) of the Act, 21 U.S.C. 360bbb-3(b)(1), unless the authorization is terminated or revoked sooner. [facility] is certified under CLIA-88 as qualified to perform high complexity testing. Testing is performed in the [facility] laboratories located at [address] [place] [address]. Performed By: #### C OVSC #### [address] [place] [address] DATE OF SYMPTOM ONSET [YYYYMMDD]? Canceled Normal [facility] Comment on above: Order Comment: TEST CORONAVIRUS 2019, SCREEN ASYMPTOMATIC WAS CANCELLED, 01/15/2022 11:49 Updated order placed for STAT test. Performed By: #### C OVSC #### [address] [place] [address] SARS-CoV-2 (COVID-19) RNA MEKA+probe Ql (Unsp spec) Canceled Normal [facility] Comment on above: Order Comment: TEST [...] patient management decisions. Fact sheet for providers: https://www.fda.gov/media/965418/download Fact sheet for patients: https://www.fda.gov/media/023094/download This test has received FDA Emergency Use Authorization (EUA) and has been verified by [facility] ([facility]). This test is only authorized for the duration of time that circumstances exist to justify the authorization of the emergency use of in vitro diagnostic tests for the detection of SARS-CoV-2 virus and/or diagnosis of COVID-19 infection under section 564(b)(1) of the Act, 21 U.S.C. 360bbb-3(b)(1), unless the authorization is terminated or revoked sooner. [facility] is certified under CLIA-88 as qualified to perform high complexity testing. Testing is performed in the [facility] laboratories located at [address] [place] [address]. Performed By: #### C OVSC #### [address] [place] [address] Lab Specimen Source Nasal, Nasopharyngeal Normal [facility] Comment on above: Order Comment: TEST CORONAVIRUS 2018, SCREEN ASYMPTOMATIC WAS CANCELLED, 01/15/2022 11:49 Updated order placed for STAT test. Performed By: #### C OVSC #### [address] [place] [address] CORONAVIRUS 2019, SCREEN ASY MPTOMATICon 01-12-2022 Lab Specimen Source Nasal, Nasopharyngeal Normal [facility] Comment on above: Order Comment: TEST CORONAVIRUS 2018, SCREEN ASYMPTOMATIC WAS CANCELLED, 01/15/2022 11:50 Updated order placed for STAT test. Performed By: #### C OVSC #### [address] [place] [address] CORONAVIRUS 2019, SCREEN ASY MPTOMATICon 01-08-2022 Lab Specimen Source Nasal, Nasopharyngeal Normal [facility] Comment on above: Order Comment: TEST CORONAVIRUS 2018, SCREEN ASYMPTOMATIC WAS CANCELLED, 01/15/2022 11:50 Updated order placed for STAT test. Performed By: #### C OVSC #### [address] [place] [address] Chart Updateon 01-03-2022 Chart Update Chart Update CT images from [facility] received Right upper pole non-obstructing stone. Too small to determine HU Skin to stone distance 13cm. Signatures Electronically signed by : Abi Karimi MD; Jan 03 2022 8:30PM EST (Author) Normal [facility] Office Visit (Urology)on Follow-up visit Diagnoses/Problems Assessed Kidney stones (592.0) (N20.0) Orders Kidney stones Xray Abdomen AP View; Status:Hold For - Scheduling,Retrospective Authorization; Requested for:11Jan2022; Perform:[facility]; Due:11Apr2022; Last Updated By:Katie Scott; 12/28/2021 3:25:30 PM;Ordered; For:Kidney stones; Ordered By:Abi Karimi; Radiologist to Determine Optimal Study : Y What are the patient's signs and symptoms? : kidney stones Provider Impressions 41-year-old female see me regarding kidney stones Kindly referred by Cathleen Sanz H: Obesity, BMI greater than 50, depression, hypertension Saw Cathleen Sanz 12/18. Right renal colic beginning end of November, subsided to more achy tolerable pain. No longer symptomatic. First stone episode. CTU from [facility] 12/11/2021: Report only available. 5 mm nonobstructing [...] telehealth visit. kidney stones History of Present Zbagzkn14-sbxe-raw female see me regarding kidney stones Kindly referred by Cathleen Sanz [facility]: Obesity, BMI greater than 50, depression, hypertension Saw Cathleen Sanz 12/18. Right renal colic beginning end of November, subsided to more achy tolerable pain. No longer symptomatic. First stone episode. CTU from [facility] 12/11/2021: Report only available. 5 mm nonobstructing [...] 12-20-2021 Lab Specimen Source Nasal, Nasopharyngeal Normal [facility] Comment on above: Order Comment: TEST CORONAVIRUS 2018, SCREEN ASYMPTOMATIC WAS CANCELLED, 01/15/2022 11:50 Updated order placed for STAT test. Performed By: #### C OVSC #### [facility] [address] [place] [address] IO UA (automated w/o microsc opy)on 12-18-2021 Protein (U) [Mass/Vol] Negative NO-Obbehkd-Pd stlake [place] [address] Work Phone: IO UA (automated w/o microscopy) (+)small - 15 SH-Xfbixab-Wp [place] [address] Work Phone: IO UA (automated w/o microscopy) Negative LL-Hqszuvn-Jm [place] [address] Work Phone: IO UA (automated w/o microscopy) Normal (0.2-1.0 mg/dl) MG-Urolog y-We [place] [address] Work Phone: IO UA (automated w/o microscopy) 8.0 1 UU-Sgyxwiu-Dy [place] [address] Work Phone: IO UA (automated w/o microscopy) Trace BL-Xduluub-[place] [address] Work Phone: IO UA (automated w/o microscopy) 1.025 1 RP-Puanajd-Ji [place] [address] Work Phone: IO UA (automated w/o microscopy) Clear PL-Crypuuq-Yp [place] [address] Work Phone: IO UA (automated w/o microscopy) Yellow LY-Uaqnyyw-El [place] [address] Work Phone: IO Ultrasound, measurement p ost-void resid urine and/or bl cap; no imagon 12-18-2021 IO Ultrasound, measurement post-void resid urine and/or bl cap; no imag 5 mL PU-Ortfmlc-Yt [place] [address] Work Phone: Office Visit (Urology)on Follow-up visit Diagnoses/Problems Assessed Kidney stones (592.0) (N20.0) Renal colic (788.0) (N23) Right flank pain (789.09) (R10.9) Orders Hematuria IO Ultrasound, measurement post-void resid urine and/or bl cap; no imag; Status:Complete; Done: 92Wxv7427 08:17AM Performed:In Office; Due:23Aht7170;Ordered; For:Hematuria; Ordered By:Arleth Sanz; Kidney stones IO UA (automated w/o microscopy); Status:Complete; Done: 27Jhc4432 08:22AM Performed:In Office; Due:88Mhe1475;Ordered; For:Kidney stones; Ordered By:Arleth Sanz; Renal colic, Right flank pain Start: Ketorolac Tromethamine 10 MG Oral Tablet; TAKE 1 TABLET EVERY 6 HOURS WITH FOOD Rx By: Arleth Sanz; Dispense: 5 Days ; #:20 Tablet; Refill: 0;For: Renal colic, Right flank pain; NILSON = N; Verified Transmission to [facility] [id number]; Last Updated By: Amelia Longoria; 12/18/2021 8:45:56 [...] Chief Complaint Kidney Stones History of Present Djbnqco70p female who presents for evaluation of nephrolithiasis, [...] Migration; 2013-10-13 Foreign body in foot (917.6) (S90.9A) Hematuria (599.70) (R31.9) Hip injury, left, initial encounter (959.6) (S79.912A) History of ankle surgery (V45.89) (Z98.890) Morbid obesity with BMI of 50.0-59.9, adult (278.01,V85.43) (E66.01,Z68.43) Pharyngitis, acute (462) (J02.9) Preoperative clearance (V72.84) (Z01.818) Renal colic (788.0) (N23) Right flank pain (789.09) (R10.9) Sinus congestion (478.19) (R09.81) Sore throat (462) (J02. (more content not included)... Normal [employer] Tobacco Screening.on 022 Fall risk assessment a) No falls within the last year TC-Souvttj-Ny [place] [address] Work Phone: Tobacco use status CPHS b) No KS-Evmdegm-Er [place] [address] Work Phone: Cult, Urineon 12-11-2021 Bacteria identified Cx Nom (U) [facility] [employer] Work Phone: IO UA (automated w/o microsc opy)on 12-11-2021 Protein (U) [Mass/Vol] Negative Normal [facility] Work Phone: IO UA (automated w/o microscopy) (+)small - 15 Abnormal [facility] [employer] Work Phone: IO UA (automated w/o microscopy) Negative Normal [facility] [employer] Work Phone: IO UA (automated w/o microscopy) Normal (0.2-1.0 mg/dl) Normal [facility] [employer] Work Phone: IO UA (automated w/o microscopy) 6.0 1 [facility] [employer] Work Phone: IO UA (automated w/o microscopy) (++)moderate - 40 Abnormal [facility] [employer] Work Phone: IO UA (automated w/o microscopy) 1.020 1 [facility] Work Phone: IO UA (automated w/o microscopy) [facility] Work Phone: IO UA (automated w/o microscopy) Soila [facility] [employer] Work Phone: Office Visit ([facility])on 12-11-2021 Follow-up visit Diagnoses/Problems Right flank pain (789.09) (R10.9) Hematuria (599.70) (R31.9) Renal colic (788.0) (N23) Morbid obesity with BMI of 50.0-59.9, adult (278.01,V85.43) (E66.01,Z68.43) Orders Hematuria Start: Ciprofloxacin HCl - 500 MG Oral Tablet; one by mouth twice a day for 7 days Cult, Urine; Status:Resulted - Requires Verification,Retrospective Authorization; Done: 99Bgv8610 04:31PM Start: Ibuprofen 800 MG Oral Tablet; TAKE 1 TABLET EVERY 8 HOURS WITH FOOD NEEDED Start: Tamsulosin HCl - 0.4 MG Oral Capsule (Flomax); TAKE 1 CAPSULE Daily Hematuria, Renal colic, Right flank pain CT Abdomen and Pelvis without Contrast; Status:Hold For - Scheduling; Requested for:20Kxr9952; Patient taking Metformin or Derivatives? : No Radiologist to Determine Optimal Study : Y What are the patient's signs and symptoms? : Right-sided flank pain worse after urinating moderate blood in urine rule out kidney stone Right flank pain IO UA (automated w/o microscopy); Status:Resulted - Requires Verification,Retrospective Authorization; Done: 06Cxo6257 12:37PM Patient Discussion/Summary Urine test in office [...] CT Abdomen and Pelvis WO contrast Normal -[facility] Work Phone: URINE CULTURE,BACTERIALon URINE CULTURE,BACTERIAL PATIENT: SERA WOO [place] [facility] [place] [id number] : [birth year] AGE: SEX: F ORDERED BY: HETAL ALONSO SOURCE: URINE COLLECTED: 12/11/21 16:31 ANTIBIOTICS AT JAIRON.: RECEIVED : 12/12/21 00:54 SITE: Clean Catch/Voided R E S U L T S URINE CULTURE,BACTERIAL FINAL 12/12/21 17:23 NO SIGNIFICANT GROWTH. Normal [facility] Comment on above: Performed By: #### U [facility] #### [facility] [address] [place] [address] XR foot RT min 3V*on XR foot RT min 3V* [facility] Main [place] [address] [place] [address] XRay Report Signed Patient: Sera Woo MR#: [id number] 73 : 1980 Acct:[id number] Age/Sex: 40 / F ADM Date: 04/04/21 Loc: [facility] Room: Type: [facility] CLI Attending Dr: Francia Collazo DPM, MS Ordering Provider: Francia Collazo DPM, MS Date of Service: 04/04/21 XR/XR ankle RT min 3V*: M25.571 ([id number]) XR/XR foot RT min 3V*: M79.671 Copies to: Francia Collazo DPM, Right ankle and right foot 04/04/2021. CLINICAL [...] Saenz Jr., M.D.04/04/2021 2:40 PM Dictation Location: RADIO-PC-05 Transcribed By: NOE 04/04/21 1440 Dictated By: Mynor Saenz Jr, MD 04/04/21 1414 Signed By: 04/04/[address] [facility] XR ankle RT min 3V*on 2020 XR ankle RT min 3V* [facility] Main [address] [address] XRay Report Signed Patient: Sera Woo MR#: [id number] 73 : 1980 Acct:[id number] Age/Sex: 40 / F ADM Date: 03/21/21 Loc: [facility] Room: Type: [facility] Attending Dr: Francia Collazo DPM, MS Ordering [...] Chelsey Bobo M.D.03/21/2021 11:41 AM Dictation Location: RADIO-PC-11 Transcribed By: NOE 03/21/21 1141 Dictated By: Chelsey Bobo MD 03/21/21 1139 Signed By: 03/21/[address] [facility] XR ankle RT min 3V*on 2020 XR ankle RT min 3V* [address] [address] XRay Report Signed Patient: Sera Woo MR#: [id number] 73 : 1980 Acct:[id number] Age/Sex: 40 / F ADM Date: 02/21/21 Loc: [facility] Room: Type: [facility] Attending Dr: Francia Collazo DPM, MS Ordering Provider: Francia Collazo DPM, MS Date of Service: 02/21/21 XR/XR ankle RT min 3V*: M25.571 ([id number]) XR/XR foot RT min 3V*: M79.671 Copies [...] Chelsey Bobo M.D.02/21/2021 12:11 PM Dictation Location: [place] [address] Transcribed By: [facility] 02/21/21 1211 Dictated By: Chelsey Bobo MD 02/21/21 1207 Signed By: 02/21/[address] [facility] Initial Visit (Orthopaedic S urgery)on 10-10-2020 Initial [...] your surgery. Please call Pamela Dias at [phone] to schedule your surgery and if you have any further questions. Chief Complaint Pt here for right ankle pain. /tc History of Present Vxilgcb83-cnkp-xsm woman who presents today for evaluation of [...] at outside facility on 09/27/2020 and her academic registrar surgeon placed her on nonweightbearing restrictions with boot and 2 crutches. 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 She takes [place] nightly and Advil throughout the day but still states that her pain remains quite high. Past medical history of morbid obesity Past surgical history of open reduction of the talus right foot 04/12/[facility] Dr[facility] Duran Family history noncontributory to presenting problem Social history non-smoker Medications include control pill, Advil and [place] REVIEW OF SYSTEMS Constitutional: no unplanned weight [...] or Percocet. She does do well with [place] and Dilaudid. We discussed with her that [...] voiced understanding and agreement. Note dictated with [employer] tender software, completed without full type editing to avoid delay. Vitals Vital Signs Recorded: 81Drh4425 05:30PM Height5 ft 5 in Txmcio980 lb BMI Hpoyxwldzt48.93 BSA Calculated2.31 Signatures Electronically signed by : Ebony Shah MD; Oct 10 2020 5:36PM EST (Author) Normal [facility] Vital Signs Date Time Vital Sign Value Performing Clinician Facility 12-27-2023 11:24-0500 Body height 167.6 cm Hetal Alonso MD Work Phone: [facility] 12-27-2023 11:24-0500 Body mass index (BMI) [Ratio] 53.75 kg/m2 Hetal Alonso MD Work Phone: [facility] 12-27-2023 11:24-0500 Body temperature 98.01 [degF] Hetal Alonso MD Work Phone: 3(085)944-125481 [place] [address] 12-27-2023 11:24-0500 Body weight 151.05 kg Hetal Alonso MD Work Phone: 9(683)654-989581 [place] [address] 12-27-2023 11:24-0500 Diastolic blood pressure 80 mm[Hg] Hetal Alonso MD Work Phone: 4(660)735-330862 [place] [address] 12-27-2023 11:24-0500 Heart rate 80 /min Hetal Alonso MD Work Phone: 0(818)584-818581 [place] [address] 12-27-2023 11:24-0500 Systolic blood pressure 138 mm[Hg] Hetal Alonso MD Work Phone: 1(298)045-705362 [place] [address] 10-21-2023 13:20-0500 Diastolic blood pressure 80 mm[Hg] Hetal Alonso MD Work Phone: 0(307)535-377262 [place] [address] 10-21-2023 13:20-0500 Systolic blood pressure 130 mm[Hg] Hetal Alonso MD Work Phone: 9(744)901-993962 [place] [address] 10-21-2023 13:05-0500 Body height 167.6 cm Hetal Alonso MD Work Phone: 4(505)733-858562 [place] [address] 10-21-2023 13:05-0500 Body mass index (BMI) [Ratio] 53.75 kg/m2 Hetal Alonso MD Work Phone: 2(108)185-022962 [place] [address] 10-21-2023 13:05-0500 Body temperature 98.2 [degF] Hetal Alonso MD Work Phone: 5(170)524-968362 [place] [address] 10-21-2023 13:05-0500 Body weight 151.05 kg Hetal Alonso MD Work Phone: 8(290)540-612581 [place] [address] 10-21-2023 13:05-0500 Heart rate 92 /min Hetal Alonso MD Work Phone: 2(462)742-576081 [place] [address] 10-21-2023 13:05-0500 SaO2% (BldA) [Mass fraction] 96 % Hetal Alonso MD Work Phone: 4(242)966-970781 [place] [address] 06-28-2023 11:54-0400 Diastolic blood pressure 80 mm[Hg] Hetal Alonso MD Work Phone: [facility] 06-28-2023 11:54-0400 Systolic blood pressure 130 mm[Hg] Hetal Alonso MD Work Phone: [facility] 06-28-2023 11:08-0400 Body mass index (BMI) [Ratio] 51.81 kg/m2 Hetal Alonso MD Work Phone: [facility] 06-28-2023 11:08-0400 Body temperature 97.81 [degF] Hetal Alonso MD Work Phone: [facility] 06-28-2023 11:08-0400 Body weight 145.6 kg Hetal Alonso MD Work Phone: [facility] 06-28-2023 11:08-0400 Heart rate 94 /min Hetal Alonso MD Work Phone: [facility] 04-29-2023 10:45-0400 Body height 165.1 cm Evan Feliciano Other [facility] Other 04-29-2023 10:45-0400 Diastolic blood pressure 80 mm[Hg] Evan Feliciano Other [facility] Other 04-29-2023 10:45-0400 SaO2% (BldA) [Mass fraction] 98 % Evan Feliciano Other [facility] Other 04-29-2023 10:45-0400 Systolic blood pressure 140 mm[Hg] Evan Feliciano Other [facility] Other 04-05-2023 10:00-0400 Body weight 140.62 kg Evan Feliciano Other [facility] Other 04-05-2023 10:00-0400 SaO2% (BldA) [Mass fraction] 98 % Evan Feliciano Other [facility] [employer] Other 09-11-2022 10:28-0500 Body height 167.64 cm Hetal Alonso Work Phone: [facility] Work Phone: 09-11-2022 10:28-0500 Body mass index (BMI) [Ratio] 43.74 kg/m2 Hetal Alonso Work Phone: [facility] Work Phone: 09-11-2022 10:28-0500 Body surface area Derived from formula 2.28 m2 Hetal Alonso Work Phone: [facility] Work Phone: 09-11-2022 10:28-0500 Body temperature 96.9 [degF] Hetal Alonso Work Phone: [facility] Work Phone: 09-11-2022 10:28-0500 Body weight 122.93 kg Hetal Alonso Work Phone: [facility] Work Phone: 09-11-2022 10:28-0500 Diastolic blood pressure 76 mm[Hg] Hetal Alonso Work Phone: [facility] Work Phone: 09-11-2022 10:28-0500 Heart rate 79 /min Hetal Alonso Work Phone: [facility] Work Phone: 09-11-2022 10:28-0500 SaO2% (BldA) [Mass fraction] 100 % Hetal Alonso Work Phone: [facility] Work Phone: 09-11-2022 10:28-0500 Systolic blood pressure 124 mm[Hg] Hetal Alonso Work Phone: [facility] Work Phone: 08-20-2022 09:28-0400 Body height 167.64 cm Hetal Alonso Work Phone: [facility] Work Phone: 08-20-2022 09:28-0400 Body mass index (BMI) [Ratio] 43.9 kg/m2 Hetal Alonso Work Phone: [facility] Work Phone: 08-20-2022 09:28-0400 Body surface area Derived from formula 2.28 m2 Hetal Alonso Work Phone: [facility] Work Phone: 08-20-2022 09:28-0400 Body temperature 96.9 [degF] Hetal Alonso Work Phone: [facility] Work Phone: 08-20-2022 09:28-0400 Body weight 123.38 kg Hetal Alonso Work Phone: [facility] Work Phone: 08-20-2022 09:28-0400 Diastolic blood pressure 72 mm[Hg] Hetal Alonso Work Phone: [facility] Work Phone: 08-20-2022 09:28-0400 Heart rate 78 /min Hetal Alonso Work Phone: [facility] Work Phone: 08-20-2022 09:28-0400 SaO2% (BldA) [Mass fraction] 99 % Hetal Alonso Work Phone: [facility] Work Phone: 08-20-2022 09:28-0400 Systolic blood pressure 124 mm[Hg] Hetal Alonso Work Phone: [facility] Work Phone: 07-18-2022 09:42-0400 Body height 167.64 cm Hetal Alonso Work Phone: [facility] Work Phone: 07-18-2022 09:42-0400 Body mass index (BMI) [Ratio] 44.87 kg/m2 Hetal Alonso Work Phone: [facility] Work Phone: 07-18-2022 09:42-0400 Body surface area Derived from formula 2.3 m2 Hetal Alonso Work Phone: [facility] Work Phone: 07-18-2022 09:42-0400 Body weight 126.1 kg Hetal Alonso Work Phone: [facility] Work Phone: 07-18-2022 09:42-0400 Diastolic blood pressure 72 mm[Hg] Hetal Alonso Work Phone: [facility] Work Phone: 07-18-2022 09:42-0400 Heart rate 97 /min Hetal Alonso Work Phone: [facility] Work Phone: 07-18-2022 09:42-0400 SaO2% (BldA) [Mass fraction] 99 % Hetal Alonso Work Phone: [facility] Work Phone: 07-18-2022 09:42-0400 Systolic blood pressure 118 mm[Hg] Hetal Alonso Work Phone: [facility] Work Phone: 12-18-2021 08:10-0500 Body height 167.64 cm Hetal Alonso Work Phone: [facility] [place] [address] Work Phone: 12-18-2021 08:10-0500 Body mass index (BMI) [Ratio] 51.65 kg/m2 Hetal Alonso Work Phone: UC-Miqwdhm-Qlozsnng [place] [address] Work Phone: 12-18-2021 08:10-0500 Body surface area Derived from formula 2.44 m2 Hetal Alonso Work Phone: YO-Uwtinxu-Asqzsfrc [place] [address] Work Phone: 12-18-2021 08:10-0500 Body temperature 96.9 [degF] Hetal Alonso Work Phone: IX-Mmhvsrp-Orccgjsp [place] [address] Work Phone: 12-18-2021 08:10-0500 Body weight 145.15 kg Hetal Alonso Work Phone: VK-Rpxotvv-Zemidqlw [place] [address] Work Phone: 12-18-2021 08:10-0500 Diastolic blood pressure 99 mm[Hg] Hetal Alonso Work Phone: EP-Swyrgzk-Okognjzw [place] [address] Work Phone: 12-18-2021 08:10-0500 Heart rate 106 /min Hetal Alonso Work Phone: XL-Qcxnefc-Ingaminh [place] [address] Work Phone: 12-18-2021 08:10-0500 Systolic blood pressure 155 mm[Hg] Hetal Alonso Work Phone: KD-Ohsoluo-Vknlmzuf [place] [address] Work Phone: 12-11-2021 12:24-0500 Body height 167.64 cm Hetal Alonso Work Phone: [facility] Work Phone: 12-11-2021 12:24-0500 Body mass index (BMI) [Ratio] 51.65 kg/m2 Hetal Alonso Work Phone: [facility] Work Phone: 12-11-2021 12:24-0500 Body surface area Derived from formula 2.44 m2 Hetal Alonso Work Phone: [facility] Work Phone: 12-11-2021 12:24-0500 Body temperature 98.3 [degF] Hetal Alonso Work Phone: [facility] Work Phone: 12-11-2021 12:24-0500 Body weight 145.15 kg Hetal Alonso Work Phone: [facility] Work Phone: 12-11-2021 12:24-0500 Diastolic blood pressure 80 mm[Hg] Hetal Alonso Work Phone: [facility] Work Phone: 12-11-2021 12:24-0500 Heart rate 80 /min Hetal Alonso Work Phone: [facility] Work Phone: 12-11-2021 12:24-0500 Systolic blood pressure 120 mm[Hg] Hetal Alonso Work Phone: [facility] Work Phone: 08-11-2021 15:04-0400 Body height 167.64 cm Hetal Alonso Work Phone: [facility] Work Phone: 08-11-2021 15:04-0400 Body mass index (BMI) [Ratio] 51.65 kg/m2 Hetal Alonso Work Phone: [facility] Work Phone: 08-11-2021 15:04-0400 Body surface area Derived from formula 2.44 m2 Hetaledison Alonso Work Phone: [facility] Work Phone: 08-11-2021 15:04-0400 Body temperature 98.8 [degF] Hetal Hemal Alonso Work Phone: [facility] Work Phone: 08-11-2021 15:04-0400 Body weight 145.15 kg Hetal Hemal Alonso Work Phone: [facility] Work Phone: 08-11-2021 15:04-0400 Diastolic blood pressure 78 mm[Hg] Hetal Hemal Alonso Work Phone: [facility] Work Phone: 08-11-2021 15:04-0400 Heart rate 108 /min Hetal Hemal Alonso Work Phone: [facility] Work Phone: 08-11-2021 15:04-0400 Heart rate 80 /min Hetal Hemal Alonso Work Phone: [facility] Work Phone: 08-11-2021 15:04-0400 Systolic blood pressure 142 mm[Hg] Hetal K Alonso Work Phone: [facility] Work Phone: 08-11-2021 15:04-0400 Systolic blood pressure 130 mm[Hg] Hetal K Alonso Work Phone: [facility] Work Phone: 03-24-2021 09:41-0400 Body mass index (BMI) [Ratio] 52.13 kg/m2 Hetal Hemal Alonso Work Phone: [facility] Work Phone: 03-24-2021 09:41-0400 Body surface area Derived from formula 2.45 m2 Hetal Alonso Work Phone: [facility] Work Phone: 03-24-2021 09:41-0400 Body temperature 97.7 [degF] Hetal Alonso Work Phone: [facility] Work Phone: 03-24-2021 09:41-0400 Body weight 146.51 kg Hetla Alonso Work Phone: [facility] Work Phone: 03-24-2021 09:41-0400 Diastolic blood pressure 86 mm[Hg] Hetal Alonso Work Phone: [facility] Work Phone: 03-24-2021 09:41-0400 Heart rate 64 /min Hetal Alonso Work Phone: [facility] Work Phone: 03-24-2021 09:41-0400 Systolic blood pressure 152 mm[Hg] Hetal Alonso Work Phone: [facility] Work Phone: Encounters Encounter Date Encounter Type Care Provider Facility Start: 12-27-2023 End: 12-27-2023 ambulatory HETAL Recio [facility] Ambulatory Start: 12-27-2023 End: 12-27-2023 Office outpatient visit 25 minutes Hetal Alonso MD Work Phone: [facility] Comment on above: Adjustment disorder with mixed anxiety and depressed mood (Primary Dx); Weakness of both lower extremities; Bilateral hip pain Start: 10-21-2023 End: 10-22-2023 ambulatory HETAL ALONSO MD Facility:[id number] Start: 10-21-2023 End: 10-21-2023 ambulatory HETAL Recio [facility] Ambulatory Start: 10-21-2023 End: 10-21-2023 Office outpatient visit 15 minutes Hetal Alonso MD Work Phone: [facility] Comment on above: Bronchitis (Primary Dx) Start: 07-18-2023 End: 07-18-2023 ambulatory DEWAYNE GARRISON MD Facility:[facility] Start: 06-28-2023 End: 06-28-2023 ambulatory HETAL [facility] Ambulatory Start: 06-28-2023 End: 06-28-2023 Office outpatient visit 15 minutes Hetal Alonso MD Work Phone: [facility] Comment on above: 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); Benign essential hypertension; Morbid obesity with body mass index (BMI) of 50.0 to 59.9 in adult (CMS/HCC) Start: 05-30-2023 End: 05-30-2023 ambulatory Evan Feliciano Other [facility] Other Start: 05-30-2023 Telephone encounter Evan Braden [facility] Start: 05-16-2023 (PROC) PROCEDURE Evan Felicaino [facility] Start: 05-16-2023 End: 05-16-2023 ambulatory Evan Braden Other [facility] Other Start: 05-14-2023 End: 05-15-2023 ambulatory HETAL ALONSO Facility:[facility] Start: 05-09-2023 End: 07-06-2023 ambulatory HETAL ALONSO Facility:[id number] Start: 05-01-2023 End: 05-01-2023 ambulatory Evan Braden Other [facility] Other Start: 05-01-2023 Telephone encounter Evan Braden [facility] Start: 04-29-2023 End: 04-29-2023 ambulatory Evan Braden Other [facility] Other Start: 04-29-2023 Office outpatient vi sit 25 minutes Evan Braden [facility] Start: 04-15-2023 End: 04-16-2023 ambulatory HETAL ALONSO Facility:[id number] Start: 04-05-2023 End: 04-05-2023 ambulatory Evan Feliciano Other [facility] Other Start: 04-05-2023 Office consultation new/estab patient 60 min Evan Feliciano [facility] [place] Start: 04-05-2023 Telephone encounter Evan Feliciano [facility] Start: 03-07-2023 ambulatory [facility]AL [facility]ONSO [facility] Start: 02-25-2023 ambulatory HETAL ALONSO Facility: [facility] Start: 02-20-2023 End: 02-21-2023 ambulatory FRANCIA COLLAZO Facility:[facility] Start: 02-06-2023 End: 05-04-2023 ambulatory HETAL ALONSO Facility:[id number] Start: 01-10-2023 End: 01-10-2023 ambulatory FRANCIA COLLAZO Facility:[facility] Start: 01-08-2023 Encounter for other preprocedural examination FRANCIA Anderson [facility] Start: 01-08-2023 Encounter for preprocedural cardiovascular examination FRANCIA Anderson [facility] Start: 01-08-2023 Encounter for preprocedural laboratory examination FRANCIA Anderson [facility] Start: 01-08-2023 End: 01-09-2023 ambulatory HETAL ALONSO Facility:[facility] Start: 01-07-2023 End: 01-08-2023 ambulatory FRANCIA COLLAZO Facility:[facility] Start: 01-07-2023 End: 01-08-2023 Encounter for preprocedural laboratory examination FRANCIA Anderson [facility] Facility:[facility]1 Start: 12-19-2022 End: 12-20-2022 ambulatory HETAL ALONSO Facility:[facility] Start: 11-21-2022 End: 11-22-2022 ambulatory FRANCIA Anderson [facility] Facility:H1 Start: 11-14-2022 End: 11-15-2022 ambulatory FRANCIA Anderson [facility] Facility:H1 Start: 2022 End: 02-02-2023 ambulatory HETAL ALONSO Facility:[id number] Start: 09-11-2022 Current tobacco non- user cad cap copd pv dm Hetaledison Alonso Work Phone: [facility] Work Phone: Start: 09-11-[address] HETAL ALONSO Facility:[id number] Start: 08-20-[address] HETAL ALONSO Facility:[id number] Start: 08-20-2022 Current tobacco non- user cad cap copd pv dm Hetal Alonso Work Phone: [facility] Work Phone: Start: 07-25-2022 End: 07-26-2022 ambulatory FRANCIA Anderson [facility] Facility:H1 Start: 07-18-2022 Current tobacco non- user cad cap copd pv dm Hetal Alonso Work Phone: [facility] Work Phone: Start: 07-18-[address] HETAL ALONSO Facility:[id number] Start: 04-25-2022 End: 04-26-2022 ambulatory FRANCIA Anderson [facility] Facility:H1 Start: 03-23-2022 Rx Renewal Hetal Ferrari s Work Phone: [facility] Work Phone: Start: 03-14-2022 ambulatory FRANCIA Anderson [facility] Faci lity:H1 Start: 01-23-2022 Chart Update Hetal Ferrari s Work Phone: [facility] [address] DO Work Phone: Start: 01-03-2022 Chart Update Hetal K Water s Work Phone: MD-Pbtttfw-Ziuckcvt [facility] 400 DO Work Phone: Start: 12-28-[address] HETAL ALONSO Facility:[id number] Start: 12-20-2021 AUDIT Hetal Ferrari s Work Phone: GT-Zbtttyc-Vgdhzcyj [facility] 400 DO Work Phone: Start: 12-18-2021 NPV, Provider: Yvon,Arleth, Status: Pen, Time: 8:00 AM Hetal Alonso Work Phone: [facility] Work Phone: Start: 12-18-2021 Office outpatient ne w 45 minutes Hetal Alonso Work Phone: [facility] [id number] Work Phone: Start: 12-18-[address] HETAL ALONSO Facility:[id number] Start: 12-11-2021 Current tobacco non- user cad cap copd pv dm Hetal Alonso Work Phone: [facility] Work Phone: Start: 12-11-[address] HETAL ALONSO Facility:[id number] Start: 08-11-2021 Current tobacco non- user cad cap copd pv dm Hetal Alonso Work Phone: [facility] Work Phone: Start: 08-11-2021 Patient encounter procedure Hetal Alonso Work Phone: [facility] Work Phone: Start: 03-24-2021 Current tobacco non- user cad cap copd pv dm Hetal Alonso Work Phone: [facility] Work Phone: Preoperative state Hetal choudhury Work Phone: [facility] Work Phone: Procedures Date Procedure Procedure Detail Performing Clinician Ankle Surgery Hetal turner Work Phone: Comment on above: talus; Cholecystectomy Hetal ho Work Phone: Plan of Treatment Date Care Activity Detail Author Start: 2028 Zoster Vaccines (1 o f 2) Zoster Vaccines (1 of 2) [facility] Start: 10-21-2023 End: 10-21-2024 XR Chest 2 Views XR chest 2 views Imaging Routine Bronchitis Expected: 10/21/2023, Expires: 10/21/2024 [facility] Service Area Work Phone: Comment on above: Expected: 10/21/2023 , Expires: 10/21/2024 Start: 07-05-2023 COVID-19 Vaccine ( season) COVID-19 Vaccine () [facility] Start: 07-05-2023 Influenza vaccination Influenza Vacc ine (#1) [facility] Start: 08-20-2022 [facility], Provider: Hetal Alonso, Status: Pen, Time: 8:45 AM [facility], Provider: Hetal Alosno, Status: Pen, Time: 8:45 AM [facility] Work Phone: Start: 01-16-2022 [facility], Provider: Abi Karimi, Status: Pen, Time: 10:30 AM [facility], Provider: Abi Karimi, Status: Pen, [facility]: [facility] Work Phone: Start: 12-28-2021 [facility], Provider : Abi Karimi, Status: Pen, Time: 2:30 PM [facility], Provider: Abi Karimi, Status: Pen, Time: 2:30 PM [facility] [address] Work Phone: Start: 10-31-2021 COVID-19 Vaccine (4 - Pfizer series) COVID-19 Vaccine (4 - Pfizer series) [facility] Start: 04-21-2021 [facility], Provider: Hetal Alonso, Status: Pen, Time: 2:30 PM [facility], Provider: Hetal Alonso, Status: Pen, Time: 2:30 PM [facility] Work Phone: Start: 2018 Screening for malign ant neoplasm of breast Mammogram [facility] Start: 2000 DTaP/Tdap/Td Vaccine s (1 - Tdap) DTaP/Tdap/Td Vaccines (1 - Tdap) [facility] Start: 1999 Screening for malign ant neoplasm of cervix [facility] Start: 1996 Diabetes mellitus screening Diabetes Screening [facility] Start: 1996 Hepatitis C screening Hepatitis C Sc reening [facility] Start: 1979 MMR Vaccines (1 of 1 - Standard series) MMR Vaccines (1 of 1 - Standard series) [facility] Start: 1978 Hepatitis B Vaccines (1 of 3 - 3-dose series) Hepatitis B Vaccines (1 of 3 - 3-dose series) [facility] Start: 1978 HIV screening HIV Screening [facility] Start: 1978 Lipid panel Lipid Panel [facility] Start: 1978 Screening for malign ant neoplasm of colon [facility] Start: 1978 Yearly Adult Physical Yearly Adult P hysical [facility] Immunizations Immunization Date Immunization Notes Care Provider Tsering griffin 09-05-2021 Pfizer-BioNTech COVI D-19 Vacc 30 MCG/0.3ML Intramuscular Suspension [employer] Work Phone: [facility]art[facility] Work Phone: 02-12-2021 Pfizer-BioNTech COVI D-19 Vacc 30 MCG/0.3ML Intramuscular Suspension [employer] Work Phone: [facility] Work Phone: Comment on above: Series: 01-22-2021 Pfizer-BioNTech COVI D-19 Vacc 30 MCG/0.3ML Intramuscular Suspension [employer] Work Phone: [facility] [facility] Tickets[employer]ke [employer] Work Phone: Comment on above: Series: Payers Date Payer Category Payer Unknown 1980 Unknown [id number] 2.16. [id number] 1978 Unknown [id number] 2.16. [id number] 1978 Unknown [id number] 2.16. 840.1.423668.3.579.2.356 1978 Unknown [id number] 2.16. 840.1.086354.3.579.2.356 1978 Unknown [id number] 2.16. 840.1.690626.3.579.2.356 1978 Unknown [id number] 2.16. 840.1.305173.3.579.2.356 1978 Unknown [id number] 2.16.84 0.1.226148.3.579.2.593 1978 Unknown [id number] 2.16.84 0.1.654596.3.579.2.593 1978 Unknown [id number] 2.16.84 0.1.517519.3.579.2.593 1978 Unknown [id number] 2.16.84 0.1.680452.3.579.2.593 1978 Unknown [id number] 2.16.84 0.1.465724.3.579.2.593 1978 Unknown [id number] 2.16.84 0.1.825374.3.579.2.593 1978 Unknown [id number] 2.16.84 0.1.059157.3.579.2.593 1978 Unknown [id number] 2.16.84 0.1.481515.3.579.2.593 1978 Unknown [id number] 2.16.8 40.1.839437.3.579.2.159 1978 Unknown [id number] 2.16.8 40.1.244291.3.579.2.159 1978 Unknown [id number] 2.16.8 40.1.689017.3.579.2.159 1978 Unknown [id number] 2.16.8 40.1.818058.3.579.2.159 1978 Unknown [id number] 2.16.8 40.1.737925.3.579.2.159 1978 Unknown [id number] 2.16.8 40.1.981118.3.579.2.159 1978 Unknown [id number] 2.16.8 40.1.750516.3.579.2.159 1978 Unknown [id number] 2.16.8 40.1.433916.3.579.2.159 1978 Unknown [id number] 2.16.8 40.1.977682.3.579.2.159 1978 Unknown [id number] 2.16.8 40.1.007759.3.579.2.159 1978 Unknown [id number] 2.16.8 40.1.530026.3.579.2.159 1978 Unknown [id number] 2.16.8 40.1.104986.3.579.2.159 1978 Unknown [id number] 2.16.8 40.1.761858.3.579.2.159 1978 Unknown [id number] 2.16.8 40.1.992231.3.579.2.1244 1978 Unknown [id number] 2.16.8 40.1.515610.3.579.2.1244 1978 Unknown [id number] 2.16.8 40.1.298140.3.579.2.1244 1959 Unknown [id number] Social History Date Type Detail Facility Start: 07-18-2023 End: 12-27-2023 Never a smoker Never a smoker [facility] Work Phone: Start: 07-18-2023 End: 12-27-2023 Sex Assigned At [facility] [employer] [facility] Other Start: 06-28-2023 Tobacco smoking status NJIS Never smoked tobacco [facility] Work Phone: Start: 06-28-2023 Tobacco use and exposure Smokeless tobacco non-user [facility] Work Phone: Start: 07-18-2023 End: 12-27-2023 Alcohol intake Current drinker of alcohol (finding) [facility] Work Phone: Start: 1980 [facility] Start: 10-11-2023 End: 12-27-2023 Exposure to SARS-CoV-2 (event) Not sure [facility] Clinical Notes 04-04-2020 to 12-27-2023 Hetal Alonso [...] Hetal Alonso MD documented in this encounter [facility] Work Phone: 10-21-2023 Note PROCEDURE: XR CHEST [...] OLIVER INFANTE MD Signed Out: 10/21/23 14:17:29 [facility] 10-21-2023 History of Present illness Narrative Subjective [...] Hetal Alonso MD documented in this encounter [facility] Work Phone: 07-18-2023 Evaluation + Plan note Associated Problem(s): Morbid obesity with body mass index (BMI) of 50.0 to 59.9 in adult (CMS/HCC) Above normal BMI nutrition and physical activity reviewed [facility] Work Phone: 07-18-2023 Miscellaneous Notes Associated Problem(s): Morbid obesity with body mass index (BMI) of 50.0 to 59.9 in adult (CMS/HCC) Above normal BMI nutrition and physical activity reviewed Associated Problem(s): Avascular necrosis of right talus (CMS/HCC) Persistant pain Continue current managment documented in this encounter [facility] Work Phone: 07-18-2023 Evaluation + Plan note Associated Problem(s): Avascular necrosis of right talus (CMS/HCC) Persistant pain Continue current managment [facility] Work Phone: 06-28-2023 History of Present [...] is no history of angina, kidney disease, CAD/LA, CVA, heart failure, left ventricular hypertrophy, PVD [...] Hetal Alonso MD documented in this encounter [facility] Work Phone: 04-29-2023 Evaluation note Encounter [...] (ICD-10 - G89.29) Follow up after procedure [facility] Other 06-16-2023 NoteProcedure: MR Lumbar Spine without [...] By: QUENTIN CARNEY MD Signed Out: 04/19/23 16:05:36[facility]06-02-2023 Evaluation note* Encounter Date Diagnosis Assessment Notes [...] - M25.571) Proceed with sympathetic nerve block. 02 Manish, 2023 Lumbar radiculopathy (ICD-10 - M54.16) Stable, proceed [...] negative findings were considered in medical decision-making. [facility] Other 05-31-2023 NotePT Outpatient Progress Note Entered [...] wedge to encourage calcaneus into more eversion. [place] okay to patient butwill have patient use [...] Pain Score : 6 Abdoulaye Aguiar PT 04/03/2023 12:59 EDT Aquatic Therapy Aqua Ankle - grid Exercise 1 Exercise 2 Exercise 3 Exercise 4 Exercise : Warm-up walk Calf stretch Ankle Pumps, Ankle circles, Alphabet trace One leg stance Reps/Time : 5' 20x3 2x20 30x3 Comment : TRACI and KF alphabet x1 Cosme PT, Abdoulaye [...] Comment : ABDuction, hang with noodle Cosme DAWN, Abdoulaye 04/03/2023 12:59 EDT Cosme [...] 0 Abdoulaye Aguiar PT - 04/03/2023 12[facility] NotePT Outpatient Progress [...] wedge to encourage calcaneus into more eversion. [place] okay to patient butwill have patient use for awhile to ascertain tolerability. Attending Physician : Name: STEFAN SOTO KEVINJuanito Aguiar PT, Abdoulaye 03/29/2023 9:02 EDT Pain Assessment Pain Location : Ankle Laterality : Right Self Report Pain : Numeric rating scale Numeric Pain Scale : 6 Numeric Pain Score : 6 Cosme DAWN, Abdoulaye 03/29/2023 13:40 EDT Therapeutic Exercise Custom Therapeutic Exercise Exercise 1 Exercise 2 Exercise 3 Exercise 4 Exercise : Ankle ROM Right Towel Stretch t-band 4X Seated AROM (PF/DF)(Inv/Ev) Equipment/Device : Repetition/Time : x20 ea 20x3 KE and KF 15x2 x20 ea Resist or Assist : Red Not Performed : X HEP Given : Comment : Cosme DAWN, Abdoulaye 03/29/2023 13:40 EDT Cosme DAWN, Abdoulaye 03/29/2023 13:40 EDT Erwin Aguiar PTe 03/29/2023 13:40 EDT Erwin Aguiar PTe 03/29/2023 13:40 EDT Exercise 5 Exercise 6 Exercise 7 Exercise 8 Exercise : Seated Baps Standing with relaxed foot Modified tandem stand Seated Dome Equipment/Device : Repetition/Time : 10 ea 1 minute 10x2 3x10 Resist or Assist : Not Performed : X X X HEP Given : Comment : x4 way and CW/CCW Cosme DAWN, Abdoulaye 03/29/2023 13:40 EDT Cosme DAWN Abdoulaye [...] : Abdoulaye Aguiar PT 03/29/2023 13:40 EDT Abdoulaye Aguiar PT 03/29/2023 13:40 EDT Cosme DAWN Abdoulaye - 03/29/2023 13:40 EDT Abdoulaye Aguiar PT 03/29/2023 13:40 EDT Exercise 14 Exercise : Gait training without AD Equipment/Device : Repetition/Time : 25 min Resist or Assist : Not Performed : HEP Given : Comment : Abdoulaye Aguiar PT 03/29/2023 13:40 EDT Manual Therapy Manual Therapy Activity 1 Activity 2 Type/Technique : IASTM, Manual stretch, Myofascial/Soft tissue mobilization Region : Right ankle Equipment/Medium : Deep prep, Smart tools Deep prep Descriptor : 15' Abdoulaye Aguiar PT 03/29/2023 13:40 EDT Abdoulaye Aguiar PT 03/29/2023 13:40 EDT Education *Barriers To Learning : None evident *Teaching Method : Explanation Patient Education - PT Outpatient : Home exercise program - progression/modification Abdoulaye Aguiar PT 03/29/2023 13:40 EDT Assessment PT Clinical Assessment [...] 0 Abdoulaye Aguiar PT - [facility] Outpatient Progress Note Entered On: [...] wedge to encourage calcaneus into more eversion. [place] okay to patient butwill have patient use [...] Modalities : Yes Meredith Menendez PTA - 03/26/2023 8:59 EDT Pain Assessment Pain Location : Ankle Laterality : Right Self Report Pain : Numeric rating scale Numeric Pain Scale : 5 = Moderate pain Numeric Pain Score : 5 Meredith Menendez PTA 03/26/2023 8:59 EDT Manual Therapy Manual Therapy Activity 1 Activity 2 Type/Technique : IASTM, Manual stretch, Myofascial/Soft tissue mobilization Region : Right ankle Equipment/Medium : Deep prep, Smart tools Deep prep Meredith Menendez PTA - 03/26/2023 8:59 EDT Meredith Menendez PTA 03/26/2023 8:59 EDT Modalities Modalities Activity 1 Modality : Vasopneumatic device therapy Body Region : R ankle Settings : H Minutes : 15 minutes Meredith Menendez PTA 03/26/2023 8:59 EDT Education *Barriers To Learning : None evident *Teaching Method : Demonstration, Explanation Patient Education - PT Outpatient : N/A Shon HAKEEMMeredith David 03/26/2023 8:59 EDT Assessment PT Response to Treatment : Tolerated well PT Clinical Assessment Summary : Pt responded well to manual work and edema was reduced with use ofvasopneumatic device. 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 [place] okay to patient butwill have patient use [...] X HEP Given : Comment [facility]/12/[facility]23 8:54 EDT Shon [facility], Meredith 03/12/2023 8:54 EDT Shon [facility] 03/12/2023 8:54 EDT Shon [facility]03/12/2023 8:54 EDT Exercise 5 Exercise 6 Exercise 7 Exercise 8 Exercise : Seated Baps Standing with relaxed foot Modified tandem stand Seated Dome Equipment/Device : Repetition/Time : 10 ea 1 minute 10x2 3x10 Resist or Assist : Not Performed : X X X HEP Given : Comment : x4 way and CW/CCW Shon [facility] 03/12/2023 8:54 EDT Shon [facility] 03/12/2023 8:54 EDT Shon [facility] 03/12/2023 8:54 EDT Shon [facility]03/12/2023 8:54 EDT Exercise 9 Exercise 10 Exercise [...] HEP Given : Yes Comment : Shon [facility] 03/12/2023 8:54 EDT Shon [facility] 03/12/2023 8:54 EDT Shon [facility] 03/12/2023 8:54 EDT Shon [facility]03/12/2023 8:54 EDT Exercise 14 Exercise : Gait training without AD Equipment/Device : Repetition/Time : 25 min Resist or Assist : Not Performed : HEP Given : Comment : [facility] 03/12/2023 8:54 EDT Education *Barriers To Learning [...] PT for her spine. 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 [place] okay to patient butwill have patient use for awhile to ascertain tolerability. Attending Physician : Name: STEFAN SOTO Subjective : Pt continues to have nerve pain at anterior ankle but feels good today. Has been walking barefoot at home without AD, feeling good. Therapeutic Exercise : Yes Shon PALACIO, Meredith 03/05/2023 11:48 EDT Therapeutic Exercise Custom Therapeutic [...] Shon PALACIO, Meredith 03/05/2023 11:48 EDT Exercise 5 Exercise [...] Meredith 03/05/2023 11:48 EDT Shon PALACIO, Meredith - 03/05/2023 11:48 EDT Exercise 9 Exercise 10 [...] Shon PALACIO, Meredith 03/05/2023 11:48 EDT Exercise 14 Exercise : Gait training without AD Equipment/Device : Repetition/Time : Resist or Assist : Not Performed : HEP Given : Comment : Meredith Menendez PTA 03/05/2023 11:48 EDT Education *Barriers To Learning : None evident *Teaching Method : Demonstration, Explanation Patient Education - PT Outpatient : N/A Meredith Menendez PTA 03/05/2023 14:06 EDT Assessment PT Response to Treatment : Tolerated well PT Clinical Assessment Summary : Focused on gait training in even and uneven surfaces with emphasison symmetrical sstride length and WS without use of ADs. Pt demonstrates improvement with progressive trials. Meredith Menendez PTA 03/05/2023 14:06 EDT Plan Frequency : 2 [...] PT Therapeutic Exercise Time : 0 minutes RESTAURANT ASSISTANT MANAGER Therapeutic Exercise Units : 0 units PT Total Timed Code Treatment Units : 0 units PT Total Timed Code Tx Minutes : 0 minutes 8 Min Rule Unit Check PT OP : 0 units PT Total Treatment Time Rehab : 0 minutes 8 Min Rule Unit Difference PT OP : 0 Meredith Menendez PTA [facility] Out[facility] Progress Note [...] wedge to encourage calcaneus into more eversion. [place] okay to patient butwill have patient use [...] - 03/15/2023 9:00 EDT Cosme DAWN Abdoulaye 03/15/2023 9:00 EDT TrinityAbdoulaye buckner PT - 03/15/2023 9:00 EDT Daphnerefugio LÓPEZ Abdoulaye - 03/15/2023 9:00 EDT Exercise 14 Exercise : Gait training without AD Equipment/Device : Repetition/Time : 25 min Resist or Assist : Not Performed : HEP Given : Comment : Abdoulaye Aguiar PT - 03/15/2023 9:00 EDT Education *Barriers To Learning : None evident *Teaching Method : Explanation Patient Education - PT Outpatient : Home exercise program - progression/modification Abdoulaye Aguiar PT - 03/15/2023 9:00 EDT Assessment PT Clinical Assessment Summary : Having a better day; patient reports she feels better after manualsessions in regards to comfort and mobility TrinityAbdoulaye buckner PT - 03/15/2023 9:00 EDT Plan Frequency : 2 times per week *Duration : 8 Weeks *Treatments : Balance training, Manual therapy, Therapeutic exercises, Patient education, Gait training *Plan for Next Visit : Cont manual therapy, exercises, gait training. Home Exercise Program/Other PT Treatment Provided : Initiated Treatment Plan/Goals Established with Patient/Caregiver : Yes Daphnerefugio LÓPEZAbdoulaye - 03/15/2023 9:00 EDT Time Spent with [...] Unit Difference PT OP : 0 Trinitytammirefugio LÓPEZAbdoulaye - 03/15/2023 9:[facility] Outpatient Progress Note Entered On: 03/13/2023 13:29 EDT Performed On: 03/13/2023 10:30 EDT by Favio Whittaker PT Review/Treatments Provided Total Visit Count : 52 Visit Count Reviewed? : Yes Planogrammer Goals Reviewed : Yes Diagnosis : Reason for Visit: M19.171=POST TRAUMATIC ARTHRITIS OF R ANKLE, SX 01/10/23 Precautions/Special Notes : 03/01/23 looked at patient's orthotic materials. Modified metatarsal cookie to use as lateral heel wedge to encourage calcaneus into more eversion. [place] okay to patient butwill have patient use for awhile to ascertain tolerability. Attending Physician : Name: STEFAN SOTO Subjective : good day per pt., using 1 walking stick Aquatics : Yes Panfilo PT, Favio 03/13/2023 13:19 EDT Planogrammer Goals PT Outpt Pt Goal - grid [...] Panfilo PT, Favio 03/13/2023 13:19 EDT Panfilo DAWN, Favio 03/13/2023 13:19 EDT Panfilo PT, Favio [...] Comment : ABDuction, hang with noodle Panfilo DAWN, Favio 03/13/2023 13:19 EDT Panfilo PT, Favio 03/13/2023 13:19 EDT Panfilo DAWN, Favio 03/13/2023 13:19 EDT Panfilo PT, Favio 03/13/2023 13:19 EDT Exercise 13 Exercise : Cool down walk Reps/Time : 3' Comment : Panfilo DAWN, Favio 03/13/2023 13:19 EDT Education *Barriers To Learning : None evident *Teaching Method : Demonstration, Explanation Patient Education - PT Outpatient : Other: SL walk Panfilo DAWN, Favio 03/13/2023 13:19 EDT Assessment PT Response to Treatment : Tolerated well PT Clinical Assessment Summary : Pt. takes time to do exercises, walking with good form. Panfilo DAWN, Favio 03/13/2023 13:19 EDT Plan Frequency : 2 times per week *Duration : 8 Weeks *Treatments : Balance training, Manual therapy, Therapeutic exercises, Patient education, Gait training *Plan for Next Visit : continue protocal Home Exercise Program/Other PT Treatment Provided : Initiated Treatment Plan/Goals Established with Patient/Caregiver : Yes Panfilo DAWN, Favio 03/13/2023 13:19 EDT Time Spent with Patient [...] Rule Unit Difference PT OP : 0 Panfilo DAWN, Favio 03/13/2023 13:19 [facility]05-05-2023 NotePT Outpatient Progress Note Entered On: [...] wedge to encourage calcaneus into more eversion. [place] okay to patient butwill have patient use [...] Line: 8 mg = 1 tabs, ORAL, [id number], PRN: as needed for nausea/vomiting, 30 tabs, 0 Refill(s) ; Ordering Provider: YARELI FOREMAN DPM, RES; Catalog Code: ondansetron ; Order Dt/Tm: 04/14/2020 11:00:03 EDT acetaminophen-hydrocodone : acetaminophen-hydrocodone ; Status: Prescribed ; Ordered As Mnemonic: acetaminophen-HYDROcodone 325 mg-5 mg oral tablet ; Simple Display Line: 2 tabs, ORAL, [id number], PRN: Moderate to Severe Pain, 30 tabs, [...] CW/CCW Erwin Aguiar PT (more content not included)...[facility] 03-06-2023 NotePT Outpatient Progress Note Entered On: [...] wedge to encourage calcaneus into more eversion. [place] okay to patient butwill have patient use for awhile to ascertain tolerability. Attending Physician : Name: STEFAN SOTO Subjective : WAs busy yesterday on feet, did walking without support and did okay. Another busy daytoday. Aquatics : Yes Cosme DAWN, Abdoulaye - 03/06/2023 13:08 EDT Aquatic Therapy [...] DAWN, Abdoulaye - 03/06/2023 13:08 EDT Cosme DAWN, Abdoulaye - 03/06/2023 13:08 EDT Abdoulaye Aguiar [...] 0 Abdoulaye Aguiar PT - 03/06/2023 13:[facility] Outpatient Progress Note Entered On: [...] wedge to encourage calcaneus into more eversion. [place] okay to patient butwill have patient use [...] Abdoulaye Aguiar PT - 03/01/2023 10:28 EDT Exercise 5 Exercise 6 Exercise 7 Exercise 8 Exercise : Seated Baps Standing with relaxed foot Modified tandem stand Seated Dome Equipment/Device : Repetition/Time : 10 ea 1 minute 10x2 3x10 Resist or Assist : Not Performed : X X X HEP Given : Comment : x4 way and CW/CCW Abdoulaye Aguiar PT - 03/01/2023 10:28 EDT [...] : Yes Comment : Abdoulaye Aguiar PT 03/01/2023 10:28 EDT Abdoulaye Aguiar PT - [...] so will monitor symptoms. Abdoulaye Aguiar PT 03/01/2023 10:28 EDT Plan Frequency : 2 [...] 0 Abdoulaye Aguiar PT - 03/01/2023 10:28 [facility] 02-27-2023 NotePT Outpatient Progress Note Entered On: 02/27/2023 11:05 EDT Performed On: 02/27/2023 10:54 EDT by Abdoulaye Aguiar PT Review/Treatments Provided Total Visit Count : 47 Visit Count Reviewed? : Yes Diagnosis : Reason for Visit: M19.171=POST TRAUMATIC ARTHRITIS OF R ANKLE, SX 3/9/23 Attending Physician : Name: STEFAN SOTO Subjective : Patient walking without sticks at home but using them out of the house. Wants to work more on walking, trying to get foot relaxed. Says she feels better without shoes as with shoes she feels more unstable. Therapeutic Exercise : Yes Cosme DAWN Abdoulaye 02/27/2023 10:54 EDT Therapeutic Exercise Custom Therapeutic Exercise Exercise 1 Exercise 2 Exercise 3 Exercise 4 Exercise : Ankle ROM Right Towel Stretch t-band 4X Seated AROM (PF/DF)(Inv/Ev) Equipment/Device : Repetition/Time : x20 ea 20x3 KE and KF 15x2 x20 ea Resist or Assist : Red Not Performed : HEP Given : Comment : Abdoulaye Aguiar PT 02/27/2023 10:54 EDT Abdoulaye Aguiar PT 02/27/2023 10:54 EDT Abdoulaye Aguiar PT 02/27/2023 10:54 EDT Abdoulaye Aguiar PT 02/27/2023 10:54 EDT Exercise 5 Exercise 6 Exercise 7 Exercise 8 Exercise : Seated Baps Standing with relaxed foot Modified tandem stand Seated Dome Equipment/Device : Repetition/Time : 10 ea 1 minute 10x2 3x10 Resist or Assist : Not Performed : HEP Given : Comment : x4 way and CW/CCW Abdoulaye Aguiar PT 02/27/2023 10:54 EDT Abdoulaye Aguiar PT 02/27/2023 10:54 EDT Abdoulaye Aguiar PT 02/27/2023 10:54 EDT Abdoulaye Aguiar PT 02/27/2023 [...] PT 02/27/2023 10:54 EDT Abdoulaye Aguiar PT 02/27/2023 10:54 EDT Daphnerefugio LÓPEZ Abdoulaye - 02/27/2023 10:54 EDT Cosme DAWN Abdoulaye - 02/27/2023 10:54 EDT Education *Barriers To Learning : None evident *Teaching Method : Demonstration, Explanation Patient Education - PT Outpatient : Home exercise program - progression/modification Abdoulaye Aguiar PT - 02/27/2023 10:54 EDT Assessment PT Clinical Assessment [...] of gravity and give of midsole. Cosme LÓPEZAbdoulaye - 02/27/2023 10:54 EDT Plan Frequency : 2 times per week *Duration : 8 Weeks *Treatments : Balance training, Manual therapy, Therapeutic exercises, Patient education, Gait training *Plan for Next Visit : Cont per plan Home Exercise Program/Other PT Treatment Provided : Initiated Treatment Plan/Goals Established with Patient/Caregiver : Yes Trinitytammirefugio LÓPEZAbdoulaye - 02/27/2023 10:54 EDT Time Spent [...] 0 Abdoulaye Aguiar PT - 02/27/2023 10:[facility] Outpatient Progress Note Entered On: [...] first aquatic session Aquatics : Yes Jerrod WHITET, [place] 02/26/2023 16:01 EDT Aquatic Therapy Aqua Ankle - grid Exercise 11 Exercise 1 Exercise 2 Exercise 3 Exercise : Water cycle - bench Warm-up walk Calf stretch Ankle Pumps, Ankle circles Reps/Time : 3' 3' 20x3 x20 Comment : KE and KF Torstenski DPT, [place] 02/26/2023 16:13 EDT Torstenski DPT, [place] 02/26/2023 16:01 EDT Torstenski DPT, [facility] 02/26/2023 16:01 EDT Torstenski DPT, [place] 02/26/2023 16:13 EDT Exercise 4 Exercise 5 Exercise 6 Exercise 7 Exercise : One leg stance Calf Raises, Other: Toe raises Other: Standing Inversion and Eversion Other: Squats Reps/Time : 10x3 x20 ea x15 ea x20 Comment : Jerrod WHITET, [place] 02/26/2023 16:01 EDT Torstenski DPT, [place] 02/26/2023 16:01 EDT Torstenski DPT, [place] 02/26/2023 16:01 EDT Torstenski DPT, [place] 02/26/2023 16:01 EDT Exercise 8 Exercise 9 Exercise 10 Exercise 12 Exercise : Step-up March walk, Retro walk, Lateral walk Other: Flex, Abd, Extension of hips Other: Gait training trying to improve toe off, delaying heel off slightly. Reps/Time : x10 4w ea x15 ea 4w - 0 Comment : bottom pool step Savagei DPT, [place] 02/26/2023 16:13 EDT Torstenski DPT, [facility] 02/26/2023 16:01 EDT Torstenski DPT, [place] 02/26/2023 16:01 EDT Torstenski DPT, [place] 02/26/2023 16:13 EDT Exercise 13 Exercise : Cool down walk Reps/Time : 3' Comment : Jerrod KATZ, [place] 02/26/2023 16:13 EDT Education *Barriers To Learning : None evident *Teaching Method : Demonstration, Explanation Patient Education - PT Outpatient : Other: exercise technique Jerrod KATZ, [facility] 02/26/2023 16:13 EDT Assessment PT Response to Treatment : Tolerated well PT Clinical Assessment Summary : Pt reports less soreness following this tx compared to first aquatic session. Notes benefit with water walking and focus on mechanics. Group charge due to pt overlap. Jerrod KATZ, [facility] 02/26/2023 16:13 EDT Plan Frequency : 2 times per week *Duration : 8 Weeks *Treatments : Balance training, Manual therapy, Therapeutic exercises, Patient education, Gait training *Plan for Next Visit : f/u on land; pt requesting print out of aquatic ex's Home Exercise Program/Other PT Treatment Provided : Initiated Treatment Plan/Goals Established with Patient/Caregiver : Yes Jerrod KATZ, [facility] 02/26/2023 16:13 EDT Time Spent with Patient - Outpatient PT Time In : 16:00 EST Jerrod KATZ, [facility] 02/26/2023 16:01 EDT PT Time Out : 16:38 EST Jerrod KATZ, [facility] 02/26/2023 16:13 EDT PT Aquatic Group Therapy Units : 1 units PT Aquatic Group Therapy Time : 15 minutes Jerrod KATZ, [place] 02/26/2023 16:01 EDT PT Aquatic Units : 2 units PT Aquatic Time : 23 minutes PT Total Timed Code Treatment Units : 2 units PT Total Timed Code Tx Minutes : 23 minutes 8 Min Rule Unit Check PT OP : 2 units Jerrod KATZ, [facility] 02/26/2023 16:13 EDT PT Total Untimed Code Treatment Minutes : 15 minutes Jerrod KATZ, [facility] 02/26/2023 16:01 EDT PT Total Treatment Time Rehab : 38 minutes Jerrod KATZ, [facility] 02/26/2023 16:13 EDT 8 Min Rule Unit Difference PT OP : 0 Jerrod KATZ, [place] [facility] Outpatient Progress Note [...] on gait and balance. Aquatics : Yes Cosme DAWN Abdoulaye - 02/22/2023 11:27 EDT Pain Assessment Laterality : Right Self Report Pain : Numeric rating scale Numeric Pain Scale : 4 Numeric Pain Score : 4 Cosme DAWN, Abdoulaye - 02/22/2023 11:27 EDT Aquatic Therapy Aqua Ankle - grid Exercise 1 Exercise 2 Exercise 3 Exercise 4 Exercise : Warm-up walk Calf stretch Ankle Pumps, Ankle circles, Cool down walk (Comment: Inv/Eversion [Cosme DAWN Abdoulaye - 02/22/2023 11:27 EDT] ) One leg stance Reps/Time : 3' 20x3 x20 10x3 Resist/Assist : Comment : KE and KF Cosme DAWN, Abdoulaye - 02/22/2023 11:27 EDT Cosme DAWN, Abdoulaye - 02/22/2023 11:27 EDT Cosme DAWN Abdoulaye - 02/22/2023 11:27 EDT Cosme DAWN, Abdoulaye - 02/22/2023 11:27 EDT Exercise 5 Exercise 6 Exercise 8 Exercise 9 Exercise : Calf Raises, Other: squats Other: Standing Inversion and Eversion Step-up March walk, Retro walk, Lateral walk Reps/Time : x20 ea x10 ea x10 4w ea Resist/Assist : Other: small red step Comment : Mirza Aguiar PTnie - 02/22/2023 11:27 EDT Cosme DAWN Abdoulaye - 02/22/2023 11:27 EDT Cosme DAWN, Abdoulaye - 02/22/2023 11:27 EDT Cosme DAWN, Abdoulaye - 02/22/2023 11:27 EDT Exercise 10 Exercise 12 Exercise 13 Exercise : Other: Flex, Abd, Extension of hips Other: Gait training trying to improve toe off, delaying heel off slightly. Water cycle - bench Reps/Time : x10 ea 4w 3' Resist/Assist : Comment : Abdoulaye Aguiar PT - 02/22/2023 11:27 EDT TrinityAbdoulaye buckner PT - 02/22/2023 11:27 EDT Abdoulaye Aguiar [...] 0 Abdoulaye Aguiar PT - 02/22/2023 11:27 [facility] 02-22-2023 NotePT Outpatient Progress Note Entered [...] LRD. Gait : Yes Meredith Menendez PTA - 02/21/2023 17:53 EDT Total Visit Count : 44 Visit Count Reviewed? 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 Shon PALACIO 02/21/2023 17:53 EDT Education *Barriers To Learning [...] B canes vs. crutches or singe cane. New Menendez PTA02/21/2023 17:53 EDT Plan Frequency : 2 times [...] PT Gait Training Time : 0 minutes RESTAURANT ASSISTANT MANAGER Gait Training Units : 0 units PT Total Timed Code Treatment Units : 0 units PT Total Timed Code Tx Minutes : 0 minutes 8 Min Rule Unit Check PT OP : 0 units PT Total Treatment Time Rehab : 0 minutes 8 Min Rule Unit Difference PT OP : 0 Meredith Menendez PTA 02/21/2023 17:[facility] NotePT Outpatient Progress Note [...] PT Outpatient : N/A Meredith Menendez PTA 02/18/2023 18:02 EDT Assessment PT Response to Treatment : Tolerated well PT Clinical Assessment Summary : Added BAPS today with good effort; very challenging. Increased attention to symmetrical stance and WS. Pt exhibits improvement with placement and control. Shon HAKEEMMeredith - 02/18/2023 18:02 EDT Plan Frequency : 2 times per week *Duration : 8 Weeks *Treatments : Balance training, Manual therapy, Therapeutic exercises, Patient education, Gait training *Plan for Next Visit : Begin gait training. Home Exercise Program/Other PT Treatment Provided : Initiated Treatment Plan/Goals Established with Patient/Caregiver : Yes Shon HAKEEMMeredith - 02/18/2023 18:02 EDT Time Spent with Patient - Outpatient PT Time In : 00:00 EST PT Time Out : 00:00 EST PT Therapeutic Exercise Time : 0 minutes RESTAURANT ASSISTANT MANAGER Therapeutic Exercise Units : 0 units PT Total Timed Code Treatment Units : 0 units PT Total Timed Code Tx Minutes : 0 minutes 8 Min Rule Unit Check PT OP : 0 units PT Total Treatment Time Rehab : 0 minutes 8 Min Rule Unit Difference PT OP : 0 ShonMeredith zaragoza PTA - 02/18/2023 18:02 [facility] NotePT Outpatient Progress Note [...] Red Not Performed : HEP Given : Daphnerefugio PT, Abdoulaye - 02/15/2023 8:13 EDT Cosme PT, Abdoulaye - 02/15/2023 8:13 EDT Daphnerefugio PT, Abdoulaye 02/15/2023 8:13 EDT Daphnerefugio PT, Abdoulaye - 02/15/2023 8:13 EDT Exercise 5 Exercise 6 Exercise 7 Exercise 8 Exercise : Standing Baps Standing with relaxed foot Modified tandem stand Seated Dome Repetition/Time : next 1 minute 10x2 3x10 Resist or Assist : Not Performed : HEP Given : Cosme PT, Abdoulaye - 02/15/2023 8:13 EDT Cosme PT, Abdoulaye 02/15/2023 8:13 EDT Cosme PT, Abdoulaye 02/15/2023 8:13 EDT Cosme PT, Abdoulaye 02/15/2023 8:13 EDT Exercise 9 Exercise 10 Exercise : calcaneal distraction and mobs minisquat Repetition/Time : grade IIL Resist or Assist : Not Performed : X HEP Given : Yes Daphnerefugio PT Abdoulaye 02/15/2023 8:13 EDT Cosme PT, Abdoulaye 02/15/2023 8:13 EDT Education *Barriers To Learning : None evident *Teaching Method : Demonstration, Explanation Patient Education - PT Outpatient : Home exercise program - progression/modification Cosme LÓPEZ Abdoulaye - 02/22/2023 11:25 EDT Assessment PT Clinical Assessment Summary : Sebastián well, some discomfort right medial ankle; amb without boot. Trinitytammirefugio LÓPEZ Abdoulaye 02/22/2023 11:25 EDT Plan Frequency : 2 times per week *Duration : 8 Weeks *Treatments : Balance training, Manual therapy, Therapeutic exercises, Patient education, Gait training *Plan for Next Visit : Cont and progress as tolerated. Home Exercise Program/Other PT Treatment Provided : Initiated Treatment Plan/Goals Established with Patient/Caregiver : Yes Daphnerefugio LÓPEZAbdoulaye - 02/22/2023 11:25 EDT Time Spent with Patient [...] : 0 Cosme PTAbdoulaye - 02/22/2023 11:25 [facility] 02-20-2023 NotePROCEDURE: XR ANKLE RT MIN [...] Electronically authenticated by: JERZY MURRIETA Date: 2023-02-20 10:43[facility]04-14-2023 NotePT Outpatient Progress Note Entered On: 02/11/2023 [...] Given : Comment : Shon PALACIO Meredith - 02/11/2023 17:49 EDT Shon PALACIO Meredith 02/11/2023 17:49 EDT Shon PALACIO Meredith 02/11/2023 17:49 EDT Shon PALACIO Meredith - 02/11/2023 17:49 EDT Exercise 9 Exercise : [...] : Deep prep Deep prep Shon PALACIO 02/11/2023 17:49 EDT Shon PALACIO Meredith - 02/11/2023 17:49 EDT Modalities Modalities Activity 1 Modality : Vasopneumatic device therapy Body Region : R ankle Settings : M Minutes : 15 minutes Shon PALACIO Meredith - 02/11/2023 17:49 EDT Education *Barriers To Learning : None evident *Teaching Method : Demonstration, Explanation Patient Education - PT Outpatient : N/A Shon PALACIO Meredith - 02/11/2023 17:49 EDT Assessment PT Response to Treatment : Tolerated well PT Clinical Assessment Summary : Pt responded well to vasopneumatic treatment with decreased pain and edema following session. Shon HAKEEM Meredith 02/11/2023 17:49 EDT Plan Frequency : 2 times per week *Duration : 8 Weeks *Treatments : Balance training, Manual therapy, Therapeutic exercises, Patient education, Gait training *Plan for Next Visit : progress as tolerated. Home Exercise Program/Other PT Treatment Provided : Initiated Treatment Plan/Goals Established with Patient/Caregiver : Yes Shon PALACIONewa 02/11/2023 17:49 EDT Time Spent with Patient - Outpatient PT Time In : 00:00 EST PT Time Out : 00:00 EST PT Therapeutic Exercise Time : 0 minutes RESTAURANT ASSISTANT MANAGER Therapeutic Exercise Units : 0 units PT Total Timed Code Treatment Units : 0 units PT Total Timed Code Tx Minutes : 0 minutes 8 Min Rule Unit Check PT OP : 0 units PT Total Treatment Time Rehab : 0 minutes 8 Min Rule Unit Difference PT OP : 0 Meredith Menendez PTA - 02/11/2023 17:49 [facility] NotePT Outpatient Progress [...] Abdoulaye Aguiar PT - 02/08/2023 8:15 EDT Manual Therapy Manual Therapy Activity 1 Type/Technique : Myofascial/Soft tissue mobilization Region : Other: plantar fascia right Equipment/Medium : Deep prep Abdoulaye Aguiar PT 02/08/2023 8:15 EDT Education *Barriers To Learning : None evident *Teaching Method : Demonstration, Explanation, Printed materials Patient Education - PT Outpatient : Home exercise program - progression/modification Abdoulaye Aguiar PT - 02/08/2023 8:15 EDT Assessment PT Clinical Assessment [...] 0 Abdoulaye Aguiar PT - 02/08/2023 8:[facility]PT Outpatient Evaluation Entered On: 02/06/2023 [...] Single level home Patient's 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, 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, 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 Abdoulaye Aguiar PT [...] KE and KF x20 ea 1 minute Dittrick PT, Abdoulaye - 02/06/2023 8:20 EDT Dittrick PT, Abdoulaye - 02/06/2023 8:20 EDT Dittrick PT, Abdoulaye - 02/06/2023 8:20 EDT Dittrick PT, Abdoulaye - 02/06/2023 8:20 EDT LE ROM/Strength Document LE Range Degrees : Yes Dittrick PT, Abdoulaye - 02/06/2023 8:20 EDT Right Lower Extremity Strength Grid Ankle Dorsiflexion : 4 Ankle Plantarflexion : 4- Ankle Eversion : 4- Ankle Inversion : 3+ Dittrick PT, Abdoulaye 02/06/2023 8:20 EDT LE ROM Degrees LLE Range of Motion (in degrees) Grid Left Ankle Dorsiflexion,Knee Extended Left Ankle Plantarflexion Range Motion Left Ankle Inversion Range Left Ankle Eversion Range Active : 12 55 21 22 Dittrick PT, Abdoulaye - 02/06/2023 8:20 EDT Dittrick PT, Abdoulaye - 02/06/2023 8:20 EDT Dittrick PT, Abdoulaye - 02/06/2023 8:20 EDT Dittrick PT, Abdoulaye 02/06/2023 [...] Outpatient : Home exercise program - initiation Cosme PT, Abdoulaye - 02/06/2023 13:42 EDT Falls and Education Assessment [...] Characteristics PT : Sta (more content not included)...[facility]02-24-2023 NotePT Outpatient Progress Note Entered On: 12/28/2022 13:14 EST Performed On: 12/28/2022 12:57 EST by Abdoulaye Aguiar PT Review/Treatments Provided Rehab Reassessment : Reassessment Total Visit Count : 39 Visit Count Reviewed? : Yes Planogrammer Goals Reviewed : Yes Pain Present : [...] : 8 Numeric Pain Score : 8 Cosme DAWN Abdoulaye - 12/28/2022 12:57 EST Halfway Goals PT Outpt Pt Goal - grid [...] comment; bone cyst/impingement preventing normalization of gait. [Cosme DAWN Abdoulaye 12/28/2022 12:57 EST] ) 12/28/2022 EST 12/28/2022 [...] exercise program- reinforced compliance Abdoulaye Aguiar PT - 12/28/2022 12:57 EST Assessment PT Clinical Assessment Summary : Patient still stuggling with impingement in anteromedial ankle. ROM for dorsiflexion has regressed because of this despite best efforts to improve this through manualtherapy and stretching. Further therapy at this point not justified, but will be needed if patient does have surgery to correct these issues. Abdoulaye Aguiar PT - 12/28/2022 12:57 EST Plan Frequency : 2 times per week *Duration : 6 Weeks *Treatments : Balance training, Therapeutic exercises, Pain Management, Posture/Body mechanics training, Gait training *Plan for Next Visit : D/C with HEP in effect. May need more therapy if surgery performed to correct impingement issue. Treatment Plan/Goals Established with Patient/Caregiver : Yes Cosme DAWN Abdoulaye - 12/28/2022 12:57 EST Time Spent with Patient - Outpatient PT Time In : 09:05 EST PT Time Out : 09:45 EST PT Re-Evaluation Units, 84622 : 1 units PT Re-Evaluation Time, [id number] : 45 minutes PT Total Untimed Code Treatment Minutes : 45 minutes PT Total Treatment Time Rehab : 45 minutes Trinitydudley DAWNAbdoulaye - 12/28/2022 [facility] NotePT Outpatient Progress Note Entered [...] - 12/21/2022 8:08 EST Meredith Menendez PTA 12/21/2022 8:08 EST Meredith Menendez PTA - 12/21/2022 8:08 EST Shon RESTAURANT ASSISTANT MANAGER, 12/21/2022 8:08 EST Exercise 5 Exercise 6 Exercise 7 Exercise 8 Exercise : Small knee bends for dynamic achilles stretch slant board stretch T- band Posterior Tib; Tib Anterior Gait training Repetition/Time : 10 30 x 3* 15x2 Resist or Assist : red Not Performed : X X Comment : *Knee extended and then bent shorter stride to normalize patter. Shon RESTAURANT ASSISTANT MANAGER, 12/21/2022 8:08 EST Shon RESTAURANT ASSISTANT MANAGER, 12/21/2022 8:08 EST Shon RESTAURANT ASSISTANT MANAGER, 12/21/2022 8:08 EST Shon RESTAURANT ASSISTANT MANAGER, 12/21/2022 8:08 EST Exercise 9 Exercise 10 Exercise 11 Exercise 12 Exercise : Forward step downs Half dome PF/DF, INV/EV, CW/CCW Bilateral FWD stretch LAQ/ HS curls Repetition/Time : Resist or Assist : 2.5#/green Not Performed : X Comment : 2 then 4 tibial FWD translation Shon RESTAURANT ASSISTANT MANAGER, 12/21/2022 8:08 EST Shon RESTAURANT ASSISTANT MANAGER, 12/21/2022 8:08 EST Shon RESTAURANT ASSISTANT MANAGER, 12/21/2022 8:08 EST Shon RESTAURANT ASSISTANT MANAGER, 12/21/2022 8:08 EST Exercise 13 Exercise 14 Exercise 15 Exercise 16 Exercise : distraction and t/s and subtalar mobs Upright bike True [place] Strap Calf Stretch KE andKF Repetition/Time : 10' 30x3 Resist or Assist : grade III 3 115# Not Performed : X X X Comment : Shon RESTAURANT ASSISTANT MANAGER, 12/21/2022 8:08 EST Shon RESTAURANT ASSISTANT MANAGER, 12/21/2022 8:08 EST Shon RESTAURANT ASSISTANT MANAGER, 12/21/2022 8:08 EST Shon RESTAURANT ASSISTANT MANAGER, 12/21/2022 8:08 EST Exercise 17 Exercise 18 Exercise 20 Exercise 21 Exercise : Half dome PWB alphabet 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, telegraphic service dispatcher NEW: 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 posterior tib; athletic tape to foot to relieve PF and to soleus WS with metronome Repetition/Time : done 10' Resist or Assist : Not Performed : X Comment : Shon RESTAURANT ASSISTANT MANAGER, Meredith 12/21/2022 8:08 EST Shon PALACIO, Meredith 12/21/2022 8:08 EST Shon PALACIO Meredith 12/21/2022 8:08 EST Shon PALACIO Meredith 12/21/2022 8:08 EST Exercise 22 Exercise : Gait trianing with metronome Repetition/Time : 15' Resist or Assist : Not Performed : X Comment : ShonMeredith mora PTA 12/21/2022 8:08 EST Education *Barriers To Learning : None evident *Teaching Method : Demonstration, Explanation Patient Education - PT Outpatient : N/A Meredith Menendez PTA 12/21/2022 8:08 EST Assessment PT Response to Treatment : Tolerated well PT Clinical Assessment Summary : Reviewed HEP and POC with pt. Pt demonstrates 100% skill and comprehension with HEP. Shonmila PALACIO Meredith 12/21/2022 8:08 EST Plan Frequency : 2 times per week *Duration : 6 Weeks *Treatments : Balance training, Therapeutic exercises, Pain Management, Posture/Body mechanics training, Gait training *Plan for Next Visit : Discuss plan for DC, resuming after surgery. Treatment Plan/Goals Established with Patient/Caregiver : Yes Shon PALACIOMeredith 12/21/2022 8:08 EST Time Spent with Patient - Outpatient PT Time In : 00:00 EST PT Time Out : 00:00 EST PT Therapeutic Exercise Time : 0 minutes RESTAURANT ASSISTANT MANAGER Therapeutic Exercise Units : 0 units PT Total Timed Code Treatment Units : 0 units PT Total Timed Code Tx Minutes : 0 minutes 8 Min Rule Unit Check PT OP : 0 units PT Total Treatment Time Rehab : 0 minutes 8 Min Rule Unit Difference PT OP : 0 Shon HAKEEM Meredith 12/21[facility]2022 8:[facility] NotePT Outpatient Progress Note Entered [...] increased edema. Therapeutic Exercise : Yes Shon RESTAURANT ASSISTANT MANAGER, Meredith - 12/07/2022 13:29 EST Therapeutic Exercise Custom Therapeutic Exercise Exercise 1 Exercise 2 Exercise 3 Exercise 4 Exercise : NuStep joint mobs Talocrural and subtalar Anterior glides 1st MTP Slow reversals and hold relax stretch into extension of 1st MTP Repetition/Time : 5 Grade III 5' x10 Resist or Assist : 5 Not Performed : X Comment : Shon RESTAURANT ASSISTANT MANAGER, Meredith - 12/07/2022 13:29 EST Shon RESTAURANT ASSISTANT MANAGER, Meredith - 12/07/2022 13:29 EST Shon RESTAURANT ASSISTANT MANAGER, Meredith 12/07/2022 13:29 EST Shon RESTAURANT ASSISTANT MANAGER, Meredith - 12/07/2022 13:29 EST Exercise 5 Exercise 6 Exercise 7 Exercise 8 Exercise : Small knee bends for dynamic achilles stretch slant board stretch T- band Posterior Tib; Tib Anterior Gait training Repetition/Time : 10 30 x 3* 15x2 Resist or Assist : red Not Performed : X Comment : *Knee extended and then bent shorter stride to normalize patter. Hson RESTAURANT ASSISTANT MANAGER, Meredith - 12/07/2022 13:29 EST Shon RESTAURANT ASSISTANT MANAGER, Meredith 12/07/2022 13:29 EST Shon RESTAURANT ASSISTANT MANAGER, Meredith 12/07/2022 13:29 EST Shon RESTAURANT ASSISTANT MANAGER, Meredith 12/07/2022 13:29 EST Exercise 9 Exercise 10 Exercise 11 Exercise 12 Exercise : Forward step downs Half dome PF/DF, INV/EV, CW/CCW Bilateral FWD stretch LAQ/ HS curls Repetition/Time : Resist or Assist : 2.5#/green Not Performed : X Comment : 2 then 4 tibial FWD translation Shon RESTAURANT ASSISTANT MANAGER, Meredith - 12/07/2022 13:29 EST Shon RESTAURANT ASSISTANT MANAGER, Meredith 12/07/2022 13:29 EST Shon RESTAURANT ASSISTANT MANAGER, Meredith 12/07/2022 13:29 EST Shon RESTAURANT ASSISTANT MANAGER, Meredith 12/07/2022 13:29 EST Exercise 13 Exercise 14 Exercise 15 Exercise 16 Exercise : distraction and t/s and subtalar mobs Upright bike True [place] Strap Calf Stretch KE andKF Repetition/Time : 10' 30x3 Resist or Assist : grade III 3 115# Not Performed : X X X Comment : Shon PALACIO, [facility] 12/07/2022 13:29 EST Shon PALACIO, [facility] 12/07/2022 13:29 EST Shon PALACIO, [facility] 12/07/2022 13:29 EST Shon PALACIO, [facility] 12/07/2022 13:29 EST Exercise 17 Exercise 18 Exercise 20 Exercise 21 Exercise : Half dome PWB alphabet 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, telegraphic service dispatcher NEW: 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 posterior tib; athletic tape to foot to relieve PF and to soleus WS with metronome Repetition/Time : done 10' Resist or Assist : Not Performed : X Comment : Shon PALACIO, [facility] 12/07/2022 13:29 EST Shon PALACIO, [facility] 12/07/2022 13:29 EST Shon PALACIO, [facility] 12/07/2022 13:29 EST Shon PALACIO, [facility] 12/07/2022 13:29 EST Exercise 22 Exercise : Gait trianing with metronome Repetition/Time : 15' Resist or Assist : Not Performed : X Comment : Shon PALACIO [facility] 12/07/2022 13:29 EST Education *Barriers To Learning : None evident *Teaching Method : Demonstration, Explanation Patient Education - PT Outpatient : N/A Shon PALACIO [facility] 12/07/2022 13:29 EST Assessment PT Response to Treatment : Tolerated well PT Clinical Assessment Summary : Pt demonstrated improvement in normalizing gait with progressive trials this visit. Educated on avoiding overcorrection of foot placement at weight acceptace. Shon PALACIO [facility] 12/07/2022 13:29 EST Plan Frequency : 2 times per week *Duration : 6 Weeks *Treatments : Balance training, Therapeutic exercises, Pain Management, Posture/Body mechanics training, Gait training *Plan for Next Visit : continue with gait training to further normalize. Treatment Plan/Goals Established with Patient/Caregiver : Yes Shon PALACIO [facility] 12/07/2022 13:29 EST Time Spent with Patient - Outpatient PT Time In : 00:00 EST PT Time Out : 00:00 EST PT Therapeutic Exercise Time : 0 minutes RESTAURANT ASSISTANT MANAGER Therapeutic Exercise Units : 0 units PT Total Timed Code Treatment Units : 0 units PT Total Timed Code Tx Minutes : 0 minutes 8 Min Rule Unit Check PT OP : 0 units PT Total Treatment Time Rehab : 0 minutes 8 Min Rule Unit Difference PT OP : 0 PMR Chart Review : Yes Shon RESTAURANT ASSISTANT MANAGERMeredith - 12/07/2022 13:29 [facility] 12-12-2022 NotePT Outpatient Progress Note Entered On: [...] Abdoulaye Aguiar PT - 12/12/2022 13:19 EST Dittrick PT, Abdoulaye [...] t/s and subtalar mobs Upright bike True [place] Strap Calf Stretch KE andKF Repetition/Time : [...] Half dome PWB alphabet 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, telegraphic service dispatcher NEW: 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 posterior tib; athletic tape to foot to relieve PF and to soleus WS with metronome Repetition/Time : done 10' Resist or Assist : Not Performed : X Comment : Abdoulaye Aguiar PT - 12/12/2022 13:19 EST Abdoulaye Aguiar PT - 12/12/2022 13:19 EST Abdoulaye Aguiar PT - 12/12/2022 13:19 EST Abdoulaye Aguiar PT - 12/12/2022 13:19 EST Exercise 22 Exercise [...] to see a new doctor here at [facility] for consult regarding cyst and her options. Abdoulaye Aguiar PT - 12/12/2022 13:19 EST Plan Frequency : 2 times per week *Duration : 6 Weeks *Treatments : Balance training, Therapeutic exercises, Pain Management, Posture/Body mechanics training, Gait training *Plan for Next Visit : Cont per plan, this therapist will be back end of the month (more content not included)...[facility]02-01-2023 NotePT Outpatient Progress Note Entered On: 12/05/2022 [...] Aguiar PT - 12/05/2022 13:22 EST Abdoulaye Augiar PT - 12/05/2022 13:22 EST Abdoulaye Aguiar [...] t/s and subtalar mobs Upright bike True [place] Strap Calf Stretch KE andKF Repetition/Time : 10' 30x3 Resist or Assist : grade III 3 115# Not Performed : X X X Comment : Daphnerick PT, Abdoulaye - 12/05/2022 13:22 EST Dittrick PT, Abdoulaye - 12/05/2022 13:22 EST Dittrick PT, Abdoulaye - 12/05/2022 13:22 EST Dittrick PT, Abdoulaye - 12/05/2022 13:22 EST Exercise 17 Exercise 18 Exercise 20 Exercise 21 Exercise : Half dome PWB alphabet 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, telegraphic service dispatcher NEW: 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 posterior tib; athletic tape to foot to relieve PF and to soleus WS with metronome Repetition/Time : done 10' Resist or Assist : Not Performed : X Comment : Tirnityttrick PT, Abdoulaye - 12/05/2022 13:22 EST Dittrick PT, Abdoulaye - 12/05/2022 13:22 EST Dittrick PT, Abdoulaye - 12/05/2022 13:22 EST Dittrick PT, Abdoulaye - 12/05/2022 13:22 EST Exercise 22 Exercise : Gait trianing with metronome Repetition/Time : 15' Resist or Assist : Not Performed : X Comment : Daphenrick PT, Abdoulaye - 12/05/2022 13:22 EST Manual Therapy Manual Therapy Activity 1 Activity 2 Activity 3 Type/Technique : Myofascial/Soft tissue mobilization IASTM, Myofascial/Soft tissue mobilization Other: Cupping Region : Other: achilles, gastroc and soleus Other: plantar fascia Other: R calf and ankle Equipment/Medium : Deep prep Descriptor : 10 no no Cosme DAWN Abdoulaye - 12/05/2022 9:02 EST Abdoulaye Aguiar PT - 12/05/2022 13:22 EST Abdoulaye Aguiar PT - 12/05/2022 13:22 EST Modalities Modalities Activity 1 Activity 2 Modality : Iontophoresis Ice massage Body Region : superior-ant talus ditto Settings : 14 hour patch Abdoulaye Aguiar PT - 12/05/2022 13:22 EST Abdoulaye Aguiar PT - 12/05/2022 13:22 EST Education *Barriers To Learning : None evident *Teaching Method : Demonstration, Explanation Patient Education - PT Outpatient : Home exercise program - progression/modification Abdoulaye Aguiar PT - 12/05/2022 13:22 EST Assessment PT Clinical Assessment Summary : Sebastián well; as patient was pretty sore in talo- crural joint, Ice massage and ionto done to superior talar area; still worked on calf to mobiize and stretch. Patient able to walk better after treatment. Abdoulaye Aguiar PT 12/05/2022 13:22 EST Plan Frequency : 2 times per week *Duration : 6 Weeks *Treatments : Balanc (more content not included)...[facility]02-01-[facility] NotePT Outpatient Progress Note Entered On: 11/30/2022 [...] : Yes Manual Therapy : Yes Shon PALACIO, 11/30/2022 16:41 EST Therapeutic Exercise Custom Therapeutic Exercise Exercise 1 Exercise 2 Exercise 3 Exercise 4 Exercise : NuStep joint mobs Talocrural and subtalar Anterior glides 1st MTP Slow reversals and hold relax stretch into extension of 1st MTP Repetition/Time : 5 Grade III 5' x10 Resist or Assist : 5 Not Performed : X Comment : Shon RESTAURANT ASSISTANT MANAGER, Meredith - 11/30/2022 16:41 EST Shon RESTAURANT ASSISTANT MANAGER, 11/30/2022 16:41 EST Shon RESTAURANT ASSISTANT MANAGER, 11/30/2022 16:41 EST Shon RESTAURANT ASSISTANT MANAGER, 11/30/2022 16:41 EST Exercise 5 Exercise 6 Exercise 7 Exercise 8 Exercise : Small knee bends for dynamic achilles stretch slant board stretch Eccentric T-band Posterior Tib Gait training Repetition/Time : 10 30 x 3* 10x2 HEP Resist or Assist : red Not Performed : X X Comment : *Knee extended and then bent shorter stride to normalize patter. Shon RESTAURANT ASSISTANT MANAGER, Meredith - 11/30/2022 16:41 EST Shon RESTAURANT ASSISTANT MANAGER, Meredith - 11/30/2022 16:41 EST Shon RESTAURANT ASSISTANT MANAGER, 11/30/2022 16:41 EST Shon RESTAURANT ASSISTANT MANAGER, 11/30/2022 16:41 EST Exercise 9 Exercise 10 Exercise 11 Exercise 12 Exercise : Forward step downs Half dome PF/DF, INV/EV, CW/CCW Bilateral FWD stretch LAQ/ HS curls Repetition/Time : Resist or Assist : 2.5#/green Not Performed : X Comment : 2 then 4 tibial FWD translation Shon RESTAURANT ASSISTANT MANAGER, Meredith 11/30/2022 16:41 EST Shon RESTAURANT ASSISTANT MANAGER, Meredith - 11/30/2022 16:41 EST Shon RESTAURANT ASSISTANT MANAGER, Meredith - 11/30/2022 16:41 EST Shon RESTAURANT ASSISTANT MANAGER, Meredith - 11/30/2022 16:41 EST Exercise 14 Exercise 15 Exercise 16 Exercise 17 Exercise : Upright bike True [place] Strap Calf Stretch KE and KF Half dome PWB alphabet Repetition/Time : 30x3 Resist or Assist : 3 115# Not Performed : X X X Comment : Shon PALACIO, Meredith 11/30/2022 16:41 EST Shon PALACIO, Meredith 11/30/2022 16:41 EST Shon PALACIO, Meredith 11/30/2022 16:41 EST Shon PALACIO, Meredith 11/30/2022 16:41 EST Exercise 18 Exercise 20 Exercise 21 Exercise 22 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, 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 service 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 NEW: 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 posterior tib; athletic tape to foot to relieve PF and to soleus WS with metronome Gait trianing with metronome Repetition/Time : done 10' 15' Resist or Assist : Not Performed : X X Comment : Shon PALACIO, Meredith 11/30/2022 16:41 EST Shon PALACIO, Meredith 11/30/2022 16:41 EST Shon PALACIO, Meredith 11/30/2022 16:41 EST Shon PALACIO, Meredith - 11/30/2022 16:41 EST Manual Therapy Manual Therapy Activity 1 Activity 2 Activity 3 Type/Technique : Myofascial/Soft tissue mobilization IASTM, Myofascial/Soft tissue mobilization Other: Cupping Region : Other: achilles, gastroc and soleus Other: plantar fascia Other: R calf and ankle Equipment/Medium : Deep prep Descriptor : 10 Shon PALACIO, Meredith 11/30/2022 16:41 EST Shon PALACIO, Meredith 11/30/2022 16:41 EST Shon PALACIO, Meredith - 11/30/2022 16:41 EST Education *Barriers To Learning : None evident *Teaching Method : Demonstration, Explanation Patient Education - PT Outpatient : N/A Shon PALACIO, Meredith 11/30/2022 16:41 EST Assessment PT Response to Treatment : Tolerated well PT Clinical Assessment Summary : Pt demonstrated significant improvement in gait mechanics this session. Pt was able to keep symmetrical timing of stride in sync with metronome beats. Shon PALACIO, Meredith 11/30/2022 16:41 EST Plan Frequency : 2 [...] PT Therapeutic Exercise Time : 0 minutes RESTAURANT ASSISTANT MANAGER Therapeutic Exercise Units : 0 units PT Total Timed Code Treatment Units : 0 units PT Total Timed Code Tx Minutes : 0 minutes 8 Min Rule Unit Check PT OP : 0 units PT Total Treatment Time Rehab : 0 minutes 8 Min Rule Unit Difference PT OP : 0 Meredith Menendez PTA - 11/30/2022 16:[facility] NotePT Outpatient Progress Note Entered On: [...] Pain Score : 3 Abdoulaye Aguiar PT 11/28/2022 8:57 EST Therapeutic Exercise Custom Therapeutic Exercise Exercise 1 Exercise 2 Exercise 3 Exercise 4 Exercise : NuStep joint mobs Talocrural and subtalar Anterior glides 1st MTP Slow reversals and hold relax stretch into extension of 1st MTP Repetition/Time : 5 Grade III 5' x10 Resist or Assist : 5 Not Performed : X Comment : Abdoulaye Aguiar PT 11/28/2022 8:57 EST Abdoulaye Aguiar PT 11/28/2022 8:57 EST Dittrick PT, Abdoulaye - [...] Exercise 17 Exercise : Upright bike True [place] Strap Calf Stretch KE and KF Half [...] Exercise 22 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, 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 service 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 NEW: 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 posterior tib; athletic [...] Abdoulaye Aguiar PT - 11/28/2022 8:57 EST Manual Therapy Manual Therapy Activity 1 Activity 2 Activity 3 Type/Technique : Myofascial/Soft tissue mobilization IASTM, Myofascial/Soft tissue mobilization Other: Cupping Region : Other: achilles, gastroc and soleus Other: plantar fascia Other: R calf and ankle Equipment/Medium : Deep prep Descriptor : 15 10 Abdoulaye Aguiar PT 11/28/2022 8:57 EST Abdoulaye Aguiar PT - 11/28/2022 8:57 EST Abdoulaye Aguiar PT 11/28/2022 8:57 EST Modalities Modalities Activity 1 Modality : Iontophoresis Body Region : superior-ant med mall Settings : 14 hour patch Cosme DAWN Abdoulaye 11/28/2022 8:57 EST Taping/Bandaging/Strapping Taping/Bandaging/Strapping Grid Activity 1 Activity 2 Technique : Adhesive taping Adhesive taping Rationale : Reduce/Correct limitations/deformities Pain management, Reduce/Correct limitations/deformities Region : Other: soleus and gastroc Right foot Tape Type : Kinesiotape Athletic tape Abdoulaye Aguiar PT 11/28/2022 8:57 EST Abdoulaye [...] of foot for fascia. Abdoulaye Aguiar PT 11/28/2022 8:57 EST Plan (more content not included)...[facility] NotePT Outpatient Progress Note Entered On: 11/23/2022 [...] Physician : Name: FRANCIA COLLAZO PTA, Paula 11/23/2022 17:22 EST Therapeutic Exercise Custom Therapeutic Exercise Exercise 1 Exercise 2 Exercise 3 Exercise 4 Exercise : NuStep joint mobs Talocrural and subtalar Anterior glides 1st MTP Slow reversals and hold relax stretch into extension of 1st MTP Repetition/Time : 5 Grade III 5' x10 Resist or Assist : 5 Not Performed : X Comment : Meredith Menendez PTA 11/27/2022 13:05 EST Meredith Menendez PTA - 11/27/2022 13:05 EST Meredith Menendez PTA - 11/27/2022 13:05 EST Meredith Menendez PTA 11/27/2022 13:05 EST Exercise 5 Exercise 6 Exercise 7 Exercise 8 Exercise : Small knee bends for dynamic achilles stretch slant board stretch Eccentric T-band Posterior Tib Gait training Repetition/Time : 10 30 x 3* 10x2 HEP Resist or Assist : red Not Performed : X X Comment : *Knee extended and then bent shorter stride to normalize patter. Meredith Menendez PTA 11/27/2022 13:05 EST Meredith Menendez PTA 11/27/2022 13:05 EST Meredith Menendez PTA - 11/27/2022 13:05 EST Meredith Menendez PTA 11/27/2022 13:05 EST Exercise 9 Exercise 10 Exercise 11 Exercise 12 Exercise : Forward step downs Half dome PF/DF, INV/EV, CW/CCW Bilateral FWD stretch LAQ/ HS curls Repetition/Time : Resist or Assist : 2.5#/green Not Performed : X Comment : 2 then 4 tibial FWD translation Shon RESTAURANT ASSISTANT MANAGER, Meredith 11/27/2022 13:05 EST Shon RESTAURANT ASSISTANT MANAGER, Meredith 11/27/2022 13:05 EST Shon RESTAURANT ASSISTANT MANAGER, Meredith - 11/27/2022 13:05 EST Shon RESTAURANT ASSISTANT MANAGER, Meredith - 11/27/2022 13:05 EST Exercise 14 Exercise 15 Exercise 16 Exercise 17 Exercise : Upright bike True [place] Strap Calf Stretch KE and KF Half dome PWB alphabet Repetition/Time : 30x3 Resist or Assist : 3 115# Not Performed : X X X Comment : Shon RESTAURANT ASSISTANT MANAGER, Meredith - 11/27/2022 13:05 EST Shon RESTAURANT ASSISTANT MANAGER, Meredith 11/27/2022 13:05 EST Shon RESTAURANT ASSISTANT MANAGER, Meredith - 11/27/2022 13:05 EST Shon RESTAURANT ASSISTANT MANAGER, Meredith - 11/27/2022 13:05 EST Exercise 18 Exercise 20 Exercise 21 Exercise 22 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, 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 service 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 NEW: 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 posterior tib; athletic tape to foot to relieve PF and to soleus WS with metronome Gait trianing with metronome Repetition/Time : done 10' 15' Resist or Assist : Not Performed : Comment : Shon RESTAURANT ASSISTANT MANAGER, Meredith - 11/27/2022 13:05 EST Shon RESTAURANT ASSISTANT MANAGER, Meredith - 11/27/2022 13:05 EST Shon RESTAURANT ASSISTANT MANAGER, Meredith - 11/27/2022 13:05 EST Shon RESTAURANT ASSISTANT MANAGER, Meredith - 11/27/2022 13:05 EST Manual Therapy Manual Therapy Activity 1 Activity 2 Activity 3 Type/Technique : Myofascial/Soft tissue mobilization IASTM, Myofascial/Soft tissue mobilization Other: Cupping Region : Other: achilles, gastroc and soleus Other: plantar fascia Other: R calf and ankle Equipment/Medium : Deep prep Descriptor : 15 Shon RESTAURANT ASSISTANT MANAGER, Meredith 11/27/2022 13:05 EST Shon RESTAURANT ASSISTANT MANAGER, Meredith - 11/27/2022 13:05 EST Shon RESTAURANT ASSISTANT MANAGER, Meredith 11/27/2022 13:05 EST Education *Barriers To Learning : None evident *Teaching Method : Demonstration, Explanation Patient Education - PT Outpatient : N/A Shon PALACIO Meredith - 11/27/2022 13:05 EST Assessment PT Response to Treatment : Tolerated well PT Clinical Assessment Summary : Pt educated on focusing on gait mechanics and strengthening techniques. Meredith Menendez PTA 11/27/2022 13:05 EST Plan Frequency : 2 times per week *Duration : 6 Weeks *Treatments : Balance training, Therapeutic exercises, Pain Management, Posture/Body mechanics training, Gait training *Plan for Next Visit : Assess HEP Treatment Plan/Goals Established with Patient/Caregiver : Yes Meredith Menendez PTA 11/27/2022 13:05 EST Time Spent with Patient - Outpatient PT Time In : 00:00 EST PT Time Out : 00:00 EST PT Therapeutic Exercise Time : 0 minutes RESTAURANT ASSISTANT MANAGER Therapeutic Exercise Units : 0 units PT Total Timed Code Treatment Units : 0 units PT Total Timed Code Tx Minutes : 0 minutes 8 Min Rule Unit Check PT OP : 0 units PT Total Treatment Time Rehab : 0 minutes 8 Min Rule Unit Difference PT OP : 0 Meredith Menendez PTA 11/27[facility]2022 [facility] NotePT Outpatient Progress Note Entered [...] X Comment : not performed 09/21/22 Shon RESTAURANT ASSISTANT MANAGER, [facility] 10/22/2022 18:43 EST Shon RESTAURANT ASSISTANT MANAGER, [facility] 10/22/2022 18:43 EST Shon RESTAURANT ASSISTANT MANAGER, [facility] 10/22/2022 18:43 EST Shon RESTAURANT ASSISTANT MANAGER, [facility] 10/22/2022 18:43 EST Exercise 5 Exercise 6 Exercise 7 Exercise 8 Exercise : Small knee bends for dynamic achilles stretch slant board stretch Eccentric T-band Posterior Tib Gait training Repetition/Time : 10 30 x 3* 10x2 HEP Resist or Assist : red Not Performed : Comment : *Knee extended and then bent shorter stride to normalize patter. Shon RESTAURANT ASSISTANT MANAGER, [facility] 10/22/2022 18:43 EST Shon RESTAURANT ASSISTANT MANAGER, [facility] 10/22/2022 18:43 EST Shon RESTAURANT ASSISTANT MANAGER, [facility] 10/22/2022 18:43 EST Shon RESTAURANT ASSISTANT MANAGER, [facility] 10/22/2022 18:43 EST Exercise 9 Exercise 10 Exercise 11 Exercise 12 Exercise : Forward step downs Half dome PF/DF, INV/EV, CW/CCW Bilateral FWD stretch LAQ/ HS curls Repetition/Time : Resist or Assist : 2.5#/green Not Performed : Comment : 2 then 4 tibial FWD translation Shon RESTAURANT ASSISTANT MANAGER, [facility] 10/22/2022 18:43 EST Shon RESTAURANT ASSISTANT MANAGER, [facility] 10/22/2022 18:43 EST Shon RESTAURANT ASSISTANT MANAGER, [facility] 10/22/2022 18:43 EST Shon RESTAURANT ASSISTANT MANAGER, [facility] 10/22/2022 18:43 EST Exercise 14 Exercise 15 Exercise 16 Exercise 17 Exercise : Upright bike True [place] Strap Calf Stretch KE and KF Half dome PWB alphabet Repetition/Time : 30x3 Resist or Assist : 3 115# Not Performed : Comment : Shon RESTAURANT ASSISTANT MANAGER, [facility] 10/22/2022 18:43 EST Shon RESTAURANT ASSISTANT MANAGER, [facility] [facility] 10/22/2022 18:43 EST Shon RESTAURANT ASSISTANT MANAGER [facility] 10/22/2022 18:43 EST Shon PALACIO [facility] 10/22/2022 18:43 EST Exercise 18 Exercise 20 Exercise 22 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 Repetition/Time : 15' Resist or Assist : Not Performed : Comment : Shon PALACIO [facility] 10/22/2022 18:43 EST Shon PALACIO [facility] 10/22/2022 18:43 EST Shon PALACIO [facility] 10/22/2022 18:43 EST Manual Therapy Manual Therapy Activity 1 Type/Technique : Myofascial/Soft tissue mobilization Region : Other: achilles, gastroc and soleus Equipment/Medium : Deep prep Descriptor : 15 Shon PALACIO [facility] 10/22/2022 18:43 EST Education *Barriers To Learning : None evident *Teaching Method : Demonstration, Explanation Patient Education - PT Outpatient : N/A Shon PALACIO [facility] 10/22/2022 18:43 EST Assessment PT Response to Treatment : Tolerated well PT Clinical Assessment Summary : Unseccessful with chosing a shoe for improved gait; bases were alltoo thick, causing supination. Pt advised to purchase minimal barefoot shoes. Shon PALACIO [facility] 10/22/2022 18:43 EST Plan Frequency : 2 times per week *Duration : 6 Weeks *Treatments : Balance training, Therapeutic exercises, Pain Management, Posture/Body mechanics training, Gait training *Plan for Next Visit : assess shoes after purchase. Treatment Plan/Goals Established with Patient/Caregiver : Yes Shon PALACIO [facility] 10/22/2022 18:43 EST Time Spent with Patient - Outpatient PT Time In : 00:00 EST PT Time Out : 00:00 EST PT Therapeutic Exercise Time : 0 minutes RESTAURANT ASSISTANT MANAGER Therapeutic Exercise Units : 0 units PT Total Timed Code Treatment Units : 0 units PT Total Timed Code Tx Minutes : 0 minutes 8 Min Rule Unit Check PT OP : 0 units PT Total Treatment Time Rehab : 0 minutes 8 Min Rule Unit Difference PT OP : 0 Shon PALACIO Meredith 10/22/2022 18:43 [facility] 11-16-2022 NotePT Outpatient Progress Note Entered [...] Menendez PTA - 10/22/2022 11:06 EST Exercise 9 Exercise 10 Exercise 11 Exercise 12 Exercise : Forward step downs Half dome PF/DF, INV/EV, CW/CCW Bilateral FWD stretch LAQ/ HS curls Repetition/Time : Resist or Assist : 2.5#/green Not Performed : Comment : 2 then 4 tibial FWD translation Shon RESTAURANT ASSISTANT MANAGER, [facility] 10/22/2022 11:06 EST Shon RESTAURANT ASSISTANT MANAGER, [facility] 10/22/2022 11:06 EST Shon RESTAURANT ASSISTANT MANAGER, [facility] 10/22/2022 11:06 EST Shon RESTAURANT ASSISTANT MANAGER, [facility] 10/22/2022 11:06 EST Exercise 14 Exercise 15 Exercise 16 Exercise 17 Exercise : Upright bike True [place] Strap Calf Stretch KE and KF Half dome PWB alphabet Repetition/Time : 30x3 Resist or Assist : 3 115# Not Performed : Comment : Shon PALACIO, [facility] 10/22/2022 11:06 EST Shon [facility] 10/22/2022 11:06 EST Shon [facility] 10/22/2022 11:06 EST Shon [facility] 10/22/2022 11:06 EST Exercise 18 Exercise 20 Exercise 22 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, 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 service 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 NEW: 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 posterior tib; athletic tape to foot to relieve PF and to soleus Gait trianing with B walking sticks Repetition/Time : done Resist or Assist : Not Performed : Comment : Shon PALACIO, [facility] 10/22/2022 11:06 EST Shon [facility] 10/22/2022 11:06 EST Shon [facility], [facility] 10/22/2022 11:06 EST Manual Therapy Manual Therapy Activity 1 Type/Technique : Myofascial/Soft tissue mobilization Region : Other: achilles, gastroc and soleus Equipment/Medium : Deep prep Descriptor : [facility] 11:06 EST Modalities Modalities Activity 1 Activity 2 Activity 3 Modality : Iontophoresis Ultrasound Hot packs Body Region : Post Tib under MMall Post Tib L soleus and ankle Settings : 14 hr patch 1.5 w/cm, 50% Minutes : 10 minutes Shon [facility] 10/22/2022 11:06 EST Meredith Menendez PTA - 10/22/2022 11:06 EST Shon Meredith PALACIO - 10/22/2022 11:06 EST Education *Barriers To Learning : None evident *Teaching Method : Demonstration, Explanation Patient Education - PT Outpatient : N/A Shon HAKEEM Meredith - 10/22/2022 11:06 EST Assessment PT Response to Treatment : Tolerated well PT Clinical Assessment Summary : Pt responded well to today's treatment, with improved mobility anddecreased pain. Able to ambulate without cane upon exit. Meredith Menendez PTA - 10/22/2022 11:06 EST Plan Frequency : 2 [...] PT Therapeutic Exercise Time : 0 minutes RESTAURANT ASSISTANT MANAGER Therapeutic Exercise Units : 0 units PT Total Timed Code Treatment Units : 0 units PT Total Timed Code Tx Minutes : 0 minutes 8 Min Rule Unit Check PT OP : 0 units PT Total Treatment Time Rehab : 0 minutes 8 Min Rule Unit Diff (more content not included)...[facility]01-13-2023 NotePT Outpatient Progress Note Entered On: 2022 [...] Not Performed : X Comment : Shon RESTAURANT ASSISTANT MANAGER, Meredith 2022 10:16 EST Shon RESTAURANT ASSISTANT MANAGER, Meredith 2022 10:16 EST Shon RESTAURANT ASSISTANT MANAGER, Meredith - 2022 10:16 EST Shon RESTAURANT ASSISTANT MANAGER, Meredith 2022 10:16 EST Exercise 5 Exercise 6 Exercise 7 Exercise 8 Exercise : Small knee bends for dynamic achilles stretch slant board stretch Eccentric T-band Posterior Tib Gait training Repetition/Time : 10 30 x 3* 10x2 HEP Resist or Assist : red Not Performed : X X Comment : *Knee extended and then bent shorter stride to normalize patter. Shon RESTAURANT ASSISTANT MANAGER, Meredith 2022 10:16 EST Shon RESTAURANT ASSISTANT MANAGER, Meredith 2022 10:16 EST Shon RESTAURANT ASSISTANT MANAGER, Meredith 2022 10:16 EST Shon RESTAURANT ASSISTANT MANAGER, Meredith 2022 10:16 EST Exercise 9 Exercise 10 Exercise 11 Exercise 12 Exercise : Forward step downs Half dome PF/DF, INV/EV, CW/CCW Bilateral FWD stretch LAQ/ HS curls Repetition/Time : Resist or Assist : 2.5#/green Not Performed : X Comment : 2 then 4 tibial FWD translation Shon RESTAURANT ASSISTANT MANAGER, Meredith - 2022 10:16 EST Shon RESTAURANT ASSISTANT MANAGER, Meredith 2022 10:16 EST Shon RESTAURANT ASSISTANT MANAGER, Meredith 2022 10:16 EST Shon RESTAURANT ASSISTANT MANAGER, Meredith 2022 10:16 EST Exercise 14 Exercise 15 Exercise 16 Exercise 17 Exercise : Upright bike True [place] Strap Calf Stretch KE and KF Half dome PWB alphabet Repetition/Time : 30x3 Resist or Assist : 3 115# Not Performed : X X Comment : Shon RESTAURANT ASSISTANT MANAGER, Meredith 2022 10:16 EST Shon RESTAURANT ASSISTANT MANAGER, Meredith 2022 10:16 EST Shon RESTAURANT ASSISTANT MANAGER, Meredith 2022 10:16 EST Shon HAKEEM Meredith 2022 10:16 EST Exercise 18 Exercise 20 Exercise 21 Exercise 22 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 Shonmila PALACIO Meredith 2022 10:16 EST Plan Frequency : 2 times per week *Duration : 6 Weeks *Treatments : Balance training, Therapeutic exercises, Pain Management, Posture/Body mechanics training, Gait training *Plan for Next Visit : continue gait work Treatment Plan/Goals Established with Patient/Caregiver : Yes New Menendez PTAa 2022 10:16 EST Time Spent with Patient - Outpatient PT Time In : 00:00 EST PT Time Out : 00:00 EST PT Therapeutic Exercise Time : 0 minutes RESTAURANT ASSISTANT MANAGER Therapeutic Exercise Units : 0 units PT Total Timed Code Treatment Units : 0 units PT Total Timed Code Tx Minutes : 0 minutes 8 Min Rule Unit Check PT OP : 0 units PT Total Treatment Time Rehab : 0 minutes 8 Min Rule Unit Difference PT OP : 0 [facility]onmila [facility] Progress Note Entered [...] to normalize patter. Abdoulaye Aguiar PT - 11/16/2022 9:01 EST Abdoulaye Aguiar PT - 11/16/2022 9:01 EST Abdoulaye Aguiar PT - 11/16/2022 9:01 EST Abdoulaye Aguiar PT - 11/16/2022 9:01 EST Exercise 9 Exercise 10 Exercise 11 Exercise 12 Exercise : Forward step downs Half dome PF/DF, INV/EV, CW/CCW Bilateral FWD stretch LAQ/ HS curls Repetition/Time : Resist or Assist : 2.5#/green Not Performed : X Comment : 2 then 4 tibial FWD translation Trinitydudley PT, Abdoulaye - 11/16/2022 9:01 EST Trinityttrick PT, Abdoulaye - 11/16/2022 9:01 EST Trinityttrick PT, Abdoulaye - 11/16/2022 9:01 EST Dittrick PT, Abdoulaye - 11/16/2022 9:01 EST Exercise 14 Exercise 15 Exercise 16 Exercise 17 Exercise : Upright bike True [place] Strap Calf Stretch KE and KF Half dome PWB alphabet Repetition/Time : 30x3 Resist or Assist : 3 115# Not Performed : X X X Comment : Cosme PT, Abdoulaye - 11/16/2022 9:01 EST Daphnerick PT, Abdoulaye - 11/16/2022 9:01 EST Trinityttrick PT, Abdoulaye - 11/16/2022 9:01 EST Trinityttrick PT, Abdoulaye - 11/16/2022 9:01 EST Exercise 18 Exercise 20 Exercise 21 Exercise 22 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, 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 service 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 NEW: 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 posterior tib; athletic tape to foot to relieve PF and to soleus WS with metronome Gait trianing with metronome Repetition/Time : done 10' 15' Resist or Assist : Not Performed : Comment : Cosme PT, Abdoulaye - 11/16/2022 9:01 EST Trinityttrick PT, Abdoulaye - 11/16/2022 9:01 EST Dittrick PT, Abdoulaye - 11/16/2022 9:01 EST Cosme PT, Abdoulaye 11/16/2022 9:01 EST Manual Therapy Manual Therapy Activity 1 Activity 2 Activity 3 Type/Technique : Myofascial/Soft tissue mobilization IASTM, Myofascial/Soft tissue mobilization Other: Cupping Region : Other: achilles, gastroc and soleus Other: plantar fascia Other: R calf and ankle Equipment/Medium : Deep prep Descriptor : 15 Cosme PT, Abdoulaye - 11/16/2022 9:01 EST Cosme DAWN, Abdoulaye - 11/16/2022 9:01 EST Cosme DAWN, Abdoulaye - 11/16/2022 9:01 EST Modalities Modalities Activity 1 Modality : Iontophoresis Body Region : superior-ant med mall Settings : 14 hour patch Minutes : 10 minutes Abdoulaye Aguiar PT - 11/16/2022 9:01 EST Education *Barriers To Learning : None evident *Teaching Method : Explanation Patient Education - PT Outpatient : Home exercise program - progression/modification Cosme DAWN, Abdoulaye - 11/16/2022 9:01 EST Assessment PT Clinical Assessment Summary : Sebastián session well; as patient still recovering from painful med ankle worked primarily on STM of calf and achilles including use of smart tools, some ankle mobs, ex and ionto to involved area. Cosme DAWN, Abdoulaye - 11/16/2022 9:01 EST Plan Frequency [...] 09:47 EST PT Ther (more content not included)...[facility]01-13-2023 NotePT Outpatient Progress Note Entered On: 11/09/2022 [...] Physician : Name: FRANCIA COLLAZO PTA, Paula 11/09/2022 9:50 EST Subjective : Pt was very sore and fatigued after last visit but feels it was a significant progression towards normalizing gait. Has been working on symmetrical stepping but pain is limiting. has returned to use of cane, but is maintaining work on WS and improved pattern. Shon RESTAURANT ASSISTANT MANAGER, Meredith 11/09/2022 17:23 EST Therapeutic Exercise : Yes Shon RESTAURANT ASSISTANT MANAGER, Meredith 11/09/2022 9:50 EST Therapeutic Exercise Custom Therapeutic Exercise Exercise 1 Exercise 2 Exercise 3 Exercise 4 Exercise : NuStep joint mobs Talocrural and subtalar Anterior glides 1st MTP Slow reversals and hold relax stretch into extension of 1st MTP Repetition/Time : 5 Grade III 5' x10 Resist or Assist : 5 Not Performed : X X Comment : Shon RESTAURANT ASSISTANT MANAGER, Meredith 11/09/2022 9:50 EST Shon RESTAURANT ASSISTANT MANAGER, Meredith 11/09/2022 9:50 EST Shon RESTAURANT ASSISTANT MANAGER, Meredith 11/09/2022 9:50 EST Shon RESTAURANT ASSISTANT MANAGER, Meredith 11/09/2022 9:50 EST Exercise 5 Exercise 6 Exercise 7 Exercise 8 Exercise : Small knee bends for dynamic achilles stretch slant board stretch Eccentric T-band Posterior Tib Gait training Repetition/Time : 10 30 x 3* 10x2 HEP Resist or Assist : red Not Performed : X X Comment : *Knee extended and then bent shorter stride to normalize patter. Shon RESTAURANT ASSISTANT MANAGER, Meredith - 11/09/2022 9:50 EST Shon RESTAURANT ASSISTANT MANAGER, Meredith 11/09/2022 9:50 EST Shon RESTAURANT ASSISTANT MANAGER, Meredith 11/09/2022 9:50 EST Shon RESTAURANT ASSISTANT MANAGER, Meredith 11/09/2022 9:50 EST Exercise 9 Exercise 10 Exercise 11 Exercise 12 Exercise : Forward step downs Half dome PF/DF, INV/EV, CW/CCW Bilateral FWD stretch LAQ/ HS curls Repetition/Time : Resist or Assist : 2.5#/green Not Performed : X Comment : 2 then 4 tibial FWD translation Shon RESTAURANT ASSISTANT MANAGER, Meredith 11/09/2022 9:50 EST Shon RESTAURANT ASSISTANT MANAGER, Meredith 11/09/2022 9:50 EST Shon RESTAURANT ASSISTANT MANAGER, 11/09/2022 9:50 EST Shon RESTAURANT ASSISTANT MANAGER, 11/09/2022 9:50 EST Exercise 14 Exercise 15 Exercise 16 Exercise 17 Exercise : Upright bike True [place] Strap Calf Stretch KE and KF Half dome PWB alphabet Repetition/Time : 30x3 Resist or Assist : 3 115# Not Performed : X X Comment : Shon RESTAURANT ASSISTANT MANAGER, 11/09/2022 9:50 EST Shon RESTAURANT ASSISTANT MANAGER, 11/09/2022 9:50 EST Shon RESTAURANT ASSISTANT MANAGER, 11/09/2022 9:50 EST Shon RESTAURANT ASSISTANT MANAGER, 11/09/2022 9:50 EST Exercise 18 Exercise 20 Exercise 21 Exercise 22 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, telegraphic service dispatcher NEW: 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 posterior tib; athletic tape to foot to relieve PF and to soleus WS with metronome Gait trianing with metronome Repetition/Time : done 10' 15' Resist or Assist : Not Performed : Comment : Shon RESTAURANT ASSISTANT MANAGER, 11/09/2022 9:50 EST Shon RESTAURANT ASSISTANT MANAGER, 11/09/2022 9:50 EST Shon RESTAURANT ASSISTANT MANAGER, 11/09/2022 9:50 EST Shon RESTAURANT ASSISTANT MANAGER, 11/09/2022 9:50 EST Manual Therapy Manual Therapy Activity 1 Activity 2 Activity 3 Type/Technique : Myofascial/Soft tissue mobilization IASTM, Myofascial/Soft tissue mobilization Other: Cupping Region : Other: achilles, gastroc and soleus Other: plantar fascia Other: R calf and ankle Equipment/Medium : Deep prep Descriptor : 15 5' static Shon RESTAURANT ASSISTANT MANAGER, Meredith - 11/09/2022 17:23 EST Shon RESTAURANT ASSISTANT MANAGER, Meredith - 11/09/2022 17:23 EST Shon RESTAURANT ASSISTANT MANAGER, Meredith - 11/09/2022 17:23 EST Modalities Modalities Activity 1 Modality : Iontophoresis Body Region : R Plantar fascia Shon RESTAURANT ASSISTANT MANAGER, Meredith - 11/09/2022 17:23 EST Education *Barriers To Learning : None evident *Teaching Method : Demonstration, Explanation Patient Education - PT Outpatient : N/A Shon RESTAURANT ASSISTANT MANAGER, 11/09/2022 17:23 EST Assessment PT Response to [...] 00:00 EST PT Time (more content not included)...[facility]01-11-2023 NotePROCEDURE: XR FOOT RT MIN [...] Electronically authenticated by: JERZY MURRIETA Date: 2022-11-14 13:42[facility]01-11-2023 NotePROCEDURE: XR FOOT RT MIN 3 VIEWS, [...] Electronically authenticated by: JERZY MURRIETA Date: 2022-11-14 13:42[facility]12-30-2022 NotePT Outpatient Progress Note Entered On: 11/02/2022 [...] to normalize patter. Dittrick PT, Abdoulaye - 11/02/2022 14:13 EST [...] Exercise 22 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, telegraphic service dispatcher NEW: 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 posterior tib; athletic tape to foot to relieve PF and to soleus Gait trianing with B walking sticks Repetition/Time : done Resist or Assist : Not Performed : Comment : Dittrick PT, Abdoulaye - 11/02/2022 10:18 EST Dittrick PT, Abdoulaye - 11/02/2022 10:18 EST Dittrick PT, Abdoluaye - 11/02/2022 10:18 EST Manual Therapy Manual Therapy Activity 1 Activity 2 Type/Technique : Myofascial/Soft tissue mobilization IASTM, Myofascial/Soft tissue mobilization Region : Other: achilles, gastroc and soleus Other: plantar fascia Equipment/Medium : Deep prep Descriptor : 15 15 Abdoulaye Aguiar PT - 11/02/2022 10:18 EST Cosme PTAbdoulaye - 11/02/2022 10:18 EST Modalities Modalities Activity 1 Activity 2 Activity 3 Modality : Iontophoresis Ultrasound Hot packs Body Region : PF and post tib (prox) achilles, PT, PF L soleus and ankle Settings : 14 hr patch 1.5 w/cm, 50% Minutes : 12 minutes Abdoulaye Aguiar PT - 11/02/2022 10:18 EST Cosme PTAbdoulaye - 11/02/2022 10:18 EST Cosme PTAbdoulaye - 11/02/2022 10:18 EST Education *Barriers To [...] 09:00 EST PT T (more content not included)...[facility]12-30-2022 NotePT Outpatient Progress Note Entered On: 10/26/2022 [...] : Deep prep Descriptor : 15 Shon PALACIO [facility] 10/26/2022 9:49 EST Gait Analysis PMR Ambulation Comments : Assessment of gait with various Minimal Barefoot shoes for proper mechanics and stability. Pt demonstrates improved alignment and decreased supination with WBing. Pt educated on discontinued use of insert to improve contact. Shon PALACIO [facility] 10/26/2022 9:49 EST Education *Barriers To Learning [...] Established with Patient/Caregiver : Yes Shon PALACIO [facility] 10/26/2022 9:49 EST Time Spent with Patient - Outpatient PT Time In : 00:00 EST PT Time Out : 00:00 EST PT Soft Tissue Mobility Time : 0 minutes RESTAURANT ASSISTANT MANAGER Soft Tissue Mobility Units : 0 units PT Total Timed Code Treatment Units : 0 units PT Total Timed Code Tx Minutes : 0 minutes 8 Min Rule Unit Check PT OP : 0 units PT Total Treatment Time Rehab : 0 minutes 8 Min Rule Unit Difference PT OP : 0 [facility] History of Present illness NarrativePatient [...] states sheusually has an infection after completing antibiotic.[facility] Work Phone: 1(812) 602-914510-30-2022 History of Present illness NarrativePatient is a [...] states sheusually has an infection after completing antibiotic.[facility] Work Phone: 1(828) 203-465809-21-2022 NotePROCEDURE: XR ANKLE RT MIN 3 VIEWS [...] Electronically authenticated by: JERZY MURRIETA Date: 2022-07-25 17:41[facility]06-23-2022 NotePROCEDURE: XR ANKLE RT MIN 3 VIEWS [...] Electronically authenticated by: JERZY MURRIETA Date: 2022-04-26 09:59[facility]02-14-2022 History of Present illness Narrative* Patient is [...] once a week for right ankle pain. -[facility] Work Phone: 1(850) 762-993501-01-2022 History of Present illness Narrative* 41y female [...] have any effect on her flank pain. [facility] [address] Work Phone: 1(986) 839-359701-01-2022 History of Present illness Narrative* 41y female [...] have any effect on her flank pain. -[facility] Work Phone: 1([phone]) 495-750606-01-2020 History general Narrative - Reported* Type Description Date Surgical History dislocated talus-Cristian 04/05 020 Surgical History total talus implant-Dr Vance 12/2020 Surgical History plantar fasciotomy 04/2021 Surgical History ankle arthroplasty, tenotomy, p lantar fascia 01/2023 Hospitalization History see above [facility] Other Evaluation noteNo InformationNort Sway Other Evaluation note* Diagnosis Avascular necrosis of right talus ([facility]/HCC)- Primary Benign essential hypertension Essential hypertension, benign Morbid obesity with body mass index (BMI) of 50.0 to 59.9 in adult ([facility]/HCC) documented in this encounter [facility] Work Phone: Evaluation note* Diagnosis Bronchitis- Primary Bronchitis, not specified as acute or chronic documented in this encounter [facility] Work Phone: Evaluation note* Diagnosis Adjustment disorder with mixed anxiety and depressed mood- Primary Weakness of both lower extremities Bilateral hip pain Pain in joint, pelvic region and thigh documented in this encounter [facility] Work Phone: History of Present illness [...] [facility] Work [facility] History of Present illness [...] will be going on vacation tomorrow to [place]. [facility] Work Phone: History of Present illness Narrative* [...] will be going on vacation tomorrow to [place]. [facility] Work Phone: History of Present illness Narrative* [...] a follow up appointment with her surgeon luis alfredo dejesus options. She is not ready for surgery. [...] * Patient would like a referral to ob-collar folder operator. * Patient reports she has lost weight 55 lbs since March with [employer]. -[facility] Work Phone: History of Present illness Narrative* [...] a follow up appointment with her surgeon luis alfredo her laurie. She is not ready for surgery. She [...] * Patient would like a referral to ob-collar folder operator. * Patient reports she has lost weight 55 lbs since March with [employer]. [facility] Work Phone: History of Present illness Narrative* [...] * Patient would like a referral to ob-collar folder operator. * Patient reports she has lost weight 55 lbs since March with [employer]. -[facility] Work Phone: History of Present illness Narrative* [...] both legs. Applying heat helps a little. [facility] Work Phone: History of Present illness Narrative* [...] both legs. Applying heat helps a little. [facility] Work Phone: Reason for referral (narrative)* Consultation (Routine) - Pending Review Specialty Diagnoses / Procedures Referred By Aaron gilliam Referred To Contact Physical Therapy Diagnoses B[place] [address] [facility] [address] [place] [id number] Referral ID Status Reason Start Date Expiration Date Visits Requested Visits Authorized [id number] Pending Review Specialty Services Required 12/27/2023 12/26/2024 1 1 [facility] Work Phone: Summary Purpose Family History Unknown [...] XR chest [place] [address] [address] Referral ID Status Reason Start Date Expiration Date Visits Requested Visits Authorized [id number] Authorized Perform Procedure 3 10/20/2024 1 1 Additional Source Comments INFORMATION SOURCE (unrecogn ized section and content) DATE CREATED AUTHOR 10/11/2020 [employer] DATE CREATED AUTHOR AUTHOR'S ORGANIZ ATION 11/19/[address] [facility] DATE CREATED AUTHOR AUTHOR'S ORGANIZ ATION 01/25/2022 [facility] DATE CREATED AUTHOR AUTHOR'S ORGANIZ ATION 09/12/2022 [facility] DATE CREATED AUTHOR AUTHOR'S ORGANIZ ATION 09/16/2022 [employer] DATE CREATED AUTHOR AUTHOR'S ORGANIZ ATION 03/09/2023 [facility] DATE CREATED AUTHOR AUTHOR'S ORGANIZ ATION 07/19/2023 [facility] DATE CREATED AUTHOR AUTHOR'S ORGANIZ ATION 10/26/2023 [facility] DATE CREATED AUTHOR AUTHOR'S ORGANIZ ATION 01/04/2024 [facility] REASON FOR VISIT (unrecogniz ed section [...] Care Teams (unrecognized sec tion and content) [employer] Relationship Specialty [place] [address] [place] [address] PCP - General 06/01/13 [place] [address] [place] [id number] PCP - MMO ACO PCP 01/02/23 [facility] Cook And Baker Relationship Specialty [place] [id number] [address] [address] PCP - General 06/01/13 [place] [id number] [id number] [place] [address] PCP - MMO ACO PCP 01/02/23 Second Cook And Baker Relationship Specialty [place] [id number] [id number] [place] [address] PCP - General 06/01/13 [place] [id number] [id number] [place] [address] PCP - MMO ACO PCP 11/04/23 FOR [...] BE BASED ON THE PRIMARY CLINICAL RECORDS. [facility]. provides no warranty or guarantee of the accuracy or completeness of information in this document.
[2024-01-27 06:27] LABS: Basophils Absolute Auto 0.1 10^3/uL (0.0-0.1); Basophils Percent Auto 0.6 % (0.2-2.0); Eosinophils Absolute Auto 0.2 10^3/uL (0.0-0.7); Eosinophils Percent Auto 1.7 % (0.9-7.0); Hematocrit 42.4 % (36.0-48.0); Hemoglobin 13.3 g/dL (12.0-16.0); Immature Granulocytes Abs Auto 0.03 10^3/uL (0.00-0.03); Immature Granulocytes Pct Auto 0.3 % (0.0-0.5); Lymphocytes Absolute Auto 2.4 10^3/uL (1.2-3.8); Mean Corpuscular HGB Conc 31.4 g/dL (29.9-35.2); Mean Corpuscular Hemoglobin 28.2 pg (26.7-34.0); Mean Corpuscular Volume 89.8 fL (81.0-99.0); Mean Platelet Volume 8.6 fL (9.5-13.5); Monocytes Absolute Auto 0.6 10^3/uL (0.3-0.8); Monocytes Percent Auto 6.6 % (1.7-12.0); Neutrophils Absolute Auto 5.4 10^3/uL (1.4-6.5); Neutrophils Percent Auto 62.8 % (43.0-75.0); Platelet Count 322 10^3/uL (150-450); Red Blood Count 4.72 10^6/uL (4.20-5.40); Red Cell Distribution Width 13.8 % (11.0-15.0); White Blood Count 8.6 10^3/uL (4.0-11.0)
[2024-01-27 06:42] LABS: Glucometer 99 mg/dL (74-106)
[2024-01-27 06:50] LABS: HCG Qualitative NEGATIVE (NEGATIVE)
[2024-01-27] MEDS: SCOPOLAMINE 1 MG/3 DAYS TRANSDERM PATCH 1 PATCH TD (07:12)
[2024-01-27] MEDS: LACTATED RINGER'S SOLUTION 1,000 ML 50 ML IV ×2 (07:13→10:36)
[2024-01-27] MEDS: CEFAZOLIN SODIUM 3,000 MG in 0.9 % SODIUM CHLORIDE 100 ML 200 MG IV (08:02)
--- NOTE | 2024-01-27 08:14 | PC.NURSE ---
Consent obtained per Dr Mendez for nerve block. Time out completed. Patient positioned with O2 and monitors on. A popliteal and femoral block was completed. Patient tolerated well. Patient remained on monitors until taken to OR.
[2024-01-27] MEDS: BUPIVACAINE HCL 0.5% PF 50 MG/10 ML VIAL 20 ML INJ (11:35)
--- NOTE | 2024-01-27 11:41 | P.ORON_ITS ---
Brief Operative Note Date of procedure: 01/27/24 Pre-op diagnosis: right talar AVN, ankle/subtalar arthritis, equinus, s/p total talus replace Post-op diagnosis: other (right talar avascular necrosis with ankle and subtalar joint arthritis, s/p total talus replacement and equinus) Procedure: PROCEDURES PERFORMED: right ankle and subtalar joint fusions, removal of total talus implant, tendo Achilles lengthening and harvest of tibial bone graft INDICATION FOR PROCEDURES: patient is a 43-year-old female who was diagnosed with avascular necrosis of the talus in 2019 and underwent total talus replacement in December 2020. He subsequently also developed plantar fasciitis, Achilles tendinitis and peroneal tendinopathy. Over the last three years her symptoms of ankle pain and inability to fully bear weight only progressed despite multiple courses of physical therapy, surgical intervention including ankle arthroscopy and repairs of soft tissue pathology, shoe modification, activity modification and bracing. Recent CT scan show progression of her arthritis in the posterior facet of the calcaneus as well as the distal tibia. Due to her failed total talus replacement I recommended to converted to a fusion and after multiple conversations regarding the potential risks and benefits and patient expectations patient elected to undergo fusion as a salvage suture. INTRAOPERATIVE FINDINGS: reduced ankle joint dorsiflexion was noted. Total talus implant was stable but there was joint space narrowing and mild to moderate cartilage erosion. Subchondral bone plate was sclerotic of the distal tibia and posterior facet of the calcaneus. Bone quality was within normal limits given patient's age and gender. No signs of infection PROCEDURES IN DETAIL: Patient was identified in pre op and consent was reviewed. Correct side and site were identified and marked. Regional anesthesia performed by the anesthesia team. Pre-op antibiotics were started. Patient was brought to OR suite and place on table in a supine position. General anesthesia was administered. Tourniquet applied. Operative extremity was prepped and draped in usual sterile fashion. Formal time-out was performed and the foot/ankle were exsanguinated and tourniquet inflated. Utilizing a stab incision over the mid substance of the Achilles tendon, a scalpel was used to fully release the Achilles tendon. Significant increase in ankle joint dorsiflexion was noted on the table. Lateral extensile incision was placed over the distal fibula and extended over the sinus tarsi. Comminution sharp and blunt dissection gained access to the fibular malleolus. An osteotomy of the fibula was performed and the distal fibula was excised and passed the back table. Access was gained to the ankle and subtalar joints and exposure of the entire talus implant was performed. with the aid of osteotomes the talus implant was removed and passed back table. The distal tibia and calcaneal facets were prepared for fusion by removing all cartilage with the utilization of curettes, osteotomes, acetabular reamer and subchondral drilling with a 2.0 mm drill bit. The areas were irrigated with copious amounts of sterile saline multiple times. A talar trial was placed in the talar space. Utilizing C-arm a proper starting point on the plantar surface of the calcaneus was marked. A longitudinal incision over the plantar heel was created blunt dissection down to the plantar calcaneus was performed. Then utilizing a large guidepin the calcaneus and tibia were pinned and held in place. This wire was then placed into the distal tibia and was confirmed to be within regularity canal and advanced accordingly. Starting with the smallest reamer provided in the tray and the calcaneus, talus and tibia were reamed followed by 0.5 mm larger reamer in succession until chatter was obtained in the tibial isthmus. Largest reaming with an 11.5 mm reamer followed by a 13.5 mm reamer to accommodate the distal aspect of the nail was performed for a 10 x 300 mm nail. All reamings collected as tibial autograft with use of the [employer] Bone Press and corresponding suction device. 9 mL of solid bone graft was from bone marrow aspirate (18 mL) utilizing the bone press. The solid graft was impacted into the small size talar cage. On the back table, the appropriate sized nail was attached to the jig and the nitinol element was stretched to 6 mm. The guidepin was removed and the nail was placed to the appropriate depth and rotation. X-ray was evaluated for proper positioning of the nail. Stab incisions over the posterior and lateral aspect of the calcaneus were placed followed by blunt dissection down to bone was performed. The lateral to medial calcaneus hole was drilled with the corresponding cannula and a 5.0 mm screws was placed. Next, the distal most screw was drilled from posterior to anterior under fluoroscopy guidance. A 5.0 mm screw was then placed from a posterior anterior direction through the nail holes distally. A stab incision was placed over the mid shaft of the tibia followed by blunt dissection down to bone. Then the tibia drilled transversly with a compression bear accordingly with the appropriate drill sleeves across the dynamic proximal slot an additional stab incision was placed to allow passage of the compression bear. Then utilizing the jig the ankle and subtalar joints were compressed until there was a slight bend in the compression rods. 5 mm of manual compression was obtained which was visualized under fluoroscopy. Next the medial stab incision was extended proximally and distally followed by blunt dissection down to bone. A static crosslock screw was placed accordingly across the midshaft with the aide of the jig under fluoroscopic guidance. The manual compression was removed followed by the compression bear. An additional 5.0 mm screw was placed transver sely across the dynamic slot in the tibia. The jig was then removed after confirming proper hardware placement. An end cap on the distal aspect of the nail was then placed and confirmed under fluoroscopy. The surgical sites were irrigated and all incisions were closed in layers. A dry sterile dressing consisting of Xeroform on the incisions followed by 4 x 4 gauze, ABDs, and Kerlix were applied. Multiple layers of cast padding were then applied to ensure all bony prominences were well-padded. A plaster posterior splint was then applied which was held in place by Marck wraps. Capillary refill time to all digits was evaluated and had appropriate response. POSTOPERATIVE PLAN: Transfer to med/surg under hospitalist's care NWB operative foot/ankle Ice and elevation Tg-op antibiotics, multimodal pain medication and DVT prophylaxis ordered Consults: physical therapy & social media intern Estimated LOS 2-3 nights Will follow *NWB x8-12 weeks Implants: Medshape dynanail 10 x300 mm [id number] 3D printed talar cage Anesthesia: regional and General-LMA Surgeon: Miguel Whiteside Duplication Specialist: Maynor Glynn Estimated blood loss (mL): 50 Pathology: none sent Condition: stable Disposition: PACU
--- NOTE | 2024-01-27 12:11 | XR_ITS ---
The [address] [address] Patient Name: SERA MAHONEY MRN: [id number] date: 1980 Sex: F Assigned Patient Location: [facility] Current Patient Location: [place] Accession/Order Number: [id number] Exam Date: 01/27/2024 12:45 Report Date: 01/28/2024 07:16 At the request of: KOREY SAMS Procedure: XR ankle RT min 3V PROCEDURE: XR foot RT min 3V, XR ankle RT min 3V COMPARISON: 11/20/2023 HISTORY: Postop x-ray FINDINGS: BONES:Interval ankle fusion with explant of the talus arthroplasty. Talus spacer. Retrograde intramedullary nail and proximally and distally. Moderate enthesopathic spurring of the calcaneus. Resection of the distal fibula. Bone graft material SOFT TISSUES:Postsurgical swelling and subcutaneous air EFFUSION:None visible. OTHER: Negative. XR/XR ankle RT min 3V IMPRESSION: Interval ankle fusion detailed above Electronically authenticated by: WELLINGTON NIX Date: 01/28/2024 07:16
--- NOTE | 2024-01-27 12:11 | XR_ITS ---
The [address] [address] Patient Name: SERA MAHONEY MRN: [id number] date: 1980 Sex: F Assigned Patient Location: [facility] Current Patient Location: [place] Accession/Order Number: [id number] Exam Date: 01/27/2024 12:45 Report Date: 01/28/2024 07:16 At the request of: KOREY SAMS Procedure: XR foot RT min 3V PROCEDURE: XR foot RT min 3V, XR ankle RT min 3V COMPARISON: 11/20/2023 HISTORY: Postop x-ray FINDINGS: BONES:Interval ankle fusion with explant of the talus arthroplasty. Talus spacer. Retrograde intramedullary nail and proximally and distally. Moderate enthesopathic spurring of the calcaneus. Resection of the distal fibula. Bone graft material SOFT TISSUES:Postsurgical swelling and subcutaneous air EFFUSION:None visible. OTHER: Negative. XR/XR foot RT min 3V IMPRESSION: Interval ankle fusion detailed above Electronically authenticated by: WELLINGTON NIX Date: 01/28/2024 07:16
[2024-01-27] MEDS: MEPERIDINE HCL/PF 25 MG/ML VIAL IVP (12:16)
[2024-01-27 12:27] LABS: Glucometer 147 mg/dL (74-106)
[2024-01-27] MEDS: HYDROCODONE/ACET 5-325 MG TABLET 1 TAB PO (12:29)
--- NOTE | 2024-01-27 12:38 | PC.NURSE ---
1229 gave oral pain meddication to help with pain. Patient is tearful and crying.
--- NOTE | 2024-01-27 12:50 | PC.NURSE ---
Per Dr Mendez. Patient has been given a large amount of medication to help control pain along with 2 different blocks. Patient remains tearful and physician states he has given max of meds for procedure. Patient is being moved to the floor
[2024-01-27] MEDS: CEFAZOLIN SODIUM/DEXTROSE,ISO 2 GM/50 ML PIGGYBACK IV ×2 (14:17→21:35)
[2024-01-27] MEDS: 0.9 % SODIUM CHLORIDE 250 ML 20 ML IV (14:18)
--- NOTE | 2024-01-27 14:59 | PM.PN ---
Progress Note: Subjective Subjective Interval history: patient is post op today from right ankle fusion by Dr. Whiteside. Very anxious. Reports her pain is controlled but very tearful. She is afraid to use bed kitchen. No other complaints. Exam Narrative Exam Narrative: General: Patient is alert, and oriented to person, place and time with normal affect, proper hygiene Heart: Normal rate and rhythm, no murmurs/rubs/gallops Lungs: no audible wheezes, crackles and normal breath sounds all lung dave Abdomen: Normal audible bowel sounds, no distension, No palpable masses, no organomegaly, no rebound/guarding/ or rigidity Musculoskeletal: right lower leg splint, c/d/i Neuro: CN II-X grossly intact Constitutional Vital Signs, click to edit/add: Last Vital Signs Temp 97.3 F L 01/27/24 13:59 Pulse 90 01/27/24 13:59 Resp 20 01/27/24 13:59 BP 133/89 01/27/24 13:59 Pulse Ox 96 01/27/24 13:59 O2 Del Method Room Air 01/27/24 13:59 Progress Note: Objective Labs Labs: Short CBC 01/27/24 Range/Units 06:23 WBC 8.6 (4.0-11.0) 10^3/uL Hgb 13.3 (12.0-16.0) g/dL Hct 42.4 (36.0-48.0) % Plt Count 322 (150-450) 10^3/uL Progress Note: A&P Assessment and Plan (1) Arthritis of right ankle: Assessment and Plan: post op currently, pain management and ankle care by primary podiatry team (2) Anxiety: Assessment and Plan: monitor, may benefit from some vistaril. (3) Hypertension: Assessment and Plan: continue home medications Qualifiers: Hypertension type: primary hypertension Qualified Code(s): I10 - Essential (primary) hypertension Plan full code Admitted for pain control after block. Hopeful discharge tomorrow.
[2024-01-27] MEDS: HYDROCODONE/ACET 10-325 MG TABLET 1 TAB PO ×2 (16:10→20:22)
[2024-01-27] MEDS: ENOXAPARIN SODIUM 40 MG/0.4 ML SYRINGE SUBQ (16:10)
--- NOTE | 2024-01-27 18:51 | CT_ITS ---
[address] [address] Patient Name: SERA MAHONEY MRN: [id number] date: 1980 Sex: F Assigned Patient Location: [place] Current Patient Location: [place] Accession/Order Number: [id number] Exam Date: 01/27/2024 18:30 Report Date: 01/28/2024 07:13 At the request of: KOREY SAMS Procedure: CT ankle RT wo con EXAMINATION: CT ankle RT wo con HISTORY: postop benchmark COMPARISON: Plain x-ray 01/27/2024. CT scan 12/04/2023 TECHNIQUE: Multi-planar CT images were created without IV contrast. Dose reduction techniques were achieved by using automated exposure control and/or adjustment of mA and/or kV according to patient size and/or use of iterative reconstruction technique. FINDINGS: BONES: Interval revision with removal of the talus replacement and ankle fusion. Talus spacer in place with retrograde intramedullary nail and proximally and distally. No acute fracture, dislocation or mechanical failure. Moderate enthesopathic spurring of the calcaneus at the Achilles and plantar insertions. Moderate degenerative changes throughout the midfoot with joint space narrowing marginal osteophyte formation. Resection of the distal fibula. Placement of bone graft material SOFT TISSUES: Postsurgical changes with skin thickening, subcutaneous edema, subcutaneous air and joint air and fluid EFFUSION: None visible. OTHER: Negative. CT/CT ankle RT wo con IMPRESSION: Interval ankle fusion detailed above Electronically authenticated by: WELLINGTON NIX Date: 01/28/2024 07:13
[2024-01-27] MEDS: KETOROLAC TROMETHAMINE 30 MG/ML VIAL 15 MG IVP (20:22)
[2024-01-27] MEDS: PREGABALIN 75 MG CAPSULE PO (21:35)
[2024-01-27] MEDS: AMLODIPINE BENAZEPRIL PO (21:35)
[2024-01-28] VITALS (10 sets, daily range): BP systolic 97–141; BP diastolic 61–85; PULSE 76–90; RESP 16–20; TEMP 36.4–36.9; O2SAT 96–99
[2024-01-28] MEDS: HYDROMORPHONE HCL 1 MG/ML CARTRIDGE IVP ×2 (00:02→07:56)
[2024-01-28] MEDS: ORPHENADRINE 60 MG/ 2 ML VIAL IV (00:02)
[2024-01-28] MEDS: HYDROCODONE/ACET 10-325 MG TABLET 1 TAB PO ×3 (00:19→20:09)
[2024-01-28] MEDS: CEFAZOLIN SODIUM/DEXTROSE,ISO 2 GM/50 ML PIGGYBACK IV ×3 (05:27→21:14)
[2024-01-28] MEDS: KETOROLAC TROMETHAMINE 30 MG/ML VIAL 15 MG IVP ×2 (07:56→09:57)
[2024-01-28] MEDS: ACETAMINOPHEN 500 MG TABLET 1000 MG PO ×2 (07:58→13:22)
[2024-01-28] MEDS: PREGABALIN 75 MG CAPSULE PO ×2 (08:47→21:51)
[2024-01-28] MEDS: DOCUSATE SODIUM 100 MG CAPSULE 200 MG PO ×2 (08:47→21:14)
[2024-01-28] MEDS: HYDROXYZINE PAMOATE 25 MG CAPSULE PO (08:47)
--- NOTE | 2024-01-28 10:04 | P.PN_ITS ---
Progress Note: Subjective Subjective Interval history: Patient examined and evaluated at bedside this a.m. resting somewhat comfortably, complaining of significant pain to the right lower extremity ankle region. POD #1 s/p right ankle removal of implant, ankle subtalar joint arthrodesis with tibial autograft harvest. DOS 01/27/2024. States overnight she feels her nerve block wore off and was having significant pain controlled only with IV Dilaudid. Oral hydrocodone was not helping. She is also having con siderable amount of anxiety regarding surgery and her recovery. She denies any other acute lower extremity complaints time of visit denies any constitutional symptoms. Exam Narrative Exam Narrative: RLE splint left CDI. No strikethrough. CFT intact to digits. Skin temperature warm and symmetric proximal to distal dressing. No erythema edema or ecchymosis proximal or distal. Light touch gross sensation intact to digits. Active passive range of motion digits present. Compartment soft compressible, no pain with calf or thigh compression. Constitutional Vital Signs, click to edit/add: Last Vital Signs Temp 98.4 F 01/28/24 08:35 Pulse 83 01/28/24 08:35 Resp 16 01/28/24 08:35 BP 118/79 01/28/24 08:35 Pulse Ox 99 01/28/24 08:40 O2 Del Method Room Air 01/28/24 08:35 Progress Note: A&P Assessment and Plan (1) Arthritis of right ankle: (2) Anxiety: (3) Hypertension: Qualifiers: Hypertension type: primary hypertension Qualified Code(s): I10 - Essential (primary) hypertension Plan Patient examined evaluated. All findings discussed with patient all questions answered to patient satisfaction. Pertinent labs and imaging reviewed. RLE splint to be left CDI until follow-up. Maintain strict nonweightbearing to right lower extremity. PT/OT eval pending. Managing pain control, will switch to p.o. MS Contin ER 15 q12h, IV Dilaudid 2mg and increase IV Toradol to 30 q6h for breakthrough. Lovenox for DVT prophylaxis Rest per primary Will plan for at least 1 additional night of stay due to intractable pain. Please call with any questions or concerns.
[2024-01-28] MEDS: MORPHINE SULFATE 15 MG TABLET.ER PO (10:39)
--- NOTE | 2024-01-28 11:43 | CM.NOTE ---
Rounds made with Dr. Mendez, will defer to HAILE Upton for further orders and pain control.
--- NOTE | 2024-01-28 11:50 | P.PN_ITS ---
<Statement entered by Zenaida Mendez, DO - 01/28/24 13:31> This documentation has been reviewed and approved. I agree with plan and addition of anxiolytics Progress Note: Subjective Subjective Interval history: Pt resting in bed, c/o poorly controlled post op pain early this morning, but now improving after multi-modal approach. POD #1 s/p right ankle removal of implant, ankle subtalar joint arthrodesis with tibial autograft harvest. DOS 01/27/2024. States overnight she feels her nerve block wore off and was having significant pain controlled only with IV Dilaudid. Oral hydrocodone was not helping. She is also having considerable amount of anxiety regarding surgery and her recovery. She denies any other acute lower extremity complaints, denies CP, SOB, N/V/D. Exam Constitutional Vital Signs, click to edit/add: Last Vital Signs Temp 98.4 F 01/28/24 08:35 Pulse 83 01/28/24 08:35 Resp 16 01/28/24 08:35 BP 118/79 01/28/24 08:35 Pulse Ox 99 01/28/24 08:40 O2 Del Method Room Air 01/28/24 08:35 Common normals: oriented x3 and alert General appearance: cooperative Orientation/consciousness: Yes awake HENMT Common normals: normocephalic, head/scalp atraumatic and hearing grossly normal bilaterally Eye Common normals: PERRL, EOMs intact bilaterally, conjunctivae normal and no scleral icterus General eye: normal appearance of both eyes Chest Common normals: inspection of chest normal Chest: symmetrical chest wall rise Respiratory Common normals: normal respiratory effort, no use of accessory muscles and clear to auscultation bilaterally Effort & inspection: able to speak in complete sentences Cardio Common normals: regular rate, regular rhythm, S1 normal heart sound, S2 normal heart sound and peripheral pulses 2+ throughout Heart sounds: murmur (HSM 3/6) GI Common normals: Normal to inspection, nondistended, normoactive bowel sounds present, soft to palpation, non-tender and no hepatosplenomegaly Bladder/kidney exam: bladder normal to palpation Extremity Common normals: normal to inspection, no calf tenderness and no pedal edema General: no clubbing and no cyanosis Right lower extremity: ankle joint (surgical dressing D&I) Neuro Common normals: CN's II-XII intact bilaterally, moves all extremities, no focal motor deficits and no sensory deficits noted Psych Common normals: mental status grossly normal Mood and affect: anxious and tearful Progress Note: A&P Assessment and Plan (1) Status post surgical manipulation of ankle joint: Assessment and Plan: Acute * POD #1 s/p right ankle removal of implant, ankle subtalar joint arthrodesis with tibial autograft harvest. DOS 01/27/[address]iteside * Defer pain management, weight bearing status, PT/OT orders, Surgical site dressing changes, DVT prophylaxis to the podiatry service * Admit to observation today * Likely require additional 24 hrs to attain adequate pain control (2) Arthritis of right ankle: Assessment and Plan: Chronic * See #1 (3) Anxiety: Assessment and Plan: Acute on Chronic * Pt will try vistaril PO for anxiety * Add PRN xanax if needed for additional anxiety management (4) Hypertension: Assessment and Plan: Chronic * Continue home amlodipine, banazepril Qualifiers: Hypertension type: primary hypertension Qualified Code(s): I10 - Essential (primary) hypertension
--- OUTSIDE RECORDS SUMMARY | 2024-01-28 12:49 | XMS_ITS | CCD ---
Author Organization [facility] Care Team Providers Care Product Test Engineer Name Role Phone Hetal Alonso Unavailable Unavailable Unavailable Unavailable Unavailable CELESTE, Dr. HETAL RAMOS Primary Care [facility] ARLETH Syed Attending Unavailable CELESTE, Dr. HETAL RAMOS Primary [facility] ARLETH Ji Attending Unavailable CELESTE, Dr. HETAL RAMOS Referring [facility] lab ALONSO, Dr. HETAL RAMOS Primary Care [facility] ALONSO, Dr. HETAL RAMOS Attending Unavai lable ALONSO, Dr. HETAL RAMOS Referring Unavai lable ALONSO, Dr. HETAL RAMOS Attending Unavai lable ALONSO, Dr. HETAL RAMOS Referring Unavai lable ALONSO, Dr. HETAL RAMOS Primary [facility] lab ALONSO, Dr[facility] HETAL RAMOS [facility], Dr. HETAL RAMOS Attending [facility] ALONSO, Dr. HETAL RAMOS Referring Unavai lable ALONSO, Dr. HETAL RAMOS Attending Unavai lable ALONSO, Dr. HETAL RAMOS Referring Unavai lable ALONSO, Dr. HETAL RAMOS [facility]hab[facility]ANCIA Adkins Admitting Unavailable FRANCIA COLLAZO Attending Unavailable BOYD, [...] ZIEBER, DR JERZY Watts Consulting Unavailable HIGHLANDER, FRANICA Anderson Consulting Unavailable Braden Evan Unavailable Celeste VALE, Hetal Recio Primary Care Provider Hetal Alonso MD Unavailable [phone] ALONSO, HETAL Primary Care Unavailable HUTCHINSON DPM, [...] Unavailable ALONSO, HETAL K Primary Care Unavailable ALONSOHETAL K Attending Unavailable ALONSO, HETAL K Primary Care Unavailable ALONSO, HETAL K Attending Unavailable ALONSO, HETAL K Primary Care Unavailable Hetal Alonso MD Unavailable Allergies Allergy Classification Reported Allergen(s) Allergy Type Date of Onset Reaction(s) Facility Acetaminophen / oxyCODONE (2 sources) Acetaminophen / oxyCODONE; Translations: [Percocet TABS] Drug Allergy [facility] [place] [employer] Work Phone: Macrolides (antibiotic) (1 source) Azithromycin; Translations: [Zithromax PACK] Drug Allergy [facility] [employer] Work Phone: (20 sources) Acetaminophen / oxyCODONE; Translations: [Percocet TABS] Drug Allergy 2 Hallucinations, Rash [facility] [employer] Work Phone: (19 sources) Azithromycin; Translations: [Zithromax PACK] Drug Allergy 2 Rash [facility] [place] [employer] Work Phone: (2 sources) Acetaminophen / oxyCODONE Drug Allergy [facility] Repository (2 sources) Adhesive agent Drug allergy (disorder) [facility] Repository (3 sources) Azithromycin; Translations: [AZITHROMYCIN] Drug Allergy 2 [facility] Repository (1 source) Acetaminophen / oxyCODONE; Translations: [OXYCODONE-ACETAM INOPHEN] Drug Allergy 2 [facility] 3 Repository Medications Current Medications Medication Drug Class(es) Dates Sig (Normalized) Sig (Original) acetaminophen 325 mg / HYDROcodone bitartrate 5 mg oral tablet (6 sources) Opioid Agonist take 1 tablet by mouth every six hours HYDROcodone-Aceta minophen 5-325 MG 1 tablet as needed Orally every 6 hrs Active [id number] 200 actuat albuterol 0.09 mg/actuat metered dose [...] oral solution (1 source) alpha-Adrenergic Agonist, Uncompetitive G-tyovko-Z-aspartat e Receptor Antagonist, Sigma-1 Agonist Start: 10-21-2023 [...] Onset: 01-23-2023 Chronic Other aftercare (1 source) 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 aspirin; Translations: [LONGTERM CURRENT USE OF ASPIRIN] Onset: 01-23-2023 Episodic [...] syndrome Your Care Team Attending Physician - MELI VALE, DEWAYNE Mcclain Primary Care Physician - HETAL ALONSO MD [...] 15, 2023 09:00 am EDT LW PT [address] [facility] [address] PM Follow Up LE pain Saturday DEWAYNE GARRISON MD June 17, 2023 01:15 pm EDT MM PMCL [address] [facility] [address] [facility] [address] Medications What How Much When Why Instructions New meloxicam (Mobic 15 mg oral tablet) 1 Tabs Oral DAILY Duration: 30 Days Refills: 5 Pickup at [facility] #87261 New topiramate (Topamax 50 mg oral tablet) See instructions Refills: 5 1-2 tabs ORAL HS Pickup at [facility] #31828 New venlafaxine (venlafaxine 37.5 mg oral tablet = effexor) 1 Tabs Oral TWICE A DAY Duration: 30 Days Refills: 5 Pickup at [facility] #93831 Unchanged acetaminophen-hydrocodone (acetaminophen-HYDROcodone 325 mg-5 mg oral [...] for as needed for nausea/vomiting [id number] [address] [place], [place] [id number] [phone] What How Much When Comments Stop Taking [...] call to get immediate medical attention! Normal [facility] Comprehensive Intake - Texto n [...] vaccine administered or previously received : No Destiene James - 05/14/2023 11:18 EDT Measurements Ht/Wt [...] in, 168 cm) Body Mass Index Measured Guamanian : 45.19 kg/m2 BSA Guamanian : 2.43 m2 Destinee James 05/14/2023 11:18 [...] risk situation (congregated living, hemodialysis, infusion clinic, penitentiary, assisted living, residential, homeless group home, etc.)? : No Destinee James 05/14/2023 11:18 [...] last year Destinee James 05/14/2023 11:18 EDT [facility] PM-OP Progress Notes-Provide puja 05-14-2023 PM-OP Progress Notes-Provider Chief Complaint pt reports pain in ankle and foot, pt rartes pain a 5 out of 10 on vas, pt name and verifed. History of Present Illness This is a pleasant 42-year-old patient who presents to the pain clinic at [facility], for evaluation and treatment of [...] and went to see a doctor in [place]. She had 3 deep printed talus implant [...] since her injury. She is now a hbue-is-mpaf mom. Patient does want to go back to work and be able to perform activities of her daily living without any assistance. Patient has had physical therapy for 3 years and is still in physical therapy at [facility]. Her last session is tomorrow. Her physical [...] High (05/14/23:18:00) Diastolic Blood Pressure: 88 mmHg (05/14/23:18:) Apical Heart Rate: 88 bpm (05/14/2318:00) SpO2: 98 % (05/14/23:18:00) Mean Arterial Pressure: 106 mmHg (05/14/2318:) BP Site2: Left arm (05/14/2318:00) Height/Length Measured: 168 cm (05/14/23:18:00) Weight Measured: 127 kg (05/14/2318:) Body Mass Index Measured: 45 kg/m2 (05/14/2318:) Weight Measured - lbs2: 280 lb (05/14/2318:00) Height/Length Measured - in2: 66 in (05/14/23:18:) Body Mass Index Measured English2: 45.19 kg/m2 (05/14/23:18:00) BSA: 2.43 m2 (05/14/23:18:00) Ht/Wt Measurement Refused by Patient?2: No (05/14/23:18:) Depression Screening Scores Initial Depression Screen Score: 0 (07/11/23 11:18:00) Fall Risk Assessment Is the patient [...] to li (more content not included)... Normal [facility] PT Outpatient Time Spent Wit h Pt-Texton 04-16-2023 PT Outpatient Time Spent With Pt-Text PT Outpatient Time Spent With Patient Entered On: 04/16/2023 17:54 EDT Performed On: 04/16/2023 17:53 EDT by Meredith Menendez PTA Time Spent with Patient - Outpatient PT Time In : 08:00 EST PT Time Out : 08:45 EST PT Therapeutic Exercise Time : 45 minutes FITNESS STUDIES TEACHER Therapeutic Exercise Units : 3 units PT Total Timed Code Treatment Units : 3 units PT Total Timed Code Tx Minutes : 45 minutes 8 Min Rule Unit Check PT OP : 3 units PT Total Treatment Time Rehab : 45 minutes 8 Min Rule Unit Difference PT OP : 0 Meredith Menendez PTA - 04/16/2023 17:53 EDT Normal [facility] PT Outpatient Time Spent Wit h Pt-Texton 03-26-2023 PT Outpatient Time Spent With Pt-Text PT Outpatient Time Spent With Patient Entered On: 03/26/2023 11:30 EDT Performed On: 03/26/2023 11:26 EDT by Meredith Menendez PTA Time Spent with Patient - Outpatient PT Time In : 08:45 EST PT Time Out : 09:30 EST PT Vasopneumatic Devices Time : 15 minutes FITNESS STUDIES TEACHER Vasopneumatic Devices Units : 1 units PT Soft Tissue Mobility Time : 30 minutes FITNESS STUDIES TEACHER Soft Tissue Mobility Units : 2 units [...] Menendez PTA - 03/26/2023 11:26 EDT Normal [facility] Phone Msgon 03-20-2023 Phone Msg - From: Lilia Schneider To: KOREY HUTCHINSON DPM; Sent: 02/25/2023 10:43:13 EDT Caller Name: SERA WOO; Caller Number: H , B [phone] Sera called and is having her EMG done on March 05. She needs a referral to pain management so we can send the note over. Patient has been approved for MRI See [facility] Phone Msg - From: Heather Prajapati [...] they can be faxed to [employer] @ [phone] or to expedite the process, phoned in at [phone] mri case# for insurance is [id number] and should be included Thanks, Genevieve Omalley auth rep [id number] Malinda Connolly speaking to [employer] for further needs regarding authorization [facility] Phone Msg - From: Emy Davis To: KOREY HUTCHINSON DPM; Sent: 03/07/2023 09:54:43 EDT Subject: MRI Caller Name: SERA WOO; Caller Number: H , B [phone] Sera called to ask for your help [...] and won't get this message until Saturday. [phone] Malinda Connolly is speaking to [employer] in regards to further action needed [facility] PT Outpatient Time Spent Wit h Pt-Texton 03-14-2023 PT Outpatient Time Spent With Pt-Text PT Outpatient Time Spent With Patient Entered On: 03/14/2023 10:28 EDT Performed On: 03/12/2023 9:30 EDT by Meredith Menendez PTA Time Spent with Patient - Outpatient PT Time In : 08:45 EST PT Time Out : 09:30 EST PT Therapeutic Exercise Time : 45 minutes FITNESS STUDIES TEACHER Therapeutic Exercise Units : 3 units PT Total Timed Code Treatment Units : 3 units PT Total Timed Code Tx Minutes : 45 minutes 8 Min Rule Unit Check PT OP : 3 units PT Total Treatment Time Rehab : 45 minutes 8 Min Rule Unit Difference PT OP : 0 Meredith Menednez PTA - 03/14/2023 10:28 EDT Normal [facility] PT Outpatient Time Spent Wit h Pt-Texton 03-05-2023 PT Outpatient Time Spent With Pt-Text PT Outpatient Time Spent With Patient Entered On: 03/05/2023 14:10 EDT Performed On: 03/05/2023 14:09 EDT by Meredith Menendez PTA Time Spent with Patient - Outpatient PT Time In : 11:45 EST PT Time Out : 12:30 EST PT Therapeutic Exercise Time : 45 minutes FITNESS STUDIES TEACHER Therapeutic Exercise Units : 3 units PT Total Timed Code Treatment Units : 3 units PT Total Timed Code Tx Minutes : 45 minutes 8 Min Rule Unit Check PT OP : 3 units PT Total Treatment Time Rehab : 45 minutes 8 Min Rule Unit Difference PT OP : 0 Meredith Menendez PTA - 03/05/2023 14:09 EDT Normal [facility] PT Outpatient Time Spent Wit h Pt-Texton 02-21-2023 PT Outpatient Time Spent With Pt-Text PT Outpatient Time Spent With Patient Entered On: 02/21/2023 18:13 EDT Performed On: 02/21/2023 18:12 EDT by Meredith Menendez PTA Time Spent with Patient - Outpatient PT Time In : 10:15 EST PT Time Out : 11:00 EST PT Gait Training Time : 45 minutes FITNESS STUDIES TEACHER Gait Training Units : 3 units PT Total Timed Code Treatment Units : 3 units PT Total Timed Code Tx Minutes : 45 minutes 8 Min Rule Unit Check PT OP : 3 units PT Total Treatment Time Rehab : 45 minutes 8 Min Rule Unit Difference PT OP : 0 Meredith Menendez PTA - 02/21/2023 18:12 EDT Normal [facility] PT Outpatient Time Spent Wit h Pt-Texton 02-18-2023 PT Outpatient Time Spent With Pt-Text PT Outpatient Time Spent With Patient Entered On: 02/18/2023 18:12 EDT Performed On: 02/18/2023 18:11 EDT by Meredith Menendez PTA Time Spent with Patient - Outpatient PT Time In : 16:30 EST PT Time Out : 17:15 EST PT Therapeutic Exercise Time : 45 minutes FITNESS STUDIES TEACHER Therapeutic Exercise Units : 3 units PT Total Timed Code Treatment Units : 3 units PT Total Timed Code Tx Minutes : 45 minutes 8 Min Rule Unit Check PT OP : 3 units PT Total Treatment Time Rehab : 45 minutes 8 Min Rule Unit Difference PT OP : 0 Meredith Menendez PTA - 02/18/2023 18:11 EDT Normal [facility] PT Outpatient Time Spent Wit h Pt-Texton 02-11-2023 PT Outpatient Time Spent With Pt-Text PT Outpatient Time Spent With Patient Entered On: 02/11/2023 19:12 EDT Performed On: 02/11/2023 19:09 EDT by Meredith Menendez PTA Time Spent with Patient - Outpatient PT Time In : 17:45 EST PT Time Out : 18:40 EST PT Vasopneumatic Devices Time : 15 minutes FITNESS STUDIES TEACHER Vasopneumatic Devices Units : 1 units PT Therapeutic Exercise Time : 15 minutes FITNESS STUDIES TEACHER Therapeutic Exercise Units : 1 units PT Soft Tissue Mobility Time : 25 minutes FITNESS STUDIES TEACHER Soft Tissue Mobility Units : 2 units [...] after 6pm Qty - PT : 3 Shon FITNESS STUDIES TEACHERMeredith - 02/11/2023 19:09 EDT Normal [facility] AMB PODIATRY Physician Progr ess [...] to the anterior medial distal tibia Normal [facility] AMB PODIATRY Physician Progress Note [...] Est Pt Mod MDM / 30-39 min 50852, 57 Decision for surgery 01/08/2023 10:01:00 EST, Osteochondral defect of distal tibia / Avascular necrosis of the talus / Right ankle pain / Acute lumbar radiculopathy 2. Avascular necrosis of the talus M87.076 Ordered: AMB Office/Outpt Est Pt Mod MDM / 30-39 min 69911, 57 Decision for surgery 01/08/2023 10:01:00 EST, Osteochondral defect of distal tibia / Avascular necrosis of the talus / Right ankle pain / Acute lumbar radiculopathy 3. Right ankle pain M25.571 Ordered: AMB Office/Outpt Est Pt Mod MDM / 30-39 min 09181, 57 Decision for surgery 01/08/2023 10:01:00 EST, Osteochondral defect of distal tibia / Avascular necrosis of the talus / Right ankle pain / Acute lumbar radiculopathy 4. Acute lumbar radiculopathy M54.16 Ordered: AMB Office/Outpt Est Pt Mod MDM / 30-39 min 84938, 57 Decision for surgery 01/08/2023 10:01:00 EST, [...] for revisional (more content not included)... Normal [facility] HEP B SURFACE ANTIGEN SCREEN on 01-11-2023 HBsAg Screen Negative Normal Negative [facility] Comment on above: Performed By: #### H BSA ####[facility] [address] [place], [place] [address] Raimundo Girma HEPATITIS C ANTIBODYon 01-11 Hep C Virus Ab Non-Reactive Normal Non Reactive [facility] Comment on above: Result Comment: HCV antibody alone does not differentiate between previously resolved infection and active infection. Equivocal and Reactive HCV antibody results should be followed up with an HCV RNA test to support the diagnosis of active HCV infection. Performed By: #### H CV #### [facility] [address] [place] [address] Dr. Raimundo Rayo HIV 1 AND 2 WITH REFLEXon HIV Screen 4th Generation wRfx Non-Reactive Normal Non Reactive [facility] Comment on above: Result Comment: HIV Negative HIV-1/HIV-2 antibodies and HIV-1 p24 antigen were NOT detected. There is no laboratory evidence of HIV infection. Performed By: #### H IV12 #### [facility] [address] [place] [address] Dr. Raimundo Rayo RPR QUANTon 01-11-2023 Rapid Plasma Reagin, Quant Non-Reactive Normal NonRea<1:1 [facility] Comment on above: Result Comment: Plea se Note: This test does not meet current guidelines for screening and diagnosis of syphilis. This test is intended for following treatment response in patients being treated for syphilis infection. To screen for syphilis infection, a reflex cascade that includes both RPR and a treponema-specific assay should be utilized, such as Treponema pallidum (Syphilis) Screening [place] (663106) or Rapid Plasma Reagin (RPR) Test With Reflex to Quantitative RPR and Confirmatory Treponema pallidum Antibodies (253272). Performed By: #### R PRQ #### [facility] [address] [place] [address] Dr. Raimundo Rayo HIV 1/2 RAPID (EXPOSURE ONLY )on 01-10-2023 HIV AB Non-Reactive Normal NON-REACTIVE [facility] Comment on above: Performed By: #### R PDHIV #### [facility] [address] [place] [address] Dr. Raimundo Rayo HIV AG Non-Reactive Normal NON-REACTIVE [facility] Comment on above: Performed By: #### R PDHIV #### [facility] [address] [place] [address] Dr. Raimundo Rayo INTERNAL CONTROLS Within Normal Limits Normal Wi thin Normal Limits [facility] Comment on above: Performed By: #### R PDHIV #### [facility] [address] [address] [address] Raimundo Rayo RAPID HIV INFO SEE BELOW Normal [facility] Comment on above: Result Comment: This test is used for the initial screening of the exposure source. Confirmation of all reactive results will be obtained through reference lab testing. Performed By: #### R PDHIV #### [facility] [address] [address] [address] Raimundo Rayo POINT OF CARE GLUCOSEon 03-0 Glucose [Mass/Vol] 86 mg/dL Normal 74-106 [facility] Comment on above: Performed By: #### P OCGLUC #### [facility] [address] [address] [address] Raimundo Rayo Glucose [Mass/Vol] 79 mg/dL Normal 74-106 [facility] Comment on above: Performed By: #### P OCGLUC ####[facility] [address] [address]Dr. Raimundo Rayo PREG HCG QUALon 01-10-2023 , QUAL Negative Normal NEGATIVE [facility] Comment on above: Performed By: #### P REG #### [facility] [address] [place] [address] Dr. Raimundo Rayo XR ANKLE RT MIN [...] CALEB KERN Date: 2023-01-10 16:24 Normal [facility] XR FOOT RT 2Von 01-10-2023 XR FOOT RT 2V EXAM: XR FOOT RT 2V. HISTORY: Pain. COMPARISON: 11/14/2022. TECHNIQUE: Intraoperative fluoroscopic view of the right ankle was obtained. Total fluoroscopy time: 32.1 seconds. FINDINGS/IMPRESSION: Intraoperative fluoroscopic utilization for right ankle surgery. Please refer to the operative report for detailed discussion. Electronically authenticated by: CALEB KERN Date: 2023-01-10 17:11 Normal [facility] Ambulatory Clinical Summaryo n 01-08-2023 Ambulatory [...] call to get immediate medical attention! Normal [facility] Comprehensive Intake - Texto n [...] risk situation (congregated living, hemodialysis, infusion clinic, penitentiary, assisted living, residential, homeless group home, etc.)? : No Katiana Case MA - 01/08/2023 9:38 EST Depression Screening Is patient currently : None of the Below Feeling Down, Depressed, Hopeless : Not at all Little Interest - Pleasure in Activities : Not at all Initial Depression Screen Score : 0 Depression Screening Score 0 : No Katiana Case MA - 01/08/2023 9:38 EST Falls Risk Assessment [...] injury in last year Katiana Case MA - 01/08/2023 9:38 EST Normal [facility] CBC AUTO DIFFon 01-07-2023 BASO # 0.0 103/ul Normal 0.0-0.1 [facility] Comment on above: Performed By: #### C BC #### [facility] [address] [address] [address] Raimundo Rayo Basophils/100 WBC (Bld) 0.6 % Normal 0.2-2.0 [facility] Comment on above: Performed By: #### C BC #### [facility] [address] [place] [address] Dr. Raimundo Rayo EO # 0.1 103/ul Normal 0.0-0.7 [facility] Comment on above: Performed By: #### C BC #### [facility] [address] [place] [address] Dr. Raimundo Rayo Eosinophils/100 WBC (Bld) 1.1 % Normal 0.9-7.0 [facility] Comment on above: Performed By: #### C BC #### [facility] [address] [place] [address] Dr. Raimundo Rayo Erythrocyte distribution width (RBC) [Ratio] 13.6 % Normal 11.0-15.0 [facility] Comment on above: Performed By: #### C BC #### [facility] [address] [place] [address] Dr. Raimundo Rayo Hematocrit (Bld) [Volume fraction] 40.0 % Normal 36.0-48.0 [facility] Comment on above: Performed By: #### C BC #### [facility] [address] [place] [address] Dr. Raimundo Rayo Hemoglobin (Bld) [Mass/Vol] 13.0 g/dL Normal 12.0-16.0 [facility] Comment on above: Performed By: #### C BC #### [facility] [address] [place] [address] Dr. Raimundo Rayo IG # 0.03 10e3/ul Normal 0.00-0.03 [facility] Comment on above: Performed By: #### C BC #### [facility] [address] [place] [address] Dr. Raimundo Rayo IG % 0.4 % Normal 0.0-0.5 [facility] Comment on above: Performed By: #### C BC #### [facility] [address] [place] [address] Dr. Raimundo Ryao LYMPH # 1.7 103/ul Normal 1.2-3.8 [facility] Comment on above: Performed By: #### C BC #### [facility] [address] [place] [address] Dr. Raimundo Rayo Lymphocytes/100 WBC (Bld) 23.8 % Normal 20.5-60.0 [facility] Comment on above: Performed By: #### C BC #### [facility] [address] [place] [address] Dr. Raimundo Rayo MANUAL DIFF REQ NO Normal [facility] Comment on above: Performed By: #### C BC #### [facility] [address] [place] [address] Dr. Raimundo Rayo MCH (RBC) [Entitic mass] 28.4 pg Normal 26.7-34.0 [facility] Comment on above: Performed By: #### C BC #### [facility] [address] [place] [address] Dr. Raimundo Rayo MCHC (RBC) [Mass/Vol] 32.5 g/dL Normal 29.9-35.2 [facility] Comment on above: Performed By: #### C BC #### [facility] [address] [place] [address] Dr. Raimundo Rayo MCV (RBC) [Entitic vol] 87.5 fL Normal 81.0-99.0 [facility] Comment on above: Performed By: #### C BC #### [facility] [address] [place] [address] Dr. Raimundo Rayo MONO # 0.6 103/ul Normal 0.3-0.8 [facility] Comment on above: Performed By: #### C BC #### [facility] [address] [place] [address] Dr. Raimundo Rayo Monocytes/100 WBC (Bld) 8.0 % Normal 1.7-12.0 [facility] Comment on above: Performed By: #### C BC #### [facility] [address] [place] [address] Dr. Raimundo Rayo NEUT # 4.8 103/ul Normal 1.4-6.5 [facility] Comment on above: Performed By: #### C BC #### [facility] [address] [place] [address] Dr. Raimundo Rayo Neutrophils/100 WBC (Bld) 66.1 % Normal 43.0-75.0 [facility] Comment on above: Performed By: #### C BC #### [facility] [address] [address] [address] Raimundo Rayo Platelet mean volume (Bld) [Entitic vol] 8.5 fL Critically low 9.5-13.5 [facility] Comment on above: Performed By: #### C BC #### [facility] [address] [place] [address] Dr. Raimundo Rayo PLT 336 103/ul Normal 150-450 [facility] Comment on above: Performed By: #### C BC #### [facility] [address] [place] [address] Dr. Raimundo Rayo RBC 4.57 106/ul Normal 4.20-5.40 [facility] Comment on above: Performed By: #### C BC #### [facility] [address] [place] [address] Dr. Raimundo Rayo WBC 7.2 103/ul Normal 4.0-11.0 [facility] Comment on above: Performed By: #### C BC #### [facility] [address] [place] [address] Dr. Raimundo Rayo PROF CHEM 8 (BAS METB)on Anion gap [Moles/Vol] 11.3 mmol/L Normal [facility] Comment on above: Performed By: #### B MP ####[facility] [address] [place] [address]Dr. Raimundo Rayo Calcium [Mass/Vol] 9.1 mg/dL Normal 8.5-10.1 [facility] Comment on above: Performed By: #### B MP ####[facility] [address] [place] [address]Dr. Raimundo Rayo Chloride [Moles/Vol] 105 mmol/L Normal 98-107 [facility] Comment on above: Performed By: #### B MP ####[facility] [address] [place] [address]Dr. Raimundo Rayo CO2 [Moles/Vol] 27.0 mmol/L Normal 21.0-32.0 [facility] Comment on above: Performed By: #### B MP ####[facility] [address] [place] [address]Dr. Raimundo Rayo Creatinine [Mass/Vol] 0.53 mg/dL Critically low 0.55-1.02 [facility] Comment on above: Performed By: #### B MP ####[facility] [address] [place] [address]Dr. Raimundo Rayo EGFR-AF COOK ISLANDER >60 Normal >=60 [facility] Comment on above: Performed By: #### B MP ####[facility] [address] [place], [place] [address]Dr. Raimundo Rayo EGFR-NON AF [place] ISLANDER >60 Normal >=60 [facility] Comment on above: Performed By: #### B MP ####[facility] [address] [place], [place] [address]Dr. Raimundo Rayo Glucose [Mass/Vol] 104 mg/dL Normal 74-106 [facility] Comment on above: Performed By: #### B MP ####[facility] [address] [place], [place] [address]Dr. Raimundo Girma Potassium [Moles/Vol] 4.3 mmol/L Normal 3.5-5.1 [facility] Comment on above: Performed By: #### B MP ####[facility] [address] [place], [place] [address]Dr. Raimundo Girma Sodium [Moles/Vol] 139 mmol/L Normal 136-145 [facility] Comment on above: Performed By: #### B MP ####[facility] [address] [place], [place] [address]Dr. Raimundo Rayo Urea nitrogen [Mass/Vol] 10.0 mg/dL Normal 7.0-18.0 [facility] Comment on above: Performed By: #### B MP ####[facility] [address] [place], [place] [address]Dr. Raimundo Girma Urea nitrogen/Creatini ne [Mass ratio] 18.9 mg/mg Normal [facility] Comment on above: Performed By: #### B MP ####[facility] [address] [place], [place] [address]DtCortes Rayo PT Outpatient Time Spent Wit h [...] PT Therapeutic Exercise Time : 45 minutes FITNESS STUDIES TEACHER Therapeutic Exercise Units : 3 units PT Total Timed Code Treatment Units : 3 units PT Total Timed Code Tx Minutes : 45 minutes 8 Min Rule Unit Check PT OP : 3 units PT Total Treatment Time Rehab : 45 minutes Ronald MS CCC/BAG CHECKER, Carolyn - 12/31/2022 10:23 EST 8 Min Rule Unit Difference PT OP : 0 Meredith Menendez PTA - 12/21/2022 9:14 EST Normal [facility] AMB PODIATRY Physician Progr ess [...] mmHg (12/19/22:50:00) Mean Arterial Pressure: 91 mmHg (12/19/22:50:00) Height/Length Measured: 165 cm (12/19/22:50:00) Weight Measured: 119 kg (12/19/22:50:00) Body Mass Index Measured: 43.71 kg/m2 (12/19/22:50:00) Weight Measured - lbs2: 262 lb (12/19/22:50:00) Height/Length Measured - in2: 65 in (12/19/22:50:00) Body Mass Index Measured English2: 43.59 kg/m2 (12/19/22:50:00) BSA: 2.33 m2 (12/19/22:50:00) Ht/Wt Measurement Refused by Patient?2: No (12/19/22:50:00) Depression Screening Scores Initial Depression Screen Score: 0 (12/19/22 13:50:00) Fall Risk Assessment Is the patient ambulatory (mobile): Yes (12/19/22:50:00) Have you had a fall within the [...] Est Pt Mod MDM / 30-39 min 44841, 12/19/2022 08:19:00 EST, Osteochondral defect of distal tibia / Avascular necrosis of the talus / Right ankle pain / Acute lumbar radiculopathy 2. Avascular necrosis of the talus M87.076 Ordered: AMB Office/Outpt Est Pt Mod MDM / 30-39 min 06742, 12/19/2022 08:19:00 EST, Osteochondral defect of distal tibia / Avascular necrosis of the talus / Right ankle pain / Acute lumbar radiculopathy 3. Right ankle pain M25.571 Ordered: AMB Office/Outpt Est Pt Mod MDM / 30-39 min 62193, 12/19/2022 08:19:00 EST, Osteochondral defect of distal tibia / Avascular necrosis of the talus / Right ankle pain / Acute lumbar radiculopathy 4. Acute lumbar radiculopathy M54.16 Ordered: AMB Office/Outpt Est Pt Mod MDM / 30-39 min 79660, 12/19/2022 08:19:00 EST, Osteochondral defect of distal [...] anxiety an (more content not included)... Normal [facility] Ambulatory Clinical Summaryo n 12-19-2022 [...] for visit Day With Date Time Where [facility]&State PMR Ortho F/U - (45) Saturday Meredith D (FITNESS STUDIES TEACHER) (1) December 21, 2022 08:00 am EDT LW PT [address] [facility] [address] PMR Ortho F/U - (45) Saturday Meredith D (FITNESS STUDIES TEACHER) (1) December 25, 2022 08:45 am EDT LW PT [address] [facility] [address] PMR Ortho F/U - (45) Saturday Mirza D (PT) (2) December 28, 2022 09:00 am EDT LW PT [address] [facility] [address] PMR Ortho F/U - (45) Saturday Meredith D (FITNESS STUDIES TEACHER) (1) January 01, 2023 09:00 am EDT LW PT [address] [facility] [address] PMR Ortho F/U - (45) Saturday Mirza D (PT) (2) January 04, 2023 09:00 am EDT LW PT [address] [address] PMR Ortho F/U - (45) Saturday Mirza D (PT) (2) January 09, 2023 09:00 am EDT LW PT [address] [facility] [address] Medications What How Much When Why Instructions [...] of these heart attack warning signs, call 9-1-1 to get immediate medical attention! Normal [facility] Comprehensive Intake - Texto n [...] in, 165 cm) Body Mass Index Measured Guamanian : 43.59 kg/m2 BSA Guamanian : 2.33 m2 Anastacia Lowe LPN - [...] risk situation (congregated living, hemodialysis, infusion clinic, penitentiary, assisted living, residential, homeless group home, etc.)? : No Anastacia Lowe LPN [...] Lowe LPN - 12/19/2022 13:50 EST Normal [facility] PT Outpatient Time Spent Wit h Pt-Texton 12-07-2022 PT Outpatient Time Spent With Pt-Text PT Outpatient Time Spent With Patient Entered On: 12/07/2022 14:35 EST Performed On: 12/07/2022 14:33 EST by Meredith Menendez PTA Time Spent with Patient - Outpatient PT Time In : 13:30 EST PT Time Out : 14:15 EST PT Therapeutic Exercise Time : 45 minutes FITNESS STUDIES TEACHER Therapeutic Exercise Units : 3 units PT [...] Menendez PTA - 12/07/2022 14:33 EST Normal [facility] PT Outpatient Time Spent Wit h Pt-Texton 11-30-2022 PT Outpatient Time Spent With Pt-Text PT Outpatient Time Spent With Patient Entered On: 11/30/2022 17:35 EST Performed On: 11/30/2022 17:34 EST by Meredith Menendez PTA Time Spent with Patient - Outpatient PT Time In : 16:45 EST PT Time Out : 17:30 EST PT Therapeutic Exercise Time : 35 minutes FITNESS STUDIES TEACHER Therapeutic Exercise Units : 2 units PT Soft Tissue Mobility Time : 10 minutes FITNESS STUDIES TEACHER Soft Tissue Mobility Units : 1 units PT Total Timed Code Treatment Units : 3 units PT Total Timed Code Tx Minutes : 45 minutes 8 Min Rule Unit Check PT OP : 3 units PT Total Treatment Time Rehab : 45 minutes 8 Min Rule Unit Difference PT OP : 0 Meredith Menendez PTA - 11/30/2022 17:34 EST Normal [facility] PT Outpatient Time Spent Wit h Pt-Texton 11-27-2022 PT Outpatient Time Spent With Pt-Text PT Outpatient Time Spent With Patient Entered On: 11/27/2022 13:16 EST Performed On: 11/23/2022 9:30 EST by Meredith Menendez PTA Time Spent with Patient - Outpatient PT Time In : 09:30 EST PT Time Out : 10:15 EST PT Therapeutic Exercise Time : 45 minutes FITNESS STUDIES TEACHER Therapeutic Exercise Units : 3 units PT Total Timed Code Treatment Units : 3 units PT Total Timed Code Tx Minutes : 45 minutes 8 Min Rule Unit Check PT OP : 3 units PT Total Treatment Time Rehab : 45 minutes 8 Min Rule Unit Difference PT OP : 0 Meredith Menendez PTA - 11/27/2022 13:15 EST Normal [facility] CT ANKLE RT WO CONon [...] by: WELLINGTON NIX Date: 2022-11-21 16:19 Normal [facility] PT Outpatient Time Spent Wit h Pt-Texton 11-09-2022 PT Outpatient Time Spent With Pt-Text PT Outpatient Time Spent With Patient Entered On: 11/09/2022 17:32 EST Performed On: 11/09/2022 10:30 EST by Meredith Menendez PTA Time Spent with Patient - Outpatient PT Time In : 09:45 EST PT Time Out : 10:30 EST PT Therapeutic Exercise Time : 15 minutes FITNESS STUDIES TEACHER Therapeutic Exercise Units : 1 units PT Soft Tissue Mobility Time : 22 minutes FITNESS STUDIES TEACHER Soft Tissue Mobility Units : 1 units PT Iontophoresis Time : 8 minutes FITNESS STUDIES TEACHER Iontophoresis Units : 1 units PT Total Timed Code Treatment Units : 3 units PT Total Timed Code Tx Minutes : 45 minutes 8 Min Rule Unit Check PT OP : 3 units PT Total Treatment Time Rehab : 45 minutes 8 Min Rule Unit Difference PT OP : 0 Meredith Menendez PTA - 11/09/2022 17:29 EST Normal [facility] PT Outpatient Historical [place] a - Texton 2022 PT Outpatient Historical Data - Text PT Outpatient Historical Data Entered On: 2022 10:15 EST Performed On: 2022 10:15 EST by Meredith Menendez PTA PT Outpatient Historical Data Jail Goals : Yes Plan : Yes Manual [...] Meredith Menendez PTA - 2022 10:15 EST Jail Goals - Historical PT Outpt Pt Goal [...] - 2022 10:15 EST Meredith Menendez PTA 2022 10:15 EST Shon PALACIO, Meredith 2022 [...] Shon PALACIO, Meredith 2022 10:15 EST Shon FITNESS STUDIES TEACHER, Meredith 2022 10:15 EST Shon FITNESS STUDIES TEACHER, Meredith 2022 10:15 EST Shon PALACIO, Meredith [...] shorter stride to normalize patter. Shon PALACIO, Merdeith 2022 10:15 EST Shon FITNESS STUDIES TEACHER, Meredith 2022 10:15 EST Shon FITNESS STUDIES TEACHER, Meredith 2022 10:15 EST Shon FITNESS STUDIES TEACHER, Meredith 2022 10:15 EST Exercise 9 Exercise 10 Exercise 11 Exercise 12 Exercise : Forward step downs Half dome PF/DF, INV/EV, CW/CCW Bilateral FWD stretch LAQ/ HS curls Repetition/Time : Resist or Assist : 2.5#/green Not Performed : X Comment : 2 then 4 tibial FWD translation Shon FITNESS STUDIES TEACHER, Meredith - 2022 10:15 EST Shon FITNESS STUDIES TEACHER, Meredith - 2022 10:15 EST Shon FITNESS STUDIES TEACHER, Meredith - 2022 10:15 EST Shon FITNESS STUDIES TEACHER, Meredith - 2022 10:15 EST Exercise 14 Exercise 15 Exercise 16 Exercise 17 Exercise : Upright bike True [place] Strap Calf Stretch KE and KF Half dome PWB alphabet Repetition/Time : 30x3 Resist or Assist : 3 115# Not Performed : X X Comment : Shon FITNESS STUDIES TEACHER, Meredith - 2022 10:15 EST Shon FITNESS STUDIES TEACHER, Meredith - 2022 10:15 EST Shon FITNESS STUDIES TEACHER, Meredith - 2022 10:15 EST Shon FITNESS STUDIES TEACHER, Meredith - 2022 10:15 EST Exercise 18 Exercise 20 Exercise 22 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, 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 NEW: 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 posterior tib; athletic tape to foot to relieve PF and to soleus Gait trianing with B walking sticks Repetition/Time : done Resist or Assist : Not Performed : Comment : Shon FITNESS STUDIES TEACHER, Meredith - 2022 10:15 EST Shon FITNESS STUDIES TEACHER, Meredith - 2022 10:15 EST Shon FITNESS STUDIES TEACHER, Meredith - 2022 10:15 EST Normal [facility] PT Outpatient Time Spent Wit h Pt-Texton 2022 PT Outpatient Time Spent With Pt-Text PT Outpatient Time Spent With Patient Entered On: 2022 10:59 EST Performed On: 2022 10:59 EST by Meredith Menendez PTA Time Spent with Patient - Outpatient PT Time In : 10:15 EST PT Time Out : 11:00 EST PT Therapeutic Exercise Time : 45 minutes FITNESS STUDIES TEACHER Therapeutic Exercise Units : 3 units PT [...] Menendez PTA - 2022 10:59 EST Normal [facility] Office Visit (Family Gallito cordova)on [...] Medication NameInstr (more content not included)... [facility] (Family Medicin e)on 08-20-2022 Follow-up [...] By signing my name below, I, Cynthia Shaunna Lofton, attest that this documentation has been prepared under the direction and in the presence of Dr. Hetal Alonso. Cynthia Rolly 08/20/22 Chief Complaint 1 month follow up. [...] Evaluate AND Treat Status: Active Requested for: [id number] AMA Intake Activity Log Entry by kyle montes ([email or web address]) on 2022-07-24 10:13 Status Change: To Closed - Unable To Schedule-Patient Will Schedule With Replaced by [facility], per patient her doctor wants her to [...] w/ Tomosynthesis; Status:Hold For - Scheduling; Requested for:[id number]; Radiologist to Determine Optimal Study : Y [...] booster. Patient would like a referral to ob-planning coordinator. Patient reports she has lost weight 55 [...] Respiratory: no (more content not included)... Normal [facility] CORONAVIRUS 2019, SCREEN ASY MPTOMATICon 01-23-2022 SARS-CoV-2 (COVID-19) RNA MEKA+probe Ql (Unsp spec) Not detected Normal Not Detected [facility] Comment on above: Result Comment: . [...] patient management decisions. Fact sheet for providers: https://www.fda.gov/media/679979/download Fact sheet for patients: https://www.fda.gov/media/554630/download This test has received FDA Emergency Use Authorization (EUA) and has been verified by [facility] ([facility]). This test is only authorized for the duration of time that circumstances exist to justify the authorization of the emergency use of in vitro diagnostic tests for the detection of SARS-CoV-2 virus and/or diagnosis of COVID-19 infection under section 564(b)(1) of the Act, 21 U.S.C. 360bbb-3(b)(1), unless the authorization is terminated or revoked sooner. [facility] is certified under CLIA-88 as qualified to perform high complexity testing. Testing is performed in the [facility] laboratories located at [id number] [place] [address]. Performed By: #### C OVSC #### [address] [place] [address] Covid 19 Resultson 2 SARS-CoV-2 (COVID-19) RNA [...] You may also be contacted by the [facility] to see if any of your [...] or Naproxen (Aleve) can also be used. Tzbd-roy-ymexxry cough and cold medicines can be used according to the instructions on the package. Some yqvy-egp-dzubdsw medicines also contain acetaminophen. Make sure you [...] water are not available, use alcohol-based hand magazine repairer. Avoid touching your eyes, nose, and mouth [...] 24 stanley (more content not included)... Normal [facility] CORONAVIRUS 2019, SCREEN ASY MPTOMATICon 01-22-2022 Lab Specimen Source Nasal, Nasopharyngeal Normal [facility] Comment on above: Performed By: #### C OVSC #### [facility] [address] [place] [address] Coronavirus 2019 RNA by PCR, Screening Asymptomticon 01-22-2022 Coronavirus 2019 RNA by PCR, Screening Asymptomtic Not detected Normal See Below AK-Gbsjckl-[address] DO Work Phone: Comment on above: [...] make patient management decisions.Fact sheet for providers: https://www.fda.gov/media/372111/downloadFact sheet for patients: https://www.fda.gov/media/807482/downloadThis test has received FDA Emergency Use Authorization (EUA) and has been verified by [facility] ([facility]). This test is only authorized for the duration of time that circumstances exist to justify the authorization of the emergency use of in vitro diagnostic tests for the detection of SARS-CoV-2 virus and/or diagnosis of COVID-19 infection under section 564(b)(1) of the Act, 21 U.S.C. 360bbb-3(b)(1), unless the authorization is terminated or revoked sooner. [facility] is certified under CLIA-88 as qualified to perform high complexity testing. Testing is performed in the [facility] laboratories located at [address] [place] [address]. ABDOMEN AP VIEWon 01-19-2022 ABDOMEN AP VIEW Patient Name: SERA WOO STUDY: ABDOMEN AP VIEW INDICATION: kidney stones N20.0: Kidney stones. COMPARISON: January 19 ACCESSION NUMBER(S): [id number] ORDERING CLINICIAN: ABI KARIMI FINDINGS: Postsurgical changes right upper quadrant. Bowel gas pattern unremarkable. No pathologic calcifications noted. IMPRESSION: Grossly unremarkable radiographs of the abdomen. Electronically signed by: FRANCIA HINKLE MD Normal [facility] [place]IC METABOLIC PANELon 01-02 Anion gap [Moles/Vol] 12 mmol/L Normal 10 - 20 [facility] Comment on above: Performed By: #### B MP #### [address] [address] Calcium [Mass/Vol] 9.3 mg/dL Normal 8.6 - 10.3 [facility] Comment on above: Performed By: #### B MP #### [address] [address] Chloride [Moles/Vol] 104 mmol/L Normal 98 - 107 [facility] Comment on above: Performed By: #### B MP #### [address] [address] Creatinine [Mass/Vol] 0.61 mg/dL Normal 0.50 - 1.05 [facility] Comment on above: Performed By: #### B MP #### [address] [address] eGFR FEMALE >90 Normal >90 [facility] Comment on above: Result Comment: CALC ULATIONS OF ESTIMATED GFR ARE PERFORMED USING THE 2020 CKD-EPI STUDY REFIT EQUATION WITHOUT THE RACE VARIABLE FOR THE IDMS-TRACEABLE CREATININE METHODS. https://jasn.asnjournals.org/content/early//ASN.3466845493 Performed By: #### B MP #### [address] [address] Glucose [Mass/Vol] 96 mg/dL Normal 74 - 99 [facility] Comment on above: Performed By: #### B MP #### [address] [address] HCO3 (Bld) [Moles/Vol] 24 mmol/L Normal 21 - 32 [facility] Comment on above: Performed By: #### B MP #### [address] [address] Potassium [Moles/Vol] 4.2 mmol/L Normal 3.5 - 5.3 [facility] Comment on above: Performed By: #### B MP #### [address] [address] Sodium [Moles/Vol] 136 mmol/L Normal 136 - 145 [facility] Comment on above: Performed By: #### B MP #### [address] [address] Urea nitrogen [Mass/Vol] 11 mg/dL Normal 6 - 23 [facility] Comment on above: Performed By: #### B MP #### [address] [address] CBCon 01-19-2022 Erythrocyte distribution width (RBC) [Ratio] 14.5 % Normal 11.5 - 14.5 [facility] Comment on above: Performed By: #### C BC #### [address] [address] Hematocrit (Bld) [Volume fraction] 43.9 % Normal 36.0 - 46.0 [facility] Comment on above: Performed By: #### C BC #### [address] [address] Hemoglobin (Bld) [Mass/Vol] 13.8 g/dL Normal 12.0 - 16.0 [facility] Comment on above: Performed By: #### C BC #### [address] [address] MCHC (RBC) [Mass/Vol] 31.4 g/dL Low 32.0 - 36.0 [facility] Comment on above: Performed By: #### C BC #### [address] [address] MCV (RBC) [Entitic vol] 88 fL Normal 80 - 100 [facility] Comment on above: Performed By: #### C BC #### [address] [address] NUCLEATED RBC 0.0 /100 WBC Normal 0.0 - 0.0 [facility] Comment on above: Performed By: #### C BC #### [address] [address] Platelets (Bld) [#/Vol] 348 10*3/uL Normal 150 - 450 [facility] Comment on above: Performed By: #### C BC #### [address] [address] RBC 5.00 x10E12/L Normal 4.00 - 5.20 [facility] Comment on above: Performed By: #### C BC #### [address] [address] WBC (Bld) [#/Vol] 7.6 10*3/uL Normal 4.4 - 11.3 [facility] Comment on above: Performed By: #### C BC #### [address] [address] COAGULATION SCREENon 022 aPTT Coag (Bld) [Time] 31 s Normal 26 - 39 [facility] Comment on above: Result Comment: Note new reference range as of 10/03/2021 at 10:00am. Performed By: #### C OAGS #### [address] [place] [address] PT Coag (PPP) [Time] 11.2 s Normal 9.8 - 13.4 [facility] Comment on above: Result Comment: Note new reference range as of 10/03/2021 at 10:00am. Performed By: #### C OAGS #### [address] [place] [address] PT, INR 1.0 Normal 0.9 - 1.1 [facility] Comment on above: Performed By: #### C OAGS #### [address] [place] [address] Cult, Urineon 01-19-2022 Bacteria identified Cx Nom (U) BM-Rbzqhxv-Fd [address] DO Work Phone: Laboratory - Chemistry and C hemistry - challengeon 01-19-2022 Anion gap [Moles/Vol] 12 mmol/L 10 - 20 DW-Pwhvwio-Nv [address] DO Work Phone: Calcium [Mass/Vol] 9.3 mg/dL 8.6 - 10.3 XY-Cmocjeg-Ve [address]lake [address] DO Work Phone: Chloride [Moles/Vol] 104 mmol/L 98 - 107 SS-Jfztbfw-Vr [address]lake [address] DO Work Phone: CO2 [Moles/Vol] 24 mmol/L 21 - 32 MP-Urolog y-We [address] DO Work Phone: Creatinine [Mass/Vol] 0.61 mg/dL See Below YK-Njwuttg-Cm [address]lake [address] DO Work Phone: Comment on above: Reference Range: 0.5 0 - 1.05 Glucose [Mass/Vol] 96 mg/dL 74 - 99 KC-Ceqxkln-Wk [address]lake [address] DO Work Phone: Potassium [Moles/Vol] 4.2 mmol/L 3.5 - 5.3 CA-Tqipoch-Ch [address] DO Work Phone: Sodium [Moles/Vol] 136 mmol/L 136 - 145 VY-Kjfsccm-Qf [address]lake [address] DO Work Phone: Urea nitrogen [Mass/Vol] 11 mg/dL 6 - 23 RY-Fjdawsl-Xn [address]lake [address] DO Work Phone: Laboratory - Coagulationon 0 01-19-2022 aPTT Coag (PPP) [Time] 31 s 26 - 39 MX-Imglmap-Ao stfranko SJW 400 DO Work Phone: Comment on above: Note new reference truong blancas as of 10/03/2021 at 10:00am. INR Coag (PPP) [Relative time] 1.0 {INR} 0.9 - 1.1 PV-Titkmqg-Pf stfranko SJW [address] DO Work Phone: PT Coag (PPP) [Time] 11.2 s 9.8 - 13.4 BJ-Irarvyc-Ps stfranko S[address]W [address] DO Work Phone: Comment on above: Note new reference truong blancas as of 10/03/2021 at 10:00am. Laboratory - Hematology and Cell countson 01-19-2022 Erythrocyte distribution width (RBC) [Ratio] 14.5 % See Below PZ-Ovfzfth-Ki stlake [address] DO Work Phone: Comment on above: Reference Range: 11. 5 - 14.5 Hematocrit (Bld) [Volume fraction] 43.9 % See Below OE-Uaqgkth-Uk stlake S[place] DO Work Phone: Comment on above: Reference Range: 36. 0 - 46.0 Hemoglobin (Bld) [Mass/Vol] 13.8 g/dL See Below RH-Zhzkthy-Lv stfranko MOTLEYW 400 DO Work Phone: Comment on above: Reference Range: 12. 0 - 16.0 MCHC (RBC) [Mass/Vol] 31.4 g/dL below low threshold See Below QI-Fstgeib-Uh stfranko SJW [address] DO Work Phone: Comment on above: Reference Range: 32. 0 - 36.0 MCV (RBC) [Entitic vol] 88 fL 80 - 100 MJ-Ezgyucy-Ng stlake S[address]W [address] DO Work Phone: Platelets (Bld) [#/Vol] 348 10*3/uL 150 - 450 DG-Eemdikp-De stlartaci MOTLEYW 400 DO Work Phone: RBC (Bld) [#/Vol] 5.00 {x10E12/L} See Below MP -Urology-We stfranko MOTLEYW 400 DO Work Phone: Comment on above: Reference Range: 4.0 0 - 5.20 WBC (Bld) [#/Vol] 7.6 10*3/uL 4.4 - 11.3 MP-Uro logy-We rupinder MOTLEY 400 DO Work Phone: No Panel Informationon 01-19 >90 >90 QJ-Zljboqq-Jh rupinder MOTLEY 400 DO Work Phone: Comment on above: CALCULATIONS OF BONNY MATED GFR ARE PERFORMED USING THE 2020 CKD-EPI STUDY REFIT EQUATION WITHOUT THE RACE VARIABLE FOR THE IDMS-TRACEABLE CREATININE METHODS.https://jasn.asnjournals.org/content//ASN.20 41109460 0.0 {/100_WBC} 0.0 - 0.0 MP-Urology -We rupinder MOTLEYW 400 DO Work Phone: Radiologyon 01-19-2022 XR Abdomen AP Normal MP-Urology- We rupinder MOTLEY 400 DO Work Phone: URINE CULTURE,BACTERIALon URINE CULTURE,BACTERIAL PATIENT: SERA WOO LOCATION: [facility]#: [id number] : 76 AGE: SEX: F ORDERED BY: ABI KARIMI SOURCE: URINE COLLECTED: 01/19/22 09:45 ANTIBIOTICS AT JAIRON.: RECEIVED : 01/19/22 18:45 SITE: Unspecified R E S U L T S URINE CULTURE,BACTERIAL FINAL 01/20/22 11:20 MIXED URETHRAL ELIUD. [place] [facility] [place] on above: Performed By: #### U RINC #### [facility] [address] [place] [address] CORONAVIRUS 2019, SCREEN ASY MPTOMATICon 01-15-2022 DATE OF SYMPTOM ONSET [YYYYMMDD]? Canceled Normal [facility] Comment on above: Order Comment: TEST CORONAVIRUS 2018, SCREEN ASYMPTOMATIC WAS CANCELLED, 01/15/2022 11:50 Updated order placed for STAT test. Performed By: #### C OVSC #### [facility] [address] [place] [address] SARS-CoV-2 (COVID-19) RNA MEKA+probe Ql (Unsp spec) Canceled Normal [facility] Comment on above: Order Comment: [...] patient management decisions. Fact sheet for providers: https://www.fda.gov/media/802142/download Fact sheet for patients: https://www.fda.gov/media/693131/download This test has received FDA Emergency Use Authorization (EUA) and has been verified by [facility] ([facility]). This test is only authorized for the duration of time that circumstances exist to justify the authorization of the emergency use of in vitro diagnostic tests for the detection of SARS-CoV-2 virus and/or diagnosis of COVID-19 infection under section 564(b)(1) of the Act, 21 U.S.C. 360bbb-3(b)(1), unless the authorization is terminated or revoked sooner. [facility] is certified under CLIA-88 as qualified to perform high complexity testing. Testing is performed in the [facility] laboratories located at [address] [place] [address]. Performed By: #### C OVSC #### [facility] [address] [facility] [place] [address] DATE OF SYMPTOM ONSET [YYYYMMDD]? Canceled Normal [facility] Comment on above: Order Comment: TEST CORONAVIRUS 2018, SCREEN ASYMPTOMATIC WAS CANCELLED, 01/15/2022 11:49 Updated order placed for STAT test. Performed By: #### C OVSC #### [facility] [address] [facility] [place] [address] SARS-CoV-2 (COVID-19) RNA MEKA+probe Ql (Unsp spec) Canceled Normal [facility] Comment on above: Order Comment: [...] patient management decisions. Fact sheet for providers: https://www.fda.gov/media/988123/download Fact sheet for patients: https://www.fda.gov/media/304249/download This test has received FDA Emergency Use Authorization (EUA) and has been verified by [facility] ([facility]). This test is only authorized for the duration of time that circumstances exist to justify the authorization of the emergency use of in vitro diagnostic tests for the detection of SARS-CoV-2 virus and/or diagnosis of COVID-19 infection under section 564(b)(1) of the Act, 21 U.S.C. 360bbb-3(b)(1), unless the authorization is terminated or revoked sooner. [facility] is certified under CLIA-88 as qualified to perform high complexity testing. Testing is performed in the [facility] laboratories located at [address] [place] [address]. Performed By: #### C OVSC #### [address] [place] [address] Lab Specimen Source Nasal, Nasopharyngeal Normal [facility] Comment on above: Order Comment: TEST CORONAVIRUS 2018, SCREEN ASYMPTOMATIC WAS CANCELLED, 01/15/2022 11:49 Updated order placed for STAT test. Performed By: #### C OVSC #### [address] [place] [address] CORONAVIRUS 2019, SCREEN ASY MPTOMATICon 01-12-2022 Lab Specimen Source Nasal, Nasopharyngeal Normal [facility] Comment on above: Order Comment: TEST CORONAVIRUS 2018, SCREEN ASYMPTOMATIC WAS CANCELLED, 01/15/2022 11:50 Updated order placed for STAT test. Performed By: #### C OVSC #### [place] [address] [facility] [place] [facility] [address] CORONAVIRUS 2019, SCREEN ASY MPTOMATICon 01-08-2022 Lab Specimen Source Nasal, Nasopharyngeal Normal [facility] Comment on above: Order Comment: TEST CORONAVIRUS 2018, SCREEN ASYMPTOMATIC WAS CANCELLED, 01/15/2022 11:50 Updated order placed for STAT test. Performed By: #### C OVSC #### [address] [facility] [place] [facility] [address] Chart Updateon 01-03-2022 Chart Update Chart Update CT images from [facility] received Right upper pole non-obstructing stone. Too small to determine HU Skin to stone distance 13cm. Signatures Electronically signed by : Abi Karimi MD; Jan 03 2022 8:30PM EST (Author) Normal [facility] Office Visit (Urology)on Follow-up visit Diagnoses/Problems Assessed Kidney stones (592.0) (N20.0) Orders Kidney stones Xray Abdomen AP View; Status:Hold For - Scheduling,Retrospective Authorization; Requested for:11Jan2022; Perform:[facility] Radiology Services Imaging; Due:11Apr2022; Last Updated By:Katie Scott; 12/28/2021 3:25:30 PM;Ordered; For:Kidney stones; Ordered By:Abi Karimi; Radiologist to Determine Optimal Study : Y What are the patient's signs and symptoms? : kidney stones Provider Impressions 41-year-old female see me regarding kidney stones Kindly referred by Cathleen Sanz [facility]: Obesity, BMI greater than 50, depression, hypertension Saw Cathleen Sanz 12/18. Right renal colic beginning end of November, subsided to more achy tolerable pain. No longer symptomatic. First stone episode. CTU from [facility] 12/11/2021: Report only available. 5 [...] telehealth visit. kidney stones History of Present Cksgzhq04-fhtf-drm female see me regarding kidney stones Kindly referred by Cathleen Sanz [facility]: Obesity, BMI greater than 50, depression, hypertension Saw Cathleen Sanz 12/18. Right renal colic beginning end of November, subsided to more achy tolerable pain. No longer symptomatic. First stone episode. CTU from [facility] 12/11/2021: Report only available. 5 [...] 12-20-2021 Lab Specimen Source Nasal, Nasopharyngeal Normal [facility] Comment on above: Order Comment: TEST CORONAVIRUS 2019, SCREEN ASYMPTOMATIC WAS CANCELLED, 01/15/2022 11:50 Updated order placed for STAT test. Performed By: #### C OVSC #### [facility] [address] [place] [address] IO UA (automated w/o microsc opy)on 12-18-2021 Protein (U) [Mass/Vol] Negative ZJ-Hyifyha-Dy [place] [address] Work Phone: IO UA (automated w/o microscopy) (+)small - 15 MC-Gkslgcy-Bt [place] [address] Work Phone: IO UA (automated w/o microscopy) Negative SO-Ahtmuaa-Gy [place] [address] Work Phone: IO UA (automated w/o microscopy) Normal (0.2-1.0 mg/dl) MG-Urolog y-We [place] [address] Work Phone: IO UA (automated w/o microscopy) 8.0 1 IE-Osgmkvk-Sy [place] [address] Work Phone: IO UA (automated w/o microscopy) Trace IE-Wstvlnf-Ym [place] [address] Work Phone: IO UA (automated w/o microscopy) 1.025 1 CP-Avlavqm-Is [place] [address] Work Phone: IO UA (automated w/o microscopy) Clear LW-Ozrqiyc-Rz [place] [address] Work Phone: IO UA (automated w/o microscopy) Yellow LS-Mbhaafw-Hn [place] [address] Work Phone: IO Ultrasound, measurement p ost-void resid urine and/or bl cap; no imagon 12-18-2021 IO Ultrasound, measurement post-void resid urine and/or bl cap; no imag 5 mL QQ-Smyoeda-Op [place] [address] Work Phone: Office Visit (Urology)on Follow-up visit Diagnoses/Problems Assessed Kidney stones (592.0) (N20.0) Renal colic (788.0) (N23) Right flank pain (789.09) (R10.9) Orders Hematuria IO Ultrasound, measurement post-void resid urine and/or bl cap; no imag; Status:Complete; Done: [id number] 08:17AM Performed:In Office; Due:18Mar2022;Ordered; For:Hematuria; Ordered By:Arleth Sanz; Kidney stones IO UA (automated w/o microscopy); Status:Complete; Done: 88Pik8084 08:22AM Performed:In Office; Due:07Yfl2608;Ordered; For:Kidney stones; Ordered By:Arleth Sanz; Renal colic, Right flank pain Start: Ketorolac Tromethamine 10 MG Oral Tablet; TAKE 1 TABLET EVERY 6 HOURS WITH FOOD Rx By: Arleth Sanz; Dispense: 5 Days ; #:20 Tablet; Refill: 0;For: Renal colic, Right flank pain; NILSON = N; Verified Transmission to [facility] [address]; Last Updated By: Amelia Longoria; 12/18/2021 8:45:56 [...] Chief Complaint Kidney Stones History of Present Pjscspg29l female who presents for evaluation of nephrolithiasis, [...] a) No falls within the last year GR-Ggiznhn-Gx [place] [address] Work Phone: Tobacco use status [facility] b) No VJ-Zgkvifs-Px [place] [address] Work Phone: Cult, Urineon 12-11-2021 Bacteria identified Cx Nom (U) [facility] [employer] Work Phone: IO UA (automated w/o microsc opy)on 12-11-2021 Protein (U) [Mass/Vol] Negative Normal [facility] [employer] Work Phone: IO UA (automated w/o microscopy) (+)small - 15 Abnormal [facility] [employer] Work Phone: IO UA (automated w/o microscopy) Negative Normal [facility] [employer] Work Phone: IO UA (automated w/o microscopy) Normal (0.2-1.0 mg/dl) Normal [facility] [employer] Work Phone: IO UA (automated w/o microscopy) 6.0 1 [facility] [employer] Work Phone: IO UA (automated w/o microscopy) (++)moderate - 40 Abnormal [facility] [employer] Work Phone: IO UA (automated w/o microscopy) 1.020 1 [facility] [employer] Work Phone: IO UA (automated w/o microscopy) Hazy [facility] [employer] Work Phone: IO UA (automated w/o microscopy) Soila [facility] [employer] Work Phone: Office Visit ([facility])on 12-11-2021 Follow-up visit Diagnoses/Problems Right flank pain (789.09) (R10.9) Hematuria (599.70) (R31.9) Renal colic (788.0) (N23) Morbid obesity with BMI of 50.0-59.9, adult (278.01,V85.43) (E66.01,Z68.43) Orders Hematuria Start: Ciprofloxacin HCl - 500 MG Oral Tablet; one by mouth twice a day for 7 days Cult, Urine; Status:Resulted - Requires Verification,Retrospective Authorization; Done: 55Khh0672 04:31PM Start: Ibuprofen 800 MG Oral Tablet; [...] microscopy); Status:Resulted - Requires Verification,Retrospective Authorization; Done: 74Tux5876 12:37PM Patient Discussion/Summary Urine test in office [...] By signing my name below, I, Cynthia Shaunna Lofton, attest that this documentation has been prepared [...] CT Abdomen and Pelvis WO contrast Normal -[facility] Work Phone: URINE CULTURE,BACTERIALon URINE CULTURE,BACTERIAL PATIENT: SERA WOO LOCATION: C0607 BILL#: [id number] : [birth year] AGE: SEX: F ORDERED BY: HETAL ALONSO SOURCE: URINE COLLECTED: 12/11/21 16:31 ANTIBIOTICS AT JAIRON.: RECEIVED : 12/12/21 00:54 SITE: Clean Catch/Voided R E S U L T S URINE CULTURE,BACTERIAL FINAL 12/12/21 17:23 NO SIGNIFICANT GROWTH. Normal [facility] Comment on above: Performed By: #### U [facility] #### [facility] [address] [place] [address] XR foot RT min 3V*on 021 XR foot RT min 3V* [facility] Main [place] [address] [place] [address] XRay Report Signed Patient: Sera Woo MR#: [id number] 73 : 1980 Acct:[id number] Age/Sex: 40 / F ADM Date: 04/04/21 [place] [facility] [place]: Type: [facility] Attending Dr: Francia Collazo DPM, MS Ordering Provider: Francia Collazo DPM, MS Date of Service: 04/04/21 XR/XR ankle RT min 3V*: M25.571 ([id number]) XR/XR foot RT min 3V*: M79.671 Copies to: Fracnia Collazo DPM, MS Right ankle and right [...] MD 04/04/21 1414 Signed By: 04/04/21 1440 [facility] XR ankle RT min 3V*on 2020 XR ankle RT min 3V* [facility] Main [address] [address] XRay Report Signed Patient: Sera Woo MR#: [id number] 73 : 1980 Acct:[id number] Age/Sex: 40 / F ADM Date: 03/21/21 [place] [facility] [place]: Type: REG CLI Attending Dr: Francia Collazo DPM, MS [...] Chelsey Bobo M.D.03/21/2021 11:41 AM Dictation Location: RADIO--11 Transcribed By: NOE 03/21/21 1141 Dictated By: Chelsey Bobo MD 03/21/21 1139 Signed By: 03/21/21 1141 [facility] XR ankle RT min 3V*on 2020 XR ankle RT min 3V* [facility] Main [address] [address] XRay Report Signed Patient: Sera Woo MR#: [id number] 73 : 1980 Acct:[id number] Age/Sex: 40 / F ADM Date: 02/21/21 Loc: [facility] Room: Type: REG CLI Attending : Francia Collazo DPM, MS Ordering Provider: Francia Collazo DPM, MS Date of Service: 02/21/21 XR/XR ankle RT min 3V*: M25.571 ([id number]) XR/XR foot RT min 3V*: M79.671 Copies [...] Chelsey Bobo M.D.02/21/2021 12:11 PM Dictation Location: [place] [address] Transcribed By: [facility] 02/21/21 1211 Dictated By: Chelsey Bobo MD 02/21/21 1207 Signed By: 02/21/21 1211 [facility] Initial Visit (Orthopaedic S urgery)on 10-10-2020 [...] your surgery. Please call Pamela Dias at [phone] to schedule your surgery and if you have any further questions. Chief Complaint Pt here for right ankle pain. /tc History of Present Fynjmek51-lgxw-btl woman who presents today for evaluation of [...] at outside facility on 09/27/2020 and her gis coordinator surgeon placed her on nonweightbearing restrictions with boot and 2 crutches. 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 She takes [place] nightly and Advil throughout the day but still states that her pain remains quite high. Past medical history of morbid obesity Past surgical history of open reduction of the talus right foot 04/12/[facility] Dr. Duran Family history noncontributory to presenting problem Social history non-smoker Medications include control pill, Advil and [place] REVIEW OF SYSTEMS Constitutional: no unplanned weight [...] or Percocet. She does do well with [place] and Dilaudid. We discussed with her that [...] voiced understanding and agreement. Note dictated with [employer]exercise science internship software, completed without full type editing to avoid delay. Vitals Vital Signs Recorded: [id number] 05:30PM Height5 ft 5 in Myqzvm691 lb BMI Fahoherpqn37.93 BSA Calculated2.31 Signatures Electronically signed by : Ebony Shah MD; Oct 10 2020 5:36PM EST (Author) Normal [facility] Vital Signs Date Time Vital Sign Value Performing Clinician Facility 12-27-2023 11:24050 Body height 167.6 cm Heatl Alonso MD Work Phone: [facility] 12-27-2023 11:24-050 Body mass index (BMI) [Ratio] 53.75 kg/m2 Hetal Alonso MD Work Phone: [facility] 12-27-2023 11:24-050 Body temperature 98.01 [degF] Hetal Alonso MD Work Phone: [facility] 12-27-2023 11:24-0500 Body weight 151.05 kg Hetal Alonso MD Work Phone: [facility] 12-27-2023 11:24-0500 Diastolic blood pressure 80 mm[Hg] Hetal Alonso MD Work Phone: [facility] 12-27-2023 11:24-0500 Heart rate 80 /min Hetal Alonso MD Work Phone: [facility] 12-27-2023 11:24-0500 Systolic blood pressure 138 mm[Hg] Hetal Alonso MD Work Phone: 4(706)045-717581 [address] 10-21-2023 13:20-0500 Diastolic blood pressure 80 mm[Hg] Hetal Alonso MD Work Phone: 4(488)003-357781 [address] 10-21-2023 13:20-0500 Systolic blood pressure 130 mm[Hg] Hetal Alonso MD Work Phone: 4(212)244-262381 [address] 10-21-2023 13:05-0500 Body height 167.6 cm Hetal Alonso MD Work Phone: 8(995)739-834722 [place] [address] 10-21-2023 13:05-0500 Body mass index (BMI) [Ratio] 53.75 kg/m2 Hetal Alonso MD Work Phone: [facility] 10-21-2023 13:05-0500 Body temperature 98.2 [degF] Hetal Alonso MD Work Phone: [facility] 10-21-2023 13:05-0500 Body weight 151.05 kg Hetal Alonso MD Work Phone: [facility] 10-21-2023 13:05-0500 Heart rate 92 /min Hetal Alonso MD Work Phone: 7(717)451-279322 [place] [address] 10-21-2023 13:05-0500 SaO2% (BldA) [Mass fraction] 96 % Hetal Alonso MD Work Phone: 7(691)200-485622 [place] [address] 06-28-2023 11:54-0400 Diastolic blood pressure 80 mm[Hg] Hetal Alonso MD Work Phone: [facility] 06-28-2023 11:54-0400 Systolic blood pressure 130 mm[Hg] Hetal Alonso MD Work Phone: [facility] 06-28-2023 11:08-0400 Body mass index (BMI) [Ratio] 51.81 kg/m2 Hetal Alonso MD Work Phone: [facility] 06-28-2023 11:08-0400 Body temperature 97.81 [degF] Hetal Alonso MD Work Phone: [facility] 06-28-2023 11:08-0400 Body weight 145.6 kg Hetal Alonso MD Work Phone: [facility] 06-28-2023 11:08-0400 Heart rate 94 /min Hetal Alonso MD Work Phone: [facility] 04-29-2023 10:45-0400 Body height 165.1 cm Evan Feliciano Other [facility] [employer] Other 04-29-2023 10:45-0400 Diastolic blood pressure 80 mm[Hg] Evan Feliciano Other [facility] [employer] Other 04-29-2023 10:45-0400 SaO2% (BldA) [Mass fraction] 98 % Evan Feliciano Other [facility] [employer] Other 04-29-2023 10:45-0400 Systolic blood pressure 140 mm[Hg] Evan Feliciano Other [facility] [employer] Other 04-05-2023 10:00-0400 Body weight 140.62 kg Evan Feliciano Other [facility] [employer] Other 04-05-2023 10:00-0400 SaO2% (BldA) [Mass fraction] 98 % Evan Feliciano Other [facility] [employer] Other 09-11-2022 10:28-0500 Body height 167.64 cm Hetal Alonso Work Phone: [facility] Work Phone: 09-11-2022 10:28-0500 Body mass index (BMI) [Ratio] 43.74 kg/m2 Hetal lAonso Work Phone: [facility] Work Phone: 09-11-2022 10:28-0500 Body surface area Derived from formula 2.28 m2 Hetal Alonso Work Phone: [facility] Work Phone: 09-11-2022 10:28-0500 Body temperature 96.9 [degF] Hetal Alonso Work Phone: [facility] Work Phone: 09-11-2022 10:28-0500 Body weight 122.93 kg Hetal Alonso Work Phone: [facility] Work Phone: 09-11-2022 10:28-0500 Diastolic blood pressure 76 mm[Hg] Hetal Alonso Work Phone: [facility] Work Phone: 09-11-2022 10:28-0500 Heart rate 79 /min Hetal Alonso Work Phone: [facility] Work Phone: 09-11-2022 10:28-0500 SaO2% (BldA) [Mass fraction] 100 % Hetal Alonso Work Phone: [facility] Work Phone: 09-11-2022 10:28-0500 Systolic blood pressure 124 mm[Hg] Hetal Alonso Work Phone: [facility] Work Phone: 08-20-2022 09:28-0400 Body height 167.64 cm Hetal Alonso Work Phone: [facility] Work Phone: 08-20-2022 09:28-0400 Body mass index (BMI) [Ratio] 43.9 kg/m2 Hetal lAonso Work Phone: [facility] Work Phone: 08-20-2022 09:28-0400 Body surface area Derived from formula 2.28 m2 Hetal Alonso Work Phone: [facility] Work Phone: 08-20-2022 09:28-0400 Body temperature 96.9 [degF] Hetal Alonso Work Phone: [facility] Work Phone: 08-20-2022 09:28-0400 Body weight 123.38 kg Hetal Alonso Work Phone: [facility] Work Phone: 08-20-2022 09:28-0400 Diastolic blood pressure 72 mm[Hg] Hetal Alonso Work Phone: [facility] Work Phone: 08-20-2022 09:28-0400 Heart rate 78 /min Hetal Alonso Work Phone: [facility] Work Phone: 08-20-2022 09:28-0400 SaO2% (BldA) [Mass fraction] 99 % Hetal Alonso Work Phone: [facility] Work Phone: 08-20-2022 09:28-0400 Systolic blood pressure 124 mm[Hg] Hetal Alonso Work Phone: [facility] Work Phone: 07-18-2022 09:42-0400 Body height 167.64 cm Hetal Alonso Work Phone: [facility] Work Phone: 07-18-2022 09:42-0400 Body mass index (BMI) [Ratio] 44.87 kg/m2 Hetal Alonso Work Phone: [facility] Work Phone: 07-18-2022 09:42-0400 Body surface area Derived from formula 2.3 m2 Hetal Alonso Work Phone: [facility] Work Phone: 07-18-2022 09:42-0400 Body weight 126.1 kg Hetal Alonso Work Phone: [facility] Work Phone: 07-18-2022 09:42-0400 Diastolic blood pressure 72 mm[Hg] Hetal Alonso Work Phone: [facility] Work Phone: 07-18-2022 09:42-0400 Heart rate 97 /min Hetal Alonso Work Phone: [facility] Work Phone: 07-18-2022 09:42-0400 SaO2% (BldA) [Mass fraction] 99 % Hetal Alonso Work Phone: [facility] Work Phone: 07-18-2022 09:42-0400 Systolic blood pressure 118 mm[Hg] Hetal Alonso Work Phone: [facility] Work Phone: 12-18-2021 08:10-0500 Body height 167.64 cm Hetal Alonso Work Phone: TZ-Mugfaig-Leaohkfs [facility] [address] Work Phone: 12-18-2021 08:10-0500 Body mass index (BMI) [Ratio] 51.65 kg/m2 Hetal Alonso Work Phone: [facility] [place] [address] Work Phone: 12-18-2021 08:10-0500 Body surface area Derived from formula 2.44 m2 Hetal Alonso Work Phone: ON-Zsbduen-Kbsptnfa [address] [address] Work Phone: 12-18-2021 08:10-0500 Body temperature 96.9 [degF] Hetal Alonso Work Phone: DD-Rdhohnr-Hksotgsk [facility] [address] Work Phone: 12-18-2021 08:10-0500 Body weight 145.15 kg Hetal Alonso Work Phone: BZ-Apkqhwd-Eftygzrx [facility] [address] Work Phone: 12-18-2021 08:10-0500 Diastolic blood pressure 99 mm[Hg] Hetal Alonso Work Phone: HG-Jhplfcy-Oimghxjb [facility] [address] Work Phone: 12-18-2021 08:10-0500 Heart rate 106 /min Hetal Alonso Work Phone: GD-Aatgstp-Bvefjknb [facility] [address] Work Phone: 12-18-2021 08:10-0500 Systolic blood pressure 155 mm[Hg] Hetal Alonso Work Phone: RH-Gkhihxo-Kojcpimw [facility] [address] Work Phone: 12-11-2021 12:24-0500 Body height 167.64 cm Hetal Alonso Work Phone: [facility] Work Phone: 12-11-2021 12:24-0500 Body mass index (BMI) [Ratio] 51.65 kg/m2 Hetal Alonso Work Phone: [facility] Work Phone: 12-11-2021 12:24-0500 Body surface area Derived from formula 2.44 m2 Hetal Alonso Work Phone: [facility] Work Phone: 12-11-2021 12:24-0500 Body temperature 98.3 [degF] Hetal Alonso Work Phone: [facility] Work Phone: 12-11-2021 12:24-0500 Body weight 145.15 kg Hetal Alonso Work Phone: [facility] Work Phone: 12-11-2021 12:24-0500 Diastolic blood pressure 80 mm[Hg] Hetal Alonso Work Phone: [facility] Work Phone: 12-11-2021 12:24-0500 Heart rate 80 /min Hetal Alonso Work Phone: [facility] Work Phone: 12-11-2021 12:24-0500 Systolic blood pressure 120 mm[Hg] Hetal Alonso Work Phone: [facility] Work Phone: 08-11-2021 15:04-0400 Body height 167.64 cm Hetal Alonso Work Phone: [facility] Work Phone: 08-11-2021 15:04-0400 Body mass index (BMI) [Ratio] 51.65 kg/m2 Hetal Recio Alonso Work Phone: [facility] Work Phone: 08-11-2021 15:04-0400 Body surface area Derived from formula 2.44 m2 Hetal Alonso Work Phone: [facility] Work Phone: 08-11-2021 15:04-0400 Body temperature 98.8 [degF] Hetaledison Alonso Work Phone: [facility] Work Phone: 08-11-2021 15:04-0400 Body weight 145.15 kg Hetal Alonso Work Phone: [facility] Work Phone: 08-11-2021 15:04-0400 Diastolic blood pressure 78 mm[Hg] Hetal Alonso Work Phone: [facility] Work Phone: 08-11-2021 15:04-0400 Heart rate 108 /min Hetaledison Alonso Work Phone: [facility] Work Phone: 08-11-2021 15:04-0400 Heart rate 80 /min Hetaledison Alonso Work Phone: [facility] Work Phone: 08-11-2021 15:04-0400 Systolic blood pressure 142 mm[Hg] Hetaledison Alonso Work Phone: [facility] Work Phone: 08-11-2021 15:04-0400 Systolic blood pressure 130 mm[Hg] Hetal Hemal Alonso Work Phone: [facility] Work Phone: 03-24-2021 09:41-0400 Body mass index (BMI) [Ratio] 52.13 kg/m2 Hetal Hemal Alonso Work Phone: [facility] Work Phone: 03-24-2021 09:41-0400 Body surface area Derived from formula 2.45 m2 Hetal Alonso Work Phone: [facility] Work Phone: 03-24-2021 09:41-0400 Body temperature 97.7 [degF] Hetal Alonso Work Phone: [facility] Work Phone: 03-24-2021 09:41-0400 Body weight 146.51 kg Hetal Alonso Work Phone: [facility] Work Phone: 03-24-2021 09:41-0400 Diastolic blood pressure 86 mm[Hg] Hetal Alonso Work Phone: [facility] Work Phone: 03-24-2021 09:41-0400 Heart rate 64 /min Hetal Alonso Work Phone: [facility] Work Phone: 03-24-2021 09:41-0400 Systolic blood pressure 152 mm[Hg] Hetal Alonso Work Phone: [facility] Work Phone: Encounters Encounter Date Encounter Type Care Provider Facility Start: 12-27-2023 End: 12-27-2023 ambulatory HETAL ALONSO [facility] Ambulatory Start: 12-27-2023 End: 12-27-2023 Office outpatient visit 25 minutes Hetal Alonso MD Work Phone: [facility] Comment on above: Adjustment disorder with mixed anxiety and depressed mood (Primary Dx); Weakness of both lower extremities; Bilateral hip pain Start: 10-21-2023 End: 10-22-2023 ambulatory HETAL ALONSO MD Facility:[id number] Start: 10-21-2023 End: 10-21-2023 ambulatory HETAL ALONSO [facility] Ambulatory Start: 10-21-2023 End: 10-21-2023 Office outpatient visit 15 minutes Hetal Alonso MD Work Phone: [facility] Comment on above: Bronchitis (Primary Dx) Start: 07-18-2023 End: 07-18-2023 ambulatory DEWAYNE GARRISON MD Facility:[facility] Start: 06-28-2023 End: 06-28-[address] [facility] Ambulatory Start: 06-28-2023 End: 06-28-2023 Office outpatient visit 15 minutes Hetal Alonso MD Work Phone: [facility] Comment on above: 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); Benign essential hypertension; Morbid obesity with body mass index (BMI) of 50.0 to 59.9 in adult (CMS/HCC) Start: 05-30-2023 End: 05-30-2023 ambulatory Evan Murrellky Other [facility] Other Start: 05-30-2023 Telephone encounter Evan Feliciano [facility] Start: 05-16-2023 (PROC) PROCEDURE Evan Turner [facility] Start: 05-16-2023 End: 05-16-2023 ambulatory Evan Braden Other [facility] Other Start: 05-14-2023 End: 05-15-2023 ambulatory HETAL ALONSO Facility:[facility] Start: 05-09-2023 End: 07-06-2023 ambulatory HETALEDISON ALONSO Facility:[id number] Start: 05-01-2023 End: 05-01-2023 ambulatory Evan Braden Other [facility] Other Start: 05-01-2023 Telephone encounter Evan Feliciano [facility] Start: 04-29-2023 End: 04-29-2023 ambulatory Evan Feliciano Other [facility] Other Start: 04-29-2023 Office outpatient vi sit 25 minutes Evan Feliciano [facility] Start: 04-15-2023 End: 04-16-2023 ambulatory HETAL ALONSO Facility:[id number] Start: 04-05-2023 End: 04-05-2023 ambulatory Evan Feliciano Other [facility] Other Start: 04-05-2023 Office consultation new/estab patient 60 min Evan Feliciano [facility] Karen Start: 04-05-2023 Telephone encounter Evan Feliciano [facility] Start: 03-07-2023 ambulatory [facility]ETAL ALONSO [facility] Start: 02-25-2023 ambulatory [facility]ETAL ALONSO [facility] Start: 02-20-2023 End: 02-21-2023 [facility] Start: 02-06-2023 End: 05-04-2023 ambulatory HETAL ALONSO Facility:[id number] Start: 01-10-2023 End: 01-10-2023 ambulatory FRANCIA Anderson [facility] Facility:H1 Start: 01-08-2023 Encounter for other preprocedural examination FRANCIA Anderson [facility] Start: 01-08-2023 Encounter for preprocedural cardiovascular examination [facility] Justin [facility] Start: 01-08-2023 Encounter for preprocedural laboratory examination [facility] Start: 01-08-2023 End: 01-09-2023 [facility] Start: 01-07-2023 End: 01-08-2023 ambulatory FRANCIA Anderson [facility] Facility:H1 Start: 01-07-2023 End: 01-08-2023 Encounter for preprocedural laboratory examination FRANCIA Anderson [facility] Facility:H1 Start: 12-19-2022 End: 12-20-2022 ambulatory HETAL ALONSO Facility:[facility] Start: 11-21-2022 End: 11-22-2022 ambulatory FRANCIA Anderson [facility] Facility:H1 Start: 11-14-2022 End: 11-15-2022 ambulatory FRANCIA Anderson [facility] Facility:H1 Start: 2022 End: 02-02-2023 ambulatory HETAL ALONSO Facility:[id number] Start: 09-11-2022 Current tobacco non- user cad cap copd pv dm Hetal Alonso Work Phone: [facility] Work Phone: Start: 09-11-[address] HETAL ALONSO Facility:[id number] Start: 08-20-[address] HETAL ALONSO Facility:[id number] Start: 08-20-2022 Current tobacco non- user cad cap copd pv dm Hetal Alonso Work Phone: [facility] Work Phone: Start: 07-25-2022 End: 07-26-2022 ambulatory [facility]IA [facility] Facility:H1 Start: 07-18-2022 Current tobacco non- user cad cap copd pv dm Hetal Alonso Work Phone: [facility] Work Phone: Start: 07-18-[address] HETAL ALONSO Facility:[id number] Start: 04-25-2022 End: 04-26-2022 ambulatory [facility] Facility:H1 Start: 03-23-2022 Rx Renewal Hetal Ferrari s Work Phone: [facility] Work Phone: Start: 03-14-2022 ambulatory [facility] Faci lity:H1 Start: 01-23-2022 Chart Update Hetal Ferrari s Work Phone: IT-Dylpfqv-Kxmxjrqy [facility] 400 DO Work Phone: Start: 01-03-2022 Chart Update Hetal Ferrari s Work Phone: KI-Vwfxdar-Ysvoqlyz [facility] 400 DO Work Phone: Start: 12-28-[address] HETAL ALONSO Facility:[id number] Start: 12-20-2021 AUDIT Hetal Ferrari s Work Phone: GP-Czqswhh-Qqkvnbqm [facility] 400 DO Work Phone: Start: 12-18-2021 NPV, Provider: Arleth Sanz, Status: Pen, Time: 8:00 AM Hetal Alonso Work Phone: [facility] Work Phone: Start: 12-18-2021 Office outpatient ne w 45 minutes Hetal Alonso Work Phone: JL-Axphgrq-Nhwxlqnb [facility] [id number] Work Phone: Start: 12-18-[address] HETAL ALONSO Facility:[id number] Start: 12-11-2021 Current tobacco non- user cad cap copd pv dm Hetal Alonso Work Phone: [facility] Work Phone: Start: 12-11-[address] HETAL ALONSO Facility:[id number] Start: 08-11-2021 Current tobacco non- user cad cap copd pv dm Hetal Alonso Work Phone: [facility] Work Phone: Start: 08-11-2021 Patient encounter procedure Hetal Alonso Work Phone: [facility] Work Phone: Start: 03-24-2021 Current tobacco non- user cad cap copd pv dm Hetal Recio Alonso Work Phone: [facility] Work Phone: Preoperative state Hetal choudhury Work Phone: [facility] Work Phone: Procedures Date Procedure Procedure Detail Performing Clinician Ankle Surgery Hetal turner Work Phone: Comment on above: talus; Cholecystectomy Hetal ho Work Phone: Plan of Treatment Date Care Activity Detail Author Start: 2028 Zoster Vaccines (1 o f 2) Zoster Vaccines (1 of 2) [facility] Start: 10-21-2023 End: 10-21-2024 XR Chest 2 Views XR chest 2 views Imaging Routine Bronchitis Expected: 10/21/2023, Expires: 10/21/2024 [facility] Service Area Work Phone: Comment on above: Expected: 10/21/2023 , Expires: 10/21/2024 Start: 07-05-2023 COVID-19 Vaccine ( season) COVID-19 Vaccine ( season) [facility] Start: 07-05-2023 Influenza vaccination Influenza Vacc ine (#1) [facility] Start: 08-20-2022 [facility], Provider: Hetal Alonso, Status: Pen, Time: 8:45 AM [facility], Provider: Hetal Alonso, Status: Pen, Time: 8:45 AM -[facility] Work Phone: Start: 01-16-2022 [facility], Provider: Abi Karimi, Status: Pen, Time: 10:[address] [facility], Provider: Abi Karimi, Status: Pen, Time: 10:30 AM [facility] 400 DO Work Phone: Start: 12-28-2021 [facility], Provider : Abi Karimi, Status: Pen, Time: 2:30 PM [facility], Provider: Abi Karimi, Status: Pen, Time: 2:30 PM SJ-Xgpaals-Vfdtgrmo [facility] [id number] Work Phone: Start: 10-31-2021 COVID-19 Vaccine (4 - Pfizer series) COVID-19 Vaccine (4 - Pfizer series) [facility] Start: 04-21-2021 [facility], Provider: Hetal Alonso, Status: Pen, Time: 2:30 PM [facility], Provider: Hetal Alonso, Status: Pen, Time: 2:30 PM [facility] Work Phone: Start: 2018 Screening for malign ant neoplasm of breast Mammogram [facility] Start: 2000 DTaP/Tdap/Td Vaccine s (1 - Tdap) DTaP/Tdap/Td Vaccines (1 - Tdap) [facility] Start: 1999 Screening for malign ant neoplasm of cervix [facility] Start: 1996 Diabetes mellitus screening Diabetes Screening [facility] Start: 1996 [facility]: [facility] MMR Vaccines (1 of 1 - Standard series) MMR Vaccines (1 of 1 - Standard series) [facility] Start: 1978 Hepatitis B Vaccines (1 of 3 - 3-dose series) Hepatitis B Vaccines (1 of 3 - 3-dose series) [facility] Start: 1978 HIV screening HIV Screening [facility] Start: 1978 Lipid panel Lipid Panel [facility] Start: 1978 Screening for malign ant neoplasm of colon [facility] Start: 1978 [facility] Immunization Date Immunization Notes Care Provider Fa elias 09-05-2021 Pfizer-BioNTech COVI D-19 Vacc 30 MCG/0.3ML Intramuscular Suspension [place] [facility] [place] Work Phone: 02-12-2021 Pfizer-BioNTech COVI D-19 Vacc 30 MCG/0.3ML Intramuscular Suspension Axxana Work Phone: [facility] Work Phone: Comment on above: Series: 01-22-2021 Pfizer-BioNTech COVI D-19 Vacc 30 MCG/0.3ML Intramuscular Suspension [facility] Work Phone: [facility] [place] Work Phone: Comment on above: Series: Payers Date Payer Category Payer Unknown 1980 Unknown [id number] 1978 Unknown [id number] 2.16 [id number] 1978 Unknown [id number] 2.16. 840.1.125697.3.579.2.356 1978 Unknown [id number] 2.16. 840.1.551258.3.579.2.356 1978 Unknown [id number] 2.16. 840.1.252909.3.579.2.356 1978 Unknown [id number] 2.16. 840.1.171164.3.579.2.356 1978 Unknown [id number] 2.16.84 0.1.363736.3.579.2.593 1978 Unknown [id number] 2.16.84 0.1.399913.3.579.2.593 1978 Unknown [id number] 2.16.84 0.1.513315.3.579.2.593 1978 Unknown [id number] 2.16.84 0.1.731392.3.579.2.593 1978 Unknown [id number] 2.16.84 0.1.142616.3.579.2.593 1978 Unknown [id number] 2.16.84 0.1.819324.3.579.2.593 1978 Unknown [id number] 2.16.84 0.1.328738.3.579.2.593 1978 Unknown [id number] 2.16.84 0.1.231704.3.579.2.593 1978 Unknown [id number] 2.16.8 40.1.492530.3.579.2.159 1978 Unknown [id number] 2.16.8 40.1.340165.3.579.2.159 1978 Unknown [id number] 2.16.8 40.1.425298.3.579.2.159 1978 Unknown [id number] 2.16.8 40.1.113596.3.579.2.159 1978 Unknown [id number] 2.16.8 40.1.731857.3.579.2.159 1978 Unknown [id number] 2.16.8 40.1.427698.3.579.2.159 1978 Unknown [id number] 2.16.8 40.1.801789.3.579.2.159 1978 Unknown [id number] 2.16.8 40.1.970901.3.579.2.159 1978 Unknown [id number] 2.16.8 40.1.860852.3.579.2.159 1978 Unknown [id number] 2.16.8 40.1.827715.3.579.2.159 1978 Unknown [id number] 2.16.8 40.1.318627.3.579.2.159 1978 Unknown [id number] 2.16.8 40.1.880193.3.579.2.159 1978 Unknown [id number] 2.16.8 40.1.382783.3.579.2.159 1978 Unknown [id number] 2.16.8 40.1.776499.3.579.2.1244 1978 Unknown [id number] 2.16.8 40.1.877212.3.579.2.1244 1978 Unknown [id number] 2.16.8 40.1.268028.3.579.2.1244 1959 Unknown [id number] Social History Date Type Detail Facility Start: 07-18-2023 End: 12-27-2023 Never a smoker Never a smoker [facility] Work Phone: Start: 07-18-2023 End: 12-27-2023 Sex Assigned At [facility] [employer] Other Start: 06-28-2023 Tobacco smoking status RIIS Never smoked tobacco [facility] Work Phone: Start: 06-28-2023 Tobacco use and exposure Smokeless tobacco non-user [facility] Work Phone: Start: 07-18-2023 End: 12-27-2023 Alcohol intake Current drinker of alcohol (finding) [facility] Work Phone: Start: 1980 [facility]: Start: 10-11-2023 End: 12-27-2023 Exposure to SARS-CoV-2 (event) Not sure [facility] Clinical Notes 04-04-2020 to 12-27-2023 Hetal Alonso [...] Hetal Alonso MD documented in this encounter [facility] Work Phone: 10-21-2023 Note PROCEDURE: XR CHEST [...] OLIVER INFANTE MD Signed Out: 10/21/23 14:17:29 [facility] 10-21-2023 History of Present illness [...] Hetal Alonso MD documented in this encounter [facility] Work Phone: 07-18-2023 Evaluation + Plan note Associated Problem(s): Morbid obesity with body mass index (BMI) of 50.0 to 59.9 in adult (CMS/HCC) Above normal BMI nutrition and physical activity reviewed [facility] Work Phone: 07-18-2023 Miscellaneous Notes Associated Problem(s): Morbid obesity with body mass index (BMI) of 50.0 to 59.9 in adult (CMS/HCC) Above normal BMI nutrition and physical activity reviewed Associated Problem(s): Avascular necrosis of right talus (CMS/HCC) Persistant pain Continue current managment documented in this encounter [facility] Work Phone: 07-18-2023 Evaluation + Plan note Associated Problem(s): Avascular necrosis of right talus (CMS/HCC) Persistant pain Continue current managment [facility] Work Phone: 06-28-2023 History of Present illness [...] is no history of angina, kidney disease, CAD/SD, CVA, heart failure, left ventricular hypertrophy, PVD [...] Hetal Alonso MD documented in this encounter [facility] Work Phone: 04-29-2023 Evaluation note Encounter Date [...] (ICD-10 - G89.29) Follow up after procedure [facility] Other 06-16-2023 NoteProcedure: MR Lumbar Spine without [...] Carney MD 04/19/2023 3:05 PM CDT Technologist: SR Dictated By: QUENTIN CARNEY MD Signed By: QUENTIN CARNEY MD Signed Out: 04/19/23 16:05:36[facility]06-02-2023 Evaluation note* Encounter Date Diagnosis [...] negative findings were considered in medical decision-making. [facility] Other 05-31-2023 NotePT Outpatient Progress Note Entered [...] wedge to encourage calcaneus into more eversion. [place] okay to patient butwill have patient use [...] : KE and KF alphabet x1 Cosme DAWN, Abdoulaye - 04/03/2023 12:59 EDT Cosme PT, Abdoulaye - 04/03/2023 12:59 EDT Cosme PT, Abdoulaye 04/03/2023 [...] Cosme DAWN, Abdoulaye 04/03/2023 12:59 EDT Cosme DAWN, Abdoulaye 04/03/2023 12:59 EDT Cosme [...] noodle Cosme DAWN Abdoulaye 04/03/2023 12:59 EDT Cosme DAWN, Abdoulaye 04/03/2023 12:59 EDT Cosme PT, Abdoulaye 04/03/2023 12:59 EDT Cosme DAWN, Abdoulaye 04/03/2023 12:59 EDT Exercise 13 Exercise [...] 0 Abdoulaye Aguiar PT - 04/03/2023 12:[facility] NotePT Outpatient Progress Note Entered [...] wedge to encourage calcaneus into more eversion. [place] okay to patient butwill have patient use for awhile to ascertain tolerability. Attending Physician : Name: STEFAN SOTO Cosme DAWN, Abdoulaye 03/29/2023 9:02 EDT Pain Assessment Pain Location : Ankle Laterality : Right Self Report Pain : Numeric rating scale Numeric Pain Scale : 6 Numeric Pain Score : 6 Cosme DAWN, Abdoulaye - 03/29/2023 13:40 EDT Therapeutic Exercise Custom [...] Abdoulaye 03/29/2023 13:40 EDT Cosme DAWN, Abdoulaye - 03/29/2023 13:40 EDT Cosme DAWN, Abdoulaye 03/29/2023 [...] DAWN, Abdoulaye 03/29/2023 13:40 EDT Cosme DAWN, Adboulaye - 03/29/2023 13:40 EDT Cosme DAWN, Abdoulaye - 03/29/2023 13:40 EDT Cosme DAWN, Abdoulaye 03/29/2023 [...] HEP Given : Yes Comment : Cosme DAWN, Abdoulaye - 03/29/2023 13:40 EDT Cosme DAWN, Abdoulaye 03/29/2023 13:40 EDT Cosme DAWN Abdoulaye 03/29/2023 13:40 EDT Abdoulaye Aguiar PT 03/29/2023 [...] Abdoulaye 03/29/2023 13:40 EDT Abdoulaye Aguiar PT 03/29/2023 [...] on weightbearing and gait. Abdoulaye Aguiar PT 03/29/2023 13:40 EDT Plan Frequency : 2 [...] PT OP : 0 Abdoulaye Aguiar PT 03/29/2023 13:40 [facility] 03-29-2023 NotePT Outpatient Progress Note Entered On: [...] wedge to encourage calcaneus into more eversion. [place] okay to patient butwill have patient use for awhile to ascertain tolerability. 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 Will be seeing pain management for trial injections. Pt is experiencing increased swelling in the evening. has not been able to complete her ankle and calf stretching d/t pain, and now feels very tight. Meredith Menendez PTA 03/26/2023 11:24 EDT Manual Therapy : Yes [...] PT Outpatient : N/A Meredith Menendez PTA 03/26/2023 8:59 EDT Assessment PT Response to [...] Soft Tissue Mobility Time : 0 minutes FITNESS STUDIES TEACHER Soft Tissue Mobility Units : 0 units PT Total Timed Code Treatment Units : 0 units PT Total Timed Code Tx Minutes : 0 minutes 8 Min Rule Unit Check PT OP : 0 units PT Total Treatment Time Rehab : 0 minutes 8 Min Rule Unit Difference PT OP : 0 Meredith Menendez PTA 03/26/2023 8:[facility] NotePT Outpatient Progress Note Entered On: 03/12/2023 10:13 EDT Performed On: 03/12/2023 8:54 EDT by Meredith Mneendez PTA Review/Treatments Provided Total Visit Count : 52 Visit Count Reviewed? 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 Modified metatarsal cookie to use as lateral heel wedge to encourage calcaneus into more eversion. [place] okay to patient butwill have patient use [...] Given : Comment : Shon PALACIO, Meredith 03/12/2023 8:54 EDT Shon FITNESS STUDIES TEACHER, Meredith 03/12/2023 8:54 EDT Shon FITNESS STUDIES TEACHER, Meredith - 03/12/2023 8:54 EDT Shon [facility]03/12/2023 8:54 EDT Exercise 5 Exercise 6 Exercise 7 Exercise 8 Exercise : Seated Baps Standing with relaxed foot Modified tandem stand Seated Dome Equipment/Device : Repetition/Time : 10 ea 1 minute 10x2 3x10 Resist or Assist : Not Performed : X X X HEP Given : Comment : x4 way and CW/CCW Shno [facility], Meredith - 03/12/2023 8:54 EDT Shon [facility] 03/12/2023 8:54 EDT Shon [facility]03/12/2023 8:54 EDT Shon [facility]03/12/2023 8:54 EDT Exercise 9 Exercise 10 [...] HEP Given : Yes Comment : Shon [facility]03/12/2023 8:54 EDT Shon [facility] 03/12/2023 8:54 EDT Shon [facility] 03/12/2023 8:54 EDT Shon [facility]03/12/2023 8:54 EDT Exercise 14 Exercise : Gait training without AD Equipment/Device : Repetition/Time : 25 min Resist or Assist : Not Performed : HEP Given : Comment : Shon [facility] 03/12/2023 8:54 EDT Education *Barriers To Learning [...] with Patient/Caregiver : Yes Meredith Menendez PTA 03/14/2023 10:24 EDT Time Spent with Patient - Outpatient PT Time In : 00:00 EST PT Time Out : 00:00 EST PT Therapeutic Exercise Time : 0 minutes FITNESS STUDIES TEACHER Therapeutic Exercise Units : 0 units PT Total Timed Code Treatment Units : 0 units PT Total Timed Code Tx Minutes : 0 minutes 8 Min Rule Unit Check PT OP : 0 units PT Total Treatment Time Rehab : 0 minutes 8 Min Rule Unit Difference PT OP : 0 Meredith Menendez PTA - [facility] Outpatient Progress Note [...] wedge to encourage calcaneus into more eversion. [place] okay to patient butwill have patient use [...] Shon PALACIO, Meredith 03/05/2023 11:48 EDT Shon FITNESS STUDIES TEACHER, Meredith 03/05/2023 11:48 EDT Shon FITNESS STUDIES TEACHER, Meredith 03/05/2023 11:48 EDT Exercise 5 Exercise [...] PT Therapeutic Exercise Time : 0 minutes FITNESS STUDIES TEACHER Therapeutic Exercise Units : 0 units PT Total Timed Code Treatment Units : 0 units PT Total Timed Code Tx Minutes : 0 minutes 8 Min Rule Unit Check PT OP : 0 units PT Total Treatment Time Rehab : 0 minutes 8 Min Rule Unit Difference PT OP : 0 Meredith Menendez PTA 03/05/2023 14:[facility]2023 NotePT Outpatient Progress Note Entered [...] wedge to encourage calcaneus into more eversion. [place] okay to patient butwill have patient use [...] Cosme DAWN Abdoulaye - 03/15/2023 9:00 EDT Cosem DAWN Abdoulaye - 03/15/2023 9:00 EDT Cosme [...] Cosme DAWN Abdoulaye - 03/15/2023 9:00 EDT DiAbdoulaye buckner PT - 03/15/2023 9:00 EDT Abdoulaye Aguiar PT - 03/15/2023 9:00 EDT Exercise 14 Exercise [...] 0 Abdoulaye Aguiar PT - 03/15/2023 9:[facility]2023 NotePT Outpatient Progress Note Entered On: 03/13/2023 13:29 EDT Performed On: 03/13/2023 10:30 EDT by Favio Whittaker PT Review/Treatments Provided Total Visit Count : 52 Visit Count Reviewed? : Yes Jail Goals Reviewed : Yes Diagnosis : Reason for Visit: M19.171=POST TRAUMATIC ARTHRITIS OF R ANKLE, SX 01/10/23 Precautions/Special Notes : 03/01/23 looked at patient's orthotic materials. Modified metatarsal cookie to use as lateral heel wedge to encourage calcaneus into more eversion. [place] okay to patient butwill have patient use for awhile to ascertain tolerability. Attending Physician : Name: STEFAN SOTO Subjective : good day per pt., using 1 walking stick Aquatics : Yes Panfilo PT, Favio - 03/13/2023 13:19 EDT Jail Goals PT Outpt Pt Goal - grid Goal #1 PT Patient,Caregiver Goal : Walk with normal gait characteristics (non-everted) using appropriate toe-off. Duration : 8 weeks Status : Initial Date : 02/06/2023 EDT Panfilo PT, Favio - 03/13/2023 13:19 EDT General Function Goal [...] Outpatient : Other: SL walk Panfilo PT, Favio 03/13/2023 13:19 EDT Assessment PT Response [...] Established with Patient/Caregiver : Yes Panfilo PT, Favio 03/13/2023 13:19 EDT Time Spent with [...] : 0 Panfilo DAWN, Favio 03/13/2023 13:[facility] Out[facility] Progress Note Entered On: 03/08/2023 [...] wedge to encourage calcaneus into more eversion. [place] okay to patient butwill have patient use [...] Line: 8 mg = 1 tabs, ORAL, [id number], PRN: as needed for nausea/vomiting, 30 tabs, 0 Refill(s) ; Ordering Provider: YARELI FOREMAN DPM, RES; Catalog Code: ondansetron ; Order Dt/Tm: 04/14/2020 11:00:03 EDT acetaminophen-hydrocodone : acetaminophen-hydrocodone ; Status: Prescribed ; Ordered As Mnemonic: acetaminophen-HYDROcodone 325 mg-5 mg oral tablet ; Simple Display Line: 2 tabs, ORAL, [id number], PRN: Moderate to Severe Pain, 30 tabs, [...] : Comment : x4 way and CW/CCW Ewrin Aguiar PT (more content not included)...[facility] 03-06-2023 NotePT Outpatient Progress Note [...] wedge to encourage calcaneus into more eversion. [place] okay to patient butwill have patient use [...] 10x3 Comment : KE and KF Cosme DAWN, Abdoulaye - 03/06/2023 13:08 EDT Cosme PT, Abdoulaye - 03/06/2023 13:08 EDT Cosme PT, Abdoulaye - 03/06/2023 13:08 EDT Cosme DAWN, Abdoulaye - 03/06/2023 13:08 EDT Exercise 5 Exercise 6 Exercise 7 Exercise 8 Exercise : Calf Raises, Other: Toe raises Other: Standing Inversion and Eversion Other: Squats Step-up, Other: and Lateral step downs Reps/Time : x20 ea x15 ea x20 x20 ea Comment : bottom pool step Cosme DAWN, Abdoulaye - 03/06/2023 13:08 EDT Cosme DAWN, Abdoulaye - 03/06/2023 13:08 EDT Cosme DAWN, Abdoulaye - 03/06/2023 13:08 EDT Cosme PT, [...] Cosme DAWN, Abdoulaye - 03/06/2023 13:08 EDT DittAbdoulaye huff PT - 03/06/2023 13:08 EDT Abdoulaye Aguiar PT - 03/06/2023 13:08 EDT Exercise 13 Exercise : Cool down walk Reps/Time : 3' Comment : Abdoulaye Aguiar PT - 03/06/2023 13:08 EDT Education *Barriers To Learning : None evident *Teaching Method : Explanation Patient Education - PT Outpatient : Home exercise program - progression/modification Abdoulaye Aguiar PT 03/06/2023 13:08 EDT Assessment PT Clinical Assessment Summary : Did well despite increased and additions in exercise Abdoulaye Aguiar PT 03/06/2023 13:08 EDT Plan Frequency : 2 [...] 0 Abdoulaye Aguiar PT - 03/06/2023 13:[facility] Out[facility] Progress Note Entered [...] wedge to encourage calcaneus into more eversion. [place] okay to patient romy have patient use for awhile to ascertain tolerability. Attending Physician : Name: STEFAN SOTO Subjective : Patient reports she is doing her new exercises, the lateral slant board exercise has to be done at the end as it is tender. She brought in all her orthotics and materials for therapist to look at. Therapeutic Exercise : Yes Cosme DAWN Abdoulaye - 03/01/2023 10:28 EDT Therapeutic Exercise Custom [...] way and CW/CCW Cosme DAWN Abdoulaye - 03/01/2023 10:28 EDT Abdoulaye Aguiar PT [...] - 03/01/2023 10:28 EDT Abdoulaye Aguiar PT 03/01/2023 10:28 EDT Abdoulaye [...] 0 Abdoulaye Aguiar PT - 03/01/2023 10:28 [facility]PT Outpatient Progress Note Entered On: 02/27/2023 11:05 EDT Performed On: 02/27/2023 10:54 EDT by Abdoulaye Aguiar PT Review/Treatments Provided Total Visit Count : 47 Visit Count Reviewed? : Yes Diagnosis : Reason for Visit: M19.171=POST TRAUMATIC ARTHRITIS OF R ANKLE, SX 01/10/23 Attending Physician : Name: BRITTANY , STEFAN KEVIN Subjective : Patient walking without sticks at [...] Given : Comment : Cosme DAWN Abdoulaye 02/27/2023 10:54 EDT Abdoulaye Aguiar PT 02/27/2023 [...] x4 way and CW/CCW Cosme DAWN Abdoulaye 02/27/2023 10:54 EDT Abdoulaye Aguiar PT 02/27/2023 [...] : Abdoulaye Aguiar PT 02/27/2023 10:54 EDT Abdoulaey Aguiar PT 02/27/2023 10:54 EDT Abdoulaye Aguiar PT - 02/27/2023 10:54 EDT Trinitydudley DAWN Abdoulaye 02/27/2023 10:54 EDT Education *Barriers [...] gravity and give of midsole. Cosme LÓPEZAbdoulaye 02/27/2023 10:54 EDT Plan Frequency : 2 times per week *Duration : 8 Weeks *Treatments : Balance training, Manual therapy, Therapeutic exercises, Patient education, Gait training *Plan for Next Visit : Cont per plan Home Exercise Program/Other PT Treatment Provided : Initiated Treatment Plan/Goals Established with Patient/Caregiver : Yes Trinitytammirefugio LÓPEZ Abdoulaye 02/27/2023 10:54 EDT Time Spent with Patient [...] PT OP : 0 Trinitytammirefugio LÓPEZ Abdoulaye 02/27/2023 10:[facility] NotePT Outpatient Progress Note Entered [...] aquatic session Aquatics : Yes Jerrod WHITET, [place] 02/26/2023 16:01 EDT Aquatic Therapy Aqua Ankle - grid Exercise 11 Exercise 1 Exercise 2 Exercise 3 Exercise : Water cycle - bench Warm-up walk Calf stretch Ankle Pumps, Ankle circles Reps/Time : 3' 3' 20x3 x20 Comment : KE and KF Savagei DPT, [place] 02/26/2023 16:13 EDT Torstenski DPT, [place] 02/26/2023 16:01 EDT Torstenski DPT, [place] 02/26/2023 16:01 EDT Torstenski DPT, [place] 02/26/2023 16:13 EDT Exercise 4 Exercise 5 Exercise 6 Exercise 7 Exercise : One leg stance Calf Raises, Other: Toe raises Other: Standing Inversion and Eversion Other: Squats Reps/Time : 10x3 x20 ea x15 ea x20 Comment : Jerrod WHITET, [place] 02/26/2023 16:01 EDT Torstenski DPT, [place] 02/26/2023 16:01 EDT Torstenski DPT, [place] 02/26/2023 16:01 EDT Torstenski DPT, [place] 02/26/2023 16:01 EDT Exercise 8 Exercise 9 Exercise 10 Exercise 12 Exercise : Step-up March walk, Retro walk, Lateral walk Other: Flex, Abd, Extension of hips Other: Gait training trying to improve toe off, delaying heel off slightly. Reps/Time : x10 4w ea x15 ea 4w - 0 Comment : bottom pool step Savagei DPT, [place] 02/26/2023 16:13 EDT Torstenski DPT, [facility] 02/26/2023 16:01 EDT Torstenski DPT, [place] 02/26/2023 16:01 EDT Torstenski DPT, [place] 02/26/2023 16:13 EDT Exercise 13 Exercise : Cool down walk Reps/Time : 3' Comment : Jerrod KATZ, [place] 02/26/2023 16:13 EDT Education *Barriers To Learning : None evident *Teaching Method : Demonstration, Explanation Patient Education - PT Outpatient : Other: exercise technique Jerrod KATZ, [facility] 02/26/2023 16:13 EDT Assessment PT Response to Treatment : Tolerated well PT Clinical Assessment Summary : Pt reports less soreness following this tx compared to first aquatic session. Notes benefit with water walking and focus on mechanics. Group charge due to pt overlap. Jerrod KATZ, [facility] 02/26/2023 16:13 EDT Plan Frequency : 2 times per week *Duration : 8 Weeks *Treatments : Balance training, Manual therapy, Therapeutic exercises, Patient education, Gait training *Plan for Next Visit : f/u on land; pt requesting print out of aquatic ex's Home Exercise Program/Other PT Treatment Provided : Initiated Treatment Plan/Goals Established with Patient/Caregiver : Yes Jerrod KATZ, [facility] 02/26/2023 16:13 EDT Time Spent with Patient - Outpatient PT Time In : 16:00 EST Jerrod KATZ, [facility] 02/26/2023 16:01 EDT PT Time Out : 16:38 EST Jerrod KATZ, [facility] 02/26/2023 16:13 EDT PT Aquatic Group Therapy Units : 1 units PT Aquatic Group Therapy Time : 15 minutes Jerrod KATZ, [facility] 02/26/2023 16:01 EDT PT Aquatic Units : 2 units PT Aquatic Time : 23 minutes PT Total Timed Code Treatment Units : 2 units PT Total Timed Code Tx Minutes : 23 minutes 8 Min Rule Unit Check PT OP : 2 units Jerrod KATZ, [facility] 02/26/2023 16:13 EDT PT Total Untimed Code Treatment Minutes : 15 minutes Jerrod KATZ, [facility] 02/26/2023 16:01 EDT PT Total Treatment Time Rehab : 38 minutes Jerrod KATZ, [facility] 02/26/2023 16:13 EDT 8 Min Rule Unit Difference PT OP : 0 Jerrod KATZ, [facility] 02/26/2023 [facility] NotePT Outpatient Progress Note Entered [...] Pain Score : 4 Cosme DAWN Abdoulaye 02/22/2023 11:27 EDT Aquatic Therapy Aqua Ankle - grid Exercise 1 Exercise 2 Exercise 3 Exercise 4 Exercise : Warm-up walk Calf stretch Ankle Pumps, Ankle circles, Cool down walk (Comment: Inv/Eversion [Cosme DAWN Abdoulaye 02/22/2023 11:27 EDT] ) One leg stance Reps/Time : 3' 20x3 x20 10x3 Resist/Assist : Comment : KE and KF Cosme DAWN Abdoulaye 02/22/2023 11:27 EDT Cosme DAWN Abdoulaye - 02/22/2023 11:27 EDT Cosme DAWN Abdoulaye - 02/22/2023 11:27 EDT Cosme DAWN Abdoulaye 02/22/2023 11:27 EDT Exercise 5 Exercise 6 Exercise 8 Exercise 9 Exercise : Calf Raises, Other: squats Other: Standing Inversion and Eversion Step-up March walk, Retro walk, Lateral walk Reps/Time : x20 ea x10 ea x10 4w ea Resist/Assist : Other: small red step Comment : Cosme DAWN Abdoulaye - 02/22/2023 11:27 EDT Abdoulaye Aguiar PT - 02/22/2023 11:27 EDT Cosme DAWN Abdoulaye 02/22/2023 11:27 EDT Cosme DAWN Abdoulaye 02/22/2023 11:27 EDT Exercise 10 Exercise [...] 0 Abdoulaye Aguiar PT - 02/22/2023 11:27 [facility] 02-22-2023 NotePT Outpatient Progress Note Entered On: [...] ANKLE, SX 3/9/23 Attending Physician : Name: BRITTANY STEFAN Connormorgan PALACIO Meredith 02/21/2023 10:54 EDT Pain Assessment Pain Location : Ankle Laterality : Right Self Report Pain : Numeric rating scale Numeric Pain Scale : 5 = Moderate pain Numeric Pain Score : 5 ShonMeredith zaragoza PTA 02/21/2023 17:53 EDT Gait Analysis PMR [...] PT Gait Training Time : 0 minutes FITNESS STUDIES TEACHER Gait Training Units : 0 units PT Total Timed Code Treatment Units : 0 units PT Total Timed Code Tx Minutes : 0 minutes 8 Min Rule Unit Check PT OP : 0 units PT Total Treatment Time Rehab : 0 minutes 8 Min Rule Unit Difference PT OP : 0 Meredith Menendez PTA 02/21/2023 17:53 [facility] 02-22-2023 NotePT Outpatient Progress Note Entered On: [...] bad days. Therapeutic Exercise : Yes Meredith Mneendez PTA 02/18/2023 16:40 EDT Therapeutic Exercise Custom [...] : Comment : x4 way and CW/CCW New Menendez PTAa 02/18/2023 16:40 EDT Meredith Menendez PTA 02/18/2023 16:40 EDT Meredith Menendez PTA 02/18/2023 16:40 EDT New Menendez PTAa 02/18/2023 16:40 EDT Exercise 9 Exercise : [...] PT Therapeutic Exercise Time : 0 minutes FITNESS STUDIES TEACHER Therapeutic Exercise Units : 0 units PT Total Timed Code Treatment Units : 0 units PT Total Timed Code Tx Minutes : 0 minutes 8 Min Rule Unit Check PT OP : 0 units PT Total Treatment Time Rehab : 0 minutes 8 Min Rule Unit Difference PT OP : 0 Meredith Menendez PTA - 02/18/2023 18:[facility] NotePT Outpatient Progress Note Entered [...] Red Not Performed : HEP Given : Erwin Aguiar PTe - 02/15/2023 8:13 EDT Trinitydudley PT Abdoulaye - 02/15/2023 8:13 EDT Cosme PT, Abdoulaye 02/15/2023 8:13 EDT Cosme PT, Abdoulaye 02/15/2023 8:13 EDT Exercise 5 Exercise 6 Exercise 7 Exercise 8 Exercise : Standing Baps Standing with relaxed foot Modified tandem stand Seated Dome Repetition/Time : next 1 minute 10x2 3x10 Resist or Assist : Not Performed : HEP Given : Cosme DAWN Abdoulaye - 02/15/2023 8:13 EDT Daphnerefugio PT Abdoulaye 02/15/2023 8:13 EDT Trinitydudley PT Abdoulaye 02/15/2023 8:13 EDT Cosme PT, Abdoulaye 02/15/2023 8:13 EDT Exercise 9 Exercise 10 Exercise : calcaneal distraction and mobs minisquat Repetition/Time : grade IIL Resist or Assist : Not Performed : X HEP Given : Yes Trinitytammirefugio LÓPEZ Abdoulaye 02/15/2023 8:13 EDT Daphnerefugio PT Abdoulaye 02/15/2023 8:13 EDT Education *Barriers To Learning : None evident *Teaching Method : Demonstration, Explanation Patient Education - PT Outpatient : Home exercise program - progression/modification Abdoulaye Aguiar PT - 02/22/2023 11:25 EDT Assessment PT Clinical Assessment Summary : Sebastián well, some discomfort right medial ankle; amb without boot. Cosme LÓPEZ Abdoulaye 02/22/2023 11:25 EDT Plan Frequency : 2 times per week *Duration : 8 Weeks *Treatments : Balance training, Manual therapy, Therapeutic exercises, Patient education, Gait training *Plan for Next Visit : Cont and progress as tolerated. Home Exercise Program/Other PT Treatment Provided : Initiated Treatment Plan/Goals Established with Patient/Caregiver : Yes Daphnerefugio LÓPEZ Abdoulaye 02/22/2023 11:25 EDT Time Spent with [...] : 0 Cosme PTAbdoulaye - 02/22/2023 11:25 [facility] 02-20-2023 NotePROCEDURE: XR ANKLE RT MIN 3 [...] Electronically authenticated by: JERZY MURRIETA Date: 2023-02-20 10:43[facility]04-14-2023 NotePT Outpatient Progress Note Entered On: [...] Minutes : 15 minutes Shon PALACIO Meredith 02/11/2023 17:49 EDT Education *Barriers To Learning : None evident *Teaching Method : Demonstration, Explanation Patient Education - PT Outpatient : N/A Shon PALACIO Meredith 02/11/2023 17:49 EDT Assessment PT Response to Treatment : Tolerated well PT Clinical Assessment Summary : Pt responded well to vasopneumatic treatment with decreased pain and edema following session. Shon PALACIO Meredith - 02/11/2023 17:49 EDT Plan Frequency : 2 [...] PT Therapeutic Exercise Time : 0 minutes FITNESS STUDIES TEACHER Therapeutic Exercise Units : 0 units PT Total Timed Code Treatment Units : 0 units PT Total Timed Code Tx Minutes : 0 minutes 8 Min Rule Unit Check PT OP : 0 units PT Total Treatment Time Rehab : 0 minutes 8 Min Rule Unit Difference PT OP : 0 Meredith Menendez [facility]TA - [facility] Progress Note [...] 0 Abdoulaye Aguiar PT - 02/08/2023 8:[facility] NotePT Outpatient Evaluation Entered On: [...] : Oriented x 4 Abdoulaye Aguiar PT 02/06/2023 8:20 EDT Past Medical History, Hospitalizations, [...] Single level home 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, 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, 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 Abdoulaye Aguiar PT [...] KE and KF x20 ea 1 minute Mirza Aguiar PTnie - 02/06/2023 8:20 EDT Dittrick PT, Abdoulaye [...] Ankle Inversion : 3+ Dittrick PT, Abdoulaye - 02/06/2023 8:20 EDT LE ROM Degrees LLE [...] Dittrick PT, Abdoulaye - 02/06/2023 8:20 EDT RLE Range of Motion [...] Characteristics PT : Sta (more content not included)...[facility]02-24-2023 NotePT Outpatient Progress Note Entered On: 12/28/2022 13:14 EST Performed On: 12/28/2022 12:57 EST by Abdoulaye Aguiar PT Review/Treatments Provided Rehab Reassessment : Reassessment Total Visit Count : 39 Visit Count Reviewed? : Yes Jail Goals Reviewed : Yes Pain Present : [...] Abdoulaye Aguiar PT - 12/28/2022 12:57 EST Jail Goals PT Outpt Pt Goal - grid Goal #1 PT Patient,Caregiver Goal : Walk normally without pain Status : Partially Met (Comment: Has episodes of significant pain due to impingement a Talocrural joint which limits her walking. [TrinitytammiAbdoulaye huff PT - 12/28/2022 12:57 EST] ) Date : 12/28/2022 EST DaphneAbdoulaye huff PT - 12/28/2022 12:57 EST General Function Goal #1 Goal #2 Goal #3 Goal : Ambulate community distances with normal gait mechanics Return to work Ascend and descend stairs with reciprocal pattern Duration : 6 Weeks 6 Weeks 6 Weeks Status : Partially Met Not met Partially Met Date : 12/28/2022 EST (Comment: See Walking goal comment; bone cyst/impingement preventing normalization of gait. [TrinitytammiAbdoulaye huff PT - 12/28/2022 12:57 EST] ) 12/28/2022 [...] current dysfunction, Home exercise program- reinforced compliance DaphneAbdoulaye huff PT - 12/28/2022 12:57 EST Assessment PT Clinical Assessment Summary : Patient still stuggling with impingement in anteromedial ankle. ROM for dorsiflexion has regressed because of this despite best efforts to improve this through manualtherapy and stretching. Further therapy at this point not justified, but will be needed if patient does have surgery to correct these issues. Cosme DAWN Abdoulaye - 12/28/2022 12:57 EST Plan Frequency : [...] Out : 09:45 EST PT Re-Evaluation Units, 47389 : 1 units PT Re-Evaluation Time, 48223 : 45 minutes PT Total Untimed Code Treatment Minutes : 45 minutes PT Total Treatment Time Rehab : 45 minutes Cosme DAWN, Abdoulaye - 12[facility]28/2022 12:[facility] Outpatient Progress Note Entered [...] EST Meredith Menendez PTA 12/21/2022 8:08 EST Exercise 5 Exercise 6 Exercise 7 Exercise 8 Exercise : Small knee bends for dynamic achilles stretch slant board stretch T- band Posterior Tib; Tib Anterior Gait training Repetition/Time : 10 30 x 3* 15x2 Resist or Assist : red Not Performed : X X Comment : *Knee extended and then bent shorter stride to normalize patter. Shon FITNESS STUDIES TEACHER, Meredith - 12/21/2022 8:08 EST Shon FITNESS STUDIES TEACHER, 12/21/2022 8:08 EST Shon FITNESS STUDIES TEACHER, 12/21/2022 8:08 EST Shon FITNESS STUDIES TEACHER, 12/21/2022 8:08 EST Exercise 9 Exercise 10 Exercise 11 Exercise 12 Exercise : Forward step downs Half dome PF/DF, INV/EV, CW/CCW Bilateral FWD stretch LAQ/ HS curls Repetition/Time : Resist or Assist : 2.5#/green Not Performed : X Comment : 2 then 4 tibial FWD translation Shon FITNESS STUDIES TEACHER, Meredith - 12/21/2022 8:08 EST Shon FITNESS STUDIES TEACHER, Meredith - 12/21/2022 8:08 EST Shon FITNESS STUDIES TEACHER, Meredith - 12/21/2022 8:08 EST Shon FITNESS STUDIES TEACHER, 12/21/2022 8:08 EST Exercise 13 Exercise 14 Exercise 15 Exercise 16 Exercise : distraction and t/s and subtalar mobs Upright bike True [place] Strap Calf Stretch KE andKF Repetition/Time : 10' 30x3 Resist or Assist : grade III 3 115# Not Performed : X X X Comment : Shon FITNESS STUDIES TEACHER, Meredith - 12/21/2022 8:08 EST Shon FITNESS STUDIES TEACHER, Meredith - 12/21/2022 8:08 EST Shon FITNESS STUDIES TEACHER, Meredith - 12/21/2022 8:08 EST Shon FITNESS STUDIES TEACHER, Meredith - 12/21/2022 8:08 EST Exercise 17 Exercise 18 Exercise 20 Exercise 21 Exercise : Half dome PWB alphabet 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, 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 NEW: 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 posterior tib; athletic tape to foot to relieve PF and to soleus WS with metronome Repetition/Time : done 10' Resist or Assist : Not Performed : X Comment : Shon FITNESS STUDIES TEACHER, Meredith - 12/21/2022 8:08 EST Shon PALACIO Meredith 12/21/2022 8:08 EST Shon HAKEEM Meredith 12/21/2022 8:08 EST Shon HAKEEM Meredith 12/21/2022 8:08 EST Exercise 22 Exercise : Gait trianing with metronome Repetition/Time : 15' Resist or Assist : Not Performed : X Comment : Shon PALACIO Meredith 12/21/2022 8:08 EST Education *Barriers To Learning : None evident *Teaching Method : Demonstration, Explanation Patient Education - PT Outpatient : N/A Shon PALACIO Meredith 12/21/2022 8:08 EST Assessment PT Response [...] with Patient/Caregiver : Yes Shon PALACIO Meredith 12/21/2022 8:08 EST Time Spent with Patient - Outpatient PT Time In : 00:00 EST PT Time Out : 00:00 EST PT Therapeutic Exercise Time : 0 minutes FITNESS STUDIES TEACHER Therapeutic Exercise Units : 0 units PT Total Timed Code Treatment Units : 0 units PT Total Timed Code Tx Minutes : 0 minutes 8 Min Rule Unit Check PT OP : 0 units PT Total Treatment Time Rehab : 0 minutes 8 Min Rule Unit Difference PT OP : 0 Shon PALACIO Meredith [facility]2022 [facility]PT Outpatient Progress Note Entered [...] increased edema. Therapeutic Exercise : Yes Shon FITNESS STUDIES TEACHER, Meredith 12/07/2022 13:29 EST Therapeutic Exercise Custom Therapeutic Exercise Exercise 1 Exercise 2 Exercise 3 Exercise 4 Exercise : NuStep joint mobs Talocrural and subtalar Anterior glides 1st MTP Slow reversals and hold relax stretch into extension of 1st MTP Repetition/Time : 5 Grade III 5' x10 Resist or Assist : 5 Not Performed : X Comment : Shon FITNESS STUDIES TEACHER, Meredith 12/07/2022 13:29 EST Shon FITNESS STUDIES TEACHER, Meredith 12/07/2022 13:29 EST Shon FITNESS STUDIES TEACHER, Meredith - 12/07/2022 13:29 EST Shon FITNESS STUDIES TEACHER, Meredith - 12/07/2022 13:29 EST Exercise 5 Exercise 6 Exercise 7 Exercise 8 Exercise : Small knee bends for dynamic achilles stretch slant board stretch T- band Posterior Tib; Tib Anterior Gait training Repetition/Time : 10 30 x 3* 15x2 Resist or Assist : red Not Performed : X Comment : *Knee extended and then bent shorter stride to normalize patter. Shon FITNESS STUDIES TEACHER, Meredith 12/07/2022 13:29 EST Shon FITNESS STUDIES TEACHER, Meredith 12/07/2022 13:29 EST Shon FITNESS STUDIES TEACHER, Meredith 12/07/2022 13:29 EST Shon FITNESS STUDIES TEACHER, Meredith 12/07/2022 13:29 EST Exercise 9 Exercise 10 Exercise 11 Exercise 12 Exercise : Forward step downs Half dome PF/DF, INV/EV, CW/CCW Bilateral FWD stretch LAQ/ HS curls Repetition/Time : Resist or Assist : 2.5#/green Not Performed : X Comment : 2 then 4 tibial FWD translation Shon FITNESS STUDIES TEACHER, Meredith 12/07/2022 13:29 EST Shon FITNESS STUDIES TEACHER, Meredith 12/07/2022 13:29 EST Shon FITNESS STUDIES TEACHER, Meredith 12/07/2022 13:29 EST Shon FITNESS STUDIES TEACHER, Meredith 12/07/2022 13:29 EST Exercise 13 Exercise 14 Exercise 15 Exercise 16 Exercise : distraction and t/s and subtalar mobs Upright bike True [place] Strap Calf Stretch KE andKF Repetition/Time : 10' 30x3 Resist or Assist : grade III 3 115# Not Performed : X X X Comment : Shon PALACIO, [facility] 12/07/2022 13:29 EST Shon PALACIO, [facility] 12/07/2022 13:29 EST Shon PALACIO, [facility] 12/07/2022 13:29 EST Shon PALACIO, [facility] 12/07/2022 13:29 EST Exercise 17 Exercise 18 Exercise 20 Exercise 21 Exercise : Half dome PWB alphabet 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, 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 NEW: 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 posterior tib; athletic tape to foot to relieve PF and to soleus WS with metronome Repetition/Time : done 10' Resist or Assist : Not Performed : X Comment : Shon PALACIO, [facility] 12/07/2022 13:29 EST Shon PALACIO, [facility] 12/07/2022 13:29 EST Shon PALACIO, [facility] 12/07/2022 13:29 EST Shon PALACIO, [facility] 12/07/2022 13:29 EST Exercise 22 Exercise : Gait trianing with metronome Repetition/Time : 15' Resist or Assist : Not Performed : X Comment : Shon PALACIO, [facility] 12/07/2022 13:29 EST Education *Barriers To Learning : None evident *Teaching Method : Demonstration, Explanation Patient Education - PT Outpatient : N/A Shon PALACIO, [facility] 12/07/2022 13:29 EST Assessment PT Response to Treatment : Tolerated well PT Clinical Assessment Summary : Pt demonstrated improvement in normalizing gait with progressive trials this visit. Educated on avoiding overcorrection of foot placement at weight acceptace. Shon PALACIO [facility] 12/07/2022 13:29 EST Plan Frequency : 2 times per week *Duration : 6 Weeks *Treatments : Balance training, Therapeutic exercises, Pain Management, Posture/Body mechanics training, Gait training *Plan for Next Visit : continue with gait training to further normalize. Treatment Plan/Goals Established with Patient/Caregiver : Yes Shon PALACIO [facility] 12/07/2022 13:29 EST Time Spent with Patient - Outpatient PT Time In : 00:00 EST PT Time Out : 00:00 EST PT Therapeutic Exercise Time : 0 minutes FITNESS STUDIES TEACHER Therapeutic Exercise Units : 0 units PT Total Timed Code Treatment Units : 0 units PT Total Timed Code Tx Minutes : 0 minutes 8 Min Rule Unit Check PT OP : 0 units PT Total Treatment Time Rehab : 0 minutes 8 Min Rule Unit Difference PT OP : 0 PMR Chart Review : Yes Meredith Menendez PTA - 12/07/2022 13:29 [facility] 12-12-2022 NotePT Outpatient Progress Note Entered On: 12/12/2022 13:29 EST Performed On: 12/12/2022 13:19 EST by Abdoulaye Augiar PT Review/Treatments Provided Total Visit Count : [...] then bent shorter stride to normalize patter. Daphnerick PT, Abdoulaye - 12/12/2022 13:19 EST Dittrick [...] tibial FWD translation Cosme PT, Abdoulaye - 12/12/2022 13:19 EST Trinityttrick PT, Abdoulaye - 12/12/2022 13:19 EST Trinityttrick PT, Abdoulaye - 12/12/2022 13:19 EST Trinityttrick PT, Abdoulaye - 12/12/2022 13:19 EST Exercise 13 Exercise 14 Exercise 15 Exercise 16 Exercise : distraction and t/s and subtalar mobs Upright bike True [place] Strap Calf Stretch KE andKF Repetition/Time : 10' 30x3 Resist or Assist : grade III 3 115# Not Performed : X X X Comment : Cosme PT, Abdoulaye - 12/12/2022 13:19 EST Dittrick PT, Abdoulaye - 12/12/2022 13:19 EST Dittrick PT, Abdoulaye - 12/12/2022 13:19 EST Dittrick PT, Abdoulaye - 12/12/2022 13:19 EST Exercise 17 Exercise 18 Exercise 20 Exercise 21 Exercise : Half dome PWB alphabet 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 Abdoulaye Aguiar PT - 12/12/2022 13:19 EST Plan Frequency : 2 times per week *Duration : 6 Weeks *Treatments : Balance training, Therapeutic exercises, Pain Management, Posture/Body mechanics training, Gait training *Plan for Next Visit : Cont per plan, this therapist will be back end of the month (more content not included)...[facility]02-01-2023 NotePT Outpatient Progress Note Entered On: 12/05/2022 10:08 EST Performed On: 12/05/2022 9:02 EST by Abdoulaye Aguiar PT Review/Treatments Provided Therapeutic Exercise : Yes Modalities : Yes Cosme ADWN Abdoulaye - 12/05/2022 13:22 EST Total Visit Count [...] - 12/05/2022 13:22 EST Abdoulaye Aguiar PT 12/05/2022 13:22 EST Dittrick PT, Abdoulaye - [...] t/s and subtalar mobs Upright bike True [place] Strap Calf Stretch KE andKF Repetition/Time : 10' 30x3 Resist or Assist : grade III 3 115# Not Performed : X X X Comment : oCsme PT, Abdoulaye - 12/05/2022 13:22 EST Dittrick PT, Abdoulaye - 12/05/2022 13:22 EST Dittrick PT, Abdoulaye - 12/05/2022 13:22 EST Dittrick PT, Abdoulaye - 12/05/2022 13:22 EST Exercise 17 Exercise 18 Exercise 20 Exercise 21 Exercise : Half dome PWB alphabet 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, 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 NEW: 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 posterior tib; athletic tape to foot to relieve PF and to soleus WS with metronome Repetition/Time : done 10' Resist or Assist : Not Performed : X Comment : Daphnerick PT, Abdoulaye - 12/05/2022 13:22 EST Dittrick PT, Abdoulaye - 12/05/2022 13:22 EST Dittrick PT, Abdoulaye - 12/05/2022 13:22 EST Dittrick PT, Abdoulaye - 12/05/2022 13:22 EST Exercise 22 Exercise : Gait trianing with metronome Repetition/Time : 15' Resist or Assist : Not Performed : X Comment : Cosme PT, Abdoulaye - 12/05/2022 13:22 EST Manual Therapy Manual Therapy Activity 1 Activity 2 Activity 3 Type/Technique : Myofascial/Soft tissue mobilization IASTM, Myofascial/Soft tissue mobilization Other: Cupping Region : Other: achilles, gastroc and soleus Other: plantar fascia Other: R calf and ankle Equipment/Medium : Deep prep Descriptor : 10 no no Trinitydudley LÓPEZ Abdoulaye - 12/05/2022 9:02 EST Cosme DAWN Abdoulaye - 12/05/2022 13:22 EST Abdoulaye Aguiar PT - 12/05/2022 13:22 EST Modalities Modalities Activity 1 Activity 2 Modality : Iontophoresis Ice massage Body Region : superior-ant talus ditto Settings : 14 hour patch Cosme DAWN Abdoulaye - 12/05/2022 13:22 EST Abdoulaye Aguiar PT - 12/05/2022 13:22 EST Education *Barriers To Learning : None evident *Teaching Method : Demonstration, Explanation Patient Education - PT Outpatient : Home exercise program - progression/modification Abdoulaye Aguiar PT 12/05/2022 13:22 EST Assessment PT Clinical Assessment Summary : Sebastián well; as patient was pretty sore in talo- crural joint, Ice massage and ionto done to superior talar area; still worked on calf to mobiize and stretch. Patient able to walk better after treatment. Abdoulaye Aguiar PT - 12/05/2022 13:22 EST Plan Frequency : 2 times per week *Duration : 6 Weeks *Treatments : Balanc (more content not included)...[facility]02-01-2023 NotePT Outpatient Progress Note Entered [...] : Yes Manual Therapy : Yes Shon FITNESS STUDIES TEACHER, Meredith - 11/30/2022 16:41 EST Therapeutic Exercise Custom Therapeutic Exercise Exercise 1 Exercise 2 Exercise 3 Exercise 4 Exercise : NuStep joint mobs Talocrural and subtalar Anterior glides 1st MTP Slow reversals and hold relax stretch into extension of 1st MTP Repetition/Time : 5 Grade III 5' x10 Resist or Assist : 5 Not Performed : X Comment : Shon FITNESS STUDIES TEACHER, Meredith 11/30/2022 16:41 EST Shon FITNESS STUDIES TEACHER, Meredith 11/30/2022 16:41 EST Shon FITNESS STUDIES TEACHER, Meredith - 11/30/2022 16:41 EST Shon FITNESS STUDIES TEACHER, 11/30/2022 16:41 EST Exercise 5 Exercise 6 Exercise 7 Exercise 8 Exercise : Small knee bends for dynamic achilles stretch slant board stretch Eccentric T-band Posterior Tib Gait training Repetition/Time : 10 30 x 3* 10x2 HEP Resist or Assist : red Not Performed : X X Comment : *Knee extended and then bent shorter stride to normalize patter. Shon FITNESS STUDIES TEACHER, Meredith - 11/30/2022 16:41 EST Shon FITNESS STUDIES TEACHER, Meredith 11/30/2022 16:41 EST Shon FITNESS STUDIES TEACHER, Meredith - 11/30/2022 16:41 EST Shon FITNESS STUDIES TEACHER, Meredith - 11/30/2022 16:41 EST Exercise 9 Exercise 10 Exercise 11 Exercise 12 Exercise : Forward step downs Half dome PF/DF, INV/EV, CW/CCW Bilateral FWD stretch LAQ/ HS curls Repetition/Time : Resist or Assist : 2.5#/green Not Performed : X Comment : 2 then 4 tibial FWD translation Shon FITNESS STUDIES TEACHER, Meredith 11/30/2022 16:41 EST Shon FITNESS STUDIES TEACHER, Meredith 11/30/2022 16:41 EST Shon FITNESS STUDIES TEACHER, Meredith - 11/30/2022 16:41 EST Shon FITNESS STUDIES TEACHER, Meredith - 11/30/2022 16:41 EST Exercise 14 Exercise 15 Exercise 16 Exercise 17 Exercise : Upright bike True [place] Strap Calf Stretch KE and KF Half [...] Exercise 22 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, 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 NEW: 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 posterior tib; athletic tape to foot to relieve PF and to soleus WS with metronome Gait trianing with metronome Repetition/Time : done 10' 15' Resist or Assist : Not Performed : X X Comment : Shon PALACIO, Meredith 11/30/2022 16:41 EST Shon PALACIO, Meredith 11/30/2022 16:41 EST Shon PALACIO, Meredith 11/30/2022 16:41 EST Shon PALACIO, Meredith 11/30/2022 16:41 EST Manual Therapy Manual Therapy [...] EST Shon PALACIO, Meredith 11/30/2022 16:41 EST Education *Barriers To Learning : None evident *Teaching Method : Demonstration, Explanation Patient Education - PT Outpatient : N/A Shon PALACIO Meredith 11/30/2022 16:41 EST Assessment PT Response to Treatment : Tolerated well PT Clinical Assessment Summary : Pt demonstrated significant improvement in gait mechanics this session. Pt was able to keep symmetrical timing of stride in sync with metronome beats. Shon PALACIO Meredith 11/30/2022 16:41 EST Plan Frequency : [...] PT Therapeutic Exercise Time : 0 minutes FITNESS STUDIES TEACHER Therapeutic Exercise Units : 0 units PT Total Timed Code Treatment Units : 0 units PT Total Timed Code Tx Minutes : 0 minutes 8 Min Rule Unit Check PT OP : 0 units PT Total Treatment Time Rehab : 0 minutes 8 Min Rule Unit Difference PT OP : 0 Meredith Menendez PTA - [facility] Progress [facility] Entered [...] Abdoulaye - 11/28/2022 8:57 EST Dittrick PT, Abodulaye - 11/28/2022 8:57 EST Dittrick PT, Abdoulaye - 11/28/2022 8:57 EST Exercise 18 Exercise 20 Exercise 21 Exercise 22 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, 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 NEW: 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 posterior tib; athletic tape to foot to relieve PF and to soleus WS with metronome Gait trianing with metronome Repetition/Time : done 10' 15' Resist or Assist : Not Performed : X X Comment : Abdoulaye Aguiar PT - 11/28/2022 8:57 EST Abdoulaye Aguiar PT - 11/28/2022 8:57 EST Cosme DAWN, Abdoulaye - 11/28/2022 8:57 EST Abdoulaye Aguiar PT [...] Abdoulaye Aguiar PT - 11/28/2022 8:57 EST Modalities Modalities Activity [...] : Anatomy, Body mechanics Abdoulaye Aguiar PT - 11/28/2022 8:57 EST Assessment PT Clinical Assessment Summary : Sebastián well; patient had many questions regarding next step regardingbone cyst; wants to pursue 2nd opinion before having cyst worked on. Used kinesiotape to reduce stress on achilles and taping of foot for fascia. Abdoulaye Aguiar PT 11/28/2022 8:57 EST Plan (more content not included)...[facility]01-25-2023 NotePT Outpatient Progress Note Entered On: 11/23/2022 17:22 EST Performed On: 11/23/2022 17:22 EST by Meredith Menendez PTA Review/Treatments Provided Subjective : Pt is experiencing increased plantar fascia pain today. Pt expresses frustration with recovery. Therapeutic Exercise : Yes Manual Therapy : Yes Meredith Menendez PTA 11/27/2022 13:05 EST Total Visit Count : [...] 2 then 4 tibial FWD translation Shon FITNESS STUDIES TEACHER, Meredith - 11/27/2022 13:05 EST Shon FITNESS STUDIES TEACHER, Meredith - 11/27/2022 13:05 EST Shon FITNESS STUDIES TEACHER, 11/27/2022 13:05 EST Shon FITNESS STUDIES TEACHER, 11/27/2022 13:05 EST Exercise 14 Exercise 15 Exercise 16 Exercise 17 Exercise : Upright bike True [place] Strap Calf Stretch KE and KF Half dome PWB alphabet Repetition/Time : 30x3 Resist or Assist : 3 115# Not Performed : X X X Comment : Shon FITNESS STUDIES TEACHER, Meredith - 11/27/2022 13:05 EST Shon FITNESS STUDIES TEACHER, 11/27/2022 13:05 EST Shon FITNESS STUDIES TEACHER, 11/27/2022 13:05 EST Shon FITNESS STUDIES TEACHER, 11/27/2022 13:05 EST Exercise 18 Exercise 20 Exercise 21 Exercise 22 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, 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 NEW: 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 posterior tib; athletic tape to foot to relieve PF and to soleus WS with metronome Gait trianing with metronome Repetition/Time : done 10' 15' Resist or Assist : Not Performed : Comment : Shon FITNESS STUDIES TEACHER, Meredith - 11/27/2022 13:05 EST Shon FITNESS STUDIES TEACHER, Meredith - 11/27/2022 13:05 EST Shon FITNESS STUDIES TEACHER, Meredith - 11/27/2022 13:05 EST Shon FITNESS STUDIES TEACHER, Meredith - 11/27/2022 13:05 EST Manual Therapy Manual Therapy Activity 1 Activity 2 Activity 3 Type/Technique : Myofascial/Soft tissue mobilization IASTM, Myofascial/Soft tissue mobilization Other: Cupping Region : Other: achilles, gastroc and soleus Other: plantar fascia Other: R calf and ankle Equipment/Medium : Deep prep Descriptor : 15 Shon FITNESS STUDIES TEACHER, Meredith - 11/27/2022 13:05 EST Shon FITNESS STUDIES TEACHER, Meredith - 11/27/2022 13:05 EST Shon FITNESS STUDIES TEACHER, 11/27/2022 13:05 EST Education *Barriers To Learning : None evident *Teaching Method : Demonstration, Explanation Patient Education - PT Outpatient : N/A Meredith Menendez PTA - 11/27/2022 13:05 EST Assessment PT Response to Treatment : Tolerated well PT Clinical Assessment Summary : Pt educated on focusing on gait mechanics and strengthening techniques. Meredith Menendez PTA - 11/27/2022 13:05 EST Plan Frequency : 2 times per week *Duration : 6 Weeks *Treatments : Balance training, Therapeutic exercises, Pain Management, Posture/Body mechanics training, Gait training *Plan for Next Visit : Assess HEP Treatment Plan/Goals Established with Patient/Caregiver : Yes Meredith Menendez PTA - 11/27/2022 13:05 EST Time Spent with Patient - Outpatient PT Time In : 00:00 EST PT Time Out : 00:00 EST PT Therapeutic Exercise Time : 0 minutes FITNESS STUDIES TEACHER Therapeutic Exercise Units : 0 units PT Total Timed Code Treatment Units : 0 units PT Total Timed Code Tx Minutes : 0 minutes 8 Min Rule Unit Check PT OP : 0 units PT Total Treatment Time Rehab : 0 minutes 8 Min Rule Unit Difference PT OP : 0 Meredith Menendez PTA - 11/27/2022 [facility] Out[facility] Progress Note Entered [...] X Comment : not performed 09/21/22 Shon FITNESS STUDIES TEACHER, [facility] 10/22/2022 18:43 EST Shon FITNESS STUDIES TEACHER, [facility] 10/22/2022 18:43 EST Shon FITNESS STUDIES TEACHER, [facility] 10/22/2022 18:43 EST Shon FITNESS STUDIES TEACHER, Meredith 10/22/2022 18:43 EST Exercise 5 Exercise 6 Exercise 7 Exercise 8 Exercise : Small knee bends for dynamic achilles stretch slant board stretch Eccentric T-band Posterior Tib Gait training Repetition/Time : 10 30 x 3* 10x2 HEP Resist or Assist : red Not Performed : Comment : *Knee extended and then bent shorter stride to normalize patter. Shon FITNESS STUDIES TEACHER, [facility] 10/22/2022 18:43 EST Shon FITNESS STUDIES TEACHER, [facility] 10/22/2022 18:43 EST Shon FITNESS STUDIES TEACHER, [facility] 10/22/2022 18:43 EST Shon FITNESS STUDIES TEACHER, [facility] 10/22/2022 18:43 EST Exercise 9 Exercise 10 Exercise 11 Exercise 12 Exercise : Forward step downs Half dome PF/DF, INV/EV, CW/CCW Bilateral FWD stretch LAQ/ HS curls Repetition/Time : Resist or Assist : 2.5#/green Not Performed : Comment : 2 then 4 tibial FWD translation Shon FITNESS STUDIES TEACHER, [facility] 10/22/2022 18:43 EST Shon FITNESS STUDIES TEACHER, [facility] 10/22/2022 18:43 EST Shon FITNESS STUDIES TEACHER, [facility] 10/22/2022 18:43 EST Shon FITNESS STUDIES TEACHER, [facility] 10/22/2022 18:43 EST Exercise 14 Exercise 15 Exercise 16 Exercise 17 Exercise : Upright bike True [place] Strap Calf Stretch KE and KF Half dome PWB alphabet Repetition/Time : 30x3 Resist or Assist : 3 115# Not Performed : Comment : Shon FITNESS STUDIES TEACHER, 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 Repetition/Time : 15' Resist or Assist : Not Performed : Comment : [facility] 10/22/2022 18:43 EST Shon PALACIO [facility] 10/22/2022 18:43 EST Shon PALACIO [facility] 10/22/2022 18:43 EST Manual Therapy Manual Therapy Activity 1 Type/Technique : Myofascial/Soft tissue mobilization Region : Other: achilles, gastroc and soleus Equipment/Medium : Deep prep Descriptor : 15 Shon PALACIO Meredith 10/22/2022 18:43 EST Education *Barriers To Learning : None evident *Teaching Method : Demonstration, Explanation Patient Education - PT Outpatient : N/A Shon PALACIO Meredith 10/22/2022 18:43 EST Assessment PT Response to Treatment : Tolerated well PT Clinical Assessment Summary : Unseccessful with chosing a shoe for improved gait; bases were alltoo thick, causing supination. Pt advised to purchase minimal barefoot shoes. Meredith Menendez PTA 10/22/2022 18:43 EST Plan Frequency : 2 times per week *Duration : 6 Weeks *Treatments : Balance training, Therapeutic exercises, Pain Management, Posture/Body mechanics training, Gait training *Plan for Next Visit : assess shoes after purchase. Treatment Plan/Goals Established with Patient/Caregiver : Yes Meredith Menendez PTA 10/22/2022 18:43 EST Time Spent with Patient - Outpatient PT Time In : 00:00 EST PT Time Out : 00:00 EST PT Therapeutic Exercise Time : 0 minutes FITNESS STUDIES TEACHER Therapeutic Exercise Units : 0 units PT Total Timed Code Treatment Units : 0 units PT Total Timed Code Tx Minutes : 0 minutes 8 Min Rule Unit Check PT OP : 0 units PT Total Treatment Time Rehab : 0 minutes 8 Min Rule Unit Difference PT OP : 0 [facility] Outpatient Progress Note Entered [...] 2 then 4 tibial FWD translation Shon FITNESS STUDIES TEACHER, [facility] 10/22/2022 11:06 EST Shon FITNESS STUDIES TEACHER, [facility] 10/22/2022 11:06 EST Shon [facility] 10/22/2022 11:06 EST Shon [facility] 10/22/2022 11:06 EST Exercise 14 Exercise 15 Exercise 16 Exercise 17 Exercise : Upright bike True [place] Strap Calf Stretch KE and KF Half dome PWB alphabet Repetition/Time : 30x3 Resist or Assist : 3 115# Not Performed : Comment : Shon FITNESS STUDIES TEACHER, 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 NEW: 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 posterior tib; athletic tape to foot to relieve PF and to soleus Gait trianing with B walking sticks Repetition/Time : done Resist or Assist : Not Performed : Comment : [facility] 11:06 EST Shon [facility] 10/22/2022 11:06 EST Shon [facility] 10/22/2022 11:06 EST Manual Therapy Manual Therapy Activity 1 Type/Technique : Myofascial/Soft tissue mobilization Region : Other: achilles, gastroc and soleus Equipment/Medium : Deep prep Descriptor : 15 Shon [facility] 10/22/2022 11:06 EST Modalities Modalities Activity 1 Activity 2 Activity 3 Modality : Iontophoresis Ultrasound Hot packs Body Region : Post Tib under MMall Post Tib L soleus and ankle Settings : 14 hr patch 1.5 w/cm, 50% Minutes : 10 minutes Shon [facility] 10/22/2022 11:06 EST Shon [facility] 10/22/2022 11:06 EST Shon FITNESS STUDIES TEACHERMeredith - 10/22/2022 11:06 EST Education *Barriers To Learning : None evident *Teaching Method : Demonstration, Explanation Patient Education - PT Outpatient : N/A Shon HAKEEMMeredith - 10/22/2022 11:06 EST Assessment PT Response [...] PT Therapeutic Exercise Time : 0 minutes FITNESS STUDIES TEACHER Therapeutic Exercise Units : 0 units PT Total Timed Code Treatment Units : 0 units PT Total Timed Code Tx Minutes : 0 minutes 8 Min Rule Unit Check PT OP : 0 units PT Total Treatment Time Rehab : 0 minutes 8 Min Rule Unit Diff (more content not included)...[facility]01-13-2023 NotePT Outpatient Progress Note Entered [...] Not Performed : X Comment : Shon FITNESS STUDIES TEACHER, Meredith - 2022 10:16 EST Shon FITNESS STUDIES TEACHER, Meredith - 2022 10:16 EST Shon FITNESS STUDIES TEACHER, 2022 10:16 EST Shon FITNESS STUDIES TEACHER, 2022 10:16 EST Exercise 5 Exercise 6 Exercise 7 Exercise 8 Exercise : Small knee bends for dynamic achilles stretch slant board stretch Eccentric T-band Posterior Tib Gait training Repetition/Time : 10 30 x 3* 10x2 HEP Resist or Assist : red Not Performed : X X Comment : *Knee extended and then bent shorter stride to normalize patter. Shon FITNESS STUDIES TEACHER, Meredith - 2022 10:16 EST Shon FITNESS STUDIES TEACHER, 2022 10:16 EST Shon FITNESS STUDIES TEACHER, 2022 10:16 EST Shon FITNESS STUDIES TEACHER, Meredith - 2022 10:16 EST Exercise 9 Exercise 10 Exercise 11 Exercise 12 Exercise : Forward step downs Half dome PF/DF, INV/EV, CW/CCW Bilateral FWD stretch LAQ/ HS curls Repetition/Time : Resist or Assist : 2.5#/green Not Performed : X Comment : 2 then 4 tibial FWD translation Shon FITNESS STUDIES TEACHER, Meredith - 2022 10:16 EST Shon FITNESS STUDIES TEACHER, Meredith - 2022 10:16 EST Shon FITNESS STUDIES TEACHER, Meredith - 2022 10:16 EST Shon FITNESS STUDIES TEACHER, Meredith - 2022 10:16 EST Exercise 14 Exercise 15 Exercise 16 Exercise 17 Exercise : Upright bike True [place] Strap Calf Stretch KE and KF Half dome PWB alphabet Repetition/Time : 30x3 Resist or Assist : 3 115# Not Performed : X X Comment : Shon FITNESS STUDIES TEACHER, Meredith - 2022 10:16 EST Shon FITNESS STUDIES TEACHER, Meredith - 2022 10:16 EST Shon FITNESS STUDIES TEACHER, Meredith - 2022 10:16 EST Shon PALACIO Meredith 2022 10:16 EST Exercise 18 Exercise 20 Exercise 21 Exercise 22 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 Shon HAKEEM Meredith 2022 10:16 EST Plan Frequency : 2 times per week *Duration : 6 Weeks *Treatments : Balance training, Therapeutic exercises, Pain Management, Posture/Body mechanics training, Gait training *Plan for Next Visit : continue gait work Treatment Plan/Goals Established with Patient/Caregiver : Yes Shon HAKEEM Meredith 2022 10:16 EST Time Spent with Patient - Outpatient PT Time In : 00:00 EST PT Time Out : 00:00 EST PT Therapeutic Exercise Time : 0 minutes FITNESS STUDIES TEACHER Therapeutic Exercise Units : 0 units PT Total Timed Code Treatment Units : 0 units PT Total Timed Code Tx Minutes : 0 minutes 8 Min Rule Unit Check PT OP : 0 units PT Total Treatment Time Rehab : 0 minutes 8 Min Rule Unit Difference PT OP : 0 Shon HAKEEM Meredith 2022 10:[facility] Out[facility] Progress Note Entered On: 11/16/2022 10:17 EST Performed On: 11/16/2022 9:01 EST by Dittrick PT, Abdoulaye Review/Treatments Provided Total Visit Count : 31 [...] Therapy : Yes Modalities : Yes Cosme DAWN Abdoulaye - 11/16/2022 9:01 EST Pain Assessment Pain [...] 5 Not Performed : X Comment : Erwin Aguiar PTe - 11/16/2022 9:01 EST Cosme PT, Abdoulaye - 11/16/2022 9:01 EST Cosme PT, Abdoulaye - 11/16/2022 9:01 EST Cosme PT, Abdoulaye - 11/16/2022 9:01 EST Exercise 5 Exercise 6 Exercise 7 Exercise 8 Exercise : Small knee bends for dynamic achilles stretch slant board stretch Eccentric T-band Posterior Tib Gait training Repetition/Time : 10 30 x 3* 10x2 HEP Resist or Assist : red Not Performed : X X Comment : *Knee extended and then bent shorter stride to normalize patter. Mirza Aguiar PTnie - 11/16/2022 9:01 EST Cosme PT, Abdoulaye - 11/16/2022 9:01 EST Cosme PT, Abdoulaye - 11/16/2022 9:01 EST Cosme PT, Abdoulaye - 11/16/2022 9:01 EST Exercise 9 Exercise 10 Exercise 11 Exercise 12 Exercise : Forward step downs Half dome PF/DF, INV/EV, CW/CCW Bilateral FWD stretch LAQ/ HS curls Repetition/Time : Resist or Assist : 2.5#/green Not Performed : X Comment : 2 then 4 tibial FWD translation Trinitydudley PT, Abdoulaye - 11/16/2022 9:01 EST Dittrick PT, Abdoulaye - 11/16/2022 9:01 EST Trinityttrick PT, Abdoulaye - 11/16/2022 9:01 EST Dittrick PT, Abdoulaye - 11/16/2022 9:01 EST Exercise 14 Exercise 15 Exercise 16 Exercise 17 Exercise : Upright bike True [place] Strap Calf Stretch KE and KF Half [...] Exercise 22 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 Trinitydudley DAWN Abdoulaye - 11/16/2022 9:01 EST Plan [...] 09:47 EST PT Ther (more content not included)...[facility]01-13-2023 NotePT Outpatient Progress Note Entered [...] work on WS and improved pattern. Shon PALACIO, Meredith 11/09/2022 17:23 EST Therapeutic Exercise : Yes Shon PALACIO, Meredith 11/09/2022 9:50 EST Therapeutic Exercise Custom Therapeutic Exercise Exercise 1 Exercise 2 Exercise 3 Exercise 4 Exercise : NuStep joint mobs Talocrural and subtalar Anterior glides 1st MTP Slow reversals and hold relax stretch into extension of 1st MTP Repetition/Time : 5 Grade III 5' x10 Resist or Assist : 5 Not Performed : X X Comment : Shon PALACIO, Meredith 11/09/2022 9:50 EST Shon FITNESS STUDIES TEACHER, Meredith 11/09/2022 9:50 EST Shon FITNESS STUDIES TEACHER, Meredith 11/09/2022 9:50 EST Shon FITNESS STUDIES TEACHER, Meredith 11/09/2022 9:50 EST Exercise 5 Exercise 6 Exercise 7 Exercise 8 Exercise : Small knee bends for dynamic achilles stretch slant board stretch Eccentric T-band Posterior Tib Gait training Repetition/Time : 10 30 x 3* 10x2 HEP Resist or Assist : red Not Performed : X X Comment : *Knee extended and then bent shorter stride to normalize patter. Shon FITNESS STUDIES TEACHER, Meredith 11/09/2022 9:50 EST Shon FITNESS STUDIES TEACHER, Meredith 11/09/2022 9:50 EST Shon FITNESS STUDIES TEACHER, Meredith 11/09/2022 9:50 EST Shon FITNESS STUDIES TEACHER, Meredith 11/09/2022 9:50 EST Exercise 9 Exercise 10 Exercise 11 Exercise 12 Exercise : Forward step downs Half dome PF/DF, INV/EV, CW/CCW Bilateral FWD stretch LAQ/ HS curls Repetition/Time : Resist or Assist : 2.5#/green Not Performed : X Comment : 2 then 4 tibial FWD translation Shon FITNESS STUDIES TEACHER, Meredith 11/09/2022 9:50 EST Shon FITNESS STUDIES TEACHER, Meredith 11/09/2022 9:50 EST Shon FITNESS STUDIES TEACHER, Meredith 11/09/2022 9:50 EST Shon FITNESS STUDIES TEACHER, Meredith - 11/09/2022 9:50 EST Exercise 14 Exercise 15 Exercise 16 Exercise 17 Exercise : Upright bike True [place] Strap Calf Stretch KE and KF Half dome PWB alphabet Repetition/Time : 30x3 Resist or Assist : 3 115# Not Performed : X X Comment : Shon FITNESS STUDIES TEACHER, Meredith 11/09/2022 9:50 EST Shon FITNESS STUDIES TEACHER, Meredith 11/09/2022 9:50 EST Shon FITNESS STUDIES TEACHER, Meredith - 11/09/2022 9:50 EST Shon FITNESS STUDIES TEACHER, Meredith - 11/09/2022 9:50 EST Exercise 18 Exercise 20 Exercise 21 Exercise 22 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, 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 NEW: 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 posterior tib; athletic tape to foot to relieve PF and to soleus WS with metronome Gait trianing with metronome Repetition/Time : done 10' 15' Resist or Assist : Not Performed : Comment : Shon FITNESS STUDIES TEACHER, Meredith - 11/09/2022 9:50 EST Shon FITNESS STUDIES TEACHER, Meredith 11/09/2022 9:50 EST Shon FITNESS STUDIES TEACHER, Meredith 11/09/2022 9:50 EST Shon FITNESS STUDIES TEACHER, Meredith 11/09/2022 9:50 EST Manual Therapy Manual Therapy Activity 1 Activity 2 Activity 3 Type/Technique : Myofascial/Soft tissue mobilization IASTM, Myofascial/Soft tissue mobilization Other: Cupping Region : Other: achilles, gastroc and soleus Other: plantar fascia Other: R calf and ankle Equipment/Medium : Deep prep Descriptor : 15 5' static Shon FITNESS STUDIES TEACHER, Meredith 11/09/2022 17:23 EST Shon FITNESS STUDIES TEACHER, Meredith 11/09/2022 17:23 EST Shon FITNESS STUDIES TEACHER, Meredith 11/09/2022 17:23 EST Modalities Modalities Activity 1 Modality : Iontophoresis Body Region : R Plantar fascia Shon FITNESS STUDIES TEACHER, Meredith 11/09/2022 17:23 EST Education *Barriers To Learning : None evident *Teaching Method : Demonstration, Explanation Patient Education - PT Outpatient : N/A Shon FITNESS STUDIES TEACHER, Meredith 11/09/2022 17:23 EST Assessment PT Response [...] 00:00 EST PT Time (more content not included)...[facility]01-11-2023 NotePROCEDURE: XR FOOT RT MIN [...] Electronically authenticated by: JERZY MURRIETA Date: 2022-11-14 13:42[facility]01-11-2023 NotePROCEDURE: XR FOOT RT MIN 3 [...] Electronically authenticated by: JERZY MURRIETA Date: 2022-11-14 13:42[facility]12-30-2022 NotePT Outpatient Progress Note Entered On: [...] Exercise 17 Exercise : Upright bike True [place] Strap Calf Stretch KE and KF Half [...] Exercise 22 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, 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 Cosme PTAbdoulaye - 11/02/2022 14:13 EST Plan Frequency : [...] 09:00 EST PT T (more content not included)...[facility]12-30-2022 NotePT Outpatient Progress Note Entered [...] prep Descriptor : 15 Meredith Menendez PTA 10/26/2022 9:49 EST Gait Analysis PMR Ambulation Comments : Assessment of gait with various Minimal Barefoot shoes for proper mechanics and stability. Pt demonstrates improved alignment and decreased supination with WBing. Pt educated on discontinued use of insert to improve contact. Shon HAKEEM Meredith 10/26/2022 9:49 EST Education *Barriers To Learning : None evident *Teaching Method : Demonstration Patient Education - PT Outpatient : N/A Shon HAKEEM Meredith 10/26/2022 9:49 EST Assessment PT Response [...] with Patient/Caregiver : Yes Shon PALACIO Meredith 10/26/2022 9:49 EST Time Spent with Patient - Outpatient PT Time In : 00:00 EST PT Time Out : 00:00 EST PT Soft Tissue Mobility Time : 0 minutes FITNESS STUDIES TEACHER Soft Tissue Mobility Units : 0 units PT Total Timed Code Treatment Units : 0 units PT Total Timed Code Tx Minutes : 0 minutes 8 Min Rule Unit Check PT OP : 0 units PT Total Treatment Time Rehab : 0 minutes 8 Min Rule Unit Difference PT OP : 0 ShonMeredith mora PTA 10/26/2022 9:[facility] History of Present illness NarrativePatient [...] states sheusually has an infection after completing antibiotic.[facility] Work Phone: [phone]) 603-335210-30-2022 History of Present illness NarrativePatient is a [...] sheusually has an infection after completing antibiotic.[facility] Work Phone: 1(842) 953-170409-21-2022 NotePROCEDURE: XR ANKLE RT MIN 3 VIEWS [...] Electronically authenticated by: JERZY MURRIETA Date: 2022-07-25 17:41[facility]06-23-2022 NotePROCEDURE: XR ANKLE RT MIN 3 [...] Electronically authenticated by: JERZY MURRIETA Date: 2022-04-26 09:59[facility]02-14-2022 History of Present illness Narrative* Patient [...] once a week for right ankle pain. [facility] Work Phone: 1(755) 474-658001-01-2022 History of Present illness Narrative* 41y female [...] have any effect on her flank pain. [facility] [address] Work Phone: 1(906) 192-882001-01-2022 History of Present illness Narrative* 41y female [...] have any effect on her flank pain. -[facility] Work Phone: [phone]) 540-152506-01-2020 History general Narrative - Reported* Type Description Date Surgical History dislocated talus-[facility] 04/05 020 Surgical History total talus implant-Dr Vance 12/2020 Surgical History plantar fasciotomy 04/2021 Surgical History ankle arthroplasty, tenotomy, p lantar fascia 01/2023 Hospitalization History see above Dr. Jerry's Sm[facility] Move Other Evaluation noteNo InformationN[facility] Other Evaluation note* Diagnosis Avascular necrosis of right talus (CMS/HCC)- Primary Benign essential hypertension Essential hypertension, benign Morbid obesity with body mass index (BMI) of 50.0 to 59.9 in adult (CMS/HCC) documented in this encounter [facility] Work Phone: Evaluation note* Diagnosis Bronchitis- Primary Bronchitis, not specified as acute or chronic documented in this encounter [facility] Work Phone: Evaluation note* Diagnosis Adjustment disorder with mixed anxiety and depressed mood- Primary Weakness of both lower extremities Bilateral hip pain Pain in joint, pelvic region and thigh documented in this encounter [facility] Work Phone: History of Present illness NarrativeVery [...] has been tearful and [facility] for [facility] Work [facility]: History of Present illness [...] will be going on vacation tomorrow to [place]. [facility] Work Phone: History of Present [...] will be going on vacation tomorrow to [place]. [facility] Work Phone: History of Present [...] appointment with her surgeon luis alfredo her options. She is not ready for [...] * Patient would like a referral to ob-planning coordinator. * Patient reports she has lost weight 55 lbs since March with [employer]. [facility] Work Phone: History of Present [...] appointment with her surgeon luis alfredo her options. She is not ready for [...] * Patient would like a referral to ob-planning coordinator. * Patient reports she has lost weight 55 lbs since March with [employer]. [facility] Work Phone: History of Present [...] * Patient would like a referral to ob-planning coordinator. * Patient reports she has lost weight 55 lbs since March with [employer]. -[facility] Work Phone: History of Present [...] both legs. Applying heat helps a little. [facility] Work Phone: History of Present [...] both legs. Applying heat helps a little. [facility] Work Phone: Reason for referral (narrative)* Consultation (Routine) - Pending Review Specialty Diagnoses / Procedures Referred By Aaron gilliam Referred To Contact Physical Therapy Diagnoses B[place] [id number] [place] [phone] Referral ID Status Reason Start Date Expiration Date Visits Requested Visits Authorized [id number] Pending Review Specialty Services Required 12/27/2023 12/26/2024 1 1 [facility] Work Phone: Summary Purpose Family History [...] XR chest 2 [place] [address] [facility] [address] [place] [address] Referral ID Status Reason Start Date Expiration Date Visits Requested Visits Authorized [id number] Authorized Perform Procedure 3 10/20/2024 1 1 Additional Source Comments INFORMATION SOURCE (unrecogn ized section and content) DATE CREATED AUTHOR 10/11/2020 [employer] DATE CREATED AUTHOR AUTHOR'S ORGANIZ ATION 11/19/2021 [facility] DATE CREATED AUTHOR AUTHOR'S ORGANIZ ATION 01/25/2022 [facility] DATE CREATED AUTHOR AUTHOR'S ORGANIZ ATION 09/12/2022 [facility] DATE CREATED AUTHOR AUTHOR'S ORGANIZ ATION 09/16/2022 [employer] DATE CREATED AUTHOR AUTHOR'S ORGANIZ ATION 03/09/2023 [facility] DATE CREATED AUTHOR AUTHOR'S ORGANIZ ATION 07/19/2023 [facility] DATE CREATED AUTHOR AUTHOR'S ORGANIZ ATION 10/26/2023 [facility] DATE CREATED AUTHOR AUTHOR'S ORGANIZ ATION 01/04/2024 [facility] REASON FOR VISIT (unrecogniz ed section [...] Care Teams (unrecognized sec tion and content) Product Test Engineer Relationship Specialty [place] [address] [place] [address] PCP - General 06/01/13 [place] [address] [address] [place] [address] PCP - MMO ACO PCP 01/02/23 Product Test Engineer Relationship Specialty [place] [address] [address] [address] PCP - General 06/01/13 [place] [address] [address] [place] [id number] PCP - MMO ACO PCP 01/02/23 Product Test Engineer Relationship Specialty Start [place] [address] [place] [phone] PCP - General 06/01/13 [place] [address] [address] [address] PCP - MMO ACO PCP 11/04/23 FOR [...] BE BASED ON THE PRIMARY CLINICAL RECORDS. [facility] 20x200 [facility]. provides no warranty or guarantee of the accuracy or completeness of information in this document.
[2024-01-28] MEDS: ALPRAZOLAM 0.25 MG TABLET PO (14:43)
[2024-01-28] MEDS: KETOROLAC TROMETHAMINE 30 MG/ML VIAL IVP ×2 (15:25→21:14)
[2024-01-28 15:39] LABS: Basophils Percent Auto 0.2 % (0.2-2.0); Eosinophils Absolute Auto 0.1 10^3/uL (0.0-0.7); Eosinophils Percent Auto 0.5 % (0.9-7.0); Hematocrit 35.2 % (36.0-48.0); Hemoglobin 10.8 g/dL (12.0-16.0); Immature Granulocytes Abs Auto 0.02 10^3/uL (0.00-0.03); Immature Granulocytes Pct Auto 0.2 % (0.0-0.5); Lymphocytes Absolute Auto 2.9 10^3/uL (1.2-3.8); Lymphocytes Percent Auto 29.5 % (20.5-60.0); Mean Corpuscular HGB Conc 30.7 g/dL (29.9-35.2); Mean Corpuscular Hemoglobin 28.3 pg (26.7-34.0); Mean Corpuscular Volume 92.1 fL (81.0-99.0); Monocytes Absolute Auto 0.6 10^3/uL (0.3-0.8); Monocytes Percent Auto 6.5 % (1.7-12.0); Neutrophils Absolute Auto 6.3 10^3/uL (1.4-6.5); Neutrophils Percent Auto 63.1 % (43.0-75.0); Platelet Count 288 10^3/uL (150-450); Red Blood Count 3.82 10^6/uL (4.20-5.40); Red Cell Distribution Width 14.4 % (11.0-15.0); White Blood Count 9.9 10^3/uL (4.0-11.0)
[2024-01-28 15:48] LABS: BUN Creatinine Ratio 11.5; Calcium 8.2 mg/dL (8.5-10.1); Carbon Dioxide 23.6 mmol/L (21.0-32.0); Chloride 107 mmol/L (98-107); Estimated GFR (African America >60 (>=60); Estimated GFR (Non-African Ame >60 (>=60); Glucose 143 mg/dL (74-106); Potassium 3.6 mmol/L (3.5-5.1); Sodium 139 mmol/L (136-145)
[2024-01-28] MEDS: HYDROMORPHONE HCL 0.5 MG/0.5 ML SYRINGE IV (16:46)
[2024-01-28] MEDS: ENOXAPARIN SODIUM 40 MG/0.4 ML SYRINGE SUBQ (18:01)
--- NOTE | 2024-01-28 19:27 | PC.NURSE ---
Dressing to right lower leg is clean, dry, and intact. Visible digits are pink, warm, and dry. Denies any numbness or tingling at this time.
--- NOTE | 2024-01-28 19:27 | PM.PN ---
Progress Note: Subjective Subjective Interval history: patient seen at bedside who is tearful due to uncontrolled pain. Patient relates that her maximum point of tenderness was for posterior heel and medial ankle. Her nerve block wore off this morning and unfortunately there is difficulty with IV access so her pain became uncontrollable Exam Narrative Exam Narrative: splint was clean dry and intact. Upon removal incisions are well coapted with dry blood on the deepest parts of the bandage. No signs of infection Constitutional Vital Signs, click to edit/add: Last Vital Signs Temp 98.2 F 01/28/24 19:00 Pulse 90 01/28/24 19:00 Resp 20 01/28/24 19:00 BP 141/85 01/28/24 19:00 Pulse Ox 98 01/28/24 19:00 O2 Del Method Room Air 01/28/24 19:00 Progress Note: Objective Labs Labs: Short CBC 01/28/24 Range/Units 15:27 WBC 9.9 (4.0-11.0) 10^3/uL Hgb 10.8 L (12.0-16.0) g/dL Hct 35.2 L (36.0-48.0) % Plt Count 288 (150-450) 10^3/uL BMP 01/28/24 15:27 Sodium 139 Potassium 3.6 Chloride 107 Carbon Dioxide 23.6 BUN 10.0 Creatinine 0.87 Glucose 143 H Calcium 8.2 L Progress Note: A&P Assessment and Plan (1) Status post surgical manipulation of ankle joint: (2) Arthritis of right ankle: (3) Anxiety: (4) Hypertension: Qualifiers: Hypertension type: primary hypertension Qualified Code(s): I10 - Essential (primary) hypertension Plan the splint was cut up the center in the heel was padded with additional ABDs then new Marck wraps were used to loosely reapproximate the splint Within minutes of altering the splint patient related that her pain was improved and she no longer needed IV Dilaudid at 1900 ( which was the next available time) a new splint will be applied likely tomorrow There was some confusion regarding why her [place] was discontinued and I confirmed with the patient that she only had an adverse reaction to oxycodone/Percocet therefore [place] 5/325 for thtb-cs-lplqwqsw pain and [place] 10/325 for severe pain was added to her orders to be taken as needed every four hours (scheduled Tylenol was decreased to 500 mg every 6 hours) 0.5 mg of Dilaudid every 2 as needed for breakthrough pain was kept on her orders just in case pain becomes unbearable overnight due to previous IV access problems I also placed a one time dose of Toradol 15 mg IM to be used in place of IV Toradol if this occurs again Continue close observation with pulse ox will follow
[2024-01-28] MEDS: ACETAMINOPHEN 500 MG TABLET PO (20:09)
[2024-01-28] MEDS: NORGEST PO (21:20)
[2024-01-28] MEDS: [UNRECOGNIZED DRUG - OTHER] PO (21:20)
[2024-01-28] MEDS: AMLODIPINE BENAZEPRIL PO (21:20)
[2024-01-28] MEDS: E ESTRADIOL E ESTRAD PO (21:20)
[2024-01-29] MEDS: HYDROCODONE/ACET 10-325 MG TABLET 1 TAB PO ×2 (00:14→16:17)
[2024-01-29 03:00] VITALS: BP 115/74; PULSE 87; RESP 20; TEMP 36.6; O2SAT 97
[2024-01-29] MEDS: KETOROLAC TROMETHAMINE 30 MG/ML VIAL IVP ×3 (03:11→14:15)
[2024-01-29] MEDS: HYDROCODONE/ACET 5-325 MG TABLET 1 TAB PO ×2 (04:11→11:23)
--- NOTE | 2024-01-29 04:14 | PC.NURSE ---
vicente wrap to right lower leg is clean, dry, and intact. Visible digits are pink, warm, and dry. Patient denies any numbness or tingling to right foot
[2024-01-29] MEDS: CEFAZOLIN SODIUM/DEXTROSE,ISO 2 GM/50 ML PIGGYBACK IV ×2 (05:08→13:35)
[2024-01-29] MEDS: PREGABALIN 75 MG CAPSULE PO ×2 (05:08→13:43)
--- NOTE | 2024-01-29 08:59 | PM.PN ---
Progress Note: Subjective Subjective Interval history: Patient examined and evaluated at around noon resting comfortably at bedside. POD #1 s/p right ankle removal of implant, ankle subtalar joint arthrodesis with tibial autograft harvest. DOS 01/27/2024. States her pain is much better controlled today, rating it 6 out of 10 on current regimen. Splint was taken down by Dr. Whiteside yesterday p.m. and patient states this helped significantly with her pain in the heel as well as medial ankle. She is complaining of some muscle spasms today. She is reluctant to go home today due to still requiring IV Toradol for breakthrough pain. She denies any other acute lower extremity complaints and denied any constitutional symptoms at time of visit. Exam Narrative Exam Narrative: Vascular DP PT pulses faintly palpable, CFT intact. Significant warm symmetric without focal increase. No erythema. Mild nonpitting edema to the right lower extremity consistent with postop state. Neuro: Light touch gross sensation present to digits. Derm: Incisions well coapted with sutures intact. No signs of dehiscence or infection. MSK: Strength range of motion deferred secondary to postop state. Palpatory tenderness to the multiple incision sites, compartments are soft and compressible, no pain with calf or thigh compression. Constitutional Vital Signs, click to edit/add: Last Vital Signs Temp 97.8 F 01/29/24 03:00 Pulse 87 01/29/24 03:00 Resp 20 01/29/24 03:00 BP 115/74 01/29/24 03:00 Pulse Ox 97 01/29/24 03:00 O2 Del Method Room Air 01/29/24 03:00 Progress Note: Objective Labs Labs: Short CBC 01/28/24 Range/Units 15:27 WBC 9.9 (4.0-11.0) 10^3/uL Hgb 10.8 L (12.0-16.0) g/dL Hct 35.2 L (36.0-48.0) % Plt Count 288 (150-450) 10^3/uL BMP 01/28/24 15:27 Sodium 139 Potassium 3.6 Chloride 107 Carbon Dioxide 23.6 BUN 10.0 Creatinine 0.87 Glucose 143 H Calcium 8.2 L Progress Note: A&P Assessment and Plan (1) Status post surgical manipulation of ankle joint: (2) Arthritis of right ankle: (3) Anxiety: (4) Hypertension: Qualifiers: Hypertension type: primary hypertension Qualified Code(s): I10 - Essential (primary) hypertension Plan Patient examined evaluated. All findings discussed with patient all questions answered to patient satisfaction. Pertinent labs and imaging reviewed. RLE Dressing changed with Xeroform, dry sterile dressing, ABDs, Kerlix and 2 layer Belcher compressive dressing with posterior splint. To be left CDI until follow-up. Maintain strict nonweightbearing to right lower extremity. PT/OT On board. Managing pain control, will dc MS Contin, hold Dilaudid and ToradolAnd increase [place] to 5-10/325 every 4 hours as needed. Added p.o. tizanidine for muscle spasms.. Lovenox for DVT prophylaxis. Will DC on Xarelto. Rest per primary Had extended discussion with patient regarding long-term Toradol use and our goal is to control her pain with oral [place]. Will attempt to wean her off IV medications today and if pain is controlled with p.o. [place] she will be able to DC home today versus tomorrow a.m. Please call with any questions or concerns.
--- NOTE | 2024-01-29 09:07 | SWNOTE1 ---
SW attempted to see pt 2x yesterday (01/28/24), but pt had family in room and was in too much pain for SW to complete assessment.
[2024-01-29] MEDS: POLYETHYLENE GLYCOL 3350 17 GM POWDER PACKET PO (09:19)
[2024-01-29] MEDS: ACETAMINOPHEN 500 MG TABLET PO ×2 (09:19→13:11)
[2024-01-29 09:23] VITALS: BP 151/82; PULSE 106; RESP 18; TEMP 36.4; O2SAT 98
--- NOTE | 2024-01-29 10:34 | CM.NOTE ---
Rounds made with Dr. Mendez, pt pain is much better controlled today. Pt verbalizes Dr. Whiteside loosening splint and pain immediately relieved. Pt now taking P.O medication for pain. Possible discharge to home today after podiatry evaluates.
--- NOTE | 2024-01-29 12:26 | P.DS_ITS ---
<Statement entered by Zenaida Mendez DO - 01/30/24 09:10> This documentation has been reviewed and approved.Patient was also seen and evaluated at the time of discharge and agree with the above and discharge plan. DS: Providers Provider Date of admission: 01/28/24 12:30 Primary care physician: Non-Staff PhysicianMD Consults: 01/27/24 12:11 Consult to Message Broker Developer Routine Reason for consult:: [facility] Other reason:: Possible SNF, anticipate DC home Physical Therapy Eval and Treat Routine Reason for consultation: postop gait eval/fall risk, nwb rle 01/27/24 15:06 Physical Therapy Eval and Treat Routine Reason for consultation: [facility] Has provider been notified: No Discharging clinician: Alexsandra Arora DS: Diagnosis Discharge Diagnosis (1) Status post surgical manipulation of ankle joint: (2) Arthritis of right ankle: (3) Anxiety: (4) Hypertension: Qualifiers: Hypertension type: primary hypertension Qualified Code(s): I10 - Essential (primary) hypertension DS: Summary Hospital Course Hospital Course: The patient was admitted in observation postoperatively after Dr Whiteside performed a right ankle and subtalar joint fusion, removal of total talus implant, and tendo Achilles lengthening and harvest of tibial bone graft on 01/27/2024. The patient experienced significant postoperative pain and anxiety which was difficult to control. After multiple adjustments in her pain management modalities per the podiatry service and readjustment of her postoperative splint, the patient's pain control was improved. She had mild postoperative anemia that did not require PRBC transfusion. Otherwise she is medically stable. She is being discharged home in stable condition. She is a nonweightbearing of her right lower extremity for 8 to 12 weeks. All pain management is deferred to the podiatry service for postoperative pain. She should follow-up with the podiatry service next week. Time Spent with Patient Time attestation: Total time spent providing and/or coordinating discharge services: Time spent: greater than 30 minutes Specific discharge activities: Physical exam, discussion of discharge plan, questions answered. Exam Constitutional Vital Signs, click to edit/add: Last Vital Signs Temp 97.5 F L 01/29/24 09:23 Pulse 106 H 01/29/24 09:23 Resp 18 01/29/24 09:23 BP 151/82 H 01/29/24 09:23 Pulse Ox 98 01/29/24 09:23 O2 Del Method Room Air 01/29/24 09:23 Common normals: no apparent distress, oriented x3 and alert General appearance: cooperative Orientation/consciousness: Yes awake HENMT Common normals: normocephalic and head/scalp atraumatic Eye Common normals: PERRL, EOMs intact bilaterally, conjunctivae normal and no scleral icterus Neck & C-Spine Common normals: no JVD Respiratory Common normals: normal respiratory effort, no use of accessory muscles and clear to auscultation bilaterally Effort & inspection: able to speak in complete sentences and symmetric chest movement Cardio Common normals: no JVD, regular rate, regular rhythm, S1 normal heart sound, S2 normal heart sound and peripheral pulses 2+ throughout Heart sounds: murmur (HSM 3/6) GI Common normals: Normal to inspection, nondistended, normoactive bowel sounds present, soft to palpation and non-tender Bladder/kidney exam: bladder normal to palpation Extremity Common normals: normal to inspection, normal capillary refill and no pedal edema General: no clubbing and no cyanosis Right lower extremity: ankle joint (Surgical drsg D&I. R toes pink and warm) Neuro Common normals: moves all extremities, no focal motor deficits and no sensory deficits noted Speech: speech normal Psych Common normals: mental status grossly normal and activity/motor behavior normal DS: Data Data Completed and Pending Labs on day of discharge: Labs from last 24 hours 01/28/24 15:27 WBC 9.9 RBC 3.82 L Hgb 10.8 L Hct 35.2 L MCV 92.1 MCH 28.3 MCHC 30.7 RDW 14.4 Plt Count 288 MPV 9.0 L Neut % (Auto) 63.1 Lymph % (Auto) 29.5 [place] % (Auto) 6.5 Eos % (Auto) 0.5 L Baso % (Auto) 0.2 Neut # (Auto) 6.3 Lymph # (Auto) 2.9 [place] # (Auto) 0.6 Eos # (Auto) 0.1 Baso # (Auto) 0.0 Abs Immat Gran (auto) 0.02 Imm/Tot Granulo (auto) 0.2 Sodium 139 Potassium 3.6 Chloride 107 Carbon Dioxide 23.6 Anion Gap 12.0 BUN 10.0 Creatinine 0.87 Est GFR ( Amer) >60 Est GFR (Non-Af Amer) >60 BUN/Creatinine Ratio 11.5 Glucose 143 H Calcium 8.2 L Imaging Ankle X-ray: Radiologist's impression: IMPRESSION: Interval ankle fusion detailed above Foot X-ray: Radiologist's impression: IMPRESSION: Interval ankle fusion detailed above CT scan - Ankle: Radiologist's impression: FINDINGS: BONES: Interval revision with removal of the talus replacement and ankle fusion. Talus spacer in place with retrograde intramedullary nail and proximally and distally. No acute fracture, dislocation or mechanical failure. Moderate enthesopathic spurring of the calcaneus at the Achilles and plantar insertions. Moderate degenerative changes throughout the midfoot with joint space narrowing marginal osteophyte formation. Resection of the distal fibula. Placement of bone graft material SOFT TISSUES: Postsurgical changes with skin thickening, subcutaneous edema, subcutaneous air and joint air and fluid EFFUSION: None visible. OTHER: Negative. CT/CT ankle RT wo con IMPRESSION: Interval ankle fusion detailed above Discharge Plan Discharge Disposition: Home, Self-Care Condition: Good Discharge Medications: Continued amlodipine-benazepril 5-20 mg capsule 1 cap PO QPM L norgest/e.estradiol-e.estrad [Camrese] 0.15 mg-30 mcg (84)/10 mcg (7) tablets,dose pack,3 month 1 tab PO DAILY cholecalciferol (vitamin D3) 10 mcg (400 unit) capsule 10 mcg PO DAILY omega 0-ruj-azq-fish oil [Fish Oil] 1,000 mg (120 mg-180 mg) capsule 1 cap PO DAILY amoxicillin-pot clavulanate [Augmentin] 500-125 mg tablet 1 tab PO BID alendronate [Fosamax] 70 mg tablet 70 mg PO QWEEK Print Language: Vincentian Activity Restrictions/Additional Instructions: - Non-weightbearing to R ankle x 8-12 weeks Follow Up Appointments: Feb.04 @ 9:15am with Dr. Glynn [phone]
--- NOTE | 2024-01-29 12:44 | SWNOTE1 ---
SW met with pt and pt's in room. Pt lives at home with her and other family members, she voices a great support system. This is her 5th surgery on her foot. Pt and voice they have all kinds of DME equipment at home. Walker, bedside commode, shower chair, lift chair, etc. They voice they have no needs at discharge. Pt did work with therapy and had no needs. Pt does not need skilled for rehab, and they do not want any HH at this time. SW to follow as needed.
--- NOTE | 2024-01-29 12:47 | SWNOTE1 ---
Pt does have knee scooter at home as well.
[2024-01-29] MEDS: TIZANIDINE HCL 4 MG TABLET PO (13:35)
[2024-01-29 13:40] VITALS: BP 148/72; PULSE 87; RESP 16; TEMP 36.6; O2SAT 98
[2024-01-29] MEDS: 0.9 % SODIUM CHLORIDE 250 ML 10 ML IV (13:43)
[2024-01-29] MEDS: MORPHINE SULFATE 15 MG TABLET.ER PO (15:06)
[2024-01-29] MEDS: ENOXAPARIN SODIUM 40 MG/0.4 ML SYRINGE SUBQ (16:19)
--- NOTE | 2024-01-30 16:21 | CM.DCFOLLOWU ---
Person spoke with: patient How are you feeling? pretty good How is your pain? Pt voiced she reached out to Dr Whiteside and he adjusted some medications for her Did you understand your discharge instructions? yes Do you have any questions about your discharge instructions? no Were you given any prescriptions at discharge? yes Were you able to get your prescriptions filled? yes Do you understand how to take your medications as ordered? yes Do you have any questions about your follow up appointment and do you plan to keep your follow up appointment? no questions, reviewed follow ups with patient Is there anything else that you would like to discuss? no Questions/Comments/Concerns/Other: N/A
== END 2024-01-29 17:04 | disposition home or self-care (01) ==
LOC: SURGOUT 12:34 → MS 12:34
PROVIDERS: Anesthesiology; Admitting Provider Nurse Practitioner; Visit Provider Podiatrist Foot & Ankle Surgery
PROC: (CPT 1470; principal; 2024-01-27 07:30)
DX: M19.171 Post-traumatic osteoarthritis, right ankle and foot (principal); M87.073 Idiopathic aseptic necrosis of unspecified ankle; M72.2 Plantar fascial fibromatosis; Z96.661 Presence of right artificial ankle joint; M76.61 Achilles tendinitis, right leg; M25.871 Other specified joint disorders, right ankle and foot; M76.821 Posterior tibial tendinitis, right leg; Z79.899 Other long term (current) drug therapy; F32.A Depression, unspecified; F41.9 Anxiety disorder, unspecified; I10 Essential (primary) hypertension; Q21.10 Atrial septal defect, unspecified; Z90.49 Acquired absence of other specified parts of digestive tract; Z98.890 Other specified postprocedural states; Z86.16 Personal history of COVID-19; Z87.442 Personal history of urinary calculi; Z87.01 Personal history of pneumonia (recurrent)
CPT/HCPCS: 27685; 27870; 28725; 36415; 64445; 64447; 73610; 73630; 73700; 76000; 80048; 82948; 84703; 85025; 96365; 96366; 96372; 96375; 96376; C1713; C1776; G0378; J1094; J1170; J2704

== ENCOUNTER 2024-02-18 10:18 | Outpatient (OUT) | payer SELFPAY ==
--- NOTE | 2024-02-18 | XR_ITS ---
The [address] [address] Patient Name: SERA MAHONEY MRN: [id number] date: 1980 Sex: F Assigned Patient Location: Current Patient Location: Accession/Order Number: [id number] Exam Date: 02/18/2024 10:41 Report Date: 02/18/2024 14:18 At the request of: KOREY SAMS Procedure: XR foot RT min 3V PROCEDURE: XR foot RT min 3V, XR ankle RT min 3V COMPARISON: 01/27/2024 HISTORY: RIGHT FOOT PAIN FINDINGS: BONES:Ankle fusion with talus spacer utilizing a retrograde intramedullary bear and proximally and distally. Moderate enthesopathic spurring of the calcaneus at the Achilles and plantar insertions. Moderate degenerative changes. Heterotopic bone graft favored. Resection of the distal fibula. No acute fracture, dislocation or mechanical failure SOFT TISSUES:Negative. No visible soft tissue swelling. EFFUSION:None visible. OTHER: Negative. XR/XR foot RT min 3V IMPRESSION: Stable ankle fusion with no mechanical failure Electronically authenticated by: WELLINGTON NIX Date: 02/18/2024 14:18
--- NOTE | 2024-02-18 | XR_ITS ---
The [address] [address] Patient Name: SERA MAHONEY MRN: [id number] date: 1980 Sex: F Assigned Patient Location: Current Patient Location: Accession/Order Number: [id number] Exam Date: 02/18/2024 10:41 Report Date: 02/18/2024 14:18 At the request of: KOREY SAMS Procedure: XR ankle RT min 3V PROCEDURE: XR foot RT min 3V, XR ankle RT min 3V COMPARISON: 01/27/2024 HISTORY: RIGHT FOOT PAIN FINDINGS: BONES:Ankle fusion with talus spacer utilizing a retrograde intramedullary bear and proximally and distally. Moderate enthesopathic spurring of the calcaneus at the Achilles and plantar insertions. Moderate degenerative changes. Heterotopic bone graft favored. Resection of the distal fibula. No acute fracture, dislocation or mechanical failure SOFT TISSUES:Negative. No visible soft tissue swelling. EFFUSION:None visible. OTHER: Negative. XR/XR ankle RT min 3V IMPRESSION: Stable ankle fusion with no mechanical failure Electronically authenticated by: WELLINGTON NIX Date: 02/18/2024 14:18
== END 2024-02-18 10:19 | disposition home or self-care (01) ==
PROVIDERS: Visit Provider Podiatrist Foot & Ankle Surgery
DX: M25.571 Pain in right ankle and joints of right foot (principal); M72.2 Plantar fascial fibromatosis; Z98.890 Other specified postprocedural states
CPT/HCPCS: 73610; 73630

== ENCOUNTER 2024-03-11 10:15 | Outpatient (OUT) | payer BC, SELFPAY ==
--- NOTE | 2024-03-11 | XR_ITS ---
The [address] [address] Patient Name: SERA MAHONEY MRN: [id number] date: 1980 Sex: F Assigned Patient Location: Current Patient Location: Accession/Order Number: [id number] Exam Date: 03/11/2024 10:20 Report Date: 03/11/2024 12:08 At the request of: FRANCIA COLLAZO Procedure: XR foot RT min 3V PROCEDURE: XR foot RT min 3V, XR ankle RT min 3V COMPARISON: 02/18/2024 HISTORY: RIGHT FOOT PAIN FINDINGS: BONES:Stable ankle fusion with a talus spacer. No acute fracture, dislocation or mechanical failure. Moderate enthesopathic spurring of the calcaneus at the Achilles and plantar insertions. Degenerative changes with joint space narrowing and marginal osteophyte formation most significant first metatarsal-phalangeal joint SOFT TISSUES:Negative. No visible soft tissue swelling. EFFUSION:None visible. OTHER: Negative. XR/XR foot RT min 3V IMPRESSION: Stable postsurgical and degenerative changes with no acute fracture or mechanical failure Electronically authenticated by: WELLINGTON NIX Date: 03/11/2024 12:08
--- NOTE | 2024-03-11 | XR_ITS ---
[address] [address] Patient Name: SERA MAHONEY MRN: [id number] date: 1980 Sex: F Assigned Patient Location: Current Patient Location: Accession/Order Number: [id number] Exam Date: 03/11/2024 10:20 Report Date: 03/11/2024 12:08 At the request of: FRANCIA COLLAZO Procedure: XR ankle RT min 3V PROCEDURE: XR foot RT min 3V, XR ankle RT min 3V COMPARISON: 02/18/2024 HISTORY: RIGHT FOOT PAIN FINDINGS: BONES:Stable ankle fusion with a talus spacer. No acute fracture, dislocation or mechanical failure. Moderate enthesopathic spurring of the calcaneus at the Achilles and plantar insertions. Degenerative changes with joint space narrowing and marginal osteophyte formation most significant first metatarsal-phalangeal joint SOFT TISSUES:Negative. No visible soft tissue swelling. EFFUSION:None visible. OTHER: Negative. XR/XR ankle RT min 3V IMPRESSION: Stable postsurgical and degenerative changes with no acute fracture or mechanical failure Electronically authenticated by: WELLINGTON NIX Date: 03/11/2024 12:08
== END 2024-03-11 10:16 | disposition home or self-care (01) ==
PROVIDERS: Visit Provider Podiatrist Foot & Ankle Surgery
DX: M76.61 Achilles tendinitis, right leg (principal); M72.2 Plantar fascial fibromatosis; Z98.890 Other specified postprocedural states
CPT/HCPCS: 73610; 73630

== ENCOUNTER 2024-04-01 10:15 | Outpatient (OUT) | payer BC, SELFPAY ==
--- NOTE | 2024-04-01 | XR_ITS ---
The [address] [address] Patient Name: SERA MAHONEY MRN: [id number] date: 1980 Sex: F Assigned Patient Location: Current Patient Location: Accession/Order Number: [id number] Exam Date: 04/01/2024 10:18 Report Date: 04/01/2024 15:31 At the request of: FRANCIA COLLAZO Procedure: XR ankle RT min 3V PROCEDURE: XR ankle RT min 3V COMPARISON: 03/11/2024 HISTORY: RIGHT ANKLE PAIN FINDINGS: BONES:Stable ankle fusion utilizing a retrograde intramedullary bear with a talus spacer. No acute fracture, dislocation or mechanical failure. Remote resection of the distal fibula. Moderate degenerative changes with joint space narrowing marginal osteophyte formation SOFT TISSUES:Negative. No visible soft tissue swelling. EFFUSION:None visible. OTHER: Negative. XR/XR ankle RT min 3V IMPRESSION: Stable ankle fusion with no mechanical failure Electronically authenticated by: WELLINGTON NIX Date: 04/01/2024 15:31
== END 2024-04-01 10:16 | disposition home or self-care (01) ==
LOC: EC 10:15
PROVIDERS: Visit Provider Podiatrist Foot & Ankle Surgery
DX: M25.571 Pain in right ankle and joints of right foot (principal); M24.671 Ankylosis, right ankle
CPT/HCPCS: 73610

== ENCOUNTER 2024-04-28 08:42 | Outpatient (OUT) | payer BC, SELFPAY ==
--- NOTE | 2024-04-28 | CT_ITS ---
[address] [address] Patient Name: ESRA MAHONEY MRN: [id number] date: 1980 Sex: F Assigned Patient Location: CT Current Patient Location: CT Accession/Order Number: [id number] Exam Date: 04/28/2024 08:54 Report Date: 04/28/2024 09:34 At the request of: FRANCIA COLLAZO Procedure: CT ankle RT wo con EXAMINATION: CT ankle RT wo con HISTORY: DJD Rt ankle, status post TTC fusion with implant COMPARISON: 01/27/2024 TECHNIQUE: Multi-planar CT images were created without IV contrast. Dose reduction techniques were achieved by using automated exposure control and/or adjustment of mA and/or kV according to patient size and/or use of iterative reconstruction technique. FINDINGS: BONES: Stable ankle fusion with a talus spacer. Intramedullary bear and proximally and distally. No acute fracture, dislocation or mechanical failure. Moderate enthesopathic spurring of the calcaneus at the Achilles and plantar insertions, unchanged. Degenerative changes with joint space narrowing and marginal osteophyte formation. Stable remote distal fibular resection SOFT TISSUES: Mild soft tissue swelling of the ankle, lateral greater than medial EFFUSION: None visible. OTHER: Negative. CT/CT ankle RT wo con IMPRESSION: Stable ankle fusion Electronically authenticated by: WELLINGTON NIX Date: 04/28/2024 09:34
--- OUTSIDE RECORDS SUMMARY | 2024-04-28 08:46 | XMS_ITS ---
Patient Summarization (C-CDA 2.1 CCD) Created on: April 28, 2024 ALEXA WOOA : 1980 Sex: Female Author Organization Sample organization Care Team Providers Care Mechanic/Welder Name Role Phone Hetal Alonso Unavailable Unavailable Unavailable Unavailable Unavailable CELESTE, Dr. HETAL RAMOS Primary [facility] ARLETH Syed Attending Unavailable CELESTE, Dr. HETAL RAMOS [facility] ARLETH Ji Attending Unavailable CELESTE, Dr. HETAL RAMOS Referring Unavai lable ALONSO, Dr. HETAL RAMOS Primary [facility] Unavai lable ALONSO, Dr. HETAL RAMOS Attending Unavai lable ALONSO, Dr. HETAL RAMOS Referring Unavai lable ALONSO, Dr. HETAL RAMOS Attending Unavai lable ALONSO, Dr. HETAL RAMOS Referring Unavai lable ALONSO, Dr. HETAL RAMOS Primary [facility] Unavai lable ALONSO, Dr. HETAL RAMOS Primary [facility] Unavai lable ALONSO, Dr. HETAL RAMOS Attending Unavai lable ALONSO, Dr. HETAL RAMOS Referring Unavai lable ALONSO, Dr. HETAL RAMOS Attending Unavai lable ALONSO, Dr. HETAL RAMOS Referring Unavai lable ALONSO, Dr. HETAL RAMOS Primary [facility] Unava labFRANCIA Adkins Admitting Unavailable FRANCIA COLLAZO Attending Unavailable BOYD, DR WELLINGTON Forrest Consulting Unavailable FRANCIA COLLAZO Consulting Unavailable FRNACIA COLLAZO Admitting Unavailable FRANCIA COLLAZO Attending Unavailable [...] Admitting Unavailable HIGHLANDER, FRANCIA Anderson Attending Unavailable ZIEBRETA, DR JERZY Watts Consulting Unavailable HIGHLANDER, FRANCIA Anderson Consulting Unavailable Evan Feliciano Unavailable Celeste VALE, Hetal Recio Primary Care Provider Celeste VALE, Hetal Recio Unavailable [phone] ALONSO, HETAL Primary Care Unavailable HUTCHINSON DPM, [...] Attending Unavailable ALONSO, HETAL Primary Care Unavailable ALONSOHETAL K Attending Unavailable ALONSO, HETAL K Primary Care Unavailable ALONSOHETAL K Attending Unavailable ALONSO, HETAL K Primary Care Unavailable ALONSO, HETAL K Attending Unavailable ALONSO, HETAL K Primary Care Unavailable Hetal Alonso MD Unavailable Allergies Allergy Classification Reported Allergen(s) Allergy Type Date of Onset Reaction(s) Facility Acetaminophen / oxyCODONE (2 sources) Acetaminophen / oxyCODONE; Translations: [Percocet TABS] [facility] Macrolides (antibiotic) (1 source) Azithromycin; Translations: [Zithromax PACK] [facility] Work [facility]: (20 sources) Acetaminophen / oxyCODONE; Translations: [Percocet TABS] Drug Allergy 2 Hallucinations, Rash [facility] Work [facility]: (19 sources) Azithromycin; Translations: [Zithromax PACK] Drug Allergy 2 [facility] Work Phone: (2 sources) Acetaminophen / oxyCODONE Drug Allergy [facility] Repository (2 sources) Adhesive agent Drug allergy (disorder) [facility] Repository (3 sources) Azithromycin; Translations: [AZITHROMYCIN] Drug Allergy 2 [facility] Repository (1 source) Acetaminophen / oxyCODONE; Translations: [OXYCODONE-ACETAM INOPHEN] Drug Allergy 2 [facility] 3 Repository Encounters Encounter Date Encounter Type Care Provider Facility Start: 12-27-2023 End: 12-27-2023 ambulatory HETAL Recio [facility] Ambulatory Start: 12-27-2023 End: 12-27-2023 Office outpatient visit 25 minutes Hetal Alonso MD Work Phone: [facility] Comment on above: Adjustment disorder with mixed anxiety and depressed mood (Primary Dx); Weakness of both lower extremities; Bilateral hip pain Start: 10-21-2023 End: 10-22-2023 ambulatory HETAL ALONSO MD Facility:[id number] Start: 10-21-2023 End: 10-21-2023 ambulatory HETAL ALONSO [facility] Ambulatory Start: 10-21-2023 End: 10-21-2023 Office outpatient visit 15 minutes Hetal Alonso MD Work Phone: [facility] Comment on above: Bronchitis (Primary Dx) Start: 07-18-2023 End: 07-18-2023 ambulatory DEWAYNE GARRISON MD Facility:[facility] Start: 06-28-2023 End: 06-28-2023 ambulatory HETAL K [facility] Ambulatory Start: 06-28-2023 End: 06-28-2023 Office outpatient visit 15 minutes Hetal Alonso MD Work Phone: [facility] Comment on above: 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); Benign essential hypertension; Morbid obesity with body mass index (BMI) of 50.0 to 59.9 in adult (CMS/HCC) Start: 05-30-2023 End: 05-30-2023 ambulatory Evan Feliciano Other [facility] [employer] Other Start: 05-30-2023 Telephone encounter Evan Feliciano [facility] Start: 05-16-2023 (PROC) PROCEDURE Evan Feliciano [facility] Start: 05-16-2023 End: 05-16-2023 ambulatory Evan Feliciano Other [facility] Other Start: 05-14-2023 End: 05-15-2023 ambulatory HETAL ALONSO Facility:[facility] Start: 05-09-2023 End: 07-06-2023 ambulatory HETAL ALONSO Facility:[id number] Start: 05-01-2023 End: 05-01-2023 ambulatory Evan Feliciano Other [facility] [employer] Other Start: 05-01-2023 Telephone encounter Evan Feliciano [facility] Start: 04-29-2023 End: 04-29-2023 ambulatory Evan Feliciano Other [facility] [employer] Other Start: 04-29-2023 Office outpatient vi sit 25 minutes Evan Feliciano [facility] Start: 04-15-2023 End: 04-16-2023 ambulatory HETAL ALONSO Facility:[id number] Start: 04-05-2023 End: 04-05-2023 ambulatory Evan Feliciano Other [employer] Other Start: 04-05-2023 Office consultation new/estab patient 60 min Evan Feliciano [facility] Karen Start: 04-05-2023 Telephone encounter Evan Feliciano [facility] Start: 03-07-2023 ambulatory HETAL ALONSO Facility: [facility] Start: 02-25-2023 ambulatory HETAL ALONSO Facility: [facility] Start: 02-20-2023 End: 02-21-2023 ambulatory FRANCIA COLLAZO Facility:H1 Start: 02-06-2023 End: [id number] Start: 01-10-2023 End: 01-10-2023 ambulatory FRANCIA COLLAZO Facility:[facility]1 Start: 01-08-2023 Encounter for other preprocedural examination FRANCIA Anderson [facility] Start: 01-08-2023 Encounter for preprocedural cardiovascular examination FRANCIA Anderson [facility] Start: 01-08-2023 Encounter for preprocedural laboratory examination [facility] Start: 01-08-2023 End: 01-09-2023 [facility] Start: 01-07-2023 End: 01-08-2023 ambulatory FRANCIA COLLAZO Facility:[facility]1 Start: 01-07-2023 End: 01-08-2023 Encounter for preprocedural laboratory examination FRANCIA COLLAZO Facility:H1 Start: 12-19-2022 End: 12-20-2022 [facility] Start: 11-21-2022 End: 11-22-2022 ambulatory FRANCIA Anderson [facility] Facility:H1 Start: 11-14-2022 End: 11-15-2022 ambulatory FRANCIA Anderson [facility] Facility:H1 Start: 2022 End: 02-02-2023 ambulatory HETAL ALONSO Facility:[id number] Start: 09-11-2022 Current tobacco non- user cad cap copd pv dm Hetal Alonso Work Phone: -[facility] Work Phone: Start: 09-11-[address] HETAL ALONSO Facility:[id number] Start: 08-20-[address] HETAL ALONSO Facility:[id number] Start: 08-20-2022 Current tobacco non- user cad cap copd pv dm Hetal Alonso Work Phone: [facility] Work Phone: Start: 07-25-2022 End: 07-26-2022 ambulatory [facility] Facility:H1 Start: 07-18-2022 Current tobacco non- user cad cap copd pv dm Hetal Alonso Work Phone: [facility] Work Phone: Start: 07-18-[address] HETAL ALONSO Facility:[id number] Start: 04-25-2022 End: 04-26-2022 ambulatory [facility] Facility:H1 Start: 03-23-2022 Rx Renewal Hetal turner Work Phone: [facility] Work Phone: Start: 03-14-2022 ambulatory [facility] Faci lity:H1 Start: 01-23-2022 Chart Update Hetal Ferrari s Work Phone: RG-Bcfcbtk-Xqdgvktb [facility] 400 DO Work Phone: Start: 01-03-2022 Chart Update Hetal Ferrari s Work Phone: DL-Oiqjgyw-Viwfrcdc [facility]JW 400 DO Work Phone: Start: 12-28-[address] HETAL ALONSO Facility:[id number] Start: 12-20-2021 AUDIT Hetal Ferrari s Work Phone: YD-Thfdsip-Nryxkmsi SJW 400 DO Work Phone: Start: 12-18-2021 NPV, Provider: Arleth Sanz, Status: Pen, Time: 8:00 AM Hetal Alonso Work Phone: [facility] Work Phone: Start: 12-18-2021 Office outpatient ne w 45 minutes Hetal Alonso Work Phone: RY-Xvonqye-Ilqbipbk [facility] [id number] Work Phone: Start: 12-18-[address] HETAL ALONSO Facility:[id number] Start: 12-11-2021 Current tobacco non- user cad cap copd pv dm Hetal Alonso Work Phone: [facility] Work Phone: Start: 12-11-[address] HETAL ALONSO Facility:[id number] Start: 08-11-2021 Current tobacco non- user cad cap copd pv dm Hetal Alonso Work Phone: [facility] Work Phone: Start: 08-11-2021 Patient encounter procedure Hetal Alonso Work Phone: [facility] Work Phone: Start: 03-24-2021 Current tobacco non- user cad cap copd pv dm Hetal Alonso Work Phone: [facility] Work Phone: Preoperative state Hetal choudhury Work Phone: [facility] Work Phone: Immunizations Immunization Date Immunization Notes Care Provider Fa cility 09-05-2021 Pfizer-BioNTech COVI D-19 Vacc 30 MCG/0.3ML Intramuscular Suspension Hetal Alonso [facility] Work Phone: 02-12-2021 Pfizer-BioNTech COVI D-19 Vacc 30 MCG/0.3ML Intramuscular Suspension Hetal Alonso [facility] Phone: [facility] Work Phone: Comment on above: Series: 01-22-2021 [employer] COVI D-19 Vacc 30 MCG/0.3ML Intramuscular Suspension Hetal Alonso Work Phone: -[facility] Work Phone: Comment on above: Series: Medications Current Medications Medication Drug Class(es) Dates Sig (Normalized) Sig (Original) acetaminophen 325 mg / HYDROcodone bitartrate 5 mg oral tablet (6 sources) Opioid Agonist take 1 tablet by mouth every six hours HYDROcodone-Aceta minophen 5-325 MG 1 tablet as needed Orally every 6 hrs Active [id number] 200 actuat albuterol 0.09 mg/actuat metered dose [...] oral capsule (20 sources) Dihydropyridine Calcium Channel Irnia, Angiotensin Converting Enzyme Inhibitor Start: 03-17-2023 End: [...] Start: 07-18-2022 take 1 capsule by mo [facility] once daily DULoxetine HCl - 20 MG [...] tablet (6 sources) take [facility]four [facility] Norethindrone 0.35 MG 1 [...] oral solution (1 source) alpha-Adrenergic Agonist, Uncompetitive U-whjblj-H-aspartat e Receptor Antagonist, Sigma-1 Agonist Start: 10-21-2023 [...] Start : 11-Dec-2021 End : 18-Jul-2022 Complete Payers Date Payer Category Payer Unknown 1980 Unknown [id number] 2.16. [id number] 1980 Unknown [id number] 2.16. 840.1.013545.3.579.2.356 1980 Unknown [id number] 2.16. 840.1.774996.3.579.2.356 1980 Unknown [id number] 2.16. 840.1.775208.3.579.2.356 1980 Unknown [id number] 2.16. 840.1.654211.3.579.2.356 1980 Unknown [id number] 2.16. 840.1.219140.3.579.2.356 1980 Unknown [id number] 2.16.84 0.1.364669.3.579.2.593 1980 Unknown [id number] 2.16.84 0.1.795344.3.579.2.593 1978 Unknown [id number] 2.16.84 0.1.228924.3.579.2.593 1978 Unknown [id number] 2.16.84 0.1.576067.3.579.2.593 1980 Unknown [id number] 2.16.84 0.1.203298.3.579.2.593 1978 Unknown [id number] 2.16.84 0.1.736420.3.579.2.593 1978 Unknown [id number] 2.16.84 0.1.944648.3.579.2.593 1978 Unknown [id number] 2.16.84 0.1.989779.3.579.2.593 1978 Unknown [id number] 2.16.8 40.1.130636.3.579.2.159 1978 Unknown [id number] 2.16.8 40.1.099723.3.579.2.159 1978 Unknown [id number] 2.16.8 40.1.334483.3.579.2.159 1978 Unknown [id number] 2.16.8 40.1.496266.3.579.2.159 1978 Unknown [id number] 2.16.8 40.1.282049.3.579.2.159 1978 Unknown [id number] 2.16.8 40.1.742711.3.579.2.159 1978 Unknown [id number] 2.16.8 40.1.273463.3.579.2.159 1978 Unknown [id number] 2.16.8 40.1.847760.3.579.2.159 1978 Unknown [id number] 2.16.8 40.1.636859.3.579.2.159 1978 Unknown [id number] 2.16.8 40.1.269069.3.579.2.159 1978 Unknown [id number] 2.16.8 40.1.118475.3.579.2.159 1978 Unknown [id number] 2.16.8 40.1.840217.3.579.2.159 1978 Unknown [id number] 2.16.8 40.1.574231.3.579.2.159 1978 Unknown [id number] 2.16.8 40.1.987663.3.579.2.1244 1978 Unknown [id number] 2.16.8 40.1.620726.3.579.2.1244 1978 Unknown [id number] 2.16.8 40.1.119843.3.579.2.1244 1959 Unknown [id number] Plan of Treatment Date Care Activity Detail Author Start: 2028 Zoster Vaccines (1 o f 2) Zoster Vaccines (1 of 2) [facility] Start: 10-21-2023 End: 10-21-2024 XR Chest 2 Views XR chest 2 views Imaging Routine Bronchitis Expected: 10/21/2023, Expires: 10/21/2024 [facility] Service Area Work Phone: Comment on above: Expected: 10/21/2023 , Expires: 10/21/2024 Start: 07-05-2023 COVID-19 Vaccine ( season) COVID-19 Vaccine ( season) [facility] Start: 07-05-2023 Influenza vaccination Influenza Vacc ine (#1) [facility] Start: 08-20-2022 FUV, Provider: Hetal Alonso, Status: Pen, Time: 8:45 AM [facility], Provider: Hetal Alonso, Status: Pen, Time: 8:45 AM [facility] Work Phone: Start: 01-16-2022 [facility], Provider: Abi Karimi, Status: Pen, Time: 10:30 AM [facility], Provider: Abi Karimi, Status: Pen, Time: 10:30 AM [facility] Work [facility]: Start: 12-28-2021 [facility], Provider : Abi Karimi, Status: Pen, Time: 2:30 PM [facility], Provider: Abi Karimi, Status: Pen, Time: 2:30 PM [facility]B-Jlqqoey[facility]Exfswgu[facility] [address] Work Phone: Start: 10-31-2021 COVID-19 Vaccine (4 - Pfizer series) COVID-19 Vaccine (4 - Pfizer series) [facility] Start: 04-21-2021 [facility]UV, Provider: Hetal Alonso, Status: Pen, Time: 2:30 PM [facility], Provider: Hetal Alonso, Status: Pen, Time: 2:30 PM [facility] Work Phone: Start: 2018 Screening for malign ant neoplasm of breast Mammogram [facility] Start: 2000 DTaP/Tdap/Td Vaccine s (1 - Tdap) DTaP/Tdap/Td Vaccines (1 - Tdap) [facility] Start: 1999 Screening for malign ant neoplasm of cervix [facility] Start: 1996 Diabetes mellitus screening Diabetes Screening [facility] Start: 1996 Hepatitis C screening Hepatitis C [facility] Start: 1979 MMR Vaccines (1 of 1 - Standard series) MMR Vaccines (1 of 1 - Standard series) [facility] Start: 1978 Hepatitis B Vaccines (1 of 3 - 3-dose series) Hepatitis B Vaccines (1 of 3 - 3-dose series) [facility] Start: 1978 HIV screening HIV Screening [facility] Start: 1978 Lipid panel Lipid Panel [facility] Start: 1978 Screening for malign ant neoplasm of colon [facility] Start: 1978 Yearly Adult Physical Yearly Adult P hysical [facility] Problems Active Problems Problem Classification Problem Date [...] Onset: 01-23-2023 Chronic Other aftercare (1 source) care home (current) use of aspirin; Translations: [ACCOUNT SPECIALIST CURRENT USE OF ASPIRIN] Onset: 01-23-2023 Episodic [...] Added by Problem Kenia tawana Migration; 2013-10-13; Mycoses (19 sources) Candidal intertrigo; [...] (3 sources) Onset: 06-28-2023 Resolved: 12-27-2023 06-28-2023 Procedures Date Procedure Procedure Detail Performing Clinician Ankle Surgery Hetal turner Work Phone: Comment on above: talus; Cholecystectomy Hetal ho Work Phone: Results Test Name Value Interpretation Reference Range [...] 15, 2023 09:00 am EDT LW PT [address] [facility] [address] PM Follow Up LE pain Saturday DEWAYNE GARRISON MD June 17, 2023 01:15 pm EDT MM PMCL [address] [facility] [address] [facility] [address] Medications What How Much When Why Instructions New meloxicam (Mobic 15 mg oral tablet) 1 Tabs Oral DAILY Duration: 30 Days Refills: 5 Pickup at [facility] #[id number] New topiramate (Topamax 50 mg oral tablet) See instructions Refills: 5 1-2 tabs ORAL HS Pickup at [facility] #[id number] New venlafaxine (venlafaxine 37.5 mg oral tablet = effexor) 1 Tabs Oral TWICE A DAY Duration: 30 Days Refills: 5 Pickup at [facility] #[id number] Unchanged acetaminophen-hydrocodone (acetaminophen-HYDROcodone 325 mg-5 mg oral [...] for as needed for nausea/vomiting Pharmacy Information [facility] #[id number]: [address] [place], [place] [id number] [phone] What How Much When Comments Stop Taking [...] call to get immediate medical attention! [facility] Comprehensive Intake - Texto n 05-14-2023 [...] in, 168 cm) Body Mass Index Measured Maldivian : 45.19 kg/m2 BSA Maldivian : 2.43 m2 Destinee James 05/14/2023 11:18 [...] living, hemodialysis, infusion clinic, penitentiary, assisted living, mcc, homeless jail, etc.)? : No Destinee James 05/14/2023 11:18 [...] Destinee James - 05/14/2023 11:18 EDT [facility] PM-OP Progress Notes-Jessica luo 05-14-2023 PM-OP Progress Notes-Provider Chief Complaint pt reports pain in ankle and foot, pt rartes pain a 5 out of 10 on vas, pt name and verifed. History of Present Illness This is a pleasant 42-year-old patient who presents to the pain clinic at [facility], for evaluation and treatment of [...] and went to see a doctor in [place]. She had 3 deep printed talus implant [...] since her injury. She is now a ljlb-km-ubpg mom. Patient does want to go back to work and be able to perform activities of her daily living without any assistance. Patient has had physical therapy for 3 years and is still in physical therapy at [facility]. Her last session is tomorrow. Her physical [...] (05/14/2318:00) Height/Length Measured - in2: 66 in (05/14/23:18:00) Body Mass Index Measured English2: 45.19 kg/m2 (05/14/23:18:00) BSA: 2.43 m2 (07/11/23 11:18:00) Ht/Wt Measurement Refused by Patient?2: No [...] to li (more content not included)... [facility] PT Outpatient Time Spent Wit h Pt-Texton 04-16-2023 PT Outpatient Time Spent With Pt-Text PT Outpatient Time Spent With Patient Entered On: 04/16/2023 17:54 EDT Performed On: 04/16/2023 17:53 EDT by Meredith Menendez PTA Time Spent with Patient - Outpatient PT Time In : 08:00 EST PT Time Out : 08:45 EST PT Therapeutic Exercise Time : 45 minutes [place] Therapeutic Exercise Units : 3 units PT Total Timed Code Treatment Units : 3 units PT Total Timed Code Tx Minutes : 45 minutes 8 Min Rule Unit Check PT OP : 3 units PT Total Treatment Time Rehab : 45 minutes 8 Min Rule Unit Difference PT OP : 0 Meredith Menendez PTA - 04/16/2023 17:53 EDT [facility] PT Outpatient Time Spent Wit h Pt-Texton 03-26-2023 PT Outpatient Time Spent With Pt-Text PT Outpatient Time Spent With Patient Entered On: 03/26/2023 11:30 EDT Performed On: 03/26/2023 11:26 EDT by Meredith Menendez PTA Time Spent with Patient - Outpatient PT Time In : 08:45 EST PT Time Out : 09:30 EST PT Vasopneumatic Devices Time : 15 minutes [place] Vasopneumatic Devices Units : 1 units PT Soft Tissue Mobility Time : 30 minutes [place] Soft Tissue Mobility Units : 2 units [...] Meredith PALACIO - 03/26/2023 11:26 EDT [facility] Phone Msgon 03-20-2023 Phone Msg - From: Emy Davis To: KOREY HUTCHINSON DPM; Sent: 03/07/2023 09:54:43 EDT Subject: MRI Caller Name: SERA WOO; Caller Number: H , B [id number] Sera called to ask for your help [...] and won't get this message until Saturday. [phone] Malinda Connolly is speaking to [employer] in regards to further action needed [facility] Phone Msg - From: Heather Prajapati [...] they can be faxed to [employer] @ [phone] or to expedite the process, phoned in at [phone] mri case# for insurance is [id number] and should be included Thanks, Genevieve Prior auth rep [id number] Malinda Connolly speaking to [employer] for further needs regarding authorization [facility] Phone Msg - From: Lilia Schnieder To: KOREY HUTCHINSON DPM; Sent: 02/25/2023 10:43:13 EDT Caller Name: SERA WOO; Caller Number: H , B [id number] Sera called and is having her EMG done on March 05. She needs a referral to pain management so we can send the note over. Patient has been approved for MRI See Malinda Connolly [facility] PT Outpatient Time Spent Wit h Pt-Texton 03-14-2023 PT Outpatient Time Spent With Pt-Text PT Outpatient Time Spent With Patient Entered On: 03/14/2023 10:28 EDT Performed On: 03/12/2023 9:30 EDT by Meredith Menendez PTA Time Spent with Patient - Outpatient PT Time In : 08:45 EST PT Time Out : 09:30 EST PT Therapeutic Exercise Time : 45 minutes [place] Therapeutic Exercise Units : 3 units PT Total Timed Code Treatment Units : 3 units PT Total Timed Code Tx Minutes : 45 minutes 8 Min Rule Unit Check PT OP : 3 units PT Total Treatment Time Rehab : 45 minutes 8 Min Rule Unit Difference PT OP : 0 Meredith Menendez PTA - 03/14/2023 10:28 EDT [facility] PT Outpatient Time Spent Wit h Pt-Texton 03-05-2023 PT Outpatient Time Spent With Pt-Text PT Outpatient Time Spent With Patient Entered On: 03/05/2023 14:10 EDT Performed On: 03/05/2023 14:09 EDT by Meredith Menendez PTA Time Spent with Patient - Outpatient PT Time In : 11:45 EST PT Time Out : 12:30 EST PT Therapeutic Exercise Time : 45 minutes [place] Therapeutic Exercise Units : 3 units PT Total Timed Code Treatment Units : 3 units PT Total Timed Code Tx Minutes : 45 minutes 8 Min Rule Unit Check PT OP : 3 units PT Total Treatment Time Rehab : 45 minutes 8 Min Rule Unit Difference PT OP : 0 Meredith Menendez PTA - 03/05/2023 14:09 EDT [facility] PT Outpatient Time Spent Wit h Pt-Texton 02-21-2023 PT Outpatient Time Spent With Pt-Text PT Outpatient Time Spent With Patient Entered On: 02/21/2023 18:13 EDT Performed On: 02/21/2023 18:12 EDT by Meredith Menendez PTA Time Spent with Patient - Outpatient PT Time In : 10:15 EST PT Time Out : 11:00 EST PT Gait Training Time : 45 minutes [place] Gait Training Units : 3 units PT Total Timed Code Treatment Units : 3 units PT Total Timed Code Tx Minutes : 45 minutes 8 Min Rule Unit Check PT OP : 3 units PT Total Treatment Time Rehab : 45 minutes 8 Min Rule Unit Difference PT OP : 0 Meredith Menendez PTA - 02/21/2023 18:12 EDT [facility] PT Outpatient Time Spent Wit h Pt-Texton 02-18-2023 PT Outpatient Time Spent With Pt-Text PT Outpatient Time Spent With Patient Entered On: 02/18/2023 18:12 EDT Performed On: 02/18/2023 18:11 EDT by Meredith Menendez PTA Time Spent with Patient - Outpatient PT Time In : 16:30 EST PT Time Out : 17:15 EST PT Therapeutic Exercise Time : 45 minutes [place] Therapeutic Exercise Units : 3 units PT Total Timed Code Treatment Units : 3 units PT Total Timed Code Tx Minutes : 45 minutes 8 Min Rule Unit Check PT OP : 3 units PT Total Treatment Time Rehab : 45 minutes 8 Min Rule Unit Difference PT OP : 0 Meredith Menendez PTA - 02/18/2023 18:11 EDT [facility] PT Outpatient Time Spent Wit h Pt-Texton 02-11-2023 PT Outpatient Time Spent With Pt-Text PT Outpatient Time Spent With Patient Entered On: 02/11/2023 19:12 EDT Performed On: 02/11/2023 19:09 EDT by Meredith Menendez PTA Time Spent with Patient - Outpatient PT Time In : 17:45 EST PT Time Out : 18:40 EST PT Vasopneumatic Devices Time : 15 minutes [place] Vasopneumatic Devices Units : 1 units PT Therapeutic Exercise Time : 15 minutes [place] Therapeutic Exercise Units : 1 units PT Soft Tissue Mobility Time : 25 minutes [place] Soft Tissue Mobility Units : 2 units [...] Menendez PTA - 02/11/2023 19:09 EDT [facility] AMB PODIATRY Physician Progr ess Noteon 01-19-2023 AMB PODIATRY Physician Progress Note Chief Complaint [...] Est Pt Mod MDM / 30-39 min [id number], 57 Decision for surgery 01/08/2023 10:01:00 EST, Osteochondral defect of distal tibia / Avascular necrosis of the talus / Right ankle pain / Acute lumbar radiculopathy 2. Avascular necrosis of the talus M87.076 Ordered: AMB Office/Outpt Est Pt Mod MDM / 30-39 min 48010, 57 Decision for surgery 01/08/2023 10:01:00 EST, Osteochondral defect of distal tibia / Avascular necrosis of the talus / Right ankle pain / Acute lumbar radiculopathy 3. Right ankle pain M25.571 Ordered: AMB Office/Outpt Est Pt Mod MDM / 30-39 min 60499, 57 Decision for surgery 01/08/2023 10:01:00 EST, Osteochondral defect of distal tibia / Avascular necrosis of the talus / Right ankle pain / Acute lumbar radiculopathy 4. Acute lumbar radiculopathy M54.16 Ordered: AMB Office/Outpt Est Pt Mod MDM / 30-39 min 24451, 57 Decision for surgery 01/08/2023 10:01:00 EST, [...] for revisional (more content not included)... Normal [facility] PODIATRY Physician Progress Note Reason for Exam [...] to the anterior medial distal tibia Normal [facility] HEP B SURFACE ANTIGEN SCREEN on 01-11-2023 HBsAg Screen Negative Normal Negative [facility] Comment on above: Performed By: #### H BSA ####[facility] [address] [address]Dr. Raimundo Rayo HEPATITIS C ANTIBODYon 01-11 Hep C Virus Ab Non-Reactive Normal Non Reactive [facility] Comment on above: Result Comment: HCV antibody alone does not differentiate between previously resolved infection and active infection. Equivocal and Reactive HCV antibody results should be followed up with an HCV RNA test to support the diagnosis of active HCV infection. Performed By: #### H CV #### [facility] [address] [place] [address] Dr. Raimundo Rayo HIV 1 AND 2 WITH REFLEXon HIV Screen 4th Generation wRfx Non-Reactive Normal Non Reactive [facility] Comment on above: Result Comment: HIV Negative HIV-1/HIV-2 antibodies and HIV-1 p24 antigen were NOT detected. There is no laboratory evidence of HIV infection. Performed By: #### H IV12 #### [facility] [address] [place] [address] Dr. Raimundo Rayo RPR QUANTon 01-11-2023 Rapid Plasma Reagin, Quant Non-Reactive Normal NonRea<1:[address] [facility] Comment on above: Result Comment: Plea se Note: This test does not meet current guidelines for screening and diagnosis of syphilis. This test is intended for following treatment response in patients being treated for syphilis infection. To screen for syphilis infection, a reflex cascade that includes both RPR and a treponema-specific assay should be utilized, such as Treponema pallidum (Syphilis) Screening [place] (243714) or Rapid Plasma Reagin (RPR) Test With Reflex to Quantitative RPR and Confirmatory Treponema pallidum Antibodies (788378). Performed By: #### R PRQ #### [facility] [address] [place] [address] Dr. Raimundo Rayo HIV 1/2 RAPID (EXPOSURE ONLY )on 01-10-2023 HIV AB Non-Reactive Normal NON-REACTIVE [facility] Comment on above: Performed By: #### R PDHIV #### [facility] [address] [place] [address] Dr. Raimundo Rayo HIV AG Non-Reactive Normal NON-REACTIVE [facility] Comment on above: Performed By: #### R PDHIV #### [facility] [address] [address] [address] Raimundo Rayo INTERNAL CONTROLS Within Normal Limits Normal Wi thin Normal Limits [facility] Comment on above: Performed By: #### R PDHIV #### [facility] [address] [address] [address] Raimundo Rayo RAPID HIV INFO SEE BELOW Normal [facility] Comment on above: Result Comment: This test is used for the initial screening of the exposure source. Confirmation of all reactive results will be obtained through reference lab testing. Performed By: #### R PDHIV #### [facility] [address] [address] [address] Raimundo Rayo POINT OF CARE GLUCOSEon Glucose [Mass/Vol] 79 mg/dL Normal 74-[address] [facility] Comment on above: Performed By: #### P OCGLUC ####[facility] [address] [address]Dr. Raimundo Rayo Glucose [Mass/Vol] 86 mg/dL Normal 74-106 [facility] Comment on above: Performed By: #### P OCGLUC #### [facility] [address] [address] [address] Raimundo Rayo PREG HCG QUALon 01-10-2023 , QUAL Negative Normal NEGATIVE [facility] Comment on above: Performed By: #### P REG #### [facility] [address] [address] [address] Raimundo Rayo XR ANKLE RT MIN [...] by: CALEB KERN Date: 2023-01-10 16:[address] [facility] XR FOOT RT 2Von 01-10-2023 XR FOOT RT 2V EXAM: XR FOOT RT 2V. HISTORY: Pain. COMPARISON: 11/14/2022. TECHNIQUE: Intraoperative fluoroscopic view of the right ankle was obtained. Total fluoroscopy time: 32.1 seconds. FINDINGS/IMPRESSION: Intraoperative fluoroscopic utilization for right ankle surgery. Please refer to the operative report for detailed discussion. Electronically authenticated by: CALEB KERN Date: 2023-01-10 17:[address] [facility] Ambulatory Clinical Summaryo n 01-08-2023 Ambulatory Clinical Summary SERA WOO :1980 Visit Date:01/08/2023 Ambulatory Visit Instructions Your Care Team Attending Physician - EVANGELINA AUGUST, KOREY Primary Care Physician - CELESTE VALE, HETAL Procedures Performed OPEN REDUCTION OF A DISLOCATED [...] call to get immediate medical attention! Normal [facility] Comprehensive Intake - Texto n 01-08-2023 [...] living, hemodialysis, infusion clinic, penitentiary, assisted living, mcc, homeless jail, etc.)? : No Katiana Case MA 01/08/2023 [...] Katiana Case MA 01/08/2023 9:38 EST Normal [facility] CBC AUTO DIFFon 01-07-2023 BASO # 0.0 103/ul Normal 0.0-0.1 [facility] Comment on above: Performed By: #### C BC #### [facility] [address] [place] [address] Dr. Raimundo Rayo Basophils/100 WBC (Bld) 0.6 % Normal 0.2-2.[address] [facility] Comment on above: Performed By: #### C BC #### [facility] [address] [place] [address] Dr. Raimundo Rayo EO # 0.1 103/ul Normal 0.0-0.[address] [facility] Comment on above: Performed By: #### C BC #### [facility] [address] [place] [address] Dr. Raimundo Rayo Eosinophils/100 WBC (Bld) 1.1 % Normal 0.9-7.[address] [facility] Comment on above: Performed By: #### C BC #### [facility] [address] [place] [address] Dr. Raimundo Rayo Erythrocyte distribution width (RBC) [Ratio] 13.6 % Normal 11.0-15.[address] [facility] Comment on above: Performed By: #### C BC #### [facility] [address] [place] [address] Dr. Raimundo Rayo Hematocrit (Bld) [Volume fraction] 40.0 % Normal 36.0-48.[address] [facility] Comment on above: Performed By: #### C BC #### [facility] [address] [place] [address] Dr. Raimundo Rayo Hemoglobin (Bld) [Mass/Vol] 13.0 g/dL Normal 12.0-16.[address] [facility] Comment on above: Performed By: #### C BC #### [facility] [address] [place] [address] Dr. Raimundo Rayo IG # 0.03 10e3/ul Normal 0.00-0.[address] [facility] Comment on above: Performed By: #### C BC #### [facility] [address] [place] [address] Dr. Raimundo Rayo IG % 0.4 % Normal 0.0-0.5 [facility] Comment on above: Performed By: #### C BC #### [facility] [address] [place] [address] Dr. Raimundo Rayo LYMPH # 1.7 103/ul Normal 1.2-3.[address] [facility] Comment on above: Performed By: #### C BC #### [facility] [address] [place] [address] Dr. Raimundo Rayo Lymphocytes/100 WBC (Bld) 23.8 % Normal 20.5-60.[address] [facility] Comment on above: Performed By: #### C BC #### [facility] [address] [place] [address] Dr. Raimundo Rayo MANUAL DIFF REQ NO Normal [facility] Comment on above: Performed By: #### C BC #### [facility] [address] [place] [address] Dr. Raimundo Rayo MCH (RBC) [Entitic mass] 28.4 pg Normal 26.7-34.[address] [facility] Comment on above: Performed By: #### C BC #### [facility] [address] [place] [address] Dr. Raimundo Rayo MCHC (RBC) [Mass/Vol] 32.5 g/dL Normal 29.9-35.[address] [facility] Comment on above: Performed By: #### C BC #### [facility] [address] [place] [address] Dr. Raimundo Rayo MCV (RBC) [Entitic vol] 87.5 fL Normal 81.0-99.[address] [facility] Comment on above: Performed By: #### C BC #### [facility] [address] [place] [address] Dr. Raimundo Rayo MONO # 0.6 103/ul Normal 0.3-0.[address] [facility] Comment on above: Performed By: #### C BC #### [facility] [address] [place] [address] Dr. Raimundo Rayo Monocytes/100 WBC (Bld) 8.0 % Normal 1.7-12.[address] [facility] Comment on above: Performed By: #### C BC #### [facility] [address] [place] [address] Dr. Raimundo Rayo NEUT # 4.8 103/ul Normal 1.4-6.[address] [facility] Comment on above: Performed By: #### C BC #### [facility] [address] [address] [address] Raimundo Rayo Neutrophils/100 WBC (Bld) 66.1 % Normal 43.0-75.[address] [facility] Comment on above: Performed By: #### C BC #### [facility] [address] [address] [address] Raimundo Rayo Platelet mean volume (Bld) [Entitic vol] 8.5 fL Critically low 9.5-13.[address] [facility] Comment on above: Performed By: #### C BC #### [facility] [address] [address] [address] Raimundo Rayo PLT 336 103/ul Normal 150-[address] [facility] Comment on above: Performed By: #### C BC #### [facility] [address] [address] [address] Raimundo Rayo RBC 4.57 106/ul Normal 4.20-5.40 [facility] Comment on above: Performed By: #### C BC #### [facility] [address] [address] [address] Raimundo Rayo WBC 7.2 103/ul Normal 4.0-11.0 [facility] Comment on above: Performed By: #### C BC #### [facility] [address] [address] [address] Raimundo Rayo PROF CHEM 8 (BAS METB)on Anion gap [Moles/Vol] 11.3 mmol/L Normal [facility] Comment on above: Performed By: #### B MP ####[facility] [address] [address]Dr. Raimundo Rayo Calcium [Mass/Vol] 9.1 mg/dL Normal 8.5-10.1 [facility] Comment on above: Performed By: #### B MP ####[facility] [address] [id number]. Raimundo Rayo Chloride [Moles/Vol] 105 mmol/L Normal 98-107 [facility] Comment on above: Performed By: #### B MP ####[facility] [address] [address]Dr. Raimundo Rayo CO2 [Moles/Vol] 27.0 mmol/L Normal 21.0-32.0 [facility] Comment on above: Performed By: #### B MP ####[facility] [address] [address]Dr. Raimundo Rayo Creatinine [Mass/Vol] 0.53 mg/dL Critically low 0.55-1.02 [facility] Comment on above: Performed By: #### B MP ####[facility] [address] [place], [place] [address]Dr. Raimundo Rayo EGFR-AF BERMUDIAN >60 Normal >=60 [facility] Comment on above: Performed By: #### B MP ####[facility] [address] [place], [place] [address]Dr. Karynrpadeep Girma EGFR-NON AF BERMUDIAN >60 Normal >=60 [facility] Comment on above: Performed By: #### B MP ####[facility] [address] [place], [place] [address]Dr. Raimundo Rayo Glucose [Mass/Vol] 104 mg/dL Normal 74-106 [facility] Comment on above: Performed By: #### B MP ####[facility] [address] [place], [place] [address]Dr. Raimundo Rayo Potassium [Moles/Vol] 4.3 mmol/L Normal 3.5-5.1 [facility] Comment on above: Performed By: #### B MP ####[facility] [address] [place], [place] [address]Dr. Raimundo Rayo Sodium [Moles/Vol] 139 mmol/L Normal 136-145 [facility] Comment on above: Performed By: #### B MP ####[facility] [address] [place], [place] [address]Dr. Raimundo Rayo Urea nitrogen [Mass/Vol] 10.0 mg/dL Normal 7.0-18.0 [facility] Comment on above: Performed By: #### B MP ####[facility] [address] [place], [place] [address]Mg. Raimundo Rayo Urea nitrogen/Creatini ne [Mass ratio] 18.9 mg/mg Normal [facility] Comment on above: Performed By: #### B MP ####[facility] [address] [place], [place] [address]Kr. Raimundo Rayo PT Outpatient Time Spent Wit [...] PT Therapeutic Exercise Time : 45 minutes [place] Therapeutic Exercise Units : 3 units PT Total Timed Code Treatment Units : 3 units PT Total Timed Code Tx Minutes : 45 minutes 8 Min Rule Unit Check PT OP : 3 units PT Total Treatment Time Rehab : 45 minutes Ronald MS CCC/MOLDING MACHINE TENDER, Carolyn - 12/31/2022 10:23 EST 8 Min Rule Unit Difference PT OP : 0 Meredith Menendez PTA - 12/21/2022 9:14 EST Normal [facility] AMB PODIATRY Physician Progr ess Noteon [...] Est Pt Mod MDM / 30-39 min 81771, 12/19/2022 08:19:00 EST, Osteochondral defect of distal tibia / Avascular necrosis of the talus / Right ankle pain / Acute lumbar radiculopathy 2. Avascular necrosis of the talus M87.076 Ordered: AMB Office/Outpt Est Pt Mod MDM / 30-39 min 72188, 12/19/2022 08:19:00 EST, Osteochondral defect of distal tibia / Avascular necrosis of the talus / Right ankle pain / Acute lumbar radiculopathy 3. Right ankle pain M25.571 Ordered: AMB Office/Outpt Est Pt Mod MDM / 30-39 min 12184, 12/19/2022 08:19:00 EST, Osteochondral defect of distal tibia / Avascular necrosis of the talus / Right ankle pain / Acute lumbar radiculopathy 4. Acute lumbar radiculopathy M54.16 Ordered: AMB Office/Outpt Est Pt Mod MDM / 30-39 min 54296, 12/19/2022 08:19:00 EST, Osteochondral defect of distal [...] anxiety an (more content not included)... Normal [facility] Ambulatory Clinical Summaryo n 12-19-2022 Ambulatory [...] Ortho F/U - (45) Saturday Meredith D ([place]) (1) December 21, 2022 08:00 am EDT LW PT [address] [facility] [address] PMR Ortho F/U - (45) Saturday Meredith D ([place]) (1) December 25, 2022 08:45 am EDT LW PT [address] [facility] [address] PMR Ortho F/U - (45) Saturday Mirza D (PT) (2) December 28, 2022 09:00 am EDT LW PT [address] [place] [address] PMR Ortho F/U - (45) Saturday Meredith D ([place]) (1) January 01, 2023 09:00 am EDT LW PT [address] [facility] [address] PMR Ortho F/U - (45) Saturday Mirza D (PT) (2) January 04, 2023 09:00 am EDT LW PT [address] [facility] [address] PMR Ortho F/U - (45) Saturday Mirza D (PT) (2) January 09, 2023 09:00 am EDT LW PT [address] [facility] [address] Medications What How Much When Why Instructions [...] 9-1-1 to get immediate medical attention! Normal [facility] Comprehensive Intake - Texto n 12-19-2022 [...] in, 165 cm) Body Mass Index Measured Maldivian : 43.59 kg/m2 BSA Maldivian : 2.33 m2 Anastacia Lowe LPN - [...] living, hemodialysis, infusion clinic, penitentiary, assisted living, mcc, homeless jail, etc.)? : No Anastacia Lowe LPN - [...] Lowe LPN - 12/19/2022 13:50 EST Normal [facility] PT Outpatient Time Spent Wit h Pt-Texton 12-07-2022 PT Outpatient Time Spent With Pt-Text PT Outpatient Time Spent With Patient Entered On: 12/07/2022 14:35 EST Performed On: 12/07/2022 14:33 EST by Meredith Menendez PTA Time Spent with Patient - Outpatient PT Time In : 13:30 EST PT Time Out : 14:15 EST PT Therapeutic Exercise Time : 45 minutes [place] Therapeutic Exercise Units : 3 units PT [...] Menendez PTA - 12/07/2022 14:33 EST Normal [facility] PT Outpatient Time Spent Wit h Pt-Texton 11-30-2022 PT Outpatient Time Spent With Pt-Text PT Outpatient Time Spent With Patient Entered On: 11/30/2022 17:35 EST Performed On: 11/30/2022 17:34 EST by Meredith Menendez PTA Time Spent with Patient - Outpatient PT Time In : 16:45 EST PT Time Out : 17:30 EST PT Therapeutic Exercise Time : 35 minutes [place] Therapeutic Exercise Units : 2 units PT Soft Tissue Mobility Time : 10 minutes [place] Soft Tissue Mobility Units : 1 units PT Total Timed Code Treatment Units : 3 units PT Total Timed Code Tx Minutes : 45 minutes 8 Min Rule Unit Check PT OP : 3 units PT Total Treatment Time Rehab : 45 minutes 8 Min Rule Unit Difference PT OP : 0 Meredith Menendez PTA - 11/30/2022 17:34 EST Normal [facility] PT Outpatient Time Spent Wit h Pt-Texton 11-27-2022 PT Outpatient Time Spent With Pt-Text PT Outpatient Time Spent With Patient Entered On: 11/27/2022 13:16 EST Performed On: 11/23/2022 9:30 EST by Meredith Menendez PTA Time Spent with Patient - Outpatient PT Time In : 09:30 EST PT Time Out : 10:15 EST PT Therapeutic Exercise Time : 45 minutes [place] Therapeutic Exercise Units : 3 units PT Total Timed Code Treatment Units : 3 units PT Total Timed Code Tx Minutes : 45 minutes 8 Min Rule Unit Check PT OP : 3 units PT Total Treatment Time Rehab : 45 minutes 8 Min Rule Unit Difference PT OP : 0 Meredith Menendez PTA - 11/27/2022 13:15 EST Normal [facility] CT ANKLE RT WO CONon 18-2 [...] by: [place] NIX Date: 2022-11-21 16:[address] [facility] PT Outpatient Time Spent Wit h Pt-Texton 11-09-2022 PT Outpatient Time Spent With Pt-Text PT Outpatient Time Spent With Patient Entered On: 11/09/2022 17:32 EST Performed On: 11/09/2022 10:30 EST by Meredith Menendez PTA Time Spent with Patient - Outpatient PT Time In : 09:45 EST PT Time Out : 10:30 EST PT Therapeutic Exercise Time : 15 minutes [place] Therapeutic Exercise Units : 1 units PT Soft Tissue Mobility Time : 22 minutes [place] Soft Tissue Mobility Units : 1 units PT Iontophoresis Time : 8 minutes [place] Iontophoresis Units : 1 units PT Total Timed Code Treatment Units : 3 units PT Total Timed Code Tx Minutes : 45 minutes 8 Min Rule Unit Check PT OP : 3 units PT Total Treatment Time Rehab : 45 minutes 8 Min Rule Unit Difference PT OP : 0 Meredith Menendez PTA - 11/09/2022 17:29 EST Normal [facility] PT Outpatient Historical Rock a - Texton 2022 PT Outpatient Historical Data - Text PT Outpatient Historical Data Entered On: 2022 10:15 EST Performed On: 2022 10:15 EST by Meredith Menendez PTA PT Outpatient Historical Data Otorhinolaryngologist Goals : Yes Plan : Yes Manual Therapy : Yes Therapeutic Exercises : Yes Total Visit Count : 28 Precautions/Special Notes : 11 Calf -3 KE -5 soleus INV 14, EV 5 STN 4, ff/RF 7 1st MTP 34 deg Left calf KE 5 KF 6 Strength grossly 4/5 except Inver -4/5; tenderness HL and TIB Post. 09/10/22 DF KE 2 KF 3 Meredith Menendez PTA - 2022 10:15 EST Otorhinolaryngologist Goals - Historical PT Outpt Pt Goal [...] prep Descriptor : 15 15 Shon PALACIO, [facility] 2022 10:15 EST Shon PALACIO, Meredith 2022 [...] Shon PALACIO, Meredith 2022 10:15 EST Shon [place], Meredith 2022 10:15 EST Exercise 5 Exercise [...] Shon PALACIO, Meredith 2022 10:15 EST Shon [place], Meredith 2022 10:15 EST Shon [place], Meredith 2022 10:15 EST Shon [place], Meredith - 2022 10:15 EST Exercise 9 Exercise 10 Exercise 11 Exercise 12 Exercise : Forward step downs Half dome PF/DF, INV/EV, CW/CCW Bilateral FWD stretch LAQ/ HS curls Repetition/Time : Resist or Assist : 2.5#/green Not Performed : X Comment : 2 then 4 tibial FWD translation Shon [place], Meredith - 2022 10:15 EST Shon [place], Meredith - 2022 10:15 EST Shon [place], Meredith - 2022 10:15 EST Shon [place], Meredith - 2022 10:15 EST Exercise 14 Exercise 15 Exercise 16 Exercise 17 Exercise : Upright bike True Ruth Strap Calf Stretch KE and KF Half dome PWB alphabet Repetition/Time : 30x3 Resist or Assist : 3 115# Not Performed : X X Comment : Shon [place], Meredith - 2022 10:15 EST Shon [place], Meredith - 2022 10:15 EST Shon [place], Meredith - 2022 10:15 EST Shon [place], Meredith - 2022 10:15 EST Exercise 18 Exercise 20 Exercise 22 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, 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; athletic tape to foot to relieve PF and to soleus Gait trianing with B walking sticks Repetition/Time : done Resist or Assist : Not Performed : Comment : Shon [place], Meredith - 2022 10:15 EST Shon [place], Meredith - 2022 10:15 EST Shon [place], Meredith - 2022 10:15 EST Normal [facility] PT Outpatient Time Spent Wit h Pt-Texton 2022 PT Outpatient Time Spent With Pt-Text PT Outpatient Time Spent With Patient Entered On: 2022 10:59 EST Performed On: 2022 10:59 EST by Meredith Menendez PTA Time Spent with Patient - Outpatient PT Time In : 10:15 EST PT Time Out : 11:00 EST PT Therapeutic Exercise Time : 45 minutes [place] Therapeutic Exercise Units : 3 units PT [...] Menendez PTA - 2022 10:59 EST Normal [facility] Office Visit (Family Gallito cordova)on 09-11-2022 [...] Medication NameInstr (more content not included)... Normal [facility] Office Visit (Family Medicin e)on 08-20-2022 Follow-up [...] Evaluate AND Treat Status: Active Requested for: [id number] AMA Intake Activity Log Entry by kyle montes ([email or web address]) on 2022-07-24 10:13 Status Change: To Closed - Unable To Schedule[facility] wants her [facility] [...] w/ Tomosynthesis; Status:Hold For - Scheduling; Requested for:[id number]; Radiologist to Determine Optimal Study : Y [...] Provider Impressions By signing my name below, ICynthia Scribe, attest that this documentation has been prepared [...] booster. Patient would like a referral to ob-gynecology teacher. Patient reports she has lost weight 55 [...] Respiratory: no (more content not included)... Normal [facility] CORONAVIRUS 2019, SCREEN ASY MPTOMATICon 01-23-2022 SARS-CoV-2 (COVID-19) RNA MEKA+probe Ql (Unsp spec) Not detected Normal Not Detected [facility] Comment on above: Result Comment: . This [...] patient management decisions. Fact sheet for providers: https://www.fda.gov/media/560518/download Fact sheet for patients: https://www.fda.gov/media/653122/download This test has received FDA Emergency Use Authorization (EUA) and has been verified by [facility] ([facility]). This test is only authorized for the duration of time that circumstances exist to justify the authorization of the emergency use of in vitro diagnostic tests for the detection of SARS-CoV-2 virus and/or diagnosis of COVID-19 infection under section 564(b)(1) of the Act, 21 U.S.C. 360bbb-3(b)(1), unless the authorization is terminated or revoked sooner. [facility] is certified under CLIA-88 as qualified to perform high complexity testing. Testing is performed in the [facility] laboratories located at [address] [place] [address]. Performed By: #### C OVSC #### [address] [place] [address] Covid 19 Resultson 2 SARS-CoV-2 (COVID-19) RNA [...] may also be contacted by the [facility] to see if any of your [...] or Naproxen (Aleve) can also be used. Aqcz-wnr-yhdxaja cough and cold medicines can be used according to the instructions on the package. Some svpk-fcp-bbgrgny medicines also contain acetaminophen. Make sure you [...] water are not available, use alcohol-based hand foreign food specialty cook. Avoid touching your eyes, nose, and mouth [...] 24 stanley (more content not included)... Normal [facility] CORONAVIRUS 2019, SCREEN ASY MPTOMATICon 01-22-2022 Lab Specimen Source Nasal, Nasopharyngeal Normal [facility] Comment on above: Performed By: #### C OVSC #### [facility] [address] [place] [address] Coronavirus 2019 RNA by PCR, Screening Asymptomticon 01-22-2022 Coronavirus 2019 RNA by PCR, Screening Asymptomtic Not detected Normal See Below HY-Ftwjlkm-Te stlake [place] 400 DO Work Phone: Comment [...] make patient management decisions.Fact sheet for providers: https://www.fda.gov/media/938473/downloadFact sheet for patients: https://www.fda.gov/media/610998/downloadThis test has received FDA Emergency Use Authorization (EUA) and has been verified by [facility] ([facility]). This test is only authorized for the duration of time that circumstances exist to justify the authorization of the emergency use of in vitro diagnostic tests for the detection of SARS-CoV-2 virus and/or diagnosis of COVID-19 infection under section 564(b)(1) of the Act, 21 U.S.C. 360bbb-3(b)(1), unless the authorization is terminated or revoked sooner. [facility] is certified under CLIA-88 as qualified to perform high complexity testing. Testing is performed in the [facility] laboratories located at [address] [place] [address]. ABDOMEN AP VIEWon 01-19-2022 ABDOMEN AP VIEW Patient Name: SERA WOO STUDY: ABDOMEN AP VIEW INDICATION: kidney stones N20.0: Kidney stones. COMPARISON: January 19 ACCESSION NUMBER(S): [id number] ORDERING CLINICIAN: ABI KARIMI FINDINGS: Postsurgical changes right upper quadrant. Bowel gas pattern unremarkable. No pathologic calcifications noted. IMPRESSION: Grossly unremarkable radiographs of the abdomen. Electronically signed by: FRANCIA HINKLE MD Normal [facility] BASIC METABOLIC PANELon 01-02 Anion gap [Moles/Vol] 12 mmol/L Normal 10 - 20 [facility] Comment on above: Performed By: #### B MP #### [address] [address] Calcium [Mass/Vol] 9.3 mg/dL Normal 8.6 - 10.3 [facility] Comment on above: Performed By: #### B MP #### [address] [address] Chloride [Moles/Vol] 104 mmol/L Normal 98 - 107 [facility] Comment on above: Performed By: #### B MP #### [address] [address] Creatinine [Mass/Vol] 0.61 mg/dL Normal 0.50 - 1.05 [facility] Comment on above: Performed By: #### B MP #### [address] [address] eGFR FEMALE >90 Normal >90 [facility] Comment on above: Result Comment: CALC ULATIONS OF ESTIMATED GFR ARE PERFORMED USING THE 2020 CKD-EPI STUDY REFIT EQUATION WITHOUT THE RACE VARIABLE FOR THE IDMS-TRACEABLE CREATININE METHODS. https://jasn.asnjournals.org/content/early//ASN.6848371996 Performed By: #### B MP #### [address] [address] Glucose [Mass/Vol] 96 mg/dL Normal 74 - 99 [facility] Comment on above: Performed By: #### B MP #### [address] [address] HCO3 (Bld) [Moles/Vol] 24 mmol/L Normal 21 - 32 [facility] Comment on above: Performed By: #### B MP #### [address] [address] Potassium [Moles/Vol] 4.2 mmol/L Normal 3.5 - 5.3 [facility] Comment on above: Performed By: #### B MP #### [address] [address] Sodium [Moles/Vol] 136 mmol/L Normal 136 - 145 [facility] Comment on above: Performed By: #### B MP #### [address] [address] Urea nitrogen [Mass/Vol] 11 mg/dL Normal 6 - 23 [facility] Comment on above: Performed By: #### B MP #### [address] [address] CBCon 01-19-2022 Erythrocyte distribution width (RBC) [Ratio] 14.5 % Normal 11.5 - 14.5 [facility] Comment on above: Performed By: #### C BC #### [address] [address] Hematocrit (Bld) [Volume fraction] 43.9 % Normal 36.0 - 46.0 [facility] Comment on above: Performed By: #### C BC #### [address] [address] Hemoglobin (Bld) [Mass/Vol] 13.8 g/dL Normal 12.0 - 16.0 [facility] Comment on above: Performed By: #### C BC #### [address] [address] MCHC (RBC) [Mass/Vol] 31.4 g/dL Low 32.0 - 36.0 [facility] Comment on above: Performed By: #### C BC #### [address] [address] MCV (RBC) [Entitic vol] 88 fL Normal 80 - 100 [facility] Comment on above: Performed By: #### C BC #### [address] [address] NUCLEATED RBC 0.0 /100 WBC Normal 0.0 - 0.0 [facility] Comment on above: Performed By: #### C BC #### [address] [address] Platelets (Bld) [#/Vol] 348 10*3/uL Normal 150 - 450 [facility] Comment on above: Performed By: #### C BC #### [address] [address] RBC 5.00 x10E12/L Normal 4.00 - 5.20 [facility] Comment on above: Performed By: #### C BC #### [address] [address] WBC (Bld) [#/Vol] 7.6 10*3/uL Normal 4.4 - 11.3 [facility] Comment on above: Performed By: #### C BC #### [address] [place] [address] COAGULATION SCREENon 022 aPTT Coag (Bld) [Time] 31 s Normal 26 - 39 [facility] Comment on above: Result Comment: Note new reference range as of 10/03/2021 at 10:00am. Performed By: #### C OAGS #### [address] [place] [address] PT Coag (PPP) [Time] 11.2 s Normal 9.8 - 13.4 [facility] Comment on above: Result Comment: Note new reference range as of 10/03/2021 at 10:00am. Performed By: #### C OAGS #### [address] [place] [address] PT, INR 1.0 Normal 0.9 - 1.1 [facility] Comment on above: Performed By: #### C OAGS #### [address] [place] [address] Cult, Urineon 01-19-2022 Bacteria identified Cx Nom (U) MV-Unehgnw-Js [employer] 400 DO Work Phone: Laboratory - Chemistry and C hemistry - challengeon 01-19-2022 Anion gap [Moles/Vol] 12 mmol/L 10 - 20 JM-Wbiemfl-Ur [employer] 400 DO Work Phone: Calcium [Mass/Vol] 9.3 mg/dL 8.6 - 10.3 EK-Zgeiutu-Nb [employer] 400 DO Work Phone: Chloride [Moles/Vol] 104 mmol/L 98 - 107 UE-Grknnor-Au [employer] 400 DO Work Phone: CO2 [Moles/Vol] 24 mmol/L 21 - 32 MP-Urolog y-We [employer] 400 DO Work Phone: Creatinine [Mass/Vol] 0.61 mg/dL See Below YG-Vtdamrf-Bm stfranko [place] 400 DO Work Phone: Comment on above: Reference Range: 0.5 0 - 1.05 Glucose [Mass/Vol] 96 mg/dL 74 - 99 WM-Kyjqenp-Qf stfranko MOTLEYW 400 DO Work Phone: Potassium [Moles/Vol] 4.2 mmol/L 3.5 - 5.3 FS-Qxsngof-Pk stfranko MOTLEYW 400 DO Work Phone: Sodium [Moles/Vol] 136 mmol/L 136 - 145 WF-Pxqbeoz-Kj stfranko MOTLEYW 400 DO Work Phone: Urea nitrogen [Mass/Vol] 11 mg/dL 6 - 23 SE-Opomztz-Eb stfranko [place]LEY 400 DO Work Phone: Laboratory - Coagulationon 0 01-19-2022 aPTT Coag (PPP) [Time] 31 s 26 - 39 YU-Ckqednd-Ps rupinder [place]LEY 400 DO Work Phone: Comment on above: Note new reference r yonny as of 10/03/2021 at 10:00am. INR Coag (PPP) [Relative time] 1.0 {INR} 0.9 - 1.1 YG-Mmiymzg-Zp rupinder [place]LEY 400 DO Work Phone: PT Coag (PPP) [Time] 11.2 s 9.8 - 13.4 GG-Tpyjeqq-Bo rupinder [place]LEY 400 DO Work Phone: Comment on above: Note new reference r yonny as of 10/03/2021 at 10:00am. Laboratory - Hematology and Cell countson 01-19-2022 Erythrocyte distribution width (RBC) [Ratio] 14.5 % See Below OP-Akbpxnq-Qt rupinder [place] 400 DO Work Phone: Comment on above: Reference Range: 11. 5 - 14.5 Hematocrit (Bld) [Volume fraction] 43.9 % See Below UZ-Vidsygq-Xn stlake [employer] 400 DO Work Phone: Comment on above: Reference Range: 36. 0 - 46.0 Hemoglobin (Bld) [Mass/Vol] 13.8 g/dL See Below LN-Qxapqfw-Hk stfranko MOTLEYW 400 DO Work Phone: Comment on above: Reference Range: 12. 0 - 16.0 MCHC (RBC) [Mass/Vol] 31.4 g/dL below low threshold See Below QT-Hgctxnz-Bj stfranko MOTLEYW 400 DO Work Phone: Comment on above: Reference Range: 32. 0 - 36.0 MCV (RBC) [Entitic vol] 88 fL 80 - 100 AG-Rlhgtfw-Ra stlatraci [employer] 400 DO Work Phone: Platelets (Bld) [#/Vol] 348 10*3/uL 150 - 450 XK-Khntuep-Sc stfranko [employer]LEY 400 DO Work Phone: RBC (Bld) [#/Vol] 5.00 {x10E12/L} See Below MP -Urology-We stfranko SJW 400 DO Work Phone: Comment on above: Reference Range: 4.0 0 - 5.20 WBC (Bld) [#/Vol] 7.6 10*3/uL 4.4 - 11.3 MP-Uro logy-We rupinder [employer]LEY 400 DO Work Phone: No Panel Informationon 01-19 >90 >90 DI-Bnfsndn-Lf rupinder [employer] 400 DO Work Phone: Comment on above: CALCULATIONS OF BONNY MATED GFR ARE PERFORMED USING THE 2020 CKD-EPI STUDY REFIT EQUATION WITHOUT THE RACE VARIABLE FOR THE IDMS-TRACEABLE CREATININE METHODS.https://jasn.asnjournals.org/content//ASN.20 97706241 0.0 {/100_WBC} 0.0 - 0.0 MP-Urology -We rupinder MOTLEY 400 DO Work Phone: Radiologyon 01-19-2022 XR Abdomen AP Normal MP-Urology- We rupinder SJW 400 DO Work Phone: URINE CULTURE,BACTERIALon URINE CULTURE,BACTERIAL PATIENT: SERA WOO LOCATION: [facility]#: [id number] : 76 AGE: SEX: F ORDERED BY: ABI KARIMI SOURCE: URINE COLLECTED: 01/19/22 09:45 ANTIBIOTICS AT JAIRON.: RECEIVED : 01/19/22 18:45 SITE: Unspecified R E S U L T S URINE CULTURE,BACTERIAL FINAL 01/20/22 11:20 MIXED URETHRAL ELIUD. Normal [facility] Comment on above: Performed By: #### U RINC #### [facility] [address] [place] [address] CORONAVIRUS 2019, SCREEN ASY MPTOMATICon 01-15-2022 DATE OF SYMPTOM ONSET [YYYYMMDD]? Canceled Normal [facility] Comment on above: Order Comment: TEST CORONAVIRUS 2018, SCREEN ASYMPTOMATIC WAS CANCELLED, 01/15/2022 11:50 Updated order placed for STAT test. Performed By: #### C OVSC #### [facility] [address] [place] [address] Order Comment: TEST CORONAVIRUS 2018, SCREEN ASYMPTOMATIC WAS CANCELLED, 01/15/2022 11:49 Updated order placed for STAT test. Lab Specimen Source Nasal, Nasopharyngeal Normal [facility] Comment on above: Order Comment: TEST CORONAVIRUS 2018, SCREEN ASYMPTOMATIC WAS CANCELLED, 01/15/2022 11:49 Updated order placed for STAT test. Performed By: #### C OVSC #### [facility] [address] [place] [address] SARS-CoV-2 (COVID-19) RNA MEKA+probe Ql (Unsp spec) Canceled Normal [facility] Comment on above: Order Comment: TEST CORONAVIRUS [...] patient management decisions. Fact sheet for providers: https://www.fda.gov/media/182984/download Fact sheet for patients: https://www.fda.gov/media/307940/download This test has received FDA Emergency Use Authorization (EUA) and has been verified by [facility] ([facility]). This test is only authorized for the duration of time that circumstances exist to justify the authorization of the emergency use of in vitro diagnostic tests for the detection of SARS-CoV-2 virus and/or diagnosis of COVID-19 infection under section 564(b)(1) of the Act, 21 U.S.C. 360bbb-3(b)(1), unless the authorization is terminated or revoked sooner. [facility] is certified under CLIA-88 as qualified to perform high complexity testing. Testing is performed in the [facility] laboratories located at [address] [place] [address]. Performed By: #### C OVSC #### [address] [place] [address] Order Comment: TEST CORONAVIRUS 2018, SCREEN ASYMPTOMATIC WAS CANCELLED, 01/15/2022 11:49 Updated order placed for STAT test. CORONAVIRUS 2018, SCREEN ASY MPTOMATICon 01-12-2022 Lab Specimen Source Nasal, Nasopharyngeal Normal [facility] Comment on above: Order Comment: TEST CORONAVIRUS 2018, SCREEN ASYMPTOMATIC WAS CANCELLED, 01/15/2022 11:50 Updated order placed for STAT test. Performed By: #### C OVSC #### [place] [address] CORONAVIRUS 2018, SCREEN ASY MPTOMATICon 01-08-2022 Lab Specimen Source Nasal, Nasopharyngeal Normal [facility] Comment on above: Order Comment: TEST CORONAVIRUS 2019, SCREEN ASYMPTOMATIC WAS CANCELLED, 01/15/2022 11:50 Updated order placed for STAT test. Performed By: #### C OVSC #### [facility] [address] [place] [address] Chart Updateon 01-03-2022 Chart Update Chart Update CT images from [facility] received Right upper pole non-obstructing stone. Too small to determine HU Skin to stone distance 13cm. Signatures Electronically signed by : Abi Karimi MD; Jan 03 2022 8:30PM EST (Author) Normal [employer] Office Visit (Urology)on Follow-up visit Diagnoses/Problems Assessed Kidney stones (592.0) (N20.0) Orders Kidney stones Xray Abdomen AP View; Status:Hold For - Scheduling,Retrospective Authorization; Requested for:11Jan2022; Perform:[facility]; Due:11Apr2022; Last Updated By:Katie Scott; 12/28/2021 3:25:30 PM;Ordered; For:Kidney stones; Ordered By:Abi Karimi; Radiologist to Determine Optimal Study : Y What are the patient's signs and symptoms? : kidney stones Provider Impressions 41-year-old female see me regarding kidney stones Kindly referred by Cathleen Sanz [facility]: Obesity, BMI greater than 50, depression, hypertension Saw Cathleen Sanz 12/18. Right renal colic beginning end of November, subsided to more achy tolerable pain. No longer symptomatic. First stone episode. CTU from [facility] 12/11/2021: Report only available. 5 [...] telehealth visit. kidney stones History of Present Cmpczaw39-euvn-nct female see me regarding kidney stones Kindly referred by Cathleen Sanz [facility]: Obesity, BMI greater than 50, depression, hypertension Saw Cathleen Sanz 12/18. Right renal colic beginning end of November, subsided to more achy tolerable pain. No longer symptomatic. First stone episode. CTU from [facility] 12/11/2021: Report only available. 5 [...] daily I (more content not included)... Normal [employer] CORONAVIRUS 2018, SCREEN ASY MPTOMATICon 12-20-2021 Lab Specimen Source Nasal, Nasopharyngeal Normal [facility] Comment on above: Order Comment: TEST CORONAVIRUS 2018, SCREEN ASYMPTOMATIC WAS CANCELLED, 01/15/2022 11:50 Updated order placed for STAT test. Performed By: #### C OVSC #### [facility] [address] [place] [address] IO UA (automated w/o microsc opy)on 12-18-2021 Protein (U) [Mass/Vol] Negative JD[facility]bii[facility]Cw [facility] [address] Work Phone: IO UA (automated w/o microscopy) (+)small - 15 MQ-Gcurifr-Us [place] [address] Work Phone: IO UA (automated w/o microscopy) Negative XD-Jajnkeb-Ko [place] [address] Work Phone: IO UA (automated w/o microscopy) Normal (0.2-1.0 mg/dl) MG-Urolog y-We [place] [address] Work Phone: IO UA (automated w/o microscopy) 8.0 1 UR-Vgcmfwf-Ml [place] [address] Work Phone: IO UA (automated w/o microscopy) Trace YT-Ruzlwaq-It [place] [address] Work Phone: IO UA (automated w/o microscopy) 1.025 1 XM-Vhlqfrh-Yl [place] [address] Work Phone: IO UA (automated w/o microscopy) Clear SR-Chfcgtp-Wa [place] [address] Work Phone: IO UA (automated w/o microscopy) Yellow ND-Xwekvgk-Fz [place] [address] Work Phone: IO Ultrasound, measurement p ost-void resid urine and/or bl cap; no imagon 12-18-2021 IO Ultrasound, measurement post-void resid urine and/or bl cap; no imag 5 mL ZJ-Aamwhhm-Vy [place] [address] Work Phone: Office Visit (Urology)on Follow-up visit Diagnoses/Problems Assessed Kidney stones (592.0) (N20.0) Renal colic (788.0) (N23) Right flank pain (789.09) (R10.9) Orders Hematuria IO Ultrasound, measurement post-void resid urine and/or bl cap; no imag; Status:Complete; Done: 18Dec2021 08:17AM Performed:In Office; Due:[id number];Ordered; For:Hematuria; Ordered By:Arleth Sanz; Kidney stones IO UA (automated w/o microscopy); Status:Complete; Done: 18Dec2021 08:22AM Performed:In Office; Due:56Owt7135;Ordered; For:Kidney stones; Ordered By:Arleth Sanz; Renal colic, Right flank pain Start: Ketorolac Tromethamine 10 MG Oral Tablet; TAKE 1 TABLET EVERY 6 HOURS WITH FOOD Rx By: Arleth Sanz; Dispense: 5 Days ; #:20 Tablet; Refill: 0;For: Renal colic, Right flank pain; NILSON = N; Verified Transmission to [facility] [address]2026; Last Updated By: SystemSatya Inti Dharma; 12/18/2021 8:45:56 AM Patient Discussion/Summary 41-year-old female [...] Chief Complaint Kidney Stones History of Present Slapmcr15g female who presents for evaluation of nephrolithiasis, [...] (462) (J02. (more content not included)... Normal [employer] Tobacco Screening.on 022 Fall risk assessment a) No falls within the last year LL-Ykfkziw-Sj [place] [address] Work Phone: Tobacco use status [facility] b) No YT-Csvrkpf-Dp [place] [address] Work Phone: Cult, Urineon 12-11-2021 Bacteria identified Cx Nom (U) [facility] Work Phone: IO UA (automated w/o microsc opy)on 12-11-2021 Protein (U) [Mass/Vol] Negative Normal [facility] Work Phone: IO UA (automated w/o microscopy) (+)small - 15 Abnormal [facility] Work Phone: IO UA (automated w/o microscopy) Negative Normal [facility] Work Phone: IO UA (automated w/o microscopy) Normal (0.2-1.0 mg/dl) Normal [facility] Work Phone: IO UA (automated w/o microscopy) 6.0 1 [facility] Work Phone: IO UA (automated w/o microscopy) (++)moderate - 40 Abnormal [facility] Work Phone: IO UA (automated w/o microscopy) 1.020 1 [facility] Work Phone: IO UA (automated w/o microscopy) Hazy [facility] Work Phone: IO UA (automated w/o microscopy) Soila [facility] Work Phone: Office Visit ([facility])on 12-11-2021 Follow-up visit Diagnoses/Problems Right flank pain (789.09) (R10.9) Hematuria (599.70) (R31.9) Renal colic (788.0) (N23) Morbid obesity with BMI of 50.0-59.9, adult (278.01,V85.43) (E66.01,Z68.43) Orders Hematuria Start: Ciprofloxacin HCl - 500 MG Oral Tablet; one by mouth twice a day for 7 days Cult, Urine; Status:Resulted - Requires Verification,Retrospective Authorization; Done: 17Mgt3000 04:31PM Start: Ibuprofen 800 MG Oral Tablet; TAKE 1 TABLET EVERY 8 HOURS WITH FOOD NEEDED Start: Tamsulosin HCl - 0.4 MG Oral Capsule (Flomax); TAKE 1 CAPSULE Daily Hematuria, Renal colic, Right flank pain CT Abdomen and Pelvis without Contrast; Status:Hold For - Scheduling; Requested for:03Fui3361; Patient taking Metformin or Derivatives? : No Radiologist to Determine Optimal Study : Y What are the patient's signs and symptoms? : Right-sided flank pain worse after urinating moderate blood in urine rule out kidney stone Right flank pain IO UA (automated w/o microscopy); Status:Resulted - Requires Verification,Retrospective Authorization; Done: 20Qtm7703 12:37PM Patient Discussion/Summary Urine test in office [...] CT Abdomen and Pelvis WO contrast Normal -[facility] Work Phone: URINE CULTURE,BACTERIALon URINE CULTURE,BACTERIAL PATIENT: SERA WOO LOCATION: [facility] BILL#: [id number] : 76 AGE: SEX: F ORDERED BY: HETAL ALONSO SOURCE: URINE COLLECTED: 12/11/21 16:31 ANTIBIOTICS AT JAIRON.: RECEIVED : 12/12/21 00:54 SITE: Clean Catch/Voided R E S U L T S URINE CULTURE,BACTERIAL FINAL 12/12/21 17:23 NO SIGNIFICANT GROWTH. Normal [facility] Comment on above: Performed By: #### U RINC #### [facility] [address] [place] [address] XR foot RT min 3V*on 021 XR foot RT min 3V* [facility] [place] [address] [place] [address] XRay Report Signed Patient: Sera Woo MR#: [id number] 73 : 1980 Acct:[id number] Age/Sex: 40 / F ADM Date: 04/04/21 Loc: [facility] Room: Type: [facility] Attending Dr: Francia Collazo DPM, MS Ordering Provider: Francia Collazo DPM, MS Date of Service: 04/04/21 XR/XR ankle RT min 3V*: M25.571 ([id number]) XR/XR foot RT min 3V*: M79.671 Copies [...] Saenz Jr., M.D.04/04/2021 2:40 PM Dictation Location: [place] [address] Transcribed By: [facility] 04/04/21 1440 Dictated By: Mynor Saenz Jr, MD 04/04/21 1414 Signed By: 04/04/21 1440 [facility] XR ankle RT min 3V*on 2020 XR ankle RT min 3V* [facility] [place] [place] [address] XRay Report Signed Patient: Sera Woo MR#: [id number] 73 : 1980 Acct:[id number] Age/Sex: 40 / F ADM Date: 03/21/21 Loc: [facility] Room: Type: [facility] Attending Dr: Francia Collazo DPM MS Ordering Provider: Francia Collazo DPM, MS [...] Chelsey Bobo M.D.03/21/2021 11:41 AM Dictation Location: [facility] Transcribed By: [facility] 03/21/21 1141 Dictated By: Chelsey Bobo MD 03/21/21 1139 Signed By: 03/21/21 1141 [facility] XR ankle RT min 3V*on 2020 XR ankle RT min 3V* [facility] [place] [address] [place] [address] XRay Report Signed Patient: Sera Woo MR#: [id number] 73 : 1980 Acct:[id number] Age/Sex: 40 / F ADM Date: 02/21/21 Loc: [facility] Room: Type: [facility] Attending Dr: Francia Collazo DPM, MS Ordering Provider: Francia Collazo DPM, MS Date of Service: 02/21/21 XR/XR ankle RT min 3V*: M25.571 ([id number]) XR/XR foot RT min 3V*: M79.671 Copies [...] Chelsey Bobo M.D.02/21/2021 12:11 PM Dictation Location: [place] [address] Transcribed By: [facility] 02/21/21 1211 Dictated By: Chelsey Bobo MD 02/21/21 1207 Signed By: 02/21/21 1211 [facility] Initial Visit (Orthopaedic S urgery)on 10-10-2020 [...] your surgery. Please call Pamela Dias at [phone] to schedule your surgery and if you have any further questions. Chief Complaint Pt here for right ankle pain. 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 She takes [place] nightly and Advil throughout the day but still states that her pain remains quite high. Past medical history of morbid obesity Past surgical history of open reduction of the talus right foot 04/12/[facility] Duran Family history noncontributory to presenting problem Social history non-smoker Medications include control pill, Advil and [place] REVIEW OF SYSTEMS Constitutional: no unplanned weight [...] or Percocet. She does do well with [place] and Dilaudid. We discussed with her that [...] voiced understanding and agreement. Note dictated with [employer] water systemsaccount specialist software, completed without full type editing to avoid delay. Vitals Vital Signs Recorded: [id number] 05:30PM Height5 ft 5 in Zitwil747 lb BMI Ezvdrdqsoa71.93 BSA Calculated2.31 Signatures Electronically signed by : Ebony Shah MD; Oct 10 2020 5:36PM EST (Author) Normal [employer] Social History Date Type Detail Facility Start: 10-11-2023 End: 12-27-2023 Exposure to SARS-CoV-2 (event) Not sure [facility] Start: 07-18-2023 End: 12-27-2023 Never a smoker Never a smoker [facility] Work Phone: Start: 07-18-2023 End: 12-27-2023 Sex Assigned At [facility] [employer] Other Start: 07-18-2023 End: 12-27-2023 Alcohol intake Current drinker of alcohol (finding) [facility] Work Phone: Start: 06-28-2023 Tobacco smoking status NHIS Never smoked tobacco [facility] Work Phone: Start: 06-28-2023 Tobacco use and exposure Smokeless tobacco non-user [facility] Work Phone: Start: 1980 Sex Assigned At Not on file [facility] Work Phone: Vital Signs Date Time Vital Sign Value Performing Clinician Facility 12-27-2023 11:24-0500 Body height 167.6 cm Hetal Alonso MD Work Phone: [facility] 12-27-2023 11:24-0500 Body mass index (BMI) [Ratio] 53.75 kg/m2 Hetal Alonso MD Work Phone: [facility] 12-27-2023 11:24-0500 Body temperature 98.01 [degF] Hetal Alonso MD Work Phone: [facility] 12-27-2023 11:24-0500 Body weight 151.05 kg Hetal Alonso MD Work Phone: [facility] 12-27-2023 11:24-0500 Diastolic blood pressure 80 mm[Hg] Hetal Alonso MD Work Phone: [facility] 12-27-2023 11:24-0500 Heart rate 80 /min Hetal Alonso MD Work Phone: [facility] 12-27-2023 11:24-0500 Systolic blood pressure 138 mm[Hg] Hetal Alonso MD Work Phone: 4(195)[phone] [place] [address] 10-21-2023 13:20-0500 Diastolic blood pressure 80 mm[Hg] Hetal Alonso MD Work Phone: 0(235)[phone] [place] [address] 10-21-2023 13:20-0500 Systolic blood pressure 130 mm[Hg] Hetal Alonso MD Work Phone: 6(836)714-803847 [place] [address] 10-21-2023 13:05-0500 Body height 167.6 cm Hetal Alonso MD Work Phone: 4(251)709-850347 [place] [address] 10-21-2023 13:05-0500 Body mass index (BMI) [Ratio] 53.75 kg/m2 Hetal Alonso MD Work Phone: 6(391)559-321347 [place] [address] 10-21-2023 13:05-0500 Body temperature 98.2 [degF] eHtal Alonso MD Work Phone: 5(060)080-406247 [place] [address] 10-21-2023 13:05-0500 Body weight 151.05 kg Hetal Alonso MD Work Phone: 6(187)063-791647 [place] [address] 10-21-2023 13:05-0500 Heart rate 92 /min Hetal Alonso MD Work Phone: 4(185)692-439647 [place] [address] 10-21-2023 13:05-0500 SaO2% (BldA) [Mass fraction] 96 % Hetal Alonso MD Work Phone: 3(516)369-251747 [place] [address] 06-28-2023 11:54-0400 Diastolic blood pressure 80 mm[Hg] Hetal Alonso MD Work Phone: 8(660)608-406948 [address] 06-28-2023 11:54-0400 Systolic blood pressure 130 mm[Hg] Hetal Alonso MD Work Phone: 4(502)[phone] [address] 06-28-2023 11:08-0400 Body mass index (BMI) [Ratio] 51.81 kg/m2 Hetal Alonso MD Work Phone: 5(573)285-822109 [place] [address] 06-28-2023 11:08-0400 Body temperature 97.81 [degF] Hetal Alonso MD Work Phone: 5(491)044-745548 [address] 06-28-2023 11:08-0400 Body weight 145.6 kg Hetal Alonso MD Work Phone: [facility] 06-28-2023 11:08-0400 Heart rate 94 /min Hetal Alonso MD Work Phone: [facility] 04-29-2023 10:45-0400 Body height 165.1 cm Evan Feliciano Other [facility] Other 04-29-2023 10:45-0400 Diastolic blood pressure 80 mm[Hg] Evan Feliciano Other [facility] Other 04-29-2023 10:45-0400 SaO2% (BldA) [Mass fraction] 98 % Evan Feliciano Other [facility] Other 04-29-2023 10:45-0400 Systolic blood pressure 140 mm[Hg] Evan Feliciano Other [facility] Other 04-05-2023 10:00-0400 Body weight 140.62 kg Evan Feliciano Other [facility] Other 04-05-2023 10:00-0400 SaO2% (BldA) [Mass fraction] 98 % Evan Feliciano Other [facility] Other 09-11-2022 10:28-0500 Body height 167.64 cm Hetal Alonso Work Phone: [facility] Work Phone: 09-11-2022 10:28-0500 Body mass index (BMI) [Ratio] 43.74 kg/m2 Hetal Alonso Work Phone: [facility] Work Phone: 09-11-2022 10:28-0500 Body surface area Derived from formula 2.28 m2 Hetal Alonso Work Phone: [facility] Work Phone: 09-11-2022 10:28-0500 Body temperature 96.9 [degF] Hetal Alonso Work Phone: [facility] Work Phone: 09-11-2022 10:28-0500 Body weight 122.93 kg Hetal Alonso Work Phone: [facility] Work Phone: 09-11-2022 10:28-0500 Diastolic blood pressure 76 mm[Hg] Hetal Alonso Work Phone: [facility] Work Phone: 09-11-2022 10:28-0500 Heart rate 79 /min Hetal Alonso Work Phone: [facility] Work Phone: 09-11-2022 10:28-0500 SaO2% (BldA) [Mass fraction] 100 % Hetal Alonso Work Phone: [facility] Work Phone: 09-11-2022 10:28-0500 Systolic blood pressure 124 mm[Hg] Hetal Alonso Work Phone: [facility] Work Phone: 08-20-2022 09:28-0400 Body height 167.64 cm Hetal Alonso Work Phone: [facility] Work Phone: 08-20-2022 09:28-0400 Body mass index (BMI) [Ratio] 43.9 kg/m2 Hetal Alonso Work Phone: [facility] Work Phone: 08-20-2022 09:28-0400 Body surface area Derived from formula 2.28 m2 Hetal Alonso Work Phone: [facility] Work Phone: 08-20-2022 09:28-0400 Body temperature 96.9 [degF] Hetal Alonso Work Phone: [facility] Work Phone: 08-20-2022 09:28-0400 Body weight 123.38 kg Hetal Alonso Work Phone: [facility] Work Phone: 08-20-2022 09:28-0400 Diastolic blood pressure 72 mm[Hg] Hetal Alonso Work Phone: [facility] Work Phone: 08-20-2022 09:28-0400 Heart rate 78 /min Hetal Alonso Work Phone: [facility] Work Phone: 08-20-2022 09:28-0400 SaO2% (BldA) [Mass fraction] 99 % Hetal Alonso Work Phone: [facility] Work Phone: 08-20-2022 09:28-0400 Systolic blood pressure 124 mm[Hg] Hetal Alonso Work Phone: [facility] Work Phone: 07-18-2022 09:42-0400 Body height 167.64 cm Hetal Alonso Work Phone: [facility] Work Phone: 07-18-2022 09:42-0400 Body mass index (BMI) [Ratio] 44.87 kg/m2 Hetal Alonso Work Phone: [facility] Work Phone: 07-18-2022 09:42-0400 Body surface area Derived from formula 2.3 m2 Hetal Alonso Work Phone: [facility] Work Phone: 07-18-2022 09:42-0400 Body weight 126.1 kg Hetal Alonso Work Phone: [facility] Work Phone: 07-18-2022 09:42-0400 Diastolic blood pressure 72 mm[Hg] Hetal Alonso Work Phone: [facility] Work Phone: 07-18-2022 09:42-0400 Heart rate 97 /min Hetal Alonso Work Phone: [facility] Work Phone: 07-18-2022 09:42-0400 SaO2% (BldA) [Mass fraction] 99 % Hetal Alonso Work Phone: [facility] Work Phone: 07-18-2022 09:42-0400 Systolic blood pressure 118 mm[Hg] Hetal Alonso Work Phone: [facility] Work Phone: 12-18-2021 08:10-0500 Body height 167.64 cm Hetal Alonso Work Phone: [facility] [place] [id number] Work Phone: 12-18-2021 08:10-0500 Body mass index (BMI) [Ratio] 51.65 kg/m2 Hetal Alonso Work Phone: [facility] [place] [id number] Work Phone: 12-18-2021 08:10-0500 Body surface area Derived from formula 2.44 m2 Hetal Alonso Work Phone: [facility] [id number] Work Phone: 12-18-2021 08:10-0500 Body temperature 96.9 [degF] Hetal Alonso Work Phone: [facility] [id number] Work Phone: 12-18-2021 08:10-0500 Body weight 145.15 kg Hetal Alonso Work Phone: FD[facility]My[facility]eobe[facility]ewlb[facility] [id number] Work Phone: 12-18-2021 08:10-0500 Diastolic blood pressure 99 mm[Hg] Hetal Alonso Work Phone: QX[facility]Duvundb[facility]Diogvbjj [facility] [id number] Work Phone: 12-18-2021 08:10-0500 Heart rate 106 /min Hetal Alonso Work Phone: TM-Qqkxqac-A[facility]ewqyw [facility] [id number] Work Phone: 12-18-2021 08:10-0500 Systolic blood pressure 155 mm[Hg] Hetal Alonso Work Phone: [facility]Ori[facility]ep[facility]ja [facility] [id number] Work Phone: 12-11-2021 12:24-0500 Body height 167.64 cm Hetal Alonso Work Phone: [facility] Work Phone: 12-11-2021 12:24-0500 Body mass index (BMI) [Ratio] 51.65 kg/m2 Hetal Alonso Work Phone: [facility] Work Phone: 12-11-2021 12:24-0500 Body surface area Derived from formula 2.44 m2 Hetal Alonso Work Phone: [facility] Work Phone: 12-11-2021 12:24-0500 Body temperature 98.3 [degF] Hetal Alonso Work Phone: [facility] Work Phone: 12-11-2021 12:24-0500 Body weight 145.15 kg Hetal Alonso Work Phone: [facility] Work Phone: 12-11-2021 12:24-0500 Diastolic blood pressure 80 mm[Hg] Hetal Alonso Work Phone: [facility] Work Phone: 12-11-2021 12:24-0500 Heart rate 80 /min Hetal Alonso Work Phone: [facility] Work Phone: 12-11-2021 12:24-0500 Systolic blood pressure 120 mm[Hg] Hetal Alonso Work Phone: [facility] Work Phone: 08-11-2021 15:04-0400 Body height 167.64 cm Hetal Alonso Work Phone: [facility] Work Phone: 08-11-2021 15:04-0400 Body mass index (BMI) [Ratio] 51.65 kg/m2 Hetal Alonso Work Phone: [facility] Work Phone: 08-11-2021 15:04-0400 Body surface area Derived from formula 2.44 m2 Hetal Alonso Work Phone: [facility] Work Phone: 08-11-2021 15:04-0400 Body temperature 98.8 [degF] Hetal Alonso Work Phone: [facility] Work Phone: 08-11-2021 15:04-0400 Body weight 145.15 kg Hetal Alonso Work Phone: [facility] Work Phone: 08-11-2021 15:04-0400 Diastolic blood pressure 78 mm[Hg] Hetal Hemal Alonso Work Phone: [facility] Work Phone: 08-11-2021 15:04-0400 Heart rate 108 /min Hetal Hemal Alonso Work Phone: [facility] Work Phone: 08-11-2021 15:04-0400 Heart rate 80 /min Hetal Hemal Alonso Work Phone: [facility] Work Phone: 08-11-2021 15:04-0400 Systolic blood pressure 142 mm[Hg] Hetaledison Alonso Work Phone: [facility] Work Phone: 08-11-2021 15:04-0400 Systolic blood pressure 130 mm[Hg] Hetaledison Alonso Work Phone: [facility] Work Phone: 03-24-2021 09:41-0400 Body mass index (BMI) [Ratio] 52.13 kg/m2 Hetal Alonso Work Phone: [facility] Work Phone: 03-24-2021 09:41-0400 Body surface area Derived from formula 2.45 m2 Hetal Hemal Alonso Work Phone: [facility] Work Phone: 03-24-2021 09:41-0400 Body temperature 97.7 [degF] Hetal Hemal Alonso Work Phone: [facility] Work Phone: 03-24-2021 09:41-0400 Body weight 146.51 kg Hetaledison Alonso Work Phone: [facility] Work Phone: 03-24-2021 09:41-0400 Diastolic blood pressure 86 mm[Hg] Hetal Alonso Work Phone: [facility] Work Phone: 03-24-2021 09:41-0400 Heart rate 64 /min Hetal Alonso Work Phone: [facility] Work Phone: 03-24-2021 09:41-0400 Systolic blood pressure 152 mm[Hg] Hetal Alonso Work Phone: [facility] Work Phone: Clinical Notes 04-04-2020 to 12-27-2023 Hetal Alonso [...] Hetal Alonso MD documented in this encounter [facility] Work Phone: 10-21-2023 Note PROCEDURE: XR [...] OLIVER INFANTE MD Signed Out: 10/21/23 14:17:29 [facility] 10-21-2023 History of Present illness Narrative [...] Hetal Alonso MD documented in this encounter [facility] Work Phone: 07-18-2023 Evaluation + Plan note Associated Problem(s): Morbid obesity with body mass index (BMI) of 50.0 to 59.9 in adult (CMS/HCC) Above normal BMI nutrition and physical activity reviewed [facility] Work Phone: 07-18-2023 Miscellaneous Notes Associated Problem(s): Morbid obesity with body mass index (BMI) of 50.0 to 59.9 in adult (CMS/HCC) Above normal BMI nutrition and physical activity reviewed Associated Problem(s): Avascular necrosis of right talus (CMS/HCC) Persistant pain Continue current managment documented in this encounter [facility] Work Phone: 07-18-2023 Evaluation + Plan note Associated Problem(s): Avascular necrosis of right talus (CMS/HCC) Persistant pain Continue current managment [facility] Work Phone: 06-28-2023 History of Present [...] is no history of angina, kidney disease, CAD/MT, CVA, heart failure, left ventricular hypertrophy, PVD [...] Hetal Alonso MD documented in this encounter [facility] Work Phone: 04-29-2023 Evaluation note Encounter [...] (ICD-10 - G89.29) Follow up after procedure [facility] Other 06-16-2023 NoteProcedure: MR Lumbar Spine without [...] By: QUENTIN CARNEY MD Signed Out: 04/19/23 16:05:36[facility]06-02-2023 Evaluation note* Encounter Date Diagnosis Assessment [...] negative findings were considered in medical decision-making. [facility] Other 05-31-2023 NotePT Outpatient Progress Note Entered [...] wedge to encourage calcaneus into more eversion. [place] okay to patient butwill have patient use [...] : 6 Numeric Pain Score : 6 Trinitytammirefugio PT, Abdoulaye - 04/03/2023 12:59 EDT Aquatic Therapy Aqua Ankle - grid Exercise 1 Exercise 2 Exercise 3 Exercise 4 Exercise : Warm-up walk Calf stretch Ankle Pumps, Ankle circles, Alphabet trace One leg stance Reps/Time : 5' 20x3 2x20 30x3 Comment : KE and KF alphabet x1 Cosme PT, Abdoulaye - 04/03/2023 12:59 EDT Daphnerick PT, Abdoulaye - 04/03/2023 12:59 EDT Daphnerick PT, Abdoulaye - 04/03/2023 12:59 EDT Cosme PT, Abdoulaye 04/03/2023 12:59 EDT Exercise 5 Exercise 6 Exercise 7 Exercise 8 Exercise : Calf Raises, Other: Toe raises Other: Standing Inversion and Eversion Other: Squats Step-up, Other: and Lateral step downs Reps/Time : x20 ea x15 ea x30 x20 ea Comment : bottom pool step; lateral 15x today Cosme PT, Abdoulaye 04/03/2023 12:59 EDT Daphnerick PT, Abdoulaye - 04/03/2023 12:59 EDT Daphnerick PT, Abdoulaye 04/03/2023 12:59 EDT Cosme PT, [...] ABDuction, hang with noodle Cosme PT, Abdoulaye - 04/03/2023 12:59 EDT Cosme PT, Abdoulaye 04/03/2023 12:59 EDT Daphnerick PT, Abdoulaye - 04/03/2023 12:59 EDT Cosme PT, Abduolaye 04/03/2023 12:59 EDT Exercise 13 Exercise : Cool down walk Reps/Time : 3' Comment : Abdoulaye Aguiar PT - 04/03/2023 12:59 EDT Education *Barriers [...] 0 Abdoulaye Aguiar PT - 04/03[facility]2023 12:[facility] NotePT Outpatient Progress Note Entered On: [...] wedge to encourage calcaneus into more eversion. [place] okay to patient butwill have patient use for awhile to ascertain tolerability. Attending Physician : Name: BRITTANY STEFAN KEVINJuanito Aguiar PT, Abdoulaye - 03/29/2023 9:02 EDT Pain Assessment Pain Location : Ankle Laterality : Right Self Report Pain : Numeric rating scale Numeric Pain Scale : 6 Numeric Pain Score : 6 Cosme PT, Abdoulaye - 03/29/2023 13:40 EDT Therapeutic Exercise [...] Cosme DAWN, Abdoulaye 03/29/2023 13:40 EDT Cosme PT, Abdoulaye 03/29/2023 13:40 EDT Cosme DAWN, Abdoulaye - 03/29/2023 13:40 EDT Exercise 5 Exercise [...] Cosme DAWN, Abdoulaye - 03/29/2023 13:40 EDT Csome PT, Abdoulaye 03/29/2023 13:40 EDT Cosme PT, Abdoulaye 03/29/2023 13:40 EDT Exercise 9 Exercise [...] : Cosme DAWN Abdoulaye 03/29/2023 13:40 EDT Daphnerefugio DAWN Abdoulaye 03/29/2023 13:40 EDT Cosme DAWN Abdoulaye 03/29/2023 13:40 EDT Daphnerefugio LÓPEZ Abdoulaye 03/29/2023 13:40 EDT Exercise 14 Exercise : Gait training without AD Equipment/Device : Repetition/Time : 25 min Resist or Assist : Not Performed : HEP Given : Comment : Cosme LÓPEZ Abdoulaye 03/29/2023 13:40 EDT Manual Therapy Manual Therapy Activity 1 Activity 2 Type/Technique : IASTM, Manual stretch, Myofascial/Soft tissue mobilization Region : Right ankle Equipment/Medium : Deep prep, Smart tools Deep prep Descriptor : 15' Abdoulaye Aguiar PT 03/29/2023 13:40 EDT Cosme DAWN Abdoulaye 03/29/2023 13:40 EDT Education *Barriers To Learning : None evident *Teaching Method : Explanation Patient Education - PT Outpatient : Home exercise program - progression/modification Cosme LÓPEZ Abdoulaye 03/29/2023 13:40 EDT Assessment PT Clinical Assessment Summary : Sebastián session well although mobs and pushing range quite uncomfortable. Will cont to work with patient on limited basis to maintain present range and improve upon mobility if possible; also, encourage cont's work on weightbearing and gait. Cosme LÓPEZ Abdoulaye 03/29/2023 13:40 EDT Plan Frequency : 2 times per week *Duration : 8 Weeks *Treatments : Balance training, Manual therapy, Therapeutic exercises, Patient education, Gait training *Plan for Next Visit : Cont as above to patient tolerance, ankle and achilles. Home Exercise Program/Other PT Treatment Provided : Initiated Treatment Plan/Goals Established with Patient/Caregiver : Yes Trinitydudley LÓPEZ Abdoulaye 03/29/2023 13:40 EDT Time Spent with [...] : 0 Cosme PTAbdoulaye - 03/29/2023 13:40 [facility] 03-29-2023 NotePT Outpatient Progress Note [...] wedge to encourage calcaneus into more eversion. [place] okay to patient butwill have patient use [...] Soft Tissue Mobility Time : 0 minutes [place] Soft Tissue Mobility Units : 0 units PT Total Timed Code Treatment Units : 0 units PT Total Timed Code Tx Minutes : 0 minutes 8 Min Rule Unit Check PT OP : 0 units PT Total Treatment Time Rehab : 0 minutes 8 Min Rule Unit Difference PT OP : 0 Meredith Menendez PTA 03/26/2023 8:59 [facility] NotePT Outpatient Progress Note Entered On: [...] wedge to encourage calcaneus into more eversion. [place] okay to patient butwill have patient use [...] Shon PALACIO, Meredith 03/12/2023 8:54 EDT Shon PALACIO, Meredith - [...] PALACIO, Meredith - 03/12/2023 8:54 EDT Exercise 9 Exercise 10 [...] - 03/12/2023 8:54 EDT Shon PALACIO, Meredith 03/12/2023 8:54 EDT Exercise 14 Exercise : Gait training without AD Equipment/Device : Repetition/Time : 25 min Resist or Assist : Not Performed : HEP Given : Comment : Meredith Menendez PTA - 03/12/2023 8:54 EDT Education *Barriers To Learning : None evident *Teaching Method : Demonstration, Explanation Patient Education - PT Outpatient : N/A Meredith Menendez PTA David 03/14/2023 10:24 EDT Assessment PT Response to [...] PT Therapeutic Exercise Time : 0 minutes [place] Therapeutic Exercise Units : 0 units PT Total Timed Code Treatment Units : 0 units PT Total Timed Code Tx Minutes : 0 minutes 8 Min Rule Unit Check PT OP : 0 units PT Total Treatment Time Rehab : 0 minutes 8 Min Rule Unit Difference PT OP : 0 Shon HAKEEM Meredith 03/14/2023 10:[facility] NotePT Outpatient Progress Note [...] wedge to encourage calcaneus into more eversion. [place] okay to patient butwill have patient use for awhile to ascertain tolerability. Attending Physician : Name: STEFAN SOTO Subjective : Pt continues to have nerve pain at anterior ankle but feels good today. Has been walking barefoot at home without AD, feeling good. Therapeutic Exercise : Yes Shon PALACIO, 03/05/2023 11:48 EDT Therapeutic Exercise Custom Therapeutic Exercise Exercise 1 Exercise 2 Exercise 3 Exercise 4 Exercise : Ankle ROM Right Towel Stretch t-band 4X Seated AROM (PF/DF)(Inv/Ev) Equipment/Device : Repetition/Time : x20 ea 20x3 KE and KF 15x2 x20 ea Resist or Assist : Red Not Performed : X HEP Given : Comment : Shon [place], Meredith - 03/05/2023 11:48 EDT Shon [place], 03/05/2023 11:48 EDT Shon [place], 03/05/2023 11:48 EDT Shon [place] 03/05/2023 11:48 EDT Exercise 5 Exercise 6 Exercise 7 Exercise 8 Exercise : Seated Baps Standing with relaxed foot Modified tandem stand Seated Dome Equipment/Device : Repetition/Time : 10 ea 1 minute 10x2 3x10 Resist or Assist : Not Performed : X X X HEP Given : Comment : x4 way and CW/CCW Shon [place], 03/05/2023 11:48 EDT Shon [place], Meredith - 03/05/2023 11:48 EDT Shon [place], Meredith - 03/05/2023 11:48 EDT Shon [place] Meredith 03/05/2023 11:48 EDT Exercise 9 Exercise [...] Shon PALACIO, Meredith 03/05/2023 11:48 EDT Shon [place], Meredith 03/05/2023 11:48 EDT Shon [place], Meredith - 03/05/2023 11:48 EDT Meredith Menendez PTA 03/05/2023 11:48 EDT Exercise 14 Exercise : [...] PT Therapeutic Exercise Time : 0 minutes [place] Therapeutic Exercise Units : 0 units PT Total Timed Code Treatment Units : 0 units PT Total Timed Code Tx Minutes : 0 minutes 8 Min Rule Unit Check PT OP : 0 units PT Total Treatment Time Rehab : 0 minutes 8 Min Rule Unit Difference PT OP : 0 Meredith Menendez PTA 03/05/2023 14:06 [facility]-2023 NotePT Outpatient Progress Note Entered On: [...] wedge to encourage calcaneus into more eversion. [place] okay to patient butwill have patient use [...] X HEP Given : Yes Comment : Didudley LÓPEZ Abdoulaye - 03/15/2023 9:00 EDT Cosme DAWN Abdoulaye - 03/15/2023 9:00 EDT Daphnerefugio LÓPEZ Abdoulaye - 03/15/2023 9:00 EDT Daphnerefugio LÓPEZ Abdoulaye - 03/15/2023 9:00 EDT Exercise 14 Exercise : Gait training without AD Equipment/Device : Repetition/Time : 25 min Resist or Assist : Not Performed : HEP Given : Comment : Cosme DAWN Abdoulaye - 03/15/2023 9:00 EDT Education *Barriers To Learning : None evident *Teaching Method : Explanation Patient Education - PT Outpatient : Home exercise program - progression/modification Cosme DAWN Abdoulaye - 03/15/2023 9:00 EDT Assessment PT Clinical Assessment Summary : Having a better day; patient reports she feels better after manualsessions in regards to comfort and mobility Cosme DAWN Abdoulaye - 03/15/2023 9:00 EDT Plan Frequency : 2 times per week *Duration : 8 Weeks *Treatments : Balance training, Manual therapy, Therapeutic exercises, Patient education, Gait training *Plan for Next Visit : Cont manual therapy, exercises, gait training. Home Exercise Program/Other PT Treatment Provided : Initiated Treatment Plan/Goals Established with Patient/Caregiver : Yes Cosme DAWN Abdoulaye - 03/15/2023 9:00 EDT Time Spent with [...] Rule Unit Difference PT OP : 0 Daphnerefugio LÓPEZ Abdoulaye - 03/15/2023 9:00 [facility]2023 NotePT Outpatient Progress Note Entered On: 03/13/2023 13:29 EDT Performed On: 03/13/2023 10:30 EDT by Favio Whittaker PT Review/Treatments Provided Total Visit Count : 52 Visit Count Reviewed? : Yes Shelter Goals Reviewed : Yes Diagnosis : Reason for Visit: M19.171=POST TRAUMATIC ARTHRITIS OF R ANKLE, SX 01/10/23 Precautions/Special Notes : 03/01/23 looked at patient's orthotic materials. Modified metatarsal cookie to use as lateral heel wedge to encourage calcaneus into more eversion. [place] okay to patient butwill have patient use for awhile to ascertain tolerability. Attending Physician : Name: STEFAN SOTO Subjective : good day per pt., using 1 walking stick Aquatics : Yes Panfilo PT, Favio 03/13/2023 13:19 EDT Shelter Goals PT Outpt Pt Goal - grid [...] pool step; lateral 15x today Panfilo PT, [facility] 03/13/2023 13:19 EDT Panfilo PT, [facility] 03/13/2023 13:19 EDT Panfilo PT, [facility] 03/13/2023 13:19 EDT Panfilo PT, [facility] 03/13/2023 13:19 EDT Exercise 9 Exercise 10 Exercise 11 Exercise 12 Exercise : [place], Step/Plant, March walk, Retro walk, Lateral walk Other: Flex, Abd, Extension ofhips Water cycle - deep Other: Gait training trying to improve toe off, delaying heel off slightly. Reps/Time : 6w x20 ea 5' 4w - 0 Comment : ABDuction, hang with noodle Panfilo PT, [facility] 03/13/2023 13:19 EDT Panfilo PT, [facility] 03/13/2023 13:19 EDT Panfilo PT, [facility] 03/13/2023 13:19 EDT Panfilo PT, [facility] 03/13/2023 13:19 EDT Exercise 13 Exercise : Cool down walk Reps/Time : 3' Comment : Panfilo PT, Favio 03/13/2023 13:19 EDT Education *Barriers To Learning : None evident *Teaching Method : Demonstration, Explanation Patient Education - PT Outpatient : Other: SL walk Panfilo PT, Favio 03/13/2023 13:19 EDT Assessment PT Response to Treatment : Tolerated well PT Clinical Assessment Summary : Pt. takes time to do exercises, walking with good form. Panfilo PT, [facility] 03/13/2023 13:19 EDT Plan Frequency : 2 times per week *Duration : 8 Weeks *Treatments : Balance training, Manual therapy, Therapeutic exercises, Patient education, Gait training *Plan for Next Visit : continue protocal Home Exercise Program/Other PT Treatment Provided : Initiated Treatment Plan/Goals Established with Patient/Caregiver : Yes Panfilo PT, [facility] 03/13/2023 13:19 EDT Time Spent with Patient [...] 0 Favio Whittaker PT - 03/13/2023 13:19 [facility]05[facility] NotePT Outpatient Progress Note Entered On: 03/08/2023 [...] wedge to encourage calcaneus into more eversion. [place] okay to patient butwill have patient use [...] ; Type: Allergy ; Updated By: Chelsey aPblo LPN; Reviewed Date: 04/12/2020 17:46 EDT Medication [...] Line: 8 mg = 1 tabs, ORAL, [id number], PRN: as needed for nausea/vomiting, 30 tabs, 0 Refill(s) ; Ordering Provider: YARELI FOREMAN DPM, RES; Catalog Code: ondansetron ; Order Dt/Tm: 04/14/2020 11:00:03 EDT acetaminophen-hydrocodone : acetaminophen-hydrocodone ; Status: Prescribed ; Ordered As Mnemonic: acetaminophen-HYDROcodone 325 mg-5 mg oral tablet ; Simple Display Line: 2 tabs, ORAL, [id number], PRN: Moderate to Severe Pain, 30 tabs, [...] CW/CCW Erwin Aguiar PT (more content not included)...[facility] 03-06-2023 NotePT Outpatient Progress Note Entered On: 03/06/2023 13:16 EDT Performed On: 03/06/2023 13:08 EDT by Dittrick PT, Abdoulaye Review/Treatments Provided Total Visit Count : 50 Visit Count Reviewed? 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 Modified metatarsal cookie to use as lateral heel wedge to encourage calcaneus into more eversion. [place] okay to patient butwill have patient use [...] Cosme PT, Abdoulaye - 03/06/2023 13:08 EDT Cosem PT, Abdoulaye - 03/06/2023 13:08 EDT Cosme [...] ea 3' 4w - 0 Comment : Abdoulaye Aguiar PT - 03/06/2023 [...] 0 Abdoulaye Aguiar PT - 03/06/2023 13:08 [facility] Outpatient Progress Note [...] wedge to encourage calcaneus into more eversion. [place] okay to patient butwill have patient use for awhile to ascertain tolerability. Attending Physician : Name: BRITTANY , STEFAN KEVIN Subjective : Patient reports she is doing [...] 0 Abdoulaye Aguiar PT - 03/01/2023 10:[facility] NotePT Outpatient Progress Note Entered On: [...] : Comment : Abdoulaye Aguiar PT - 02/27/2023 10:54 EDT [...] way and CW/CCW Abdoulaye Aguiar PT - 02/27/2023 10:54 EDT Abdoulaye Aguiar PT - 02/27/2023 10:54 EDT Erwin Aguiar PTe - 02/27/2023 10:54 EDT Erwin Aguiar PTe - 02/27/2023 10:54 EDT Exercise 9 Exercise 10 [...] : Abdoulaye Aguiar PT 02/27/2023 10:54 EDT TrinityAbdoulaye buckner PT - 02/27/2023 10:54 EDT Trinitydudley DAWN Abdoulaye 02/27/2023 10:54 EDT Abdoulaye Aguiar PT 02/27/2023 10:54 EDT Education *Barriers To Learning : None evident *Teaching Method : Demonstration, Explanation Patient Education - PT Outpatient : Home exercise program - progression/modification Abdoulaye Aguiar PT 02/27/2023 10:54 EDT Assessment PT Clinical Assessment [...] and give of midsole. Abdoulaye Aguiar PT 02/27/2023 10:54 EDT Plan Frequency : 2 times per week *Duration : 8 Weeks *Treatments : Balance training, Manual therapy, Therapeutic exercises, Patient education, Gait training *Plan for Next Visit : Cont per plan Home Exercise Program/Other PT Treatment Provided : Initiated Treatment Plan/Goals Established with Patient/Caregiver : Yes Abdoulaye Aguiar PT 02/27/2023 10:54 EDT Time Spent with Patient [...] PT OP : 0 Abdoulaye Aguiar PT 02/27/2023 10:54 [facility] 02-26-2023 NotePT Outpatient Progress Note [...] Mesha 02/26/2023 16:01 EDT Rucinski DPT, Mesha02/26/2023 16:13 EDT Exercise 4 Exercise 5 Exercise 6 Exercise 7 Exercise : One leg stance Calf Raises, Other: Toe raises Other: Standing Inversion and Eversion Other: Squats Reps/Time : 10x3 x20 ea x15 ea x20 Comment : Rucinski DPT, Mesha02/26/2023 16:01 EDT Rucinski DPT, Mesha 02/26/2023 16:01 EDT Rucinski DPT, Mesha02/26/2023 16:01 EDT Rucinski DPT, Mesha 02/26/2023 16:01 EDT Exercise 8 Exercise 9 [...] Reps/Time : 3' Comment : Jerrod KATZ, [facility] 02/26/2023 16:13 EDT Education *Barriers To Learning : None evident *Teaching Method : Demonstration, Explanation Patient Education - PT Outpatient : Other: exercise technique Jerrod KATZ, [facility] 02/26/2023 16:13 EDT Assessment PT Response to Treatment : Tolerated well PT Clinical Assessment Summary : Pt reports less soreness following this tx compared to first aquatic session. Notes benefit with water walking and focus on mechanics. Group charge due to pt overlap. Jerrod KATZ, [facility] 02/26/2023 16:13 EDT Plan Frequency : 2 times per week *Duration : 8 Weeks *Treatments : Balance training, Manual therapy, Therapeutic exercises, Patient education, Gait training *Plan for Next Visit : f/u on land; pt requesting print out of aquatic ex's Home Exercise Program/Other PT Treatment Provided : Initiated Treatment Plan/Goals Established with Patient/Caregiver : Yes Jerrod KATZ, [place] 02/26/2023 16:13 EDT Time Spent with Patient - Outpatient PT Time In : 16:00 EST Jerrod KATZ, [facility] 02/26/2023 16:01 EDT PT Time Out : 16:38 EST Jerrod KATZ, [place] 02/26/2023 16:13 EDT PT Aquatic Group Therapy Units : 1 units PT Aquatic Group Therapy Time : 15 minutes Jerrod KATZ, [facility] 02/26/2023 16:01 EDT PT Aquatic Units : 2 units PT Aquatic Time : 23 minutes PT Total Timed Code Treatment Units : 2 units PT Total Timed Code Tx Minutes : 23 minutes 8 Min Rule Unit Check PT OP : 2 units Jerrod KATZ, [facility] 02/26/2023 16:13 EDT PT Total Untimed Code Treatment Minutes : 15 minutes Jerrod KATZ, [place] 02/26/2023 16:01 EDT PT Total Treatment Time Rehab : 38 minutes Jerrod KATZ, [facility] 02/26/2023 16:13 EDT 8 Min Rule Unit Difference PT OP : 0 Jerrod KATZ, [facility] 02/[facility]2023 16:[facility] NotePT Outpatient Progress Note Entered On: 02/22/2023 [...] TrinityAbdoulaye buckner PT - 02/22/2023 11:27 EDT DaphneAbdoulaye huff PT - 02/22/2023 11:27 EDT Education *Barriers [...] Patient/Caregiver : Yes Abdoulaye Augiar PT - 02/22/2023 11:27 EDT Time Spent [...] 0 Abdoulaye Aguiar PT - 02/22/2023 11:27 [facility]-22-2023 NotePT Outpatient Progress Note Entered On: [...] gait training with LRD. Gait : Yes Shon PALACIO Meredith 02/21/2023 17:53 EDT Total Visit Count : 44 Visit Count Reviewed? : Yes Diagnosis : Reason for Visit: M19.171=POST TRAUMATIC ARTHRITIS OF R ANKLE, SX 01/10/23 Attending Physician : Name: STEFAN SOTO HAKEEM [facility] 02/21/2023 10:54 EDT Pain Assessment Pain Location : Ankle Laterality : Right Self Report Pain : Numeric rating scale Numeric Pain Scale : 5 = Moderate pain Numeric Pain Score : 5 Shon HAKEEM Meredith 02/21/2023 17:53 EDT Gait Analysis PMR Ambulation Comments : Pt progressed to ambulation with B SPC this session with emphasis on symmetrical stance and proper WS. Use of mirror and video for additional feedback helpfull. Pt attemptedgait in batista with use of 1/2 wall; progressively increased confidence. Shonmila PALACIO Meredith 02/21/2023 17:53 EDT Education *Barriers To Learning : None evident *Teaching Method : Demonstration, Explanation Patient Education - PT Outpatient : Body mechanics, Ergonomics, Introduction to aquatic rehab policies & procedures Shon HAKEEM Meredith 02/21/2023 17:53 EDT Assessment PT Response [...] with Patient/Caregiver : Yes Shon HAKEEM Meredith 02/21/2023 17:53 EDT Time Spent with Patient - Outpatient PT Time In : 00:00 EST PT Time Out : 00:00 EST PT Gait Training Time : 0 minutes [place] Gait Training Units : 0 units PT Total Timed Code Treatment Units : 0 units PT Total Timed Code Tx Minutes : 0 minutes 8 Min Rule Unit Check PT OP : 0 units PT Total Treatment Time Rehab : 0 minutes 8 Min Rule Unit Difference PT OP : 0 Meredith Menendez PTA 02/21/2023 17:53 [facility] 02-22-2023 NotePT Outpatient Progress Note Entered On: [...] New Menendez PTAa 02/18/2023 16:40 EDT Exercise 5 Exercise 6 [...] Patient Education - PT Outpatient : N/A New Menendez PTAmeka Hernandez 02/18/2023 18:02 EDT Assessment PT Response to Treatment : Tolerated well PT Clinical Assessment Summary : Added BAPS today with good effort; very challenging. Increased attention to symmetrical stance and WS. Pt exhibits improvement with placement and control. ShonMeredith zaragoza PTA 02/18/2023 18:02 EDT Plan Frequency : 2 times per week *Duration : 8 Weeks *Treatments : Balance training, Manual therapy, Therapeutic exercises, Patient education, Gait training *Plan for Next Visit : Begin gait training. Home Exercise Program/Other PT Treatment Provided : Initiated Treatment Plan/Goals Established with Patient/Caregiver : Yes New Menendez PTAmeka Hernandez 02/18/2023 18:02 EDT Time Spent with Patient - Outpatient PT Time In : 00:00 EST PT Time Out : 00:00 EST PT Therapeutic Exercise Time : 0 minutes [place] Therapeutic Exercise Units : 0 units PT Total Timed Code Treatment Units : 0 units PT Total Timed Code Tx Minutes : 0 minutes 8 Min Rule Unit Check PT OP : 0 units PT Total Treatment Time Rehab : 0 minutes 8 Min Rule Unit Difference PT OP : 0 Shonmila PALACIO Meredith - 02/18/2023 18:02 ED[facility]-22-2023 NotePT Outpatient Progress Note [...] Abdoulaye 02/15/2023 8:13 EDT Cosme DAWN Abdoulaye - 02/15/2023 8:13 EDT Cosme DAWN Abdoulaye - 02/15/2023 8:13 EDT Cosme PT Abdoulaye 02/15/2023 [...] Yes Cosme DAWN Abdoulaye 02/15/2023 8:13 EDT oCsme DAWN Abdoulaye 02/15/2023 8:13 EDT Education *Barriers To Learning : None evident *Teaching Method : Demonstration, Explanation Patient Education - PT Outpatient : Home exercise program - progression/modification Cosme DAWN Abdoulaye - 02/22/2023 11:25 EDT Assessment PT [...] Unit Difference PT OP : 0 Cosme PT, Abdoulaye - 02/22/2023 11:25 [facility] 02-20-2023 NotePROCEDURE: XR ANKLE RT MIN 3 [...] Electronically authenticated by: JERZY MURRIETA Date: 2023-02-20 10:43[facility]04-14-2023 NotePT Outpatient Progress Note Entered On: 02/11/2023 [...] EDT Meredith Menendez PTA 02/11/2023 17:49 EDT Shon PALACIO 02/11/2023 17:49 EDT Exercise 5 Exercise 6 Exercise 7 Exercise 8 Exercise : Seated Baps Standing with relaxed foot Modified tandem stand Seated Dome Repetition/Time : next 1 minute 10x2 3x10 Resist or Assist : Not Performed : HEP Given : Comment : Shon PALACIO Meredith - 02/11/2023 17:49 EDT Shon PALACIO Meredith - 02/11/2023 17:49 EDT Shon PALACIO 02/11/2023 17:49 EDT Shon PALACIO Meredith - 02/11/2023 17:49 EDT Exercise 9 Exercise : calcaneal distraction and mobs Repetition/Time : grade II Resist or Assist : Not Performed : X HEP Given : Yes Comment : Shon PALACIO Meredith - 02/11/2023 17:49 EDT Manual Therapy Manual Therapy [...] pain and edema following session. Shon PALACIO 02/11/2023 17:49 EDT Plan Frequency : 2 [...] PT Therapeutic Exercise Time : 0 minutes [place] Therapeutic Exercise Units : 0 units PT Total Timed Code Treatment Units : 0 units PT Total Timed Code Tx Minutes : 0 minutes 8 Min Rule Unit Check PT OP : 0 units PT Total Treatment Time Rehab : 0 minutes 8 Min Rule Unit Difference PT OP : 0 Shon Meredith PALACIO - 02/11/2023 17:49 [facility]-2023 NotePT Outpatient Progress Note Entered On: [...] Abdoulaye Aguiar PT - 02/08/2023 8:15 EDT Cosme DAWN Abdoulaye - 02/08/2023 8:15 EDT Cosme DAWN Abdoulaye - 02/08/2023 8:15 EDT Cosme DAWN Abdoulaye 02/08/2023 8:15 EDT Exercise 9 Exercise : calcaneal distraction and mobs Repetition/Time : grade II Resist or Assist : Cosme DAWN Abdoulaye 02/08/2023 8:15 EDT Manual Therapy Manual Therapy Activity 1 Type/Technique : Myofascial/Soft tissue mobilization Region : Other: plantar fascia right Equipment/Medium : Deep prep Trinitydudley LÓPEZAbdoulaye 02/08/2023 8:15 EDT Education *Barriers To Learning : None evident *Teaching Method : Demonstration, Explanation, Printed materials Patient Education - PT Outpatient : Home exercise program - progression/modification Abdoulaye Aguiar PT 02/08/2023 8:15 EDT Assessment PT Clinical Assessment Summary : Sebastián well, did well with new exercises. Still stands with greater supination on right; calcaneus not everting well. Trinitytammirefugio LÓPEZ Abdoulaye 02/08/2023 8:15 EDT Plan Frequency : 2 times per week *Duration : 8 Weeks *Treatments : Balance training, Manual therapy, Therapeutic exercises, Patient education, Gait training *Plan for Next Visit : Cont with exericise, gentle mobs, fascia massage Home Exercise Program/Other PT Treatment Provided : Initiated Treatment Plan/Goals Established with Patient/Caregiver : Yes TrinitytammiAbdoulaye huff PT 02/08/2023 8:15 EDT Time Spent with Patient [...] 0 Abdoulaye Aguiar PT - 02/08/2023 8:15 [facility] 02-06-2023 NotePT Outpatient Evaluation Entered On: 02/06/2023 [...] in brace and shoe, WBAT with crutches. MD wants close to FWB in two weeks. 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 : Yes Otorhinolaryngologist Goals Reviewed : Yes Pain Present : [...] Abdoulaye Aguiar PT - 12/28/2022 12:57 EST Otorhinolaryngologist Goals PT Outpt Pt Goal - grid Goal #1 PT Patient,Caregiver Goal : Walk normally without pain Status : Partially Met (Comment: Has episodes of significant pain due to impingement a Talocrural joint which limits her walking. [TrinitytammiAbdoulaye huff PT - 12/28/2022 12:57 EST] ) Date : 12/28/2022 EST Cosme Abdoulaye DAWN - 12/28/2022 12:57 EST General Function Goal [...] Out : 09:45 EST PT Re-Evaluation Units, 97795 : 1 units PT Re-Evaluation Time, 60045 : 45 minutes PT Total Untimed Code Treatment Minutes : 45 minutes PT Total Treatment Time Rehab : 45 minutes Cosme LÓPEZAbdoulaye - 12/28/2022 12:57 ESTSC[facility] 12-28-2022 NotePT Outpatient Progress Note Entered On: [...] Menendez PTA - 12/21/2022 8:08 EST Shon [place], 12/21/2022 8:08 EST Shon [place], 12/21/2022 8:08 EST Shon [place], 12/21/2022 8:08 EST Exercise 5 Exercise 6 Exercise 7 Exercise 8 Exercise : Small knee bends for dynamic achilles stretch slant board stretch T- band Posterior Tib; Tib Anterior Gait training Repetition/Time : 10 30 x 3* 15x2 Resist or Assist : red Not Performed : X X Comment : *Knee extended and then bent shorter stride to normalize patter. Shon [place], 12/21/2022 8:08 EST Shon [place], 12/21/2022 8:08 EST Shon [place], 12/21/2022 8:08 EST Shon [place], 12/21/2022 8:08 EST Exercise 9 Exercise 10 Exercise 11 Exercise 12 Exercise : Forward step downs Half dome PF/DF, INV/EV, CW/CCW Bilateral FWD stretch LAQ/ HS curls Repetition/Time : Resist or Assist : 2.5#/green Not Performed : X Comment : 2 then 4 tibial FWD translation Shon [place], 12/21/2022 8:08 EST Shon [place], 12/21/2022 8:08 EST Shon [place], 12/21/2022 8:08 EST Shon [place], 12/21/2022 8:08 EST Exercise 13 Exercise 14 Exercise 15 Exercise 16 Exercise : distraction and t/s and subtalar mobs Upright bike True [place] Strap Calf Stretch KE andKF Repetition/Time : 10' 30x3 Resist or Assist : grade III 3 115# Not Performed : X X X Comment : Shon [place], 12/21/2022 8:08 EST Shon [place], 12/21/2022 8:08 EST Shon [place], 12/21/2022 8:08 EST Shon [place], 12/21/2022 8:08 EST Exercise 17 Exercise 18 Exercise 20 Exercise 21 Exercise : Half dome PWB alphabet 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, 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; athletic tape to foot to relieve PF and to soleus WS with metronome Repetition/Time : done 10' Resist or Assist : Not Performed : X Comment : Meredith Menendez PTA 12/21/2022 8:08 EST Shon PALACIO Meredith 12/21/2022 8:08 EST Shon PALACIO Meredith 12/21/2022 8:08 EST Shon PALACIO Meredith 12/21/2022 8:08 EST Exercise 22 Exercise : Gait trianing with metronome Repetition/Time : 15' Resist or Assist : Not Performed : X Comment : Shon PALACOI Meredith 12/21/2022 8:08 EST Education *Barriers To Learning : None evident *Teaching Method : Demonstration, Explanation Patient Education - PT Outpatient : N/A Meredith Menendez PTA 12/21/2022 8:08 EST Assessment PT Response to Treatment : Tolerated well PT Clinical Assessment Summary : Reviewed HEP and POC with pt. Pt demonstrates 100% skill and comprehension with HEP. Shon HAKEEM Meredith 12/21/2022 8:08 EST Plan Frequency : 2 times per week *Duration : 6 Weeks *Treatments : Balance training, Therapeutic exercises, Pain Management, Posture/Body mechanics training, Gait training *Plan for Next Visit : Discuss plan for DC, resuming after surgery. Treatment Plan/Goals Established with Patient/Caregiver : Yes Meredith Menendez PTA 12/21/2022 8:08 EST Time Spent with Patient - Outpatient PT Time In : 00:00 EST PT Time Out : 00:00 EST PT Therapeutic Exercise Time : 0 minutes [place] Therapeutic Exercise Units : 0 units PT Total Timed Code Treatment Units : 0 units PT Total Timed Code Tx Minutes : 0 minutes 8 Min Rule Unit Check PT OP : 0 units PT Total Treatment Time Rehab : 0 minutes 8 Min Rule Unit Difference PT OP : 0 Shon HAKEEM Meredith 12/21/2022 8:08 [facility] 12-28-2022 NotePT Outpatient Progress Note Entered [...] increased edema. Therapeutic Exercise : Yes Shon [place], Meredith 12/07/2022 13:29 EST Therapeutic Exercise Custom Therapeutic Exercise Exercise 1 Exercise 2 Exercise 3 Exercise 4 Exercise : NuStep joint mobs Talocrural and subtalar Anterior glides 1st MTP Slow reversals and hold relax stretch into extension of 1st MTP Repetition/Time : 5 Grade III 5' x10 Resist or Assist : 5 Not Performed : X Comment : Shon [place], Meredith 12/07/2022 13:29 EST Shon [place], Meredith 12/07/2022 13:29 EST Shon [place], Meredith 12/07/2022 13:29 EST Shon [place], Meredith 12/07/2022 13:29 EST Exercise 5 Exercise 6 Exercise 7 Exercise 8 Exercise : Small knee bends for dynamic achilles stretch slant board stretch T- band Posterior Tib; Tib Anterior Gait training Repetition/Time : 10 30 x 3* 15x2 Resist or Assist : red Not Performed : X Comment : *Knee extended and then bent shorter stride to normalize patter. Shon [place], [facility] 12/07/2022 13:29 EST Shon [place], Meredith 12/07/2022 13:29 EST Shon [place], Meredith 12/07/2022 13:29 EST Shon [place], Meredith 12/07/2022 13:29 EST Exercise 9 Exercise 10 Exercise 11 Exercise 12 Exercise : Forward step downs Half dome PF/DF, INV/EV, CW/CCW Bilateral FWD stretch LAQ/ HS curls Repetition/Time : Resist or Assist : 2.5#/green Not Performed : X Comment : 2 then 4 tibial FWD translation Shon [place], [facility] 12/07/2022 13:29 EST Shon [place], Meredith 12/07/2022 13:29 EST Shon [place], [facility] 12/07/2022 13:29 EST Shon [place], [facility] 12/07/2022 13:29 EST Exercise 13 Exercise 14 Exercise 15 Exercise 16 Exercise : distraction and t/s and subtalar mobs Upright bike True [place] Strap Calf Stretch KE andKF Repetition/Time : 10' 30x3 Resist or Assist : grade III 3 115# Not Performed : X X X Comment : Shon PALACIO, [facility] 12/07/2022 13:29 EST Shon PALACIO, [facility] 12/07/2022 13:29 EST [place]on [place], [facility] 12/07/2022 13:29 EST Shon [place], [facility] 12/07/2022 13:29 EST Exercise 17 Exercise 18 Exercise 20 Exercise 21 Exercise : Half dome PWB alphabet 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, 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; athletic tape to foot to relieve PF and to soleus WS with metronome Repetition/Time : done 10' Resist or Assist : Not Performed : X Comment : Shon PALACIO, [facility] 12/07/2022 13:29 EST Shon PALACIO, [facility] 12/07/2022 13:29 EST Shon PALACIO, [facility] 12/07/2022 13:29 EST Shon PALACIO, [facility] 12/07/2022 13:29 EST Exercise 22 Exercise : Gait trianing with metronome Repetition/Time : 15' Resist or Assist : Not Performed : X Comment : Shon PALACIO, [facility] 12/07/2022 13:29 EST Education *Barriers To Learning : None evident *Teaching Method : Demonstration, Explanation Patient Education - PT Outpatient : N/A Shon PALACIO, [facility] 12/07/2022 13:29 EST Assessment PT Response to Treatment : Tolerated well PT Clinical Assessment Summary : Pt demonstrated improvement in normalizing gait with progressive trials this visit. Educated on avoiding overcorrection of foot placement at weight acceptace. 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; athletic tape to foot to relieve PF and to soleus WS with metronome Repetition/Time : done 10' Resist or Assist : Not Performed : X Comment : Cosme DAWN Abdoulaye - 12/12/2022 13:19 EST Cosme DAWN Abdoulaye - 12/12/2022 13:19 EST Cosme DAWN Abdoulaye - 12/12/2022 13:19 EST Cosme DAWN Abdoulaye - 12/12/2022 13:19 EST Exercise 22 Exercise : Gait trianing with metronome Repetition/Time : 15' Resist or Assist : Not Performed : X Comment : Abdoulaye Aguiar PT 12/12/2022 13:19 EST Manual Therapy Manual Therapy Activity 1 Activity 2 Activity 3 Type/Technique : Myofascial/Soft tissue mobilization IASTM, Myofascial/Soft tissue mobilization Other: Cupping Region : Other: achilles, gastroc and soleus Other: plantar fascia Other: R calf and ankle Equipment/Medium : Deep prep Descriptor : 15 n10 no Cosme DAWN Abdoulaye - 12/12/2022 13:19 EST Cosme DAWN Abdoulaye - 12/12/2022 13:19 EST Cosme DAWN Abdoulaye - 12/12/2022 13:19 EST Education *Barriers To Learning : None evident *Teaching Method : Explanation Patient Education - PT Outpatient : Home exercise program - progression/modification Cosme DAWN Abdoulaye - 12/12/2022 13:19 EST Assessment PT Clinical Assessment Summary : Worked a lot on calf and ankle to gain mobility, tay into DF. Still considerable resistance to post glides. Have noticed better pronation. Soleus still needs work. Also worked on Plantar fascia today, finishing with slant board stretch. Patient to see a new doctor here at [facility] for consult regarding cyst and her options. Cosme DAWN Abdoulaye 12/12/2022 13:19 EST Plan Frequency : 2 times per week *Duration : 6 Weeks *Treatments : Balance training, Therapeutic exercises, Pain Management, Posture/Body mechanics training, Gait training *Plan for Next Visit : Cont per plan, this therapist will be back end of the month (more content not included)...[facility]02-01-2023 NotePT Outpatient Progress Note Entered On: [...] stride to normalize patter. 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; athletic [...] Abdoulaye Aguiar PT - 12/05/2022 13:22 EST Manual Therapy Manual Therapy Activity 1 Activity 2 Activity 3 Type/Technique : Myofascial/Soft tissue mobilization IASTM, Myofascial/Soft tissue mobilization Other: Cupping Region : Other: achilles, gastroc and soleus Other: plantar fascia Other: R calf and ankle Equipment/Medium : Deep prep Descriptor : 10 no no Abdoulaye Aguiar PT - 12/05/2022 9:02 EST Abdoulaye Aguiar PT - 12/05/2022 13:22 EST Abdoulaye Aguiar PT - 12/05/2022 13:22 EST Modalities Modalities Activity 1 Activity 2 Modality : Iontophoresis Ice massage Body Region : superior-ant talus ditto Settings : 14 hour patch Abdoulaye Aguiar PT 12/05/2022 13:22 EST Abdoulaye Aguiar PT - [...] Weeks *Treatments : Balanc (more content not included)...[facility]02-01-2023 NotePT Outpatient Progress Note Entered On: [...] : Yes Manual Therapy : Yes Shon [place], 11/30/2022 16:41 EST Therapeutic Exercise Custom Therapeutic Exercise Exercise 1 Exercise 2 Exercise 3 Exercise 4 Exercise : NuStep joint mobs Talocrural and subtalar Anterior glides 1st MTP Slow reversals and hold relax stretch into extension of 1st MTP Repetition/Time : 5 Grade III 5' x10 Resist or Assist : 5 Not Performed : X Comment : [place]on [place], 11/30/2022 16:41 EST [place]on [place], 11/30/2022 16:41 EST [place]on [place], 11/30/2022 16:41 EST [place]on [place], 11/30/2022 16:41 EST Exercise 5 Exercise 6 Exercise 7 Exercise 8 Exercise : Small knee bends for dynamic achilles stretch slant board stretch Eccentric T-band Posterior Tib Gait training Repetition/Time : 10 30 x 3* 10x2 HEP Resist or Assist : red Not Performed : X X Comment : *Knee extended and then bent shorter stride to normalize patter. [place]on [place], 11/30/2022 16:41 EST [place]on [place], 11/30/2022 16:41 EST [place]on [place], 11/30/2022 16:41 EST [place]on [place], 11/30/2022 16:41 EST Exercise 9 Exercise 10 Exercise 11 Exercise 12 Exercise : Forward step downs Half dome PF/DF, INV/EV, CW/CCW Bilateral FWD stretch LAQ/ HS curls Repetition/Time : Resist or Assist : 2.5#/green Not Performed : X Comment : 2 then 4 tibial FWD translation Shon [place], Meredith - 11/30/2022 16:41 EST Shon [place], Meredith - 11/30/2022 16:41 EST [place]on [place], 11/30/2022 16:41 EST [place]on [place], 11/30/2022 16:41 EST Exercise 14 Exercise 15 Exercise 16 Exercise 17 Exercise : Upright bike True Ruth Strap Calf Stretch KE and KF Half dome PWB alphabet Repetition/Time : 30x3 Resist or Assist : 3 115# Not Performed : X X X Comment : Shon PALACIO, Meredith 11/30/2022 16:41 EST [place]on [place], Meredith 11/30/2022 16:41 EST Shon [place], Meredith 11/30/2022 16:41 EST [place]on [place], Meredith - 11/30/2022 16:41 EST Exercise 18 Exercise 20 Exercise 21 Exercise 22 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, 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; athletic tape to foot to relieve PF and to soleus WS with metronome Gait trianing with metronome Repetition/Time : done 10' 15' Resist or Assist : Not Performed : X X Comment : Shon PALACIO, Meredith - 11/30/2022 16:41 EST [place]on [place], Meredith 11/30/2022 16:41 EST Shon [place], Meredith 11/30/2022 16:41 EST Shon PALACIO, Meredith 11/30/2022 16:41 EST Manual Therapy Manual Therapy Activity 1 Activity 2 Activity 3 Type/Technique : Myofascial/Soft tissue mobilization IASTM, Myofascial/Soft tissue mobilization Other: Cupping Region : Other: achilles, gastroc and soleus Other: plantar fascia Other: R calf and ankle Equipment/Medium : Deep prep Descriptor : 10 Shon PALACIO, Meredith 11/30/2022 16:41 EST [place]on [place], Meredith 11/30/2022 16:41 EST Shon [place], Meredith 11/30/2022 16:41 EST Education *Barriers To [...] sync with metronome beats. Shon PALACIO Meredith - 11/30/2022 16:41 EST Plan Frequency : 2 [...] PT Therapeutic Exercise Time : 0 minutes [place] Therapeutic Exercise Units : 0 units PT Total Timed Code Treatment Units : 0 units PT Total Timed Code Tx Minutes : 0 minutes 8 Min Rule Unit Check PT OP : 0 units PT Total Treatment Time Rehab : 0 minutes 8 Min Rule Unit Difference PT OP : 0 Shon HAKEEMMeredith - 11/30/2022 16:41 [facility] 11-28-2022 NotePT Outpatient Progress Note Entered [...] 5 Not Performed : X Comment : Dittrick [...] Exercise 17 Exercise : Upright bike True Ruth Strap Calf Stretch KE and KF Half [...] Exercise 22 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, 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; athletic tape to foot to relieve PF and to soleus WS with metronome Gait trianing with metronome Repetition/Time : done 10' 15' Resist or Assist : Not Performed : X X Comment : Cosme DAWN Abdoulaye - 11/28/2022 8:57 EST Cosme PT, Abdoulaye - 11/28/2022 8:57 EST Cosme PT, Abdoulaye - 11/28/2022 8:57 EST Cosme PT, Abdoulaye - 11/28/2022 8:57 EST Manual Therapy Manual Therapy Activity 1 Activity 2 Activity 3 Type/Technique : Myofascial/Soft tissue mobilization IASTM, Myofascial/Soft tissue mobilization Other: Cupping Region : Other: achilles, gastroc and soleus Other: plantar fascia Other: R calf and ankle Equipment/Medium : Deep prep Descriptor : 15 10 Erwin Aguiar PTe 11/28/2022 8:57 EST Abdoulaye Aguiar PT - 11/28/2022 8:57 EST Cosme PT, Abdoulaye 11/28/2022 8:57 EST Modalities Modalities Activity 1 [...] Cosme DAWN Abdoulaye - 11/28/2022 8:57 EST Abdoulaye Aguiar PT 11/28/2022 8:57 EST Education *Barriers To Learning : None evident *Teaching Method : Explanation Patient Education - PT Outpatient : Anatomy, Body mechanics Cosme DAWN Abdoulaye - 11/28/2022 8:57 EST Assessment PT Clinical Assessment Summary : Sebastián well; patient had many questions regarding next step regardingbone cyst; wants to pursue 2nd opinion before having cyst worked on. Used kinesiotape to reduce stress on achilles and taping of foot for fascia. Daphnerefugio PT, Abdoulaye - 11/28/2022 8:57 EST Plan (more content not included)...[facility]01-25-2023 NotePT Outpatient Progress Note Entered On: [...] Meredith Menendez PTA - 11/27/2022 13:05 EST [place]on [place], Meredith - 11/27/2022 13:05 EST [place]on [place], 11/27/2022 13:05 EST Exercise 9 Exercise 10 Exercise 11 Exercise 12 Exercise : Forward step downs Half dome PF/DF, INV/EV, CW/CCW Bilateral FWD stretch LAQ/ HS curls Repetition/Time : Resist or Assist : 2.5#/green Not Performed : X Comment : 2 then 4 tibial FWD translation [place]on [place], Meredith - 11/27/2022 13:05 EST [place]on [place], Meredith - 11/27/2022 13:05 EST Shon [place], Meredith - 11/27/2022 13:05 EST [place]on [place], 11/27/2022 13:05 EST Exercise 14 Exercise 15 Exercise 16 Exercise 17 Exercise : Upright bike True Ruth Strap Calf Stretch KE and KF Half dome PWB alphabet Repetition/Time : 30x3 Resist or Assist : 3 115# Not Performed : X X X Comment : Shon [place], Meredith - 11/27/2022 13:05 EST Shon [place], Meredith - 11/27/2022 13:05 EST Shon [place], Meredith - 11/27/2022 13:05 EST [place]on [place], 11/27/2022 13:05 EST Exercise 18 Exercise 20 Exercise 21 Exercise 22 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, 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; athletic tape to foot to relieve PF and to soleus WS with metronome Gait trianing with metronome Repetition/Time : done 10' 15' Resist or Assist : Not Performed : Comment : Shon [place], Meredith - 11/27/2022 13:05 EST Shon [place], Meredith 11/27/2022 13:05 EST Shon [place], Meredith - 11/27/2022 13:05 EST [place]on [place], 11/27/2022 13:05 EST Manual Therapy Manual Therapy Activity 1 Activity 2 Activity 3 Type/Technique : Myofascial/Soft tissue mobilization IASTM, Myofascial/Soft tissue mobilization Other: Cupping Region : Other: achilles, gastroc and soleus Other: plantar fascia Other: R calf and ankle Equipment/Medium : Deep prep Descriptor : 15 Shon [place], Meredith 11/27/2022 13:05 EST Meredith Menendez PTA 11/27/2022 13:05 EST Shon PALACIO Meredith 11/27/2022 13:05 EST Education *Barriers To Learning : None evident *Teaching Method : Demonstration, Explanation Patient Education - PT Outpatient : N/A Meredith Menendez PTA 11/27/2022 13:05 EST Assessment PT Response to [...] with Patient/Caregiver : Yes Shon HAKEEM Meredith 11/27/2022 13:05 EST Time Spent with Patient - Outpatient PT Time In : 00:00 EST PT Time Out : 00:00 EST PT Therapeutic Exercise Time : 0 minutes [place] Therapeutic Exercise Units : 0 units PT Total Timed Code Treatment Units : 0 units PT Total Timed Code Tx Minutes : 0 minutes 8 Min Rule Unit Check PT OP : 0 units PT Total Treatment Time Rehab : 0 minutes 8 Min Rule Unit Difference PT OP : 0 Shon PALACIO Meredith [facility] Entered On: [...] 2 KF 3 Attending Physician : Name: ISAACSID FRANCIA Anderson [place], [facility] 10/19/2022 17:06 EST Therapeutic Exercise Custom Therapeutic Exercise Exercise 1 Exercise 2 Exercise 3 Exercise 4 Exercise : NuStep joint mobs Talocrural and subtalar Anterior glides 1st MTP Slow reversals and hold relax stretch into extension of 1st MTP Repetition/Time : Grade III 5' x10 Resist or Assist : Not Performed : X Comment : not performed 09/21/22 [place]on [place], [facility] - 10/22/2022 18:43 EST [place]on [place], [facility] 10/22/2022 18:43 EST [place]on [place], [facility] 10/22/2022 18:43 EST [place]on [place], [facility] 10/22/2022 18:43 EST Exercise 5 Exercise 6 Exercise 7 Exercise 8 Exercise : Small knee bends for dynamic achilles stretch slant board stretch Eccentric T-band Posterior Tib Gait training Repetition/Time : 10 30 x 3* 10x2 HEP Resist or Assist : red Not Performed : Comment : *Knee extended and then bent shorter stride to normalize patter. [place]on [place], [facility] - 10/22/2022 18:43 EST [place]on [place], [facility] 10/22/2022 18:43 EST [place]on [place], [facility] 10/22/2022 18:43 EST [place]on [place], [facility] 10/22/2022 18:43 EST Exercise 9 Exercise 10 Exercise 11 Exercise 12 Exercise : Forward step downs Half dome PF/DF, INV/EV, CW/CCW Bilateral FWD stretch LAQ/ HS curls Repetition/Time : Resist or Assist : 2.5#/green Not Performed : Comment : 2 then 4 tibial FWD translation [place]on [place], [facility] 10/22/2022 18:43 EST [place]on [place], [facility] 10/22/2022 18:43 EST Hson [place], [facility] 10/22/2022 18:43 EST [place]on [place], [facility] 10/22/2022 18:43 EST Exercise 14 Exercise 15 Exercise 16 Exercise 17 Exercise : Upright bike True Ruth Strap Calf Stretch KE and KF Half dome PWB alphabet Repetition/Time : 30x3 Resist or Assist : 3 115# Not Performed : Comment : [place]on [place], [facility] 10/22/2022 18:43 EST Shon PALACIO, [facility] 10/22/2022 18:43 EST Shon PALACIO, [facility] 10/22/2022 18:43 EST Shon PALACIO, [facility] 10/22/2022 18:43 EST Exercise 18 Exercise 20 Exercise 22 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 Repetition/Time : 15' Resist or Assist : Not Performed : Comment : Shon PALACIO, [facility] 10/22/2022 18:43 EST Shon PALACIO, [facility] 10/22/2022 18:43 EST Shon PALACIO, [facility] 10/22/2022 18:43 EST Manual Therapy Manual Therapy Activity 1 Type/Technique : Myofascial/Soft tissue mobilization Region : Other: achilles, gastroc and soleus Equipment/Medium : Deep prep Descriptor : 15 Shon PALACIO [facility] 10/22/2022 18:43 EST Education *Barriers To Learning : None evident *Teaching Method : Demonstration, Explanation Patient Education - PT Outpatient : N/A Shon PALACIO [facility] 10/22/2022 18:43 EST Assessment PT Response to Treatment : Tolerated well PT Clinical Assessment Summary : Unseccessful with chosing a shoe for improved gait; bases were alltoo thick, causing supination. Pt advised to purchase minimal barefoot shoes. Shon PALACIO [facility] 10/22/2022 18:43 EST Plan Frequency : 2 times per week *Duration : 6 Weeks *Treatments : Balance training, Therapeutic exercises, Pain Management, Posture/Body mechanics training, Gait training *Plan for Next Visit : assess shoes after purchase. Treatment Plan/Goals Established with Patient/Caregiver : Yes Shon PALACIO [facility] 10/22/2022 18:43 EST Time Spent with Patient - Outpatient PT Time In : 00:00 EST PT Time Out : 00:00 EST PT Therapeutic Exercise Time : 0 minutes [place] Therapeutic Exercise Units : 0 units PT Total Timed Code Treatment Units : 0 units PT Total Timed Code Tx Minutes : 0 minutes 8 Min Rule Unit Check PT OP : 0 units PT Total Treatment Time Rehab : 0 minutes 8 Min Rule Unit Difference PT OP : 0 Shon HAKEEMNewa - 10/22/2022 18:43 [facility] 11-16-2022 NotePT Outpatient Progress Note Entered [...] Meredith Menendez PTA - 10/22/2022 11:06 EST New Menendez PTAa - 10/22/2022 11:06 EST Meredith Menendez PTA [...] Menendez PTA - 10/22/2022 11:06 EST [place], [facility] 10/22/2022 11:06 EST [place], [facility] 10/22/2022 11:06 EST Exercise 9 Exercise 10 Exercise 11 Exercise 12 Exercise : Forward step downs Half dome PF/DF, INV/EV, CW/CCW Bilateral FWD stretch LAQ/ HS curls Repetition/Time : Resist or Assist : 2.5#/green Not Performed : Comment : 2 then 4 tibial FWD translation [place]on [place], [facility] 10/22/2022 11:06 EST [place]on [place], [facility] 10/22/2022 11:06 EST [place]on [place], [facility] 10/22/2022 11:06 EST [place]on [place], [facility] 10/22/2022 11:06 EST Exercise 14 Exercise 15 Exercise 16 Exercise 17 Exercise : Upright bike True [place] Strap Calf Stretch KE and KF Half dome PWB alphabet Repetition/Time : 30x3 Resist or Assist : 3 115# Not Performed : Comment : [place]on [place], [facility] 10/22/2022 11:06 EST [place]on [place], [facility] 10/22/2022 11:06 EST [place]on [place], [facility] 10/22/2022 11:06 EST [place], [facility] 10/22/2022 11:06 EST Exercise 18 Exercise 20 Exercise 22 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, 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 11[facility]06 EST Modalities Modalities Activity 1 Activity 2 Activity 3 Modality : Iontophoresis Ultrasound Hot packs Body Region : Post Tib under MMall Post Tib L soleus and ankle Settings : 14 hr patch 1.5 w/cm, 50% Minutes : 10 minutes Shon PALACIO Meredith 10/22/2022 11:06 EST Shon PALACIO Meredith 10/22/2022 11:06 EST Shon PALACIO Emredith 10/22/2022 11:06 EST Education *Barriers To Learning : None evident *Teaching Method : Demonstration, Explanation Patient Education - PT Outpatient : N/A Shon PALCAIO Meredith 10/22/2022 11:06 EST Assessment PT Response to [...] PT Therapeutic Exercise Time : 0 minutes [place] Therapeutic Exercise Units : 0 units PT Total Timed Code Treatment Units : 0 units PT Total Timed Code Tx Minutes : 0 minutes 8 Min Rule Unit Check PT OP : 0 units PT Total Treatment Time Rehab : 0 minutes 8 Min Rule Unit Diff (more content not included)...[facility]01-13-2023 NotePT Outpatient Progress Note Entered On: [...] Comment : Shon PALACIO, Meredith - 2022 10:16 EST [place]on [place], Meredith 2022 10:16 EST [place]on [place], Meredith 2022 10:16 EST [place]on [place], 2022 10:16 EST Exercise 5 Exercise 6 Exercise 7 Exercise 8 Exercise : Small knee bends for dynamic achilles stretch slant board stretch Eccentric T-band Posterior Tib Gait training Repetition/Time : 10 30 x 3* 10x2 HEP Resist or Assist : red Not Performed : X X Comment : *Knee extended and then bent shorter stride to normalize patter. [place]on [place], Meredith - 2022 10:16 EST Shon [place], Meredith 2022 10:16 EST [place]on [place], Meredith - 2022 10:16 EST [place]on [place], 2022 10:16 EST Exercise 9 Exercise 10 Exercise 11 Exercise 12 Exercise : Forward step downs Half dome PF/DF, INV/EV, CW/CCW Bilateral FWD stretch LAQ/ HS curls Repetition/Time : Resist or Assist : 2.5#/green Not Performed : X Comment : 2 then 4 tibial FWD translation Shon [place], Meredith 2022 10:16 EST Shon [place], Meredith 2022 10:16 EST Shon [place], Meredith - 2022 10:16 EST Shon [place], Meredith - 2022 10:16 EST Exercise 14 Exercise 15 Exercise 16 Exercise 17 Exercise : Upright bike True [place] Strap Calf Stretch KE and KF Half dome PWB alphabet Repetition/Time : 30x3 Resist or Assist : 3 115# Not Performed : X X Comment : Shon PALACIO Meredith 2022 10:16 EST Shon PALACIO, Meredith 2022 10:16 EST Shon PALACIO Meredith 2022 10:16 EST Shon PALACIO Meredith 2022 10:16 EST Exercise 18 Exercise 20 Exercise 21 Exercise 22 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, 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; athletic tape to foot to relieve PF and to soleus WS with metronome Gait trianing with metronome Repetition/Time : done 10' 15' Resist or Assist : Not Performed : Comment : Shon PALACIO Meredith 2022 10:16 EST Shon PALACIO Meredith 2022 10:16 EST Shon PALACIO Meredith 2022 10:16 EST Shon PALACIO Meredith 2022 10:16 EST Education *Barriers To Learning : None evident *Teaching Method : Demonstration, Explanation Patient Education - PT Outpatient : Home exercise program - progression/modification Shon PALACIO Meredith 2022 10:16 EST Assessment PT Response to Treatment : Tolerated well PT Clinical Assessment Summary : Educated pt on improving gait symmetry with use of metronome nelson. Standing WS with emphasis on weight acceptance on R with hip shift to improved alignment and retrainproprioception. Shon PALACIO Meredith 2022 10:16 EST Plan Frequency : 2 times per week *Duration : 6 Weeks *Treatments : Balance training, Therapeutic exercises, Pain Management, Posture/Body mechanics training, Gait training *Plan for Next Visit : continue gait work Treatment Plan/Goals Established with Patient/Caregiver : Yes Shon PALACIO Meredith 2022 10:16 EST Time Spent with Patient - Outpatient PT Time In : 00:00 EST PT Time Out : 00:00 EST PT Therapeutic Exercise Time : 0 minutes [place] Therapeutic Exercise Units : 0 units PT Total Timed Code Treatment Units : 0 units PT Total Timed Code Tx Minutes : 0 minutes 8 Min Rule Unit Check PT OP : 0 units PT Total Treatment Time Rehab : 0 minutes 8 Min Rule Unit Difference PT OP : 0 Shon PALACIO Meredith 2022 10:16 [facility] 11-16-2022 NotePT Outpatient Progress Note Entered [...] tibial FWD translation Dittrick PT, Abdoulaye - 11/16/2022 9:01 EST [...] Performed : X X X Comment : Trinityttrick PT, Abdoulaye - 11/16/2022 9:01 EST Dittrick PT, Abdoulaye - 11/16/2022 9:01 EST Dittrick PT, Abdoulaye - 11/16/2022 9:01 EST Dittrick PT, Abdoulaye - 11/16/2022 9:01 EST Exercise 18 Exercise 20 Exercise 21 Exercise 22 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 Cosme DAWN Abdoulaye 11/16/2022 9:01 EST Plan Frequency : 2 [...] 09:47 EST PT Ther (more content not included)...[facility]01-13-2023 NotePT Outpatient Progress Note Entered On: [...] Attending Physician : Name: FRANCIA COLLAZO [place], 11/09/2022 9:50 EST Subjective : Pt was very sore and fatigued after last visit but feels it was a significant progression towards normalizing gait. Has been working on symmetrical stepping but pain is limiting. has returned to use of cane, but is maintaining work on WS and improved pattern. [place]on [place], 11/09/2022 17:23 EST Therapeutic Exercise : Yes [place]on [place], 11/09/2022 9:50 EST Therapeutic Exercise Custom Therapeutic Exercise Exercise 1 Exercise 2 Exercise 3 Exercise 4 Exercise : NuStep joint mobs Talocrural and subtalar Anterior glides 1st MTP Slow reversals and hold relax stretch into extension of 1st MTP Repetition/Time : 5 Grade III 5' x10 Resist or Assist : 5 Not Performed : X X Comment : Shon [place], 11/09/2022 9:50 EST [place]on [place], 11/09/2022 9:50 EST [place]on [place], 11/09/2022 9:50 EST [place]on [place], 11/09/2022 9:50 EST Exercise 5 Exercise 6 Exercise 7 Exercise 8 Exercise : Small knee bends for dynamic achilles stretch slant board stretch Eccentric T-band Posterior Tib Gait training Repetition/Time : 10 30 x 3* 10x2 HEP Resist or Assist : red Not Performed : X X Comment : *Knee extended and then bent shorter stride to normalize patter. [place]on [place], 11/09/2022 9:50 EST Shon [place], Meredith 11/09/2022 9:50 EST [place]on [place], Meredith - 11/09/2022 9:50 EST [place]on [place], 11/09/2022 9:50 EST Exercise 9 Exercise 10 Exercise 11 Exercise 12 Exercise : Forward step downs Half dome PF/DF, INV/EV, CW/CCW Bilateral FWD stretch LAQ/ HS curls Repetition/Time : Resist or Assist : 2.5#/green Not Performed : X Comment : 2 then 4 tibial FWD translation [place]on [place], 11/09/2022 9:50 EST [place]on [place], 11/09/2022 9:50 EST [place]on [place], 11/09/2022 9:50 EST [place]on [place], 11/09/2022 9:50 EST Exercise 14 Exercise 15 Exercise 16 Exercise 17 Exercise : Upright bike True Ruth Strap Calf Stretch KE and KF Half dome PWB alphabet Repetition/Time : 30x3 Resist or Assist : 3 115# Not Performed : X X Comment : Shon [place], Meredith - 11/09/2022 9:50 EST [place]on [place], 11/09/2022 9:50 EST [place]on [place], 11/09/2022 9:50 EST [place]on [place], 11/09/2022 9:50 EST Exercise 18 Exercise 20 Exercise 21 Exercise 22 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, 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; athletic tape to foot to relieve PF and to soleus WS with metronome Gait trianing with metronome Repetition/Time : done 10' 15' Resist or Assist : Not Performed : Comment : Shon [place], Meredith - 11/09/2022 9:50 EST [place], 11/09/2022 9:50 EST [place], 11/09/2022 9:50 EST [place]on [place], 11/09/2022 9:50 EST Manual Therapy Manual Therapy Activity 1 Activity 2 Activity 3 Type/Technique : Myofascial/Soft tissue mobilization IASTM, Myofascial/Soft tissue mobilization Other: Cupping Region : Other: achilles, gastroc and soleus Other: plantar fascia Other: R calf and ankle Equipment/Medium : Deep prep Descriptor : 15 5' static [place]on [place], Meredith - 11/09/2022 17:23 EST [place], 11/09/2022 17:23 EST [place], 11/09/2022 17:23 EST Modalities Modalities Activity 1 Modality : Iontophoresis Body Region : R Plantar fascia [place]on [place], 11/09/2022 17:23 EST Education *Barriers To Learning : None evident *Teaching Method : Demonstration, Explanation Patient Education - PT Outpatient : N/A Meredith Menendez PTA - 11/09/2022 17:23 EST Assessment PT [...] 00:00 EST PT Time (more content not included)...[facility]01-11-2023 NotePROCEDURE: XR FOOT RT MIN 3 [...] Electronically authenticated by: JERZY MURRIETA Date: 2022-11-14 13:42[facility]01-11-2023 NotePROCEDURE: XR FOOT RT MIN 3 [...] Electronically authenticated by: JERZY MURRIETA Date: 2022-11-14 13:42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 Cosme LÓPEZAbdoulaye - 11/02/2022 14:13 EST Plan Frequency : 2 times per week *Duration : 6 Weeks *Treatments : Balance training, Therapeutic exercises, Pain Management, Posture/Body mechanics training, Gait training *Plan for Next Visit : Cont as above. Treatment Plan/Goals Established with Patient/Caregiver : Yes Cosme LÓPEZAbdoulaye - 11/02/2022 14:13 EST Time Spent with Patient - Outpatient PT Time In : 09:00 EST PT T (more content not included)...[facility]12-30-2022 NotePT Outpatient Progress Note Entered On: [...] Manual Therapy : Yes Gait : Yes Shonmila PALACIO Meredith 10/26/2022 9:49 EST Manual Therapy Manual Therapy Activity 1 Type/Technique : Myofascial/Soft tissue mobilization Region : Other: achilles, gastroc and soleus Equipment/Medium : Deep prep Descriptor : 15 Shon PALACIO Meredith 10/26/2022 9:49 EST Gait Analysis PMR Ambulation Comments : Assessment of gait with various Minimal Barefoot shoes for proper mechanics and stability. Pt demonstrates improved alignment and decreased supination with WBing. Pt educated on discontinued use of insert to improve contact. Shon PALACIO Meredith 10/26/2022 9:49 EST Education *Barriers To Learning : None evident *Teaching Method : Demonstration Patient Education - PT Outpatient : N/A Shon PALACIO [facility] 10/26/2022 9:49 EST Assessment PT Response to [...] Soft Tissue Mobility Time : 0 minutes PLOWING GARDENS Soft Tissue Mobility Units : 0 units PT Total Timed Code Treatment Units : 0 units PT Total Timed Code Tx Minutes : 0 minutes 8 Min Rule Unit Check PT OP : 0 units PT Total Treatment Time Rehab : 0 minutes 8 Min Rule Unit Difference PT OP : 0 Meredith Menendez PTA - 10/26/2022 9:49 [facility] 09-06-2022 History of Present illness NarrativePatient [...] states sheusually has an infection after completing antibiotic.[facility] Work Phone: 1(411) 923-754710-30-2022 History of Present illness NarrativePatient is a [...] states sheusually has an infection after completing antibiotic.[facility] Work Phone: 1(924) 712-353209-21-2022 NotePROCEDURE: XR ANKLE RT MIN 3 VIEWS [...] Electronically authenticated by: JERZY MURRIETA Date: 2022-07-25 17:41[facility]06-23-2022 NotePROCEDURE: XR ANKLE RT MIN 3 VIEWS [...] Electronically authenticated by: JERZY MURRIETA Date: 2022-04-26 09:59[facility]02-14-2022 History of Present illness Narrative* Patient is [...] once a week for right ankle pain. -[facility] Work Phone: 1(380) 696-477601-01-2022 History of Present illness Narrative* 41y female [...] have any effect on her flank pain. [facility] [id number] Work Phone: 1(576) 432-776401-01-2022 History of Present illness Narrative* 41y female [...] have any effect on her flank pain. -[facility] Work Phone: 1(366) 885-443506-01-2020 History general Narrative - Reported* Type Description Date Surgical History dislocated talus-[place] 04/05 020 Surgical History total talus implant-Dr Vance 12/2020 Surgical History plantar fasciotomy 04/2021 Surgical History ankle arthroplasty, tenotomy, p lantar fascia 01/2023 Hospitalization History see above [employer] Other Evaluation noteNo InformationNortBrooke [facility] [employer] Other Evaluation note* Diagnosis Avascular necrosis of right talus (CMS/HCC)- Primary Benign essential hypertension Essential hypertension, benign Morbid obesity with body mass index (BMI) of 50.0 to 59.9 in adult ([facility]/HCC) documented in this encounter [facility] Work Phone: Evaluation note* Diagnosis Bronchitis- Primary Bronchitis, not specified as acute or chronic documented in this encounter [facility] Work Phone: Evaluation note* Diagnosis Adjustment disorder with mixed anxiety and depressed mood- Primary Weakness of both lower extremities Bilateral hip pain Pain in joint, pelvic region and thigh documented in this encounter [facility] Work Phone: History of Present illness [...] has been tear[facility] and [facility]: History of Present illness Narrative* [...] be going on vacation tomorrow to [place]. [facility] Work Phone: History of Present illness [...] be going on vacation tomorrow to [place]. [facility] Work Phone: History of Present illness [...] * Patient would like a referral to ob-gynecology teacher. * Patient reports she has lost weight 55 lbs since March with [employer]. [facility] Work Phone: History of Present illness [...] * Patient would like a referral to ob-gynecology teacher. * Patient reports she has lost weight 55 lbs since March with [employer]. [facility] Work Phone: History of Present illness Narrative* [...] * Patient would like a referral to ob-gynecology teacher. * Patient reports she has lost weight 55 lbs since March with [employer]. -[facility] Work Phone: History of [...] both legs. Applying heat helps a little. [facility] Work Phone: History of Present illness [...] both legs. Applying heat helps a little. [facility] Work Phone: Reason for referral (narrative)* Consultation (Routine) - Pending Review Specialty Diagnoses / Procedures Referred By Aaron gilliam Referred To Contact Physical Therapy Diagnoses B[place] [address] [place] [address] Referral ID Status Reason Start Date Expiration Date Visits Requested Visits Authorized [id number] Pending Review Specialty Services Required 12/27/2023 12/26/2024 1 1 [facility] Work Phone: Summary Purpose Family History [...] XR chest [place] [address] [place] [address] Referral ID Status Reason Start Date Expiration Date Visits Requested Visits Authorized [id number] Authorized Perform Procedure 3 10/20/2024 1 1 Additional Source Comments INFORMATION SOURCE (unrecogn ized section and content) DATE CREATED AUTHOR 10/11/2020 [employer] DATE CREATED AUTHOR AUTHOR'S ORGANIZ ATION 11/19/2021 [facility] DATE CREATED AUTHOR AUTHOR'S ORGANIZ ATION 01/25/2022 [facility] DATE CREATED AUTHOR AUTHOR'S ORGANIZ ATION 09/12/2022 [facility] DATE CREATED AUTHOR AUTHOR'S ORGANIZ ATION 09/16/2022 [employer] DATE CREATED AUTHOR AUTHOR'S ORGANIZ ATION 03/09/2023 [facility] DATE CREATED AUTHOR AUTHOR'S ORGANIZ ATION 07/19/2023 [facility] DATE CREATED AUTHOR AUTHOR'S ORGANIZ ATION 10/26/2023 [facility] DATE CREATED AUTHOR AUTHOR'S ORGANIZ ATION 01/04/2024 [facility] Ambulatory REASON FOR VISIT (unrecogniz ed [...] Care Teams (unrecognized sec tion and content) Mechanic/Welder Relationship Specialty [place] [address] [address] [facility] [address] [place] [address] PCP - General 06/01/13 [place] [address] [address] [facility] [address] [place] [address] PCP - MMO ACO PCP 01/02/23 Mechanic/Welder Relationship Specialty [place] [address] [address] PCP - General 06/01/13 [place] [address] [address] PCP - MMO ACO PCP 01/02/23 Mechanic/Welder Relationship Specialty [place] [address] [address] PCP - General 06/01/13 [place] [address] [address] PCP - MMO ACO PCP 11/04/23 FOR [...] BE BASED ON THE PRIMARY CLINICAL RECORDS. [facility] provides no warranty or guarantee of the accuracy or completeness of information in this document.
== END 2024-04-28 08:43 | disposition home or self-care (01) ==
LOC: CT 08:42
PROVIDERS: Visit Provider Podiatrist Foot & Ankle Surgery
DX: M19.071 Primary osteoarthritis, right ankle and foot (principal); M24.671 Ankylosis, right ankle
CPT/HCPCS: 73700

== ENCOUNTER 2024-06-24 12:47 | Outpatient (OUT) | payer BC, SELFPAY ==
--- NOTE | 2024-06-24 | XR_ITS ---
The [address] [address] Patient Name: SERA MAHONEY MRN: [id number] date: 1980 Sex: F Assigned Patient Location: Current Patient Location: Accession/Order Number: [id number] Exam Date: 06/24/2024 12:51 Report Date: 06/26/2024 05:02 At the request of: FRANCIA COLLAZO Procedure: XR ankle RT min 3V PROCEDURE: XR foot RT min 3V, XR ankle RT min 3V HISTORY: RIGHT FOOT PAIN , right ankle pain COMPARISON: XR ankle right 04/01/2024, XR foot right 03/11/2024 FINDINGS: BONES:Mechanical fusion of the ankle joint and hindfoot via intramedullary bear and locking screws. Prosthetic spacer replacement of the talus. Resection of distal fibula. Mild degenerative changes the first metatarsophalangeal joint and suspected prior bunionectomy. Prominent degenerative enthesopathic spurring of the calcaneus. SOFT TISSUES:No visible soft tissue swelling. EFFUSION:None visible. OTHER: Negative. XR/XR ankle RT min 3V IMPRESSION: 1. Stable surgical changes without evidence of hardware failure or change in alignment. 2. Stable mild/moderate degenerative changes. Electronically authenticated by: JERZY MURRIETA Date: 06/26/2024 05:02
--- NOTE | 2024-06-24 | XR_ITS ---
The [address] [address] Patient Name: SERA MAHONEY MRN: [id number] date: 1980 Sex: F Assigned Patient Location: Current Patient Location: Accession/Order Number: [id number] Exam Date: 06/24/2024 12:51 Report Date: 06/26/2024 05:02 At the request of: FRANCIA COLLAZO Procedure: XR foot RT min 3V PROCEDURE: XR foot RT min 3V, XR ankle RT min 3V HISTORY: RIGHT FOOT PAIN , right ankle pain COMPARISON: XR ankle right 04/01/2024, XR foot right 03/11/2024 FINDINGS: BONES:Mechanical fusion of the ankle joint and hindfoot via intramedullary bear and locking screws. Prosthetic spacer replacement of the talus. Resection of distal fibula. Mild degenerative changes the first metatarsophalangeal joint and suspected prior bunionectomy. Prominent degenerative enthesopathic spurring of the calcaneus. SOFT TISSUES:No visible soft tissue swelling. EFFUSION:None visible. OTHER: Negative. XR/XR foot RT min 3V IMPRESSION: 1. Stable surgical changes without evidence of hardware failure or change in alignment. 2. Stable mild/moderate degenerative changes. Electronically authenticated by: JERZY MURRIETA Date: 06/26/2024 05:02
== END 2024-06-24 12:48 | disposition home or self-care (01) ==
LOC: EC 12:47
PROVIDERS: Visit Provider Podiatrist Foot & Ankle Surgery
DX: M25.571 Pain in right ankle and joints of right foot (principal); Z98.890 Other specified postprocedural states
CPT/HCPCS: 73610; 73630

== ENCOUNTER 2024-10-06 09:50 | Outpatient (OUT) | payer BC, SELFPAY ==
--- NOTE | 2024-10-06 09:55 | XR_ITS ---
The [address] [address] Patient Name: SERA MAHONEY MRN: [id number] date: 1980 Sex: F Assigned Patient Location: [facility] Current Patient Location: Accession/Order Number: [id number] Exam Date: 10/06/2024 09:55 Report Date: 10/10/2024 06:52 At the request of: FRANCIA COLLAZO Procedure: XR ankle RT min 3V PROCEDURE: XR ankle RT min 3V HISTORY: Pain right ankle COMPARISON: XR ankle right 06/24/2024 FINDINGS: BONES:Ankle and hindfoot fusion via intramedullary bear and locking screws. Prosthetic spacer replacement of the talus. Resection of distal fibula. Large calcaneal plantar spur. SOFT TISSUES:Soft tissue swelling surrounding the ankle. EFFUSION:None visible. OTHER: Negative. XR/XR ankle RT min 3V IMPRESSION: 1. Stable surgical changes without evidence of hardware failure or change in alignment. Electronically authenticated by: JERZY MURRIETA Date: 10/10/2024 06:52
--- OUTSIDE RECORDS SUMMARY | 2024-10-06 10:12 | XMS_ITS | CCD ---
Author Organization [facility] Care Team Providers Care Cnc Manager Name Role Phone Hetal Adair Unavailable Unavailable Unavailable Unavailable Unavailable CELESTE, Dr. HETAL RAMOS Primary Care ARLETH Ji Attending Unavailable CELESTE, Dr. HETAL RAMOS Primary Care ARLETH Ji Attending Unavailable CELESTE, Dr. HETAL RAMOS Referring Unavai labviola ADAIR, Dr. HETAL RAMOS Primary Care Unavai lab ADAIR, Dr. HETAL RAMOS Attending Unavai lable ADAIR, Dr. HETAL RAMOS Referring Unavai lable ADAIR, Dr. HETAL RAMOS Attending Unavai lable ADAIR, Dr. HETAL RAMOS Referring Unavai lable ADAIR, Dr. HETAL RAMOS Primary Care Unavai lable ADAIR, Dr. HETAL RAMOS Primary Care Unavai lable ADAIR, Dr. HETAL RAMOS Attending Unavai lable ADAIR, Dr. HETAL RAMOS Referring Unavai lable ADAIR, Dr. HETAL RAMOS Attending Unavai lable ADAIR, Dr. HETAL RAMOS Referring Unavai lable ADAIR, Dr. HETAL RAMOS Primary Care Dinava FRANCIA Chatterjee Admitting Unavailable FRANCIA WHITESIDE Attending Unavailable BOYD, DR WELLINGTON Forrest Consulting Unavailable FRANCIA WHITESIDE Consulting Unavailable FRANCIA WHITESIDE Admitting Unavailable FRANCIA WHITESIDE Attending Unavailable LIT, DR JERZY Watts Consulting Unavailable FRANCIA WHITESIDE Consulting Unavailable FRANCIA WHITESIDE Admitting Unavailable FRANCIA WHITESIDE Attending Unavailable LIT, DR JERZY Watts Consulting Unavailable HIGHLANDER, FRANCIA Anderson Consulting Unavailable HIGHLANDER, FRANCIA Anderson Admitting Unavailable HIGHLANDER, FRANCIA Anderson Attending Unavailable HIGHLANDER, FRANCIA Anderson Admitting Unavailable HIGHLANDER, FRANCIA Anderson Attending Unavailable ZIJADA, DR JERZY Watts Consulting Unavailable HIGHLANDER, FRANCIA Anderson Consulting Unavailable HIGHLANDER, FRANCIA Anderson Admitting Unavailable HIGHLANDER, FRANCIA Anderson Attending Unavailable HIGHLANDER, FRANCIA Anderson Consulting Unavailable MARLYN COOPER Consulting Unavailable HIGHLANDER, PETER Justin Admitting Unavailable HIGHLANDER, FRANCIA Anderson Attending Unavailable HIGHLANDER, FRANCIA Anderson Consulting Unavailable KERN, CALEB Consulting Unavailable JOSE ., JENNI MITCHELL Consulting Unavailable SHARP, ELYSE Consulting Unavailable JEFF II, KIM Consulting Unavailable HIGHLANDER, FRANCIA Anderson Admitting Unavailable HIGHLANDER, FRANCIA Anderson Attending Unavailable LIT, DR JERZY Watts Consulting Unavailable HIGHLANDER, FRANCIA Anderson Consulting Unavailable BradenCesarif Unavailable Celeste VALE, Hetal Recio Primary Care Provider Hetal Adair MD Unavailable [phone] CELESTE, HETAL Primary Care Unavailable EVANGELINA DPM, KOREY Attending Unavailable EVANGELINA AUGUST, KOREY Referring Unavailable ADAIR, HETAL Primary Care Unavailable DEWAYNE GARRISON MD Attending Unavailable DEWAYNE GARRISON MD Referring Unavailable ADAIR, HETAL Primary Care Unavailable ADAIR, HETAL Primary Care Unavailable STEFAN SOTO Attending UnavailSTEFAN Wisdom Referring Unavailabl DEWAYNE Martinez MD Attending Unavailable DEWAYNE GARRISON MD Referring Unavailable ADAIR, HETAL Primary Care Unavailable ADAIR, HETAL Primary Care Unavailable ADAIR, HETAL Primary Care Unavailable STEFAN SOTO Attending Unavailmaribell Adair MD, Hetal K Unavailable CELESTE, HETAL Primary Care Unavailable AMINAH BONNER MD Attending Unavailable CELESTE, HETAL Primary Care Unavailable HIGHLANDER, FRANCIA Anderson Referring Unavailable HIGHLANDER, FRANCIA Anderson Attending Unavailable HETAL ADAIR MD Attending Unavailable ADAIR, HETAL Primary Care Unavailable ADAIR, HETAL Primary Care Unavailable CELESTE HETAL K Attending Unavailable ADAIR, HETAL K Primary Care Unavailable ADAIR HETAL K Attending Unavailable ADAIR, HETAL K Primary Care Unavailable ADAIR, HETAL K Attending Unavailable ADAIR, HETAL K Primary Care Unavailable Allergies Allergy Classification Reported Allergen(s) Allergy Type Date of Onset Reaction(s) Facility Acetaminophen / oxyCODONE (2 sources) Acetaminophen / oxyCODONE; Translations: [Percocet TABS] Drug Allergy [facility] [employer] Work Phone: Macrolides (antibiotic) (1 source) Azithromycin; Translations: [Zithromax PACK] Drug Allergy [facility] Work Phone: (20 sources) Acetaminophen / oxyCODONE; Translations: [Percocet TABS] Drug Allergy 2 Hallucinations , Rash [facility] Work Phone: (20 sources) Azithromycin; Translations: [Zithromax PACK] Drug Allergy 2 Rash [facility] Work Phone: (2 sources) Acetaminophen / oxyCODONE Drug Allergy [facility] Repository (2 sources) Adhesive agent Drug allergy (disorder) [facility] Repository (3 sources) Azithromycin; Translations: [AZITHROMYCIN] Drug Allergy 2 [facility] Repository (1 source) Penicillins Propensity to adverse reactions 4 [facility] Work Phone: (1 source) Acetaminophen / oxyCODONE; Translations: [OXYCODONE-ACETAM INOPHEN] Drug Allergy 2 [facility] 3 Repository Medications Current Medications Medication Drug Class(es) Dates Sig (Normalized) Sig (Original) acetaminophen 325 mg / HYDROcodone bitartrate 5 mg oral tablet (6 sources) Opioid Agonist take 1 tablet by mouth every six hours HYDROcodone-Aceta minophen 5-325 MG 1 tablet as needed Orally every 6 hrs Active [id number] actuat albuterol 0.09 mg/actuat metered dose inhaler (3 sources) beta2-Adrenergic Agonist Start: 10-21-2023 End: 10-20-2024 take 2 puff(s) by inhalation every four hours for wheezing albuterol (ProAir HFA) 90 mcg/actuation inhaler Indications: Bronchitis Inhale 2 puffs every 4 hours if needed for wheezing or shortness of breath. 8.5 g 10/21/2023 10/20/2024 Active amLODIPine 5 mg / benazepril hydrochloride 20 mg oral capsule (20 sources) Dihydropyridine Calcium Channel Irina, Angiotensin Converting Enzyme Inhibitor Start: 06-23-2024 take 1 capsule by mouth once daily amLODIPine-benaze priL (Lotrel) 5-20 mg capsule Indications: Benign essential hypertension Take 1 capsule by mouth once daily. 90 capsule 3 06/23/2024 Active Start: 03-17-2023 End: 06-28-2023 take 1 capsule by mouth once daily amLODIPine-benazepriL (Lotrel) 5-20 mg capsule Indications: Benign essential hypertension Take 1 capsule by mouth once daily. 90 capsule 3 06/28/2023 Active Start: 12-14-2020 take 5-20 mg by mout h once daily amLODIPine Besy-Benazepril HCl - 5-20 MG Oral Capsule TAKE 1 CAPSULE Daily Quantity: 90 Refills: 1 Ordered: 28-Jul-2022 Hetal Adair MD Start : 14-Dec-2020 Active amLODIPine Benzoate 1 MG/ML (6 sources) take 1 mg by mouth once daily amLODIPine Benzoate 1 MG/ML 5 mL Orally Once a day Active DULoxetine 20 mg delayed release oral capsule (14 sources) Serotonin and Norepinephrine Reuptake Inhibitor Start: End: take 1 capsule by mouth twice daily DULoxetine (Cymbalta) [address] capsule Indications: Adjustment disorder with mixed anxiety and depressed mood Take 1 capsule (20 mg) by mouth 2 times a day. Do not crush or chew. 60 capsule 11 01/12/2024 01/11/2025 Active Start: 04-05-2023 take 1 capsule by mo uth once daily in the morning Cymbalta 20 MG 1 capsule Orally daily in the AM for 30 days Apr, Active Start: 07-18-2022 take 1 capsule by mo uth once daily DULoxetine HCl - 20 MG Oral Capsule Delayed Release Particles one by mouth daily Quantity: 90 Refills: 3 Ordered: 18-Jul-2022 Hetal Adair MD Start : 18-Jul-2022 Active Ethinyl Estradiol / Levonorgestrel (4 sources) Progestin, Estrogen, Progestin-containing Intrauterine Device Start: 04-12-2020 take 1 tablet by mouth once daily L norgest/e.estradioL-e.estrad (Seasonique) 0.15 mg-30 mcg (84)/10 mcg (7) tablets,dose pack,3 month tablet Take 1 tablet by mouth once daily. 04/12/2020 Active Start: 04-12-2020 take 1 tablet by akhil th once daily L norgest/e.estradioL-e.estrad (Seasoniq ue) 0.15 mg-30 mcg (84)/10 mcg (7) tablets,dose pack,3 month tablet Take 1 tablet by mouth once daily. 0 04/12/2020 Active gabapentin 300 mg oral capsule (6 sources) Anti-epileptic Agent take 1 capsule by mouth twice daily Gabapentin 300 MG 1 capsule Orally twice daily G89.29 Active meloxicam 15 mg oral tablet (19 sources) Nonsteroidal Anti-inflammatory Drug Start: 3 End: 3 take 1 tablet by mouth once daily meloxicam (Mobic) 15 mg tablet Indications: Avascular necrosis of right talus (Multi) Take 1 tablet (15 mg) by mouth [...] Quantity: 20 Refills: 1 Ordered: 11-Sep-2022 Hetal Adair MD Start : 11-Sep-2022 Active amoxicillin 875 mg / clavulanate 125 mg oral tablet (1 source) Penicillin-class Antibacterial Start: 08-19-2024 End: 08-29-2024 take 1 tablet by mouth twice daily amoxicillin-pot clavulanate (Augmentin) 875-125 mg tablet Indications: Tonsillitis Take 1 tablet (875 mg) by mouth 2 times a day for 10 days. 20 tablet 08/19/2024 08/29/2024 betamethasone 0.5 mg/ml / clotrimazole 10 mg/ml topical cream (12 sources) Azole Antifungal, Corticosteroid Start: 08-11-2021 End: 07-18-2022 Clotrimazole-Betam ethasone 1-0.05 % External Cream APPLY AND RUB IN A THIN FILM TO AFFECTED AREAS TWICE DAILY.(AM AND PM). Quantity: 1 Refills: 3 Ordered: 11-Aug-2021 Hetal Adair MD Start : 11-Aug-2021 End : 18-Jul-2022 Complete brompheniramine maleate 0.4 mg/ml / dextromethorphan hydrobromide 2 mg/ml / pseudoephedrine hydrochloride 6 mg/ml oral solution (1 source) alpha-Adrenergic Agonist, Uncompetitive Q-puobzq-A-aspartat e Receptor Antagonist, Sigma-1 Agonist Start: 10-21-2023 [...] Quantity: 90 Refills: 0 Ordered: 23-Mar-2022 Hetal Adair MD Start : 24-Mar-2021 End : 18-Jul-2022 [...] Quantity: 14 Refills: 0 Ordered: 11-Dec-2021 Hetal Adair MD Start : 11-Dec-2021 Active Disability Placard (7 sources) Start: 07-18-2022 Disability Placard Handicap Placard 5years, DX: Arthritis Quantity: 2 Refills: 0 Ordered: 18-Jul-2022 Hetal Adair MD Start : 18-Jul-2022 Active escitalopram 5 [...] Quantity: 2 Refills: 1 Ordered: 11-Sep-2022 Hetal Adair MD Start : 11-Sep-2022 Active Start: 08-11-2021 End: 07-18-2022 take 1 tablet by mouth once daily Fluconazole 100 MG Oral Tablet one by mouth daily Quantity: 7 Refills: 0 Ordered: 11-Aug-2021 Hetal Adair MD Start : 11-Aug-2021 End : 18-Jul-2022 Complete ibuprofen 800 mg oral tablet (10 sources) Nonsteroidal Anti-inflammatory Drug Start: 12-11-2021 End: 07-18-2022 take 1 tablet by mouth every eight hours at mealtime as needed Ibuprofen 800 MG Oral Tablet TAKE 1 TABLET EVERY 8 HOURS WITH FOOD NEEDED. Quantity: 30 Refills: 1 Ordered: 11-Dec-2021 Hetal Adair MD Start : 11-Dec-2021 End : 18-Jul-2022 [...] : 18-Dec-2021 End : 18-Jul-2022 Complete methylPREDNISolone (2 sources) Corticosteroid Start: 08-19-2024 End: 08-26-2024 methylPREDNISolone (Medrol Dospak) 4 mg tablets Indications: Tonsillitis Take as directed on package. 21 tablet 08/19/2024 08/26/2024 Start: 10-21-2023 End: 10-28-2023 methylPREDNISolone (Medrol D ospak) 4 mg tablets Indications: Bronchitis Take as directed on package. 21 tablet 0 10/21/2023 10/28/2023 tamsulosin hydrochloride 0.4 mg oral capsule (10 sources) alpha-Adrenergic Irina Start: 12-11-2021 End: 07-18-2022 take 1 capsule by mouth once daily Tamsulosin HCl - 0.4 MG Oral Capsule TAKE 1 CAPSULE Daily Quantity: 30 Refills: 0 Ordered: 11-Dec-2021 Hetal Adair MD Start : 11-Dec-2021 End : 18-Jul-2022 Complete Problems Active Problems Problem Classification Problem Date Documented Da te Episodic/Chronic Acute and chronic tonsillitis (5 sources) Tonsillitis; Translations: [Acute tonsillitis, unspecified] Onset: 08-19-2024 08-19-2024 Episodic Adjustment disorders (20 sources) Adjustment disorder with mixed anxiety and depressed mood; Translations: [Adjustment disorder with mixed anxiety and depressed mood] Onset: 07-18-2023 07-18-2023 Chronic Deficiency and other anemia (1 source) Anemia, unspecified; Translations: [ANEMIA UNSPECIFIED] Onset: 01-23-2023 Episodic Endometriosis (4 sources) Uterine adenomyosis; Translations: [Adenomyosis] Onset: 08-17-2013 [...] fatigue] Episodic Comment on above: Added by Ute Frank; 2013-10-13; Osteoarthritis (5 sources) Post-traumatic osteoarthritis, right ankle and foot; Translations: [POST-TRAUM OSTEOARTHRITIS RT ANK FT] Onset: 01-23-2023 Chronic Other acquired deformities (1 source) Contracture, right ankle; Translations: [CONTRACTURE RIGHT ANKLE] Onset: 01-23-2023 Chronic Other aftercare (1 source) group home (current) use of aspirin; Translations: [BOLT LOADER CURRENT USE OF ASPIRIN] Onset: 01-23-2023 Episodic Other bone disease and musculoskeletal deformities (20 sources) Avascular necrosis of the talus; Translations: [Aseptic necrosis of talus] Onset: 06-28-2023 06-28-2023 Chronic Other bone disease and musculoskeletal deformities (5 sources) Idiopathic aseptic necrosis of right ankle; Translations: [IDIOPATH ASEPTIC NECROSIS RT ANKLE] Onset: 01-08-2023 Chronic Other bone disease and musculoskeletal deformities (1 source) Aseptic necrosis of right talus; Translations: [Idiopathic aseptic necrosis of right ankle] Onset: 06-28-2023 06-28-2023 Chronic Other connective tissue disease (1 source) [...] lower limb] Chronic Other nervous system disorders (4 sources) Complex regional pain syndrome of lower limb; Translations: [Complex regional pain syndrome I of unspecified lower limb] Onset: 05-14-2023 07-18-2023 Chronic Other nervous system disorders (4 sources) Chronic pain syndrome; Translations: [Chronic pain [...] Problem Date Documented Date Episodic/Chronic Abdominal pain (18 sources) Right flank pain; Translations: [Abdominal pain, other specified site] Onset: 07-18-2023 Resolved: 07-18-2023 07-18-2023 Episodic Calculus of urinary tract (20 sources) Renal colic; Translations: [Renal colic] Onset: 07-18-2023 Resolved: 07-18-2023 07-18-2023 Episodic Chronic obstructive pulmonary disease and bronchiectasis (6 sources) Bronchitis; Translations: [Bronchitis, not specified as acute or chronic] Onset: 10-21-2023 10-21-2023 Episodic Genitourinary symptoms and ill-defined conditions (20 sources) Blood in urine; Translations: [Hematuria, unspecified] Onset: 07-18-2023 Resolved: 07-18-2023 07-18-2023 Episodic Lymphadenitis (6 sources) Lymphadenopathy; Translations: [Enlargement of lymph nodes] Onset: 07-18-2023 Resolved: 07-18-2023 07-18-2023 Episodic Mood disorders (20 sources) Depressive disorder; Translations: [Depressive disorder, not elsewhere classified] Onset: 07-18-2023 Resolved: 12-27-2023 07-18-2023 Chronic Comment on above: Added by Problem Kenia gilliam Migration; 2013-10-13; Mycoses (20 sources) Candidal intertrigo; Translations: [Candidiasis of skin and nails] Onset: 07-18-2023 Resolved: 07-18-2023 07-18-2023 Episodic Other connective tissue disease (7 sources) Cramp in lower limb; Translations: [Cramp of limb] Onset: 07-18-2023 Resolved: 07-18-2023 07-18-2023 Episodic Other connective tissue disease (4 sources) Pain in right foot; Translations: [PAIN IN RIGHT FOOT] Onset: 11-14-2022 Episodic Other connective tissue disease (3 sources) Paraparesis; Translations: [Other symptoms and signs involving the musculoskeletal system] Onset: 01-17-2024 12-27-2023 Episodic Other connective tissue disease (2 sources) Other symptoms and signs involving the musculoskeletal system; Translations: [Other symptoms and signs involving the musculoskeletal system] Onset: 12-27-2023 Episodic Other injuries and conditions due to external causes (4 sources) Injury of left hip region; Translations: [Unspecified injury of left hip, initial encounter] Onset: 07-18-2023 Resolved: 07-18-2023 07-18-2023 Episodic Other non-traumatic joint disorders (4 sources) Ankle pain; Translations: [Pain in right ankle and joints of right foot] Onset: 05-14-2023 Resolved: 07-18-2023 07-18-2023 Episodic Other non-traumatic joint disorders (3 sources) Hip pain; Translations: [Pain in right hip] Onset: 01-17-2024 12-27-2023 Episodic Other non-traumatic joint disorders (2 sources) Pain in right hip; Translations: [Pain in right hip] Onset: 12-27-2023 Episodic Other non-traumatic joint disorders (2 sources) Pain in left hip; Translations: [Pain in left hip] Onset: 12-27-2023 Episodic Other and delivery including normal (4 sources) Vaginal delivery; Translations: [Encounter for full-term [...] Onset: 07-18-2023 Resolved: 07-18-2023 07-18-2023 Episodic Unclassified (4 sources) Onset: 06-28-2023 Resolved: 08-19-2024 06-28-2023 Results Test Name Value Interpretation Reference Range Facility AMB ENT Physician Progress N mata 08-27-2024 AMB ENT Physician Progress Note SERA WOO :1980 Registration Date:08/27/2024 Chief Complaint New patient presents with c/o growth on tonsil. History of Present Illness This very nice lady had a recent flareup of pharyngitis. She related this to exposure to a virus that is going through the household. He was recently seen by her primary doctor was concerned about irregularity along the 1 tonsil. I am asked to provide further recommendations. She was given Augmentin and a steroid. She notes that the tonsil is much smaller now, and feels back to normal. Regardless, she does have some irritation of the lower throat. She has had some acid reflux complaints for the first time since she has been on the steroid and antibiotic. She denies any problems with this previously. She does have an extensive history of foot surgery related to necrosis of her talus Review of Systems Noncontributory except as noted below Physical Exam Vitals & Measurements Height/Length Measured: 168 cm (08/27/24 13:52:00) Weight Measured: 145 kg (08/27/24 13:52:00) Body Mass Index Measured: 51.37 kg/m2 (08/27/24 13:52:00) Weight Measured - lbs2: 320 lb (08/27/24 13:52:00) Height/Length Measured - in2: 66 in (08/27/24 13:52:00) Body Mass Index Measured English2: 51.64 kg/m2 (08/27/24 13:52:00) BSA: 2.6 m2 (08/27/24 13:52:00) Ht/Wt Measurement Refused by Patient?2: No (08/27/24 13:52:00) Depression Screening Scores Initial Depression Screen Score: 0 (08/27/24 13:52:00) Fall Risk Assessment Is the patient ambulatory (mobile): Yes (08/27/24 13:52:00) Have you had a fall within the past: No (08/27/24 13:52:00) Have you had 2 or more falls in the past: No (08/27/24 13:52:00) Ear examination is normal. Nasal exam shows a patent airway on both sides. She has a mild deviated septum. There is no polyposis or pus. The lips and oral cavity are within normal limits. Oropharynx is normal as well. Her tonsils are back to normal in both sides, being approximately 2 and a scale of 4, but there is no mass, lesion, nor any irregularity. There is no leukoplakia. Mirror examination of the hypopharynx and larynx was not tolerated, so after informed consent I anesthetized the nose with a spray of lidocaine with Ming-Synephrine, and performed a fiberoptic laryngoscopy. This demonstrated no deformity, lesion, or anything else unusual except for minor erythema of the posterior glottis consistent with her reflux history. Examination of the neck shows no mass, lesion, or asymmetry. There is no palpable adenopathy. Evaluation of the thyroid bed shows no asymmetry, mass, or lesion. She does have an obese neck Medication Reconciliation What How Much When Why Instructions Unchanged acetaminophen-hydrocodone (acetaminophen-HYDROcodone 325 mg-5 mg oral tablet) 2 Tabs Oral EVERY SIX HOURS as needed for Moderate to Severe Pain Closed dislocation of right talus Unchanged amlodipine-benazepril (amlodipine-benazepril 5 mg-20 mg oral capsule) 90 EA, TAKE 1 CAPSULE BY MOUTH DAILY Unchanged amoxicillin-clavulanate = Augmentin (amoxicillin-clavulanate 875 mg-125 mg oral tablet) Unchanged ethinyl estradiol-levonorgestrel (Ashlyna oral tablet) 1 Tabs Oral AT BEDTIME Unchanged meloxicam (Mobic 15 mg oral tablet) 1 Tabs Oral DAILY Duration: 30 Days Unchanged methylPREDNISolone (Medrol 4 mg oral tablet) 1 Packets Oral DAILY Duration: 6 Days as directed on package labeling Unchanged ondansetron (Zofran 8 mg oral tablet) 1 Tabs Oral EVERY EIGHT HOURS as needed for as needed for nausea/vomiting Unchanged topiramate (Topamax 50 mg oral tablet) See instructions 1-2 tabs ORAL HS Unchanged venlafaxine (venlafaxine 37.5 mg oral tablet = effexor) 1 Tabs Oral TWICE A DAY Duration: 30 Days Assessment/Plan This Visit Diagnosis 1. Tonsillitis J03.90 This is responded nicely to the treatment offered by her primary doctor. I have encouraged adding peroxide and water gargles for a few weeks to keep things as healthy as possible. Ordered: AMB Laryngoscopy, flexible fiberoptic; diag [id number], 08/27/2024 14:01:00 EDT, Tonsillitis / Lesion of tonsil / Chronic GERD, 1 AMB Office/Outpt New Pt Low MDM / 30 min [id number], 08/27/2024 14:01:00 EDT, Tonsillitis / Lesion of tonsil / Chronic GERD 2. Lesion of tonsil J35.9 Despite her history I see no obvious mass or lesion today. I have encouraged follow-up with me over the next month if her symptoms persist, or if she notes anything unusual. Ordered: AMB Laryngoscopy, flexible fiberoptic; diag [id number], 08/27/2024 14:01:00 EDT, Tonsillitis / Lesion of tonsil / Chronic GERD, 1 AMB Office/Outpt New Pt Low MDM / 30 min [id number], 08/27/2024 14:01:00 EDT, Tonsillitis / Lesion of tonsil / Chronic GERD 3. Chronic GERD K21.9 I have encouraged a course of nmhw-[id number] PPI therapy for about a month. I have asked her to let me know if the problems worsen, which time we may consider a GI assessment as well Ordered: AMB Laryngoscopy, flexible fib (more content not included)... Normal [facility] Ambulatory Clinical Summaryo n 08-27-2024 Ambulatory Clinical Summary SERA WOO :1980 Registration Date:08/27/2024 Ambulatory Visit Instructions Your Diagnosis Tonsillitis Lesion of tonsil Chronic GERD Your Care Team Attending Physician - KAILEY VALE, AMINAH Primary Care Physician - HETAL ADAIR MD Procedures Performed OPEN REDUCTION OF A DISLOCATED TALUS (04/12/2020) Cholecystectomy; ACCESSORY NAVICULAR BONE REMOVAL Cholecystectomy (procedure) Ankle Surgery Discharge Vitals Height 66.14 in (168 cm) Weight 319.72 lb (145 kg) BMI 51.37 Height/Length Measured: 168 cm (08/27/24 13:52:00) Weight Measured: 145 kg (08/27/24 13:52:00) Body Mass Index Measured: 51.37 kg/m2 (08/27/24 13:52:00) Weight Measured - lbs2: 320 lb (08/27/24 13:52:00) Height/Length Measured - in2: 66 in (08/27/24 13:52:00) Body Mass Index Measured English2: 51.64 kg/m2 (08/27/24 13:52:00) BSA: 2.6 m2 (08/27/24 13:52:00) Ht/Wt Measurement Refused by Patient?2: No (08/27/24 13:52:00) What to do next Scheduled Follow-Up Appointments No results Medications What How Much When Why Instructions Unchanged acetaminophen-hydrocodone (acetaminophen-HYDROcodone 325 mg-5 mg oral tablet) 2 Tabs Oral EVERY SIX HOURS as needed for Moderate to Severe Pain Closed dislocation of right talus Unchanged amlodipine-benazepril (amlodipine-benazepril 5 mg-20 mg oral capsule) 90 EA, TAKE 1 CAPSULE BY MOUTH DAILY Unchanged amoxicillin-clavulanate = Augmentin (amoxicillin-clavulanate 875 mg-125 mg oral tablet) Unchanged ethinyl estradiol-levonorgestrel (Ashlyna oral tablet) 1 Tabs Oral AT BEDTIME Unchanged meloxicam (Mobic 15 mg oral tablet) 1 Tabs Oral DAILY Duration: 30 Days Unchanged methylPREDNISolone (Medrol 4 mg oral tablet) 1 Packets Oral DAILY Duration: 6 Days as directed on package labeling Unchanged ondansetron (Zofran 8 mg oral tablet) 1 Tabs Oral EVERY EIGHT HOURS as needed for as needed for nausea/vomiting Unchanged topiramate (Topamax 50 mg oral tablet) See instructions 1-2 tabs ORAL HS Unchanged venlafaxine (venlafaxine 37.5 mg oral tablet = effexor) 1 Tabs Oral TWICE A DAY Duration: 30 Days Allergies Percocet Hallucination Zithromax HIVES Problems Ongoing - Any problem that you are currently receiving treatment for. Acute pharyngitis Adjustment disorder with mixed anxiety and depressed mood Avascular necrosis of the talus Backache Benign essential hypertension Blood in urine Body mass index 40+ - severely obese Candidal intertrigo Chronic GERD Chronic pain syndrome Congestion of nasal sinus CRPS 1, lower extremity History of ankle surgery Lesion of tonsil Lymphadenopathy Morbid obesity Right ankle pain Tonsillitis Common Emergency Awareness Tips IS IT A [...] call to get immediate medical attention! Normal [facility] Comprehensive Intake - Texto n 08-27-2024 Comprehensive Intake - Text Comprehensive Intake Entered On: 08/27/2024 13:52 EDT Performed On: 08/27/2024 13:52 EDT by Genevieve Rebolledo Summary Chief Complaint : New patient presents with c/o growth on tonsil. Bladder Control Issues? : No Urine Leakage? : No Presence or absence of urinary incontinence assessed : Yes CPT-II Medication list doc'd in medical record : Yes Influenza immunization administered or previously received : No Pneumococcal vaccine administered or previously received : No Genevieve Rebolledo - 08/27/2024 13:53 EDT Measurements Ht/Wt Measurement Refused by Patient? : No Weight Measured : 145 kg(Converted to: 319 lb 11 oz, 319.670 lb) Height/Length Measured : 168 cm(Converted to: 5 ft 6 in, 66.14 in) Body Mass Index Measured : 51.37 kg/m2 Body Mass Index documented : Yes Weight Measured - lbs : 320 lb(Converted to: 320 lb 0 oz, 145 kg) Height/Length Measured - in : 66 in(Converted to: 5 ft 6 in, 168 cm) Body Mass Index Measured Swiss : 51.64 kg/m2 BSA Swiss : 2.6 m2 Genevieve Rebolledo - 08/27/2024 13:52 EDT Vitals Require BP : No Pain Present : No actual or suspected pain Pain : 0 Pain severity quantified : No pain present Edgar Rebolledohanie - 08/27/2024 13:53 EDT Infection Screening Travel outside [place] within past 21 days : No Positive COVID test in the last 10 days? : No Exposure to and/or close contact with a person who has a laboratory-confirmed COVID test within the last 48 hours. : No Coronavirus New Symptoms w/o Cause : No Genevieve Rebolledo 08/27/2024 13:53 EDT Depression Screening Is patient currently : None of the Below Feeling Down, Depressed, Hopeless : Not at all Little Interest - Pleasure in Activities : Not at all Initial Depression Screen Score : 0 Depression Screening Score 0 : No Amaury Genevieve 08/27/2024 13:53 EDT Falls Risk Assessment Is the patient ambulatory (mobile) : Yes Have you had 2 or more falls in the past year : No Have you had a fall within the past year that has caused an injury : No Patient screen for fall risk : no falls in last year OR 1 fall with no injury in last year Genevieve Rebolledo 08/27/2024 13:53 EDT Normal [facility] Phone Msgon 08-25-2024 Phone Msg - From: Dina Blackmon MA To: AMINAH BONNER MD; Sent: 08/25/2024 14:47:25 EDT Subject: Paitent concern Caller Name: SERA WOO; Caller Number: H , B [phone] biomedical equipment technician called in regards to patient. Patient was seen with Dr. Adair. found growth on patient's tonsils was concerned it could be cancerous and would like for you to see her before next available. Was told to avoid Sep 08- if possible Patient will be out of town but other than that Patient is free anytime. Its okay to leave a message if she doesn't answer the phone. Patient would be new. Best callback number [phone] LV none FV non From: AMINAH BONNER MD To: Genevieve Rebolledo; Sent: 08/25/2024 15:34:05 EDT Subject: FW: Krist concern Caller Name: SERA WOO; Caller Number: H , B [phone] Add on Spoke with patient. Added to schedule. Normal [facility] PT Outpatient Time Spent Wit h Pt-Texton 06-01-2024 PT Outpatient Time Spent With Pt-Text PT Outpatient Time Spent With Patient Entered On: 06/01/2024 14:44 EDT Performed On: 06/01/2024 14:43 EDT by Meredith Menendez PTA Time Spent with Patient - Outpatient PT Time In : 13:15 EDT PT Time Out : 14:00 EDT PT Hot, Cold Pack Time : 15 minutes LOFT PATTERNMAKER Hot, Cold Pack Units : 1 units PT Therapeutic Exercise Time : 30 minutes LOFT PATTERNMAKER Therapeutic Exercise Units : 2 units PT Total Timed Code Treatment Units : 2 units PT Total Timed Code Tx Minutes : 30 minutes 8 Min Rule Unit Check PT OP : 2 units PT Total Untimed Code Treatment Minutes : 15 minutes PT Total Treatment Time Rehab : 45 minutes 8 Min Rule Unit Difference PT OP : 0 Meredith Menendez PTA - 06/01/2024 14:43 EDT Normal [facility] PT Outpatient Time Spent Wit h Pt-Texton 05-22-2024 PT Outpatient Time Spent With Pt-Text PT Outpatient Time Spent With Patient Entered On: 05/22/2024 11:28 EDT Performed On: 05/22/2024 11:28 EDT by Meredith Menendez PTA Time Spent with Patient - Outpatient PT Time In : 08:45 EDT PT Time Out : 09:30 EDT PT Therapeutic Exercise Time : 45 minutes LOFT PATTERNMAKER Therapeutic Exercise Units : 3 units PT Total Timed Code Treatment Units : 3 units PT Total Timed Code Tx Minutes : 45 minutes 8 Min Rule Unit Check PT OP : 3 units PT Total Treatment Time Rehab : 45 minutes 8 Min Rule Unit Difference PT OP : 0 Meredith Menendez PTA - 05/22/2024 11:28 EDT Normal [facility] Foot and Ankle Ability Measu re - Texton 05-20-2024 Foot and Ankle Ability Measure - Text Foot and Ankle Ability Measure (FAAM) Entered On: 05/20/2024 14:55 EDT Performed On: 05/20/2024 14:54 EDT by Abdoulaye Aguiar PT Foot and Ankle Ability Measure (FAAM) Please answer every question with one response that most closely describes your condition within the past week. If the activity in question is limited by something other than your foot or ankle, aminah N/A. Standing : Moderate difficulty Walking on even ground : Extreme difficulty Walking on even ground without shoes : Moderate difficulty Walking up hills : Unable to do Walking down hills : Unable to do Going up stairs : Unable to do Going down stairs : Unable to do Walking on uneven ground : Unable to do Stepping up and down curbs : Unable to do Squatting : Unable to do Coming up on your toes : Unable to do Walking initially : Unable to do Walking 5 minutes or less : Unable to do Walking approximately 10 minutes : Unable to do Walking 15 minutes or greater : Unable to do Abdoulaye Aguiar PT - 05/20/2024 14:54 EDT Because of your foot and ankle how much difficulty do you have with: Home responsibilities : Unable to do Activities of daily living : Extreme difficulty Personal care : Moderate difficulty Light to moderate work (standing, walking) : Unable to do Heavy work (push/pulling, climbing, carrying) : Unable to do Recreational activities : Unable to do Abdoulaye Aguiar PT - 05/20/2024 14:54 EDT Item Score : 8 # of Questions Answered : 21 FAAM Score : 9.52 % Abdoulaye Aguiar PT - 05/20/2024 14:54 EDT Normal [facility] HEP B SURFACE ANTIGEN SCREEN on 01-11-2023 HBsAg Screen Negative Normal Negative [facility] Comment on above: Performed By: #### H BSANS ####[facility] [address] [place], [place] [address]LoCortes Eubanks Rayo HEPATITIS C ANTIBODYon 01-11 Hep C Virus Ab Non-Reactive Normal Non Reactive [facility] Comment on above: Result Comment: HCV antibody alone does not differentiate between previously resolved infection and active infection. Equivocal and Reactive HCV antibody results should be followed up with an HCV RNA test to support the diagnosis of active HCV infection. Performed By: #### H CV #### [facility] [address] [place] [address] Dr. Raimundo Rayo HIV 1 AND 2 WITH REFLEXon HIV Screen 4th Generation wRfx Non-Reactive Normal Non Reactive [facility] Comment on above: Result Comment: HIV Negative HIV-1/HIV-2 antibodies and HIV-1 p24 antigen were NOT detected. There is no laboratory evidence of HIV infection. Performed By: #### H IV12 #### [facility] [address] [place] [address] Dr. Raimundo Rayo RPR QUANTon 01-11-2023 Rapid Plasma Reagin, Quant Non-Reactive Normal NonRea<1:1 [facility] Comment on above: Result Comment: Plea se Note: This test does not meet current guidelines for screening and diagnosis of syphilis. This test is intended for following treatment response in patients being treated for syphilis infection. To screen for syphilis infection, a reflex cascade that includes both RPR and a treponema-specific assay should be utilized, such as Treponema pallidum (Syphilis) Screening [place] (469496) or Rapid Plasma Reagin (RPR) Test With Reflex to Quantitative RPR and Confirmatory Treponema pallidum Antibodies (714310). Performed By: #### R PRQ #### [facility] [address] [place] [address] Dr. Raimundo Rayo HIV 1/2 RAPID (EXPOSURE ONLY )on 01-10-2023 HIV AB Non-Reactive Normal NON-REACTIVE [facility] Comment on above: Performed By: #### R PDHIV #### [facility] [address] [place] [address] Dr. Raimundo Rayo HIV AG Non-Reactive Normal NON-REACTIVE [facility] Comment on above: Performed By: #### R PDHIV #### [facility] [address] [place] [address] Dr. Raimundo Rayo INTERNAL CONTROLS Within Normal Limits Normal Wi thin Normal Limits [facility] Comment on above: Performed By: #### R PDHIV #### [facility] [address] [place] [address] Dr. Raimundo Rayo RAPID HIV INFO SEE BELOW Normal [facility] Comment on above: Result Comment: This test is used for the initial screening of the exposure source. Confirmation of all reactive results will be obtained through reference lab testing. Performed By: #### R PDHIV #### [facility] [id number] Raimundo Rayo POINT OF CARE GLUCOSEon 03-0 Glucose [Mass/Vol] 86 mg/dL Normal 74-106 [facility] Comment on above: Performed By: #### P OCGLUC #### [facility] [id number] Raimundo Rayo Glucose [Mass/Vol] 79 mg/dL Normal 74-106 [facility] Comment on above: Performed By: #### P OCGLUC ####[facility] [address] [place], [place] [address]IfDr. Raimundo Rayo PREG HCG QUALon 01-10-2023 , QUAL Negative Normal NEGATIVE [facility] Comment on above: Performed By: #### P REG #### [facility] [id number] Raimundo Rayo XR ANKLE RT MIN [...] CALEB KERN Date: 2023-01-10 16:24 Normal [facility] XR FOOT RT 2Von 01-10-2023 XR FOOT RT 2V EXAM: XR FOOT RT 2V. HISTORY: Pain. COMPARISON: 11/14/2022. TECHNIQUE: Intraoperative fluoroscopic view of the right ankle was obtained. Total fluoroscopy time: 32.1 seconds. FINDINGS/IMPRESSION: Intraoperative fluoroscopic utilization for right ankle surgery. Please refer to the operative report for detailed discussion. Electronically authenticated by: CALEB KERN Date: 2023-01-10 17:11 Normal [facility] CBC AUTO DIFFon 01-07-2023 BASO # 0.0 103/ul Normal 0.0-0.1 [facility] Comment on above: Performed By: #### C BC #### [facility] [address] [address] [address] Raimundo Rayo Basophils/100 WBC (Bld) 0.6 % Normal 0.2-2.0 [facility] Comment on above: Performed By: #### C BC #### [facility] [address] [address] [address] Raimundo Rayo EO # 0.1 103/ul Normal 0.0-0.7 [facility] Comment on above: Performed By: #### C BC #### [facility] [address] [address] [address] Raimundo Rayo Eosinophils/100 WBC (Bld) 1.1 % Normal 0.9-7.0 [facility] Comment on above: Performed By: #### C BC #### [facility] [address] [address] [address] Raimundo Rayo Erythrocyte distribution width (RBC) [Ratio] 13.6 % Normal 11.0-15.0 [facility] Comment on above: Performed By: #### C BC #### [facility] [address] [place] [address] Dr. Raimundo Rayo Hematocrit (Bld) [Volume fraction] 40.0 % Normal 36.0-48.0 [facility] Comment on above: Performed By: #### C BC #### [facility] [address] [place] [address] Dr. Raimundo Rayo Hemoglobin (Bld) [Mass/Vol] 13.0 g/dL Normal 12.0-16.0 [facility] Comment on above: Performed By: #### C BC #### [facility] [address] [place] [address] Dr. Raimundo Rayo IG # 0.03 10e3/ul Normal 0.00-0.03 [facility] Comment on above: Performed By: #### C BC #### [facility] [address] [place] [address] Dr. Raimundo Rayo IG % 0.4 % Normal 0.0-0.5 [facility] Comment on above: Performed By: #### C BC #### [facility] [address] [place] [address] Dr. Raimundo Rayo LYMPH # 1.7 103/ul Normal 1.2-3.8 [facility] Comment on above: Performed By: #### C BC #### [facility] [address] [place] [address] Dr. Raimundo Rayo Lymphocytes/100 WBC (Bld) 23.8 % Normal 20.5-60.0 [facility] Comment on above: Performed By: #### C BC #### [facility] [address] [place] [address] Dr. Raimundo Rayo MANUAL DIFF REQ NO Normal [facility] Comment on above: Performed By: #### C BC #### [facility] [address] [place] [address] Dr. Raimundo Rayo MCH (RBC) [Entitic mass] 28.4 pg Normal 26.7-34.0 [facility] Comment on above: Performed By: #### C BC #### [facility] [address] [place] [address] Dr. Raimundo Rayo MCHC (RBC) [Mass/Vol] 32.5 g/dL Normal 29.9-35.2 [facility] Comment on above: Performed By: #### C BC #### [facility] [address] [place] [address] Dr. Raimundo Rayo MCV (RBC) [Entitic vol] 87.5 fL Normal 81.0-99.0 [facility] Comment on above: Performed By: #### C BC #### [facility] [address] [place] [address] Dr. Raimundo Rayo MONO # 0.6 103/ul Normal 0.3-0.8 [facility] Comment on above: Performed By: #### C BC #### [facility] [address] [place] [address] Dr. Raimundo Rayo Monocytes/100 WBC (Bld) 8.0 % Normal 1.7-12.0 [facility] Comment on above: Performed By: #### C BC #### [facility] [address] [place] [address] Dr. Raimundo Rayo NEUT # 4.8 103/ul Normal 1.4-6.5 [facility] Comment on above: Performed By: #### C BC #### [facility] [address] [place] [address] Dr. Raimundo Rayo Neutrophils/100 WBC (Bld) 66.1 % Normal 43.0-75.0 [facility] Comment on above: Performed By: #### C BC #### [facility] [address] [place] [address] Dr. Raimundo Rayo Platelet mean volume (Bld) [Entitic vol] 8.5 fL Critically low 9.5-13.5 [facility] Comment on above: Performed By: #### C BC #### [facility] [address] [place] [address] Dr. Raimundo Rayo PLT 336 103/ul Normal 150-450 [facility] Comment on above: Performed By: #### C BC #### [facility] [address] [place] [address] Dr. Raimundo Rayo RBC 4.57 106/ul Normal 4.20-5.40 [facility] Comment on above: Performed By: #### C BC #### [facility] [address] [place] [address] Dr. Raimnudo Rayo WBC 7.2 103/ul Normal 4.0-11.0 [facility] Comment on above: Performed By: #### C BC #### [facility] [address] [place] [address] Dr. Raimundo Rayo PROF CHEM 8 (BAS METB)on Anion gap [Moles/Vol] 11.3 mmol/L Normal [facility] Comment on above: Performed By: #### B MP ####[facility] [address] [place], [place] [address]Dr. Raimundo Rayo Calcium [Mass/Vol] 9.1 mg/dL Normal 8.5-10.1 [facility] Comment on above: Performed By: #### B MP ####[facility] [address] [address]Dr. Raimundo Rayo Chloride [Moles/Vol] 105 mmol/L Normal 98-107 [facility] Comment on above: Performed By: #### B MP ####[facility] [address] [address]Dr. Raimundo Rayo CO2 [Moles/Vol] 27.0 mmol/L Normal 21.0-32.0 [facility] Comment on above: Performed By: #### B MP ####[facility] [address] [place], [place] [address]Dr. Raimundo Rayo Creatinine [Mass/Vol] 0.53 mg/dL Critically low 0.55-1.02 [facility] Comment on above: Performed By: #### B MP ####[facility] [address] [place], [place] [address]Dr. Raimundo Rayo EGFR-AF ITALIAN >60 Normal >=60 [facility] Comment on above: Performed By: #### B MP ####[facility] [address] [place], [place] [address]Dr. Raimundo Rayo EGFR-NON AF ITALIAN >60 Normal >=60 [facility] Comment on above: Performed By: #### B MP ####[facility] [address] [place], [place] [address]Dr. Raimundo Rayo Glucose [Mass/Vol] 104 mg/dL Normal 74-106 [facility] Comment on above: Performed By: #### B MP ####[facility] [address] [place], [place] [address]Dr. Raimundo Rayo Potassium [Moles/Vol] 4.3 mmol/L Normal 3.5-5.1 [facility] Comment on above: Performed By: #### B MP ####[facility] [address] [place], [place] [address]Dr. Karynpradeep Girma Sodium [Moles/Vol] 139 mmol/L Normal 136-145 [facility] Comment on above: Performed By: #### B MP ####[facility] [address] [place], [place] [address]Jb. Raimundo Rayo Urea nitrogen [Mass/Vol] 10.0 mg/dL Normal 7.0-18.0 [facility] Comment on above: Performed By: #### B MP ####[facility] [address] [place], [place] [address]Pa. Raimundo Rayo Urea nitrogen/Creatini ne [Mass ratio] 18.9 mg/mg Normal [facility] Comment on above: Performed By: #### B MP ####[facility] [address] [place], [place] [address]Gf. R[address] Rayo CT ANKLE RT WO CONon 023 CT [...] by: WELLINGTON NIX Date: 2022-11-21 16:19 Normal [facility] Office Visit (Family Medicin e)on 09-11-2022 Follow-up [...] By signing my name below, I, Cynthia HendersonShaunna membreno, attest that this documentation has been prepared under the direction and in the presence of Dr. Hetal Adair. Cynthia Rolly 09/11/22 Chief Complaint swollen gland. Adult Risk [...] and in the presence of Dr. Hetal Adair. Cynthia Lofton 08/20/22 Chief Complaint 1 month follow up. Adult Risk Screening Initial Fall Risk Screening: ESRA has not fallen in the last 6 [...] not included)... Normal [facility] Office Visit (Family Gallito cordova)on 07-18-2022 Follow-up visit Diagnoses/Problems Benign essential hypertension (401.1) (I10) Avascular necrosis of right talus (733.44) (M87.071) Morbid obesity with BMI of 40.0-44.9, adult (278.01,V85.41) (E66.01,Z68.41) * Orders Avascular necrosis of right talus Start: Disability Placard; Handicap Placard 5years, DX: Arthritis Pain Management Referral Evaluation and Treatment Evaluate AND Treat Status: Active Requested for: [id number] AMA Intake Activity Log Entry by kyle [...] w/ Tomosynthesis; Status:Hold For - Scheduling; Requested for:[id number]; Radiologist to Determine Optimal Study : Y [...] and in the presence of Dr. Hetal Adair. Cynthia Rolly 07/18/22 Chief Complaint possible low blood pressure/ [...] booster. Patient would like a referral to ob-quill cleaner. Patient reports she has lost weight 55 [...] Respiratory: no (more content not included)... Normal [facility] CORONAVIRUS 2019, SCREEN ASY MPTOMATICon 01-23-2022 SARS-CoV-2 (COVID-19) RNA MEKA+probe Ql (Unsp spec) Not detected Normal Not Detected [facility] Comment on above: Result Comment: . [...] patient management decisions. Fact sheet for providers: https://www.fda.gov/media/123800/download Fact sheet for patients: https://www.fda.gov/media/459422/download This test has received FDA Emergency Use Authorization (EUA) and has been verified by [facility] ([facility]). This test is only authorized for the duration of time that circumstances exist to justify the authorization of the emergency use of in vitro diagnostic tests for the detection of SARS-CoV-2 virus and/or diagnosis of COVID-19 infection under section 564(b)(1) of the Act, 21 U.S.C. 360bbb-3(b)(1), unless the authorization is terminated or revoked sooner. [facility] is certified under CLIA-88 as qualified to perform high complexity testing. Testing is performed in the [facility] laboratories located at [address] [place] [address]. Performed By: #### C OVSC #### [id number] [place] [address] Covid 19 Resultson 2 SARS-CoV-2 (COVID-19) RNA [...] You may also be contacted by the [facility] to see if any of your [...] or Naproxen (Aleve) can also be used. Ozol-lho-xbtcbhj cough and cold medicines can be used according to the instructions on the package. Some zgzp-mch-airnjpg medicines also contain acetaminophen. Make sure you [...] water are not available, use alcohol-based hand prop maker. Avoid touching your eyes, nose, and mouth [...] 24 stan[address] (more content not included)... Normal [facility] CORONAVIRUS 2019, SCREEN ASY MPTOMATICon 01-22-2022 Lab Specimen Source Nasal, Nasopharyngeal Normal [facility] Comment on above: Performed By: #### C OVSC #### [facility] [address] [place] [address] Coronavirus 2019 RNA by PCR, Screening Asymptomticon 01-22-2022 Coronavirus 2019 RNA by PCR, Screening Asymptomtic Not detected Normal See Below DP-Qdxwoil-Nh rupinder SJW 400 DO Work Phone: Comment on [...] make patient management decisions.Fact sheet for providers: https://www.fda.gov/media/850180/downloadFact sheet for patients: https://www.fda.gov/media/548710/downloadThis test has received FDA Emergency Use Authorization (EUA) and has been verified by [facility] ([facility]). This test is only authorized for the duration of time that circumstances exist to justify the authorization of the emergency use of in vitro diagnostic tests for the detection of SARS-CoV-2 virus and/or diagnosis of COVID-19 infection under section 564(b)(1) of the Act, 21 U.S.C. 360bbb-3(b)(1), unless the authorization is terminated or revoked sooner. [facility] is certified under CLIA-88 as qualified to perform high complexity testing. Testing is performed in the [facility] laboratories located at [address] [place] [address]. ABDOMEN AP VIEWon 01-19-2022 ABDOMEN AP VIEW Patient Name: SERA WOO STUDY: ABDOMEN AP VIEW INDICATION: kidney stones N20.0: Kidney stones. COMPARISON: January 19 ACCESSION NUMBER(S): [id number] ORDERING CLINICIAN: ABI KARIMI FINDINGS: Postsurgical changes right upper quadrant. Bowel gas pattern unremarkable. No pathologic calcifications noted. IMPRESSION: Grossly unremarkable radiographs of the abdomen. Electronically signed by: FRANCIA HINKLE MD Normal [facility]IC METABOLIC PANELon 01-02 Anion gap [Moles/Vol] 12 mmol/L Normal 10 - 20 [facility] Comment on above: Performed By: #### B MP #### [address] [address] Calcium [Mass/Vol] 9.3 mg/dL Normal 8.6 - 10.3 [facility] Comment on above: Performed By: #### B MP #### [address] [address] Chloride [Moles/Vol] 104 mmol/L Normal 98 - 107 [facility] [place] on above: Performed By: #### B MP #### [address] [address] Creatinine [Mass/Vol] 0.61 mg/dL Normal 0.50 - 1.05 [facility] [place] on above: Performed By: #### B MP #### [address] [address] eGFR FEMALE >90 Normal >90 [facility] [place] Comment on above: Result Comment: CALC ULATIONS OF ESTIMATED GFR ARE PERFORMED USING THE 2020 CKD-EPI STUDY REFIT EQUATION WITHOUT THE RACE VARIABLE FOR THE IDMS-TRACEABLE CREATININE METHODS. https://jasn.asnjournals.org/content//ASN.1641286134 Performed By: #### B MP #### [address] [address] Glucose [Mass/Vol] 96 mg/dL Normal 74 - 99 [facility] [place] Comment on above: Performed By: #### B MP #### [address] [address] HCO3 (Bld) [Moles/Vol] 24 mmol/L Normal 21 - 32 [facility] [place] Comment on above: Performed By: #### B MP #### [address] [address] Potassium [Moles/Vol] 4.2 mmol/L Normal 3.5 - 5.3 [facility] [place] on above: Performed By: #### B MP #### [address] [address] Sodium [Moles/Vol] 136 mmol/L Normal 136 - 145 [facility] [place] Comment on above: Performed By: #### B MP #### [address] [address] Urea nitrogen [Mass/Vol] 11 mg/dL Normal 6 - 23 [facility] [place] Comment on above: Performed By: #### B MP #### [address] [address] CBCon 01-19-2022 Erythrocyte distribution width (RBC) [Ratio] 14.5 % Normal 11.5 - 14.5 [facility] [place] Comment on above: Performed By: #### C BC #### [address] [address] Hematocrit (Bld) [Volume fraction] 43.9 % Normal 36.0 - 46.0 [facility] [place] Comment on above: Performed By: #### C BC #### [address] [address] Hemoglobin (Bld) [Mass/Vol] 13.8 g/dL Normal 12.0 - 16.0 [facility] [place] Comment on above: Performed By: #### C BC #### [address] [address] MCHC (RBC) [Mass/Vol] 31.4 g/dL Low 32.0 - 36.0 [facility] [place] Comment on above: Performed By: #### C BC #### [address] [address] MCV (RBC) [Entitic vol] 88 fL Normal 80 - 100 [facility] [place] Comment on above: Performed By: #### C BC #### [address] [address] NUCLEATED RBC 0.0 /100 WBC Normal 0.0 - 0.0 [facility] [place] Comment on above: Performed By: #### C BC #### [address] [address] Platelets (Bld) [#/Vol] 348 10*3/uL Normal 150 - 450 [facility] [place] Comment on above: Performed By: #### C BC #### [address] [address] RBC 5.00 x10E12/L Normal 4.00 - 5.20 [facility] [place] Comment on above: Performed By: #### C BC #### [address] [address] WBC (Bld) [#/Vol] 7.6 10*3/uL Normal 4.4 - 11.3 [facility] Comment on above: Performed By: #### C BC #### [address] [address] COAGULATION SCREENon 022 aPTT Coag (Bld) [Time] 31 s Normal 26 - 39 [facility] [place] Comment on above: Result Comment: Note new reference range as of 10/03/2021 at 10:00am. Performed By: #### C OAGS #### [address] [address] PT Coag (PPP) [Time] 11.2 s Normal 9.8 - 13.4 [facility] [place] on above: Result Comment: Note new reference range as of 10/03/2021 at 10:00am. Performed By: #### C OAGS #### [facility] [address] [place] [address] PT, INR 1.0 Normal 0.9 - 1.1 [facility] [place] Comment on above: Performed By: #### C OAGS #### [facility] [id number] [place] [address] [place] [address] Cult, Urineon 01-19-2022 Bacteria identified Cx Nom (U) ZP-Mynhbrz-Wv stlake [place] 400 DO Work Phone: Laboratory - Chemistry and C hemistry - challengeon 01-19-2022 Anion gap [Moles/Vol] 12 mmol/L 10 - 20 NN-Wviowww-Qg stlake SJW 400 DO Work Phone: Calcium [Mass/Vol] 9.3 mg/dL 8.6 - 10.3 PV-Zhymrij-Fs stlake [place] 400 DO Work Phone: Chloride [Moles/Vol] 104 mmol/L 98 - 107 UL-Lwaonxb-Gc stlake SJW 400 DO Work Phone: CO2 [Moles/Vol] 24 mmol/L 21 - 32 MP-Urolog y-We stlake S[place]W 400 DO Work Phone: Creatinine [Mass/Vol] 0.61 mg/dL See Below ID-Jyqylue-Wv stlake S[place]W 400 DO Work Phone: Comment on above: Reference Range: 0.5 0 - 1.05 Glucose [Mass/Vol] 96 mg/dL 74 - 99 DO-Blpveco-Gn stlake [place] 400 DO Work Phone: Potassium [Moles/Vol] 4.2 mmol/L 3.5 - 5.3 EI-Mgpevnj-Al stlake S[place]W 400 DO Work Phone: Sodium [Moles/Vol] 136 mmol/L 136 - 145 RD-Klgrdxi-Ei stlake S[place]W 400 DO Work Phone: Urea nitrogen [Mass/Vol] 11 mg/dL 6 - 23 FN-Wodcphl-Ed stlake S[place]W 400 DO Work Phone: Laboratory - Coagulationon 0 01-19-2022 aPTT Coag (PPP) [Time] 31 s 26 - 39 MA-Fijplea-Pm stfranko MOTLEYW 400 DO Work Phone: Comment on above: Note new reference r yonny as of 10/03/2021 at 10:00am. INR Coag (PPP) [Relative time] 1.0 {INR} 0.9 - 1.1 YC-Kpsxiip-Bh stfranko MOTLEYW 400 DO Work Phone: PT Coag (PPP) [Time] 11.2 s 9.8 - 13.4 VI-Xmtldhm-El stfranko TAYLOR 400 DO Work Phone: Comment on above: Note new reference r yonny as of 10/03/2021 at 10:00am. Laboratory - Hematology and Cell countson 01-19-2022 Erythrocyte distribution width (RBC) [Ratio] 14.5 % See Below OW-Tyjgunb-Tj rupinder TAYLOR 400 DO Work Phone: Comment on above: Reference Range: 11. 5 - 14.5 Hematocrit (Bld) [Volume fraction] 43.9 % See Below EZ-Yuvkutj-Qe rupinder TAYLOR 400 DO Work Phone: Comment on above: Reference Range: 36. 0 - 46.0 Hemoglobin (Bld) [Mass/Vol] 13.8 g/dL See Below JU-Inghqul-Rb rupinder TAYLOR 400 DO Work Phone: Comment on above: Reference Range: 12. 0 - 16.0 MCHC (RBC) [Mass/Vol] 31.4 g/dL below low threshold See Below DJ-Dhwfpio-Ab stfranko MOTLEYW 400 DO Work Phone: Comment on above: Reference Range: 32. 0 - 36.0 MCV (RBC) [Entitic vol] 88 fL 80 - 100 MS-Hbxivhz-Au stfranko MOTLEYW 400 DO Work Phone: Platelets (Bld) [#/Vol] 348 10*3/uL 150 - 450 [facility] 400 DO Work Phone: RBC (Bld) [#/Vol] 5.00 {x10E12/L} See Below MP -[facility] 400 DO Work Phone: Comment on above: Reference Range: 4.0 0 - 5.20 WBC (Bld) [#/Vol] 7.6 10*3/uL 4.4 - 11.3 MP-Uro logy-We [facility] 400 DO Work Phone: No Panel Informationon 01-19 >90 >90 RK-Ejgetih-Jx [facility] 400 DO Work Phone: Comment on above: CALCULATIONS OF BONNY MATED GFR ARE PERFORMED USING THE 2020 CKD-EPI STUDY REFIT EQUATION WITHOUT THE RACE VARIABLE FOR THE IDMS-TRACEABLE CREATININE METHODS.https://jasn.asnjournals.org/content/early//ASN.20 50806375 0.0 {/100_WBC} 0.0 - 0.0 -Urology -We [facility] 400 DO Work Phone: Radiologyon 01-19-2022 XR Abdomen AP Normal -Urology- We [facility] 400 DO Work Phone: URINE CULTURE,BACTERIALon URINE CULTURE,BACTERIAL PATIENT: SERA WOO LOCATION: [facility] BILL#: [id number] : 76 AGE: SEX: F ORDERED BY: ABI KARIMI SOURCE: URINE COLLECTED: 01/19/22 09:45 ANTIBIOTICS AT [facility].: RECEIVED : 01/19/22 18:45 SITE: Unspecified R E S U L T S URINE CULTURE,BACTERIAL FINAL 01/20/22 11:20 MIXED URETHRAL ELIUD. Normal [facility] [place] on above: Performed By: #### U RINC #### [facility] [address] [place] [address] CORONAVIRUS 2019, SCREEN ASY MPTOMATICon 01-15-2022 DATE OF SYMPTOM ONSET [YYYYMMDD]? Canceled Normal [facility] Comment on above: Order Comment: TEST CORONAVIRUS 2018, SCREEN ASYMPTOMATIC WAS CANCELLED, 01/15/2022 11:50 Updated order placed for STAT test. Performed By: #### C OVSC #### [facility] [address] [place] [address] SARS-CoV-2 (COVID-19) RNA MEKA+probe Ql (Unsp spec) Canceled Normal [facility] Comment on above: Order Comment: TEST [...] patient management decisions. Fact sheet for providers: https://www.fda.gov/media/274791/download Fact sheet for patients: https://www.fda.gov/media/021801/download This test has received FDA Emergency Use Authorization (EUA) and has been verified by [facility] ([facility]). This test is only authorized for the duration of time that circumstances exist to justify the authorization of the emergency use of in vitro diagnostic tests for the detection of SARS-CoV-2 virus and/or diagnosis of COVID-19 infection under section 564(b)(1) of the Act, 21 U.S.C. 360bbb-3(b)(1), unless the authorization is terminated or revoked sooner. [facility] is certified under CLIA-88 as qualified to perform high complexity testing. Testing is performed in the [facility] laboratories located at [address] [place] [address]. Performed By: #### C OVSC #### [facility] [address] [facility] [place] [id number] DATE OF SYMPTOM ONSET [YYYYMMDD]? Canceled Normal [facility] Comment on above: Order Comment: TEST CORONAVIRUS 2018, SCREEN ASYMPTOMATIC WAS CANCELLED, 01/15/2022 11:49 Updated order placed for STAT test. Performed By: #### C OVSC #### [facility] [address] [facility] [place] [address] SARS-CoV-2 (COVID-19) RNA MEKA+probe Ql (Unsp spec) Canceled Normal [facility] Comment on above: Order Comment: TEST [...] patient management decisions. Fact sheet for providers: https://www.fda.gov/media/548069/download Fact sheet for patients: https://www.fda.gov/media/213286/download This test has received FDA Emergency Use Authorization (EUA) and has been verified by [facility] ([facility]). This test is only authorized for the duration of time that circumstances exist to justify the authorization of the emergency use of in vitro diagnostic tests for the detection of SARS-CoV-2 virus and/or diagnosis of COVID-19 infection under section 564(b)(1) of the Act, 21 U.S.C. 360bbb-3(b)(1), unless the authorization is terminated or revoked sooner. [facility] is certified under CLIA-88 as qualified to perform high complexity testing. Testing is performed in the [facility] laboratories located at [address] [place] [address]. Performed By: #### C OVSC #### [address] [place] [address] Lab Specimen Source Nasal, Nasopharyngeal Normal [facility] Comment on above: Order Comment: TEST CORONAVIRUS 2019, SCREEN ASYMPTOMATIC WAS CANCELLED, 01/15/2022 11:49 Updated order placed for STAT test. Performed By: #### C OVSC #### [facility] [address] [place] [address] CORONAVIRUS 2019, SCREEN ASY MPTOMATICon 01-12-2022 Lab Specimen Source Nasal, Nasopharyngeal Normal [facility] Comment on above: Order Comment: TEST CORONAVIRUS 2019, SCREEN ASYMPTOMATIC WAS CANCELLED, 01/15/2022 11:50 Updated order placed for STAT test. Performed By: #### C OVSC #### [place] [address] [place] [address] CORONAVIRUS 2019, SCREEN ASY MPTOMATICon 01-08-2022 Lab Specimen Source Nasal, Nasopharyngeal Normal [facility] Comment on above: Order Comment: TEST CORONAVIRUS 2019, SCREEN ASYMPTOMATIC WAS CANCELLED, 01/15/2022 11:50 Updated order placed for STAT test. Performed By: #### C OVSC #### [facility] [address] [place] [address] Chart Updateon 01-03-2022 Chart Update Chart Update CT images from [facility] received Right upper pole non-obstructing stone. Too small to determine HU Skin to stone distance 13cm. Signatures Electronically signed by : Abi Karimi MD; Jan 03 2022 8:30PM EST (Author) Normal [employer] Office Visit (Urology)on Follow-up visit Diagnoses/Problems Assessed Kidney stones (592.0) (N20.0) Orders Kidney stones Xray Abdomen AP View; Status:Hold For - Scheduling,Retrospective Authorization; Requested for:11Jan2022; Perform:[facility]; Due:11Apr2022; Last Updated By:Katie Scott; 12/28/2021 3:25:30 PM;Ordered; For:Kidney stones; Ordered By:Abi Karimi; Radiologist to Determine Optimal Study : Y What are the patient's signs and symptoms? : kidney stones Provider Impressions 41-year-old female see me regarding kidney stones Kindly referred by Cathleen Sanz [facility]: Obesity, BMI greater than 50, depression, hypertension Saw Cathleen Sanz 12/18. Right renal colic beginning end of November, subsided to more achy tolerable pain. No longer symptomatic. First stone episode. CTU from [facility] 12/11/2021: Report only available. 5 mm [...] telehealth visit. kidney stones History of Present Eknhcqj13-xnnj-nbs female see me regarding kidney stones Kindly referred by Cathleen Sanz [facility]: Obesity, BMI greater than 50, depression, hypertension Saw Cathleen Sanz 12/18. Right renal colic beginning end of November, subsided to more achy tolerable pain. No longer symptomatic. First stone episode. CTU from [facility] 12/11/2021: Report only available. 5 mm [...] 12-20-2021 Lab Specimen Source Nasal, Nasopharyngeal Normal [facility] Comment on above: Order Comment: TEST CORONAVIRUS 2018, SCREEN ASYMPTOMATIC WAS CANCELLED, 01/15/2022 11:50 Updated order placed for STAT test. Performed By: #### C OVSC #### [facility] [address] [place] [address] IO UA (automated w/o microsc opy)on 12-18-2021 Protein (U) [Mass/Vol] Negative TA-Favgdfo-Wx [employer] [address] Work Phone: IO UA (automated w/o microscopy) (+)small - 15 XI-Dduafgy-Ck [facility] [address] Work Phone: IO UA (automated w/o microscopy) Negative YI-Mvbhfyy-Zk [employer] [facility] [address] Work Phone: IO UA (automated w/o microscopy) Normal (0.2-1.0 mg/dl) MG-Urolog y-We [employer] [facility] [address] Work Phone: IO UA (automated w/o microscopy) 8.0 1 NS-Wflpypd-Zl [employer] [address] Work Phone: IO UA (automated w/o microscopy) Trace LW-Qhcbmeq-Av [facility] [address] Work Phone: IO UA (automated w/o microscopy) 1.025 1 UA-Jokyakv-Hd [facility] [address] Work Phone: IO UA (automated w/o microscopy) Clear VK-Lupnibw[facility]Ty [facility] [address] Work Phone: IO UA (automated w/o microscopy) Yellow EG-Qbhsvkx-Ir [facility] [address] Work Phone: IO Ultrasound, measurement p ost-void resid urine and/or bl cap; no imagon 12-18-2021 IO Ultrasound, measurement post-void resid urine and/or bl cap; no imag 5 mL XH-Dxbbyuk-Sb [facility] [address] Work Phone: Office Visit (Urology)on Follow-up visit Diagnoses/Problems Assessed Kidney stones (592.0) (N20.0) Renal colic (788.0) (N23) Right flank pain (789.09) (R10.9) Orders Hematuria IO Ultrasound, measurement post-void resid urine and/or bl cap; no imag; Status:Complete; Done: [id number] 08:17AM Performed:In Office; Due:99Grv6926;Ordered; For:Hematuria; Ordered By:Arleth Sanz; Kidney stones IO UA (automated w/o microscopy); Status:Complete; Done: 70Hcx6342 08:22AM Performed:In Office; Due:75Tjv6099;Ordered; For:Kidney stones; Ordered By:Arleth Sanz; Renal colic, Right flank pain Start: Ketorolac Tromethamine 10 MG Oral Tablet; TAKE 1 TABLET EVERY 6 HOURS WITH FOOD Rx By: Arleth Sanz; Dispense: 5 Days ; #:20 Tablet; Refill: 0;For: Renal colic, Right flank pain; NILSON = N; Verified Transmission to [employer] [address]; Last Updated By: [employer]; 12/18/2021 8:45:56 AM Patient Discussion/Summary 41-year-old female [...] Chief Complaint Kidney Stones History of Present Olwbpid75m female who presents for evaluation of nephrolithiasis, [...] (462) (J02. (more content not included)... Normal [facility] Tobacco Screening.on 022 Fall risk assessment a) No falls within the last year QR-Phpqlxu-Te [employer] [address] Work Phone: Tobacco use status CPHS b) No ZT-Tpfprzg-Mi [employer] [address] Work Phone: Cult, Urineon 12-11-2021 Bacteria identified Cx Nom (U) [facility] [employer] Work Phone: IO UA (automated w/o microsc opy)on 12-11-2021 Protein (U) [Mass/Vol] Negative Normal [facility] [employer] Work Phone: IO UA (automated w/o microscopy) (+)small - 15 Abnormal [facility] [employer] Work Phone: IO UA (automated w/o microscopy) Negative Normal [facility] [employer] Work Phone: IO UA (automated w/o microscopy) Normal (0.2-1.0 mg/dl) Normal [facility] [employer] Work Phone: IO UA (automated w/o microscopy) 6.0 1 [facility] [employer] Work Phone: IO UA (automated w/o microscopy) (++)moderate - 40 Abnormal [facility] [employer] Work Phone: IO UA (automated w/o microscopy) 1.020 1 [facility] [employer] Work Phone: IO UA (automated w/o microscopy) Hazy [facility] [employer] Work Phone: IO UA (automated w/o microscopy) Soila [facility] [employer] Work Phone: Office Visit ([facility])on 12-11-2021 Follow-up visit Diagnoses/Problems Right flank [...] and in the presence of Dr. Hetal Adair. Cynthia Lfoton 12/11/21 Chief Complaint possible kidney stone. Adult [...] Migration; 2013-10-13 Foreign body in foot (917.6) (S90.352I) Hip injury, left, initial encounter (959.6) (S79.912A) History of ankle surgery (V45.89) (Z98.890) Pharyngitis, acute (462) (J02.9) Preoperative cl (more content not included)... Normal [facility] Radiologyon 12-11-2021 CT Abdomen and Pelvis WO contrast Normal -[facility] m[facility]amud Work Phone: URINE CULTURE,BACTERIALon URINE CULTURE,BACTERIAL PATIENT: SERA WOO [place] [facility] [place] [id number] : 76 AGE: SEX: F ORDERED BY: HETAL ADAIR SOURCE: URINE COLLECTED: 12/11/21 16:31 ANTIBIOTICS AT JAIR[facility].: RECEIVED : 12/12/21 00:54 SITE: Clean Catch/Voided R E S U L T S URINE CULTURE,BACTERIAL FINAL 12/12/21 17:23 NO SIGNIFICANT GROWTH. Normal [facility] Comment on above: Performed By: #### U RIN #### [facility] [address] [place] [address] XR foot RT min 3V*on 021 XR foot RT min 3V* [facility] [place] [address] [place] [address] XRay Report Signed Patient: Sera Woo MR#: [id number] 73 : 1980 Acct:[id number] Age/Sex: 40 / F ADM Date: 04/04/21 Loc[place] [facility] Room: Type: REG CLI Attending Dr: Francia Whiteside DPM, MS Ordering Provider: Francia Whiteside DPM, MS Date of Service: 04/04/21 XR/XR ankle RT min 3V*: M25.571 ([id number]) XR/XR foot RT min 3V*: M79.671 Copies to: Francia Whiteside DPM, MS Right ankle and right foot [...] Saenz Jr., M.D.04/04/2021 2:40 PM Dictation Location: [place] [address] Transcribed By: [facility] 04/04/21 1440 Dictated By: Mynor Saenz Jr, MD 04/04/21 1414 Signed By: 04/04/21 1440 Normal [facility] XR ankle RT min 3V*on 2020 XR ankle RT min 3V* [facility] [place] [address] XRay Report Signed Patient: Sera Woo MR#: [id number] 71 : 1980 Acct:[id number] Age/Sex: 40 / F ADM Date: 03/21/21 Loc: [facility] Room: Type: REG CLI Attending Dr: Francia Whiteside DPM, MS Ordering Provider: Francia Whiteside DPM, MS Date of Service: 03/21/21 XR/XR ankle RT min 3V*: M25.571 Copies to: Francia Whiteside DPM, MS RIGHT ANKLE - 3 views [...] Chelsey Bobo M.D.03/21/2021 11:41 AM Dictation Location: [place] [address] Transcribed By: [facility] 03/21/21 1141 Dictated By: Chelsey Bobo MD 03/21/21 1139 Signed By: 03/21/21 1141 [facility] XR ankle RT min 3V*on 2020 XR ankle RT min 3V* [facility] [place] [address] [place] [address] XRay Report Signed Patient: Sera Woo MR#: [id number] 71 : 1980 Acct:[id number] Age/Sex: 40 / F ADM Date: 02/21/21 Loc: [facility] Room: Type: REG CLI Attending Dr: Francia Whiteside DPM, MS Ordering Provider: Francia Whiteside DPM, MS Date of Service: 02/21/21 XR/XR ankle RT min 3V*: M25.571 ([id number]) XR/XR foot RT min 3V*: M79.671 Copies to: Francia Whiteside DPM, MS CLINICAL DATA: Ankle stiffness and [...] Chelsey Bobo M.D.02/21/2021 12:11 PM Dictation Location: [place] [address] Transcribed By: [facility] 02/21/21 1211 Dictated By: Chelsey Bobo MD 02/21/21 1207 Signed By: 02/21/21 1211 [facility] Initial Visit (Orthopaedic S urgery)on 10-10-2020 Initial [...] your surgery. Please call Pamela Dias at [phone] to schedule your surgery and if you have any further questions. Chief Complaint Pt here for right ankle pain. /tc History of Present Beniebe86-gchw-nnn woman who presents today for evaluation of [...] at outside facility on 09/27/2020 and her director process engineering surgeon placed her on nonweightbearing restrictions with boot and 2 crutches. 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 She takes Rex nightly and Advil throughout the day but still states that her pain remains quite high. Past medical history of morbid obesity Past surgical history of open reduction of the talus right foot 04/12/[address] [facility] [address] Duran Family history noncontributory to presenting problem Social history non-smoker Medications include control pill, Advil and Rex REVIEW OF SYSTEMS Constitutional: no unplanned weight [...] or Percocet. She does do well with Rex and Dilaudid. We discussed with her that [...] voiced understanding and agreement. Note dictated with Invocaf[employer]elance operator software, completed without full type editing to avoid delay. Vitals Vital Signs Recorded: 27Sgq7459 05:30PM Height5 ft 5 in Cskwmp408 lb BMI Xkhzvalggl41.93 BSA Calculated2.31 Signatures Electronically signed by : Ebony Shah MD; Oct 10 2020 5:36PM EST (Author) Normal [facility] Vital Signs Date Time Vital Sign Value Performing Clinician Facility 08-19-2024 08:23-0400 Body height 167.6 cm Hetal Adair MD Work Phone: [facility] 08-19-2024 08:23-0400 Body mass index (BMI) [Ratio] 53.88 kg/m2 Hetal Adair MD Work Phone: [facility] 08-19-2024 08:23-0400 Body temperature 97.59 [degF] Hetal Adair MD Work Phone: [facility] 08-19-2024 08:23-0400 Body weight 151.41 kg Hetal Adair MD Work Phone: [facility] 08-19-2024 08:23-0400 Diastolic blood pressure 82 mm[Hg] Hetal Adair MD Work Phone: [facility] 08-19-2024 08:23-0400 SaO2% (BldA) [Mass fraction] 95 % Hetal Adair MD Work Phone: [facility] 08-19-2024 08:23-0400 Systolic blood pressure 130 mm[Hg] Hetal Adair MD Work Phone: [facility] 12-27-2023 11:24-0500 Body height 167.6 cm Hetal Adair MD Work Phone: 0(025)857-991663 [place] [address] 12-27-2023 11:24-0500 Body mass index (BMI) [Ratio] 53.75 kg/m2 Hetal Adair MD Work Phone: 8([phone])653-745363 [place] [address] 12-27-2023 11:24-0500 Body temperature 98.01 [degF] Hetal Adair MD Work Phone: 5(237)375-837363 [place] [address] 12-27-2023 11:24-0500 Body weight 151.05 kg Hetal Adair MD Work Phone: 0(175)004-296063 [place] [address] 12-27-2023 11:24-0500 Diastolic blood pressure 80 mm[Hg] Hetal Adair MD Work Phone: 2(085)012-525513 [place] [address] 12-27-2023 11:24-0500 Heart rate 80 /min Hetal Adair MD Work Phone: 2(949)034-944363 [place] [address] 12-27-2023 11:24-0500 Systolic blood pressure 138 mm[Hg] Hetal Adair MD Work Phone: 9(650)815-079331 [address] 10-21-2023 13:20-0500 Diastolic blood pressure 80 mm[Hg] Hetal Adair MD Work Phone: 1(240)913-797531 [address] 10-21-2023 13:20-0500 Systolic blood pressure 130 mm[Hg] Hetal Adair MD Work Phone: 7(336)368-422263 [place] [address] 10-21-2023 13:05-0500 Body height 167.6 cm Hetal Adair MD Work Phone: [phone] [place] [address] 10-21-2023 13:05-0500 Body mass index (BMI) [Ratio] 53.75 kg/m2 Hetal Adair MD Work Phone: [phone] [place] [address] 10-21-2023 13:05-0500 Body temperature 98.2 [degF] Hetal Adair MD Work Phone: [phone] [place] [address] 10-21-2023 13:05-0500 Body weight 151.05 kg Hetal Adair MD Work Phone: [facility] 10-21-2023 13:05-0500 Heart rate 92 /min Hetal Adair MD Work Phone: [facility] 10-21-2023 13:05-0500 SaO2% (BldA) [Mass fraction] 96 % Hetal Adair MD Work Phone: [facility] 06-28-2023 11:54-0400 Diastolic blood pressure 80 mm[Hg] Hetal Adair MD Work Phone: [facility] 06-28-2023 11:54-0400 Systolic blood pressure 130 mm[Hg] Hetal Adair MD Work Phone: [facility] 06-28-2023 11:08-0400 Body mass index (BMI) [Ratio] 51.81 kg/m2 Hetal Adair MD Work Phone: [facility] 06-28-2023 11:08-0400 Body temperature 97.81 [degF] Hetal Adair MD Work Phone: [facility] 06-28-2023 11:08-0400 Body weight 145.6 kg Hetal Adair MD Work Phone: [facility] 06-28-2023 11:08-0400 Heart rate 94 /min Hetal Adair MD Work Phone: [facility] 04-29-2023 10:45-0400 Body height 165.1 cm Evan Feliciano Other [facility] Other 04-29-2023 10:45-0400 Diastolic blood pressure 80 mm[Hg] Evan Feliciano Other [facility] Other 04-29-2023 10:45-0400 SaO2% (BldA) [Mass fraction] 98 % Evan Feliciano Other [facility] Other 04-29-2023 10:45-0400 Systolic blood pressure 140 mm[Hg] Evan Feliciano Other [facility] Other 04-05-2023 10:00-0400 Body weight 140.62 kg Evan Feliciano Other [facility] Other 04-05-2023 10:00-0400 SaO2% (BldA) [Mass fraction] 98 % Evan Feliciano Other [facility] Other 09-11-2022 10:28-0500 Body height 167.64 cm Hetal Adair Work Phone: [facility] Work Phone: 09-11-2022 10:28-0500 Body mass index (BMI) [Ratio] 43.74 kg/m2 Hetal Adair Work Phone: [facility] Work Phone: 09-11-2022 10:28-0500 Body surface area Derived from formula 2.28 m2 Hetal Adair Work Phone: [facility] Work Phone: 09-11-2022 10:28-0500 Body temperature 96.9 [degF] Hetal Adair Work Phone: [facility] Work Phone: 09-11-2022 10:28-0500 Body weight 122.93 kg Hetal Adair Work Phone: [facility] Work Phone: 09-11-2022 10:28-0500 Diastolic blood pressure 76 mm[Hg] Hetal Adair Work Phone: [facility] Work Phone: 09-11-2022 10:28-0500 Heart rate 79 /min Hetal Adair Work Phone: [facility] Work Phone: 09-11-2022 10:28-0500 SaO2% (BldA) [Mass fraction] 100 % Hetal Adair Work Phone: [facility] Work Phone: 09-11-2022 10:28-0500 Systolic blood pressure 124 mm[Hg] Hetal Adair Work Phone: [facility] Work Phone: 08-20-2022 09:28-0400 Body height 167.64 cm Hetal Adair Work Phone: [facility] Work Phone: 08-20-2022 09:28-0400 Body mass index (BMI) [Ratio] 43.9 kg/m2 Hetal Adair Work Phone: [facility] Work Phone: 08-20-2022 09:28-0400 Body surface area Derived from formula 2.28 m2 Hetal Adair Work Phone: [facility] Work Phone: 08-20-2022 09:28-0400 Body temperature 96.9 [degF] Hetal Adair Work Phone: [facility] Work Phone: 08-20-2022 09:28-0400 Body weight 123.38 kg Hetal Adair Work Phone: [facility] Work Phone: 08-20-2022 09:28-0400 Diastolic blood pressure 72 mm[Hg] Hetal Adair Work Phone: [facility] Work Phone: 08-20-2022 09:28-0400 Heart rate 78 /min Hetal Adair Work Phone: [facility] Work Phone: 08-20-2022 09:28-0400 SaO2% (BldA) [Mass fraction] 99 % Hetal Adair Work Phone: [facility] Work Phone: 08-20-2022 09:28-0400 Systolic blood pressure 124 mm[Hg] Hetal Adair Work Phone: [facility] Work Phone: 07-18-2022 09:42-0400 Body height 167.64 cm Hetal Adair Work Phone: [facility] Work Phone: 07-18-2022 09:42-0400 Body mass index (BMI) [Ratio] 44.87 kg/m2 Hetal Adair Work Phone: [facility] Work Phone: 07-18-2022 09:42-0400 Body surface area Derived from formula 2.3 m2 Hetal Adair Work Phone: [facility] Work Phone: 07-18-2022 09:42-0400 Body weight 126.1 kg Hetal Adair Work Phone: [facility] Work Phone: 07-18-2022 09:42-0400 Diastolic blood pressure 72 mm[Hg] Hetal Adair Work Phone: [facility] Work Phone: 07-18-2022 09:42-0400 Heart rate 97 /min Hetal Adair Work Phone: [facility] Work Phone: 07-18-2022 09:42-0400 SaO2% (BldA) [Mass fraction] 99 % Hetal Adair Work Phone: [facility] Work Phone: 07-18-2022 09:42-0400 Systolic blood pressure 118 mm[Hg] Hetal Adair Work Phone: [facility] Work Phone: 12-18-2021 08:10-0500 Body height 167.64 cm Hetal Adair Work Phone: [facility] [address] Work Phone: 12-18-2021 08:10-0500 Body mass index (BMI) [Ratio] 51.65 kg/m2 Hetal Adair Work Phone: CX[facility]Ihxlofi[facility]Gzghkmf[facility] [address] Work Phone: 12-18-2021 08:10-0500 Body surface area Derived from formula 2.44 m2 Hetal Adair Work Phone: CO-Ewojhgv-Nmkdxnoy [facility] [address] Work Phone: 12-18-2021 08:10-0500 Body temperature 96.9 [degF] Hetal Adair Work Phone: OM-Eysgozh-Deqpgqxs [facility] [address] Work Phone: 12-18-2021 08:10-0500 Body weight 145.15 kg Hetal Adair Work Phone: RW-Rcbbspt-Flqswewv [facility] [employer] [address] Work Phone: 12-18-2021 08:10-0500 Diastolic blood pressure 99 mm[Hg] Hetal Adair Work Phone: MG[facility]Khrjvmn-Jhnbcaeo [facility] [address] Work Phone: 12-18-2021 08:10-0500 Heart rate 106 /min Hetal Adair Work Phone: [facility] [address] Work Phone: 12-18-2021 08:10-0500 Systolic blood pressure 155 mm[Hg] Hetal Adair Work Phone: [facility] [address] Work Phone: 12-11-2021 12:24-0500 Body height 167.64 cm Hetal Adair Work Phone: [facility] Work Phone: 12-11-2021 12:24-0500 Body mass index (BMI) [Ratio] 51.65 kg/m2 Hetal Adair Work Phone: [facility] Work Phone: 12-11-2021 12:24-0500 Body surface area Derived from formula 2.44 m2 Hetal Adair Work Phone: [facility] Work Phone: 12-11-2021 12:24-0500 Body temperature 98.3 [degF] Hetal Adair Work Phone: [facility] Work Phone: 12-11-2021 12:24-0500 Body weight 145.15 kg Hetal Adair Work Phone: [facility] Work Phone: 12-11-2021 12:24-0500 Diastolic blood pressure 80 mm[Hg] Hetal Adair Work Phone: [facility] Work Phone: 12-11-2021 12:24-0500 Heart rate 80 /min Hetal Adair Work Phone: [facility] Work Phone: 12-11-2021 12:24-0500 Systolic blood pressure 120 mm[Hg] Hetal Adair Work Phone: [facility] Work Phone: 08-11-2021 15:04-0400 Body height 167.64 cm Hetal Adair Work Phone: [facility] Work Phone: 08-11-2021 15:04-0400 Body mass index (BMI) [Ratio] 51.65 kg/m2 Hetal Adair Work Phone: [facility] Work Phone: 08-11-2021 15:04-0400 Body surface area Derived from formula 2.44 m2 Hetal Adair Work Phone: [facility] Work Phone: 08-11-2021 15:04-0400 Body temperature 98.8 [degF] Hetal Adair Work Phone: [facility] Work Phone: 08-11-2021 15:04-0400 Body weight 145.15 kg Hetal Adair Work Phone: [facility] Work Phone: 08-11-2021 15:04-0400 Diastolic blood pressure 78 mm[Hg] Hetal Adair Work Phone: [facility] Work Phone: 08-11-2021 15:04-0400 Heart rate 108 /min Hetal Hemal Adair Work Phone: [facility] Work Phone: 08-11-2021 15:04-0400 Heart rate 80 /min Hetal Hemal Adair Work Phone: [facility] Work Phone: 08-11-2021 15:04-0400 Systolic blood pressure 142 mm[Hg] Hetal Hemal Adair Work Phone: [facility] Work Phone: 08-11-2021 15:04-0400 Systolic blood pressure 130 mm[Hg] Hetal Adair Work Phone: [facility] Work Phone: 03-24-2021 09:41-0400 Body mass index (BMI) [Ratio] 52.13 kg/m2 Hetal Adair Work Phone: [facility] Work Phone: 03-24-2021 09:41-0400 Body surface area Derived from formula 2.45 m2 Hetal Adair Work Phone: [facility] Work Phone: 03-24-2021 09:41-0400 Body temperature 97.7 [degF] Hetal Adair Work Phone: [facility] Work Phone: 03-24-2021 09:41-0400 Body weight 146.51 kg Hetal Adair Work Phone: [facility] Work Phone: 03-24-2021 09:41-0400 Diastolic blood pressure 86 mm[Hg] Hetal Adair Work Phone: [facility] Work Phone: 03-24-2021 09:41-0400 Heart rate 64 /min Hetal Adair Work Phone: [facility] Work Phone: 03-24-2021 09:41-0400 Systolic blood pressure 152 mm[Hg] Hetal Adair Work Phone: [facility] Work Phone: Encounters Encounter Date Encounter Type Care Provider Facility Start: 08-27-2024 End: 08-27-2024 ambulatory [facility] Start: 08-25-2024 ambulatory [facility] Start: 08-19-2024 End: 08-19-2024 Office outpatient visit 15 minutes Hetal Adair MD Work Phone: [facility] Comment on above: Tonsillitis (Primary Dx) Start: 08-19-2024 End: 08-19-2024 ambulatory [facility] Ambulatory Start: 05-20-2024 End: 08-03-2024 ambulatory [facility] Facility:[id number] Start: 12-27-2023 End: 12-27-2023 Office outpatient visit 25 minutes Hetal Adair MD Work Phone: [facility] Comment on above: Adjustment disorder with mixed anxiety and depressed mood (Primary Dx); Weakness of both lower extremities; Bilateral hip pain Start: 12-27-2023 End: 12-27-2023 ambulatory [facility]ulatory Start: 10-21-2023 End: 10-21-2023 ambulatory HETAL ADAIR MD Facility:[id number] Start: 10-21-2023 End: 10-21-2023 Office outpatient visit 15 minutes Hetal Adair MD Work Phone: [facility] Comment on above: Bronchitis (Primary Dx) Start: 10-21-2023 End: 10-21-2023 [facility] Ambulatory Start: 07-18-2023 End: 07-18-2023 ambulatory DEWAYNE GARRISON MD Facility:[facility] Start: 06-28-2023 End: 06-28-2023 Office outpatient visit 15 minutes Hetal Adair MD Work Phone: [facility] Comment on above: 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); Benign essential hypertension; Morbid obesity with body mass index (BMI) of 50.0 to 59.9 in adult (CMS/HCC) Start: 05-30-2023 End: 05-30-2023 ambulatory Evan Feliciano Other [facility] Other Start: 05-30-2023 Telephone encounter Evan Feliciano [facility] Start: 05-16-2023 (PROC) PROCEDURE Evan Louis [facility] Start: 05-16-2023 End: 05-16-2023 ambulatory Evan Feliciano Other [facility] Other Start: 05-14-2023 End: 05-15-2023 ambulatory [facility] Facility:[facility] Start: 05-09-2023 End: 07-06-2023 ambulatory [facility] Facility:[id number] Start: 05-01-2023 End: 05-01-2023 ambulatory Evan Feliciano Other [facility] Other Start: 05-01-2023 Telephone encounter Evan Feliciano [facility] Start: 04-29-2023 End: 04-29-2023 ambulatory Evan Feliciano Other [facility] Other Start: 04-29-2023 Office outpatient vi sit 25 minutes Evan Feliciano [facility] Start: 04-15-2023 End: 04-16-2023 ambulatory HETAL ADAIR Facility:[id number] Start: 04-05-2023 End: 04-05-2023 ambulatory Evan Feliciano Other [facility] Other Start: 04-05-2023 Office consultation new/estab patient 60 min Evan Feliciano [facility] [place] Start: 04-05-2023 Telephone encounter Evan Feliciano [facility] Start: [facility] Start[facility] 02-25-2023 [facility] Start: 02-20-2023 End: 02-21-2023 ambulatory FRANCIA WHITESIDE Facility:[facility] Start: 02-06-2023 End: 05-04-2023 [id number] Start: 01-10-2023 End: 01-10-2023 ambulatory FRANCIA WHITESIDE Facility:[facility] Start: 01-08-2023 Encounter for other preprocedural examination [facility] Start: 01-08-2023 Encounter for preprocedural cardiovascular examination FRANCIA WHITESIDE [facility] Start: 01-08-2023 Encounter for preprocedural laboratory examination FRANCIA WHITESIDE [facility] Start: 01-07-2023 End: 01-08-2023 [facility] Start: 01-07-2023 End: 01-08-2023 Encounter for preprocedural laboratory examination FRANCIA WHITESIDE Facility:[facility] Start: 11-21-2022 End: 11-22-2022 [facility] Start: 11-14-2022 End: 11-15-2022 [facility] Start: 09-11-2022 Current tobacco non- user cad cap copd pv eliane Adair Work Phone: [facility] Work Phone: Start: 09-11-[address] HETAL ADAIR Facility:[id number] Start: 08-20-[address] HETAL ADAIR Facility:[id number] Start: 08-20-2022 Current tobacco non- user cad cap copd pv eliane Adair Work Phone: [facility] Work Phone: Start: 07-25-2022 End: 07-26-2022 ambulatory FRANCIA Anderson [facility] Facility:[facility] Start: 07-18-2022 Current tobacco non- user cad cap copd pv eliane Adair Work Phone: [facility] Work Phone: Start: 07-18-[address] HETAL ADAIR Facility:[id number] Start: 04-25-2022 End: 04-26-2022 ambulatory [facility]ANCIA WHITESIDE Facility:[facility] Start: 03-23-2022 Rx Renewal Hetal turner Work Phone: [facility] Work Phone: Start: 03-14-2022 ambulatory FRANCIA Anderson [facility] Faci lity:[facility]1 Start: 01-23-2022 Chart Update Hetal turner Work Phone: BK-Epsmtpx-Sqomrklf [facility] 400 DO Work Phone: Start: 01-03-2022 Chart Update Hetal turner Work Phone: RZ-Ejbkhpd-Dervbrko [facility] 400 DO Work Phone: Start: 12-28-[address] HETAL ADAIR Facility:[id number] Start: 12-20-2021 AUDIT Hetal turner Work Phone: JY-Vmrigzu-Rmqoyequ [facility] 400 DO Work Phone: Start: 12-18-2021 NPV, Provider: Arleth Sanz, Status: Pen, Time: 8:00 AM Hetal Adair Work Phone: [facility] Work Phone: Start: 12-18-2021 Office outpatient ne w 45 minutes Hetal Adair Work Phone: XU-Jernigl-Oitbyjeu [facility] [address] Work Phone: Start: 12-18-[address] HETAL ADAIR Facility:[id number] Start: 12-11-2021 Current tobacco non- user cad cap copd pv dm Hetal Adair Work Phone: [facility] Work Phone: Start: 12-11-[address] HETAL ADAIR Facility:[id number] Start: 08-11-2021 Current tobacco non- user cad cap copd pv dm Hetal Adair Work Phone: [facility] Work Phone: Start: 08-11-2021 Patient encounter procedure Hetal Adair Work Phone: [facility] Work Phone: Start: 03-24-2021 Current tobacco non- user cad cap copd pv dm Hetal Adair Work Phone: [facility] Work Phone: Preoperative state Hetal Wagner rs Work Phone: [facility] Work Phone: Procedures Date Procedure Procedure Detail Performing Clinician Ankle Surgery Hetal turner Work Phone: Comment on above: talus; Cholecystectomy Hetal ho Work Phone: Plan of Treatment Date Care Activity Detail Author Start: 2028 Zoster Vaccines (1 o f 2) Zoster Vaccines (1 of 2) [facility] Start: 07-05-2024 COVID-19 Vaccine ( season) COVID-19 Vaccine ( season) [facility] Start: 07-05-2024 Influenza vaccination Influenza Vacc ine (#1) [facility] Start: 10-21-2023 End: 10-21-2024 XR Chest 2 Views XR chest 2 views Imaging Routine Bronchitis Expected: 10/21/2023, Expires: 10/21/2024 [facility] Service Area Work Phone: Comment on above: Expected: 10/21/2023 , Expires: 10/21/2024 Start: 07-05-2023 COVID-19 Vaccine ( season) COVID-19 Vaccine ( season) [facility] Start: 07-05-2023 Influenza vaccination Influenza Vacc ine (#1) [facility] Start: 08-20-2022 [facility], Provider: Hetal Adair, Status: Pen, Time: 8:45 AM [facility], Provider: Hetal Adair, Status: Pen, Time: 8:45 AM [facility] Work Phone: Start: 01-16-2022 [facility], Provider: Abi Karimi, Status: Pen, Time: 10:30 AM [facility], Provider: Abi Karimi, Status: Pen, Time: 10:30 AM [facility]ww[facility] Work Phone: Start: 12-28-2021 [facility], Provider : Abi Karimi, Status: Pen, Time: 2:30 PM [facility], Provider: Abi Karimi, Status: Pen, Time: 2:30 PM ZP[facility]Nptcvtt[facility]Xhzaaxqj [facility] [id number] Work Phone: Start: 10-31-2021 COVID-19 Vaccine (4 - Pfizer series) COVID-19 Vaccine (4 - Pfizer series) [facility] Start: 04-21-2021 [facility], Provider: Hetal Adair, Status: Pen, Time: 2:30 PM [facility], Provider: Hetal Adair, Status: Pen, Time: 2:30 PM [facility] Work Phone: Start: 2018 Screening for malign ant neoplasm of breast Mammogram [facility] Start: 2000 DTaP/Tdap/Td Vaccine s (1 - Tdap) DTaP/Tdap/Td Vaccines (1 - Tdap) [facility] Start: 1999 Screening for malign ant neoplasm of cervix [facility] Start: 1997 Hepatitis B Vaccines (1 of 3 - 19+ 3-dose series) Hepatitis B Vaccines (1 of 3 - 19+ 3-dose series) [facility] Start: 1996 Diabetes mellitus screening Diabetes Screening [facility] Start: 1996 Hepatitis C screening Hepatitis C [facility] Start: 1979 MMR Vaccines (1 of 1 - Standard series) MMR Vaccines (1 of 1 - Standard series) [facility] Start: 1978 Hepatitis B Vaccines (1 of 3 - 3-dose series) Hepatitis B Vaccines (1 of 3 - 3-dose series) [facility] Start: 1978 HIV screening HIV Screening [facility] Start: 1978 Lipid panel Lipid Panel [facility] Start: 1978 Screening for malign ant neoplasm of colon [facility] Start: 1978 Yearly Adult Physical Yearly Adult P hysical [facility] Immunizations Immunization Date Immunization Notes Care Provider Fa cility 09-05-2021 Pfizer-BioNTech COVI D-19 Vacc 30 MCG/0.3ML Intramuscular Suspension [facility] Work Phone: 02-12-2021 Pfizer-BioNTech COVI D-19 Vacc 30 MCG/0.3ML Intramuscular Suspension Hetal Hemal Adair [facility] Work Phone: Comment on above: Series: 01-22-2021 Pfizer-BioNTech COVI D-19 Vacc 30 MCG/0.3ML Intramuscular Suspension Hetal Hemal Adair [facility] Work Phone: Comment on above: Series: Payers Date Payer Category Payer [employer] [facility] [id number] 2024 Unknown [id number] 2008 Unknown 1978 Unknown [id number] 2.16.840.1.314650.3.579.2. 356 1978 Unknown [id number] 2..840.1.062734.3.579.2. 356 1978 Unknown [id number] 2..840.1.382227.3.579.2. 356 1978 Unknown [id number] 2.16.840.1.612162.3.579.2. 356 1978 Unknown [id number] 2.16.840.1.583858.3.579.2. 356 1978 Unknown [id number] 2.16.840.1.908514.3.579.2. 356 1978 Unknown [id number] 2.16.840.1.158825.3.579.2. 593 1978 Unknown [id number] 2.16.840.1.961215.3.579.2. 593 1978 Unknown [id number] 2.16.840.1.649751.3.579.2. 593 1978 Unknown [id number] 2.16.840.1.216287.3.579.2. 593 1978 Unknown [id number] 2.16.840.1.402943.3.579.2. 593 1978 Unknown [id number] 2.16.840.1.939899.3.579.2. 593 1978 Unknown [id number] 2.16.840.1.687928.3.579.2. 593 1978 Unknown [id number] 2.16.840.1.610165.3.579.2. 593 1978 Unknown [id number] 2.16.840.1.554629.3.579.2. 159 1978 Unknown [id number] 2.16.840.1.065951.3.579.2. 159 1978 Unknown [id number] 2.16.840.1.106618.3.579.2. 159 1978 Unknown [id number] 2.16.840.1.855533.3.579.2. 159 1978 Unknown [id number] 2.16.840.1.761848.3.579.2. 159 1978 Unknown [id number] 2.16.840.1.582530.3.579.2. 159 1978 Unknown [id number] 2.16.840.1.240632.3.579.2. 159 1978 Unknown [id number] 2.16.840.1.926548.3.579.2. 159 1978 Unknown [id number] 2.16.840.1.650499.3.579.2. 159 1978 Unknown [id number] 2.16.840.1.754199.3.579.2. 159 1978 Unknown [id number] 2.16.840.1.385582.3.579.2. 159 1978 Unknown [id number] 2.16.840.1.979289.3.579.2. 1244 1978 Unknown [id number] 2.16.840.1.023761.3.579.2. 1244 1978 Unknown [id number] 2.16.840.1.304137.3.579.2. 1244 1959 Unknown [id number] Unknown [id number] Social History Date Type Detail Facility Start: 07-18-2023 End: 08-19-2024 Never a smoker Never a smoker [facility] Work Phone: Start: 07-18-2023 End: 08-19-2024 [facility] Start: 06-28-2023 Tobacco smoking status NHIS Never smoked tobacco [facility] Work Phone: Start: 06-28-2023 Tobacco use and exposure Smokeless tobacco non-user [facility] Work Phone: Start: 07-18-2023 End: 09-03-2024 Alcohol intake Current drinker of alcohol (finding) [facility] Work Phone: Start: 1980 Sex Assigned At Not on file [facility] Work Phone: Start: 10-11-2023 End: 08-19-2024 Exposure to SARS-CoV-2 (event) Not sure [facility] Clinical Notes 04-04-2020 to 08-19-2024 Hetal Adair MD - 08/19/2024 8:00 AM EDTHetal Adair MD - 12/27/2023 11:15 AM Misty Adair MD - 10/21/2023 12:15 PM Misty Adair MD - 06/28/2023 10:15 AM EDT Note Date & Type Note Facility 08-19-2024 History of Present illness Narrative Subjective Patient ID: Sera Woo is a 43 y.o. female who presents for Sore Throat (Possible tonsil stone ). Growth tonsil ST 1 week ago Feels growth back of throat on tonsil Review of Systems Constitutional: no chills, no [...] and no swollen glands . Objective BP 130/82 Temp 36.4 C (97.6 F) Ht 1.676 m (5' 6 ) Wt (!) 151 kg (333 lb 12.8 oz) SpO2 95% BMI 53.88 kg/m Physical Exam The patient appeared well [...] Assessment/Plan Problem List Items Addressed This Visit Tonsillitis - Primary Relevant Medications methylPREDNISolone (Medrol Dospak) 4 mg tablets amoxicillin-pot clavulanate (Augmentin) 875-125 mg tablet Other Relevant Orders Referral to ENT Hetal Adair MD documented in this encounter [facility] Work Phone: 06-10-2024 Note PT Outpatient Progre ss Note Entered On: 04/16/2023 8:52 EDT Performed On: 04/16/2023 8:00 EDT by Meredith Menendez PTA Review/Treatments Provided Total Visit Count : 57 Visit Count Reviewed? 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 Modified metatarsal cookie to use as lateral heel wedge to encourage calcaneus into more eversion. [place] okay to patient but will have patient use for awhile to ascertain tolerability. Attending Physician : Name: STEFAN SOTO Subjective : Pt states she is experiencing about a 15% improvement from the nreve block. She is disappointed, but is not requiring crutches in the morning. Therapeutic Exercise : Yes Shon PALACIO 04/16/2023 8:00 EDT Therapeutic Exercise Custom Therapeutic Exercise Exercise 1 Exercise 2 Exercise 3 Exercise 4 Exercise : Ankle ROM Right Towel Stretch t-band 4X Seated AROM (PF/DF)(Inv/Ev) Equipment/Device : Repetition/Time : x20 ea 20x3 KE and KF 15x2 x20 ea Resist or Assist : Red Not Performed : X HEP Given : Comment : Shon PALACIO Meredith - 04/16/2023 8:00 EDT Shon PALACIO, 04/16/2023 8:00 EDT Shon PALACIO, Meredith 04/16/2023 8:00 EDT Shon PALACIO Meredith - 04/16/2023 8:00 EDT Exercise 5 Exercise 6 Exercise 7 Exercise 8 Exercise : Seated Baps Standing with relaxed foot Modified tandem stand Seated Dome Equipment/Device : Repetition/Time : 10 ea 1 minute 10x2 3x10 Resist or Assist : Not Performed : X X X HEP Given : Comment : x4 way and CW/CCW Shon PALACIO 04/16/2023 8:00 EDT Shon PALACIO Meredith - 04/16/2023 8:00 EDT Shon PALACIO Meredith 04/16/2023 8:00 EDT Shon PALACIO Meredith - 04/16/2023 8:00 EDT Exercise 9 Exercise 10 Exercise 11 [...] HEP Given : Yes Comment : Shon LOFT PATTERNMAKER Meredith 04/16/2023 8:00 EDT Shon PTA, Meredith 04/16/2023 8:00 EDT Shon LOFT PATTERNMAKER Meredith 04/16/2023 8:00 EDT Meredith Menendez PTA 04/16/2023 8:00 EDT Exercise 14 Exercise : Gait training without AD Equipment/Device : Repetition/Time : 25 min Resist or Assist : Not Performed : HEP Given : Comment : Meredith Menendez PTA 04/16/2023 8:00 EDT Education *Barriers To Learning : None evident *Teaching Method : Demonstration, Explanation Patient Education - PT Outpatient : N/A Meredith Menendez PTA 04/16/2023 17:50 EDT Assessment PT Response to Treatment : Tolerated well PT Clinical Assessment Summary : Increased attention to gait training w/out AD, while focusing on symmetry this vist. Meredith Menendez PTA 04/16/2023 17:50 EDT Plan Frequency : 2 times per week *Duration : 8 Weeks *Treatments : Balance training, Manual therapy, Therapeutic exercises, Patient education, Gait training *Plan for Next Visit : continue with gait work. Home Exercise Program/Other PT Treatment Provided : Initiated Treatment Plan/Goals Established with Patient/Caregiver : Yes Shon HAKEEMMeredith 04/16/2023 17:50 EDT Time Spent with Patient - Outpatient PT Time In : 00:00 EST PT Time Out : 00:00 EST PT Therapeutic Exercise Time : 0 minutes LOFT PATTERNMAKER Therapeutic Exercise Units : 0 units PT Total Timed Code Treatment Units : 0 units PT Total Timed Code Tx Minutes : 0 minutes 8 Min Rule Unit Check PT OP : 0 units PT Total Treatment Time Rehab : 0 minutes 8 Min Rule Unit Difference PT OP : 0 Shon PALACIOMeredith 04/16/2023 17:50 EDT [facility] 06-10-2024 Note PT Outpatient Progre ss Note Entered On: 05/22/2024 9:40 EDT Performed On: 05/22/2024 8:41 EDT by Meredith Menendez PTA Review/Treatments Provided Total Visit Count : 2 Visit Count Reviewed? : Yes Contributor : Meredith Menendez PTA Diagnosis : Reason for Visit: s/p right ankle talus avn, m19.171=post traumatic arthritis of right ankle Attending Physician : Name: FRANCIA WHITESIDE Subjective : pt presented with B axillary crutches. Pt states she feels very weak and her endurance is teriible. No c/o ankle today, Therapeutic Exercise : Yes New Menendez PTAa 05/22/2024 8:41 EDT Therapeutic Exercise Custom Therapeutic Exercise Exercise 1 Exercise 3 Exercise 4 Exercise 5 Exercise : Nustep Warm up Gentle mobs and ROM to enhance midtarsal movement and extension of hallux. T-Band Ex for Ankle Ab sets in supine Equipment/Device : Repetition/Time : 5 10' 10 ea 5 x 10 Resist or Assist : 4 yellow Comment : New Menendez PTAa 05/22/2024 8:41 EDT Shon PALACIO [facility] 05/22/2024 8:41 EDT Shon PALACIO [facility] 05/22/2024 8:41 EDT Shon PALACIO Meredith 05/22/2024 8:41 EDT Exercise 6 Exercise 7 Exercise 8 Exercise 10 Exercise : SLR, Hip Abd with ab sets Adductor ball squeeze Bridging with ab sets modified tandem stance Equipment/Device : Pilates ring Repetition/Time : 2 x 5 5 x 10 10 20 x 2 ea Resist or Assist : Comment : PPT Shon PALACIO Meredith 05/22/2024 8:41 EDT Shon PALACIO [facility] 05/22/2024 8:41 EDT Shon PALACIO [facility] 05/22/2024 8:41 EDT Shon PALACIO Meredith 05/22/2024 8:41 EDT Exercise 11 Exercise : gait training with shoes Equipment/Device : Repetition/Time : Resist or Assist : Comment : Shon PALACIO Meredith 05/22/2024 8:41 EDT Education *Barriers To Learning : None evident *Teaching Method : Demonstration, Explanation Patient Education - PT Outpatient : Handouts given Meredith Menendez PTA 05/22/2024 11:10 EDT Assessment PT Clinical Assessment Summary : Pt completed session with good effort. Pt required Min cueing for proper form and technique throughout, to ensure optimal benefit of exs. Added exercises as outline in TherEx grid this visit, in order to progress strength and stability; pt responded favorably. Meredith Menendez PTA 05/22/2024 11:10 EDT Plan Frequency : 2 times per week *Duration : 12 Weeks *Treatments : Balance training, Manual therapy, Therapeutic exercises, Gait training, Orthotic training *Plan for Next Visit : Assess response from new exercises. Treatment Plan/Goals Established with Patient/Caregiver : Yes Shon HAKEEMMeredith - 05/22/2024 11:10 EDT Time Spent with Patient - Outpatient PT Time In : 00:00 EDT PT Time Out : 00:00 EDT PT Evaluation Units, Moderate Complexity : 0 units PT Individual Eval Time,Moderate Complex : 0 minutes PT Total Untimed Code Treatment Minutes : 0 minutes PT Total Treatment Time Rehab : 0 minutes Shon HAKEEMMeredith - 05/22/2024 11:10 EDT [facility] 06-10-2024 Note PT Outpatient Progre ss Note Entered On: 06/10/2024 13:09 EDT Performed On: 06/10/2024 12:51 EDT by Abdoulaye Aguiar PT Review/Treatments Provided Total Visit Count : 4 Visit Count Reviewed? : Yes Contributor : Abdoulaye Aguiar PT Pain Present : Yes actual or suspected pain Diagnosis : Reason for Visit: s/p right ankle talus avn, m19.171=post traumatic arthritis of right ankle Precautions/Special Notes : 06/10/24 Calcaneus locked into varus at 8 degrees. Has about 14 degrees of play at mid tarsal joint. DF/PF at about +4/5, eversion 4/5 and inversion +3/5. Amb with right hip externally rotated and knee in strong valgum and extension to get over right foot without undue pain into lateral foot. Attending Physician : Name: FRANCIA WHITESIDE Subjective : Patient c/o inability to avoid roll out of foot due to pain along 5th ray. Frustrated with limited progress although she does note better overall strength. Therapeutic Exercise : Yes Abdoulaye Aguiar PT - 06/10/2024 12:51 EDT Pain Assessment Pain Location : Other: Lateral foot Self Report Pain : Numeric rating scale Abdoulaye Aguiar PT - 06/10/2024 12:51 EDT Therapeutic Exercise Custom Therapeutic Exercise Exercise 1 Exercise 3 Exercise 4 Exercise 5 Exercise : Nustep Warm up Gentle mobs and ROM to enhance midtarsal movement and extension of hallux. T-Band Ex for Ankle Ab sets in supine Equipment/Device : Repetition/Time : 5 10' 10 ea 5 x 10 Resist or Assist : 4 yellow Comment : Abdoulaye Aguiar PT - 06/10/2024 12:51 EDT Cosme PT, Abdoulaye - 06/10/2024 12:51 EDT Cosme PT, Abdoulaye - 06/10/2024 12:51 EDT Cosme PT, Abdoulaye - 06/10/2024 12:51 EDT Exercise 6 Exercise 7 Exercise 8 Exercise 10 Exercise : SLR, Hip Abd with ab sets Adductor ball squeeze Bridging with ab sets modified tandem stance Equipment/Device : Pilates ring Repetition/Time : 10x2 5 x 10 10 20 x 2 ea Resist or Assist : Comment : PPT Cosme PT, Abdoulaye - 06/10/2024 12:51 EDT Cosme PT, Abdoulaye - 06/10/2024 12:51 EDT Cosme PT, Abdoulaye - 06/10/2024 12:51 EDT Cosme PT, Abdoulaye - 06/10/2024 12:51 EDT Exercise 11 Exercise 13 Exercise 15 Exercise 16 Exercise : gait training with shoes Weight shift with mirror Distraction and dorsal glides of right MTP joint Slow Reversals and hold relax to Great toe to improve Extension Equipment/Device : Repetition/Time : 3 x 10 2' 10x2; 10 holds Resist or Assist : Comment : Cosme DAWN, Abdoulaye - 06/10/2024 12:51 EDT Cosme PT, Abdoulaye - 06/10/2024 12:51 EDT Cosme PT, Abdoulaye - 06/10/2024 12:51 EDT Cosme PT, Abdoulaye - 06/10/2024 12:51 EDT Education *Barriers To Learning : None evident *Teaching Method : Demonstration, Explanation Patient Education - PT Outpatient : Home exercise program - progression/modification Cosme DAWN, Abdoulaye - 06/10/2024 12:51 EDT Assessment PT Clinical Assessment Summary : Patient fused into 8 degress of varus which significantly limits to pronate. Better midtarsal motion noted which helps some, but realistically cannot expect much more eversion of ankle. Primary focus would be on reducing stress to 5th ray area. Will explore possibility of unloading 5th ray via orthotic with cutout?? Also focus on getting a little better motion for great toe extension at MTP Cosme DAWN Abdoulaye - 06/10/2024 12:51 EDT Plan Frequency : 2 times per week *Duration : 12 Weeks *Treatments : Balance training, Manual therapy, Therapeutic exercises, Gait training, Orthotic training *Plan for Next Visit : Cont work on LE strengthening; work on great toe extension; cont to work on alignment of right ankle/foot with recongnition of limited potential; will followup on researching possibilities of orthotic to unload 5th ray. Treatment Plan/Goals Established with Patient/Caregiver : Yes Abdoulaye Aguiar PT - 06/10/2024 12:51 EDT Time Spent with Patient - Outpatient PT Time In : 09:00 EDT PT Time Out : 09:50 EDT PT Re-Evaluation Units, 15994 : 1 units PT Re-Evaluation Time, 13897 : 20 minutes PT Therapeutic Exercise Units : 2 units PT Therapeutic Exercise Time : 25 minutes PT Total Timed Code Treatment Units : 2 units PT Total Timed Code Tx Minutes : 25 minutes 8 Min Rule Unit Check PT OP : 2 units PT Total Untimed Code Treatment Minutes : 20 minutes PT Total Treatment Time Rehab : 45 minutes 8 Min Rule Unit Difference PT OP : 0 Abdoulaye Aguiar PT - 06/10/2024 12:51 EDT [facility] 06-10-2024 Note PT Outpatient Progre ss Note Entered On: 06/01/2024 14:43 EDT Performed On: 06/01/2024 13:20 EDT by Meredith Menendez PTA Review/Treatments Provided Total Visit Count : 3 Visit Count Reviewed? 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 Pt states she had considerable swelling on vacation and it hasn't really gone down. Therapeutic Exercise : Yes Modalities : Yes Meredith Menendez PTA - 06/01/2024 13:20 EDT Therapeutic Exercise Custom Therapeutic Exercise Exercise 1 Exercise 3 Exercise 4 Exercise 5 Exercise : Nustep Warm up Gentle mobs and ROM to enhance midtarsal movement and extension of hallux. T-Band Ex for Ankle Ab sets in supine Equipment/Device : Repetition/Time : 5 10' 10 ea 5 x 10 Resist or Assist : 4 yellow Comment : Shon PALACIO, Meredith - 06/01/2024 13:20 EDT Shon PALACIO, Meredith - 06/01/2024 13:20 EDT Shon PALACIO, Meredith - 06/01/2024 13:20 EDT Shon PALACIO, Meredith - 06/01/2024 13:20 EDT Exercise 6 Exercise 7 Exercise 8 Exercise 10 Exercise : SLR, Hip Abd with ab sets Adductor ball squeeze Bridging with ab sets modified tandem stance Equipment/Device : Pilates ring Repetition/Time : 2 x 5 5 x 10 10 20 x 2 ea Resist or Assist : Comment : PPT Shon PALACIO, Meredith - 06/01/2024 13:20 EDT Shon PALACIO Meredith - 06/01/2024 13:20 EDT Shon PALACIO Meredith - 06/01/2024 13:20 EDT Shon PALACIO Meredith - 06/01/2024 13:20 EDT Exercise 11 Exercise 13 Exercise : gait training with shoes Weight shift with mirror Equipment/Device : Repetition/Time : 3 x 10 Resist or Assist : Comment : Shon PALACIO, Meredith - 06/01/2024 13:20 EDT Shon PALACIO, Meredith - 06/01/2024 13:20 EDT Modalities Modalities Activity 1 Modality : Iontophoresis Body Region : R Settings : M Minutes : 15 minutes Shon PALACIO Meredith - 06/01/2024 13:20 EDT Education *Barriers To Learning : None evident *Teaching Method : Demonstration, Explanation Patient Education - PT Outpatient : N/A Shon PALACIO Meredith - 06/01/2024 13:20 EDT Assessment PT Response to Treatment : Demonstrated positive response to treatment, Tolerated well PT Clinical Assessment Summary : Pt responded well to today's treatment, with emphasis on proper WS in order to improve gait tasks and weight distrubution in standing. Shon PALACIO Meredith - 06/01/2024 13:20 EDT Plan Frequency : 2 times per week *Duration : 12 Weeks *Treatments : Balance training, Manual therapy, Therapeutic exercises, Gait training, Orthotic training *Plan for Next Visit : Progress gait training. Treatment Plan/Goals Established with Patient/Caregiver : Yes Shon LOFT PATTERNMAKERMeredith - 06/01/2024 13:20 EDT Time Spent with Patient - Outpatient PT Time In : 00:00 EDT PT Time Out : 00:00 EDT PT Evaluation Units, Moderate Complexity : 0 units PT Individual Eval Time,Moderate Complex : 0 minutes PT Total Untimed Code Treatment Minutes : 0 minutes PT Total Treatment Time Rehab : 0 minutes Shon HAKEEMMeredith 06/01/2024 13:20 EDT [facility] 05-20-2024 Note PT Outpatient Evalua tion Entered On: 05/20/2024 9:59 EDT Performed On: 05/20/2024 9:03 EDT by Abdoulaye Aguiar PT Reason for Treatment Total Visit Count : 1 Patient/Family Subjective Statement : here after fusion, performed January 27, 2024 Visit Count Reviewed? 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 Fusing well per CT scan. Amb with crutches. Feels like she is accomodating her gait. Short distances tolerated: 5 minutes. Uses scooter otherwise. 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 Pain Present : Yes actual or suspected pain Attending Physician : Name: FRANCIA WHITESIDE PT Current Reported Functional Limitations : Md feels she should gain about 20 degress at navicular joint (about 5 degree) Chronicity of Condition PT : Acute (less than 3 months) Affect/Behavior : Appropriate, Alert Abdoulaye Aguiar PT - 05/20/2024 9:03 EDT Past Medical History, Hospitalizations, Surgeries History of Comorbidities,Personal Factor : No personal factors and/or comorbidities Rehab Problems and Meds Reviewed : Patient's problem and medication lists were reviewed Rehab Outpt Past Medical History : No Significant Medical History Abdoulaye Aguiar PT - 05/20/2024 9:03 EDT Pain Assessment Pain Location : Foot Laterality : Right Duration : pain tay noted along lateral foot. 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 T-Band Ex for Ankle Ab sets in supine Trinitydudley DAWN Abdoulaye 05/20/2024 14:55 EDT Cosme DAWN Abdoulaye 05/20/2024 14:55 EDT Cosme LÓPEZ Abdoulaye 05/20/2024 14:55 EDT Daphnerefugio DAWN Abdoulaye 05/20/2024 14:55 EDT Exercise 6 Exercise 7 Exercise 8 Exercise 10 Exercise : SLR, Hip Abd with ab sets Adductor ball squeeze Bridging with ab sets modified tandem stance Trinitydudley DAWN Abdoulaye 05/20/2024 14:55 EDT Cosme LÓPEZ Abdoulaye 05/20/2024 14:55 EDT Cosme DAWN Abdoulaye 05/20/2024 14:55 EDT Cosme LÓPEZ Abdoulaye 05/20/2024 14:55 EDT Exercise 11 Exercise : gait training with shoes Trinitydudley DAWN Abdoulaye 05/20/2024 14:55 EDT LE ROM/Strength Detailed Range of Motion (in Degrees) : Yes Trinitydudley DAWN Abdoulaye 05/20/2024 9:03 EDT Right Strength (ref) Ankle Dorsiflexion : 4- Ankle Plantarflexion : 4- Ankle Eversion : 4 Ankle Inversion : 4- Cosme LÓPEZ Abdoulaye 05/20/2024 9:03 EDT LE ROM Degrees RLE Range of Motion (in degrees) Grid Right Ankle Dorsiflexion,Knee Extended Right Ankle Plantarflexion Range Motion Right Ankle Inversion Range Right Ankle Eversion Range Passive : -6 20 10 5 Cosme PT, Abdoulaye 05/20/2024 9:03 EDT Dittrefugio PT, Abdoulaye 05/20/2024 9:03 EDT Dittrick PT, Abdoulaye 05/20/2024 9:03 EDT Dittrick PT, Abdoulaye 05/20/2024 9:03 EDT Right Tibial Varum Position ROM Right 1st MTP Extension ROM Right 1st MTP Flexion ROM Passive : 8 degrees 30 30 Trinityttrick PT, Abdoulaye 05/20/2024 9:03 EDT Cosme PT, Abdoulaye 05/20/2024 9:03 EDT Ditammirick PT, Abdoulaye 05/20/2024 9:03 EDT Functional Outcome Measures Functional Outcome Measures - grid Activity 1 Test : Foot and Ankle Ability Measure Score : 21 9.52% Trinitytammirefugio PTAbdoulaye 05/20/2024 14:55 EDT Education *Barriers To Learning : None evident *Teaching Method : Explanation, Printed materials Patient Education - PT Outpatient : Home exercise program - progression/modification Abdoulaye Aguiar PT 05/20/2024 14:55 EDT Falls and Education Assessment Fall In The Past Year : No Prior Level of Functioning : Other: 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 Notified of Benefits and Risks of Therapy : Yes Treatment Plan Discussed with Patient : Yes Discuss Cancel/No Show Policy : Yes Abdoulaye Aguiar PT 05/20/2024 14:55 EDT Assessment *Patient/Family Receptiveness : Good *Rehabilitation Potential : Go (more content not included)... [facility] 12-27-2023 History of Present illness Narrative Subjective [...] to make sure medication is working Hetal Adair MD documented in this encounter [facility] Work Phone: 10-21-2023 Note PROCEDURE: XR CHEST [...] OLIVER INFANTE MD Signed Out: 10/21/23 14:17:29 [facility] 10-21-2023 History of Present illness Narrative [...] Relevant Orders XR chest 2 views Hetal Adair MD documented in this encounter [facility] Work Phone: 07-18-2023 Evaluation + Plan note Associated Problem(s): Morbid obesity with body mass index (BMI) of 50.0 to 59.9 in adult (CMS/HCC) Above normal BMI nutrition and physical activity reviewed [facility] Work Phone: 07-18-2023 Miscellaneous Notes Associated Problem(s): Morbid obesity with body mass index (BMI) of 50.0 to 59.9 in adult (CMS/HCC) Above normal BMI nutrition and physical activity reviewed Associated Problem(s): Avascular necrosis of right talus (CMS/HCC) Persistant pain Continue current managment documented in this encounter [facility] Work Phone: 07-18-2023 Evaluation + Plan note Associated Problem(s): Avascular necrosis of right talus (CMS/HCC) Persistant pain Continue current managment T [facility] Work Phone: 06-28-2023 History of Present illness [...] is no history of angina, kidney disease, CAD/CA, CVA, heart failure, left ventricular hypertrophy, PVD [...] Medications meloxicam (Mobic) 15 mg tablet Hetal Adair MD documented in this encounter [facility] Work Phone: 04-29-2023 Evaluation note Encounter Date [...] (ICD-10 - G89.29) Follow up after procedure [facility] Other 06-02-2023 Evaluation note* Encounter Date Diagnosis Assessment Notes [...] negative findings were considered in medical decision-making. [facility] Other 04-19-2023 NotePROCEDURE: XR ANKLE RT MIN 3 VIEWS [...] authenticated by: JERZY MURRIETA Date: 2023-02-20 10:43[facility]01-11-2023 NotePROCEDURE: XR FOOT RT MIN 3 [...] authenticated by: JERZY MURRIETA Date: 2022-11-14 13:42[facility]01-11-2023 NotePROCEDURE: XR FOOT RT MIN 3 [...] authenticated by: JERZY MURRIETA Date: 2022-11-14 13:42[facility]11-03-2022 History of Present illness NarrativePatient is a [...] states sheusually has an infection after completing antibiotic.[facility] Work Phone: 1(923) 104-807710-30-2022 History of Present illness NarrativePatient is a [...] states sheusually has an infection after completing antibiotic.[facility] Work Phone: 1(927) 841-961909-21-2022 NotePROCEDURE: XR ANKLE RT MIN 3 VIEWS [...] authenticated by: JERZY MURRIETA Date: 2022-07-25 17:41[facility]06-23-2022 NotePROCEDURE: XR ANKLE RT MIN 3 [...] authenticated by: JERZY MURRIETA Date: 2022-04-26 09:59[facility]02-14-2022 History of Present illness Narrative* Patient [...] once a week for right ankle pain. -[facility] Work Phone: 1(294) 592-969701-01-2022 History of Present illness Narrative* 41y female [...] have any effect on her flank pain. [facility] [address] Work Phone: 1(508) 875-799701-01-2022 History of Present illness Narrative* 41y female [...] have any effect on her flank pain. -[facility] Work Phone: 1(405) 828-109606-01-2020 History general Narrative - Reported* Type Description Date Surgical History dislocated talus-[place] 04/05 020 Surgical History total talus implant-Dr Vance 12/2020 Surgical History plantar fasciotomy 04/2021 Surgical History ankle arthroplasty, tenotomy, p lantar fascia 01/2023 Hospitalization History see above [facility] Other Evaluation noteNo InformationNort Kimble Other Evaluation note* Diagnosis Avascular necrosis of right talus (CMS/HCC)- Primary Benign essential hypertension Essential hypertension, benign Morbid obesity with body mass index (BMI) of 50.0 to 59.9 in adult ([facility]/HCC) documented in this encounter [facility] Work Phone: Evaluation note* Diagnosis Bronchitis- Primary Bronchitis, not specified as acute or chronic documented in this encounter [facility] Work Phone: Evaluation note* Diagnosis Adjustment disorder with mixed anxiety and depressed mood- Primary Weakness of both lower extremities Bilateral hip pain Pain in joint, pelvic region and thigh documented in this encounter [facility] Work Phone: Evaluation note* Diagnosis Avascular necrosis of right talus (Multi)- Primary Benign essential hypertension Essential hypertension, benign Morbid obesity with body mass index (BMI) of 50.0 to 59.9 in adult (Multi) Tonsillitis- Primary Acute tonsillitis documented in this encounter [facility] Work Phone: History of Present illness NarrativeVery [...] [facility] [...] She reports her armpits are also itc serijo. Patient has also been taking probiotics. * Patient reports she had a procedure for plantar fasciitis on right foot and another procedure to lengthened her calf muscle. * Patient will be going on vacation tomorrow to [place]. [facility] Work Phone: History of Present illness [...] be going on vacation tomorrow to [place]. [facility] Work Phone: History of Present illness [...] * Patient would like a referral to ob-quill cleaner. * Patient reports she has lost weight 55 lbs since March with [employer]. [facility] Work Phone: History of Present illness [...] * Patient would like a referral to ob-quill cleaner. * Patient reports she has lost weight 55 lbs since March with [employer]. [facility] Work Phone: History of Present illness [...] * Patient would like a referral to ob-quill cleaner. * Patient reports she has lost weight 55 lbs since March with [employer]. -[facility] Work Phone: History of Present illness [...] both legs. Applying heat helps a little. -[facility] Work Phone: History of Present illness [...] both legs. Applying heat helps a little. [facility] Work Phone: Reason for referral (narrative)* Consultation (Routine) - Pending Review Specialty Diagnoses / Procedures Referred By Aaron gilliam Referred To Contact Physical Therapy Diagnoses B[place] [id number] [address] [facility] [address] [place] [address] Referral ID Status Reason Start Date Expiration Date Visits Requested Visits Authorized [id number] Pending Review Specialty Services Required 12/27/2023 12/26/2024 1 1 [facility] Work Phone: Summary Purpose Family History No Family History Records FoundUnknown Family Member Name Dates Details Salivary gland [...] Bronchitis Procedures XR chest 2 [place] [id number] [place] [phone] Referral ID Status Reason Start Date Expiration Date Visits Requested Visits Authorized [id number] Authorized Perform Procedure 3 10/20/2024 1 1 Additional Source Comments INFORMATION SOURCE (unrecogn ized section and content) DATE CREATED AUTHOR 10/11/2020 [employer] DATE CREATED AUTHOR AUTHOR'S ORGANIZ ATION 11/19/2021 [facility] DATE CREATED AUTHOR AUTHOR'S ORGANIZ ATION [place]20[place] [facility] [place] CREATED AUTHOR AUTHOR'S ORGANIZ ATION 09/12/2022 [facility] DATE CREATED AUTHOR AUTHOR'S ORGANIZ ATION 09/16/2022 [employer] DATE CREATED AUTHOR AUTHOR'S ORGANIZ ATION 03/09/2023 [facility] DATE CREATED AUTHOR AUTHOR'S ORGANIZ ATION 07/19/2023 [facility] DATE CREATED AUTHOR AUTHOR'S ORGANIZ ATION 08/29/2024 [facility] DATE CREATED AUTHOR AUTHOR'S ORGANIZ ATION 09/05/2024 [facility] REASON FOR VISIT (unrecogniz ed section and content) Reason Comments Sore Throat Possible tonsil ston e Reason Comments Anxiety She is scheduled to [...] Care Teams (unrecognized sec tion and content) Cnc Manager Relationship Specialty [place] [id number] [place] [address] PCP - General 06/01/13 [place] [id number] [address] [address] PCP - MMO ACO PCP 01/02/23 Cnc Manager Relationship Specialty [place] [id number] [facility] [address] [address] PCP - General 06/01/13 [place] [address] [facility] [address] [place] [address] PCP - MMO ACO PCP 01/02/23 Cnc Manager Relationship Specialty [place] [address] [place] [address] [place] [address] PCP - General 06/01/13 [place] [address] [place] [address] [place] [address] PCP - MMO ACO PCP 11/04/23 Cnc Manager Relationship Specialty Start [place] [address] [facility] [place] [address] PCP - General 06/01/13 FOR RECORDS PERTAINING TO PATIENTS WHO ARE [...] BE BASED ON THE PRIMARY CLINICAL RECORDS. [facility]. provides no warranty or guarantee of the accuracy or completeness of information in this document.
== END 2024-10-06 09:51 | disposition home or self-care (01) ==
LOC: RAD 09:51
PROVIDERS: Visit Provider Podiatrist Foot & Ankle Surgery
DX: M25.571 Pain in right ankle and joints of right foot (principal); M24.671 Ankylosis, right ankle
CPT/HCPCS: 73610